=== PATIENT | female | born 1950 | race Caucasian/White ===

== ENCOUNTER 2018-02-22 06:00 | Day surgery (SDC) | payer MEDICARE, OTHER, SELFPAY ==
[2018-02-22] VITALS (8 sets, daily range): BP systolic 100–160; BP diastolic 58–104; PULSE 66–75; RESP 16–92; TEMP 36.3–36.9; O2SAT 93–98; BMI 36.1
[2018-02-22 07:00] LABS: Bedside Glucose 152 mg/dL (70-110)
--- NOTE | 2018-02-22 07:01 | PCM.HP.STD ---
Problem List (1) Screening for intestinal cancer Status: Acute History of Present Illness Date of Admission: 02/22/18 The patient is a 67 year old F who presents for screening for intestinal cancer. Her previous colonoscopy was 11 years ago. She denies any abdominal pain bright red blood per rectum or melena. She has not had any acute medical illnesses. There is no direct family member with colon polyps or colon cancer. She is enjoying a stable degree of health Past Medical History Allergies Penicillins [PCN] Allergy (Verified 02/20/18 09:18) Hives Sulfa (Sulfonamide Antibiotics) Allergy (Verified 02/20/18 09:18) Hives Home Medications: Ambulatory Orders Medication Instructions Recorded Levothyroxine [Synthroid] 50 mcg PO DAILY 06/17/15 Losartan/Hydrochlorothiazide 1 tab PO DAILY 06/17/15 [Hyzaar 50-12.5 Tablet] Omeprazole [Prilosec] 40 mg PO DAILY 06/17/15 Rosuvastatin Calcium [Crestor] 20 mg PO QHS 06/17/15 buPROPion XL [Wellbutrin Xl] 300 mg PO DAILY 06/17/15 Dicyclomine HCl [Bentyl] 10 mg PO PRN PRN 02/20/18 Metformin HCl 500 mg PO DAILY 02/20/18 Metoclopramide [Reglan] 10 mg PO TID PRN 02/20/18 Oxybutynin [Ditropan] 5 mg PO DAILY 02/20/18 Smoking Status: Never smoker Tobacco Use: Non-smoker Review of Systems Constitutional: Denies: Anorexia Eyes: Denies: Blurred vision HEENT: Denies: Difficulty Hearing Cardiovascular: Denies: Chest Pain Respiratory: Denies: Cough Gastrointestinal: Denies: Abdominal Pain Genitourinary: Denies: Dysuria Musculoskeletal: Reports: Joint Tenderness - Right knee pain Neurological: Denies: Balance problems Psychiatric: Denies: Anxiety Endocrine: Denies: Change in Body Habitus VTE Information - Inpt Only VTE Present on Admission: No Patient Problems: Active and Suspected Problems Screening for intestinal cancer (Acute) - Physical Exam General: Alert, Oriented x3, Cooperative, No apparent distress HEENT: Atraumatic Oral: Moist Mucosa Neck: Supple Lungs: Clear to auscultation Cardiovascular: Regular rate, Regular Rhythm Abdomen: Bowel Sounds Present, Soft, Non Tender Extremities: No clubbing Skin: No rashes Musculoskeletal: No Tenderness to Palpation of Joints or Extremities Lymphatic: No Cervical, Supraclavicular, or Inguinal Adenopathy Vital Signs Temp Pulse Resp BP Pulse Ox 98.5 F 66 18 155/89 H 97 02/22/18 06:40 02/22/18 06:40 02/22/18 06:40 02/22/18 06:40 02/22/18 06:40 Oxygen Delivery Method Room Air Weight: 210 lb 12.191 oz Body Mass Index (BMI) 36.1 POC Glucose 02/22/18 06:54 POC Glucose 152 H Assessment/Plan All Active Problems Screening for intestinal cancer (Acute) I plan to proceed with screening colonoscopy with possible biopsy or polypectomy is indicated. She is aware of the technique, benefits, risks, alternatives. We will proceed as noted. She presents via our open access program. Cc: Dr. Anca Escobar M.D., F.A.C.S.
--- NOTE | 2018-02-22 07:35 | PCM.OPRPT ---
Problem List (1) Screening for intestinal cancer Status: Acute Report of Operation Date of Procedure: 02/22/18 Pre-Operative Diagnosis: Screening for intestinal cancer Post-Operative Diagnosis: Extraordinarily tortuous lax sigmoid colon, sigmoid diverticulosis Surgery/Procedure Performed:: Colonoscopy Description of Surgical Findings:: Timeout informed consent was obtained. 67-year-old female was taken to the endoscopy suite. She was placed in a left lateral decubitus position. Throughout the procedure in aliquots she received a total of 100 mg Demerol 5 mg of Versed as intravenous sedation. Digital rectal exam performed. Lax anal tone. Grade 2-3 internal and external hemorrhoids. No mass lesions. Flexible colonoscope inserted in the rectum and immediately is difficult to obtain air insufflation due to the laxity of the anus. There was tortuosity of the sigmoid colon and extensive diverticulosis. Slowly and carefully the scope was advanced. I was able to get past the neck fracture. The patient was then placed supine and scope was further advanced. Transabdominal pressure was required to get the scope to go to the hepatic flexure and then down into the cecum. Bowel prep was good there still was some very few bits of scattered solid stool. I felt that I had adequate visualization. The cecum ileocecal valve area was achieved. The scope was carefully withdrawn from the ascending transverse descending and sigmoid colon. Due to the tight tortuosity of the sigmoid colon absolutely perfect visualization was extraordinarily difficult. I did not see any gross lesions. Excess fluid and air was aspirated free the procedure was completed with patient tolerating it well. Impression Extraordinarily tortuous sigmoid colon extensively involved with diverticulosis. Previous colonoscopy of 11 years prior. Next colonoscopy recommended in 10 years. Cc: Dr. Anca Escobar M.D., F.A.C.S. Type of Anesthesia:: IV Sedation
== END 2018-02-22 08:33 | disposition home or self-care (01) ==
LOC: EN 06:02 → AC 06:04
PROVIDERS: Family Provider Internal Medicine; PCP Internal Medicine; Visit Provider Surgery
PROC: 0DJD8ZZ Inspection of Lower Intestinal Tract, Via Natural or Artificial Opening Endoscopic (ICD-10-PCS; CPT 45378; principal; 2018-02-22 06:55)
DX: Z12.11 Encounter for screening for malignant neoplasm of colon (principal); K57.30 Diverticulosis of large intestine without perforation or abscess without bleeding; K64.2 Third degree hemorrhoids; K64.4 Residual hemorrhoidal skin tags; E11.9 Type 2 diabetes mellitus without complications; I10 Essential (primary) hypertension; E78.00 Pure hypercholesterolemia, unspecified; Z79.899 Other long term (current) drug therapy; Z78.0 Asymptomatic menopausal state; Z85.3 Personal history of malignant neoplasm of breast; Z90.12 Acquired absence of left breast and nipple; Z90.710 Acquired absence of both cervix and uterus
CPT/HCPCS: G0121; 82962; 99152; 99153; J7120

== ENCOUNTER → 2020-06-23 09:52 | Outpatient (CLI) | payer MEDICARE, OTHER, SELFPAY ==
[2020-06-17 09:19] VITALS: BMI 33.0
--- NOTE | 2020-06-23 09:56 | NM_ITS ---
CLINICAL: 69-year-old female with reported history of chronic nausea. SEMI-SOLID PHASE 99m Tc SULFUR COLLOID GASTRIC EMPTYING STUDY COMPARISON: None available FINDINGS: The patient was administered 1.1 mCi of 99m Tc sulfur colloid mixed with oatmeal and consumed per os. Image acquisitions in the anterior-posterior projections for a total of 60 minutes. There is prompt visualization of the stomach. There is no gastroesophageal reflux identified. The T ? linear fit was calculated to be 29.78 minutes, (Normal: 12-56 minutes). NM/Gastric Emptying Study IMPRESSION: 1. NORMAL 99m Tc sulfur colloid semi-solid phase (oatmeal) gastric emptying imaging examination. A. There is normal and preserved semi-solid phase gastric emptying compared to normal controls with maintained first order kinetics throughout all components of the examination. (Saima et al, J Nucl Med Tech 38: 186, 2010). Electronically Signed: Severo Moreland DO at 23:09 EST Tel , Service support ,
== END ==
PROVIDERS: PCP Internal Medicine; Referring Provider Surgery; Visit Provider Surgery
DX: R10.13 Epigastric pain (principal)
CPT/HCPCS: 78264; A9541

== ENCOUNTER 2020-07-16 07:42 | Day surgery (SDC) | payer MEDICARE, OTHER, SELFPAY ==
[2020-06-17 09:19] VITALS: BMI 33.0
[2020-07-16] VITALS (7 sets, daily range): BP systolic 99–136; BP diastolic 50–85; PULSE 67–87; RESP 16; TEMP 36.1–36.5; O2SAT 97–98; BMI 33.8
--- NOTE | 2020-07-16 07:50 | PCM.HP.BLA ---
Problem List (1) Epigastric pain Status: Acute (2) Nausea Status: Acute (3) Retrosternal pain Status: Acute History and Physical Date of Admission: 07/16/20 Intake Visit Reasons: EGD/ NAUSEA Chief Complaint: nausea/epigastric pain Executive Vice President Required: No Is patient in pain?: Yes Allergies Penicillins [PCN] Allergy (Verified 06/17/20 09:21) Hives Sulfa (Sulfonamide Antibiotics) Allergy (Verified 06/17/20 09:21) Hives Medications Omeprazole [Prilosec] 40 mg PO DAILY 06/17/15 [History Confirmed 06/17/20] buPROPion XL [Wellbutrin Xl] 300 mg PO DAILY 06/17/15 [History Confirmed 06/17/20] Dicyclomine HCl [Bentyl] 10 mg PO PRN PRN 02/20/18 [History Confirmed 06/17/20] Oxybutynin [Ditropan] 5 mg PO DAILY 02/20/18 [History Confirmed 06/17/20] biotin 1 mg capsule 1 mg PO DAILY 06/17/20 [History Confirmed 06/17/20] cholecalciferol (vitamin D3) 25 mcg (1,000 unit) capsule 25 mcg PO DAILY 06/17/20 [History Confirmed 06/17/20] fluticasone propionate 50 mcg/actuation nasal spray,suspension 1 spray INTRANASAL DAILY PRN 06/17/20 [History Confirmed 06/17/20] levothyroxine 50 mcg tablet 112 mcg PO DAILY tab 06/17/20 [History Confirmed 06/17/20] losartan 100 mg-hydrochlorothiazide 25 mg tablet 1 tab PO DAILY 06/17/20 [History Confirmed 06/17/20] metformin 500 mg tablet 500 mg PO BID tab 06/17/20 [History Confirmed 06/17/20] multivitamin 1 cap PO DAILY 06/17/20 [History] ondansetron HCl 4 mg tablet 4 mg PO Q8H PRN 06/17/20 [History Confirmed 06/17/20] rosuvastatin 20 mg tablet 10 mg PO QHS tab 06/17/20 [History Confirmed 06/17/20] sucralfate 1 gram tablet 1 g PO QAC PRN 06/17/20 [History Confirmed 06/17/20] vit C,E,zinc,copper-[id number] 250 mg-lutein 5 mg-zeaxanthin 1 mg capsule 1 cap PO DAILY 06/17/20 [History Confirmed 06/17/20] [facility] Medical History (Updated 06/17/20 @ 12:[address] Emerson Escobar MD) Retrosternal pain (Acute) Nausea (Acute) Epigastric pain (Acute) Screening for intestinal cancer (Acute) Asthma (Acute) Constipation (Acute) Diabetes (Acute) Diarrhea (Acute) Epigastric pain (Acute) GERD (gastroesophageal reflux disease) (Acute) History of left breast cancer (Acute) Hypercholesterolemia (Acute) Nausea (Acute) Thyroid disease (Acute) Hypertension (Chronic) Surgical History (Updated 06/17/20 @ 09:18 by Jina Cheng) History of appendectomy (Acute) History of bilateral knee replacement (Acute) History of cholecystectomy (Acute) History of hysterectomy (Acute) History of left mastectomy (Acute) History of left salpingo-oophorectomy (Acute) history choledochojejunostomy (Acute) history excision lipoma neck (Acute) Family History (Updated 06/17/20 @ 09:19 by Jina Cheng) Father Heart disease Mother Cancer Lung cancer Social History (Updated 06/17/20 @ 12:[address] Emerson Escobar MD) Smoking Status: Never smoker alcohol intake: never substance use type: does not use HPI HPI HPI: ROSSANA GRAHAM, is a 69 F who presents to the office today for surgical consultation. For ever she has had problems with nausea epigastric discomfort some diarrhea. Her primary care physician Dr. Anca Valencia has helped manage her. She does take Bentyl as needed with some improvement. She has been on Prilosec or similar proton pump inhibitor for prolonged period of time. She actually had better relief from AcipHex in previous years but insurance denied her coverage recently she has been awakening at night. She complains of a discomfort in the retrosternal area. She has burning in the epigastrium. No appetite nausea some intermittent diarrhea. She denies fever or chills or cough or shortness of breath or history of DVT. She has not noticed any bright red blood per rectum or melena. February 22, 2018 I performed a screening colonoscopy for her. She had an extraordinarily tortuous and lax sigmoid colon as well as sigmoid diverticulosis but no other acute findings. Previously August 07, 2015 Dr. Gus Cerrato performed an upper endoscopy. A medium size hiatal hernia was present. The stomach was felt to be normal. Helicobacter was negative at that time. There was bilious gastric fluid identified. H. pylori was negative. Stomach biopsies showed slight reactive gastropathy. In addition to the patient's PPI she has previously been prescribed Carafate. Also to in the past she is been prescribed cholestyramine with some improvement. She was disappointed however that the cholestyramine caused significant constipation causing her to cease that medication. As of June 03, 2020 her liver function tests were normal. Glucose 133. BUN 20 and creatinine 0.78. White blood cell count was 6.8 with a hemoglobin 13.5 and hematocrit of 42.4 and a platelet count of 230,000. Normal differential. Hemoglobin A1c was 6.8. Her TSH was slightly low at that setting at 0.115. HPI HPI HPI: ROSSANA GRAHAM, is a 69 F who presents to the office today for ROS General General: Yes fatigue and breast cancer; no weight change, appetite, colon cancer or weakness HEENT HEENT: No difficulty swallowing, eye injury, eye surgery, swollen glands or hoarseness Endo Endocrine: Yes thyroid disease and diabetes mellitus; no thyroid cancer, Hair loss, heat intolerance or cold intolerance Skin Skin: No rash or changing moles Breast Breast: No left breast lump, right breast lump, nipple discharge, breast pain, abnormal mammogram, abnormal US or breast enlargement Musc Musculoskeletal: No back problems, arthritis, rheumatoid arthritis, gout or joint pain Cardio Cardiovascular: Yes high blood pressure; no murmur, pacemaker, heart disease, atrial fibrillation, heart attack, heart stent, palpitations, shortness of breat with exertion or chest pain Psych Psychiatric: No depression, anxiety or hearing voices Resp Respiratory: No shortness of breath, No sleep apnea, No cough, No COPD, Yes asthma, No emphysema, No wheezing Gastro Gastrointestinal: Yes abdominal pain, Yes nausea or vomiting, Yes diarrhea, Yes constipation, No blood in stool, Yes acid reflux, No hemorrhoids, No ulcers, No gallbladder problem, No black,tarry stools Lars Hematologic: No blood thinners, No blood disorders, No bleeding, No anemia, No blood clots Neuro Neurologic: No system reviewed and no additional complaints, except as docu, No as per HPI, No abnormal walking, No abnormal hearing, No abnormal movements, No abnormal speech, No behavioral changes, No burning sensations, No confusion, No seizure-like activity, No unsteadiness, No dizziness, No localized weakness, No frequent falls, No headache(s), No lack of coordination, No loss of vision, No memory loss, No numbness, No other visual disturbances, No radiating pain, No restless legs, No sensory deficit, No fainting, No tingling, No tremor(s), No weakness, No other Exam Const General: cooperative, comfortable, no acute distress, well developed Nutritional Appearance: obese Orientation: alert, awake [facility] Head: normal to inspection Eyes General: appearance normal, both eyes and all related structures Chest Chest palpation & inspection: normal inspection of the chest Breast Palpation: No nipple discharge Resp Effort & Inspection: normal respiratory effort Auscultation: clear to auscultation bilaterally Cardio Rate: regular rate Rhythm: regular rhythm Heart Sounds: no murmurs GI Palpation: soft, no hepatosplenomegaly Auscultation: normal bowel sounds Musc Cervical Spine: normal cervical lordosis Neuro General: alert, awake Extrem General: calf tenderness Psych Thought Process: normal Assessment & Plan Problems 1. Epigastric pain R10.13 2. Nausea R11.0 3. Retrosternal pain R07.2 Plan 69-year-old female with signs and symptoms that might suggest bile reflux gastritis. She has had a previous upper endoscopy demonstrating bile within the stomach. She does not recall having had a gastric emptying study. She has currently been represcribed Carafate but that just was started 3 days ago and she has not noticed any difference. It is of additional note that she was remotely prescribed cholestyramine with improvement however with severe constipation causing it to be ceased. She does not ever recall having had a gastric emptying study. I am recommending that at this time. I am also recommending to her a esophagogastroduodenoscopy with anticipated biopsy. I would inspect carefully duodenum stomach esophagus. I would be anticipating biopsies at all site. Very careful inspection for possible H. pylori or even eosinophilic esophagitis to correlate with the retrosternal discomfort would be pursued. She has a known hiatal hernia but her symptoms appear more varied than that. It may very well be that some combination or alternation of cholestyramine with Carafate might benefit her in the future. 1 would have to contemplate how to counteract the cholestyramine constipation She has had an opportunity to ask and have questions answered. We will schedule procedure at her discretion. I appreciate the ongoing opportunity of assisting with her surgical care. Copy: Dr. Anca Escobar M.D., F.A.C.S. Orders Orders: EGD Today R10.13, R11.0 Gastric Emptying Study Today R10.13 Coding Level of Care Code Off vis,est,level 3 Diagnoses Epigastric pain R10.13 Nausea R11.0 Retrosternal pain R07.2 I have re-examined the patient. There are no clinical changes since date of exam. Procedure Criteria Procedure Type: Elective COVID Risk Discussion: The surgeon/proceduralist and patient have discussed in detail the risk of exposure to and/or potential harm posed by the COVID-19 virus with having a surgery/procedure at this time versus the risk of delaying the surgery/procedure. It is not possible to know either the risk of delaying the surgery or procedure or chance of getting an infection with perfect accuracy, but a joint decision was made between the patient and the surgeon/proceduralist to proceed at this time with the scheduled surgery/procedure as indicated on the consent form.
[2020-07-16 08:15] LABS: Bedside Glucose 142 mg/dL (70-110)
--- NOTE | 2020-07-16 08:45 | IMM_PTH ---
PATIENT: ROSSANA GRAHAM LOC: EN U#:[id number] AGE/SX: 70/F ROOM: RE07/16/[address]: Dr. Emerson Escobar MD : 1950 BED: DIS: 07/16/2020 SPEC #: [id number] RECD: 07/16/20 13:08 STATUS: MAGDA REQ #: [id number] DOMI: 07/16/20 08:[address]: Emerson Escobar DEPT: IMMUNOHISTOCHEMISTRY RECD BY: Iman Canela ENTERED: 07/16/20 13:08 SP TYPE: IMMUNO OTHR DR: Dr. Anca Valencia MD Tissues: B - Stomach, NOS Procedures: H Pylori (initial) PHYSICIAN & INSTITUTION [place] [id number] SPECIMEN INFORMATION: Tissue Source: B - Antrum biopsy Clinical Info: Epigastric pain, nausea, retrosternal pain Specimen Number: [id number] CPT code: 86159 METHODOLOGY: Deparaffinized sections of prefer/formalin-fixed tissue or PAP/DQ stained slides are incubated with monoclonal/polyclonal antibodies/oligonucleotide probes. Localization is made via biotin free immunoperoxidase method. Appropriate controls are performed and reacted as expected. Results on target cell population are indicated in the following table: RESULTS: ANTIBODY / CLONE RESULT Block B H Pylori (polyclonal) negative These tests were developed and their performance characteristics determined by [facility]. They may not have been cleared or approved by the U.S. Food and Drug Administration. The FDA has determined that such clearance or approval is not necessary. INTERPRETATION: B. Antrum, biopsy: Negative for Helicobacter pylori organisms. SJ:adam 07/20/2020
--- NOTE | 2020-07-16 08:45 | EGD_PTH ---
PATIENT: ROSSANA GRAHAM LOC: EN U#:[id number] AGE/SX: 70/F ROOM: RE07/16/[address]: Dr. Emerson Escobar MD : 1950 BED: DIS: 07/16/2020 SPEC #: [id number] RECD: 07/16/20 11:27 STATUS: MAGDA REEliz #: [id number] DOMI: 07/16/20 08:[address]: Emerson Escobar DEPT: SURGICAL PATHOLOGY RECD BY: Sindi Crockett ENTERED: 07/16/20 12:07 SP TYPE: EGD BIOPSY OTHR DR: Dr. Anca Valencia MD Tissues: A - Duodenum, NOS B - Gastric mucous membrane C - Gastric mucous membrane D - Esophagus, NOS E - Esophagus, NOS Procedures: Special Stain Group II Surgery Specimen Level IV Alcian Blue/PAS (control) HEADER OPERATION: EGD ([facility] [place]) PRE-OP DIAGNOSIS: Epigastric pain, nausea, retrosternal pain TISSUE SUBMITTED: A - Duodenum biopsy, B - Antrum biopsy for H. pylori and path, C - Greater curvature polyp biopsy, D - Distal esophagus biopsy, E - Mid esophagus biopsy MICROSCOPIC DIAGNOSIS A. Duodenum, biopsy: A fragment of duodenal mucosa, no pathologic diagnosis. B. Antrum, biopsy: Mild gastritis. See microscopic description and comment. C. Greater curvature polyp, biopsy: Fundic gland polyp. D. Distal esophagus, biopsy: A fragment of gastroesophageal mucosa with minimal chronic inflammation. Intestinal metaplasia (goblet cell metaplasia) not identified. See comment. E. Mid esophagus, biopsy: A fragment of squamous epithelium, no pathologic diagnosis. SJ:adam 07/19/2020 COMMENT B. The results of immunohistochemistry for Helicobacter pylori will be reported separately ([id number]). D. The specimen predominantly consists of squamous mucosa. Alcian blue/PAS stain with matched control is used in the evaluation of the specimen. MICROSCOPIC DESCRIPTION Slides are reviewed. B. The specimen shows fragments of gastric mucosa with chronic inflammatory cell infiltrates in the lamina propria consisting of lymphocytes and plasma cells, consistent with mild chronic gastritis. GROSS DESCRIPTION A - Received in fixative is one container labeled with the patient's name and designated duodenum biopsy. The specimen consists of one irregular fragment of light childs soft tissue that measures 0.3 x 0.3 x 0.1 cm. The specimen is totally submitted in one cassette. B - Received in fixative is one container labeled with the patient's name and designated antrum biopsy. The specimen consists of one irregular fragment of light childs soft tissue that measures 0.3 x 0.3 x 0.1 cm. The specimen is totally submitted in one cassette. C - Received in fixative is one container labeled with the patient's name and designated greater curvature polyp biopsy. The specimen consists of two irregular fragments of light childs soft tissue that in aggregate measure 0.5 x 0.2 x 0.1 cm. The specimen is totally submitted in one cassette. D - Received in fixative is one container labeled with the patient's name and designated distal esophagus biopsy. The specimen consists of one irregular fragment of light childs soft tissue that measures 0.3 x 0.3 x 0.1 cm. The specimen is totally submitted in one cassette. E - Received in fixative is one container labeled with the patient's name and designated mid esophagus biopsy. The specimen consists of one irregular fragment of light childs soft tissue that measures 0.4 x 0.3 x 0.1 cm. The specimen is totally submitted in one cassette. / SJ:rg 07/16/20 TC:3 CPT: 01971 x5, 47858
[2020-07-16] MEDS: Lactated Ringers 1,000 ML 100 ML IV (08:57)
--- NOTE | 2020-07-16 08:58 | OP.EGD_ITS ---
Patient Name: Marjorie Copeland Procedure Date: 07/16/2020 8:32 AM Date of : 1950 Age: 70 Procedure: Upper GI endoscopy Indications: Epigastric abdominal pain, Heartburn Providers: Emerson Escobar MD Referring MD: Emerson Escobar MD Medicines: See the Anesthesia note for documentation of the administered medications Complications: No immediate complications. Procedure: Pre-Anesthesia Assessment: - Prior to the procedure, a History and Physical was performed, and patient medications and allergies were reviewed. The patient's tolerance of previous anesthesia was also reviewed. The risks and benefits of the procedure and the sedation options and risks were discussed with the patient. All questions were answered, and informed consent was obtained. Prior Anticoagulants: The patient has taken no previous anticoagulant or antiplatelet agents. ASA Grade Assessment: II - A patient with mild systemic disease. After reviewing the risks and benefits, the patient was deemed in satisfactory condition to undergo the procedure. After obtaining informed consent, the endoscope was passed under direct vision. Throughout the procedure, the patient's blood pressure, pulse, and oxygen saturations were monitored continuously. The gastroscope was introduced through the mouth, and advanced to the second part of duodenum. The upper GI endoscopy was accomplished without difficulty. The patient tolerated the procedure well. Scope In: 8:42:58 AM Scope Out: 8:49:16 AM Total Procedure Duration Time 0 hours 6 minutes 18 seconds Findings: LA Grade A (one or more mucosal breaks less than 5 mm, not extending between tops of 2 mucosal folds) esophagitis with no bleeding was found 32 cm from the incisors. Biopsies were taken with a cold forceps for histology. A small hiatal hernia was present. Diffuse moderately erythematous mucosa without bleeding was found in the gastric antrum. Biopsies were taken with a cold forceps for histology. Bilious fluid was found in the stomach. The examined duodenum was normal. Biopsies were taken with a cold forceps for histology. The middle third of the esophagus was normal. Biopsies were taken with a cold forceps for histology. A few sessile polyps with no stigmata of recent bleeding were found on the greater curvature of the stomach. The polyp was removed with a cold biopsy forceps. Resection and retrieval were complete. Impression: - LA Grade A reflux esophagitis. Biopsied. - Small hiatal hernia. - Erythematous mucosa in the antrum. Biopsied. - Bilious gastric fluid. - Normal examined duodenum. Biopsied. - Normal middle third of esophagus. Biopsied. Recommendation: - Await pathology results. - Discharge patient to home. - Resume previous diet. - Continue present medications. - Telephone my office for pathology results in 1 week. Bile reflux gastritis, small hiatal hernia with minimal reflux esophagitis. Foreshorten esophagus 32cm. Ongoing medical care for binding bile and cytoprotection Procedure Code(s): --- Professional --- 36763, Esophagogastroduodenoscopy, flexible, transoral; with biopsy, single or multiple Diagnosis Code(s): --- Professional --- K21.0, Gastro-esophageal reflux disease with esophagitis K44.9, Diaphragmatic hernia without obstruction or gangrene K31.89, Other diseases of stomach and duodenum R10.13, Epigastric pain R12, Heartburn CPT copyright 2017 [employer]. All rights reserved. The codes documented in this report are preliminary and upon intern review may be revised to meet current compliance requirements. Emerson Escobar MD 07/16/2020 8:58:06 AM This report has been signed electronically. Number of Addenda: 0 Note Initiated On: 07/16/2020 8:32 AM
--- NOTE | 2020-07-16 08:58 | OP.CCLET_ITS ---
07/16/2020 Anca Valencia [address] [place] [address] Re : Upper GI endoscopy procedure for Marjorie Copeland Dear Dr. Valencia This procedure was performed on Thursday, July 16, 2020. My impressions and recommendations are as follows: Impressions : - LA Grade A reflux esophagitis. Biopsied. - Small hiatal hernia. - Erythematous mucosa in the antrum. Biopsied. - Bilious gastric fluid. - Normal examined duodenum. Biopsied. - Normal middle third of esophagus. Biopsied. Recommendations : - Await pathology results. - Discharge patient to home. - Resume previous diet. - Continue present medications. - Telephone my office for pathology results in 1 week. Bile reflux gastritis, small hiatal hernia with minimal reflux esophagitis. Foreshorten esophagus 32cm. Ongoing medical care for binding bile and cytoprotection My findings are described in the full procedure note, which is enclosed. If I can be of further assistance, please feel free to contact me at Doctor phone number(s): Work: . Sincerely, Emerson Escobar MD 07/16/2020 8:58:06 AM This report has been signed electronically.
== END 2020-07-16 09:30 | disposition home or self-care (01) ==
LOC: EN 07:44 → AC 07:44
PROVIDERS: PCP Internal Medicine; Referring Provider Surgery; Visit Provider Surgery
PROC: 0DJ08ZZ Inspection of Upper Intestinal Tract, Via Natural or Artificial Opening Endoscopic (ICD-10-PCS; CPT 43235; principal; 2020-07-16 08:40)
DX: K29.50 Unspecified chronic gastritis without bleeding (principal); R10.13 Epigastric pain; K44.9 Diaphragmatic hernia without obstruction or gangrene; K21.00 Gastro-esophageal reflux disease with esophagitis, without bleeding; K31.89 Other diseases of stomach and duodenum; K59.00 Constipation, unspecified; E11.9 Type 2 diabetes mellitus without complications; I10 Essential (primary) hypertension; K58.9 Irritable bowel syndrome, unspecified; E78.00 Pure hypercholesterolemia, unspecified; E07.9 Disorder of thyroid, unspecified; Z78.0 Asymptomatic menopausal state; Z79.84 Long term (current) use of oral hypoglycemic drugs; Z85.3 Personal history of malignant neoplasm of breast; Z96.653 Presence of artificial knee joint, bilateral
CPT/HCPCS: 43239; 82962; 87426; 88305; 88313; 88342; C9803; J7120; J2405

== ENCOUNTER → 2023-10-02 | Outpatient (CLI) | payer MEDICARE, OTHER, SELFPAY ==
[2023-10-02 18:05] LABS: CRP < 2.90 mg/L (0.0-3.0)
[2023-10-05 07:08] LABS: Endomysial Antibody IgA Negative (Negative); Immunoglobulin A 162 mg/dL (64-422); t-Transglutaminase IgA <2 U/mL (0-3)
== END | disposition home or self-care (01) ==
LOC: MTLAB 15:08
PROVIDERS: PCP Internal Medicine; Referring Provider Internal Medicine Gastroenterology; Visit Provider Internal Medicine Gastroenterology
DX: R10.9 Unspecified abdominal pain (principal); R19.7 Diarrhea, unspecified
CPT/HCPCS: 36415; 82784; 83516; 86140; 86255

== ENCOUNTER → 2023-10-04 | Outpatient (CLI) | payer MEDICARE, OTHER, SELFPAY ==
[2023-10-10 15:08] LABS: Calprotectin, Stool 84 ug/g (0-120)
== END | disposition home or self-care (01) ==
LOC: MTLAB 14:46
PROVIDERS: PCP Internal Medicine; Referring Provider Internal Medicine Gastroenterology; Visit Provider Internal Medicine Gastroenterology
DX: R10.9 Unspecified abdominal pain (principal); R19.7 Diarrhea, unspecified
CPT/HCPCS: 83993

== ENCOUNTER 2024-01-09 12:00 | Outpatient (RCR) | payer MEDICARE, OTHER, SELFPAY ==
--- NOTE | 2024-01-14 13:52 | HP.PTEVAL_ITS ---
Patient's Visit Information Visit Information Visit Information: ROSSANA GRAHAM is a 73 year old F referred to Physical Therapy by Dr. Consuelo Hilario MD with a diagnosis of Stress Urinary Incontinence. Date of Evaluation: 12/07/23 Physical Therapist: Valerie Perez PT, Cert MDT Visit Plan Frequency: 1x/Week Duration: 2-4 Months Plan: PF THERAPY FOR STRENGTHENING, LENGTHENING/RELAXATION AND ENDURANCE TRAINING. URINARY URGE AND FREQUENCY EDUCATION. HEALTHY BLADDER HABIT EDUCATION. TRAINING IN COORDINATION OF PELVIC FLOOR MUSCULATURE WITH HIP AND CORE (TRANSVERSE ABDOMINUS) MUSCULATURE. CORE STRENGTHENING. ROGER LE ROM, STRETCHING AND STRENGTHENING. TRAINING IN ABDOMINAL CAVITY PRESSURE MGMT WITH ADL'S. Subjective Subjective: Work/Leisure: RETIRED. LIVES WITH . Present symptoms: URINARY INCONTINENCE. PATIENT REPORTS IT DOESN'T STOP HER FROM DOING ANYTHING - I JUST WEAR PADS. WEARING 2-3 PADS A DAY ON AVERAGE. Present since: ABOUT 4 YEARS Pain Scale: PATIENT DENIES PAIN Is it getting better, worse or staying the same: GETTING BETTER AT NIGHT WITH CURRENT MEDICATION - NEW MEDICATION STARTED ABOUT 3 MONTHS AGO Commenced as a result of: NO APPARENT REASON Worse: COUGHING, LIFTING, SNEEZING, WAITING TOO LONG TO GO TO THE BATHROOM Better: MEDICATION Disturbed sleep: CURRENTLY GETTING UP TO URINATE ABOUT 3 TIMES A NIGHT BUT WAS 5-6 TIMES. Previous history/Previous treatment: ONE OTHER MEDICATION IN THE PAST - IT JUST STOP WORKING. HYSTERECTOMY AND TUBAL . HAD URETHRA STRETCHED ABOUT 4 TIMES YOUNG ADULT TO ALLOW BLADDER TO EMPTY - NO LONGER HAVING DIFFICULTY - WAS CAUSING INFECTION. MOTHER, DAUGHTER AND BROTHER ALSO HAD TO HAVE THE PROCEEDURE. *Patient has had lumbar surgery by Dr. Roa for herniated disc a long time ago*. Treatment this episode: MEDICATION Gait: NORMAL How long can you delay the need to urinate: USUALLY ONE TO TWO MINUTES Prolapse (Falling out feeling): NO Frequency of Urination: ABOUT EVERY 2 HOURS Ability to stop urine flow: PATIENT ISN'T SURE Ability to initiate urine stream: YES Dyspareunia: NO Bowel Incontinence: YES - SEEING DR. MCGUIRE Accidents: NO Unexplained weight loss: NO Imaging: NONE RECENT PMH/Recent major surgery: Fibromyalgia (treated with acupuncture and massage). Back Surgery. H/O Polio as a child. Retrosternal pain Nausea Epigastric pain Constipation Diarrhea GERD (gastroesophageal reflux disease) Asthma Hypertension Diabetes Thyroid disease Hypercholesterolemia History of left breast cancer Nausea Epigastric pain Screening for intestinal cancer History of hysterectomy [history excision lipoma neck] [history choledochojejunostomy] History of left mastectomy History of bilateral knee replacement History of left salpingo-oophorectomy History of cholecystectomy History of appendectomy Objective Objective: Sitting/Standing Posture: ANTERIOR PELVIC TILT. FH. RSH'S. INCREASED KYPHOSIS. Other Observations: INDEP GAIT AND TRANSFERS Sensory deficit: ROGER LE LIGHT TOUCH SENSATION GROSSLY INTACT AND SYMMETRICAL ROM deficit: ROGER HIP FLEX, HS, HIP ADD, HIP ROTATOR AND CALF TIGHTNESS. Motor deficit: ROGER LE'S GROSSLY 4/5 EXCEPT ANKLES 5/5. PELVIC FLOOR STRENGTH TESTED 12/21/23: 2/5 X 3 SEC X 3 REPS. Dural Signs: NEGATIVE ROGER LE'S. Lumbar mvmt loss: flex - MOD ext - MOD R SG - MOD L SG - EARNESTINE PATIENT DENIES PAIN WITH LUMBAR ROM TESTING. STATES SHE HAS A TENDENCY TO HAVE SOME LBP BUT ONLY IF SHE OVER-DOES IT. Core strength: POOR Palpation: PATIIENT DEFERRED PELVIC EXAM TO A FUTURE GARRISON'T DUE TO BEING ON MEDICINE FOR RECENT ILLNESS AND NOT FEELING UP TO IT/LIKE HERSELF. 12/21/23: PATIENT AGREEABLE TO HAVE PELVIC FLOOR TESTED THIS DATE AND DID NOT HAVE PELVIC FLOOR TENDERNESS OR TRIGGER POINTS WITH EXAM. FUNCTIONAL SCREEN: Incontinence Impact Questionnaire Score: 0 Urogenital Distress Inventory Score: 7 Goals Goal 1:: DECREASE URINARY LEAKAGE EPISODES TO ONE OR LESS PER DAY Goal Time Frame: 8-12 Weeks Goal 2:: PATIENT WILL SUCCESSFULLY DELAY VOIDING LONG NEEDED WHEN URGENCY OCCURS TO SUCCESSFULLY MAKE IT TO THE BATHROOM. Goal Time Frame: 4-6 Weeks Goal 3:: PATIENT WILL DEMONSTRATE/COMMUNICATE 10 CONSISTENT AND CONSECUTIVE 10 SECOND PELVIC FLOOR MUSCLE CONTRACTIONS TO DEMONSTRATE IMPROVED PELVIC FLOOR ENDURANCE. Goal Time Frame: 8-12 Weeks Goal 4:: DEVELOP HEALTHY FLUID INTAKE HABITS WITH FLUID INTAKE OF ? BODY WEIGHT IN OUNCES PER DAY AND 2/3 BEING WATER. Goal Time Frame: 4-6 Weeks Goal 5:: NORMALIZE VOIDING FREQUENCEY TO EVERY 3-4 HOURS. Goal Time Frame: 6-8 Weeks Goal 6:: PATIENT WILL BE INDEP WITH A HEP/HOME INSTRUCTIONS FOR CONTINUED IMPROVEMENT ONCE FORMAL PHYSICAL THERAPY CONCLUDES. Goal Time Frame: 8-12 Weeks Rehabilitation Potential Physical Therapy Diagnosis: THIS PATIENT PRESENTS TO PT WITH SYMPTOMS OF STRESS INCONTINENCE, URGE INCONTINENCE, AND URINARY FREQUENCY. SHE HAS CORE WEAKNESS, CORE STIFFNESS, LE WEAKNESS AND STIFFNESS ALONG WITH PF WEAKNESS. Rehabilitation Potential: Good Anticipated Interventions Patient/Client Instruction: Educate patient on: Condition, Plan of Care and Risk Factors For the Purpose of:: To improve self management Therapeutic Exercise to Include: Strength training, Endurance training, Postural training, Flexibilty training and Neuromotor development For the Purpose of:: To improve muscle performance and motor function, To increase tolerance to activity/condition/position and To increase flexibility/ROM Text: Thank you for the opportunity to evaluate your patient. For Medicare and Medicare HMO plans, please review the plan of care and approve it. It will need to be FAXED BACK to us at [phone] for Medicare purposes. For Medicare only, by signing this I certify the plan of care. Please let me know if there are questions or concerns regarding this plan of care. Physician Signature: Date:
== END 2024-01-09 19:00 | disposition home or self-care (01) ==
LOC: PT 12:00
PROVIDERS: PCP Internal Medicine; Referring Provider Obstetrics & Gynecology; Visit Provider Obstetrics & Gynecology
DX: N39.3 Stress incontinence (female) (male) (principal)
CPT/HCPCS: 97162; 97530

== ENCOUNTER 2024-04-04 12:05 | Emergency (ER) | payer MEDICARE, OTHER, SELFPAY ==
[2024-04-04 12:06] VITALS: BP 159/83; PULSE 62; RESP 15; TEMP 36.8; O2SAT 96; BMI 32.8
--- NOTE | 2024-04-04 12:26 | CT_ITS ---
STUDY: CT FACIAL BONES WITHOUT CONTRAST REASON FOR EXAM: Female, 73 years old. orbital emphysema and swelling. Recent sinus surgery. RADIATION DOSAGE (If Supplied By Facility): CTDIvol = ( 29.38 ) mGy, DLP = ( 518.07 ) mGycm TECHNIQUE: The patient was scanned in a multi detector CT scanner. Sagittal and coronal images were reconstructed. Individualized dose optimization techniques were used for this CT. COMPARISON: None. FINDINGS: Normal soft tissue structures. Normal orbital gaytan and orbital contents. Normal nasal bones and anterior nasal spine. Normal facial bones. There is no demonstrated fracture. There is opacification of the ethmoid sinuses. Mucosal thickening of the maxillary sinuses. Mild mucosal thickening of the anterior aspect of the sphenoid sinus. Mucosal thickening of the right frontal sinus. CT/Sinus/Facial Bone IMPRESSION: Partial opacification of the ethmoid sinuses. Mucosal thickening of the maxillary sinuses and sphenoid sinuses. Electronically Signed: Alex Campo MD at 13:08 EDT ,
--- NOTE | 2024-04-04 12:28 | EX.ED.VIS.EY ---
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 Patient underwent sinuplasty in the operating room at [facility] on Sunday. Postoperatively she felt dizziness and nausea and they took her to the emergency room where she underwent a stroke evaluation was admitted to the hospital. He was felt that she had a negative MRI and that she did not have a stroke. She followed up with her family bill poster installer who referred her to ophthalmology today. At the risk management consultant office it was noted that she had restriction in upward gaze in the left eye. Her eye pressures were normal. Ophthalmology Dr. García reviewed the images with local ENT Dr. Esquivel who felt concern for orbital emphysema possibly entrapment of the eye muscles and was sent to the emergency room for CT scan of the orbits/sinuses. Patient is not on any blood thinners. No recent fevers. [facility] Medical History Retrosternal pain Nausea Epigastric pain Constipation Diarrhea GERD (gastroesophageal reflux disease) Asthma Hypertension Diabetes Thyroid disease Hypercholesterolemia History of left breast cancer Nausea Epigastric pain Screening for intestinal cancer Home Medications ?Medication ?Instructions ?Recorded ?Last Taken ?Type bupropion HCl 300 mg 24 hr tablet, 300 mg PO DAILY 06/17/15 Unknown History extended release omeprazole 40 mg capsule,delayed 40 mg PO DAILY 06/17/15 Unknown History release dicyclomine 10 mg capsule 10 mg PO PRN PRN cramps 02/20/18 Unknown History oxybutynin chloride 5 mg tablet 5 mg PO DAILY 02/20/18 Unknown History biotin 1 mg capsule 1 mg PO DAILY 06/17/20 Unknown History cholecalciferol (vitamin D3) 25 25 mcg PO DAILY 06/17/20 Unknown History mcg (1,000 unit) capsule fluticasone propionate 50 1 spray intranasal DAILY PRN 06/17/20 Unknown History mcg/actuation nasal Congestion spray,suspension (Children's Flonase Allergy Relief) levothyroxine 50 mcg tablet 112 mcg PO DAILY 06/17/20 Unknown History losartan 100 1 tab PO DAILY 06/17/20 Unknown History mg-hydrochlorothiazide 25 mg tablet metformin 500 mg tablet 500 mg PO BID 06/17/20 Unknown History multivitamin 1 cap PO DAILY 06/17/20 Unknown History ondansetron HCl 4 mg tablet 4 mg PO Q8H PRN zofran 06/17/20 Unknown History (Zofran) rosuvastatin 20 mg tablet 10 mg PO QHS 06/17/20 Unknown History sucralfate 1 gram tablet (Carafate) 1 g PO 4X/DAY 06/17/20 Unknown History Neuriva 1 tab PO DAILY 07/09/20 Unknown History ascorbic acid (vitamin C) 500 mg 500 mg PO DAILY 07/09/20 Unknown History capsule elderberry fruit 460 mg-elderberry 1 ea PO 07/09/20 Unknown History flower 115 mg capsule vit C,E,zinc,copper-omega3 250 1 ea PO DAILY 07/09/20 Unknown History mg-lutein 5 mg-zeaxanthin 1 mg capsule zinc 50 mg tablet 50 mg PO 07/09/20 Unknown History cholestyramine (with sugar) 4 gram 4 g PO BID #180 ea 07/16/20 Unknown Rx powder for susp in a packet doxycycline monohydrate 100 mg 100 mg PO BID #20 CAPSULES 04/04/24 Unknown Rx capsule Allergy/AdvReac Type Severity Reaction Status Date / Time ciprofloxacin (From Cipro) Allergy Mild Hives Verified 04/04/24 12:09 Penicillins (PCN) Allergy Hives Verified 04/04/24 12:09 Sulfa (Sulfonamide Allergy Hives Verified 04/04/24 12:09 Antibiotics) Family History Father Heart disease Mother Cancer Lung cancer Surgical History History of hysterectomy history excision lipoma neck history choledochojejunostomy History of left mastectomy History of bilateral knee replacement History of left salpingo-oophorectomy History of cholecystectomy History of appendectomy Social History Smoking Status: Never smoker alcohol intake: never substance use type: does not use ROS ROS ED Constitutional Constitutional ED: Denies chills, fever(s) or weight loss Eyes Eyes: Reports change in vision and diplopia ENT ENT ED: Denies ear pain, rhinorrhea or sore throat Cardiovascular Cardiovascular: Denies chest pain, orthopnea, palpitations or racing heartbeat Respiratory/Chest Respiratory/Chest: Denies cough, dyspnea or orthopnea Gastrointestinal Gastrointestinal: Reports nausea; Denies abdominal pain, diarrhea or vomiting Genitourinary Genitourinary ED: Denies dysuria, hematuria or urinary frequency Musculoskeletal Musculoskeletal: Denies arthralgias or myalgias Integumentary Denies abscess or rash Neurologic Neurologic: Denies headache(s) or weakness Psychiatric Psychiatric: Denies anxiety, depression, suicidal ideation or suicidal thoughts Endocrine Endocrinology: Denies polydipsia, polyphagia or polyuria Allergic/Immunologic Allergic/Immunologic ED: Denies mouth swelling, tongue swelling or urticaria EXAM Physical Exam Const Vital Signs: 04/04/24 12:06 Temperature 98.2 F Temperature Source Oral Pulse Rate 62 Respiratory Rate 15 Blood Pressure 159/83 H Blood Pressure Mean 108 Pulse Ox 96 Oxygen Delivery Method Room Air Positive well nourished and well developed General Appearance ED: well developed HEENT Reports normocephalic, head/scalp atraumatic and moist mucous membranes Eyes EOMs intact bilaterally Eyes Narrative: Pupils appear dilated bilaterally. Patient has pain with movement of the eye horizontally. There is mild infraorbital bruising particularly on the right Neck no lymphadenopathy, supple and no JVD Resp normal respiratory effort and clear to auscultation bilaterally Cardio regular rate, regular rhythm and no murmurs GI normal to inspection, nondistended, normoactive bowel sounds and non-tender Palpation: soft Back/Spine no CVA tenderness and normal ROM Extremity normal to inspection General Extremety ED: Negative for edema General Extremity: Negative for edema Neuro oriented x3 and CN's II-XII intact bilaterally Sensorium / Orientation: alert Motor Exam: strength 5/5 throughout Psych mental status grossly normal Mood & Affect: Negative for depressed or tearful Skin no rashes or lesions noted and no wounds MDM MDM MDM Narrative Medical decision making narrative: Differential diagnosis includes but not limited to orbital emphysema orbital abscess orbital wall fracture orbital hematoma Noncontrasted CT was obtained read by radiology reviewed by myself. I also discussed the case again with Dr. García who reviewed it with Dr. Esquivel. Patient will be discharged home on prednisone and they have asked that I cover her with some doxycycline. Dr. García will be able to see her in the office Sunday morning at 0930 hrs. Return if worsening or concerns History & Record Review Discussion w/independent historian: Patient and Family Management Discussion w/another healthcare provider: Object Oriented Developer (Dr. Luzma García) Discharge Plan Triage Chief Complaint: Eye Problem ED Provider: Cali Hutson Dx/Rx/DC Orders Clinical Impression: Sinusitis, Diplopia Prescriptions: New doxycycline monohydrate 100 mg capsule 100 mg PO BID Qty: 20 0RF No Action losartan-hydrochlorothiazide 100-25 mg tablet 1 tab PO DAILY multivitamin Capsule 1 cap PO DAILY cholecalciferol (vitamin D3) 25 mcg (1,000 unit) capsule 25 mcg PO DAILY biotin 1 mg capsule 1 mg PO DAILY fluticasone propionate [Children's Flonase Allergy Rlf] 50 mcg/actuation spray,suspension 1 spray INTRANASAL DAILY PRN (Reason: Congestion) Rx Instructions: administer into each nostril sucralfate [Carafate] 1 gram tablet 1 g PO 4X/DAY ondansetron HCl [Zofran] 4 mg tablet 4 mg PO Q8H PRN (Reason: zofran) omeprazole 40 MG capsule 40 mg PO DAILY bupropion HCl 300 MG tablet extended release 24 hr 300 mg PO DAILY levothyroxine 50 mcg tablet 112 mcg PO DAILY rosuvastatin 20 mg tablet 10 mg PO QHS oxybutynin chloride 5 MG tablet 5 mg PO DAILY dicyclomine 10 MG capsule 10 mg PO PRN PRN (Reason: cramps) metformin 500 mg tablet 500 mg PO BID zinc 50 MG tablet 50 mg PO ascorbic acid (vitamin C) 500 MG capsule 500 mg PO DAILY elderberry fruit and flower 1 EACH capsule 1 ea PO C,E,zinc,copper [id number] 1 EACH capsule 1 ea PO DAILY Neuriva 1 tab PO DAILY cholestyramine (with sugar) 4 gram powder in packet 4 g PO BID Qty: 180 3RF Rx Instructions: administer w/meal; avoid other meds within 1hr before or 4-6hr after dose Primary Care Provider: Anca Valencia Referrals: Anca Valencia MD [Primary Care Provider] - Darya García MD [Med Staff - Active Staff] - (929 APPOINTMENT) Print Language: Wallisian Disposition Disposition: Home, Self Care Discharge Date/Time: 04/04/24 14:10
[2024-04-04 13:05] VITALS: BP 144/84; PULSE 63; RESP 16; O2SAT 93
[2024-04-04 14:00] VITALS: BP 145/85; PULSE 75; RESP 16; O2SAT 96
[2024-04-04 14:08] VITALS: BP 155/80; PULSE 65; RESP 16; TEMP 36.7; O2SAT 96
== END 2024-04-04 14:10 | disposition home or self-care (01) ==
PROVIDERS: Emergency Provider Emergency Medicine; PCP Internal Medicine; Visit Provider Emergency Medicine
DX: J32.9 Chronic sinusitis, unspecified (principal); E11.9 Type 2 diabetes mellitus without complications; H53.2 Diplopia; E78.00 Pure hypercholesterolemia, unspecified; I10 Essential (primary) hypertension; K21.9 Gastro-esophageal reflux disease without esophagitis; Z79.899 Other long term (current) drug therapy
CPT/HCPCS: 70486; 99283

== ENCOUNTER 2025-01-26 01:41 | Emergency (ER) | payer MEDICARE, OTHER, SELFPAY ==
[2025-01-26] VITALS (9 sets, daily range): BP systolic 138–172; BP diastolic 72–99; PULSE 59–78; RESP 16–20; TEMP 36.5–37.1; O2SAT 94–98; BMI 30.9
--- NOTE | 2025-01-26 02:34 | CT_ITS ---
PROCEDURE: ABDOMEN/PELVIS W IV CONT ONLY 01/26/2025 REASON FOR EXAM: EPIG, LUQ PAIN, NAUSEA TECHNIQUE: ABDOMEN/PELVIS W IV CONT ONLY Coronal and Sagittal reconstruction series were provided. CONTRAST: Isovue 370 VOLUME: 88 mL One or more dose reduction techniques were used (e.g., Automated exposure control, adjustment of the mA and/or kV according to patient size, use of iterative reconstruction technique. RADIATION DOSE SUMMARY: CTDlvol: 40 mGy DLP: 1114 mGycm COMPARISON: No FINDINGS: Under aerated lung bases. Normal heart size. Large hiatal hernia. Unremarkable liver. Status post cholecystectomy. There is biliary duct air and debris. CBD is dilated up to 3.2 cm. There is fat stranding and fluid surrounding the common bile duct. There is peripancreatic fat stranding consistent with pancreatitis. Unremarkable, adrenal glands, kidneys. No hydronephrosis or ureteral stone. Normal bladder. Status post hysterectomy. No retroperitoneal or pelvic adenopathy. No free air. Nondistended bowel. Small bowel hypomotility. Diverticulosis. No signs of appendicitis. Lumbar spine scoliosis and degeneration. No acute abdominal wall findings. CT/Abdomen/Pelvis W IV Cont ONLY IMPRESSION: Cholangitis. Consider MRCP. Pancreatitis. [facility]
--- NOTE | 2025-01-26 02:34 | ED.VIS.GI ---
HPI HPI - GI History of Present Illness Chief Complaint: Abd Pain Narrative Narrative: 74-year-old female has been having left upper quadrant abdominal pain and nausea for the last 6 hours or so, started just after eating dinner. Took an oxycodone did not help, took a Zofran, has not tried any other [id number] or home treatments. Pains feels like it is going into her mid back now. She fell about 2 weeks ago and broke her C1 and 2 vertebrae, is being treated nonoperatively and she is in a c-collar. She has had several remote abdominal surgeries nothing recently, including hysterectomy, appendectomy, choledochojejunostomy and cholecystectomy. [facility] Medical History Retrosternal pain Nausea Epigastric pain Constipation Diarrhea GERD (gastroesophageal reflux disease) Asthma Hypertension Diabetes Thyroid disease Hypercholesterolemia History of left breast cancer Nausea Epigastric pain Screening for intestinal cancer Home Medications ?Medication ?Instructions ?Recorded ?Last Taken ?Type bupropion HCl 300 mg 24 hr tablet, 300 mg PO DAILY 06/17/15 Unknown History extended release omeprazole 40 mg capsule,delayed 40 mg PO DAILY 06/17/15 Unknown History release dicyclomine 10 mg capsule 10 mg PO PRN PRN cramps 02/20/18 Unknown History cholecalciferol (vitamin D3) 25 5,000 unit PO DAILY 06/17/20 Unknown History mcg (1,000 unit) capsule fluticasone propionate 50 1 spray intranasal DAILY PRN 06/17/20 Unknown History mcg/actuation nasal Congestion spray,suspension (Children's Flonase Allergy Relief) levothyroxine 50 mcg tablet 112 mcg PO DAILY 06/17/20 Unknown History losartan 100 1 tab PO DAILY 06/17/20 Unknown History mg-hydrochlorothiazide 25 mg tablet metformin 500 mg tablet 500 mg PO BID 06/17/20 Unknown History multivitamin 1 cap PO DAILY 06/17/20 Unknown History ondansetron HCl 4 mg tablet 4 mg PO Q8H PRN zofran 06/17/20 Unknown History (Zofran) rosuvastatin 20 mg tablet 10 mg PO QHS 06/17/20 Unknown History sucralfate 1 gram tablet (Carafate) 1 g PO 4X/DAY 06/17/20 Unknown History vit C,E,copper,zinc-omega3 250 1 ea PO DAILY 07/09/20 Unknown History mg-lutein 5 mg-zeaxanthin 1 mg capsule zinc 50 mg tablet 50 mg PO 07/09/20 Unknown History celecoxib 200 mg capsule 200 mg PO DAILY PRN pain 01/26/25 Unknown History empagliflozin 25 mg tablet 25 mg PO DAILY 01/26/25 Unknown History (Jardiance) mirabegron 25 mg tablet,extended 25 mg PO DAILY 01/26/25 Unknown History release 24 hr (Myrbetriq) Allergy/AdvReac Type Severity Reaction Status Date / Time ciprofloxacin (From Cipro) Allergy Mild Hives Verified 01/26/25 01:42 Penicillins (PCN) Allergy Hives Verified 01/26/25 01:42 Sulfa (Sulfonamide Allergy Hives Verified 01/26/25 01:42 Antibiotics) neomycin AdvReac Hives Verified 01/26/25 01:42 Family History Father Heart disease Mother Cancer Lung cancer Surgical History History of hysterectomy history excision lipoma neck history choledochojejunostomy History of left mastectomy History of bilateral knee replacement History of left salpingo-oophorectomy History of cholecystectomy History of appendectomy Social History Smoking Status: Never smoker alcohol intake: never substance use type: does not use ROS ROS ED Constitutional Constitutional ED: Denies chills or fever(s) Eyes Eyes: Denies change in vision or diplopia ENT ENT ED: Denies rhinorrhea or sore throat Cardiovascular Cardiovascular: Denies chest pain or palpitations Respiratory/Chest Respiratory/Chest: Denies cough or dyspnea Gastrointestinal Gastrointestinal: Reports abdominal pain and nausea; Denies diarrhea, hematemesis, hematochezia, melena or vomiting Genitourinary Genitourinary ED: Denies dysuria or hematuria Musculoskeletal Musculoskeletal: Reports back pain; Denies neck pain Integumentary Denies abscess or rash Neurologic Neurologic: Denies headache(s), paresthesias or weakness Psychiatric Psychiatric: Denies anxiety or suicidal thoughts EXAM Physical Exam Const Vital Signs: 01/26/25 01:41 01/26/25 03:41 01/26/25 04:31 Temperature 97.7 F L 98.3 F Temperature Source Oral Oral Pulse Rate 59 L 69 76 Respiratory Rate 18 18 16 Blood Pressure 155/72 H 172/77 H 145/88 H Blood Pressure Mean 99 108 107 Pulse Ox 98 97 95 Oxygen Delivery Method Room Air Room Air Room Air 01/26/25 05:00 01/26/25 05:31 Temperature 98.2 F Temperature Source Oral Pulse Rate 71 69 Respiratory Rate 18 18 Blood Pressure 150/99 H 142/76 H Blood Pressure Mean 116 98 Pulse Ox 94 98 Oxygen Delivery Method Room Air Room Air Positive well nourished and well developed General Appearance ED: well developed and NAD HEENT Reports moist mucous membranes HEENT Narrative: Old bruising in face normocephalic and atraumatic Eyes PERRL and EOMs intact bilaterally Neck Neck Narrative: Immobilized in cervical collar Resp normal respiratory effort and clear to auscultation bilaterally Cardio regular rate, regular rhythm and no murmurs GI non-distended GI Narrative: Tender epigastrium and left upper quadrant without guarding or rebound, no evidence of pulsatile mass. Auscultation: normoactive bowel sounds Palpation: soft Back/Spine no CVA tenderness General Back: other FROM Extremity normal to inspection General Extremety ED: Negative for edema, pulses abnormal or tenderness General Extremity: Negative for edema or pulses abnormal Neuro oriented x3, CN's II-XII intact bilaterally and no sensory deficits noted Sensorium / Orientation: awake and alert Motor Exam: strength 5/5 throughout Psych mental status grossly normal and thought process normal Skin no rashes or lesions noted and no wounds MDM MDM MDM Narrative Medical decision making narrative: Patient complaining of left upper quadrant pain but also tender in epigastrium same goes into her back. She states she has had prior cholecystectomy and choledochojejunostomy. I treated her with a GI cocktail to see if that would help with possible intraluminal discomfort, which it did not. We sent labs as well as obtaining a CT of the abdomen/pelvis, I reviewed the images and the report which I agree with. It is consistent with acute pancreatitis as it is her extremely elevated lipase, and although her liver enzymes at this time are normal except for just barely elevated alkaline phosphatase, the CT is concerning for acute cholangitis. Morphine and empiric cefepime provided. Patient is clinically hemodynamically stable. In talking more with her and her , patient had choledochojejunostomy here at this hospital by Drs. Escobar and Tima because of bile reflux and the history of still producing stones despite cholecystectomy. 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 She is probably going to need an MRCP and GI consultation; GI is not available to discuss with at this hour but will be available in the morning. I discussed with our hospitalist but he recommends transfer to higher level of care especially since the patient has a relatively recent neck fracture and will not be able to be out of cervical stabilization making her higher risk if she needs ERCP. With regards to the patient's choledochojejunostomy, it was performed in 1993. I reviewed operative notes at this hospital but was unable to find any regarding the specifics of her biliary anatomy; the was under the impression that the pancreatic duct was from the common bile duct. She recently was at [facility] for her traumatic neck injury. They prefer to go back there if they have an available bed so I called for transfer. Excepted after discussing with Dr. Thomas. Will continue to support the patient here with IV fluids and symptom control as needed. Lab Data Attestation: I reviewed the patient's lab results. Labs: Laboratory Results - last 24 hr 01/26/25 01:50 WBC 9.9 RBC 4.99 Hgb 14.1 Hct 43.4 MCV 87.0 MCH 28.3 MCHC 32.5 RDW Std Deviation 40.9 RDW Coeff of Barbara 12.9 Plt Count 293 MPV 9.6 Immature Gran % (Auto) 0.200 Neut % (Auto) 80.6 H Lymph % (Auto) 13.8 L Giles % (Auto) 3.9 Eos % (Auto) 0.9 Baso % (Auto) 0.6 Absolute Neuts (auto) 8.0 H Absolute Lymphs (auto) 1.37 Nucleated RBC % 0 Sodium 138 Potassium 4.0 Chloride 100 Carbon Dioxide 24.7 Anion Gap 14 BUN 20 H Creatinine 0.62 L Estim Creat Clear Calc 59.61 Est GFR (MDRD) Non-Af 92 BUN/Creatinine Ratio 33.0 H Glucose 212 H Calcium 9.6 Total Bilirubin 0.36 AST 22 ALT 23 Alkaline Phosphatase 111 H Total Protein 6.7 Albumin 4.2 Globulin 2.5 Albumin/Globulin Ratio 1.7 Lipase > 3000 H Radiography Diagnostic Testing: Clinical Impression(s) from Imaging Studies Abdomen/Pelvis CT 01/26/25 02:34 IMPRESSION: Cholangitis. Consider MRCP. Pancreatitis. Reading Location: [place] [id number] Management Discussion w/another healthcare provider: Hospitalist and Other (Dr. Thomas, [facility]) Discharge Plan Triage Chief Complaint: Abd Pain ED Provider: Kaushik Kolb Dx/Rx/DC Orders Clinical Impression: Acute biliary pancreatitis, Acute cholangitis, Cervical vertebral fracture Prescriptions: No Action losartan-hydrochlorothiazide 100-25 mg tablet 1 tab PO DAILY multivitamin Capsule 1 cap PO DAILY cholecalciferol (vitamin D3) 25 mcg (1,000 unit) capsule 5,000 unit PO DAILY fluticasone propionate [Children's Flonase Allergy Rlf] 50 mcg/actuation spray,suspension 1 spray INTRANASAL DAILY PRN (Reason: Congestion) Rx Instructions: administer into each nostril sucralfate [Carafate] 1 gram tablet 1 g PO 4X/DAY ondansetron HCl [Zofran] 4 mg tablet 4 mg PO Q8H PRN (Reason: zofran) omeprazole 40 MG capsule 40 mg PO DAILY bupropion HCl 300 MG tablet extended release 24 hr 300 mg PO DAILY levothyroxine 50 mcg tablet 112 mcg PO DAILY rosuvastatin 20 mg tablet 10 mg PO QHS dicyclomine 10 MG capsule 10 mg PO PRN PRN (Reason: cramps) metformin 500 mg tablet 500 mg PO BID zinc 50 MG tablet 50 mg PO C,E,copper,zinc [id number] 1 EACH capsule 1 ea PO DAILY mirabegron [Myrbetriq] 25 mg tablet extended release 24 hr 25 mg PO DAILY Jardiance 25 mg tablet 25 mg PO DAILY celecoxib 200 mg capsule 200 mg PO DAILY PRN (Reason: pain) Primary Care Provider: Anca Valencia Referrals: Anca Valencia MD [Primary Care Provider] - Print Language: Scottish Disposition Disposition: Acute Care Hospital Discharge Location: [facility]
--- OUTSIDE RECORDS SUMMARY | 2025-01-26 02:38 | XMS RPT_ITS | CCD ---
Author Organization [facility] Care Team Providers Care Test Preparer Name Role Phone Fifi Green MD Primary Care Provider Annie Fifi D Primary Care Unavailable Jabour, Vincent Referring Unavailable JabourJj Attending Unavailable Dianampophelia, Fifi D Primary Care Unavailable Jabour, Vincent Referring Unavailable Jj Mcguire Attending Unavailable Talampophelia, Fifi D Primary Care Unavailable Cali Hutson Attending Unavailable Consuelo Hilario Attending Unavailable Dianampophelia, Fifi D Primary Care Unavailable Consuelo Hilario Referring Unavailable DianampFifi jacinto MD Primary Care Provider Hall FIRE CONTROL MECHANIC.MARKETING PLANNER, Duglas Unavailable Johana FIRE CONTROL MECHANIC.TRAUMA COORDINATOR, Augusto Unavailable Johana FIRE CONTROL MECHANIC.TRAUMA COORDINATOR, Augusto Unavailable Johana FIRE CONTROL MECHANIC.TRAUMA COORDINATOR, Augusto Unavailable Johana FIRE CONTROL MECHANIC.TRAUMA COORDINATOR, Augusto Unavailable TALAMPAS, FIFI Referring Unavailable WALL, XUAN B Attending Unavailable TALAMPAS, FIFI Primary Care Unavailable TALAMPAS, FIFI Referring Unavailable WALL, XUAN B Attending Unavailable TALAMPAS, FIFI Primary Care Unavailable TALAMPAS, FIFI Referring Unavailable WALL, XUAN B Attending Unavailable TALAMPAS, FIFI Primary Care Unavailable TALAMPAS, FIFI Primary Care Unavailable WALL, XUAN B Attending Unavailable TALAMPAS, FIFI Referring Unavailable Hall FIRE CONTROL MECHANIC.MARKETING PLANNER, Duglas Unavailable Dianampophelia, Fifi D Primary Care Provider TALAMPOPHELIA, FIFI D Primary Care Unavailable TALAMPAS, FIFI D Referring Unavailable TALAMPAS, FIFI D Primary Care Unavailable MICHAEL TARIQ Attending Unavailable MICHAEL TARIQ Referring Unavailable TALAMPAS, FIFI D Primary Care Unavailable TARIQMICHAEL Attending Unavailable TALAMPAS, FIFI D Primary Care Unavailable TALAMPAS, FIFI D Primary Care Unavailable TALAMPAS, FIFI D Referring Unavailable TALAMPAS, FIFI D Primary Care Unavailable TALAMPAS, FIFI D Attending Unavailable MICHAEL TARIQ Attending Unavailable TALAMPAS, FIFI D Primary Care Unavailable TALAMPAS, FIFI D Referring Unavailable TALAMPAS, FIFI D Primary Care Unavailable TALAMPAS, FIFI D Referring Unavailable DUGLAS HALL Referring Unavailable TALAMPAS, FIFI D Primary Care Unavailable TALAMPAS, FIFI D Attending Unavailable TALAMPAS, FIFI D Primary Care Unavailable TALAMPAS, FIFI D Referring Unavailable AUGUSTO BLAND Attending Unavailable TALAMPAS, FIFI D Primary Care Unavailable TALAMPAS, FIFI D Primary Care Unavailable MICHAEL TARIQ Attending Unavailable TALAMPAS, FIFI D Primary Care Unavailable TALAMPAS, FIFI D Attending Unavailable ANIYA DE LEON Attending Unavailable ANIYA DE LEON Admitting Unavailable MEGHNA SAAVEDRA Attending Unavailable MEGHNA SAAVEDRA Primary Care Unavailable MEGHNA SAAVEDRA Admitting Unavailable FIFI GREEN MD Consulting Unavailable PROVIDER, UNKNOWN Consulting Unavailable FIFI GREEN MD Consulting Unavailable JOLYNN STOKES MD Primary Care Unavailable JOLYNN STOKES MD Admitting Unavailable MEGHNA SAAVEDRA Referring Unavailable JOLYNN STOKES MD Attending Unavailable PROVIDER, UNKNOWN Consulting Unavailable FIFI GREEN MD Consulting Unavailable MEGHNA SAAVEDRA Attending Unavailable MEGHNA SAAVEDRA Primary Care Unavailable MEGHNA SAAVEDRA Admitting Unavailable PROVIDER, UNKNOWN Consulting Unavailable FIFI GREEN MD Consulting Unavailable JOLYNN STOKES MD Primary Care Unavailable JOLYNN STOKES MD Admitting Unavailable FIFI GREEN MD Referring Unavailable JOLYNN STOKES MD Attending Unavailable PROVIDER, UNKNOWN Consulting Unavailable FIFI GREEN MD Consulting Unavailable FIFI GREEN MD Referring Unavailable MERCY ROSSI DO Attending Unavailable MERCY ROSSI DO Primary Care Unavailable MERCY ROSSI DO Admitting Unavailable PROVIDER, UNKNOWN Consulting Unavailable TALAMPAS, FIFI, Primary Care Unavailable HENNY MCKEE Attending Unavailable TALAMPAS, FIFI, Primary Care Unavailable JORGITO CALI Attending Unavailable MERCY ROSSI Referring Unavailable JAYLEN HERRERA Consulting Unavailable SKINNY CAREY Admitting Unavailable SKINNY CAREY Attending Unavailable FIFI GREEN, Primary Care Unavailable Allergies Allergy Classification Reported Allergen(s) Allergy Type Date of Onset Reaction(s) Facility Aspirin (1 source) Aspirin Drug Allergy 3 [facility] HMG-CoA Reductase Inhibitors (statins) (1 source) Simvastatin Drug Allergy 6 [facility] metFORMIN (1 source) metFORMIN Drug Allergy 0 GI Upset [facility] Penicillins (antibiotic) (1 source) Penicillins Drug Allergy 3 Unknown [facility] Quinolones (antibiotic) (1 source) Ciprofloxacin Drug Allergy 0 [facility] Sulfonamides (antibiotic) (1 source) Sulfonamides (Antibiotic) Drug Allergy 3 [facility] (20 sources) Aspirin; Translations: [ASPIRIN] Drug Allergy 3 [facility] (20 sources) Ciprofloxacin; Translations: [CIPROFLOXACIN] Drug Allergy 0 [facility], [facility] Work Phone: (20 sources) metFORMIN; Translations: [METFORMIN] Drug Allergy 0 GI Upset [facility] (5 sources) Penicillins; Translations: [PENICILLINS] Propensity to adverse reactions 3 [facility] (20 sources) Simvastatin; Translations: [SIMVASTATIN] Drug Allergy 6 [facility] Work Phone: (20 sources) Sulfonamides (Antibiotic); Translations: [SULFA (SULFONAMIDE ANTIBIOTICS)] Propensity to adverse reactions 3 Unknown, [facility] (20 sources) Penicillins Propensity to adverse reactions 3 [facility] (2 sources) Penicillins Allergy to substance 1 [facility] (2 sources) Sulfonamides (Antibiotic) Allergy to substance 1 [facility] (1 source) Ciprofloxacin Drug Allergy 4 [facility] (1 source) Penicillins Drug allergy (disorder) 4 [facility] (1 source) Sulfonamides (Antibiotic) Drug allergy (disorder) 4 [facility] (6 sources) Penicillins Drug Allergy 3 Unknown [facility] (1 source) Neomycin; Translations: [NEOMYCIN] Drug Allergy 5 [facility] Rep[facility] (1 source) Sulfacetamide; Translations: [SULFACETAMIDE] Drug Allergy 5 [facility] (1 source) PSEUDOEPHEDRINE-A CETAMINOPHEN; Translations: [PSEUDOEPHEDRINE- ACETAMINOPHEN] Propensity to adverse reactions to drug (disorder) 5 [facility] Rep[facility] (4 sources) levothyroxine Drug Allergy 5 [facility] (4 sources) Penicillins Propensity to adverse reactions 5 Hives [facility] (4 sources) Neomycin-Polymyxi n-Dexameth Propensity to adverse reactions 5 Swelling [facility] (1 source) Ciprofloxacin Drug Allergy [facility] (1 source) Penicillins Drug allergy (disorder) [facility] (1 source) Sulfonamides (Antibiotic) Drug allergy (disorder) [facility] Repository Medications Current Medications Medication Drug Class(es) Dates Sig (Normalized) Sig (Original) acetaminophen 500 mg oral tablet (20 sources) Start: 01-14-2025 End: 01-24-2025 take 2 tablets by mouth every eight hours in the evening acetaminophen (Tylenol) 500 MG tablet Take 2 tablets (1,000 mg) by mouth every 8 hours for 10 days. 30 tablet 01/14/2025 3:15 PM EDT 01/14/2025 01/24/2025 Active Start: 01-14-2025 End: 01-14-2025 1,000 mg, Oral, Every 8 hour s scheduled (3 times per day), First dose on Sun01/14/25 at 1400, If inadequate response within 60 minutes, proceed to next-line agent for same PRN reason or contact provider if no further options ordered. Start: 01-14-2025 End: 01-14-2025 1,000 mg, IntraVENous, at 40 0 mL/hr, Administer over 15 Minutes, Every 6 hours scheduled (4 times per day), First dose on Sun01/14/25 at 0000 take 1 tablet by aaron th every six hours as needed acetaminophen 500 mg tablet Take 500 mg by mouth every 6 hours as needed. Active Comment on above: Take 500 mg by mouth every 6 hours as needed. ascorbic acid 500 mg oral capsule (2 sources) Vitamin C Start: 07-09-2020 take 500 mg by mouth once daily Ascorbic Acid (Vitamin C) Active 500 MG PO DAILY July 09, 2020 1:00am ascorbic acid 60 mg / cuprous oxide 2 mg / dl-alpha tocopheryl acetate 30 mg / lutein 6 mg / zinc oxide 15 mg oral capsule (4 sources) Vitamin C take 1 capsule by mouth once daily eye vitamin supplement (Ocuvite Eye Health Formula) capsule Take 1 capsule by mouth daily. Active bacitracin 0.5 unt/mg topical ointment (6 sources) Start: 01-14-2025 End: 01-24-2025 bacitracin 500 UNIT/GM ointment Apply topically 2 times daily for 10 days. 28.4 g 01/14/2025 3:15 PM EDT 01/14/2025 01/24/2025 Active Start: 01-14-2025 End: 01-14-2025 apply 1 dose topically three times daily Topical, 3 times daily, First dose on Sun01/14/25 at 0000, Nasal laceration benzonatate 100 mg oral capsule (20 sources) Non-narcotic Antitussive Start: 12-25-2023 End: 01-23-2024 take 1-2 capsules by mouth three times daily as needed benzonatate (TESSALON PERLES) 100 mg capsule Indications: Subacute pansinusitis Take 1-2 capsules by mouth three times a day as needed. 60 capsule 1 01/23/2024 Active beta-carotene,A,-vi ts C,E/mins (OCUVITE ORAL) (20 sources) take 1 capsule by mouth once daily beta-carotene,A,- vits C,E/mins (OCUVITE ORAL) Take 1 capsule by mouth once daily. Active betamethasone 0.5 mg/ml / clotrimazole 10 mg/ml topical cream (1 source) Azole Antifungal, Corticosteroid Start: 07-21-2022 End: 08-04-2022 clotrimazole-beta methasone (LOTRISONE) cream Apply to affected area twice daily for 14 days. May repeat as needed. For rash 15 g 1 07/21/2022 08/04/2022 Active Comment on above: Apply to affected ar ea twice daily for 14 days. May repeat as needed. For rash biotin 1 mg oral capsule (2 sources) Start: 06-17-2020 take 1 mg by mouth once daily Biotin Active 1 MG PO DAILY June 17, 2020 1:00am Blood-Glucose Meter (1 source) Start: 03-25-2024 End: 03-26-2024 Blood-Glucose Meter Test One time a day. Insulin Dep? No E11.65 1 Each 03/25/2024 03/26/2024 Active Blood-Glucose Meter,Continuous (FREESTYLE KISHAN 3 READER) misc (5 sources) Start: 09-26-2024 Blood-Glucose Meter,Continuous (FREESTYLE KISHAN 3 READER) misc Use to check blood sugar at least four (4) times daily. 1 Each 09/26/2024 Active Blood-Glucose Sensor (FREESTYLE KISHAN 3 PLUS SENSOR) layla (5 sources) Start: 09-26-2024 Blood-Glucose Sensor (FREESTYLE KISHAN 3 PLUS SENSOR) layla Apply new sensor every fifteen (15) days to upper arm. 6 Each 4 09/26/2024 Active C,E,Zinc,Copper [id number] (2 sources) Start: 07-09-2020 C,E,Zinc,Copper 65-[id number] Active 1 EACH PO DAILY July 09, 2020 1:00am cefdinir 300 mg oral capsule (1 source) Cephalosporin Antibacterial Start: 01-23-2024 End: 02-06-2024 take 1 capsule by mouth twice daily cefdinir (OMNICEF) 300 mg capsule Indications: Subacute pansinusitis Take 1 capsule by mouth two times a day for 14 days. 28 capsule 0 01/23/2024 02/06/2024 Active celecoxib 200 mg oral capsule (20 sources) Nonsteroidal Anti-inflammatory Drug Start: 03-13-2023 End: 01-14-2025 take 1 capsule by mouth every twenty-four hours as needed celecoxib (CeleBREX) 200 MG capsule Take 200 mg by mouth Daily as needed. Takes as needed (ordered daily initially) 12/22/2024 Active Start: 01-18-2021 End: 09-06-2022 take 1 tablet by mouth once daily at mealtime celecoxib (CELEBREX) 200 mg capsule Indications: Fibromyalgia , Osteoarthritis of cervical spine, unspecified spinal osteoarthritis complication status TAKE 1 TABLET BY MOUTH ONCE A DAY WITH FOOD 30 capsule 03/07/2022 Active Comment on above: TAKE 1 TABLET BY AARON ONCE A DAY WITH FOOD cetirizine hydrochloride 10 mg oral tablet (20 sources) Histamine-1 Receptor Antagonist take 1 tablet by mouth once daily cetirizine (ZYRTEC) 10 mg tablet Take 10 mg by mouth once daily. Active Comment on above: Take 10 mg by mouth once daily. cholecalciferol 0.025 mg oral capsule (20 sources) Vitamin D Start: 06-17-20 take 25 ug by mouth once daily Cholecalciferol (Vitamin D3) Active 25 MCG PO DAILY June 17, 2020 1:00am Start: 06-04-2017 take 1 capsule by [facility] once daily Cholecalciferol, Vitamin D3, (VITAMIN D) 1,000 unit cap Take 1 capsule by mouth once daily. 06/04/2017 Active take 1 tablet by [facility] once daily cholecalciferol (Vitamin D-3) 25 MCG (1000 UT) tablet Take 1 tablet by mouth daily. Active Comment on above: Take 1 capsule by [facility] once daily. cholestyramine resin 4000 mg powder for oral suspension (20 sources) Bile Acid Sequestrant Start: 07-16-19 take 1 dose by mouth twice daily Cholestyramine (With Sugar) Active 4 GM PO TWICE A DAY July 16, 2020 1:00am administer w/meal; avoid other meds within 1hr before or 4-6hr after dose Start: 09-03-2015 End: 03-25-2024 take 1 dose by mouth three times daily at mealtime cholestyramine (QUESTRAN) 4 gram packet Take 1 Packet by mouth three times daily with meals. 90 Packet 3 09/03/2015 03/25/2024 Discontinued (Lack of Efficacy) Comment on above: Take 1 Packet by [facility] three times daily with meals. doxycycline hyclate 100 mg oral tablet (3 sources) Tetracycline-cla ss Drug Start: 04-18-2024 End: 04-28-2024 take 1 tablet by mouth twice daily doxycycline (VIBRA-TABS) 100 mg tablet Take 1 tablet by mouth two times a day for 10 days. 20 tablet 04/18/2024 04/28/2024 Active Start: 12-25-2023 End: 01-01-2024 take 1 tablet by mouth twice daily doxycycline (VIBRA-TABS) 100 mg tablet Indications: Sinobronchitis , Vertigo Take 1 tablet by mouth two times a day for 7 days. 14 tablet 12/25/2023 01/01/2024 Elderberry Fruit And Flower (2 sources) Start: 07-09-2020 Elderberry Fruit And Flower Active 1 EACH PO July 09, 2020 1:00am empagliflozin 25 mg oral tablet (20 sources) Sodium-Glucose Cotransporter 2 Inhibitor Start: 06-27-2024 End: 09-26-2024 take 1 tablet by mouth once daily at breakfast empagliflozin (JARDIANCE) 25 mg tablet Indications: Type 2 diabetes mellitus with hyperglycemia, without long-term current use of insulin (HCC) Take 1 tablet by mouth daily with breakfast. 30 tablet 11 09/26/2024 Active Start: 03-25-2024 End: 06-27-2024 take 1 tablet by mouth once daily, then take 1 tablet by mouth once daily in the morning empagliflozin (JARDIANCE) 10 mg tablet Indications: Type 2 diabetes mellitus with hyperglycemia, without long-term current use of insulin (HCC) Take 1 tablet by mouth once daily. Take 1 tablet once daily in the morning 30 tablet 1 03/25/2024 06/27/2024 Discontinued fluconazole 150 mg oral tablet (1 source) Azole Antifungal Start: 01-23-2024 End: 01-23-2024 fluconazole (DIFLUCAN) 150 mg tablet Indications: Subacute pansinusitis Take 1 tablet by mouth one time only for 1 dose. Repeat in 3 days as needed. 2 tablet 0 01/23/2024 01/23/2024 Active fluticasone propionate 0.05 mg/actuat metered dose nasal spray (20 sources) Corticosteroid Start: 07-18-2024 End: 09-26-2024 take 2 spray(s) nasal route once daily fluticasone (FLONASE) 50 mcg/actuation nasal spray Use 2 Sprays in each nostril once daily. 48 g 3 07/18/2024 09/26/2024 Discontinued Start: 08-05-2021 End: 09-26-2024 take 2 spray(s) nasal route once daily fluticasone (FLONASE) 50 mcg/actuation nasal spray Use 2 Sprays in each nostril once daily. 09/26/2024 Active Start: 06-17-2020 take 1 spray(s) nasa l route once daily Fluticasone Propionate (Children's Flonase Allergy Rlf) 50 mcg/actuation spray,suspension Active 1 SPRAY INTRANASAL DAILY June 17, 2020 1:00am administer into each nostril Comment on above: Use 2 Sprays in each nostril once daily. As directed hydroCHLOROthiazide 25 mg / losartan potassium 100 mg oral tablet (20 sources) Thiazide Diuretic, Angiotensin 2 Receptor Zaida Start: 022 End: 024 take 1 tablet by mouth once daily losartan-hydroCHLOR Othiazide (HYZAAR) 100-25 mg per tablet Indications: Primary hypertension Take 1 tablet by mouth once daily. 90 tablet 3 03/25/2024 Active Start: 06-17-2020 take 1 tablet by aaron th once daily Losartan-Hydrochlorothiazide Active 1 TA BLET PO DAILY June 17, 2020 1:00am Start: 06-17-2015 End: 06-17-2020 take 1 tablet by mouth once daily Losartan-Hydrochlorothiazide Discontinue d 1 TABLET PO DAILY June 17, 2015 1:00am June 17, 2020 10:24am Comment on above: Take 1 tablet by aaron th once daily. hyoscyamine sulfate 0.125 mg oral tablet (20 sources) Start: 4 take 1 tablet by mouth every six hours as needed hyoscyamine (LEVSIN) 0.125 mg tablet Take 0.125 mg by mouth every 6 hours as needed. 10/02/2023 Active levothyroxine sodium 0.112 mg oral tablet (20 sources) l-Thyroxine Start: 2 End: 5 take 1 tablet by mouth once daily levothyroxine (Synthroid, Levoxyl) 112 MCG tablet Take 112 mcg by mouth daily. 03/25/2024 Active Start: 06-17-2020 take 112 ug by mouth once daily Levothyroxine Active 112 MCG PO DAILY June 17, 2020 10:22am Start: 06-17-2015 End: 06-17-2020 take 50 ug by mouth once daily Levothyroxine Discontin ued 50 MCG PO DAILY June 17, 2015 1:00am June 17, 2020 10:28am Comment on above: Take 1 tablet by aaron once daily. Take on empty stomach. For thyroid meclizine hydrochloride 25 mg oral tablet (20 sources) Antiemetic Start: 4 take 1 tablet by mouth every six hours as needed for dizziness meclizine (ANTIVERT) 25 mg tab TAKE ONE TABLET BY MOUTH EVERY 6 HOURS NEEDED FOR DIZZINESS 12/12/2023 Active 24 hr metFORMIN hydrochloride 500 mg extended release oral tablet (20 sources) Biguanide Start: 2 End: 5 metFORMIN ER (GLUCOPHAGE XR) 500 mg 24 hr tablet Indications: Type 2 diabetes mellitus without complication, without long-term current use of insulin (HCC) Taking total of 4 pills per day but in divided doses 120 tablet 11 07/11/2024 Active Start: 06-17-2020 take 500 mg by mouth twice daily Metformin Active 500 MG PO TWICE A DAY June 17, 2020 10:24am Start: 02-20-2018 End: 06-17-2020 take 500 mg by mouth once daily Metformin Discontinued 500 MG PO DAILY February 20, 2018 12:00am June 17, 2020 10:28am metFORMIN, OSM, (Fortamet) 500 MG 24 hr tablet Take 1,000 mg by mouth 2 times daily (with meals). Do not crush, chew, or split. Active Comment on above: Taking total of 4 pi lls per day but in divided doses methocarbamol 500 mg oral tablet (7 sources) Muscle Relaxant Start: 5 End: 5 take 1 tablet by mouth every eight hours as needed methocarbamol (Robaxin) 500 MG tablet Take 1 tablet (500 mg) by mouth every 8 hours as needed for muscle spasms for up to 10 days. 30 tablet 01/21/2025 01/31/2025 Active Start: 01-14-2025 End: 01-14-2025 take 1 dose by mouth three times daily 500 mg, Oral, Every 8 hours scheduled (3 times per day), First dose on Sun01/14/25 at 1400 24 hr mirabegron 25 mg extended release oral tablet (20 sources) beta3-Adrenergic Agonist Start: 09-18-2023 End: 09-26-2024 take 1 tablet by mouth once daily mirabegron (MYRBETRIQ) 25 mg Tb24 Indications: Urge incontinence of urine Take 1 tablet by mouth once daily. 30 tablet 11 09/26/2024 Active Comment on above: Take 1 tablet by aaron th once daily. montelukast 10 mg oral tablet (20 sources) Leukotriene Receptor Antagonist Start: 10-27-2020 End: 03-23-2023 take 1 tablet by mouth once daily at bedtime montelukast (SINGULAIR) 10 mg tablet Indications: Mild intermittent asthma without complication (HCC) Take 1 tablet by mouth daily at bedtime. 30 tablet 11 03/23/2023 Active Comment on above: Take 1 tablet by aaron th daily at bedtime. Multivitamin preparation (2 sources) Start: 06-17-2020 take 1 capsule by mouth once daily multivitamin Active 1 CAP PO DAILY June 17, 2020 1:00am multivitamin tablet (20 sources) Start: 06-04-2017 take 1 tablet by mouth once daily multivitamin tablet Take 1 tablet by mouth once daily. 06/04/2017 Active Start: 06-04-2017 take 1 tablet by aaron th once daily multivitamin tablet Take 1 tablet by mouth once daily. 0 06/04/2017 Active Comment on above: Take 1 tablet by aaron th once daily. Neuriva (2 sources) Start: 1 take 1 tablet by mouth once daily Neuriva Active 1 TABLET PO DAILY July 09, 2020 1:00am omeprazole 40 mg delayed release oral capsule (20 sources) Proton Pump Inhibitor Start: 5 End: 5 take 1 capsule by mouth once daily omeprazole (PRILOSEC) 40 mg capsule Indications: Gastroesophageal reflux disease, unspecified whether esophagitis present Take 1 capsule by mouth once daily. 30 capsule 07/11/2024 Active take 40 mg by mouth once OMEPRAZ OLE PO Take 40 mg by mouth Once. Active Comment on above: Take 1 capsule by mo [facility] once daily. ondansetron 4 mg disintegrating oral tablet (20 sources) Serotonin-3 Receptor Antagonist Start: 01-15-20 End: 01-22-20 take 1 tablet by mouth every eight hours as needed for nausea ondansetron ODT (Zofran-ODT) 4 MG disintegrating tablet Indications: Acute traumatic injury of cervical spine (HCC) , Closed fracture of nasal bone, initial encounter , Closed nondisplaced fracture of second cervical vertebra, unspecified fracture morphology, initial encounter ([facility]) , Closed nondisplaced fracture of first cervical vertebra, unspecified fracture morphology, initial encounter ([facility]) , Laceration of nose, initial encounter , Acute pain due to trauma Take 1 tablet (4 mg) by mouth every 8 hours as needed for nausea or vomiting for up to 7 days. 20 tablet 01/14/2025 3:15 PM EDT 01/14/2025 01/21/2025 Active Start: 08-05-2021 End: 03-25-2024 take 1 tablet by mouth every eight hours as needed for nausea and nausea ondansetron orally disintegrating (ZOFRAN ODT) 4 mg disintegrating tablet Indications: Nausea Take 1 tablet by mouth every 8 hours as needed for nausea/vomiting. 42 tablet 03/25/2024 Active Start: 06-17-2020 take 1 tablet by aaron th every eight hours Ondansetron Hcl (Zofran) 4 mg tablet Active 4 MG PO Q8H June 17, 2020 1:00am Comment on above: Take 1 tablet by aaron th every 8 hours as needed for nausea/vomiting. oxyCODONE hydrochloride 5 mg oral tablet (5 sources) Opioid Agonist Start: 01-15-20 End: 01-22-20 take 1 tablet by mouth every six hours as needed for pain oxyCODONE (Roxicodone) 5 MG immediate release tablet Indications: Acute traumatic injury of cervical spine (HCC) , Closed fracture of nasal bone, initial encounter , Closed nondisplaced fracture of second cervical vertebra, unspecified fracture morphology, initial encounter ([facility]) , Closed nondisplaced fracture of first cervical vertebra, unspecified fracture morphology, initial encounter ([facility]) , Laceration of nose, initial encounter , Acute pain due to trauma Take 1 tablet (5 mg) by mouth every 6 hours as needed for moderate pain (4-6) for up to 5 days. 20 tablet 01/14/2025 3:15 PM EDT 01/14/2025 01/21/2025 Active Start: 01-14-2025 End: 01-14-2025 take 1 tablet by mouth every four hours as needed for pain oxyCODONE (Roxicodone) immediate release tablet 5 mg phenazopyridine hydrochloride 200 mg oral tablet (20 sources) Start: 10-27-2020 End: 03-23-2023 take 1 tablet by mouth every eight hours as needed phenazopyridine (PYRIDIUM) 200 mg tablet Take 1 tablet by mouth three times daily as needed. 9 tablet 11 03/23/2023 Active Comment on above: Take 1 tablet by aaron th three times daily as needed. polyethylene glycol 3350 [id number] mg powder for oral solution (6 sources) Osmotic Laxative Start: 01-14-2025 End: 01-22-2025 take 17 g by mouth every twenty-four hours as needed polyethylene glycol, PEG, 3350 (MiraLax) 17 GM/SCOOP powder Mix 1 capful (17 g) in 6-8 ounce of liquid and drink once daily as needed (constipation) for up to 5 days. 119 g 01/14/2025 3:15 PM EDT 01/14/2025 01/22/2025 Active Start: 01-14-2025 End: 01-14-2025 take 1 dose by mouth every twenty-four hours for constipation 17 g, Oral, Daily, First dose on Sun01/14/25 at 0600, 1st line for treatment of constipation - give scheduled if no bowel movement in past 24 hours. predniSONE 5 mg oral tablet (20 sources) Start: 06-27-2024 take 1 tablet by mouth every twelve hours as needed predniSONE (DELTASONE) 5 mg tablet Take 1 tablet by mouth two times a day as needed. 14 tablet 06/27/2024 Active Start: 01-23-2024 End: 03-25-2024 predniSONE (DELTASONE) 20 mg tablet Indications: Subacute pansinusitis 1 tablet three times a day for 3 days, then 2 times a day for 3 days, the one daily for 3 days. 18 tablet 01/23/2024 03/25/2024 Discontinued (Course of therapy completed) Start: 12-25-2023 End: 12-29-2023 take 1 tablet by mouth once daily at mealtime predniSONE (DELTASONE) 20 mg tablet Indications: Sinobronchitis , Vertigo Take 1 tablet by mouth once daily for 4 days. Take with food 4 tablet 12/25/2023 12/29/2023 72 hr scopolamine 0.0139 mg/hr transdermal system (20 sources) Anticholinergic Start: 03-07-2022 End: 03-25-2024 scopolamine (TRANSDERM-SCOP) patch 1.5 mg/72 hr (delivers 1 mg over 3 days) Apply 1 Patch as directed every 72 hours. Apply patch to skin behind ear 4hrs prior to travel. 4 Patch 1 03/25/2024 Active Comment on above: Apply 1 Patch as dir ected every 72 hours. Apply patch to skin behind ear 4hrs prior to travel. Tobramycin (19 sources) Aminoglycoside Antibacterial Start: 06-23-2024 tobramycin 20 mg (CP D) Use 1 Each in the nose two times a day. Comments for compounding pharmacy: tobramycin 20mg - into 8oz saline. Perform irrigations twice daily 60 Each 3 06/23/2024 Active Zinc (2 sources) Start: 07-09-2020 Zinc Active 50 MG PO July 09, 2020 1:00am Completed/Discontinued Medications Medication Drug Class(es) Dates Sig (Normalized) Sig (Original) acetaminophen 300 mg / codeine phosphate 30 mg oral tablet (2 sources) Opioid Agonist Start: 06-27-2024 End: 07-04-2024 take 1 tablet by mouth twice daily as needed acetaminophen-codein e (TYLENOL-COD #3) 300-30 mg per tablet Indications: Fibromyalgia Take 1 tablet by mouth two times a day as needed (fibromyalgia flare up) for up to 7 days. 14 tablet 06/27/2024 07/04/2024 albuterol 0.83 mg/ml inhalation solution (20 sources) beta2-Adrenergic Agonist Start: 01-13-2025 End: 01-14-2025 2.5 mg, Nebulization, Every 2 hour PRN, wheezing, Starting on Sun01/13/25 at 2341, Initiate RT Bronchodilator Protocol: Start: 01-23-2024 albuterol (PRO VENTIL) 2.5 mg /3 mL (0.083 %) nebulizer solution Indications: Subacute pansinusitis Use 3 mL via nebulizer every 4 hours as needed for wheezing/shortness of breath. 150 mL 3 01/23/2024 Active Start: 04-02-2023 End: 06-25-2025 take 2 puff(s) by inhalation every four hours as needed albuterol HFA (VENTOLIN HFA) 90 mcg/actuation inhaler Indications: Acute asthmatic bronchitis (HCC) , Sinobronchitis , Vertigo Inhale 2 Puffs as instructed every 4 hours as needed. 18 Each 11 12/25/2023 Active Comment on above: Inhale 2 Puffs as in structed every 4 hours as needed. 24 hr buPROPion hydrochloride 300 mg extended release oral tablet (20 sources) Aminoketone Start: 01-14-2025 End: 01-14-2025 take 300 mg by mouth once daily 300 mg, Oral, Daily, First dose on Sun01/14/25 at 1045, Do not crush, chew, or split. Start: 06-17-2015 End: 03-25-2024 take 1 tablet by mouth once daily buPROPion XL (WELLBUTRIN XL) 300 mg 24 hr tablet Indications: Reactive depression Take 1 tablet by mouth once daily. 90 tablet 3 03/25/2024 Active Comment on above: Take 1 tablet by [facility] once daily. calcium chloride 0.0014 meq/ml / potassium chloride 0.004 meq/ml / sodium chloride 0.103 meq/ml / sodium lactate 0.028 meq/ml injectable solution (2 sources) Start: End: take 75 mL intravenously every hour 75 mL/hr, IntraVENous, Continuous, Starting on Sun01/13/25 at 2345 cholecalciferol 9.52 unt/ml / glucose 357 mg/ml oral gel (2 sources) Vitamin D Start: End: 15 g, Oral, As needed, low blood sugar, Starting on Sun01/13/25 at 2348, If blood glucose less than 50 mg/dL and patient ALERT and NOT NPO, give 2 tubes glucose gel. If blood glucose less than 70 mg/dL and patient ALERT and NOT NPO, give 1 tube glucose gel. Repeat blood glucose in 15 minutes. If blood glucose is less than 70 mg/dL, repeat treatment and recheck blood glucose in 15 minutes x2 and notify provider. dicyclomine hydrochloride 10 mg oral capsule (20 sources) Anticholinergic Start: End: take 1 capsule by mouth every six hours as needed 10 mg, Oral, Every 6 hours PRN, as needed, Starting on Sun01/14/25 at 1031 Start: 02-20-2018 End: 12-22-2024 take 1 capsule by mouth every twelve hours as needed dicyclomine (BENTYL) 10 mg capsule Take 1 capsule by mouth twice daily as needed. 60 capsule 11 03/23/2023 12/22/2024 Discontinued Comment on above: Take 1 capsule by [facility] twice daily as needed. EPINEPHrine 0.01 mg/ml / lidocaine hydrochloride 10 mg/ml injectable solution (2 sources) Antiarrhythmic, alpha-Adrenergic Agonist, beta-Adrenergic Agonist, Catecholamine, Amide Local Anesthetic Start: 01-13-2025 End: 01-13-2025 20 mL, Injection, Once, On Sun01/13/25 at 2200, For 1 dose, Please have at bedside for General Surgery Resident. Please & Thanks glucagon (rdna) 1 mg injection (2 sources) Antihypoglycemic Agent Start: 01-13-2025 End: 01-14-2025 1 mg, IntraMUSCular, PRN, low blood sugar, Blood glucose less than 70 mg/dL and patient NOT ALERT or NPO and does not have IV access., Starting on Sun01/13/25 at 2348, After administration, attempt intravenous access and start D5W at 100 mL/hr. Repeat blood glucose in 15 minutes x2 and notify provider. 50 ml glucose 50 mg/ml injection (4 sources) Start: 01-13-2025 End: 01-14-2025 100 mL/hr, IntraVENous, PRN, Blood sugar less than 70mg/dL, Starting on Sun01/13/25 at 2348, Start infusion following administration of dextrose 50% or glucagon. Start: 01-13-2025 End: 01-14-2025 12.5 g, IntraVENous, PRN, lo w blood sugar, Blood glucose less than 70 mg/dL and patient NOT ALERT or NPO., Starting on Sun01/13/25 at 2348, If patient does not respond within 5 minutes, repeat dose x1. Start D5W at 100 mL/hour until ordering provider can be reached. Repeat blood glucose in 15 minutes. If blood glucose is less than 70 mg/dL, repeat treatment and recheck blood glucose in 15 minutes x2. If using Glucostabilizer, dose as instructed per system. 1 ml hydrALAZINE hydrochloride 20 mg/ml injection (2 sources) Arteriolar Vasodilator Start: 01-13-2025 End: 01-14-2025 10 mg, IntraVENous, Every 2 hour PRN, high blood pressure, 2nd Line SBP > 160 mmHg, hold for HR > 110 bpm, Starting on Sun01/13/25 at 2341 hydroCHLOROthiazide 25 mg oral tablet (12 sources) Thiazide Diuretic Start: 01-27-2021 End: 07-21-2022 take 1 tablet by mouth once daily hydroCHLOROthiazide (HYDRODIURIL, ESIDRIX) 25 mg tablet Indications: HTN (hypertension), benign Take 1 tablet by mouth once daily. 90 tablet 0 08/05/2021 07/21/2022 Discontinued Comment on above: Take 1 tablet by aaron th once daily. 1 ml HYDROmorphone hydrochloride 1 mg/ml cartridge (2 sources) Opioid Agonist Start: 01-14-2025 End: 01-14-2025 take 0.5 mg by mouth every three hours as needed 0.5 mg, IntraVENous, Every 3 hours PRN, breakthrough, Starting on Sun01/14/25 at 1029, If oral and IV narcotics ordered, use oral first and only use IV if oral is ineffective or cannot take oral. Do Not give oral and IV within 1 hour of each other unless specifically ordered. Inhalational Spacing Device (2 sources) Start: 12-25-2023 End: 12-25-2023 Inhalational Spacing Device Indications: Sinobronchitis , Vertigo 1 Device one time only for 1 dose. 1 Each 12/25/2023 12/25/2023 Start: 12-25-2023 End: 12-25-2023 Inhalational Spacing Device Indications: Sinobronchitis , Vertigo 1 Device one time only for 1 dose. 1 Each 0 12/25/2023 12/25/2023 Active Insulin Lispro (Humalog) injection 0-12 Units (2 sources) Start: 01-14-2025 End: 01-14-2025 Insulin Lispro (Humalog) injection 0-12 Units iopamidol (Isovue-370) 76 % injection 75 mL (2 sources) Start: 01-13-2025 End: 01-13-2025 take 75 mL intravenously once as needed 75 mL, IntraVENous, IMG once PRN, contrast, Starting on Sun01/13/25 at 2006, For 1 dose ivermectin 10 mg/ml topical cream (20 sources) Antiparasitic, Pediculicide Start: 02-28-2019 End: 03-25-2024 ivermectin (SOOLANTRA) 1 % crea Indications: Rosacea Apply 1 application to affected area once daily. 45 g 02/28/2019 03/25/2024 Discontinued (Course of therapy completed) Comment on above: Apply 1 application to affected area once daily. labetalol hydrochloride 5 mg/ml injectable solution (2 sources) beta-Adrenergic Zaida Start: 01-13-2025 End: 01-14-2025 10 mg, IntraVENous, Every 2 hour PRN, high blood pressure, 1st line SBP > 160 mmHg, hold for HR Losartan (2 sources) Angiotensin 2 Receptor Zaida Start: 01-14-2025 End: 01-14-2025 losartan (Cozaar) tablet 100 mg metoclopramide 10 mg oral tablet (4 sources) Dopamine-2 Receptor Antagonist Start: 06-17-2015 End: 06-17-2020 take 10 mg by mouth three times daily Metoclopramide Hcl Discontinued 10 MG PO THREE TIMES A DAY February 20, 2018 9:20am June 17, 2020 10:26am mupirocin 0.02 mg/mg topical ointment (2 sources) RNA Synthetase Inhibitor Antibacterial Start: 01-13-2025 End: 01-14-2025 1 Application, Nasal, 2 times daily, First dose on Sun01/13/25 at 2345, For 5 days, Indications: MRSA Nasal Decolonization 1 ml naloxone hydrochloride 0.4 mg/ml injection (2 sources) Opioid Antagonist Start: 01-13-2025 End: 01-14-2025 0.4 mg, IntraVENous, Every 5 min PRN, opioid reversal, respiratory depression, Starting on Sun01/13/25 at 2351, +++ For RR ondansetron ODT (Zofran-ODT) disintegrating tablet 4 mg (2 sources) Start: 01-13-2025 End: 01-14-2025 take 1 tablet by mouth every eight hours as needed for nausea and vomiting ondansetron ODT (Zofran-ODT) disintegrating tablet 4 mg 24 hr oxybutynin chloride 5 mg extended release oral tablet (18 sources) Cholinergic Muscarinic Antagonist Start: 08-05-2021 End: 09-18-2023 take 1 tablet by mouth once daily oxybutynin XL (DITROPAN XL) 5 mg 24 hr tablet Indications: Bladder irritability , Urge incontinence of urine Take 1 tablet by mouth once daily. (N32.89) Bladder irritability (N39.41) Urge incontinence of urine 30 tablet 03/23/2023 09/18/2023 Discontinued Start: 02-20-2018 take 5 mg by mouth once daily Oxybutynin Chloride Active 5 MG PO DAILY February 20, 2018 12:00am Comment on above: Take 1 tablet by aaron th once daily. (N32.89) Bladder irritability (N39.41) Urge incontinence of urine pantoprazole (ProtoNix) 40 mg in sodium chloride (PF) 0.9 % 10 mL injection (2 sources) Start: End: 5 40 mg, IntraVENous, Administer over 2 Minutes, Daily before breakfast, First dose on Sun01/14/25 at 0600, Reconstitute with 10 ml NS. Vial expires 2 hrs after reconstitution. rosuvastatin calcium 20 mg oral tablet (20 sources) HMG-CoA Reductase Inhibitor Start: End: 5 take 10 mg by mouth once daily 10 mg, Oral, Daily, First dose on Sun01/14/25 at 1045 Start: 05-19-2024 take 1 tablet by aaron th once daily rosuvastatin (CRESTOR) 10 mg tablet Indications: Pure hypercholesterolemia Take 1 tablet by mouth once daily. 30 tablet 05/19/2024 Active Start: 08-05-2021 End: 05-16-2024 take 1 tablet by mouth once daily rosuvastatin (CRESTOR) 10 mg tablet Indications: Pure hypercholesterolemia Take 1 tablet by mouth once daily. 30 tablet 03/23/2023 05/16/2024 Discontinued Start: 06-17-2020 take 10 mg by mouth at bedtime Rosuvastatin Active 10 MG PO AT BEDTIME June 17, 2020 10:25am Start: 06-17-2015 End: 06-17-2020 take 20 mg by mouth at bedtime Rosuvastatin Discontinued 20 MG PO AT BEDTIME June 17, 2015 1:00am June 17, 2020 10:28am Comment on above: Take 1 tablet by aaron th once daily. sennosides, detention 8.6 mg oral tablet (6 sources) Start: 01-14-2025 End: 01-14-2025 take 1 tablet by mouth once daily 8.6 mg (1 tablet), Oral, Nightly, First dose on Sun01/14/25 at 2100 Start: 01-14-2025 End: 01-14-2025 take 1 tablet by mouth once daily 8.6 mg (1 tablet), Oral, Nightly, First dose on Sun01/14/25 at 2100 Start: 01-14-2025 End: 01-24-2025 take 1 tablet by mouth once daily sennosides (Senokot) 8.6 MG tablet Take 1 tablet (8.6 mg) by mouth Nightly for 10 days. 10 tablet 01/14/2025 3:15 PM EDT 01/14/2025 01/24/2025 Active sucralfate 1000 mg oral tablet (17 sources) Aluminum Complex Start: 06-17-2020 End: 11-19-2023 take 1 tablet by mouth four times daily as needed sucralfate (CARAFATE) 1 gram tablet Indications: Epigastric pain Take 1 tablet by mouth four times daily as needed. as directed 56 tablet 11 08/05/2021 11/19/2023 Discontinued (Other) Comment on above: Take 1 tablet by aaron th four times daily as needed. as directed Problems Active Problems Problem Classification Problem Date Documented Da te Episodic/Chronic Asthma (2 sources) Mild intermittent asthma; Translations: [Mild intermittent asthma, uncomplicated] 03-23-2023 Chronic Cancer of breast (20 sources) History of malignant neoplasm of breast; Translations: [Personal history of malignant neoplasm of breast] 11-19-2019 Episodic Conditions associated with dizziness or vertigo (1 source) Vertigo; Translations: [Dizziness and giddiness] 12-25-2023 Episodic Diabetes mellitus with complications (4 sources) Hyperglycemia due to type 2 diabetes mellitus; Translations: [Type 2 diabetes mellitus with hyperglycemia] Onset: 03-25-2024 Chronic Diabetes mellitus without complication (20 sources) Type 2 diabetes mellitus without complication; Translations: [Type 2 diabetes mellitus without complications] Onset: 9 08-05-2018 Chronic Disorders of lipid metabolism (20 sources) Pure hypercholesterolemia; Translations: [Pure hypercholesterolemia, unspecified] Onset: 6 07-21-2005 Chronic Esophageal disorders (20 sources) Gastroesophageal reflux disease; Translations: [Gastro-esophageal reflux disease without esophagitis] Onset: 6 Resolved: 6 07-24-2005 Chronic Essential hypertension (20 sources) Essential hypertension; Translations: [Essential (primary) hypertension] Onset: 3 06-04-2017 Chronic Genitourinary symptoms and ill-defined conditions (20 sources) Urge incontinence of urine; Translations: [Urge incontinence] Onset: 9 08-09-2018 Chronic Inflammation; infection of eye (except that caused by tuberculosis or sexually transmitteddisease) (15 sources) Infection of orbit; 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] Onset: 5 07-28-2024 Chronic Mood disorders (20 sources) Reactive depression (situational); Translations: [Major depressive disorder, single episode, unspecified] 03-12-2017 Chronic Nonspecific chest pain (2 sources) Retrosternal pain ; Translations: [Precordial pain] 06-17-2020 Episodic Open wounds of head; neck; and trunk (12 sources) Laceration of nose; Translations: [Laceration without foreign body of nose, initial encounter] Onset: 5 01-14-2025 Episodic Other aftercare (11 sources) Patient encounter status; Translations: [Other detention (current) drug therapy] Episodic Other connective tissue disease (20 sources) Fibromyalgia; Translations: [Fibromyalgia] 03-27-2016 Episodic Other diseases of bladder and urethra (20 sources) Bladder irritability; Translations: [Other specified disorders of bladder] Onset: 9 08-09-2018 Chronic Other eye disorders (1 source) Unspecified disorder of orbit; Translations: [Unspecified disorder of orbit] Onset: 4 Episodic Other fractures (6 sources) Closed fracture of second cervical vertebra; Translations: [Unspecified nondisplaced fracture of second cervical vertebra, initial encounter for closed fracture] 01-14-2025 Episodic Other fractures (12 sources) Closed fracture of first cervical vertebra; Translations: [Unspecified nondisplaced fracture of first cervical vertebra, initial encounter for closed fracture] Onset: 5 01-14-2025 Episodic Other fractures (6 sources) Fracture of second cervical vertebra; Translations: [Unspecified displaced fracture of second cervical vertebra, initial encounter for closed fracture] Onset: 5 01-14-2025 Episodic Other fractures (2 sources) Unspecified nondisplaced fracture of second cervical vertebra, initial encounter for closed fracture; Translations: [Unspecified nondisplaced fracture of second cervical vertebra, initial encounter for closed fracture (HCC)] Onset: 5 Episodic Other fractures (2 sources) Unspecified nondisplaced fracture of first cervical vertebra, initial encounter for closed fracture; Translations: [Unspecified nondisplaced fracture of first cervical vertebra, initial encounter for closed fracture (HCC)] Onset: 5 Episodic Other gastrointestinal disorders (3 sources) Constipation alternates with diarrhea; Translations: [Other specified symptoms and signs involving the digestive system and abdomen] 08-06-2023 Episodic Other gastrointestinal disorders (1 source) Altered bowel function; Translations: [Change in bowel habit] 08-06-2023 Episodic Other nervous system disorders (12 sources) Acute pain due to injury; Translations: [Acute pain due to trauma] Onset: 5 01-14-2025 Episodic Other nervous system disorders (1 source) Acute pain due to trauma; Translations: [Acute pain due to trauma] Onset: 5 Episodic Other nutritional; endocrine; and metabolic disorders (20 sources) Metabolic syndrome X; Translations: [Metabolic syndrome] Onset: 3 05-31-2004 Chronic Other nutritional; endocrine; and metabolic disorders (20 sources) Obese class I; Translations: [Obesity, unspecified] Onset: 9 03-11-2019 Chronic Other screening for suspected conditions (not mental disorders or infectious disease) (2 sources) Imaging of thorax abnormal; Translations: [Abnormal findings on diagnostic imaging of other specified body structures] 12-25-2023 Chronic Other upper respiratory disease (1 source) Crusting on nose; Translations: [Other specified disorders of nose and nasal sinuses] 06-20-2024 Episodic Other upper respiratory infections (7 sources) Chronic sinusitis; Translations: [Chronic sinusitis, unspecified] Onset: 5 12-25-2023 Chronic Skull and face fractures (17 sources) Closed fracture of nasal bones; Translations: [Fracture of nasal bones, initial encounter for closed fracture] Onset: 5 01-14-2025 Episodic Spinal cord injury (15 sources) Injury of cervical spine; Translations: [Unspecified injury at unspecified level of cervical spinal cord, initial encounter] Onset: 5 01-14-2025 Chronic Spondylosis; intervertebral disc disorders; other back problems (20 sources) Cervical spondylosis; Translations: [Spondylosis without myelopathy or radiculopathy, cervical region] Onset: 5 06-27-2021 Chronic Thyroid disorders (20 sources) Acquired hypothyroidism; Translations: [Hypothyroidism, unspecified] Onset: 5 06-07-2015 Chronic Unclassified (2 sources) New Patient; Translations: [New Patient] Onset: Past or Other Problems Problem Classification Problem Date Documented Date Episodic/Chronic Abdominal pain (20 sources) Epigastric pain; Translations: [Epigastric pain] Onset: 09-03-19 11 Resolved : 06-13-20 14 06-17-2020 Episodic Blindness and vision defects (20 sources) Diplopia; Translations: [Diplopia] Onset: 06-20-20 24 04-09-2024 Episodic Gastritis and duodenitis (20 sources) Acute gastritis; Translations: [Acute gastritis without bleeding] Onset: 08-19-19 09 Resolved : 10-19-19 16 10-19-2015 Episodic Mycoses (2 sources) Candidiasis of mouth; Translations: [Candidal stomatitis] Onset: 01-23-20 24 01-23-2024 Episodic Nausea and vomiting (20 sources) Nausea; Translations: [Nausea] Onset: 08-13-19 16 Resolved : 08-13-19 Episodic Nonmalignant breast conditions (20 sources) Breast lump; Translations: [Unspecified lump in unspecified breast] Onset: 09-03-19 10 Resolved : 10-19-19 16 10-19-2015 Episodic Other connective tissue disease (1 source) Fibromyalgia; Translations: [Fibromyalgia] Onset: 03-27-20 16 Episodic Other gastrointestinal disorders (20 sources) Irritable bowel syndrome; Translations: [Irritable bowel syndrome without diarrhea] Onset: 01-25-20 Resolved : 10-19-19 16 10-19-2015 Chronic Other nutritional; endocrine; and metabolic disorders (20 sources) Morbid obesity; Translations: [Morbid (severe) obesity due to excess calories] Resolved : 08-03-19 16 08-03-2015 Chronic Other screening for suspected conditions (not mental disorders or infectious disease) (20 sources) Mammography abnormal; Translations: [Other abnormal and inconclusive findings on diagnostic imaging of breast] Onset: 04-18-20 Resolved : 10-19-19 16 10-19-2015 Episodic Other skin disorders (6 sources) Finding of head and neck region; Translations: [Localized swelling, mass and lump, head] Onset: 11-01-19 Resolved : 10-19-19 16 06-27-2021 Episodic Other skin disorders (20 sources) Localized swelling, mass and lump, head; Translations: [Swelling, mass, or lump in head and neck] Onset: 11-01-19 Resolved : 10-19-19 16 01-10-2024 Episodic Other upper respiratory disease (20 sources) Allergic rhinitis; Translations: [Allergic rhinitis, unspecified] Resolved : 10-19-19 16 03-23-2023 Chronic Other upper respiratory infections (3 sources) Acute pansinusitis; Translations: [Acute pansinusitis, unspecified] Onset: 01-23-20 24 12-25-2023 Episodic Residual codes; unclassified (20 sources) Periodic limb movement disorder; Translations: [Periodic limb movement disorder] Onset: 05-16-20 Resolved : 10-19-19 16 10-19-2015 Chronic Residual codes; unclassified (6 sources) Periodic leg movements of sleep ; Translations: [Periodic limb movement disorder] Onset: 05-16-20 Resolved : 10-19-19 16 10-19-2015 Chronic Residual codes; unclassified (20 sources) History of left mastectomy; Translations: [Acquired absence of left breast and nipple] Onset: 03-01-20 Resolved : 10-19-19 16 10-19-2015 Episodic Residual codes; unclassified (2 sources) Other specified postprocedural states; Translations: [History of paranasal sinusotomy] Onset: 06-20-20 Episodic Unclassified (2 sources) history choledochojejunostomy 01-19-2022 Unclassified (2 sources) history excision lipoma neck 01-19-2022 Results Test Name Value Interpretation Reference Range Facility Office Visiton 01-22-2025 Follow-up visit [id number] Breanne Graham 1950 F Date Provider Department Center 01/22/2025 HENNY SWANSON [facility] None Family History Problem Relation Age of Onset Cancer Mother's Brother Diabetes Brother Migraines Sister Family Status - Relation Status Age at Mother's Brother Alive Brother Alive Sister Alive Level of Service:[id number] FL OFFICE/OUTPATIENT NEW LOW MDM 30 MINUTES Reason for Visit and Comments: New Patient [542] [facility] ED MED ADMINISTRATION DETAIL on 01-21-2025 ED MED ADMINISTRATION DETAIL Casing Operator Medication Administration Record [place] [address] [place] [address] [id number] 01/13/2025 Patient: MARJORIE GRAHAM Sex: Female : 1950 Age: 74y MEASUREMENTS: Wt: 79.8 kg, Ht/Vargas: 64.0 in, BMI: 30.21 ALLERGIES: Cipro, Penicillins, Sulfa (Sulfonamide Antibiotics) Medication Ordered Medication Administration Date/Time Acetaminophen 16:47 01/13 Acetaminophen (Tylenol) PO 975 mg given. Allergies Given (Tylenol) PO 975 verified and confirmed 5 rights. Information reviewed with patient. - 16:47 01/13/2025 mg (NOW x1) 16:47 Dane Mcdaniel R.N. Scanned LORazepam 18:08 01/13 LORazepam (Ativan) IVP 0.5 mg given via Site# 1. Given (Ativan) IVP 0.5 mg Medication Wastage: 1.5 mg wasted. - 18:09 Rosey Garcia, 18:08 01/13/2025 (NOW x1) Dane Garcia R.N. Scanned 1 of 1 Normal [facility] ED NURSES CLINICAL NOTEon ED NURSES CLINICAL NOTE Nurse Narrative Nurse Clinical Narrative [place] [address] [place] [address] [id number] 01/13/2025 15:59:00 [id number] Sex: Female : 1950 Age: 74y Disposition: Transfer to [facility] Disposition Decision Time: 17:32 01/13/2025 Departure Time: 18:22 01/13/2025 TRIAGE Arrived by private vehicle. Triage time: 16:02 01/13/2025. Acuity: LEVEL 4. Chief Complaint: FALL: (graden). The patient has had neck pain. Not currently taking anticoagulation therapy. SEPSIS SCREEN: NEGATIVE. SIRS criteria negative. No possible sources of infection. -- 16:01/13/25 JACK Zambrano R.N. 16:01/13/25. BP: 166/90 MAP: 115. HR: 87. RR: 18. O2 saturation: 97% Temperature: 98.4 F. Pain level now 5/10. -- 16:01/13/25 JACK Zambrano R.N. Measurements: 16:01/13/25 Wt: 79.8 kg, Ht/Vargas: 64.0 in, BMI: 30.21 -- 16:01/13/25 JACK Zambrano R.N. Medications: omeprazole 40 mg capsule,delayed release: 40 mg once a day . -- 16:01/13/25 JACK Zambrano R.N. buPROPion HCL XL 300 mg 24 hr tablet, extended release: 300 mg once a day . -- 16:01/13/25 JACK Zambrano R.N. 1 of 5 Nurse Narrative losartan 100 mg-hydrochlorothiazide 25 mg tablet: 1 tab once a day . -- 16:01/13/25 JACK Zambrano R.N. rosuvastatin 10 mg tablet: 10 mg once a day . -- 16:01/13/25 JACK Zambrano R.N. levothyroxine 112 mcg tablet: 112 mcg once a day . -- 16:01/13/25 JACK Zambrano R.N. Myrbetriq 25 mg tablet,extended release: 25 mg twice a day . -- 16:05 01/13/25 [facility] Luigi Zambrano R.N. metFORMIN 500 mg tablet: 1000 mg once a day . -- 16:06 01/13/25 [facility] Luigi Zambrano R.N. Vit 3 oral -- 16:01/13/25 [facility] Luigi Zambrano R.N. ocuvite -- 16:01/13/25 [facility] Luigi Zambrano R.N. Jardiance 25 mg tablet: 25 mg once a day . -- 16:07 01/13/25 [facility] Luigi Zambrano R.N. Allergies: Penicillins -- 16:07 01/13/25 [facility] Luigi Zambrano R.N. Sulfa (Sulfonamide Antibiotics) -- 16:07 01/13/25 [facility] Luigi Zambrano R.N. Cipro -- 16:07 01/13/25 [facility] Luigi Zambrano R.N. Problems: Diabetes Mellitus -- 16:10 01/13/25 [facility] Luigi Zambrano R.N. Hyperlipidemia -- 16:10 01/13/25 [facility] Luigi Zambrano R.N. Hypertension -- 16:10 01/13/25 [facility] Luigi Zambrano R.N. Hypothyroidism -- 16:10 01/13/25 [facility] Luigi Zambrano R.N. Gastroesophageal Reflux -- 16:10 01/13/25 [facility] Luigi Zambrano R.N. Surgeries: Appendectomy -- 16:07 01/13/25 [facility] Hilary Easton.Ashley Cholecystectomy -- 16:08 01/13/25 [facility] Luigi Zambrano R.N. ovarian removal/tubes -- 16:08 01/13/25 [facility] Luigi Zambrano R.N. Mastectomy -- 16:08 01/13/25 [facility] Luigi Zambrano R.N. Laminectomy -- 16:08 01/13/25 [facility] Luigi Zambrano R.N. choledochojejunostomy -- 16:08 01/13/25 JACK Zambrano R.N. excision of lipoma -- 16:01/13/25 JACK Zambrano R.N. Hysterectomy -- 16:01/13/25 JACK Zambrano R.N. right knee rx -- 16:01/13/25 JACK Zambrano R.N. ;eft knee rx -- 16:01/13/25 JACK Zambrano R.N. History 2 of 5 Nurse Narrative 16:01/13/25. SOCIAL HX: Never smoker. No alcohol use or drug use. The patient has not traveled outside the [place] Infectious disease exposure: No infectious disease exposure. ABUSE ASSESSMENT: The patient answered yes to the question(s) Do you feel safe in your home? and no to the question(s) Are you afraid to go home?, Are you afraid of your partner or someone close to you?, Has your partner or someone close to you emotionally, physically, or sexually assaulted you?, Has your partner or someone close to you threatened to harm/ kill you?, Did your partner or someone close to you cause the presenting injury(s)?, Has your partner or someone close to you ever used a weapon towards you?, Have children witnessed violence in the home? and Has your partner or someone close to you physically abused children?. No report of abuse. SELF HARM ASSESSMENT: Self harm assessment was performed. The patient answered no to the question(s) Have you recently felt down, depressed, or hopeless?, Do you have thoughts of harming or killing yourself? and Do you have a plan for harming or killing yourself?. NUTRITIONAL RISK ASSESSMENT: The nutritional risk assessment revealed no deficiencies. FUNCTIONAL ASSESSMENT: Functional assessment: no impairments noted. LEARNING NEEDS ASSESSMENT: The learning needs assessment revealed no barriers. FALL RISK ASSESSMENT: Fall risk assessment completed. No risk factors identified. SKIN INTEGRITY ASSESSMENT: Skin integrity risk assessment completed. No skin integrity risk identified. -- 16:01/13/25 JACK Zambrano R.N. Interventions 16:01/13/25. Identification band and allergy band on patient. Advanced care plan (full). Protocol not initiated. Precautions no (more content not included)... Normal [facility] ED ORDER SHEET (CPOE ONLY)on 01-21-2025 ED ORDER SHEET (CPOE ONLY) Order Sheet Order Sheet [facility] [address] [place] [address] [id number] 01/13/2025 Patient: MARJORIE GRAHAM Sex: Female : 1950 Age: 74y MEASUREMENTS: Wt: 79.8 kg, Ht/Vargas: 64.0 in, BMI: 30.21 ALLERGIES: Cipro, Penicillins, Sulfa (Sulfonamide Antibiotics) MEDICATION/IV/DRIP/FLUID ORDERS Order Description Priority Entered Acknowledged Completed Acetaminophen (Tylenol) 16:20 01/13/2025 16:23 16:47 PO975 mg (NOW x1) Mercy Rossi, 01/13/2025 01/13/2025 D.Dane Pro, RMattN. Tdap IM DIPTH/TETANUS/PERT 16:20 01/13/2025 Cancelled: Other > 7yr and older0.5 mL (NOW x1) Mercy Rossi, 16:44 EDT Mercy Rossi D.O. D.O. LORazepam (Ativan) PO0.5 mg 18:02 01/13/2025 Cancelled: Other (NOW x1) Mercy Rossi, 18:03 EDT Mercy Rossi D.O. D.O. LORazepam (Ativan) IVP0.5 mg 18:04 01/13/2025 18:09 (NOW x1) Mercy Rossi, 01/13/2025 Amna Garcia, RMattNMatt 1 of 2 Order Sheet LAB ORDERS Order Description Priority Entered Acknowledged Collected Completed DIAGNOSTIC STUDY ORDERS Order Description Priority Entered Acknowledged Completed CT C-Spine wo Cont Stat Stat 16:20 01/13/2025 16:23 16:23 Mercy Rossi, 01/13/2025 01/13/2025 Dane Goyal, R.N. Reason for Study: fall laceration over nasal bridge no thinner -loc CT Brain wo Cont Stat Stat 16:20 01/13/2025 16:23 16:23 Mercy Rossi, 01/13/2025 01/13/2025 Dane Goyal, RMattNMatt Reason for Study: fall laceration over nasal bridge no thinner -loc CT Facial wo Cont Stat Stat 16:20 01/13/2025 16:23 16:23 Mercy Rossi, 01/13/2025 01/13/2025 Dane Goyal, R.N. Reason for Study: fall laceration over nasal bridge no thinner -loc STAFF ORDERS Order Description Priority Entered Acknowledged Collected Completed [Electronically signed by Mercy Rossi D.O. (01/21/2025 06:59 EDT)] 2 of 2 Normal [facility] ED PHYSICIAN CLINICAL REPORT on 01-21-2025 ED PHYSICIAN CLINICAL REPORT Narrative Physician Clinical [address] [place] [address] [id number] 01/13/2025 15:59:00 Patient: MARJORIE GRAHAM Sex: Female : 1950 Age: 74y Disposition: Transfer to [facility] Disposition Decision Time: 17:32 01/13/2025 Departure Time: 18:22 01/13/2025 Measurements Wt: 79.8 kg, Ht/Vargas: 64.0 in, BMI: 30.21 Initial Vital Sign Measured Time BP MAP HR RR O2Sat ETCO2 Temp Pain GCS RTS 16:02 01/13/2025 166/90 115 87 18 97% 98.4 F 5 Time Seen: 16:03 01/13/2025. HISTORY OF PRESENT ILLNESS Chief Complaint: FALL. PAST HISTORY Diabetes Mellitus Gastroesophageal Reflux Hyperlipidemia Hypertension Hypothyroidism Surgeries: ;eft knee rx 1 of 9 Narrative Appendectomy Cholecystectomy choledochojejunostomy excision of lipoma Hysterectomy Laminectomy Mastectomy ovarian removal/tubes right knee rx Medications: buPROPion HCL XL 300 mg 24 hr tablet, extended release: 300 mg once a day . Jardiance 25 mg tablet: 25 mg once a day . levothyroxine 112 mcg tablet: 112 mcg once a day . losartan 100 mg-hydrochlorothiazide 25 mg tablet: 1 tab once a day . metFORMIN 500 mg tablet: 1000 mg once a day . Myrbetriq 25 mg tablet,extended release: 25 mg twice a day . ocuvite omeprazole 40 mg capsule,delayed release: 40 mg once a day . rosuvastatin 10 mg tablet: 10 mg once a day . Vit 3 oral Allergies: Cipro Penicillins Sulfa (Sulfonamide Antibiotics) ADDITIONAL NOTES The nursing notes have been reviewed. PHYSICAL EXAM Vital Signs: Have been reviewed. Appearance: (Primary: Airway intact Bilateral breath sounds Bilateral palpable carotid and femoral pulses +2 GCS is 15. 2 of 9 Narrative General: 5/5 strength in bilateral upper and lower extremities. Equal intact sensation all extremities. The cervical thoracic and lumbar spine are without midline tenderness step-offs or deformities. There is also no overlying skin changes along the entire length of the back. Pelvis is stable to lateral compression. Negative logroll bilaterally. Upper extremities are without obvious traumatic injuries. EYES: lids/conjunctiva normal. PERR bilaterally EARS/NOSE/THROAT: Mucous membranes moist, nares normal, lips/teeth normal uvula midline without oral pharyngeal erythema, exudate or swelling TMs normal bilaterally. No lymphangitis/lymphedema. HEAD/NECK: normocephalic. Neck immobilized in cervical collar. There is a 1.5 cm laceration over the nasal bridge without any active arterial bleeding. RESPIRATORY: respiratory effort normal, speaks in full sentences, no tripod position, no accessory muscle use. Lungs clear to auscultation without rhonchi, wheezes, rales CARDIAC: Regular rate and rhythm, no edema. ABDOMINAL: Soft, ND/NT. No evidence of fluid wave. No pulsatile masses on exam, rebound tenderness, Alfred sign or pain over Mcburney's point. MUSCLES/EXTREMITIES: No abnormal range of motion, no swelling. SKIN: Warm, pink and dry. No rashes, dermatoses, petechiae or lesions. NEUROLOGICAL: Speech is clear and appropriate. Normal level of consciousness. Gait and coordination are normal. 5/5 strength in all extremities. Sensation intact in all extremities PSYCH: Normal mood and affect. Judgement/competence is appropriate). LABS, X-RAYS, AND EKG Diagnostic Study Tests: CT BRAIN W/O CONTRAST Final 3 of 9 Narrative EXAM Date: 01/13/2025 16:38:00 EDT MsgRcvd: 01/13/2025 16:[address] [address] Patient: MARJORIE GRAHAM. Phone#: : [phone] Age: 74 Gender: F Pt. Type: ER Account: [id number] Location: 052 Ordering: DR. MERCY ROSSI Exam Date: 01/13/2025/16:26 Family Phys: GRISELDA Charge Code: 910137 Physician: [place] Order #: [id number] Dose#: 52.30 mGy PROCEDURE: CT BRAIN WITHOUT CONTRAST COMPARISON: [facility], CT, BRAIN W/O CON, 04/01/2024, 16:27. INDICATIONS: Fall laceration over nasal bridge no thinner- loc. TECHNIQUE: CT images were obtained without contrast material. All CT scans at this facility use dose modulation, iterative reconstruction, and/or weight based dosing when appropriate to reduce radiation dose to as low as reasonably achievable. IV CONTRAST: No IV contrast used,0.0ml TOTAL DOSE: 52.30 CTDIvol(mGy) FINDINGS: CEREBRUM: Age-appropriate atrophy is present, without visible acute hemorrhage or lesion. CEREBELLUM: No edema, hemorrhage, mass, acute infarction, or inappropriate atrophy. BRAINSTEM: No edema, hemorrhage, mass, acute infarction, or inappropriate atrophy. CSF SPACES: Ventricles, cisterns, and sulci are appropriate for age. No hydrocephalus, subarachnoid hemorrhage, or mass. SKULL: No mass or other (more content not included)... Normal [facility] ED SUPER BILLon 01-21-2025 ED SUPER BILL [address] [address] [id number] 01/13/2025 Patient: MARJORIE GRAHAM Sex: Female : 1950 Age: 74y Facility Professional Category Item Description Code Code Quantity Fee Total Nurse/E/M EMERGENCY 159129 1 $0.00 $0.00 DEPT VISIT HIGH SEVERITYFUNCJ (03734-97) Nurse/IV/IM/Infusions IVP initial (25528) 050740 1 $0.00 $0.00 Grand $0.00 Total Providers Mercy Rossi D.O. Chief Complaint FALL. Principal Diagnosis (type 2 odontoid fracture, C1 fracture nondisplaced). 1 of 1 Normal [facility] ED VISIT SUMMARYon ED VISIT SUMMARY Visit Overview Visit Overview [id number] [facility] [place] [address] [id number] 01/13/2025 Patient: MARJORIE GRAHAM Sex: Female : 1950 Age: 74y 01/21/2025 06:59 AM EDT ED Arrival:15:59 01/13/2025 EDT Status: Recent Travel:no Language:eng Adv Directive: Isolation Status: Ethnicity:N Fall Risk:no risk Infectious Disease Exposure:no Measurements:5'4 / 162.6 Self-Harm Status:risk Sepsis Screen:negative cm 176.0 lb / 79.8 kg Chief Complaint:(graden) ALLERGIES Cipro Penicillins Sulfa (Sulfonamide Antibiotics) HOME MEDICATIONS buPROPion HCL XL 300 mg 24 hr tablet, extended release: 300 mg once a day . Jardiance 25 mg tablet: 25 mg once a day . levothyroxine 112 mcg tablet: 112 mcg once a day . losartan 100 mg-hydrochlorothiazide 25 mg tablet: 1 tab once a day . metFORMIN 500 mg tablet: 1000 mg once a day . Myrbetriq 25 mg tablet,extended release: 25 mg twice a day . 1 of 3 Visit Overview ocuvite omeprazole 40 mg capsule,delayed release: 40 mg once a day . rosuvastatin 10 mg tablet: 10 mg once a day . Vit 3 oral PAST MEDICAL HISTORY / PROBLEMS Diabetes Mellitus Gastroesophageal Reflux Hyperlipidemia Hypertension Hypothyroidism PAST SURGICAL HISTORY Appendectomy Cholecystectomy Hysterectomy Laminectomy Mastectomy ovarian removal/tubes SOCIAL HISTORY Nutritional assessment: No deficits Functional assessment: No impairments Learning needs: No barriers Smoking status: No Alcohol use: No Drug use: No ED COURSE MEDICATIONS GIVEN IN EMERGENCY DEPARTMENT 16:47 01/13/25 Acetaminophen (Tylenol) PO 975 mg 18:08 01/13/25 LORazepam (Ativan) IVP 0.5 mg IV SITE INFORMATION 17:53 01/13/25 Site #1 right AC, 18g. 2 of 3 Visit Overview INTAKE OUTPUT REASSESMENT (most recent) 18:02 01/13/25. GENERAL / NEURO / PSYCH: Alert. Awake. Oriented X 4. Alert. Appears in no acute distress. Oriented X 4. Speech normal. Mood/affect normal. Moves all extremities equally. No motor deficit. No sensory deficit. Reflexes normal. Pupils equal, round and reactive to light. VITAL SIGNS First Vitals Last Vitals Temp 16:02 01/13/25 98.4 F Temp 18:00 01/13/25 BP 16:02 01/13/25 166/90 BP 18:00 01/13/25 151/91 HR 16:02 01/13/25 87 HR 18:00 01/13/25 85 RR 16:02 01/13/25 18 RR 18:00 01/13/25 16 O2 Sat 16:02 01/13/25 97% O2 Sat 18:00 01/13/25 95% Pain 16:02 01/13/25 5 Pain 18:00 01/13/25 3 ETCO2 16:02 01/13/25 ETCO2 18:00 01/13/25 GCS 16:02 01/13/25 GCS 18:00 01/13/25 9 RTS 16:02 01/13/25 RTS 18:00 01/13/25 PROCEDURES NURSING INTERVENTIONS LABS / STUDIES LABS / STUDIES ORDERED CT Brain wo Cont CT C-Spine wo Cont CT Facial wo Cont CLINICAL IMPRESSION 3 of 3 Normal [facility] ED VITALS FLOW SHEETon 01-21 ED VITALS FLOW SHEET Vitals Vital Sign Flow Sheet [facility] [address] [place] [address] [id number] 01/13/2025 Patient: MARJORIE GRAHAM Sex: Female : 1950 Age: 74y Measurements Wt: 79.8 kg, Ht/Vargas: 64.0 in, BMI: 30.21 Measured Time BP MAP HR RR O2Sat ETCO2 Temp Pain GCS RTS 18:00 01/13/2025 151/91 111 85 16 95% 3 9 17:58 01/13/2025 159/91 113 85 17:43 01/13/2025 161/89 113 79 17:28 01/13/2025 169/80 109 82 16:58 01/13/2025 154/87 117 70 16:43 01/13/2025 166/89 114 72 16:02 01/13/2025 166/90 115 87 18 97% 98.4 F 5 1 of 1 Normal [facility] Office Visiton 01-21-2025 Follow-up visit [id number] Breanne Graham 1950 F Date Provider Department Center 01/21/2025 [id number] CALI [facility] TRAUMA None No family history on file Level of Service:[id number] [place] OFFICE/OUTPATIENT ESTABLISHED MOD MDM 30 MIN Reason for Visit and Comments: Follow-up [171334] - S/P fall 01/13/25 Normal [facility] Progress Noteon 01-21-2025 Progress Note [facility] TRAU[facility] [address] [place] [address] Dept: [phone] Dept Loc: [phone] Patient Name: Marjorie Graham Date: 01/21/25 Reason for Visit: Chief Complaint Patient presents with Follow-up S/P fall 01/13/25 Visit type: Established Patient HISTORY OF PRESENT ILLNESS 74 y.o. female status post mechanical fall. The incident happened around 3pm on 01/13 When the event happened the patient was in her garden and tripped over a hose and hit her face. Denies loss of consciousness. She presented to [facility] and was transferred here for C1 and C2 fracture and she was placed in a c-collar. CT imaging also with nondisplaced nasal bridge fracture and fracture nasal septum and avulsion at the tip of the alveolar spine. She did not receive Tdap as it has been given in the last year. INJURIES: -C1 vertebral body fracture -C2 odontoid process fracture -Nose fracture -Face laceration garrison 1.5 cm -Acute traumatic pain Incidental Findings: N/a Hospital course: Marjorie Graham is a 74 y.o. female with PMHx of HTN, HLD, fibromyalgia, T2DM, hypothyroidism, and GERD who fell in her garden, tripping over a hose, face first on 7/15/25 and presented to [facility]. She was transferred to [facility] as direct admit to Trauma ICU after trauma workup revealed C1 and C2 fractures, nasal septum fracture and nasal bridge laceration. She is neuro intact without deficits, GCS 15. Orthospine consulted with recommendations for medical management with aspen collar at all times, except for hygiene purposes with follow up outpatient with Dr. Brothers. AIR VALVE REPAIRER consulted for bedside swallow evaluation and patient cleared for easy chew diet, thin liquids and oral medications as tolerated. Diet advanced as tolerated. Pain well controlled on oral medications. PT/OT evaluation for home with PRN assist and outpatient PT. Patient tolerating diet well, pain well controlled on oral medications. She remains HDS and neuro intact with gross motor and and sensory intact. Patient discharged in stable condition. Consultations in Hospital: IP CONSULT TO ORTHOPAEDIC SURGERY IP CONSULT TO DIETITIAN IP CONSULT TO GERIATRICS IP CONSULT TO PALLIATIVE CARE IP CONSULT TO WOUND PREVENTION Subjective (Location/Symptom, Timing/Onset,Context/Set ting, Quality, Duration, Modifying Factors, Severity) Note limiting factors. Patient doing well. Came straight here from Dr Brothers's office. Was told she is likely going to contiue collar for 5 weeks but has liberated use with meals. She is tolerating wearing the collar without difficulty. Able to eat and sleep. Pain well controlled and does not have much during the day. States upon awakening in the morning she experiences most of her pain but 2 Tylenol is enough to subside it. No numbness or tingling in the UE. No fever or chills. Has appointment with PRS tomorrow for evaluation of her nose. Post Concussion Syndrome Screening Positives Yes No Comments Headache: [] [x] Dizziness: [] [x] Sensitivity to Light/sound: [x] Memory Deficits: [] [x] Impaired Concentration: [] [x] Irritability: [] [x] Sleep Disturbance: [] [x] Balance Difficulties: [] [x] Nausea/Vomiting: [] [x] Visual Changes: [] [x] Feeling in a Fog: [] [x] Watches TV - 3 hours a day, smart phone - 2 hr/day, tablet / laptop/ PC - hr/day, EtOH / drugs - No Past head injuries: No Medical History[1] Surgical History[2] Family History[3] Social History Socioeconomic History Marital status: Spouse name: Not on file Number of children: Not on file Years of education: Not on file Highest education level: Not on file Occupational History Not on file Tobacco Use Smoking status: Never Passive exposure: Past Smokeless tobacco: Never Vaping Use Vaping status: Never Used Substance and Sexual Activity Alcohol use: Yes Alcohol/week: 1.0 standard drink of alcohol Types: 1 Cans of beer per week Comment: rare Drug use: Never Sexual activity: Defer Other Topics Concern Not on file Social History Narrative Not on file Social Drivers of Health Financial Resource Strain: Low Risk (09/20/2024) Received from [facility] Overall Financial Resource Strain (CARDIA) Difficulty of Paying Living Expenses: Not hard at all Food Insecurity: No Food Insecurity (09/20/2024) Received from [facility] Hunger Vital Sign Worried About Running Out of Food in the Last Year: Never true Ran Out of Food in the Last Year: Never true Transportation Needs: No Transportation Needs (01/14/2025) PRAPARE - Transportation Lack of Transportation (Medical): No Lack of Transportation (Non-Medical): No Physical Activity: Sufficiently Active (09/20/2024) Received from [facility] Exercise Vital Sign Days of Exercise per Week: 4 days Minutes of Exercise per Session: 50 min Stress: Stress Concern Present (09/20/2024) Receiv (more content not included)... [facility] [id number] [phone] Care Managment Initi al Assessment Date: 01/14/2025 Patient Name: Marjorie Graham : 1950 Patient Information Source of Information: Patient Cognition/Language: WFL - Within Functional Limits Permission given to speak with patient policy services representative/caregiver as indicated: Yes Confirmation of Payer with patient/family: Yes Payer Name: Medicare [place]: No Confirmation of Primary Care Physician: Confirmed PCP Name: Fifi Green Seen in last 2 years?: Yes Primary Caregiver: Self If assistance needed, confirmed caregiver ready, willing and able to care for patient at discharge: Yes Confirmed with: Marjorie Living Arrangements Current Residence: House Number of Floors 2 Number of Entry Steps: 1 Bed/Bath Levels: Both first floor Facility: Facility Name: Plan to Return: Lives with: Spouse/significant other Support Systems: Spouse/significant other, Children Activities of Daily Living Ambulation: Independent Bathing/Dressing: Independent Elimination/Continence/T oileting: Independent Feeding: Independent Who Assists with Activities of Daily Living: Instrumental Activities of Daily Living Prescription Coverage: Yes Pharmacy Used: in [place] Medication Management: Independent Transportation/Shopping: Independent Transportation Mode: Car (pt still drives) Needs Assistance with Transportation at Discharge: No Meal Preparation: Independent Laundry/Cleaning: Independent Finances/Bill Paying: Independent Communication: Independent Types of Care Services/Equipment Utilized Care Services: Dialysis Type: Durable Medical Equipment: Patient's Goal/Discharge Plan Patient expects to be discharged to: home? Discharge Planning Actions: Continue to follow Patient's Choice Rights and [employer] and Collaborative Relationships Disclosed as Indicated for Post-Acute Care: Interdisciplinary Team Engagement: PT/OT, Palliative Care, Geriatric Assessment Social Work Referral for: Additional Information: Pt admitted s/p mech fall, C2 odontoid process and C1 anterior arch fxs, and nasal bone fxs. Introduced myself and role. Pt lives with , whom can provide assistance and transportation when pt is discharged. PT/OT is pending. Will follow. Normal [facility] BASIC METABOLIC PANELon 12-30 Anion gap [Moles/Vol] 6 mmol/L Normal 3-13 [facility] Comment on above: Performed By: #### L AB67, LAB15, LAB46, [id number] ####Payroll And Benefits Analyst: BRYANT MOSHER ([id number])[address] Calcium [Mass/Vol] 9.2 mg/dL Normal 8.8-10.0 [facility] Comment on above: Performed By: #### L AB67, LAB15, LAB46, [id number] ####Payroll And Benefits Analyst: BRYANT MOSHER ([id number])[address] Chloride [Moles/Vol] 104 mmol/L Normal 98-107 [facility] Comment on above: Performed By: #### L AB67, LAB15, LAB46, [id number] ####Payroll And Benefits Analyst: BRYANT [id number])[facility] [place] [address] CO2 [Moles/Vol] 28 mmol/L Normal 23-31 [facility] Comment on above: Performed By: #### L AB67, LAB15, LAB46, [id number] ####Payroll And Benefits Analyst: BRYANT MOSHER ([id number])[facility])[address] [place] [address] Creatinine [Mass/Vol] 0.76 mg/dL Normal 0.57-1.11 [facility] Comment on above: Performed By: #### L AB67, LAB15, LAB46, [id number] ####Payroll And Benefits Analyst: BRYANT MOSHER ([id number])[facility])[address] [place] [address] GLOMERULAR FILTRATION RATE ML/MIN/1.73 SQ M.PREDICTED 81.3 mL/min/1.73m*2 Normal >60.0 [facility] Comment on above: Result Comment: Calc ulation based on the Chronic Kidney Disease Epidemiology Collaboration (CKD-EPI) equation refit without adjustment for race Performed By: #### L AB67, LAB15, LAB46, [id number] ####Payroll And Benefits Analyst: BRYANT MOSHER ([id number])[facility])[address] [place] [address] Glucose [Mass/Vol] 153 mg/dL High 82-115 [facility] Comment on above: Performed By: #### L AB67, LAB15, LAB46, [id number] ####Payroll And Benefits Analyst: BRYANT MOSHER ([id number])[facility])[address] [place] [address] Potassium [Moles/Vol] 4.0 mmol/L Normal 3.5-5.1 [facility] Comment on above: Result Comment: [facility] potassium values may be up to 0.5 mmol/L lower than serum values. Performed By: #### L AB67, LAB15, LAB46, [id number] ####Payroll And Benefits Analyst: BRYANT MOSHER ([id number])[facility])[address] Sodium [Moles/Vol] 138 mmol/L Normal 136-145 [facility] Comment on above: Performed By: #### L AB67, LAB15, LAB46, [id number] ####Payroll And Benefits Analyst: BRYANT MOSHER ([id number])[facility] ([facility])[address] [place] [address] Urea nitrogen [Mass/Vol] 21 mg/dL Normal 9-23 [facility] Comment on above: Performed By: #### L AB67, LAB15, LAB46, [id number] ####Payroll And Benefits Analyst: BRYANT MOSHER ([id number])[facility])[address] [place] [address] Basic metabolic 1998 panelon 01-14-2025 Anion gap [Moles/Vol] 6 mmol/L 3 - 13 mmol/L [facility] Calcium [Mass/Vol] 9.2 mg/dL 8.8 - 10. 0 mg/dL [facility] Chloride [Moles/Vol] 104 mmol/L 98 - 10 7 mmol/L [facility] CO2 [Moles/Vol] 28 mmol/L 23 - 31 mmol/L [facility] Creatinine [Mass/Vol] 0.76 mg/dL 0.57 - 1.11 mg/dL [facility] GFR/1.73 sq M.predicted (S/P/Bld) [Vol rate/Area] 81.3 mL/min - PINF [facility] Comment on above: Calculation based on the Chronic Kidney Disease Epidemiology Collaboration (CKD-EPI) equation refit without adjustment for race Glucose [Mass/Vol] 153 mg/dL High 82 - 115 mg/dL [facility] Interpretation and review of laboratory results Abnormal [facility] Potassium [Moles/Vol] 4 mmol/L 3.5 - 5.1 mmol/L [facility] Comment on above: Plasma potassium keith ues may be up to 0.5 mmol/L lower than serum values. Sodium [Moles/Vol] 138 mmol/L 136 - 145 mmol/L [facility] Urea nitrogen [Mass/Vol] 21 mg/dL 9 - 23 mg/dL [facility] CBC (HEMOGRAM)on 01-14-2025 Erythrocyte distribution width (RBC) [Ratio] 12.9 % Normal 11.5-15.0 [facility] Comment on above: Performed By: #### L [id number] ####Payroll And Benefits Analyst: BRYANT MOSHER ([id number])[address] Hematocrit (Bld) [Volume fraction] 40.6 % Normal 35.0-47.0 [facility] Comment on above: Performed By: #### L [id number] ####Payroll And Benefits Analyst: BRYANT MOSHER ([id number])[facility])[address] [place] [address] Hemoglobin (Bld) [Mass/Vol] 13.2 g/dL Normal 11.7-16.0 [facility] Comment on above: Performed By: #### L [id number] ####Payroll And Benefits Analyst: BRYANT MOSHER ([id number])[address] MCH (RBC) [Entitic mass] 28.1 pg Normal 26.0-34.0 [facility] Comment on above: Performed By: #### L AB294 ####Payroll And Benefits Analyst: BRYANT MOSHER ([id number])[address] MCHC 32.5 % Normal 30.5-36.0 [facility] Comment on above: Performed By: #### L [id number] ####Payroll And Benefits Analyst: BRYANT MOSHER ([id number])[address] MCV (RBC) [Entitic vol] 86.4 fL Normal 77.0-99.0 [facility] Comment on above: Performed By: #### L [id number] ####Payroll And Benefits Analyst: BRYANT MOSHER ([id number])[address] Platelet mean volume (Bld) [Entitic vol] 9.9 fL Normal 9.0-12.7 [facility] Comment on above: Performed By: #### L [id number] ####Payroll And Benefits Analyst: BRYANT MOSHER ([id number])[facility] ([facility])[address] [place] [address] Platelets (Bld) [#/Vol] 238 10*3/uL Normal 140-440 [facility] Comment on above: Performed By: #### L [id number] ####Payroll And Benefits Analyst: BRYANT MOSHER ([id number])[facility])[address] [place] [address] RBC (Bld) [#/Vol] 4.70 10*6/uL Normal 3.80-5.20 [facility] Comment on above: Performed By: #### L [id number] ####Payroll And Benefits Analyst: BRYANT MOSHER ([id number])[facility])[address] [place] [address] WBC (Bld) [#/Vol] 8.8 10*3/uL Normal 3.6-10.7 [facility] Comment on above: Performed By: #### L [id number] ####Payroll And Benefits Analyst: BRYANT MOSHER ([id number])[facility] ([facility])[address] [place] [address] CBC panel Auto (Bld)on 01-14 Erythrocyte distribution width (RBC) [Ratio] 12.9 % 11.5 - 15.0 % [facility] Hematocrit (Bld) [Volume fraction] 40.6 % 35.0 - 47.0 % [facility] Hemoglobin (Bld) [Mass/Vol] 13.2 g/dL 11.7 - 16.0 g/dL [facility] Interpretation and review of laboratory results Normal [facility] MCH (RBC) [Entitic mass] 28.1 pg 26.0 - 34.0 pg [facility] MCHC (RBC) [Mass/Vol] 32.5 % 30.5 - 36.0 % [facility] MCV (RBC) [Entitic vol] 86.4 fL 77.0 - 99.0 fL [facility] Platelet mean volume (Bld) [Entitic vol] 9.9 fL 9.0 - 12.7 fL [facility] Platelets (Bld) [#/Vol] 238 10*3/uL 140 - 440 10*3/uL [facility] RBC (Bld) [#/Vol] 4.7 10*6/uL 3.80 - 5.2 0 10*6/uL [facility] WBC (Bld) [#/Vol] 8.8 10*3/uL 3.6 - 10.7 10*3/uL [facility] Cobalamin (Vitamin B12) [Mas s/Vol]on 01-14-2025 Interpretation and review of laboratory results Normal [facility] Consulton 01-14-2025 Consult Nutrition Assessment Type and Reason for Visit: Initial, Consult (poor intake/appetite for 5 days or more) Nutrition Recommendations/Plan: Continue with easy to chew diet. Ordered Ziarco Standard 1.4 @ 1400 via MNT protocol. Monitor nutritional status. Malnutrition Assessment: Malnutrition Status: At risk for malnutrition (Comment) Context: Acute Illness Findings of the 6 clinical characteristics of malnutrition: Energy Intake: 50% or less of estimated energy requirements for 5 or more days Weight Loss: No significant weight loss Body Fat Loss: No significant body fat loss Muscle Mass Loss: No significant muscle mass loss Fluid Accumulation: No significant fluid accumulation Guest Request Runner Strength: Not Performed Nutrition Assessment: Pt is a 74-year-old female with PMH significant for DM, GERD, HLD, essential HTN and hypothyroidism who presents status post mechanical fall. The incident happened around 3pm on 01/13 When the event happened the patient was in her garden and tripped over a hose and hit her face. Denies loss of consciousness. She presented to [facility] and was transferred here for C1 and C2 fracture and she was placed in a c-collar. CT imaging also with nondisplaced nasal bridge fracture and fracture nasal septum and avulsion at the tip of the alveolar spine. She did not receive Tdap as it has been given in the last year. Patient pain level currently is 6/10. AIR VALVE REPAIRER evaluated and approved an easy to chew diet; pt is on same. RD visited pt, she endorses eating small amounts throughout the day, does not eat large meals, weight has been stable, agrees to try ONS - will try Vanilla Ziarco (Ziarco Standard 1.4). HgBA1C was 8.6. Estimated Daily Nutrient Needs: Energy Requirements Based On: Kcal/kg Weight Used for Energy Requirements: [place] Weight for Energy Calculation (kg): 52.2 kg Total Energy Requirements (kcals/day): 25-30 kcals/kg = 4407-9581 kcals/day Weight Used for Protein Requirements: [place] Weight in Kg Used for Protein Requirements: 52.2 kg Estimated Total Protein (g/day): 1.1-1.2g protein/kg = 57-63g protein/day Estimated Daily Total Fluid (ml/day): 1305 mls Nutrition Related Findings: Net IO Since Admission: -235 mL [01/14/25 1201] Lives with: Spouse/significant other, Orientation Level: Oriented X4, Cognition: Follows commands, Appropriate judgement, Appropriate safety awareness, Appropriate attention/concentration, Appropriate for developmental age, Best Verbal Response: Oriented, Teeth: Intact, Other (Comment) (multiple caps, bridges) Feeding: Independent Room Service Room Service: Selective Mike Scale Score: 17. Gastrointestinal (WDL): Within Defined Limits Edema: no edema Oxygen Therapy: None (Room air) Meds reviewed: Scheduled: Scheduled Meds[1] Continuous: Continuous Meds[2] Current Nutrition Therapies: Adult diet Easy to Chew Current Oral Intake Average Meal Intake: 26-50% Average Supplements Intake: None Ordered Anthropometric Measures: Height: 160 cm (5' 2.99) Current Body Weight: 80.8 kg (178 lb 2.1 oz) Weight Source: Bed Scale [place] Body Weight (lbs) (Calculated): 115 lbs [place] Body Weight (Kg) (Calculated): 52 kg % [place] Body Weight (Calculated): 154.9 % BMI (kg/m2) (Calculated): 31.6 BMI Categories: Obese Class 1 (BMI 30.0-34.9) Wt Readings from Last 10 Encounters: 01/13/25 80.8 kg (178 lb 2.1 oz) LABS: Recent Labs 01/14/25 0333 NA 138 K 4.0 CL 104 CO2 28 BUN 21 CREATININE 0.76 GLUCOSE 153* CALCIUM 9.2 Nutrition Diagnosis: Predicted inadequate energy intake related to acute injury/trauma as evidenced by intake 26-50% Nutrition Interventions: Nutrition Education/Counseling: No recommendation at this time Coordination of Nutrition Care: Continue to monitor while inpatient Goals: Goals: PO intake 75% or greater, by next RD assessment Nutrition Monitoring and Evaluation: Food/Nutrient Intake Outcomes: Food and Nutrient Intake, Supplement Intake Physical Signs/Symptoms Outcomes: Biochemical Data, GI Status, Weight, Skin, Nutrition Focused Physical Findings, Hemodynamic Status, Fluid Status or Edema Discharge Planning: Too soon to determine Shannan Barrett RD,LD,[facility] Contact: *[phone] or Ian Benites [1] acetaminophen, 1,000 mg, Oral, 3 times per day bacitracin, , Topical, TID buPROPion XL, 300 mg, Oral, Daily losartan, 100 mg, Oral, Daily And hydroCHLOROthiazide, 25 mg, Oral, Daily insulin lispro, 0-12 Units, SubCUTAneous, TID WC And insulin lispro, 0-12 Units, SubCUTAneous, Nightly levothyroxine, 112 mcg, Oral, Daily mupirocin, 1 Application, Nasal, BID polyethylene glycol (PEG) 3350, 17 g, Oral, Daily rosuvastatin, 10 mg, Oral, Daily sennosides, 1 tablet, Oral, Nightly [2] [facility] Consult Palliative Care Init ial Consult Chief Complaint: Marjorie Graham is a 74 y.o. female with chief complaint of fall Palliative Care is actively following. Full consult attempted. Discharge order now in place. Marjorie Graham is a 74 y.o. female with PMH cancer, HLP, hypothyroidism, HTN, asthma, fibromyalgia, DM 2. Follows with OP ophtho d/t sinus surgery in April, woke up with diplopia, had to get ELENA myectomy. She takes bupropion for fibromyalgia. Pt had mechanical fall, tripped over garden hose, hit face. Transferred to [facility] from [facility] for C1-C2 fracture and nasal bridge fracture. Pt being DC to home, in process of getting dressed to leave. She has no unaddressed questions or concerns about her care. Explained reason for Palliative care trigger consult. She has passed speech evaluation, has appropriate follow-up, GOC established and no uncontrolled symptoms. No need for OP follow-up. Linda Yeager MD [facility] Consult [facility] Inpatient Consult Service Admission Date: 01/13/2025 Admission Status: INPATIENT Chief Complaint: neck pain Reason for Appointment Geriatrics consulted for paris fall Assessment & Plan Principal Problem: Acute traumatic injury of cervical spine (HCC) Active Problems: Closed nondisplaced fracture of first cervical vertebra (HCC) C2 cervical fracture (HCC) Closed fracture of nasal septum Nasal laceration Acute pain due to trauma Fall -Multiple risk factors including decreased vision, diabetes, and possible medication side effect -Continue PT/OT as able while inpatient -Vitamin D pending -Check orthostatic vital signs as able -Medications with associated fall risk include: losartan-hydrochlorothia zide, jardiance (hypoglycemia) -History of diplopia following sinus surgery in April. Continue to follow with Dr Buckner outpatient (ophthalmology surgery). Patient has prism lens and planning for updated prescription in January -Continue fall precautions C1 Ring Fracture, Non-Displaced type II fracture of odontoid -Management per orthospine-recommend no acute surgical intervention. [place] collar in place Non-displaced nasal bridge fracture, avulsion to tip of alveolar spine -Laceration to nasal bridge repaired -referral to plastic surgery outpatient Acute pain due to trauma --Recommend scheduled acetaminophen 1g TID with PRN oxycodone (2.5 mg - 5 mg) PRN for breakthrough No results found for: ALT, AST, GGT, ALKPHOS, BILITOT --Monitor for mental status change with scheduled robaxin -Optimize nonpharmacologic pain treatment modalities. -continue scheduled bowel regimen while on narcotics Debility --Related to acute injury, diplopia, fibromyalgia --At baseline patient independent of ADLs and IADLs --Await PT/OT eval --Anticipate d/c to home with home care level of PT/OT Fibromyalgia '-Continue home prescribed bupropion 300 mg daily At Risk for Delirium -Risk factors include: pain, head injury, age, ICU environment -Delirium Protocol -Recommend Melatonin nightly PRN insomnia -Avoid sedating/anticholinergic medications -Encourage family visits -Encourage sleep hygiene -Minimize barriers to nutrition -Optimize sensory input and access to assistive devices where indicated -Encourage time up in chair - including at meals - as able -Unless contraindicated, encourage regular ambulation with assistance -D/c Roberts, restraints, IV lines, as able I spent total time of 60 minutes face to face with the patient and/or family discussing the diagnosis and importance of compliance with the treatment plan as well as documenting on the day of the visit. In addition, that total time includes the following: -Reviewing previous notes, -Reviewing labs, -Obtaining and/or reviewing separately obtained history, -Communicating results to the patient/family/caregiver , -Counseling/educating the patient/family/caregiver , -Documenting clinical information in the patients electronic record, and -Performing a medically appropriate exam and/or evaluation Subjective: HPI 74 y.o. year-old female with PMH of diabetes mellitus, fibromyalgia, hypothyroid presented as a direct admission on 01/13/25 (transferred from [facility]) after a mechanical fall at home with head injury. Patient tripped over garden hose and found to have C1 fracture, nondisplaced type II fracture of odontoid. Admitted for orthospine evaluation. Per review of the chart, H&P, and multiple progress notes -CT head with no intracranial abnormality -CT maxillofacial with nondisplaced nasal bridge fracture, avulsion at the tip of the alveolar spine -Evaluated by orthospine with no acute surgical intervention indicated. Plan to remain in aspen collar until outpatient follow up appointment. Recommend WBAT -Laceration of the nasal bridge repaired -Recent labs reviewed with BMP unremarkable, vitamin B12 335, CBC unremarkable, TSH 1.86, ethanol <10 Geriatrics ED screen: Quick Cognitive Screen (QCS): Nursing Delirium Screen (Nu-Desc): Conversation with patient: -Patient reports she was outside and tripped over her garden hose hitting her face on the ground. Reports she has had double vision in her left eye since April after a sinus surgery procedure. Reports she sees double when looking to the side. 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 Doing well on myrbetriq Sleep (including use of medications/OTC for sleep): Denies Alcohol/drugs: Occasional alcohol use Mood: OK Memory: Good, may forget what she wants to grab when entering a room on occasion Numb (more content not included)... Normal [facility] ECG 12-LEADon 01-14-2025 ECG 12-LEAD IMPRESSION: Sinus rhythm Left axis deviation No previous ECG available for comparison Electronically Signed On 01-14-2025 09:32:54 EDT by Juma Box Normal [facility] ETHANOLon 01-14-2025 ETHANOL IN SER/PLAS- PEREIRA <10 Normal <10 [facility] Comment on above: Result Comment: ORDMarco R COMMENTS: MARKETING PLANNER depression is seen >100 mg/dL. NOTE: This result is for medical treatment only. Analysis performed using non-forensic procedures. Performed By: #### L AB67, LAB15, LAB46, [id number] ####Payroll And Benefits Analyst: BRYANT MOSHER ([id number])[facility] ([facility])[address] [place] [address] Ethanol (Bld) [Mass/Vol]on 0 01-14-2025 Ethanol [Mass/Vol] mg/dL NINF - 10 mg/dL [facility] Interpretation and review of laboratory results Normal [facility] MARKETING PLANNER depression is se en >100 mg/dL. NOTE: This result is for medical treatment only. Analysis performed using non-forensic procedures. [facility] HEMOGLOBIN A1Con 01-14-2025 Glucose [Mass/Vol] 183 mg/dL Normal [facility] Comment on above: Result Comment: SHELLY R COMMENTS: HbA1c values of 5.7-6.4 percent indicate an increased risk for developing diabetes mellitus. HbA1c values greater than or equal to 6.5 percent are diagnostic of diabetes mellitus. For diagnosis of diabetes in individuals without unequivocal hyperglycemia, results should be confirmed by repeat testing. Performed By: #### L AB90 #### Payroll And Benefits Analyst: BRYANT MOSHER ([id number]) [facility] ([facility] [address] [place] [address] HEMOGLOBIN A1C 8.0 %HbA1C High <5.7 [facility] Comment on above: Result Comment: Norm al less than 5.7% Prediabetes 5.7% to 6.4% Diabetes 6.5% or higher --HgbA1C levels may not be accurate in patients who have renal disease, received recent blood transfusions, are anemic, or who have dyshemoglobinemia. Performed By: #### L AB90 #### Payroll And Benefits Analyst: BRYANT MOSHER ([id number]) [facility] ([facility]) [address] [place] [address] Laboratory - Chemistry and C hemistry - challengeon 01-14-2025 Cobalamin (Vitamin B12) [Mass/Vol] 335 pg/mL 213 - 816 pg/mL [facility] Glucose [Mass/Vol] 153 mg/dL High 70 - 100 mg/dL [facility] Glucose [Mass/Vol] 146 mg/dL High 70 - 100 mg/dL [facility] TSH Qn 1.86 m[IU]/L [facility] Average glucose Estimated from glycated hemoglobin (Bld) [Mass/Vol] 183 mg/dL [facility] Glucose [Mass/Vol] 141 mg/dL High 70 - 100 mg/dL [facility] Laboratory - Hematology and Cell countson 01-14-2025 HbA1c (Bld) [Mass fraction] 8 % High NINF [facility] Comment on above: Normal less than 5.7 % Prediabetes 5.7% to 6.4% Diabetes 6.5% or higher --HgbA1C levels may not be accurate in patients who have renal disease, received recent blood transfusions, are anemic, or who have dyshemoglobinemia. No Panel Informationon 01-14 Interpretation and review of laboratory results Abnormal [facility] Performed by: [address] [address] CLIA ID: [id number] [facility] Interpretation and review of laboratory results Abnormal [facility] Performed by: [address] [address] CLIA ID: [id number] [facility] Sinus rhythm Left axis deviation No previous ECG available for comparison Electronically Signed On 01-14-2025 09:32:54 EDT by Juma Box CV Juma Gómez MD - 01/14/2025 IMPRESSION: Sinus rhythm Left axis deviation No previous ECG available for comparison Electronically Signed On 01-14-2025 09:32:54 EDT by Juma Box [facility] Interpretation and review of laboratory results Abnormal [facility] HbA1c values of 5.7- 6.4 percent indicate an increased risk for developing diabetes mellitus. HbA1c values greater than or equal to 6.5 percent are diagnostic of diabetes mellitus. For diagnosis of diabetes in individuals without unequivocal hyperglycemia, results should be confirmed by repeat testing. [facility] Interpretation and review of laboratory results Abnormal [facility] Performed by: [address] [address] CLIA ID: [id number] [employer] Panel InformationOrdered By: Juma Box on 01-14-2025 P [place] 27 degrees [employer] Phone: FL Interval 174 ms [employer] Work Phone: QRS [place] -39 degrees [employer] Work Phone: QRSD Interval 98 ms [employer] Work Phone: QT Interval 420 ms [employer] Work Phone: QTC Interval 451 ms [employer] Work Phone: T Wave [place] 47 degrees [employer] Phone: [employer] Phone: Nursing Noteon 01-14-2025 Nursing Note Patient/ give n all discharge instructions with all questions answered. IV removed with no complications. Patient transport on the way Normal [employer] [facility] Progress Noteon 01-14-2025 Progress Note Speech-Language Pathology SPEECH LANGUAGE PATHOLOGY [facility] Bedside Swallow Evaluation Patient Name: Marjorie Graham Evaluation Date: 01/14/2025 Date of : 1950 Admission Date: 01/13/2025 6:00 PM Age: 74 y.o. Room/Bed: T2-210/T2-210 A IMPRESSION: S/s oropharyngeal dysphagia. No overt clinical s/s pulmonary compromise with PO. Risk factors for aspiration include Gerd and presence of C-collar. RECOMMENDATION: Recommend Easy to chew solids and Thin liquids and meds as tolerated and the following precautions: - Upright positioning for all PO intake - Slow rate of intake - Small bites/sips - No straws per sinus precautions - Alternate solid and liquids Dysphagia NOMS: Level 6: Swallowing is safe, and individual eats and drinks independently and requires no more than minimal cueing. Individual usually self-cues when difficulty occurs. May need to avoid specific food items (e.g., popcorn) or require additional time (due to difficulty with mastication). Pt would benefit from skilled acute AIR VALVE REPAIRER services to ensure patient tolerance of the recommended diet and assess for potential diet upgrade. Frequency: 3 days/wk for 2 weeks Barriers: Medical complications Prognosis: good D/C Recommendations: to be determined Subjective Patient alert and cooperative. Seen upright in bed. Answers all basic questions with clear vocal quality. Follows all basic commands. No visitors at bedside. Spoke with RN Jeferson who cleared pt to be evaluated. Patient is in [place] C-collar. Dysphagia History: No history of AIR VALVE REPAIRER services in EMR with retrospective chart review Baseline Diet: regular/thin liquids Current Diet: Dietary Orders (From admission, onward) Start Ordered 01/13/25 2342 NPO diet without enteral medications Diet effective now Question: Medications? Answer: without enteral medications 01/13/25 2344 Tube Feeding: no Tracheostomy: no Recent Chest Xray/CT of Chest: XR chest 1 view 01/13/2025 Impression No radiographic acute cardiopulmonary process. Report Dictated on Electronically Signed By: Lanie Roldan MD Electronically Signed Date/Time: 01/13/2025 11:04 PM EDT Oxygen: Oxygen Therapy: None (Room air) Past Medical History: Medical History[1] Past Surgical History: Surgical History[2] Admission Diagnosis: Patient Active Problem List Diagnosis Date Noted Acute traumatic injury of cervical spine (HCC) 01/13/2025 History of Present Illness: 74 y.o. female status post mechanical fall. The incident happened around 3pm on 01/13 When the event happened the patient was in her garden and tripped over a hose and hit her face. Denies loss of consciousness. She presented to [place] and was transferred here for C1 and C2 fracture and she was placed in a c-collar. CT imaging also with nondisplaced nasal bridge fracture and fracture nasal septum and avulsion at the tip of the alveolar spine. She did not receive Tdap as it has been given in the last year. Patient pain level currently is 6/10. Problem list: -C1 vertebral body fraccture -C2 dens fracture -Nose fracture -Face laceration garrison 1.5 cm -Acute traumatic pain -DM -GERD -HLD -Essential HTN -Hypothyroidism -Obesity class I Procedures: 01/13 - primary repair of nose laceration Patient Complaint: Patient voices no complaints at bedside. Pain: Pt denies any current pain. PPE Worn: gloves Objective Bedside swallow eval completed. Patient presents with mild oral and pharyngeal phase deficits. Oral Motor Mechanism Velopharyngeal Structure/Function (CN X & XI) - Unable to visualize, + gag Oral Hygiene: clean Swallowing Examination PO Trials - ice chips, (teaspoon, fed by clinician) - thin liquid, (teaspoon, cup edge, fed by clinician) - puree, (teaspoon, fed by clinician) - soft and bite sized solids - regular solids Oral Phase Pt with adequate oral receipt of PO trials. No anterior spillage. Mastication with regular textures appeared incomplete and prolonged. Oral transit time appears WFL. Mild oral residue. Additional Observations: Oral residue clears with a liquid wash. Pharyngeal Phase Hyolaryngeal excursion clinically appears adequate and timely per palpation. One-two swallows palpated per bolus, likely indicative of adequate pharyngeal clearance. No overt clinical s/s pulmonary compromise as evidenced by no cough, no throat clear, and no change in vocal quality. Additional Observations: Patient's cup sips are very audible, with delayed dry cough to initial thin liquid trials. Dry cough is not repeated as exam progresses. No straws per sinus precautions. Education Education Given: swallowing strategies, diet recommendations Given To: patient and RN Response: verbalizes understanding Goals Patient Stated Goal: None stated. Encounter Problems Encounter Problems (Active) Swallowing Patient will tolerate the least restrict (more content not included)... Normal [facility] Progress Note ---- -------- Attestation signed by Simba Samayoa MD at 01/15/2025 11:43 AM ~~~~~~~~~~~~~~~~~~~~~~~~ ~~~~~~~~~~~~~~~~~~~~~~~~ ~~~~~~~~~~~~~ ATTENDING ADDENDUM Problem List[1] I have personally performed a face to face diagnostic evaluation on this patient. I have reviewed and agree with the care plan as documented above by my FIRE CONTROL MECHANIC/MATEOC. I personally discussed the review of systems and interviewed the patient along with performing a physical examination. In addition, I discussed the patient's condition and treatment options with him/her when possible. All of the patient's questions were answered and family updated when appropriate and possible. I I performed a physical exam and ROS on the same date of service as above. My findings agree with the above note except for any details corrected below. Home medications: -Bupropion -Celebrex -Vitamin D -Jardiance -Synthroid -Losartan/Hydrochlorothi azide -Mirabegron -Protonix -Rosuvastatin -Bentyl 24 hour events: -Admitted to STICU 08/03 to C2 odontoid fx, C2 anterior arch fx, nasal bone fx -Evaluated by ortho spine --> no surgical intervention -Facial laceration repaired Imaging reviewed and independently interpreted: CT c-spine --> cervical spine fx 01/13 Chief Complaint: -Neck pain Injuries/problem list: Acute, acute on chronic, unstable or uncontrolled chronic problems/diagnoses: -C1 anterior arch fx -C2 odontoid process fx -Facial laceration -Nasal bone fx -Acute pain -At risk for delirium -Constipation Stable chronic problems, affecting patient care: -Depression -Hypertension -Chronic pain -Low vitamin D -Overactive bladder -GERD -Hyperlipidemia Surgeries: -Facial laceration repair 01/13 Assessment: 74 y/o female s/p mechanical fall resulting in cervical spine fractures and nasal bone fractures Management/Plan: Neuro: Cervical spine fractures -C1 anterior arch fx with C2 odontoid fx -Discussed with ortho spine --> no surgical intervention -Continue cervical collar until follow up -Neurovascularly intact Acute traumatic pain -Scheduled tylenol --> switch to PO -PRN dilaudid and start PRN oxycodone -Hold home celebrex Depression -Restart home bupropion At risk for delirium -Appreciate geriatrics consultation -As needed melatonin -Delirium precautions -ETOH level checked --> negative HEENT: Facial laceration -Repaired, local wound care Nasal bone fx -Follow up as OP with PRS Cardiac: Hx of HTN -Restart home lisinopril/hydrochloroth iazide Hx of HPL -Restart home statin Pulm: -Stable on RA -Pulmonary toilet FEN/GI: -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 --> carb control -HLIV Constipation -Start miralax/senna -Last recorded BM prior to admission Hx of GERD -Restart home PO protonix : -Voiding -DC BMP -Cr 0.76 Hx of overactive bladder -Restart home mirabegron ID: -WBC 8.8, DC CBC -Mupirocin BID x 5 days for MRSA decolonization Heme: -Hb 13.2 -DC CBC Endo: Hx of hyperlipidemia -Continue BGT checks, no SSI required -Hold home jardiance -A1c of 8 --> needs to follow up with PCP Hypothyroidism -Restart home synthroid Low vitamin D -Restart vitamin D MSK: Fall -PT/OT --> cleared for home, with outpatient PT Prophylaxis: -Okay to start lovenox Dispo: -DC home today, discussed with PT and trauma navigator/case management Patient evaluated on 01/14/2025 Total Care Time throughout the day today was >= 50 minutes (including chart/data review/analysis care coordination, and [id number] encounter), and was spent discussing/counseling the patient/family regarding the diagnosis, care plan, and importance of compliance with the treatment plan for Marjorie Graham. I examined the patient independently. I reviewed relevant data myself and may have also done so in the context of team rounds. A full chart review was performed. Level of Medical Decision Making: [x]High []Moderate []Low Complexity: [x]Acute or chronic illness/injury posing a threat to life or bodily function without treatment (HIGH) []Chronic illness with severe exacerbation, progression, or side effect of treatment (HIGH) []Chronic illness with mild to moderate exacerbation, progression, or side effect of treatment (MOD) []Previously undiagnosed (new) problem with uncertain prognosis (MOD) []Acute illness with systemic symptoms (MOD) []Acute, complicated injury (MOD) []Multiple stable chronic illnesses (MOD) Risk: [x]Parental controlled substances (HIGH) []Decision resuscitate de-escalate care because of poor prognosis (HIGH) []Decision regarding elective major surgery with identified patient or procedure risk factors (HIGH) []Decision regarding emergency major surgery (HIGH) []Drug or therapy requiring intensive monitoring (HIGH) [x]Requires close neuro-critical care mo (more content not included)... Normal [facility] THYROID STIMULATING HORMONEo n 01-14-2025 THYROID STIMULATING HORMONE 1.86 uIU/mL Normal 0.35-4.94 [facility] Comment on above: Performed By: #### L AB67, LAB15, LAB46, [id number] ####Payroll And Benefits Analyst: BRYANT MOSHER ([id number])[facility] ([facility])[address] [place] [address] TSH Qnon 01-14-2025 Interpretation and review of laboratory results Normal [facility] VITAMIN B12on 01-14-2025 Cobalamin (Vitamin B12) [Mass/Vol] 335 pg/mL Normal 213-816 [facility] Comment on above: Performed By: #### L AB67, LAB15, LAB46, [id number] ####Payroll And Benefits Analyst: BRYANT MOSHER ([id number])[facility] ([facility])[address] [place] [address] Vital signsOrdered By: James Box on 01-14-2025 Heart rate 69 /min bpm [facility] Work Phone: CT BRAIN W/O CONTRASTon 12-30 CT BRAIN W/O CONTRAST [place] [address] Patient: MARJORIE GRAHAM Phone#: : 1950 Age: 74 Gender: F Pt. Type: ER Account: [id number] Location: [facility] Ordering: DR. MERCY ROSSI Exam Date: 01/13/2025/16:26 Family Phys: TALAMYSAS Charge Code: [id number] Physician: Alexandria Order #: [id number] Dose#: 52.30 mGy PROCEDURE: CT BRAIN WITHOUT CONTRAST COMPARISON: [facility], CT, BRAIN W/O CON, 04/01/2024, 16:27. INDICATIONS: Fall laceration over nasal bridge no thinner- loc. TECHNIQUE: CT images were obtained without contrast material. All CT scans at this facility use dose modulation, iterative reconstruction, and/or weight based dosing when appropriate to reduce radiation dose to as low as reasonably achievable. IV CONTRAST: No IV contrast used,0.0ml TOTAL DOSE: 52.30 CTDIvol(mGy) FINDINGS: CEREBRUM: Age-appropriate atrophy is present, without visible acute hemorrhage or lesion. CEREBELLUM: No edema, hemorrhage, mass, acute infarction, or inappropriate atrophy. BRAINSTEM: No edema, hemorrhage, mass, acute infarction, or inappropriate atrophy. CSF SPACES: Ventricles, cisterns, and sulci are appropriate for age. No hydrocephalus, subarachnoid hemorrhage, or mass. SKULL: No mass or other significant visible lesion. SINUSES: A 10 millimeter mucocele is present in the right maxillary sinus ORBITS: Limited views are unremarkable. OTHER: Negative. CONCLUSION: 1. There is no evidence of acute intracranial abnormality. Dictated by: Faith Monroe MD on 01/13/2025 at 16:40 Approved by: Faith Monroe MD on 01/13/2025 at 16:46 Normal [facility] CT CERVICAL W/O CONTRASTon 0 01-13-2025 CT CERVICAL W/O CONTRAST [place] [id number] Patient: MARJORIE GRAHAM Phone#: : 1950 Age: 74 Gender: F Pt. Type: ER Account: [id number] Location: [facility] Ordering: DR. MERCY ROSSI Exam Date: 01/13/2025/16:26 Family Phys: GRISELDA Charge Code: [id number] Physician: Alexandria Order #: [id number] Dose#: 52.30 mGy PROCEDURE: CT CERVICAL WITHOUT CONTRAST COMPARISON: None. INDICATIONS: Fall laceration over nasal bridge no thinner- loc. TECHNIQUE: Multi-planar CT images were created without intravenous contrast. All CT scans at this facility use dose modulation, iterative reconstruction, and/or weight-based dosing when appropriate to reduce radiation dose to as low as reasonably achievable. IV CONTRAST: No IV contrast used,0.0ml TOTAL DOSE: 52.30 CTDIvol(mGy) FINDINGS: CRANIOCERVICAL AREA: Normal foramen magnum with no Chiari malformation. PARASPINAL AREA: Normal with no visible mass. BONES: Oblique fracture of the odontoid is present. Fracture is nondisplaced. There is defect in the anterior aspect the C1 ring suspicious for acute fracture. CERVICAL DISC LEVELS: C2-C3: No significant disc/facet abnormality, spinal stenosis, or foraminal stenosis. C3-C4: No significant disc/facet abnormality, spinal stenosis, or foraminal stenosis. C4-C5: Disc space narrowing is present. There is bony hypertrophy with narrowing of the foramina bilaterally. C5-C6: Disc space narrowing is present. There is bony hypertrophy with narrowing of the foramina bilaterally. C6-C7: There is minimal anterolisthesis likely on degenerative basis. There is mild bony hypertrophy at the articular facettes. C7-T1: No significant disc/facet abnormality, spinal stenosis, or foraminal stenosis. CONCLUSION: 1. Multilevel degenerative changes present with foraminal narrowing. Continued Report - Page 2 of 2 Patient: MARJORIE GRAHAM Phone#: : 1950 Age: 74 Gender: F Pt. Type: ER Account: [id number] Location: 052 Ordering: DR. MERCY ROSSI Exam Date: 01/13/2025/16:26 Family Phys: TALAMYSAS Charge Code: [id number] Physician: Alexandria Order #: [id number] Dose#: 52.30 mGy 2. Nondisplaced fracture of the odontoid. Type 2. Nondisplaced fracture of the anterior C1 ring. 3. This report was communicated by telephone to Dr. Mercy Rossi at the dictation time shown below. Dictated by: Faith Monroe MD on 01/13/2025 at 16:47 Approved by: Faith Monroe MD on 01/13/2025 at 17:09 Normal [facility] CT FACIAL BONES W/O CONTRAST on 01-13-2025 CT FACIAL BONES W/O CONTRAST [place] [address] Patient: MARJORIE GRAHAMMatt Phone#: : 1950 Age: 74 Gender: F Pt. Type: ER Account: [id number] Location: 052 Ordering: DR. MERCY ROSSI Exam Date: 01/13/2025/16:26 Family Phys: TALAMYSAS Charge Code: [id number] Physician: Alexandria Order #: [id number] Dose#: 27.80 mGy PROCEDURE: CT FACIAL BONES WITHOUT CONTRAST COMPARISON: None. INDICATIONS: Fall laceration over nasal bridge no thinner- loc. TECHNIQUE: After obtaining the patient's consent, CT images were created without non-ionic intravenous contrast. All CT scans at this facility use dose modulation, iterative reconstruction, and/or weight based dosing when appropriate to reduce radiation dose to as low as reasonably achievable. IV CONTRAST: No IV contrast used,0.0ml TOTAL DOSE: 27.80 CTDIvol(mGy) FINDINGS: FACIAL BONES: Normal. No bony lesion or fracture SINUSES: Mucocele in the lateral right maxillary sinus. NASAL FOSSA: Nondisplaced fracture of the nasal bridge. Fracture of the nasal septum was minimal deviation to the left. Fracture at the tip of the alveolar spine. SKULL BASE: Normal. No mass or bone destruction. ORBITS: Normal. No visible mass, hematoma, edema or fracture. CAVERNOUS SINUS: Normal. Symmetric appearance with no visible lesion. SALIVARY GLANDS: Normal. The parotid and submandibular glands are unremarkable. OTHER: Normal. The nasopharynx, oropharynx, and oral cavity are unremarkable. No lymphadenopathy. CONCLUSION: 1. Nondisplaced nasal bridge fracture. Fracture of the nasal septum. Avulsion at the tip of the alveolar spine. Dictated by: Faith Monroe MD on 01/13/2025 at 17:19 Approved by: Faith Monroe MD on 01/13/2025 at 17:27 Normal [facility] CT HEAD NECK ANGIO W AND WO IV CONTRASTon 01-13-2025 CT HEAD NECK ANGIO W AND WO IV CONTRAST Patient Name: [facility] 1950 [id number] Exam Date/Time: 01/13/2025 19:54 Procedure: CT HEAD NECK ANGIO W AND WO IV CONTRAST Ordering Provider: CAREY ALEKSANDAR Reason For Exam: C1 fracture after fall, eval for BCVI EXAMINATION: CT HEAD NECK ANGIO W AND WO IV CONTRAST CLINICAL HISTORY: C1 fracture after fall, eval for BCVI COMPARISON: None TECHNIQUE: CT angiogram of the head and neck were obtained with intravenous contrast. Thin isotropic axial imaging was obtained through the brain and neck from the vertex to the thoracic inlet during rapid IV contrast administration for evaluation of the vessels. Multiplanar and 3D maximum intensity projection reformulations were created from the raw CT data which were interpreted in conjunction with the axial images to render the findings listed below. Measurements of the internal carotid arteries are performed according to NASCET criteria comparing the narrowest diameter of the internal carotid artery with the normal internal carotid artery diameter more distally. Dose reduction was employed with automated exposure control. FINDINGS: CT BRAIN No mass or acute hemorrhage. No evidence of acute infarct. The ventricles are within normal limits for age. The skull, paranasal sinuses and tympanomastoid cavities are normal. CT ARTERIOGRAM Extracranial Circulation: Aortic Arch: No significant stenosis in the proximal brachiocephalic vessels. Carotid Arteries Right Common Carotid: No stenosis. Right Internal Carotid: No stenosis, dissection, or pseudoaneurysm. Left Common Carotid: No stenosis. Left Internal Carotid: No stenosis, dissection, or pseudoaneurysm. Vertebral Arteries: Patent with no stenosis or dissection. Intracranial Circulation Anterior Circulation: The internal carotid arteries are patent. ACAs and MCAs are patent. No vessel cutoff, aneurysm or focal hemodynamically significant stenosis. Vertebrobasilar Circulation: Intracranial vertebral arteries, PICA/AICA branches, basilar artery, SCAs and roll picker are patent. No vessel cutoff, aneurysm or focal hemodynamically significant stenosis. Other: Nondisplaced oblique odontoid process fracture of C2 and nondisplaced anterior arch fracture of C1 IMPRESSION: CT Head: No intracranial traumatic injuries. CTA Head/Neck: No evidence of blunt cerebrovascular injury. Nondisplaced acute fractures of C2 odontoid process and C1 anterior arch. Report Dictated on Electronically Signed By: Spencer Marcelino MD Electronically Signed Date/Time: 01/13/2025 9:36 PM EDT C1 fracture after fall, eval for BCVI [facility] CTA Head vessels and Neck ve ssels WO and W contrast Fernando 01-13-2025 CT Head: No intracra nial traumatic injuries. CTA Head/Neck: No evidence of blunt cerebrovascular injury. Nondisplaced acute fractures of C2 odontoid process and C1 anterior arch. Report Dictated on Electronically Signed By: Spencer Marcelino MD Electronically Signed Date/Time: 01/13/2025 9:36 PM EDT [facility] Patient Name: MARJORIE GRAHAM : 1950 [facility]#: [id number] Exam Date/Time: 01/13/2025 19:54 Procedure: CT HEAD NECK ANGIO W AND WO IV CONTRAST Ordering Provider: CAREY ALEKSANDAR Reason For Exam: C1 fracture after fall, eval for BCVI EXAMINATION: CT HEAD NECK ANGIO W AND WO IV CONTRAST CLINICAL HISTORY: C1 fracture after fall, eval for BCVI COMPARISON: None TECHNIQUE: CT angiogram of the head and neck were obtained with intravenous contrast. Thin isotropic axial imaging was obtained through the brain and neck from the vertex to the thoracic inlet during rapid IV contrast administration for evaluation of the vessels. Multiplanar and 3D maximum intensity projection reformulations were created from the raw CT data which were interpreted in conjunction with the axial images to render the findings listed below. Measurements of the internal carotid arteries are performed according to NASCET criteria comparing the narrowest diameter of the internal carotid artery with the normal internal carotid artery diameter more distally. Dose reduction was employed with automated exposure control. FINDINGS: CT BRAIN No mass or acute hemorrhage. No evidence of acute infarct. The ventricles are within normal limits for age. The skull, paranasal sinuses and tympanomastoid cavities are normal. CT ARTERIOGRAM Extracranial Circulation: Aortic Arch: No significant stenosis in the proximal brachiocephalic vessels. Carotid Arteries Right Common Carotid: No stenosis. Right Internal Carotid: No stenosis, dissection, or pseudoaneurysm. Left Common Carotid: No stenosis. Left Internal Carotid: No stenosis, dissection, or pseudoaneurysm. Vertebral Arteries: Patent with no stenosis or dissection. Intracranial Circulation Anterior Circulation: The internal carotid arteries are patent. ACAs and MCAs are patent. No vessel cutoff, aneurysm or focal hemodynamically significant stenosis. Vertebrobasilar Circulation: Intracranial vertebral arteries, PICA/AICA branches, basilar artery, SCAs and roll picker are patent. No vessel cutoff, aneurysm or focal hemodynamically significant stenosis. Other: Nondisplaced oblique odontoid process fracture of C2 and nondisplaced anterior arch fracture of C1 [facility] [employer] Spencer Marcelino M D - 01/13/2025 Patient Name: MARJORIE GRAHAM : 1950 [facility]#: [id number] Exam Date/Time: 01/13/2025 19:54 Procedure: CT HEAD NECK ANGIO W AND WO IV CONTRAST Ordering Provider: CAREY ALEKSANDAR Reason For Exam: C1 fracture after fall, eval for BCVI EXAMINATION: CT HEAD NECK ANGIO W AND WO IV CONTRAST CLINICAL HISTORY: C1 fracture after fall, eval for BCVI COMPARISON: None TECHNIQUE: CT angiogram of the head and neck were obtained with intravenous contrast. Thin isotropic axial imaging was obtained through the brain and neck from the vertex to the thoracic inlet during rapid IV contrast administration for evaluation of the vessels. Multiplanar and 3D maximum intensity projection reformulations were created from the raw CT data which were interpreted in conjunction with the axial images to render the findings listed below. Measurements of the internal carotid arteries are performed according to NASCET criteria comparing the narrowest diameter of the internal carotid artery with the normal internal carotid artery diameter more distally. Dose reduction was employed with automated exposure control. FINDINGS: CT BRAIN No mass or acute hemorrhage. No evidence of acute infarct. The ventricles are within normal limits for age. The skull, paranasal sinuses and tympanomastoid cavities are normal. CT ARTERIOGRAM Extracranial Circulation: Aortic Arch: No significant stenosis in the proximal brachiocephalic vessels. Carotid Arteries Right Common Carotid: No stenosis. Right Internal Carotid: No stenosis, dissection, or pseudoaneurysm. Left Common Carotid: No stenosis. Left Internal Carotid: No stenosis, dissection, or pseudoaneurysm. Vertebral Arteries: Patent with no stenosis or dissection. Intracranial Circulation Anterior Circulation: The internal carotid arteries are patent. ACAs and MCAs are patent. No vessel cutoff, aneurysm or focal hemodynamically significant stenosis. Vertebrobasilar Circulation: Intracranial vertebral arteries, PICA/AICA branches, basilar artery, SCAs and roll picker are patent. No vessel cutoff, aneurysm or focal hemodynamically significant stenosis. Other: Nondisplaced oblique odontoid process fracture of C2 and nondisplaced anterior arch fracture of C1 IMPRESSION: CT Head: No intracranial traumatic injuries. CTA Head/Neck: No evidence of blunt cerebrovascular injury. Nondisplaced acute fractures of C2 odontoid process and C1 anterior arch. Report Dictated on Electronically Signed By: Spencer Marcelino MD Electronically Signed Date/Time: 01/13/2025 9:36 PM EDT [facility] Radiology Study observation (narrative) [facility] CTA Head vessels and Neck ve ssels WO and W contrast IVOrdered By: Spencer Marcelino on 01-13-2025 [facility]View Work Phone: Consulton 01-13-2025 Consult Ortho Spine Consult Patient: Marjorie Graham Date of : 1950 Acct: [id number] PCP: No primary care provider on file. Date of Admission: 01/13/2025 Date of Service: Pt seen/examined on 01/13/2025 Chief Complaint: Neck pain s/p GLF History Of Present Illness: 74 y.o. female who presents with neck pain after fall from standing. She is a transfer from [facility]. Patient endorses head trauma but denies loss of consciousness. She denies pain to any other extremities. She denies any numbness or tingling to her extremities. She denies bowel or bladder incontinence. Denies any saddle anesthesia. She states that following her fall, she was able to walk and clean herself up. She denies having any weakness in her extremities. Pertinent PMH and orthopaedic surgical history include: Lumbar discectomy 20+ years ago at outside hospital without any complications; bilateral total knee arthroplasties by Dr. Guerrero Tobacco/alcohol/illicit substances: Denies substance abuse Social: Lives at home and is quite active (was tending to her lawn/garden today) Patient ambulation status: no difficulty. Antiplatelets/Anticoagul ation includes: none. Hx from chart and/or Pt. Past Medical History: Medical History[1] Past Surgical History: Recent Surgeries in Orthopedic Surgery No cases to display Home Medications: Prior to Admission medications Not on File Current Hospital Medications: Current Medications[2] Allergies: Patient has no allergy information on record. Social History: Social History Socioeconomic History Marital status: Spouse name: Not on file Number of children: Not on file Years of education: Not on file Highest education level: Not on file Occupational History Not on file Tobacco Use Smoking status: Not on file Smokeless tobacco: Not on file Substance and Sexual Activity Alcohol use: Not on file Drug use: Not on file Sexual activity: Not on file Other Topics Concern Not on file Social History Narrative Not on file Social Drivers of Health Financial Resource Strain: Low Risk (09/20/2024) Received from [facility] Overall Financial Resource Strain (CARDIA) Difficulty of Paying Living Expenses: Not hard at all Food Insecurity: No Food Insecurity (09/20/2024) Received from [facility] Hunger Vital Sign Worried About Running Out of Food in the Last Year: Never true Ran Out of Food in the Last Year: Never true Transportation Needs: Patient Declined (09/20/2024) Received from [facility] PRAPARE - Transportation Lack of Transportation (Medical): Patient declined Lack of Transportation (Non-Medical): Patient declined Physical Activity: Sufficiently Active (09/20/2024) Received from [facility] Exercise Vital Sign Days of Exercise per Week: 4 days Minutes of Exercise per Session: 50 min Stress: Stress Concern Present (09/20/2024) Received from [facility] [employer] [facility] - Occupational Stress Questionnaire Feeling of Stress : Rather much Social Connections: Socially Integrated (09/20/2024) Received from [facility] Social Connection and Isolation Panel [NHANES] Frequency of Communication with Friends and Family: More than three times a week Frequency of Social Gatherings with Friends and Family: More than three times a week Attends Uatsdin Services: More than 4 times per year Active Member of Clubs or Organizations: Yes Attends Club or Organization Meetings: More than 4 times per year Marital Status: Intimate Partner Violence: Not on file Housing Stability: Low Risk (11/14/2019) Received from [facility] Housing Stability Vital Sign Unable to Pay for Housing in the Last Year: No Number of Places Lived in the Last Year: 1 Unstable Housing in the Last Year: No Family History: Family History[3] Further Family History is noncontributory to this injury. REVIEW OF SYSTEMS: Review of Systems - General ROS: negative for - chills, fatigue, fever, malaise or night sweats Psychological ROS: negative Ophthalmic ROS: negative ENT ROS: negative for - headaches or sore throat Hematological and Lymphatic ROS: negative for - bleeding problems or blood clots Respiratory ROS: no cough, shortness of breath, or wheezing Cardiovascular ROS: no chest pain or dyspnea on exertion Gastrointestinal ROS: negative Musculoskeletal ROS: See HPI Neurological ROS: See HPI All other systems reviewed and are negative PHYSICAL EXAM: BP 114/86 (BP Location: Right arm, Patient Position: Lying) Pulse 88 Temp 36.8 ?C (98.3 ?F) (Temporal) Resp 15 Ht 1.6 m (5' 3) Wt 80.8 kg (178 lb 2.1 oz) SpO2 95% BMI 31.55 kg/m? GENERAL APPEARANCE: Awake and oriented x3. No acute distress, except appropriate to injury. MOOD AND AFFECT: Appropriate to situation GAIT AND STATION: Patient is in bed and able to ambulate COORDINATION and BALANC (more content not included)... [facility] XR CERVICAL SPINE 2-3 VIEWSo n 01-13-2025 XR CERVICAL SPINE 2-3 VIEWS Patient Name: MARJORIE GRAHAM : 1950 Exam Date/Time: 01/13/2025 22:41 Procedure: XR CERVICAL SPINE 2-3 VIEWS Ordering Provider: CAREY ALEKSANDAR Reason For Exam: c1 and c2 fx CERVICAL SPINE SERIES CLINICAL INDICATION: Neck pain. c1 and c2 fx AP, lateral, and odontoid views of the cervical spine were obtained. COMPARISON: None. FINDINGS: Alignment: Radiograph is were obtained in a cervical collar. There is grade 1 anterolisthesis at C4-5 and C6-7. Intervertebral Disc Spaces: Moderate disc height loss with endplate spurring at C5-6. Vertebrae: Known fracture of the C2 odontoid process is nondisplaced and unchanged. Known nondisplaced fracture of the anterior arch of C1 is not visible on this exam. There is severe diffuse degenerative changes of the facet joints bilaterally. Soft Tissues: No prevertebral swelling. IMPRESSION: Stable alignment of the nondisplaced odontoid fracture. Known fracture of C1 is not visible on this study. Report Dictated on Electronically Signed By: pSencer Marcelino MD Electronically Signed Date/Time: 01/13/2025 10:48 PM EDT [facility] XR CHEST 1 VIEWon 01-13-2025 XR CHEST 1 VIEW Patient Name: MARJORIE GRAHAM : 1950 Exam Date/Time: 01/13/2025 22:40 Procedure: XR CHEST 1 VIEW Ordering Provider: CAREY ALEKSANDAR Reason For Exam: S/p fall, trauma evaluation. INDICATION: Fall after trauma. VIEWS: Chest AP-one image COMPARISON: None. FINDINGS: The trachea is midline. The heart is not enlarged. The right hemidiaphragm is mildly elevated. There is no confluent consolidation. IMPRESSION: No radiographic acute cardiopulmonary process. Report Dictated on Electronically Signed By: Lanie Roldan MD Electronically Signed Date/Time: 01/13/2025 11:04 PM EDT [facility] XR Cervical spine 2 or 3 Vie wson 01-13-2025 Stable alignment of the nondisplaced odontoid fracture. Known fracture of C1 is not visible on this study. Report Dictated on Electronically Signed By: Spencer Marcelino MD Electronically Signed Date/Time: 01/13/2025 10:48 PM EDT [facility] Patient Name: MARJORIE GRAHAM : 1950 Exam Date/Time: 01/13/2025 22:41 Procedure: XR CERVICAL SPINE 2-3 VIEWS Ordering Provider: CAREY ALEKSANDAR Reason For Exam: c1 and c2 fx CERVICAL SPINE SERIES CLINICAL INDICATION: Neck pain. c1 and c2 fx AP, lateral, and odontoid views of the cervical spine were obtained. COMPARISON: None. FINDINGS: Alignment: Radiograph is were obtained in a cervical collar. There is grade 1 anterolisthesis at C4-5 and C6-7. Intervertebral Disc Spaces: Moderate disc height loss with endplate spurring at C5-6. Vertebrae: Known fracture of the C2 odontoid process is nondisplaced and unchanged. Known nondisplaced fracture of the anterior arch of C1 is not visible on this exam. There is severe diffuse degenerative changes of the facet joints bilaterally. Soft Tissues: No prevertebral swelling. [facility] Spencer Marcelino M D - 01/13/2025 Patient Name: MARJORIE GRAHAM : 1950 Exam Date/Time: 01/13/2025 22:41 Procedure: XR CERVICAL SPINE 2-3 VIEWS Ordering Provider: CAREY ALEKSANDAR Reason For Exam: c1 and c2 fx CERVICAL SPINE SERIES CLINICAL INDICATION: Neck pain. c1 and c2 fx AP, lateral, and odontoid views of the cervical spine were obtained. COMPARISON: None. FINDINGS: Alignment: Radiograph is were obtained in a cervical collar. There is grade 1 anterolisthesis at C4-5 and C6-7. Intervertebral Disc Spaces: Moderate disc height loss with endplate spurring at C5-6. Vertebrae: Known fracture of the C2 odontoid process is nondisplaced and unchanged. Known nondisplaced fracture of the anterior arch of C1 is not visible on this exam. There is severe diffuse degenerative changes of the facet joints bilaterally. Soft Tissues: No prevertebral swelling. IMPRESSION: Stable alignment of the nondisplaced odontoid fracture. Known fracture of C1 is not visible on this study. Report Dictated on Electronically Signed By: Spencer Marcelino MD Electronically Signed Date/Time: 01/13/2025 10:48 PM EDT [facility] Radiology Study observation (narrative) [facility] XR Chest Single viewon 01-13 No radiographic acute cardiopulmonary process. Report Dictated on Electronically Signed By: Lanie Roldan MD Electronically Signed Date/Time: 01/13/2025 11:04 PM EDT [facility] [employer] [facility] Patient Name: [facility] : 1950 [id number] Exam Date/Time: 01/13/2025 22:40 Procedure: XR CHEST 1 VIEW Ordering Provider: CAREY ALEKSANDAR Reason For Exam: S/p fall, trauma evaluation. INDICATION: Fall after trauma. VIEWS: Chest AP-one image COMPARISON: None. FINDINGS: The trachea is midline. The heart is not enlarged. The right hemidiaphragm is mildly elevated. There is no confluent consolidation. [facility] [employer] [facility] Lanie Roldan MD - 01/13/2025 Patient Name: MARJORIE GRAHAM: 1950 Exam Date/Time: 01/13/2025 22:40 Procedure: XR CHEST 1 VIEW Ordering Provider: CAREY ALEKSANDAR Reason For Exam: S/p fall, trauma evaluation. INDICATION: Fall after trauma. VIEWS: Chest AP-one image COMPARISON: None. FINDINGS: The trachea is midline. The heart is not enlarged. The right hemidiaphragm is mildly elevated. There is no confluent consolidation. IMPRESSION: No radiographic acute cardiopulmonary process. Report Dictated on Electronically Signed By: Lanie Roldan MD Electronically Signed Date/Time: 01/13/2025 11:04 PM EDT [facility] Radiology Study observation (narrative) [facility] XR HAND 3+ VIEWS RIGHTon XR HAND 3+ VIEWS RIGHT Patient Name: MARJORIE GRAHAM : 1950 Exam Date/Time: 01/13/2025 22:40 Procedure: XR HAND 3+ VIEWS RIGHT Ordering Provider: CAREY ALEKSANDAR Reason For Exam: S/p fall, R hand pain Gender: Female Age: 74 years Exam: XR HAND 3+ VIEWS RIGHT INDICATION: Hand pain after a fall. VIEWS: Right hand PA and lateral and oblique-3 images COMPARISON: None. FINDINGS: A monitor device overlies the second digit distal phalanx, limiting evaluation. The distal radius and distal ulna are intact. The bone mineralization is decreased. The metacarpals and phalanges are intact. Degenerative changes with joint space narrowing metacarpophalangeal joint and metacarpal carpal joint first digit. Chondrocalcinosis noted. There is narrowing of the DIP joint of the second digit. IMPRESSION: 1. No acute osseous process. 2. Osteoarthritis. Report Dictated on Electronically Signed By: Lanie Roldan MD Electronically Signed Date/Time: 01/13/2025 11:09 PM EDT Normal [facility] XR Hand - right 3 Viewson 1. No acute osseous process. 2. Osteoarthritis. Report Dictated on Electronically Signed By: Lanie Roldan MD Electronically Signed Date/Time: 01/13/2025 11:09 PM EDT [facility] Patient Name: MARJORIE GRAHAM : 1950 Exam Date/Time: 01/13/2025 22:40 Procedure: XR HAND 3+ VIEWS RIGHT Ordering Provider: CAREY ALEKSANDAR Reason For Exam: S/p fall, R hand pain Gender: Female Age: 74 years Exam: XR HAND 3+ VIEWS RIGHT INDICATION: Hand pain after a fall. VIEWS: Right hand PA and lateral and oblique-3 images COMPARISON: None. FINDINGS: A monitor device overlies the second digit distal phalanx, limiting evaluation. The distal radius and distal ulna are intact. The bone mineralization is decreased. The metacarpals and phalanges are intact. Degenerative changes with joint space narrowing metacarpophalangeal joint and metacarpal carpal joint first digit. Chondrocalcinosis noted. There is narrowing of the DIP joint of the second digit. [facility] Lanie Roldan MD - 01/13/2025 Patient Name: MARJORIE GRAHAM : 1950 Exam Date/Time: 01/13/2025 22:40 Procedure: XR HAND 3+ VIEWS RIGHT Ordering Provider: CAREY ALEKSANDAR Reason For Exam: S/p fall, R hand pain Gender: Female Age: 74 years Exam: XR HAND 3+ VIEWS RIGHT INDICATION: Hand pain after a fall. VIEWS: Right hand PA and lateral and oblique-3 images COMPARISON: None. FINDINGS: A monitor device overlies the second digit distal phalanx, limiting evaluation. The distal radius and distal ulna are intact. The bone mineralization is decreased. The metacarpals and phalanges are intact. Degenerative changes with joint space narrowing metacarpophalangeal joint and metacarpal carpal joint first digit. Chondrocalcinosis noted. There is narrowing of the DIP joint of the second digit. IMPRESSION: 1. No acute osseous process. 2. Osteoarthritis. Report Dictated on Electronically Signed By: Lanie Roldan MD Electronically Signed Date/Time: 01/13/2025 11:09 PM EDT [employer] [facility] Radiology Study observation (narrative) [facility] XR Hand - right 3 ViewsOrder ed By: Lanie Roldan on 01-13-2025 [facility] Work Phone: CNOVon 12-19-2024 CNOV Office Visit (OTOLTW ) -------- MARJORIE GRAHAM ([id number]) 1950 F NFR Date Time Provider Department 12/19/24 4:15 PM MICHAEL TARIQ OTOLTW During your visit today, we recorded the following information about you: Evelio Olsen 01/14/2025 10:26 AM Signed SECTION OF RHINOLOGY, SINUS AND SKULL BASE SURGERY Head and Neck [facility] FOLLOW UP CLINIC NOTE CC: CRS HPI: Marjorie Graham is a 74 year old female seen today for CRS follow-up. Pt was last seen on 09/12/24 where nasal endoscopy demonstrated no present infection. Pt is continuing the use of Flonase and saline rinses. Pt had eye surgery for diplopia on 11/07/[address] Buckner at [facility]. Pt states that after eye surgery she is now able to see much better. States that she has had a lot of drainage and sinus headaches. SNOT-22 Nasal Score Ear/Facial Score Sleep Score Function Score Emotion Score Total Score 12/12/2024 14 0 0 4 1 19 09/05/2024 7 2 2 0 1 12 07/17/2024 8 2 4 5 2 21 PHYSICAL EXAM: GENERAL: No acute distress, calm and cooperative, alert and oriented. HEAD/FACE: Normocephalic, atraumatic, facial structures stable and symmetric. EYES: Extraocular movements intact. No ocular lesions noted. EARS: No auricular deformity noted. ORAL CAVITY/OROPHARYNX: No mucosal lesions noted, tongue/uvula midline, tonsils unremarkable. NECK: No obvious masses, full range of motion present. RESPIRATORY: Unlabored breathing on room air. Voice is strong. No stridor or other noisy breathing. NEUROLOGIC: Cranial nerves 3-12 are grossly intact. PROCEDURE NOTE: Procedure: Nasal endoscopy Indication: CRS Findings: After topical application of lidocaine and Afrin sprays for anesthesia and decongestion, rigid nasal endoscopy was performed. This revealed Sinuses are patent bilaterally. MM is clear bilaterally. No polyps. Recirculation on the left side. The patient tolerated the procedure well. ASSESSMENT: Marjorie Graham is a 74 year old female with: Recirculation on the left side PLAN: Nasal endoscopy today demonstrated recirculation on the left side Continue current nasal regimen Follow up in 6 months Medical Decision Making: Medical Decision Making Level: 1 - N/A By signing my name below, I, Evelio Olsen, attest that this documentation has been prepared under the direction and in the presence of Dr. Michael Tariq Electronically Signed, Jorge Goins December 19, 2024 10:02 AM I agree with the Chief Complaint, ROS, and Past Histories independently gathered by the clinical shipping support clerk and the remaining scribed note accurately describes my personal service to the patient. Disclosure: Dr. Tariq receives payments from [employer]/or [employer] for conducting educational activities and/or consulting. An [employer] and/or [employer] product may be used in your care. Dr. Tariq does not receive any money for products he/she or any other [facility] physicians prescribe or use. Dr. Tariq's choice on which product to use in your case was not influenced by his/her relationship with [employer]/or [employer] Your physician selected the product that in his or her hands is believed to be the best option for your treatment. Allergies As of Date: 12/19/2024 Noted Allergy Reaction ASPIRIN 12/02/2002 Comments: Tinnitus, hearing loss AD when on mary jo doses. Is able to take ASA now without any reaction. CIPROFLOXACIN 07/03/2019 4 - Hives Comments: reports hives now after completing cipro 06/23/2019 METFORMIN 06/06/2010 8 - GI Upset Comments: made her ill; stomach upset with pain and diarrhea- has taken since with no issue PENICILLINS 11/06/2002 16 - Unknown Comments: joseph SULFA (SULFONAMIDE ANTIBIOTICS) 11/06/2002 16 - Unknown Comments: joseph ZOCOR (SIMVASTATIN) 07/21/2005 Comments: myalgias Date Reviewed: 12/19/2024 Reviewed by: Jessica Smith MA - Fully Assessed Reason for Visit: Follow Up [171] Primary Visit Diagnosis:Other chronic sinusitis [J32.8] Other Visit Diagnosis:Diplopia [H53.2] Prescriptions as of 01/14/2025 - celecoxib (CELEBREX) 200 mg capsule TAKE 1 TABLET BY MOUTH ONCE A DAY WITH FOOD - dicyclomine (BENTYL) 10 mg capsule Take 1 capsule by mouth two times a day as needed. - empagliflozin (JARDIANCE) 25 mg tablet Take 1 tablet by mouth daily with breakfast. - mirabegron (MYRBETRIQ) 25 mg Tb24 Take 1 tablet by mouth once daily. - fluticasone (FLONASE) 50 mcg/actuation nasal spray Use 2 Sprays in each nostril once daily. - Blood-Glucose Meter,Continuous (FREESTYLE KISHAN 3 READER) [facility] Use to check blood sugar at least four (4) times daily. - Blood-Glucose Sensor (FREESTYLE KISHAN 3 PLUS SENSOR) [facility] Apply new sensor every fifteen (15) days to upper arm. - metFORMIN ER (GLUCOPHAGE XR) 500 mg 24 hr tablet Taking total of 4 pills per day but i (more content not included)... Normal [facility] Progress Noteon 11-13-2024 [employer] Authentication Interface Message Text Chief Complaint Patient presents with Post-op Exam History of Presenting Problem: HPI PO EOM 11/07/24 Parent states that Pt is doing well after surgery. Sleeping and eating well. Using Tobradex 3 times a day. States that she sees double when she look down. States that she cannot read through the bifocal. Last edited by Army Jacquelyn on 11/13/2024 8:27 AM. Ocular History: Ocular History Glasses Yes Refractive Error Yes Strabismus Yes Past Medical History: No past medical history unless noted below Past Medical History: Diagnosis Date Type 2 diabetes mellitus without complications No past surgical history unless noted below History reviewed. No pertinent surgical history. Review of Systems: Constitutional: Negative for fever. HENT: Negative for congestion. Respiratory: Negative for cough. Cardiovascular: Negative for chest pain. Gastrointestinal: Negative for vomiting. Genitourinary: Negative for dysuria. Musculoskeletal: Negative for neck pain. Skin: Negative for rash. Neurological: Negative for seizures and numbness Endo/Heme/Allergies: Negative for environmental allergies. Does not bruise/bleed easily. Psychiatric/Behavioral: The patient does not have insomnia. Exceptions will appear in the HPI Allergies: Allergies Allergen Reactions Sm Non-Asprin Sinus [Pseudoephedrine-Acetami nophen] Tinnitus Ciprofloxacin Hives Neomycin Swelling Pcn [Penicillins] Hives Sulfacetamide Hives Medications: Current Outpatient Medications Medication Sig Dispense Refill prednisoLONE acetate (PRED FORTE) 1 % ophthalmic suspension Instill 1 Drop into the right eye 2 times daily for 7 days 5 mL 0 OMEPRAZOLE PO Take by mouth buPROPion (WELLBUTRIN XL) 300 MG XL tablet Take by mouth daily Losartan Potassium-HCTZ (HYZAAR) 100-25 MG TABS Take by mouth rosuvastatin (CRESTOR) 10 MG tablet Take by mouth levothyroxine (SYNTHROID) 112 MCG tablet Take by mouth daily Mirabegron ER (MYRBETRIQ) 25 MG TB24 Take by mouth metFORMIN (GLUCOPHAGE-XR) 500 MG ER tablet Take by mouth cholecalciferol (VITAMIN D3) 25 mcg (1000 units) tablet Take by mouth daily Multiple Vitamins-Minerals (OCUVITE PO) Take by mouth Empagliflozin (JARDIANCE) 25 MG TABS Take by mouth celecoxib (CELEBREX) 200 MG capsule Take by mouth Takes PRN dicyclomine (BENTYL) 10 MG capsule Take by mouth Takes PRN ondansetron (ZOFRAN) 4 MG tablet Take by mouth Takes PRN No current facility-administered medications for this visit. Family Medical History: Family History Problem Relation Age of Onset Glaucoma Neg Hx Macular Degen Neg Hx Strabismus Neg Hx Amblyopia Neg Hx ChildHD Glaucoma Neg Hx Diabetes Neg Hx ChildHD Cataract Neg Hx Cataracts Neg Hx Blindness Neg Hx Social History: Social History Socioeconomic History Marital status: Spouse name: None Number of children: None Years of education: None Highest education level: None Tobacco Use Smoking status: Never Passive exposure: Never Smokeless tobacco: Never Social Drivers of Health Food Insecurity: No Food Insecurity (09/20/2024) Received from [facility] Hunger Vital Sign Worried About Running Out of Food in the Last Year: Never true Ran Out of Food in the Last Year: Never true Transportation Needs: Patient Declined (09/20/2024) Received from [facility] PRAPARE - Transportation Lack of Transportation (Medical): Patient declined Lack of Transportation (Non-Medical): Patient declined Housing Stability: Low Risk (11/14/2019) Received from [facility] Housing Stability Vital Sign Unable to Pay for Housing in the Last Year: No Number of Places Lived in the Last Year: 1 Unstable Housing in the Last Year: No History Social History Marital Status: Single Spouse Name: N/A Number of Children: N/A Years of Education: N/A Social History Main Topics Smoking status: Never Smoker Smokeless tobacco: Never Used Alcohol Use: None Drug Use: None Sexual Activity: None Exam: The patient was noted to be alert and oriented x 3 appropriate for age and medical history Physical Exam Base Eye Exam Visual Acuity (HOTV - Blocked) Dist cc Near cc Right 20/25 J7 Left 20/20 J2 Both 20/20 J5 Correction: Glasses Tonometry (I Care, 8:34 AM) Pressure Right 17 Left 17 Pupils Pupils Right PERRL Left PERRL Extraocular Movement Right Full Left Full Neuro/Psych Mood/Affect: Normal Additional Tests Stereo Fly: - Animals: 0/3 Circles: 0/9 Strabismus Exam Method: Alternate cover Correction: cc Distance Near Near +3DS N Bifocals Ortho RH(T)' 4 RX(T)' 8 0 0 0 0 0 0 0 0 0 0 0 0 0 0 0 0 Slight RHT in downgaze Slit Lamp and Fundus Exam External Exam Right Left External Normal Normal Slit Lamp Exam Right Left Lids/Lashes Normal Normal Conjunctiva/Sclera temporal injection, sutures intact White and quiet Cornea Clear Clear Anterior Chamber Verónica (more content not included)... Normal [facility] Progress Noteon 10-09-2024 [employer] Authentication Interface Message Text Chief Complaint Patient presents with Diplopia History of Presenting Problem: HPI Diplopia Disease is present since trauma. Characterized as vertical. Duration of 4 months. Occurring constantly. Occurring all the time. Associated symptoms include blurred vision and imbalance. Negative for eye pain and headaches. Context: After anesthesia . Treatments tried include glasses. Comments Wearing specs FT, covering OS helps with diplopia but patient state she feels like her eye get tired very easily, computer work makes it much worse having to use a magnifier glass. Last edited by Nadia Brennan on 10/09/2024 3:01 PM. Ocular History: Ocular History Glasses Yes Past Medical History: No past medical history unless noted below Past Medical History: Diagnosis Date Type 2 diabetes mellitus without complications No past surgical history unless noted below History reviewed. No pertinent surgical history. Review of Systems: Constitutional: Negative for fever. HENT: Negative for congestion. Respiratory: Negative for cough. Cardiovascular: Negative for chest pain. Gastrointestinal: Negative for vomiting. Genitourinary: Negative for dysuria. Musculoskeletal: Negative for neck pain. Skin: Negative for rash. Neurological: Negative for seizures and numbness Endo/Heme/Allergies: Negative for environmental allergies. Does not bruise/bleed easily. Psychiatric/Behavioral: The patient does not have insomnia. Exceptions will appear in the HPI Allergies: Allergies Allergen Reactions Sm Non-Asprin Sinus [Pseudoephedrine-Acetami nophen] Tinnitus Ciprofloxacin Hives Pcn [Penicillins] Hives Sulfacetamide Hives Medications: Current Outpatient Medications Medication Sig Dispense Refill OMEPRAZOLE PO Take by mouth buPROPion (WELLBUTRIN XL) 300 MG XL tablet Take by mouth daily Losartan Potassium-HCTZ (HYZAAR) 100-25 MG TABS Take by mouth rosuvastatin (CRESTOR) 10 MG tablet Take by mouth levothyroxine (SYNTHROID) 112 MCG tablet Take by mouth daily Mirabegron ER (MYRBETRIQ) 25 MG TB24 Take by mouth metFORMIN (GLUCOPHAGE-XR) 500 MG ER tablet Take by mouth cholecalciferol (VITAMIN D3) 25 mcg (1000 units) tablet Take by mouth daily Multiple Vitamins-Minerals (OCUVITE PO) Take by mouth Empagliflozin (JARDIANCE) 25 MG TABS Take by mouth celecoxib (CELEBREX) 200 MG capsule Take by mouth Takes PRN dicyclomine (BENTYL) 10 MG capsule Take by mouth Takes PRN ondansetron (ZOFRAN) 4 MG tablet Take by mouth Takes PRN No current facility-administered medications for this visit. Family Medical History: Family History Problem Relation Age of Onset Glaucoma Neg Hx Macular Degen Neg Hx Strabismus Neg Hx Amblyopia Neg Hx Social History: Social History Socioeconomic History Marital status: Spouse name: None Number of children: None Years of education: None Highest education level: None Tobacco Use Smoking status: Never Passive exposure: Never Smokeless tobacco: Never Social Drivers of Health Food Insecurity: No Food Insecurity (09/20/2024) Received from [facility] Hunger Vital Sign Worried About Running Out of Food in the Last Year: Never true Ran Out of Food in the Last Year: Never true Transportation Needs: Patient Declined (09/20/2024) Received from [facility] PRAPARE - Transportation Lack of Transportation (Medical): Patient declined Lack of Transportation (Non-Medical): Patient declined Housing Stability: Low Risk (11/14/2019) Received from [facility] Housing Stability Vital Sign Unable to Pay for Housing in the Last Year: No Number of Places Lived in the Last Year: 1 Unstable Housing in the Last Year: No History Social History Marital Status: Single Spouse Name: N/A Number of Children: N/A Years of Education: N/A Social History Main Topics Smoking status: Never Smoker Smokeless tobacco: Never Used Alcohol Use: None Drug Use: None Sexual Activity: None Exam: The patient was noted to be alert and oriented x 3 appropriate for age and medical history Physical Exam Base Eye Exam Visual Acuity (HOTV - Blocked) Dist cc Right 20/20 Left 20/20 Both 20/20 Tonometry ( Care, 3:09 PM) Pressure Right 19 Left 18 Pupils Pupils Right PERRL Left PERRL Visual Goodrich Right Full Left Full Extraocular Movement Right Full Left Full Neuro/Psych Mood/Affect: Normal Additional Tests Stereo Fly: - Animals: 0/3 Circles: 0/9 Double Barrientos Daniel Primary Right 5 Excyclo Left 5 Excyclo Strabismus Exam Method: Alternate cover Correction: cc Distance Near Near +3DS N Bifocals RHT' 14-16 XT' 10 0 0 0 X 2 0 0 0 RHT 2-4 0 0 RHT 10-12 0 0 RHT 12 0 0 0 RHT 18 0 0 0 R Tilt L Tilt RHT 12-14 RHT 6-8 ET 4 AHP: Left head tilt slight Slit Lamp and Fundus Exam External Exam Right Left External Normal Normal Slit Lamp Exam Right Left Lids/Lashes Dermatochal (more content not included)... Normal [facility] CNOVon 09-26-2024 CNOV Office Visit (INTMWS ) -------- MARJORIE GRAHAM ([id number]) 1950 F NFR Date Time Provider Department 09/26/24 9:40 AM FIFI GREEN INTMWS During your visit today, we recorded the following information about you: Pulse Respiration Blood pressure Weight 70/minute 16/minute 118/68 81.2 kg Height 1.59 m Fifi Green MD 10/03/2024 1:58 AM Signed Medicare Health Risk Assessment General Health Fair Exercise: Minutes/Day 50 min Exercise: Days/Week 4 days Alcohol: Daily Use Never Alcohol: Drinks/Day Patient does not drink Alcohol: 6 or more drinks Never Feel off balance Yes Concerns: Teeth/Dentures No Concerns: Sexual function No Troubled by feelings None of the above Frequency: Eating healthy diet Several days ADLs requiring help None of the above Safety precautions in home/vehicle Yes Smoke, vape, chews tobacco No Difficulty hearing No Difficulty seeing No (Getting eye surgery for left eye; right is fine) Current Providers Specialists: I have reviewed specialist-related care of the patient in the medical record. Outside specialists seen: Eye surgeon--Dr. Buckner ([facility]); Dr. Irene García (parking patroller) Medical/Family history review Reviewed and updated problem list, medical/surgical/family/ social history, medications, and allergies. Opioid use review Opioid Medications (last 90 days) No data to display Anxiety/Depression screening PHQ-9 Score: 4 (Minimal Depression) GERTRUDIS-7 Score: 4 (Minimal Anxiety) Recommendation: no further intervention at this time, continuing current treatment plan, and medication management Cognitive screening Mini Cog Score: 5 Cognitive screening reviewed and No further action needed (score 3-5). Functional Observation Was the patient's Timed Up AND Go test unsteady or >= 12 seconds? No Advance Care Planning Surrogate decision maker and/or advance care plan documented Current Outpatient Medications Medication Sig metFORMIN ER (GLUCOPHAGE XR) 500 mg 24 hr tablet Taking total of 4 pills per day but in divided doses omeprazole (PRILOSEC) 40 mg capsule Take 1 capsule by mouth once daily. predniSONE (DELTASONE) 5 mg tablet Take 1 tablet by mouth two times a day as needed. tobramycin 20 mg (CPD) Use 1 Each in the nose two times a day. Comments for compounding pharmacy: tobramycin 20mg - into 8oz saline. Perform irrigations twice daily rosuvastatin (CRESTOR) 10 mg tablet Take 1 tablet by mouth once daily. beta-carotene,A,-vits C,E/mins (OCUVITE ORAL) Take 1 capsule by mouth once daily. blood sugar diagnostic (BLOOD GLUCOSE TEST) test strip Test blood sugar(s) 1 times daily. Dx: Type 2 DM - Uncontrolled E11.65 Insulin: No Lancets Test blood suga(s) 1 times daily. Dx: Type 2 DM - Uncontrolled E11.65 Insulin: No. Also dispense a lancet pen buPROPion XL (WELLBUTRIN XL) 300 mg 24 hr tablet Take 1 tablet by mouth once daily. levothyroxine (SYNTHROID) 112 mcg tablet Take 1 tablet by mouth once daily. Take on empty stomach. For thyroid losartan-hydroCHLOROthia zide (HYZAAR) 100-25 mg per tablet Take 1 tablet by mouth once daily. ondansetron orally disintegrating (ZOFRAN ODT) 4 mg disintegrating tablet Take 1 tablet by mouth every 8 hours as needed for nausea/vomiting. scopolamine (TRANSDERM-SCOP) patch 1.5 mg/72 hr (delivers 1 mg over 3 days) Apply 1 Patch as directed every 72 hours. Apply patch to skin behind ear 4hrs prior to travel. benzonatate (TESSALON PERLES) 100 mg capsule Take 1-2 capsules by mouth three times a day as needed. albuterol (PROVENTIL) 2.5 mg /3 mL (0.083 %) nebulizer solution Use 3 mL via nebulizer every 4 hours as needed for wheezing/shortness of breath. meclizine (ANTIVERT) 25 mg tab TAKE ONE TABLET BY MOUTH EVERY 6 HOURS NEEDED FOR DIZZINESS albuterol HFA (VENTOLIN HFA) 90 mcg/actuation inhaler Inhale 2 Puffs as instructed every 4 hours as needed. hyoscyamine (LEVSIN) 0.125 mg tablet Take 0.125 mg by mouth every 6 hours as needed. phenazopyridine (PYRIDIUM) 200 mg tablet Take 1 tablet by mouth three times daily as needed. dicyclomine (BENTYL) 10 mg capsule Take 1 capsule by mouth twice daily as needed. montelukast (SINGULAIR) 10 mg tablet Take 1 tablet by mouth daily at bedtime. celecoxib (CELEBREX) 200 mg capsule TAKE 1 TABLET BY MOUTH ONCE A DAY WITH FOOD multivitamin tablet Take 1 tablet by mouth once daily. Cholecalciferol, Vitamin D3, (VITAMIN D) 1,000 unit cap Take 1 capsule by mouth once daily. cetirizine (ZYRTEC) 10 mg tablet Take 10 mg by mouth once daily. acetaminophen 500 mg tablet Take 500 mg by mouth every 6 hours as needed. empagliflozin (JARDIANCE) 25 mg tablet Take 1 tablet by mouth daily with breakfast. mirabegron (MYRBETRIQ) 25 mg Tb24 Take 1 tablet by mouth once daily. fluticasone (FLONASE) 50 mcg/actuation nasal spray Use 2 Sprays in each nostril once daily. Bl (more content not included)... Normal [facility] 09-26-2024 [facility] Telephone (INTMWS) -------- MARJORIE GRAHAM ([id number]) 1950 F NFR Date Time Provider Department 09/26/24 FIFI GREEN INTMWS During your visit today, we recorded the following information about you: Emily Garcia LPN 09/26/2024 1:53 PM Signed PA response for kishan sensors and reader is Close reason: Other Payer: [employer] [phone] Note from payer: Drug is not covered by plan View History Medication Being Authorized Blood-Glucose Sensor (FREESTYLE KISHAN 3 PLUS SENSOR) layla Apply new sensor every fifteen (15) days to upper arm. Dispense: 6 Each Refills: 4 Start: 09/26/2024 Class: Normal This order has been released to its destination. To be filled at: [facility] [place] [address] [address] [facility] [phone] Emily Garcia LPN 09/26/2024 1:54 PM Signed Close reason: Other Payer: [employer] [phone] Note from payer: Drug is not covered by plan View History Medication Being Authorized Blood-Glucose Meter,Continuous (FREESTYLE KISHAN 3 READER) misc Use to check blood sugar at least four (4) times daily. Dispense: 1 Each Refills: 0 Start: 09/26/2024 Class: Normal This order has been released to its destination. To be filled at: [place] [address] [address] [facility] [phone] Emily Garcia LPN 09/30/2024 10:04 AM Signed My chart message to pt. Allergies As of Date: 09/26/2024 Noted Allergy Reaction ASPIRIN 12/02/2002 Comments: Tinnitus, hearing loss AD when on mary jo doses. Is able to take ASA now without any reaction. CIPROFLOXACIN 07/03/2019 4 - Hives Comments: reports hives now after completing cipro 06/23/2019 METFORMIN 06/06/2010 8 - GI Upset Comments: made her ill; stomach upset with pain and diarrhea- has taken since with no issue PENICILLINS 11/06/2002 16 - Unknown Comments: hives SULFA (SULFONAMIDE ANTIBIOTICS) 11/06/2002 16 - Unknown Comments: hives ZOCOR (SIMVASTATIN) 07/21/2005 Comments: myalgias Date Reviewed: 09/26/2024 Reviewed by: Lauren Sawant LPN - Fully Assessed Reason for Visit: Insurance Authorization [[id number]] Prescriptions as of 09/30/2024 - empagliflozin (JARDIANCE) 25 mg tablet Take 1 tablet by mouth daily with breakfast. - mirabegron (MYRBETRIQ) 25 mg Tb24 Take 1 tablet by mouth once daily. - fluticasone (FLONASE) 50 mcg/actuation nasal spray Use 2 Sprays in each nostril once daily. - Blood-Glucose Meter,Continuous (FREESTYLE KISHAN 3 READER) [facility] Use to check blood sugar at least four (4) times daily. - Blood-Glucose Sensor (FREESTYLE KISHAN 3 PLUS SENSOR) layla Apply new sensor every fifteen (15) days to upper arm. - metFORMIN ER (GLUCOPHAGE XR) 500 mg 24 hr tablet Taking total of 4 pills per day but in divided doses - omeprazole (PRILOSEC) 40 mg capsule Take 1 capsule by mouth once daily. - predniSONE (DELTASONE) 5 mg tablet Take 1 tablet by mouth two times a day as needed. - tobramycin 20 mg (CPD) Use 1 Each in the nose two times a day. Comments for compounding pharmacy: tobramycin 20mg - into 8oz saline. Perform irrigations twice daily - rosuvastatin (CRESTOR) 10 mg tablet Take 1 tablet by mouth once daily. - beta-carotene,A,-vits C,E/mins (OCUVITE ORAL) Take 1 capsule by mouth once daily. - blood sugar diagnostic (BLOOD GLUCOSE TEST) test strip Test blood sugar(s) 1 times daily. Dx: Type 2 DM - Uncontrolled E11.65 Insulin: No - Lancets Test blood suga(s) 1 times daily. Dx: Type 2 DM - Uncontrolled E11.65 Insulin: No. Also dispense a lancet pen - buPROPion XL (WELLBUTRIN XL) 300 mg 24 hr tablet Take 1 tablet by mouth once daily. - levothyroxine (SYNTHROID) 112 mcg tablet Take 1 tablet by mouth once daily. Take on empty stomach. For thyroid - losartan-hydroCHLOROthia zide (HYZAAR) 100-25 mg per tablet Take 1 tablet by mouth once daily. - ondansetron orally disintegrating (ZOFRAN ODT) 4 mg disintegrating tablet Take 1 tablet by mouth every 8 hours as needed for nausea/vomiting. - scopolamine (TRANSDERM-SCOP) patch 1.5 mg/72 hr (delivers 1 mg over 3 days) Apply 1 Patch as directed every 72 hours. Apply patch to skin behind ear 4hrs prior to travel. - benzonatate (TESSALON PERLES) 100 mg capsule Take 1-2 capsules by mouth three times a day as needed. - albuterol (PROVENTIL) 2.5 mg /3 mL (0.083 %) nebulizer solution Use 3 mL via nebulizer every 4 hours as needed for wheezing/shortness of breath. - meclizine (ANTIVERT) 25 mg tab TAKE ONE TABLET BY MOUTH EVERY 6 HOURS NEEDED FOR DIZZINESS - albuterol HFA (VENTOLIN HFA) 90 mcg/actuation inhaler Inhale 2 Puffs as instructed every 4 hours as needed. - hyoscyamine (LEVSIN) 0.125 mg tablet Take 0.125 mg by mouth every 6 hours as needed. - phenazopyridine (PYRIDIUM) 200 mg tablet Take 1 tablet by mouth three times daily as needed. - d (more content not included)... Normal [facility] CBC panel Auto (Bld)on 09-20 Erythrocyte distribution width (RBC) [Ratio] 12.8 % Normal 11.5-15.0 [facility] Comment on above: Order Comment: Speci men Type: BLOOD SPECIMENOrdering Facility: [facility] Address: [address] [place] [address] Performed By: #### 5 8410-2 ####[facility] LABIA [id number] [place] [address] [place] Hematocrit (Bld) [Volume fraction] 45.8 % Normal 36.0-46.0 [facility] Comment on above: Order Comment: Speci men Type: BLOOD SPECIMENOrdering Facility: [facility] Address: [address] [place] [address] Performed By: #### 5 8410-2 ####[facility]IA [id number] [place] [address] [place] Hemoglobin (Bld) [Mass/Vol] 14.5 g/dL Normal 11.5-15.5 [facility] Comment on above: Order Comment: Speci men Type: BLOOD SPECIMENOrdering Facility: [facility] Address: [address] [place] [address] Performed By: #### 5 8410-2 ####[facility] LABIA [id number] [place] [address] [place] MCH (RBC) [Entitic mass] 27.8 pg Normal 26.0-34.0 [facility] Comment on above: Order Comment: Speci men Type: BLOOD SPECIMENOrdering Facility: [facility] Address: [address] [place] [address] Performed By: #### 5 8410-2 ####[facility] LABCLIA [id number] [place] [address] [place] MCHC (RBC) [Mass/Vol] 31.7 g/dL Normal 30.5-36.[address] [facility] Comment on above: Order Comment: Speci men Type: BLOOD SPECIMENOrdering Facility: [facility] Address: [address] [place] [address] Performed By: #### 5 8410-2 ####[facility] LABCLIA [id number] [address] [place] MCV (RBC) [Entitic vol] 87.9 fL Normal 80.0-100.0 [facility] Comment on above: Order Comment: Speci men Type: BLOOD SPECIMENOrdering Facility: [facility] Address: [address] [place] [address] Performed By: #### 5 8410-2 ####[facility]IA [id number] [address] [place] Nucleated RBC (Bld) [#/Vol] 10*3/uL Normal <0.01 [facility] Comment on above: Order Comment: Speci men Type: BLOOD SPECIMENOrdering Facility: [facility] Address: [address] [place] [address] Performed By: #### 5 8410-2 ####[facility] LABCLIA [id number] [address] [place] Platelet mean volume (Bld) [Entitic vol] 10.4 fL Normal 9.0-12.7 [facility] Comment on above: Order Comment: Speci men Type: BLOOD SPECIMENOrdering Facility: [facility] Address: [address] [place] [address] Performed By: #### 5 8410-2 ####[facility]IA [id number] [place] [address] [place] Platelets (Bld) [#/Vol] 217 10*3/uL Normal 150-400 [facility] Comment on above: Order Comment: Speci men Type: BLOOD SPECIMENOrdering Facility: [facility] Address: [address] [place] [address] Performed By: #### 5 8410-2 ####[facility]IA [id number] [place] [address] [place] RBC (Bld) [#/Vol] 5.21 10*6/uL High 3.90-5.20 [facility] Comment on above: Order Comment: Speci men Type: BLOOD SPECIMENOrdering Facility: [facility] Address: [address] [place] [address] Performed By: #### 5 8410-2 ####[facility] LABIA [id number] [place] [address] [place] WBC (Bld) [#/Vol] 6.48 10*3/uL Normal 3.70-11.00 [facility] Comment on above: Order Comment: Speci men Type: BLOOD SPECIMENOrdering Facility: [facility] Address: [address] [place] [address] Performed By: #### 5 8410-2 ####[facility] LABIA [id number] [place] [id number] [place] [facility] [place] Comprehensive metabolic 2000 panelon 09-20-2024 Albumin [Mass/Vol] 4.2 g/dL Normal 3.9-4.9 [facility] Comment on above: Order Comment: Speci men Type: BLOOD SPECIMEN Ordering Facility: [facility] Address: [address] [place] [address] Performed By: #### 2 4323-8 #### [facility] CLIA [id number] [address] [place] [id number] [place] ALP [Catalytic activity/Vol] 75 U/L Normal 34-123 [facility] Comment on above: Order Comment: Speci men Type: BLOOD SPECIMEN Ordering Facility: [facility] Address: [address] [place] [address] Performed By: #### 2 4323-8 #### [facility] CLIA [id number] [address] [place], [place] [address] [place] ALT [Catalytic activity/Vol] 17 U/L Normal 7-38 [facility] Comment on above: Order Comment: Speci men Type: BLOOD SPECIMEN Ordering Facility: [facility] Address: [address] [place] [address] Performed By: #### 2 4323-8 #### [facility] CLIA [id number] [address] [place] [address] [place] Anion gap [Moles/Vol] 11 mmol/L Normal 8-[address] [facility] Comment on above: Order Comment: Speci men Type: BLOOD SPECIMEN Ordering Facility: [facility] Address: [address] [place] [address] Performed By: #### 2 4323-8 #### [facility] CLIA [id number] [address] [place], [place] [id number] [place] AST [Catalytic activity/Vol] 19 U/L Normal 13-35 [facility] Comment on above: Order Comment: Speci men Type: BLOOD SPECIMEN Ordering Facility: [facility] Address: [address] [place], [place] [address] Performed By: #### 2 4323-8 #### [facility] CLIA [id number] [address] [place], [place] [address] [place] Bilirubin [Mass/Vol] 0.6 mg/dL Normal 0.2-1.3 [facility] Comment on above: Order Comment: Speci men Type: BLOOD SPECIMEN Ordering Facility: [facility] Address: [address] [place] [address] Performed By: #### 2 4323-8 #### [facility] CLIA [id number] [address] [place] [address] [place] Calcium [Mass/Vol] 10.3 mg/dL High 8.5-10.2 [facility] Comment on above: Order Comment: Speci men Type: BLOOD SPECIMEN Ordering Facility: [facility] Address: [address] [place] [address] Performed By: #### 2 4323-8 #### [facility] CLIA [id number] [address] [place] [address] [place] Chloride [Moles/Vol] 102 mmol/L Normal 98-107 [facility] Comment on above: Order Comment: Speci men Type: BLOOD SPECIMEN Ordering Facility: [facility] Address: [address] [place] [address] Performed By: #### 2 4323-8 #### [facility] CLIA [id number] [address] [place] [address] [place] CO2 [Moles/Vol] 28 mmol/L Normal 22-30 [facility] Comment on above: Order Comment: Speci men Type: BLOOD SPECIMEN Ordering Facility: [facility] Address: [address] [place], [place] [address] Performed By: #### 2 4323-8 #### [facility] CLIA [id number] [address] [place], [place] [address] [place] Creatinine [Mass/Vol] 0.85 mg/dL Normal 0.58-0.[address] [facility] Comment on above: Order Comment: Speci men Type: BLOOD SPECIMEN Ordering Facility: [facility] Address: [address] [place], [place] [address] Performed By: #### 2 4323-8 #### [facility] CLIA [id number] [address] [place] [address] [place] Creatinine and Glomerular filtration rate.predicted panel (S/P/Bld) 71 mL/min/1.73m??? Normal >=60 [facility] Comment on above: Order Comment: Mini molina Type: BLOOD SPECIMEN Ordering Facility: [facility] Address: [address] [place] [address] Result Comment: Josee mated Glomerular Filtration Rate (eGFR) is calculated using the 2020 CKD-EPI creatinine equation. This equation utilizes serum creatinine, sex, and age as parameters. The creatinine assay has traceable calibration to isotope dilution-mass spectrometry. Refer to KDIGO guidelines for clinical interpretation. In patients with unstable renal function, e.g. those with acute kidney injury, the eGFR may not accurately reflect actual GFR. Performed By: #### 2 4323-8 #### [facility] CLIA [id number] [address] [place] [address] [place] Glucose [Mass/Vol] 164 mg/dL High 74-99 [facility] Comment on above: Order Comment: Mini molina Type: BLOOD SPECIMEN Ordering Facility: [facility] Address: [address] [place] [address] Result Comment: The [place] Diabetes Association (ADA) provides guidance for cutoff values for fasting glucose and random glucose. The ADA defines fasting as no caloric intake for at least 8 hours. Fasting plasma glucose results between 100 to 125 mg/dL indicate increased risk for diabetes (prediabetes). Fasting plasma glucose results greater than or equal to 126 mg/dL meet the criteria for diagnosis of diabetes. In the absence of unequivocal hyperglycemia, results should be confirmed by repeat testing. In a patient with classic symptoms of hyperglycemia or hyperglycemic crisis, random plasma glucose results greater than or equal to 200 mg/dL meet the criteria for diagnosis of diabetes. Reference: Standards of Medical Care in Diabetes 2016, [place] [employer]. Diabetes Care. 2016.39(Suppl 1). Performed By: #### 2 4323-8 #### [facility] CLIA [id number] [address] [place] [address] [place] Potassium [Moles/Vol] 4.6 mmol/L Normal 3.7-5.[address] [facility] Comment on above: Order Comment: Speci men Type: BLOOD SPECIMEN Ordering Facility: [facility] Address: [address] [place] [address] Performed By: #### 2 4323-8 #### [facility] CLIA [id number] [address] [place] [address] [place] Protein [Mass/Vol] 6.7 g/dL Normal 6.3-8.0 [facility] Comment on above: Order Comment: Speci men Type: BLOOD SPECIMEN Ordering Facility: [facility] Address: [address] [place] [address] Performed By: #### 2 4323-8 #### [facility] CLIA [id number] [address] [place] [address] [place] Sodium [Moles/Vol] 141 mmol/L Normal 136-144 [facility] Comment on above: Order Comment: Speci men Type: BLOOD SPECIMEN Ordering Facility: [facility] Address: [address] [place] [address] Performed By: #### 2 4323-8 #### [facility] CLIA [id number] [address] [place] [address] [place] Urea nitrogen [Mass/Vol] 22 mg/dL High 7-21 [facility] Comment on above: Order Comment: Speci men Type: BLOOD SPECIMEN Ordering Facility: [facility] Address: [address] [place] [address] Performed By: #### 2 4323-8 #### [facility] CLIA [id number] [address] [place] [address] [place] HbA1c (Bld)on 09-20-2024 Average glucose Estimated from glycated hemoglobin (Bld) [Mass/Vol] 183 mg/dL Normal [facility] [facility] Comment on above: Order Comment: Speci men Type: BLOOD SPECIMEN Ordering Facility: [facility] Address: [address] [place] [address] Result Comment: eAG: (Estimated average glucose) is a calculated value from HgbA1c and is policy services representative of the average blood glucose level in the last 2-3 month period. Performed By: #### 2 4323-8 #### [facility] CLIA [id number] [address] [place] [address] [place] HbA1c (Bld) [Mass fraction] 8.0 % High 4.3-5.6 [facility] Comment on above: Order Comment: Speci men Type: BLOOD SPECIMEN Ordering Facility: [facility] Address: [address] [place] [address] Result Comment: Amer [place] Diabetes Association guidelines indicate that patients with HgbA1c in the range 5.7-6.4% are at increased risk for development of diabetes, and intervention by lifestyle modification may be beneficial. HgbA1c greater or equal to 6.5% is considered diagnostic of diabetes. Performed By: #### 2 4323-8 #### [facility] CLIA [id number] [address] [place] [address] [place] CNOVon 09-12-2024 CNOV Office Visit (OTOLTW ) -------- MARJORIE GRAHAM ([id number]) 1950 F NFR Date Time Provider Department 09/12/24 2:15 PM MICHAEL TARIQ OTOLTW During your visit today, we recorded the following information about you: Michael Tariq MD 10/21/2024 9:34 AM Signed SECTION OF RHINOLOGY, SINUS AND SKULL BASE SURGERY Head and Neck [facility] FOLLOW UP CLINIC NOTE CC: CRS HPI: Marjoriechicho Graham is a 74 year old female seen today for CRS follow up. Pt was last seen on 07/18/24 where nasal endoscopy demonstrated that the left ethmoid are patent no infection. Cannot see the left maxillary sinus, the right maxillary sinus is very small. Pt is using Flonase and Tobramycin rinses. Pts eye is improving but still has diplopia, can now see downward, but cannot see well to the left with the left eye. Pt saw ophthalmology on 08/13/24. Today, pt states that she still has some drainage but the Flonase has helped. CT sinus 07/29/24 IMPRESSION: Postoperative changes of bilateral ethmoidectomies with overall substantially improved extent of paranasal sinus disease relative to the 04/04/2024 exam except for small air-fluid levels in the maxillary sinuses, increased on the right and new on the left, which may reflect acute sinusitis in the appropriate clinical setting. 06/20/2024 Culture Rare Achromobacter species ! Culture Few normal respiratory aleisha Smear Result No organisms seen Smear Result No Polymorphonuclear Leukocytes Legend: ! Abnormal SNOT-22 Nasal Score Ear/Facial Score Sleep Score Function Score Emotion Score Total Score 09/05/2024 7 2 2 0 1 12 07/17/2024 8 2 4 5 2 21 PHYSICAL EXAM: GENERAL: No acute distress, calm and cooperative, alert and oriented. HEAD/FACE: Normocephalic, atraumatic, facial structures stable and symmetric. EYES: Extraocular movements intact. No ocular lesions noted. EARS: No auricular deformity noted. ORAL CAVITY/OROPHARYNX: No mucosal lesions noted, tongue/uvula midline, tonsils unremarkable. NECK: No obvious masses, full range of motion present. RESPIRATORY: Unlabored breathing on room air. Voice is strong. No stridor or other noisy breathing. NEUROLOGIC: Cranial nerves 3-12 are grossly intact. PROCEDURE NOTE: Procedure: Nasal endoscopy Indication: CRS Findings: After topical application of lidocaine and Afrin sprays for anesthesia and decongestion, rigid nasal endoscopy was performed. This revealed Sinuses are patent bilaterally. MM is clear bilaterally. No pus or polyps. The patient tolerated the procedure well. ASSESSMENT: Marjorie Graham is a 74 year old female with: S/p bilteral ESS by OSH with postop complications of diplopia and vertigo. Possible retrorbital fracture PLAN: Nasal endoscopy today demonstrated no present infection Continue using Flonase and saline rinses If discharge becomes discolored, go back on Tobramycin rinses Plan on starting antibiotic rinses 1 week before eye surgery to prevent infection Follow up after eye surgery around end of Medical Decision Making: Problems: Moderate: 2+ stable chronic illnesses Risk: Low: Low risk from testing/treatment Medical Decision Making Level: 3 - Low By signing my name below, I, Evelio Olsen, attest that this documentation has been prepared under the direction and in the presence of Dr. Michael Tariq Electronically Signed, Joreg Goins September 12, 2024 10:11 AM I agree with the Chief Complaint, ROS, and Past Histories independently gathered by the clinical shipping support clerk and the remaining scribed note accurately describes my personal service to the patient. Disclosure: Dr. Tariq receives payments from [employer]/or [employer] for conducting educational activities and/or consulting. An [employer] and/or [employer] product may be used in your care. Dr. Tariq does not receive any money for products he/she or any other [facility] physicians prescribe or use. Dr. Tariq's choice on which product to use in your case was not influenced by his/her relationship with [employer]/or [employer]. Your physician selected the product that in his or her hands is believed to be the best option for your treatment. Allergies As of Date: 09/12/2024 Noted Allergy Reaction ASPIRIN 12/02/2002 Comments: Tinnitus, hearing loss AD when on mary jo doses. Is able to take ASA now without any reaction. CIPROFLOXACIN 07/03/2019 4 - Hives Comments: reports hives now after completing cipro 06/23/2019 METFORMIN 06/06/2010 8 - GI Upset Comments: made her ill; stomach upset with pain and diarrhea- has taken since with no issue PENICILLINS 11/06/2002 16 - Unknown Comments: hives SULFA (SULFONAMIDE ANTIBIOTICS) 11/06/2002 16 - Unknown Comments: hives ZOCOR (SIMVASTATIN) 07/21/2005 Comments: myalgias Date Reviewed: 09/12/2024 Reviewed by: Alba, (more content not included)... Normal [facility]20[facility] GLADYSMARJORIE ([id number]) 1950 F NFR Date Time Provider Department 09/11/24 MICHAEL TARIQ During your visit today, we recorded the following information about you: KarsonRoseanna 09/11/2024 10:54 AM Signed Patient is scheduled for 09/12 . Allergies As of Date: 09/11/2024 Noted Allergy Reaction ASPIRIN 12/02/2002 Comments: Tinnitus, hearing loss AD when on mary jo doses. Is able to take ASA now without any reaction. CIPROFLOXACIN 07/03/2019 4 - Hives Comments: reports hives now after completing cipro 06/23/2019 METFORMIN 06/06/2010 8 - GI Upset Comments: made her ill; stomach upset with pain and diarrhea- has taken since with no issue PENICILLINS 11/06/2002 16 - Unknown Comments: joseph SULFA (SULFONAMIDE ANTIBIOTICS) 11/06/2002 16 - Unknown Comments: joseph ZOCOR (SIMVASTATIN) 07/21/2005 Comments: myalgias Date Reviewed: 07/18/2024 Reviewed by: Erica Elliott LPN - Fully Assessed Prescriptions as of 09/11/2024 - fluticasone (FLONASE) 50 mcg/actuation nasal spray Use 2 Sprays in each nostril once daily. - metFORMIN ER (GLUCOPHAGE XR) 500 mg 24 hr tablet Taking total of 4 pills per day but in divided doses - omeprazole (PRILOSEC) 40 mg capsule Take 1 capsule by mouth once daily. - empagliflozin (JARDIANCE) 25 mg tablet Take 1 tablet by mouth daily with breakfast. - mirabegron (MYRBETRIQ) 25 mg Tb24 Take 1 tablet by mouth once daily. - predniSONE (DELTASONE) 5 mg tablet Take 1 tablet by mouth two times a day as needed. - tobramycin 20 mg (CPD) Use 1 Each in the nose two times a day. Comments for compounding pharmacy: tobramycin 20mg - into 8oz saline. Perform irrigations twice daily - rosuvastatin (CRESTOR) 10 mg tablet Take 1 tablet by mouth once daily. - beta-carotene,A,-vits C,E/mins (OCUVITE ORAL) Take 1 capsule by mouth once daily. - blood sugar diagnostic (BLOOD GLUCOSE TEST) test strip Test blood sugar(s) 1 times daily. Dx: Type 2 DM - Uncontrolled E11.65 Insulin: No - Lancets Test blood suga(s) 1 times daily. Dx: Type 2 DM - Uncontrolled E11.65 Insulin: No. Also dispense a lancet pen - buPROPion XL (WELLBUTRIN XL) 300 mg 24 hr tablet Take 1 tablet by mouth once daily. - levothyroxine (SYNTHROID) 112 mcg tablet Take 1 tablet by mouth once daily. Take on empty stomach. For thyroid - losartan-hydroCHLOROthia zide (HYZAAR) 100-25 mg per tablet Take 1 tablet by mouth once daily. - ondansetron orally disintegrating (ZOFRAN ODT) 4 mg disintegrating tablet Take 1 tablet by mouth every 8 hours as needed for nausea/vomiting. - scopolamine (TRANSDERM-SCOP) patch 1.5 mg/72 hr (delivers 1 mg over 3 days) Apply 1 Patch as directed every 72 hours. Apply patch to skin behind ear 4hrs prior to travel. - benzonatate (TESSALON PERLES) 100 mg capsule Take 1-2 capsules by mouth three times a day as needed. - albuterol (PROVENTIL) 2.5 mg /3 mL (0.083 %) nebulizer solution Use 3 mL via nebulizer every 4 hours as needed for wheezing/shortness of breath. - meclizine (ANTIVERT) 25 mg tab TAKE ONE TABLET BY MOUTH EVERY 6 HOURS NEEDED FOR DIZZINESS - albuterol HFA (VENTOLIN HFA) 90 mcg/actuation inhaler Inhale 2 Puffs as instructed every 4 hours as needed. - hyoscyamine (LEVSIN) 0.125 mg tablet Take 0.125 mg by mouth every 6 hours as needed. - phenazopyridine (PYRIDIUM) 200 mg tablet Take 1 tablet by mouth three times daily as needed. - fluticasone (FLONASE) 50 mcg/actuation nasal spray Use 2 Sprays in each nostril once daily. As directed - dicyclomine (BENTYL) 10 mg capsule Take 1 capsule by mouth twice daily as needed. - montelukast (SINGULAIR) 10 mg tablet Take 1 tablet by mouth daily at bedtime. - celecoxib (CELEBREX) 200 mg capsule TAKE 1 TABLET BY MOUTH ONCE A DAY WITH FOOD - multivitamin tablet Take 1 tablet by mouth once daily. - Cholecalciferol, Vitamin D3, (VITAMIN D) 1,000 unit cap Take 1 capsule by mouth once daily. - cetirizine (ZYRTEC) 10 mg tablet Take 10 mg by mouth once daily. - acetaminophen 500 mg tablet Take 500 mg by mouth every 6 hours as needed. Problem List As Of Date 09/11/2024 Noted Resolved DYSMETABOLIC SYNDROME X [E88.810] 11/07/2002 Fibromyalgia [M79.7] PURE HYPERCHOLESTEROLEM [E78.00] Acquired hypothyroidism [E03.9] MORBID OBESITY [E66.01] 08/03/2015 Reactive depression [F32.9] Primary hypertension [I10] History of breast cancer [Z85.3] Allergic rhinitis, cause unspecified [J30.9] 10/19/2015 ESOPHAGEAL REFLUX [K21.9] 07/24/2005 Irritable bowel syndrome [K58.9] 01/24/2006 10/19/2015 Abnormal mammogram, unspecified [R92.8] 04/18/2006 10/19/2015 Periodic limb movement disorder [G47.61] 05/16/2006 10/19/2015 MASS IN NECK [R22.0, R22.1] 11/01/2007 10/19/2015 Acute gastritis without mention of hemorrhage [*08/19/2008 10/19/2015 Lump or mass in breast [N63.0] 09/02/2009 10/19/2015 Abdominal p (more content not included)... Normal 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 Is able to take ASA now without any reaction. CIPROFLOXACIN 07/03/2019 4 - Hives Comments: reports hives now after completing cipro 06/23/2019 METFORMIN 06/06/2010 8 - GI Upset Comments: made her ill; stomach upset with pain and diarrhea- has taken since with no issue PENICILLINS 11/06/2002 16 - Unknown Comments: hivalec SULFA (SULFONAMIDE ANTIBIOTICS) 11/06/2002 16 - Unknown Comments: joseph ZOCOR (SIMVASTATIN) 07/21/2005 Comments: myalgias Date Reviewed: 07/18/2024 Reviewed by: Erica Elliott LPN - Fully Assessed Prescriptions as of 09/11/2024 - fluticasone (FLONASE) 50 mcg/actuation nasal spray Use 2 Sprays in each nostril once daily. - metFORMIN ER (GLUCOPHAGE XR) 500 mg 24 hr tablet Taking total of 4 pills per day but in divided doses - omeprazole (PRILOSEC) 40 mg capsule Take 1 capsule by mouth once daily. - empagliflozin (JARDIANCE) 25 mg tablet Take 1 tablet by mouth daily with breakfast. - mirabegron (MYRBETRIQ) 25 mg Tb24 Take 1 tablet by mouth once daily. - predniSONE (DELTASONE) 5 mg tablet Take 1 tablet by mouth two times a day as needed. - tobramycin 20 mg (CPD) Use 1 Each in the nose two times a day. Comments for compounding pharmacy: tobramycin 20mg - into 8oz saline. Perform irrigations twice daily - rosuvastatin (CRESTOR) 10 mg tablet Take 1 tablet by mouth once daily. - beta-carotene,A,-vits C,E/mins (OCUVITE ORAL) Take 1 capsule by mouth once daily. - blood sugar diagnostic (BLOOD GLUCOSE TEST) test strip Test blood sugar(s) 1 times daily. Dx: Type 2 DM - Uncontrolled E11.65 Insulin: No - Lancets Test blood suga(s) 1 times daily. Dx: Type 2 DM - Uncontrolled E11.65 Insulin: No. Also dispense a lancet pen - buPROPion XL (WELLBUTRIN XL) 300 mg 24 hr tablet Take 1 tablet by mouth once daily. - levothyroxine (SYNTHROID) 112 mcg tablet Take 1 tablet by mouth once daily. Take on empty stomach. For thyroid - losartan-hydroCHLOROthia zide (HYZAAR) 100-25 mg per tablet Take 1 tablet by mouth once daily. - ondansetron orally disintegrating (ZOFRAN ODT) 4 mg disintegrating tablet Take 1 tablet by mouth every 8 hours as needed for nausea/vomiting. - scopolamine (TRANSDERM-SCOP) patch 1.5 mg/72 hr (delivers 1 mg over 3 days) Apply 1 Patch as directed every 72 hours. Apply patch to skin behind ear 4hrs prior to travel. - benzonatate (TESSALON PERLES) 100 mg capsule Take 1-2 capsules by mouth three times a day as needed. - albuterol (PROVENTIL) 2.5 mg /3 mL (0.083 %) nebulizer solution Use 3 mL via nebulizer every 4 hours as needed for wheezing/shortness of breath. - meclizine (ANTIVERT) 25 mg tab TAKE ONE TABLET BY MOUTH EVERY 6 HOURS NEEDED FOR DIZZINESS - albuterol HFA (VENTOLIN HFA) 90 mcg/actuation inhaler Inhale 2 Puffs as instructed every 4 hours as needed. - hyoscyamine (LEVSIN) 0.125 mg tablet Take 0.125 mg by mouth every 6 hours as needed. - phenazopyridine (PYRIDIUM) 200 mg tablet Take 1 tablet by mouth three times daily as needed. - fluticasone (FLONASE) 50 mcg/actuation nasal spray Use 2 Sprays in each nostril once daily. As directed - dicyclomine (BENTYL) 10 mg capsule Take 1 capsule by mouth twice daily as needed. - montelukast (SINGULAIR) 10 mg tablet Take 1 tablet by mouth daily at bedtime. - celecoxib (CELEBREX) 200 mg capsule TAKE 1 TABLET BY MOUTH ONCE A DAY WITH FOOD - multivitamin tablet Take 1 tablet by mouth once daily. - Cholecalciferol, Vitamin D3, (VITAMIN D) 1,000 unit cap Take 1 capsule by mouth once daily. - cetirizine (ZYRTEC) 10 mg tablet Take 10 mg by mouth once daily. - acetaminophen 500 mg tablet Take 500 mg by mouth every 6 hours as needed. Problem List As Of Date 08/14/2024 Noted Resolved DYSMETABOLIC SYNDROME X [E88.810] 11/07/2002 Fibromyalgia [M79.7] PURE HYPERCHOLESTEROLEM [E78.00] Acquired hypothyroidism [E03.9] MORBID OBESITY [E66.01] 08/03/2015 Reactive depression [F32.9] Primary hypertension [I10] History of breast cancer [Z85.3] Allergic rhinitis, cause unspecified [J30.9] 10/19/2015 ESOPHAGEAL REFLUX [K21.9] 07/24/2005 Irritable bowel syndrome [K58.9] 01/24/2006 10/19/2015 Abnormal mammogram, unspecified [R92.8] 04/18/2006 10/19/2015 Periodic limb movement disorder [G47.61] 05/16/2006 10/19/2015 MASS IN NECK [R22.0, R22.1] 05/ (more content not included)... Normal [facility] Progress Noteon 08-13-2024 [employer]izer [employer]acker Authentication Interface Message Text Chief Complaint Patient presents with Diplopia History of Presenting Problem: HPI Diplopia Disease is present since trauma. Characterized as vertical. Duration of 4 months. Occurring constantly. Occurring all the time. Associated symptoms include blurred vision and imbalance. Negative for eye pain and headaches. Context: After anesthesia . Treatments tried include glasses ([place] prisms). 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 Ocular History: Ocular History Glasses Yes Past Medical History: No past medical history unless noted below Past Medical History: Diagnosis Date Type 2 diabetes mellitus without complications No past surgical history unless noted below History reviewed. No pertinent surgical history. Review of Systems: Constitutional: Negative for fever. HENT: Negative for congestion. Respiratory: Negative for cough. Cardiovascular: Negative for chest pain. Gastrointestinal: Negative for vomiting. Genitourinary: Negative for dysuria. Musculoskeletal: Negative for neck pain. Skin: Negative for rash. Neurological: Negative for seizures and numbness Endo/Heme/Allergies: Negative for environmental allergies. Does not bruise/bleed easily. Psychiatric/Behavioral: The patient does not have insomnia. Exceptions will appear in the HPI Allergies: Allergies Allergen Reactions Ciprofloxacin Hives Pcn [Penicillins] Hives Sulfacetamide Hives Medications: Current Outpatient Medications Medication Sig Dispense Refill OMEPRAZOLE PO Take by mouth buPROPion (WELLBUTRIN XL) 300 MG XL tablet Take by mouth daily Losartan Potassium-HCTZ (HYZAAR) 100-25 MG TABS Take by mouth rosuvastatin (CRESTOR) 10 MG tablet Take by mouth levothyroxine (SYNTHROID) 112 MCG tablet Take by mouth daily Mirabegron ER (MYRBETRIQ) 25 MG TB24 Take by mouth metFORMIN (GLUCOPHAGE-XR) 500 MG ER tablet Take by mouth cholecalciferol (VITAMIN D3) 25 mcg (1000 units) tablet Take by mouth daily Multiple Vitamins-Minerals (OCUVITE PO) Take by mouth Empagliflozin (JARDIANCE) 25 MG TABS Take by mouth celecoxib (CELEBREX) 200 MG capsule Take by mouth Takes PRN dicyclomine (BENTYL) 10 MG capsule Take by mouth Takes PRN ondansetron (ZOFRAN) 4 MG tablet Take by mouth Takes PRN No current facility-administered medications for this visit. Family Medical History: Family History Problem Relation Age of Onset Glaucoma Neg Hx Macular Degen Neg Hx Strabismus Neg Hx Amblyopia Neg Hx Social History: Social History Socioeconomic History Marital status: Spouse name: None Number of children: None Years of education: None Highest education level: None Tobacco Use Smoking status: Never Passive exposure: Never Smokeless tobacco: Never History Social History Marital Status: Single Spouse Name: N/A Number of Children: N/A Years of Education: N/A Social History Main Topics Smoking status: Never Smoker Smokeless tobacco: Never Used Alcohol Use: None Drug Use: None Sexual Activity: None Exam: The patient was noted to be alert and oriented x 3 appropriate for age and medical history Physical Exam Base Eye Exam Visual Acuity (HOTV - Blocked) Dist cc Right 20/30 Left 20/25 Both 20/20 Correction: Glasses Tonometry (I Care, 8:26 AM) Pressure Right 18 Left 22 Pupils Pupils Right PERRL Left PERRL Extraocular Movement Right Full Left Full Neuro/Psych Mood/Affect: Normal Additional Tests Stereo Fly: - Animals: 0/3 Circles: 0/9 Strabismus Exam Method: Alternate cover Correction: cc Distance Near Near +3DS N Bifocals RHT' 16 XT' 10 0 0 0 X 2 0 0 0 RHT 2 0 0 RHT 10-12 0 0 RHT 8-10 XT flick 0 0 0 RHT 20 0 0 0 R Tilt L Tilt RHT 12 RHT 12 XT 2 AHP: Left head tilt slight Fuses in primary gaze with 12BD over OD Slit Lamp and Fundus Exam External Exam Right Left External Normal Normal Slit Lamp Exam Right Left Lids/Lashes Dermatochalasis - upper lid Dermatochalasis - upper lid Conjunctiva/Sclera White and quiet White and quiet Cornea Clear Clear Anterior Chamber Deep and quiet Deep and quiet Iris Round and reactive Round and reactive Lens Nuclear sclerosis Nuclear sclerosis Vitreous Normal Normal Refraction Wearing Rx Sphere Cylinder Deer Add Right -2.75 +0.75 147 +3.00 Left -3.00 +0.50 074 +3.00 Age: 1.3yrs Type: PAL Manifest Refraction Sphere Cylinder Deer Right -2.25 +1.00 108 Left -2.75 +0.75 067 Dry Auto Impression/Plan/Recommen dations: 1. Hypertropia of right eye SENISORIMOTOR/EXTENDED (EOM) 2. Diplopia SENISORIMOTOR/EXTENDED (EOM) 74 y.o. female with h/o sinus disease s/p bilateral endoscopic eustachian tube balloon dilation 04/01/2024, then underwent bilateral (more content not included)... Normal [facility] Daisy 08-11-2024 ALAYNA Telephone (OTOLTW) -------- MARJORIE GRAHAM ([id number]) 1950 F NFR Date Time Provider Department 08/11/24 MICHAEL TARIQ During your visit today, we recorded the following information about you: Chantelle Schultz 08/11/2024 10:59 AM Signed Marjorie is calling Michael Tariq MD today with concern regarding Patient Question. Patient's computer is still in the shop. Her appointment will need to be a phone call. Patient has been identified by name and birthdate. Duration of symptoms: N/A Person calling: self Call patient at: on cell [phone] (home) [phone] (cell) Was an appointment scheduled: No Closing statement: Symptom Call: Thank you for calling [facility], your call is very important. A nurse will call in approximately 2-4 hours during business hours. If this is an emergency, please contact 911. Deepti Ferrari RN 08/11/2024 11:07 AM Addendum This is okay. Appointment updated. Left detailed message. Allergies As of Date: 08/11/2024 Noted Allergy Reaction ASPIRIN 12/02/2002 Comments: Tinnitus, hearing loss AD when on mary jo doses. Is able to take ASA now without any reaction. CIPROFLOXACIN 07/03/2019 4 - Hives Comments: reports hives now after completing cipro 06/23/2019 METFORMIN 06/06/2010 8 - GI Upset Comments: made her ill; stomach upset with pain and diarrhea- has taken since with no issue PENICILLINS 11/06/2002 16 - Unknown Comments: hives SULFA (SULFONAMIDE ANTIBIOTICS) 11/06/2002 16 - Unknown Comments: hives ZOCOR (SIMVASTATIN) 07/21/2005 Comments: myalgias Date Reviewed: 07/18/2024 Reviewed by: Erica Elliott LPN - Fully Assessed Reason for Visit: Patient Question [4931] Prescriptions as of 08/11/2024 - fluticasone (FLONASE) 50 mcg/actuation nasal spray Use 2 Sprays in each nostril once daily. - metFORMIN ER (GLUCOPHAGE XR) 500 mg 24 hr tablet Taking total of 4 pills per day but in divided doses - omeprazole (PRILOSEC) 40 mg capsule Take 1 capsule by mouth once daily. - empagliflozin (JARDIANCE) 25 mg tablet Take 1 tablet by mouth daily with breakfast. - mirabegron (MYRBETRIQ) 25 mg Tb24 Take 1 tablet by mouth once daily. - predniSONE (DELTASONE) 5 mg tablet Take 1 tablet by mouth two times a day as needed. - tobramycin 20 mg (CPD) Use 1 Each in the nose two times a day. Comments for compounding pharmacy: tobramycin 20mg - into 8oz saline. Perform irrigations twice daily - rosuvastatin (CRESTOR) 10 mg tablet Take 1 tablet by mouth once daily. - beta-carotene,A,-vits C,E/mins (OCUVITE ORAL) Take 1 capsule by mouth once daily. - blood sugar diagnostic (BLOOD GLUCOSE TEST) test strip Test blood sugar(s) 1 times daily. Dx: Type 2 DM - Uncontrolled E11.65 Insulin: No - Lancets Test blood suga(s) 1 times daily. Dx: Type 2 DM - Uncontrolled E11.65 Insulin: No. Also dispense a lancet pen - buPROPion XL (WELLBUTRIN XL) 300 mg 24 hr tablet Take 1 tablet by mouth once daily. - levothyroxine (SYNTHROID) 112 mcg tablet Take 1 tablet by mouth once daily. Take on empty stomach. For thyroid - losartan-hydroCHLOROthia zide (HYZAAR) 100-25 mg per tablet Take 1 tablet by mouth once daily. - ondansetron orally disintegrating (ZOFRAN ODT) 4 mg disintegrating tablet Take 1 tablet by mouth every 8 hours as needed for nausea/vomiting. - scopolamine (TRANSDERM-SCOP) patch 1.5 mg/72 hr (delivers 1 mg over 3 days) Apply 1 Patch as directed every 72 hours. Apply patch to skin behind ear 4hrs prior to travel. - benzonatate (TESSALON PERLES) 100 mg capsule Take 1-2 capsules by mouth three times a day as needed. - albuterol (PROVENTIL) 2.5 mg /3 mL (0.083 %) nebulizer solution Use 3 mL via nebulizer every 4 hours as needed for wheezing/shortness of breath. - meclizine (ANTIVERT) 25 mg tab TAKE ONE TABLET BY MOUTH EVERY 6 HOURS NEEDED FOR DIZZINESS - albuterol HFA (VENTOLIN HFA) 90 mcg/actuation inhaler Inhale 2 Puffs as instructed every 4 hours as needed. - hyoscyamine (LEVSIN) 0.125 mg tablet Take 0.125 mg by mouth every 6 hours as needed. - phenazopyridine (PYRIDIUM) 200 mg tablet Take 1 tablet by mouth three times daily as needed. - fluticasone (FLONASE) 50 mcg/actuation nasal spray Use 2 Sprays in each nostril once daily. As directed - dicyclomine (BENTYL) 10 mg capsule Take 1 capsule by mouth twice daily as needed. - montelukast (SINGULAIR) 10 mg tablet Take 1 tablet by mouth daily at bedtime. - celecoxib (CELEBREX) 200 mg capsule TAKE 1 TABLET BY MOUTH ONCE A DAY WITH FOOD - multivitamin tablet Take 1 tablet by mouth once daily. - Cholecalciferol, Vitamin D3, (VITAMIN D) 1,000 unit cap Take 1 capsule by mouth once daily. - cetirizine (ZYRTEC) 10 mg tablet Take 10 mg by mouth once daily. - acetaminophen 500 mg tablet Take 500 mg by mouth every 6 hours as needed. Problem List As O (more content not included)... Normal [facility] CT SINUS WO IVCONon 07-29-19 CT SINUS WO IVCON * * *Final Report* * * DATE OF EXAM: Jul 29 2024 10:51AM [facility] [id number] - CT SINUS WO IVCON / PROCEDURE REASON: Other chronic sinusitis * * * * Physician Interpretation * * * * EXAMINATION: CT SINUS WO IVCON Clinical history: As provided by the ordering clinician via order question entries: Sinusitis, chronic or recurrent, pt has diplopia since sinus surgery by outside provider. Other chronic sinusitis. Ct sinus stereo without contrast. Stated history: Hx diplopia since surg. TECHNIQUE: Spiral high resolution axial unenhanced CT images were obtained through the paranasal sinuses with sagittal, coronal reconstructions. M: CTSI_1 Dose-Length Product (DLP): 148 mGy*cm. CT Dose Reduction Employed: Automated exposure control (AEC) and iterative recon Comparison: Imported 04/04/[address] RESULT: Post-Surgical Findings: Interval postoperative changes of bilateral ethmoidectomies. Sinus Chambers: Underpneumatized left frontal sinus. No more than trace mucosal thickening along the right frontal sinus drainage pathway measuring less than 2 mm in thickness. Minimal mucosal thickening along the residual ethmoid air cell margins anteriorly and posteriorly measuring just over 2 mm in maximal thickness. Clear sphenoid sinuses. Air-fluid levels in the bilateral maxillary sinuses on the right greater than left. Additional adjacent mucous attention cyst or polyp formation along the lateral margin of the right maxillary sinus. Minimal mucosal thickening in the left greater than right maxillary sinuses otherwise. No mucoperiosteal thickening. Relative to the prior examination there is substantially improved appearance of previously seen opacity along the right frontal sinus drainage pathway, heterogenous material and mucosal thickening throughout the ethmoid air cells, and mild mucosal thickening in the bilateral sphenoid sinuses. See below for Siria Aubrey score for degree of sinus opacification. 0 is less than 2mm thickness of mucosal thickening. 1 is partial opacification. 2 is almost complete or complete opacification. *The ostiomeatal complex is assigned a score of either 0 (not obstructed) or 2 (obstructed). Air Fluid Levels: Air-fluid levels in the right greater than left maxillary sinuses which may reflect acute sinusitis in the appropriate clinical setting. High attenuation sinus disease: There is no high attenuation sinus disease. Left Frontal Sinus: 0 Left Anterior Ethmoid Air Cells: 1 Left Posterior Ethmoid Air Cells: 1 Left Sphenoid Sinus: 0 Left Maxillary Sinus: 1 Left Ostiomeatal Complex: 0 LEFT [place] Noble Score: 3 Right Frontal Sinus: 0 Right Anterior Ethmoid Air Cells: 1 Right Posterior Ethmoid Air Cells: 1 Right Sphenoid Sinus: 0 Right Maxillary Sinus: 1 Right Ostiomeatal Complex: 0 RIGHT Siria Aubrey Score: 3 TOTAL Siria Noble Score: 6 Nasal Cavities: Patent nasal passages with minimal opacity along the inferior margin of the left inferior nasal turbinate. Intact nasal septum with predominantly midline positioning. Other: The visualized mastoid air cells and middle ear cavities are clear. The soft tissues of the face and orbits are within normal limits within the limitations of the study. Welfare Service Aide (topogram) images: Noncontributory IMPRESSION: Postoperative changes of bilateral ethmoidectomies with overall substantially improved extent of paranasal sinus disease relative to the 04/04/2024 exam except for small air-fluid levels in the maxillary sinuses, increased on the right and new on the left, which may reflect acute sinusitis in the appropriate clinical setting. [employer]: SHAHLA Transcribe Date/Time: Jul 29 2024 1:32P Dictated by : KISHOR MCKEE MD This examination was interpreted and the report reviewed and electronically signed by: KISHOR MCKEE MD on Jul 29 2024 1:43PM EST [id number] Normal [facility] CT Sinuses WO contraston IMPRESSION: Postoperative changes of bilateral ethmoidectomies with overall substantially improved extent of paranasal sinus disease relative to the 04/04/2024 exam except for small air-fluid levels in the maxillary sinuses, increased on the right and new on the left, which may reflect acute sinusitis in the appropriate clinical setting. [facility] Heater: [facility] Transcribe Date/Time: Jul 29 2024 1:32P Dictated by : KISHOR MCKEE MD This examination was interpreted and the report reviewed and electronically signed by: KISHOR MCKEE MD on Jul 29 2024 1:43PM EST DIVISION OF RADIOLOGY * * *Final Report* * * DATE OF EXAM: Jul 29 2024 10:51AM [facility] [id number] - CT SINUS WO IVCON / PROCEDURE REASON: Other chronic sinusitis * * * * Physician Interpretation * * * * EXAMINATION: CT SINUS WO IVCON Clinical history: As provided by the ordering clinician via order question entries: Sinusitis, chronic or recurrent, pt has diplopia since sinus surgery by outside provider. Other chronic sinusitis. Ct sinus stereo without contrast. Stated history: Hx diplopia since surg. TECHNIQUE: Spiral high resolution axial unenhanced CT images were obtained through the paranasal sinuses with sagittal, coronal reconstructions. M: CTSI_1 Dose-Length Product (DLP): 148 mGy*cm. CT Dose Reduction Employed: Automated exposure control (AEC) and iterative recon Comparison: Imported 04/04/[address] RESULT: Post-Surgical Findings: Interval postoperative changes of bilateral ethmoidectomies. Sinus Chambers: Underpneumatized left frontal sinus. No more than trace mucosal thickening along the right frontal sinus drainage pathway measuring less than 2 mm in thickness. Minimal mucosal thickening along the residual ethmoid air cell margins anteriorly and posteriorly measuring just over 2 mm in maximal thickness. Clear sphenoid sinuses. Air-fluid levels in the bilateral maxillary sinuses on the right greater than left. Additional adjacent mucous attention cyst or polyp formation along the lateral margin of the right maxillary sinus. Minimal mucosal thickening in the left greater than right maxillary sinuses otherwise. No mucoperiosteal thickening. Relative to the prior examination there is substantially improved appearance of previously seen opacity along the right frontal sinus drainage pathway, heterogenous material and mucosal thickening throughout the ethmoid air cells, and mild mucosal thickening in the bilateral sphenoid sinuses. See below for [place] Noble score for degree of sinus opacification. 0 is less than 2mm thickness of mucosal thickening. 1 is partial opacification. 2 is almost complete or complete opacification. *The ostiomeatal complex is assigned a score of either 0 (not obstructed) or 2 (obstructed). Air Fluid Levels: Air-fluid levels in the right greater than left maxillary sinuses which may reflect acute sinusitis in the appropriate clinical setting. High attenuation sinus disease: There is no high attenuation sinus disease. Left Frontal Sinus: 0 Left Anterior Ethmoid Air Cells: 1 Left Posterior Ethmoid Air Cells: 1 Left Sphenoid Sinus: 0 Left Maxillary Sinus: 1 Left Ostiomeatal Complex: 0 LEFT Siria Noble Score: 3 Right Frontal Sinus: 0 Right Anterior Ethmoid Air Cells: 1 Right Posterior Ethmoid Air Cells: 1 Right Sphenoid Sinus: 0 Right Maxillary Sinus: 1 Right Ostiomeatal Complex: 0 RIGHT Siria Noble Score: 3 TOTAL [place] Noble Score: 6 Nasal Cavities: Patent nasal passages with minimal opacity along the inferior margin of the left inferior nasal turbinate. Intact nasal septum with predominantly midline positioning. Other: The visualized mastoid air cells and middle ear cavities are clear. The soft tissues of the face and orbits are within normal limits within the limitations of the study. Welfare Service Aide (topogram) images: Noncontributory DIVISION OF RADIOLOGY Provider, [facility] - 07/29/2024 * * *Final Report* * * DATE OF EXAM: Jul 29 2024 10:51AM [facility] [id number] - CT SINUS WO IVCON / PROCEDURE REASON: Other chronic sinusitis * * * * Physician Interpretation * * * * EXAMINATION: CT SINUS WO IVCON Clinical history: As provided by the ordering clinician via order question entries: Sinusitis, chronic or recurrent, pt has diplopia since sinus surgery by outside provider. Other chronic sinusitis. Ct sinus stereo without contrast. Stated history: Hx diplopia since surg. TECHNIQUE: Spiral high resolution axial unenhanced CT images were obtained through the paranasal sinuses with sagittal, coronal reconstructions. M: CTSI_1 Dose-Length Product (DLP): 148 mGy*cm. CT Dose Reduction Employed: Automated exposure control (AEC) and iterative recon Comparison: Imported 04/04/[address] RESULT: Post-Surgical Findings: Interval postoperative changes of bilateral ethmoidectomies. Sinus Chambers: Underpneumatized left frontal sinus. No more than trace mucosal thickening along the right frontal sinus drainage pathway measuring less than 2 mm in thickness. Minimal mucosal thickening along the residual ethmoid air cell margins anteriorly and posteriorly measuring just over 2 mm in maximal thickness. Clear sphenoid sinuses. Air-fluid levels in the bilateral maxillary sinuses on the right greater than left. Additional adjacent mucous attention cyst or polyp formation along the lateral margin of the right maxillary sinus. Minimal mucosal thickening in the left greater than right maxillary sinuses otherwise. No mucoperiosteal thickening. Relative to the prior examination there is substantially improved appearance of previously seen opacity along the right frontal sinus drainage pathway, heterogenous material and mucosal thickening throughout the ethmoid air cells, and mild mucosal thickening in the bilateral sphenoid sinuses. See below for Siria Noble score for degree of sinus opacification. 0 is less than 2mm thickness of mucosal thickening. 1 is partial opacification. 2 is almost complete or complete opacification. *The ostiomeatal complex is assigned a score of either 0 (not obstructed) or 2 (obstructed). Air Fluid Levels: Air-fluid levels in the right greater than left maxillary sinuses which may reflect acute sinusitis in the appropriate clinical setting. High attenuation sinus disease: There is no high attenuation sinus disease. Left Frontal Sinus: 0 Left Anterior Ethmoid Air Cells: 1 Left Posterior Ethmoid Air Cells: 1 Left Sphenoid Sinus: 0 Left Maxillary Sinus: 1 Left Ostiomeatal Complex: 0 LEFT [place] Aubrey Score: 3 Right Frontal Sinus: 0 Right Anterior Ethmoid Air Cells: 1 Right Posterior Ethmoid Air Cells: 1 Right Sphenoid Sinus: 0 Right Maxillary Sinus: 1 Right Ostiomeatal Complex: 0 RIGHT Birmingham Aubrey Score: 3 TOTAL [place] Noble Score: 6 Nasal Cavities: Patent nasal passages with minimal opacity along the inferior margin of the left inferior nasal turbinate. Intact nasal septum with predominantly midline positioning. Other: The visualized mastoid air cells and middle ear cavities are clear. The soft tissues of the face and orbits are within normal limits within the limitations of the study. Welfare Service Aide (topogram) images: Noncontributory IMPRESSION IMPRESSION: Postoperative changes of bilateral ethmoidectomies with overall substantially improved extent of paranasal sinus disease relative to the 04/04/2024 exam except for small air-fluid levels in the maxillary sinuses, increased on the right and new on the left, which may reflect acute sinusitis in the appropriate clinical setting. Forge Heater: PSCB Transcribe Date/Time: Jul 29 2024 1:32P Dictated by : KISHOR MCKEE MD This examination was interpreted and the report reviewed and electronically signed by: KISHOR MCKEE MD on Jul 29 2024 1:43PM [facility] Radiology Study observation (narrative) [facility] CT Sinuses WO contrastOrdere d By: [facility] Provider on 07-29-2024 [facility] CNOVon 07-18-2024 CNOV Office Visit (OTOLTW ) -------- MARJORIE GRAHAM ([id number]) 1950 F NFR Date Time Provider Department 07/18/24 11:45 AM MICHAEL TARIQ OTOLTW During your visit today, we recorded the following information about you: Michael Tariq MD 08/08/2024 2:14 PM Signed SECTION OF RHINOLOGY, SINUS AND SKULL BASE SURGERY Head and Neck [facility] FOLLOW UP CLINIC NOTE CC: follow up HPI: Marjorie Merida Gladys is a 74 year old female seen today for CRS follow up. Pt was last seen on 06/20/24 where nasal endoscopy demonstrated the left side is very swollen over the medial orbital area and crusting which was cultured. CT sinus image reports have been uploaded to [facility]. Pt is using Flonase and Tobramycin rinses. Pts eye is improving but still has diplopia, can now see downward, but cannot see well to the left with the left eye. Pt does have an appt with ophthalmology coming up. 06/20/2024 Culture Rare Achromobacter species ! Culture Few normal respiratory aleisha Smear Result No organisms seen Smear Result No Polymorphonuclear Leukocytes Legend: ! Abnormal SNOT-22 Nasal Score Ear/Facial Score Sleep Score Function Score Emotion Score Total Score 07/17/2024 8 2 4 5 2 21 PHYSICAL EXAM: GENERAL: No acute distress, calm and cooperative, alert and oriented. HEAD/FACE: Normocephalic, atraumatic, facial structures stable and symmetric. EYES: Extraocular movements intact. No ocular lesions noted. RESPIRATORY: Unlabored breathing on room air. Voice is strong. No stridor or other noisy breathing. NEUROLOGIC: Cranial nerves 3-12 are grossly intact. PROCEDURE NOTE: Procedure: Nasal endoscopy Indication: s/p diplopia after sinus surgery at OSH Findings: After topical application of lidocaine and Afrin sprays for anesthesia and decongestion, rigid nasal endoscopy was performed. This revealed on the left the ethmoid are patent no infection. Cannot see the left maxillary sinus, the right maxillary sinus is very small. The patient tolerated the procedure well. ASSESSMENT: Marjorie Graham is a 74 year old female with: S/p bilteral ESS by OSH with postop complications of diplopia and vertigo. Possible retrorbital fracture PLAN: Nasal endoscopy today demonstrated that there is Will get new CT sinus scan to see what is going on with the sinuses and orbits Continue tobramycin nasal rinse bid Go back on flonase Medical Decision Making: Problems: Moderate: 1+ chronic illnesses with change Data: Unique test(s) ordered: 1 Risk: Moderate: Drug management Medical Decision Making Level: 4 - Moderate By signing my name below, I, Evelio Olsen, attest that this documentation has been prepared under the direction and in the presence of Dr. Michael Tariq Electronically Signed, Jorge Goins July 18, 2024 8:53 AM I agree with the Chief Complaint, ROS, and Past Histories independently gathered by the clinical shipping support clerk and the remaining scribed note accurately describes my personal service to the patient. Disclosure: Dr. Tariq receives payments from [employer] and/or [employer] for conducting educational activities and/or consulting. An [employer] and/or [employer] product may be used in your care. Dr. Tariq does not receive any money for products he/she or any other [facility] physicians prescribe or use. Dr. Tariq's choice on which product to use in your case was not influenced by his/her relationship with [facility] and/or [employer] Your physician selected the product that in his or her hands is believed to be the best option for your treatment. Allergies As of Date: 07/18/2024 Noted Allergy Reaction ASPIRIN 12/02/2002 Comments: Tinnitus, hearing loss AD when on mary jo doses. Is able to take ASA now without any reaction. CIPROFLOXACIN 07/03/2019 4 - Hives Comments: reports hives now after completing cipro 06/23/2019 METFORMIN 06/06/2010 8 - GI Upset Comments: made her ill; stomach upset with pain and diarrhea- has taken since with no issue PENICILLINS 11/06/2002 16 - Unknown Comments: hives SULFA (SULFONAMIDE ANTIBIOTICS) 11/06/2002 16 - Unknown Comments: joseph ZOCOR (SIMVASTATIN) 07/21/2005 Comments: myalgias Date Reviewed: 07/18/2024 Reviewed by: Eirca Elliott LPN - Fully Assessed Reason for Visit: Follow Up [171] Primary Visit Diagnosis:Other chronic sinusitis [J32.8] Other Visit Diagnosis:Diplopia [H53.2] Order(s):fluticasone (FLONASE) 50 mcg/actuation nasal sprayUse 2 Sprays in each nostril once daily.Disp: 48 gRfl: 3 CT SINUS WO IVCON [[id number]] Order #: [id number] FUTURE Prescriptions as of 08/08/2024 - fluticasone (FLONASE) 50 mcg/actuation nasal spray Use 2 Sprays in each nostril once daily. - metFORMIN ER (GLUCOPHAGE XR) 500 mg 24 hr tablet Taking total of 4 pills per day but in divided doses - omeprazole (PRILOSEC) (more content not included)... Normal [facility] 07-09-2024 [facility] Telephone (HNQ) -------- MARJORIE GRAHAM ([id number]) 1950 F NFR Date Time Provider Department 07/09/24 MICHAEL TARIQ During your visit today, we recorded the following information about you: Roseanna Ty 07/09/2024 7:32 AM Signed Patient is scheduled as recommended . Allergies As of Date: 07/09/2024 Noted Allergy Reaction ASPIRIN 12/02/2002 Comments: Tinnitus, hearing loss AD when on mary jo doses. Is able to take ASA now without any reaction. CIPROFLOXACIN 07/03/2019 4 - Hives Comments: reports hives now after completing cipro 06/23/2019 METFORMIN 06/06/2010 8 - GI Upset Comments: made her ill; stomach upset with pain and diarrhea- has taken since with no issue PENICILLINS 11/06/2002 16 - Unknown Comments: joseph SULFA (SULFONAMIDE ANTIBIOTICS) 11/06/2002 16 - Unknown Comments: joseph ZOCOR (SIMVASTATIN) 07/21/2005 Comments: myalgias Date Reviewed: 06/27/2024 Reviewed by: Nelli Abdul LPN - Fully Assessed Reason for Visit: Patient Update [1234] Prescriptions as of 07/09/2024 - empagliflozin (JARDIANCE) 25 mg tablet Take 1 tablet by mouth daily with breakfast. - mirabegron (MYRBETRIQ) 25 mg Tb24 Take 1 tablet by mouth once daily. - predniSONE (DELTASONE) 5 mg tablet Take 1 tablet by mouth two times a day as needed. - tobramycin 20 mg (CPD) Use 1 Each in the nose two times a day. Comments for compounding pharmacy: tobramycin 20mg - into 8oz saline. Perform irrigations twice daily - rosuvastatin (CRESTOR) 10 mg tablet Take 1 tablet by mouth once daily. - beta-carotene,A,-vits C,E/mins (OCUVITE ORAL) Take 1 capsule by mouth once daily. - blood sugar diagnostic (BLOOD GLUCOSE TEST) test strip Test blood sugar(s) 1 times daily. Dx: Type 2 DM - Uncontrolled E11.65 Insulin: No - Lancets Test blood suga(s) 1 times daily. Dx: Type 2 DM - Uncontrolled E11.65 Insulin: No. Also dispense a lancet pen - buPROPion XL (WELLBUTRIN XL) 300 mg 24 hr tablet Take 1 tablet by mouth once daily. - levothyroxine (SYNTHROID) 112 mcg tablet Take 1 tablet by mouth once daily. Take on empty stomach. For thyroid - losartan-hydroCHLOROthia zide (HYZAAR) 100-25 mg per tablet Take 1 tablet by mouth once daily. - ondansetron orally disintegrating (ZOFRAN ODT) 4 mg disintegrating tablet Take 1 tablet by mouth every 8 hours as needed for nausea/vomiting. - scopolamine (TRANSDERM-SCOP) patch 1.5 mg/72 hr (delivers 1 mg over 3 days) Apply 1 Patch as directed every 72 hours. Apply patch to skin behind ear 4hrs prior to travel. - benzonatate (TESSALON PERLES) 100 mg capsule Take 1-2 capsules by mouth three times a day as needed. - albuterol (PROVENTIL) 2.5 mg /3 mL (0.083 %) nebulizer solution Use 3 mL via nebulizer every 4 hours as needed for wheezing/shortness of breath. - meclizine (ANTIVERT) 25 mg tab TAKE ONE TABLET BY MOUTH EVERY 6 HOURS NEEDED FOR DIZZINESS - albuterol HFA (VENTOLIN HFA) 90 mcg/actuation inhaler Inhale 2 Puffs as instructed every 4 hours as needed. - hyoscyamine (LEVSIN) 0.125 mg tablet Take 0.125 mg by mouth every 6 hours as needed. - metFORMIN ER (GLUCOPHAGE XR) 500 mg 24 hr tablet Taking total of 4 pills per day but in divided doses - omeprazole (PRILOSEC) 40 mg capsule Take 1 capsule by mouth once daily. - phenazopyridine (PYRIDIUM) 200 mg tablet Take 1 tablet by mouth three times daily as needed. - fluticasone (FLONASE) 50 mcg/actuation nasal spray Use 2 Sprays in each nostril once daily. As directed - dicyclomine (BENTYL) 10 mg capsule Take 1 capsule by mouth twice daily as needed. - montelukast (SINGULAIR) 10 mg tablet Take 1 tablet by mouth daily at bedtime. - celecoxib (CELEBREX) 200 mg capsule TAKE 1 TABLET BY MOUTH ONCE A DAY WITH FOOD - multivitamin tablet Take 1 tablet by mouth once daily. - Cholecalciferol, Vitamin D3, (VITAMIN D) 1,000 unit cap Take 1 capsule by mouth once daily. - cetirizine (ZYRTEC) 10 mg tablet Take 10 mg by mouth once daily. - acetaminophen 500 mg tablet Take 500 mg by mouth every 6 hours as needed. Problem List As Of Date 07/09/2024 Noted Resolved DYSMETABOLIC SYNDROME X [E88.810] 11/07/2002 Fibromyalgia [M79.7] PURE HYPERCHOLESTEROLEM [E78.00] Acquired hypothyroidism [E03.9] MORBID OBESITY [E66.01] 08/03/2015 Reactive depression [F32.9] Primary hypertension [I10] History of breast cancer [Z85.3] Allergic rhinitis, cause unspecified [J30.9] 10/19/2015 ESOPHAGEAL REFLUX [K21.9] 07/24/2005 Irritable bowel syndrome [K58.9] 01/24/2006 10/19/2015 Abnormal mammogram, unspecified [R92.8] 04/18/2006 10/19/2015 Periodic limb movement disorder [G47.61] 05/16/2006 10/19/2015 MASS IN NECK [R22.0, R22.1] 11/01/2007 10/19/2015 Acute gastritis without mention of hemorrhage [*08/19/2008 10/19/2015 Lump or mass in breast [N63.0] 09/02/2009 10/19/2015 Abdominal pain, epigastric [R10.13] 09/02/2010 06/13/2014 (more content not included)... Normal [facility] SCREENINGon 06-30-2024 [facility] SCREENING * * *Final Report* * * DATE OF EXAM: Jun 30 2024 2:05PM [facility] 0581 - [facility] SCREENING / PROCEDURE REASON: Encounter for screening mammogram for breast cancer * * * * Physician Interpretation * * * * RESULT: [address] [address] #[id number] - [facility] SCREENING HISTORY: Patient is 73 years old and is seen for screening and is asymptomatic in both breasts. The patient has a history of left breast cancer. COMPARISON STUDIES: The present examination has been compared to prior imaging studies dated 12/03/2017 (mammogram), 01/21/2019 (mammogram), 06/11/2020 (mammogram), 06/07/2021 (mammogram) and 06/15/2022 (mammogram). MAMMOGRAM TECHNIQUE: The study was acquired using full field digital technology and interpreted from soft copy. Computer-aided detection was utilized by the radiologist in the interpretation of this examination. MAMMOGRAM FINDINGS: The breast is heterogeneously dense, which may obscure small masses. There are no significant interval changes. Stable right biopsy clips. Left mastectomy No suspicious masses, calcifications or other abnormalities are seen in the right breast. IMPRESSION: There is no mammographic evidence of malignancy. Routine screening mammogram is recommended. Annual mammogram will be due in 1 year. BI-RADS Category 2: Benign Interpreting Radiologist: Raymundo Hernandez M.D. Electronically signed on: 07/02/2024 Forge Heater: SHARON Transcribe Date/Time: Jun 30 2024 1:52P Dictated by: RAYMUNDO HERNANDEZ MD This examination was interpreted and the report reviewed and electronically signed by: RAYMUNDO HERNANDEZ MD on Jul 02 2024 8:24PM EST [id number] Normal [facility] CNOVon 06-27-2024 CNOV Office Visit (INTMWS ) -------- ELTONNITOMARJORIE ([id number]) 1950 F NFR Date Time Provider Department 06/27/24 3:40 PM FIFI GREEN INTMWS During your visit today, we recorded the following information about you: Temperature Pulse Respiration Blood pressure 97.3 degrees 74/minute 16/minute 118/72 Weight 82.3 kg Fifi Green MD 07/28/2024 12:47 AM Addendum This note was created using NoteWriter. Subjective SUBJECTIVE: Marjoriechicho Graham is a 73 year old year old lady here today for 3 month follow up appointment for review of medical conditions. - Saw Dr. García - On tobramicin to treat sinus/ethmoid region - Hoping that if infection clears the eye will heal more quickly - Still seeing double vision Fibro - 2 flare-ups - needs something to get through them, couldn't walk, extreme pain - Celebrex not currently helping - Out of tylenol 3s and steroids T2D - Jardiance - helping but wouldn't let her refill it until she saw you Bladder - Myrbetric helping but also wouldn't fill till she came in Thyroid - stable, doing well, taking medications as prescribed HTN - stable, doing well, taking medications as prescribed Marjorie Graham is a 73-year-old female with a history of fibromyalgia, DM, and recent orbital infection, presenting for medication refills and management of fibromyalgia flare-ups. Marjorie reports a recent severe fibromyalgia flare-up that was not alleviated by her current Celebrex 200 mg daily regimen. She used leftover Tylenol #3 and prednisone 20 mg (cut into 10 mg doses) from a previous prescription, which provided relief. She still has approximately 8-10 tablets of each medication remaining. The flare-up lasted about 3 days, during which she took Tylenol #3 twice daily. She denies current issues with sleep and is able to maintain adequate hydration and nutrition. She also requests refills for Myrbetriq and Jardiance. She is tolerating Jardiance well and reports that it has been effective in managing her blood glucose levels. Her most recent HbA1c in May showed improvement but remains elevated due to a current orbital infection. She denies any recent adjustments to her Jardiance dosage. Marjorie is currently under the care of Dr. Irene García for an orbital infection and has been prescribed a topical antibiotic, which she started today. She reports difficulty with depth perception and is not driving due to the infection. She was also seen by Dr. Benitez in [place] on Sunday. She denies any recent episodes of vertigo and reports that her sleep is not currently affected. She recently recovered from a stomach flu that occurred on . PAST MEDICAL HISTORY Diagnosis Date Abdominal pain, epigastric Abdominal pain, left lower quadrant Acute gastritis without mention of hemorrhage Allergic rhinitis, cause unspecified Allergic rhinitis Diaphragmatic hernia without mention of obstruction or gangrene DM type 2 (diabetes mellitus, type 2) ([facility]) Esophageal reflux 07/24/2005 Esophagitis, unspecified Intestinal disaccharidase deficiencies and disaccharide malabsorption Malignant neoplasm of breast (female), unspecified site 07/02/1985 Breast cancer Morbid obesity (HCC) Myalgia and myositis, unspecified Obesity (BMI 30-39.9) Pure hypercholesterolemia Unspecified constipation Unspecified essential hypertension Unspecified hypothyroidism Unspecified sinusitis (chronic) Chronic sinusitis Urge incontinence of urine Current Outpatient Medications Medication Sig tobramycin 20 mg (CPD) Use 1 Each in the nose two times a day. Comments for compounding pharmacy: tobramycin 20mg - into 8oz saline. Perform irrigations twice daily rosuvastatin (CRESTOR) 10 mg tablet Take 1 tablet by mouth once daily. beta-carotene,A,-vits C,E/mins (OCUVITE ORAL) Take 1 capsule by mouth once daily. empagliflozin (JARDIANCE) 10 mg tablet Take 1 tablet by mouth once daily. Take 1 tablet once daily in the morning blood sugar diagnostic (BLOOD GLUCOSE TEST) test strip Test blood sugar(s) 1 times daily. Dx: Type 2 DM - Uncontrolled E11.65 Insulin: No Lancets Test blood suga(s) 1 times daily. Dx: Type 2 DM - Uncontrolled E11.65 Insulin: No. Also dispense a lancet pen buPROPion XL (WELLBUTRIN XL) 300 mg 24 hr tablet Take 1 tablet by mouth once daily. levothyroxine (SYNTHROID) 112 mcg tablet Take 1 tablet by mouth once daily. Take on empty stomach. For thyroid losartan-hydroCHLOROthia zide (HYZAAR) 100-25 mg per tablet Take 1 tablet by mouth once daily. mirabegron (MYRBETRIQ) 25 mg Tb24 Take 1 tablet by mouth once daily. ondansetron orally disintegrating (ZOFRAN ODT) 4 mg disintegrating tablet Take 1 tablet by mouth every 8 hours as needed for nausea/vomiting. scopolamine (TRANSDERM-SCOP) patch 1.5 mg/72 hr (delivers 1 mg over 3 days) Apply 1 Patch as directed every 7 (more content not included)... Normal [facility] MARJORIE GRAHAM ([id number]) 1950 F NFR Date Time Provider Department 06/26/24 MICHAEL TARIQ During your visit today, we recorded the following information about you: Chantell Serrano MA 06/26/2024 9:58 AM Signed Outside images in [facility] from 04/2024 paperwork was sent to scanning last week. Chantell Serrano MA Allergies As of Date: 06/26/2024 Noted Allergy Reaction ASPIRIN 12/02/2002 Comments: Tinnitus, hearing loss AD when on mary jo doses. Is able to take ASA now without any reaction. CIPROFLOXACIN 07/03/2019 4 - Hives Comments: reports hives now after completing cipro 06/23/2019 METFORMIN 06/06/2010 8 - GI Upset Comments: made her ill; stomach upset with pain and diarrhea- has taken since with no issue PENICILLINS 11/06/2002 16 - Unknown Comments: joseph SULFA (SULFONAMIDE ANTIBIOTICS) 11/06/2002 16 - Unknown Comments: joseph ZOCOR (SIMVASTATIN) 07/21/2005 Comments: myalgias Date Reviewed: 06/20/2024 Reviewed by: Erica Elliott LPN - Fully Assessed Prescriptions as of 06/26/2024 - tobramycin 20 mg (CPD) Use 1 Each in the nose two times a day. Comments for compounding pharmacy: tobramycin 20mg - into 8oz saline. Perform irrigations twice daily - rosuvastatin (CRESTOR) 10 mg tablet Take 1 tablet by mouth once daily. - beta-carotene,A,-vits C,E/mins (OCUVITE ORAL) Take 1 capsule by mouth once daily. - empagliflozin (JARDIANCE) 10 mg tablet Take 1 tablet by mouth once daily. Take 1 tablet once daily in the morning - blood sugar diagnostic (BLOOD GLUCOSE TEST) test strip Test blood sugar(s) 1 times daily. Dx: Type 2 DM - Uncontrolled E11.65 Insulin: No - Lancets Test blood suga(s) 1 times daily. Dx: Type 2 DM - Uncontrolled E11.65 Insulin: No. Also dispense a lancet pen - buPROPion XL (WELLBUTRIN XL) 300 mg 24 hr tablet Take 1 tablet by mouth once daily. - levothyroxine (SYNTHROID) 112 mcg tablet Take 1 tablet by mouth once daily. Take on empty stomach. For thyroid - losartan-hydroCHLOROthia zide (HYZAAR) 100-25 mg per tablet Take 1 tablet by mouth once daily. - mirabegron (MYRBETRIQ) 25 mg Tb24 Take 1 tablet by mouth once daily. - ondansetron orally disintegrating (ZOFRAN ODT) 4 mg disintegrating tablet Take 1 tablet by mouth every 8 hours as needed for nausea/vomiting. - scopolamine (TRANSDERM-SCOP) patch 1.5 mg/72 hr (delivers 1 mg over 3 days) Apply 1 Patch as directed every 72 hours. Apply patch to skin behind ear 4hrs prior to travel. - benzonatate (TESSALON PERLES) 100 mg capsule Take 1-2 capsules by mouth three times a day as needed. - albuterol (PROVENTIL) 2.5 mg /3 mL (0.083 %) nebulizer solution Use 3 mL via nebulizer every 4 hours as needed for wheezing/shortness of breath. - meclizine (ANTIVERT) 25 mg tab TAKE ONE TABLET BY MOUTH EVERY 6 HOURS NEEDED FOR DIZZINESS - albuterol HFA (VENTOLIN HFA) 90 mcg/actuation inhaler Inhale 2 Puffs as instructed every 4 hours as needed. - hyoscyamine (LEVSIN) 0.125 mg tablet Take 0.125 mg by mouth every 6 hours as needed. - metFORMIN ER (GLUCOPHAGE XR) 500 mg 24 hr tablet Taking total of 4 pills per day but in divided doses - omeprazole (PRILOSEC) 40 mg capsule Take 1 capsule by mouth once daily. - phenazopyridine (PYRIDIUM) 200 mg tablet Take 1 tablet by mouth three times daily as needed. - fluticasone (FLONASE) 50 mcg/actuation nasal spray Use 2 Sprays in each nostril once daily. As directed - dicyclomine (BENTYL) 10 mg capsule Take 1 capsule by mouth twice daily as needed. - montelukast (SINGULAIR) 10 mg tablet Take 1 tablet by mouth daily at bedtime. - celecoxib (CELEBREX) 200 mg capsule TAKE 1 TABLET BY MOUTH ONCE A DAY WITH FOOD - multivitamin tablet Take 1 tablet by mouth once daily. - Cholecalciferol, Vitamin D3, (VITAMIN D) 1,000 unit cap Take 1 capsule by mouth once daily. - cetirizine (ZYRTEC) 10 mg tablet Take 10 mg by mouth once daily. - acetaminophen 500 mg tablet Take 500 mg by mouth every 6 hours as needed. Problem List As Of Date 06/26/2024 Noted Resolved DYSMETABOLIC SYNDROME X [E88.810] 11/07/2002 Fibromyalgia [M79.7] PURE HYPERCHOLESTEROLEM [E78.00] Acquired hypothyroidism [E03.9] MORBID OBESITY [E66.01] 08/03/2015 Reactive depression [F32.9] Primary hypertension [I10] History of breast cancer [Z85.3] Allergic rhinitis, cause unspecified [J30.9] 10/19/2015 ESOPHAGEAL REFLUX [K21.9] 07/24/2005 Irritable bowel syndrome [K58.9] 01/24/2006 10/19/2015 Abnormal mammogram, unspecified [R92.8] 04/18/2006 10/19/2015 Periodic limb movement disorder [G47.61] 05/16/2006 10/19/2015 MASS IN NECK [R22.0, R22.1] 11/01/2007 10/19/2015 Acute gastritis without mention of hemorrhage [*08/19/2008 10/19/2015 Lump or mass in breast [N63.0] 09/02/2009 10/19/2015 Abdominal pain, epigastric [R10.13] 09/02/2010 06/13/2014 Abdominal pain, unspecified site [ (more content not included)... Normal [facility] Bacteria identified Cx Nom ( Sinus)Ordered By: Nati Poole on 06-22-2024 Interpretation and review of laboratory results Abnormal [facility] Microscopic observation Smear Nom (Unsp spec) No organisms seen [facility] Microscopic observation Smear Nom (Unsp spec) No Polymorphonuclear Leukocytes [facility] This test was chente castillo and its performance characteristics determined by the [facility]'s [facility] ([facility]). It has not been cleared or approved by the FDA. [facility] is regulated under CLIA as qualified to perform high-complexity testing. This test is used for clinical purposes. It should not be regarded as investigational or for research. [facility] SINUS CULTURE AND GRAM STAIN Ordered By: Nati Poole on 06-22-2024 Bacteria identified Cx Nom (Sinus) Rare Achromobacter species Abnormal [facility] Comment on above: Insignificant colony count. No further workup. No Pseudomonas aeruginosa isolated. Bacteria identified Cx Nom (Sinus) Few normal respiratory aleisha [facility] Bacteria Sinus Culton 2023 Bacteria identified Cx Nom (Sinus) ORGANISM ID: 1 Rare Achromobacter species Insignificant colony count. No further workup. No Pseudomonas aeruginosa isolated. ORGANISM ID: 2 Few normal respiratory aleisha GRAM STAIN: No organisms seen No Polymorphonuclear Leukocytes Abnormal [facility] Comment on above: Performed By: #### 4 3307-8 ####[facility] LABCLIA [id number] [address] CNOVon 06-20-2024 CNOV Office Visit (OTOLTW ) -------- MARJORIE GRAHAM ([id number]) 1950 F NFR Date Time Provider Department 06/20/24 10:30 AM MICHAEL TARIQ OTOLTW During your visit today, we recorded the following information about you: Michael Tariq MD 07/25/2024 11:12 AM Signed SECTION OF RHINOLOGY, SINUS AND SKULL BASE SURGERY Head and Neck [facility] INITIAL VISIT NOTE This patient is a new patient. They are seen at the request of: Fifi Green for 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 (ICD-10-CM)] (Bilateral maxillary antrostomies, bilateral frontal sinusotomy per operative reports on file); History of ethmoidectomy [Z98.890 (ICD-10-CM)]; Diplopia [H53.2 (ICD-10-CM)] (Reported air in orbit on left s/p sinus surgery--suspected orbital fracture. CT scan done at [facility] nonconfirmatory) [address] [place] [address] CONSULT Patient confirms that consultation was verbally initiated by the specified requesting physician. Final recommendations will be communicated back to the requesting physician through the shared medical record or written communication (sent by US mail). CC: postop complication HPI: Marjorie Graham is a 73 year old female presenting for evaluation of sinuses. Saw Internal Medicine in [place] on 01/23/24 where they note a CT that showed paranasal sinusitis, mucosal thickening, unable to locate CT. Given Augmentin for 10 days. 12/24 saw Internal and given, doxycycline and prednisone. Pt had surgery on 04/01/24 with Meghna Saavedra, this was bilateral endoscopic sinus surgery and ET dilation. Right after surgery before she left she had double vision and dizziness was sent to ED and had CT scan (not sinuses) and MRI to determine if there was a stroke. 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 Then a CT sinus scan was done and was told there was a fracture of the sinuse (pt does not bring any images today, the only report available is the MRI on 04/02/24 which indicated there was no acute ishemia and foci of abnormal signal on FLAIR imaging raise possibility of inflammatory process vs demyelinating disease (per report). Sinuses indicated limited views. Pt is still very nasally. Pt had vertigo after surgery which consists of both spinning and off balance. This resolved in the hospital. Pt can move her eyes okay. Pt has never had any postop care for sinuses. No data to display PAST MEDICAL HISTORY: PAST MEDICAL HISTORY Diagnosis Date Abdominal pain, epigastric Abdominal pain, left lower quadrant Acute gastritis without mention of hemorrhage Allergic rhinitis, cause unspecified Allergic rhinitis Diaphragmatic hernia without mention of obstruction or gangrene DM type 2 (diabetes mellitus, type 2) (HCC) Esophageal reflux 07/24/2005 Esophagitis, unspecified Intestinal disaccharidase deficiencies and disaccharide malabsorption Malignant neoplasm of breast (female), unspecified site 07/02/1985 Breast cancer Morbid obesity (HCC) Myalgia and myositis, unspecified Obesity (BMI 30-39.9) Pure hypercholesterolemia Unspecified constipation Unspecified essential hypertension Unspecified hypothyroidism Unspecified sinusitis (chronic) Chronic sinusitis Urge incontinence of urine PAST SURGICAL HISTORY: PAST SURGICAL HISTORY Procedure Laterality Date APPENDECTOMY 1964 ARTHRP KNE CONDYLEANDPLATU MEDIALANDLAT COMPARTMENTS Right 03/21/2018 ARTHRP KNE CONDYLEANDPLATU MEDIALANDLAT COMPARTMENTS Left 09/05/2018 BIOPSY BREAST OPEN INCISIONAL Bx of breast, incisional BREAST BIOPSY CORE 05/11/06 U/S needle core right breast 11:30am CHOLECYSTECTOMY 1968 Cholecystectomy at age 17 COLONOSCOPY FLX DX W/COLLJ SPEC WHEN PFRMD 02/25/2002 Colonoscopy COLONOSCOPY FLX DX W/COLLJ SPEC WHEN PFRMD 05/31/07 EGD TRANSORAL BIOPSY SINGLE/MULTIPLE 09/02/10 EGD TRANSORAL BIOPSY SINGLE/MULTIPLE 07/19/11 ESOPHAGOGASTRODUODENOSCO PY TRANSORAL DIAGNOSTIC 08/19/2008 EGD ESOPHAGOGASTRODUODENOSCO PY TRANSORAL DIAGNOSTIC 08/13/15 EGD EXC TUMOR SOFT TISS NECK/THORAX SUBFASCIAL <5CM 11-18-07 lipoma of neck HYSTERECTOMY HX 06/15/11 [facility] LAMINECTOMY W/O FFD 07/03 VERT SEG LUMBAR 1989 MASTECTOMY 1986 left PAST SURGICAL HISTORY OF 2008 right knee arthroscopic surgery for torn meniscus SALPINGO-OOPHORECTOMY COMPL/PRTL UNI/BI SPX 1975 LEFT ---ECTOPIC FAMILY HISTORY Problem Relation Age of Onset Cancer Mother lung Heart Father Diabetes Maternal Grandmother Colon Cancer Other MATERNAL UNCLES Social History Tobacco Use Smoking status: Never Smokeless tobacco: Never Vaping Use Vaping status: Never Used Substance Use Topics Alcohol use: No Comment: less than one drink per week Drug use: No MEDICATIONS: Current Outpatient Medications Medication Sig rosuvasta (more content not included)... Normal [facility] Daisy 06-16-2024 [place] Telephone (INTWS) -------- MARJORIE GRAHAM ([id number]) 1950 F NFR Date Time Provider Department 06/16/24 FIFI GREEN INTMWS During your visit today, we recorded the following information about you: Karie Plascencia RN 06/16/2024 9:32 AM Signed Patient calls and states that it is time for her annual screening mammogram. Patient asking for orders to be placed so that she can get this scheduled. Please review and advise, AUSTYN Cervantes Jazzmin, MA 06/18/2024 6:58 PM Signed Please schedule [facility] ARMOND Rocha Melody 06/19/2024 10:06 AM Signed 1st attempt to call patient to schedule Mammo screening. LVM Allergies As of Date: 06/16/2024 Noted Allergy Reaction ASPIRIN 12/02/2002 Comments: Tinnitus, hearing loss AD when on mary jo doses. Is able to take ASA now without any reaction. CIPROFLOXACIN 07/03/2019 4 - Hives Comments: reports hives now after completing cipro 06/23/2019 METFORMIN 06/06/2010 8 - GI Upset Comments: made her ill; stomach upset with pain and diarrhea- has taken since with no issue PENICILLINS 11/06/2002 16 - Unknown Comments: joseph SULFA (SULFONAMIDE ANTIBIOTICS) 11/06/2002 16 - Unknown Comments: joseph ZOCOR (SIMVASTATIN) 07/21/2005 Comments: myalgias Date Reviewed: 03/25/2024 Reviewed by: Nelli Abdul LPN - Fully Assessed Reason for Visit: Orders [681] Cmt: Mammogram Primary Visit Diagnosis:Encounter for screening mammogram for breast cancer [Z12.31] Order(s):[facility] SCREENING [[id number]] Order #: [id number] FUTURE Prescriptions as of 06/19/2024 - rosuvastatin (CRESTOR) 10 mg tablet Take 1 tablet by mouth once daily. - beta-carotene,A,-vits C,E/mins (OCUVITE ORAL) Take 1 capsule by mouth once daily. - empagliflozin (JARDIANCE) 10 mg tablet Take 1 tablet by mouth once daily. Take 1 tablet once daily in the morning - blood sugar diagnostic (BLOOD GLUCOSE TEST) test strip Test blood sugar(s) 1 times daily. Dx: Type 2 DM - Uncontrolled E11.65 Insulin: No - Lancets Test blood suga(s) 1 times daily. Dx: Type 2 DM - Uncontrolled E11.65 Insulin: No. Also dispense a lancet pen - buPROPion XL (WELLBUTRIN XL) 300 mg 24 hr tablet Take 1 tablet by mouth once daily. - levothyroxine (SYNTHROID) 112 mcg tablet Take 1 tablet by mouth once daily. Take on empty stomach. For thyroid - losartan-hydroCHLOROthia zide (HYZAAR) 100-25 mg per tablet Take 1 tablet by mouth once daily. - mirabegron (MYRBETRIQ) 25 mg Tb24 Take 1 tablet by mouth once daily. - ondansetron orally disintegrating (ZOFRAN ODT) 4 mg disintegrating tablet Take 1 tablet by mouth every 8 hours as needed for nausea/vomiting. - scopolamine (TRANSDERM-SCOP) patch 1.5 mg/72 hr (delivers 1 mg over 3 days) Apply 1 Patch as directed every 72 hours. Apply patch to skin behind ear 4hrs prior to travel. - benzonatate (TESSALON PERLES) 100 mg capsule Take 1-2 capsules by mouth three times a day as needed. - albuterol (PROVENTIL) 2.5 mg /3 mL (0.083 %) nebulizer solution Use 3 mL via nebulizer every 4 hours as needed for wheezing/shortness of breath. - meclizine (ANTIVERT) 25 mg tab TAKE ONE TABLET BY MOUTH EVERY 6 HOURS NEEDED FOR DIZZINESS - albuterol HFA (VENTOLIN HFA) 90 mcg/actuation inhaler Inhale 2 Puffs as instructed every 4 hours as needed. - hyoscyamine (LEVSIN) 0.125 mg tablet Take 0.125 mg by mouth every 6 hours as needed. - metFORMIN ER (GLUCOPHAGE XR) 500 mg 24 hr tablet Taking total of 4 pills per day but in divided doses - omeprazole (PRILOSEC) 40 mg capsule Take 1 capsule by mouth once daily. - phenazopyridine (PYRIDIUM) 200 mg tablet Take 1 tablet by mouth three times daily as needed. - fluticasone (FLONASE) 50 mcg/actuation nasal spray Use 2 Sprays in each nostril once daily. As directed - dicyclomine (BENTYL) 10 mg capsule Take 1 capsule by mouth twice daily as needed. - montelukast (SINGULAIR) 10 mg tablet Take 1 tablet by mouth daily at bedtime. - celecoxib (CELEBREX) 200 mg capsule TAKE 1 TABLET BY MOUTH ONCE A DAY WITH FOOD - multivitamin tablet Take 1 tablet by mouth once daily. - Cholecalciferol, Vitamin D3, (VITAMIN D) 1,000 unit cap Take 1 capsule by mouth once daily. - cetirizine (ZYRTEC) 10 mg tablet Take 10 mg by mouth once daily. - acetaminophen 500 mg tablet Take 500 mg by mouth every 6 hours as needed. Problem List As Of Date 06/16/2024 Noted Resolved DYSMETABOLIC SYNDROME X [E88.810] 11/07/2002 Fibromyalgia [M79.7] PURE HYPERCHOLESTEROLEM [E78.00] Acquired hypothyroidism [E03.9] MORBID OBESITY [E66.01] 08/03/2015 Reactive depression [F32.9] Primary hypertension [I10] History of breast cancer [Z85.3] Allergic rhinitis, cause unspecified [J30.9] 10/19/2015 ESOPHAGEAL REFLUX [K21.9] 07/24/2005 Irritable bowel syndrome [K58.9] 01/24/2006 10/19/2015 Abnormal mammogram, unspecified [R92.8] 04/18/2006 10/19/19 (more content not included)... Normal [facility] Basic metabolic 2000 panelon 05-21-2024 Anion gap [Moles/Vol] 13 mmol/L Normal 8-[address] [facility] Comment on above: Order Comment: Speci men Type: BLOOD SPECIMENOrdering Facility: [facility] Address: [address] [place] [address] Performed By: #### 2 4321-2 ####[facility] [id number] [place] [address] [place] Calcium [Mass/Vol] 10.1 mg/dL Normal 8.5-10.2 [facility] Comment on above: Order Comment: Speci men Type: BLOOD SPECIMENOrdering Facility: [facility] Address: [address] [place] [address] Performed By: #### 2 4321-2 ####[facility] MILLTOWNCLIA [id number] [place] [address] [place] Chloride [Moles/Vol] 99 mmol/L Normal 98-107 [facility] Comment on above: Order Comment: Speci men Type: BLOOD SPECIMENOrdering Facility: [facility] Address: [address] [place] [address] Performed By: #### 2 4321-2 ####[facility] [id number] [place] [address] [place] CO2 [Moles/Vol] 26 mmol/L Normal 22-30 [facility] Comment on above: Order Comment: Speci men Type: BLOOD SPECIMENOrdering Facility: [facility] Address: [address] [place] [address] Performed By: #### 2 4321-2 ####[facility] [id number] [place] [address] [place] Creatinine [Mass/Vol] 0.75 mg/dL Normal 0.58-0.[address] [facility] Comment on above: Order Comment: Speci men Type: BLOOD SPECIMENOrdering Facility: [facility] Address: [address] [place] [address] Performed By: #### 2 4321-2 ####[facility] [id number] [address] OF [facility] Creatinine and Glomerular filtration rate.predicted panel (S/P/Bld) 83 mL/min/1.73m??? Normal >=60 [facility] Comment on above: Order Comment: Speci men Type: BLOOD SPECIMENOrdering Facility: [facility] Address: [address] [place] [address] Result Comment: Josee mated Glomerular Filtration Rate (eGFR) is calculated using the 2020 CKD-EPI creatinine equation. This equation utilizes serum creatinine, sex, and age as parameters. The creatinine assay has traceable calibration to isotope dilution-mass spectrometry. Refer to KDIGO guidelines for clinical interpretation. In patients with unstable renal function, e.g. those with acute kidney injury, the eGFR may not accurately reflect actual GFR. Performed By: #### 2 4321-2 ####[facility] SHANNONWNCLIA [id number] [place] [address] [place] Glucose [Mass/Vol] 219 mg/dL High 74-99 [facility] Comment on above: Order Comment: Speci men Type: BLOOD SPECIMENOrdering Facility: [facility] Address: [address] [place], [place] [id number] Result Comment: The [place] Diabetes Association (ADA) provides guidance for cutoff values for fasting glucose and random glucose. The ADA defines fasting as no caloric intake for at least 8 hours. Fasting plasma glucose results between 100 to 125 mg/dL indicate increased risk for diabetes (prediabetes). Fasting plasma glucose results greater than or equal to 126 mg/dL meet the criteria for diagnosis of diabetes. In the absence of unequivocal hyperglycemia, results should be confirmed by repeat testing. In a patient with classic symptoms of hyperglycemia or hyperglycemic crisis, random plasma glucose results greater than or equal to 200 mg/dL meet the criteria for diagnosis of diabetes. Reference: Standards of Medical Care in Diabetes 2016, [place] Diabetes Association. Diabetes Care. 2016.39(Suppl 1). Performed By: #### 2 4321-2 ####[facility] [id number] [place] [address] [place] Potassium [Moles/Vol] 4.0 mmol/L Normal 3.7-5.[address] [facility] Comment on above: Order Comment: Speci men Type: BLOOD SPECIMENOrdering Facility: [facility] Address: [address] [place] [address] Performed By: #### 2 4321-2 ####[facility] [id number] [place] [address] [place] Sodium [Moles/Vol] 138 mmol/L Normal 136-144 [facility] Comment on above: Order Comment: Speci men Type: BLOOD SPECIMENOrdering Facility: [facility] Address: [address] [place] [address] Performed By: #### 2 4321-2 ####[facility] [id number] [place] [address] [place] Urea nitrogen [Mass/Vol] 18 mg/dL Normal 7-21 [facility] Comment on above: Order Comment: Speci men Type: BLOOD SPECIMENOrdering Facility: [facility] Address: [address] [place] [address] Performed By: #### 2 4321-2 ####[facility] [id number] [place] [address] [place] HbA1c (Bld)on 05-21-2024 Average glucose Estimated from glycated hemoglobin (Bld) [Mass/Vol] 197 mg/dL Normal [facility] Comment on above: Order Comment: Mini men Type: BLOOD SPECIMENOrdering Facility: [facility] Address: [address] [place] [address] Result Comment: eAG: (Estimated average glucose) is a calculated value from HgbA1c and is policy services representative of the average blood glucose level in the last 2-3 month period. Performed By: #### 5 5454-3 ####[facility] LABCLIA [id number] [place] [address] [place] HbA1c (Bld) [Mass fraction] 8.5 % High 4.3-5.6 [facility] Comment on above: Order Comment: [facility] Type: BLOOD SPECIMENOrdering Facility: [facility] Address: [address] [place] [address] Result Comment: [place] Diabetes Association guidelines indicate that patients with HgbA1c in the range 5.7-6.4% are at increased risk for development of diabetes, and intervention by lifestyle modification may be beneficial. HgbA1c greater or equal to 6.5% is considered diagnostic of diabetes. Performed By: #### 5 5454-3 ####[facility] LABCLIA [id number] [place] [address] [address] [place] Daisy 05-09-2024 CNPN Telephone (OTOLMN) -------- MARJORIE GRAHAM ([id number]) 1950 F NFR Date Time Provider Department 05/09/24 MICHAEL TARIQ OTOLMELCHOR During your visit today, we recorded the following information about you: Hilda Ellis RN 05/09/2024 2:46 PM Signed LM to call office Please see if she would like to move up her appt with Dr Tariq He has new pt openings 05/14 in and 05/27 [place] Chantelle Schultz 05/09/2024 2:55 PM Signed Patient is happy with what she has. Allergies As of Date: 05/09/2024 Noted Allergy Reaction ASPIRIN 12/02/2002 Comments: Tinnitus, hearing loss AD when on mary jo doses. Is able to take ASA now without any reaction. CIPROFLOXACIN 07/03/2019 4 - Hives Comments: reports hives now after completing cipro 06/23/2019 METFORMIN 06/06/2010 8 - GI Upset Comments: made her ill; stomach upset with pain and diarrhea- has taken since with no issue PENICILLINS 11/06/2002 16 - Unknown Comments: hives SULFA (SULFONAMIDE ANTIBIOTICS) 11/06/2002 16 - Unknown Comments: hives ZOCOR (SIMVASTATIN) 07/21/2005 Comments: myalgias Date Reviewed: 03/25/2024 Reviewed by: Nelli Abdul LPN - Fully Assessed Prescriptions as of 05/09/2024 - beta-carotene,A,-vits C,E/mins (OCUVITE ORAL) Take 1 capsule by mouth once daily. - empagliflozin (JARDIANCE) 10 mg tablet Take 1 tablet by mouth once daily. Take 1 tablet once daily in the morning - blood sugar diagnostic (BLOOD GLUCOSE TEST) test strip Test blood sugar(s) 1 times daily. Dx: Type 2 DM - Uncontrolled E11.65 Insulin: No - Lancets Test blood suga(s) 1 times daily. Dx: Type 2 DM - Uncontrolled E11.65 Insulin: No. Also dispense a lancet pen - buPROPion XL (WELLBUTRIN XL) 300 mg 24 hr tablet Take 1 tablet by mouth once daily. - levothyroxine (SYNTHROID) 112 mcg tablet Take 1 tablet by mouth once daily. Take on empty stomach. For thyroid - losartan-hydroCHLOROthia zide (HYZAAR) 100-25 mg per tablet Take 1 tablet by mouth once daily. - mirabegron (MYRBETRIQ) 25 mg Tb24 Take 1 tablet by mouth once daily. - ondansetron orally disintegrating (ZOFRAN ODT) 4 mg disintegrating tablet Take 1 tablet by mouth every 8 hours as needed for nausea/vomiting. - scopolamine (TRANSDERM-SCOP) patch 1.5 mg/72 hr (delivers 1 mg over 3 days) Apply 1 Patch as directed every 72 hours. Apply patch to skin behind ear 4hrs prior to travel. - benzonatate (TESSALON PERLES) 100 mg capsule Take 1-2 capsules by mouth three times a day as needed. - albuterol (PROVENTIL) 2.5 mg /3 mL (0.083 %) nebulizer solution Use 3 mL via nebulizer every 4 hours as needed for wheezing/shortness of breath. - meclizine (ANTIVERT) 25 mg tab TAKE ONE TABLET BY MOUTH EVERY 6 HOURS NEEDED FOR DIZZINESS - albuterol HFA (VENTOLIN HFA) 90 mcg/actuation inhaler Inhale 2 Puffs as instructed every 4 hours as needed. - hyoscyamine (LEVSIN) 0.125 mg tablet Take 0.125 mg by mouth every 6 hours as needed. - metFORMIN ER (GLUCOPHAGE XR) 500 mg 24 hr tablet Taking total of 4 pills per day but in divided doses - omeprazole (PRILOSEC) 40 mg capsule Take 1 capsule by mouth once daily. - rosuvastatin (CRESTOR) 10 mg tablet Take 1 tablet by mouth once daily. - phenazopyridine (PYRIDIUM) 200 mg tablet Take 1 tablet by mouth three times daily as needed. - fluticasone (FLONASE) 50 mcg/actuation nasal spray Use 2 Sprays in each nostril once daily. As directed - dicyclomine (BENTYL) 10 mg capsule Take 1 capsule by mouth twice daily as needed. - montelukast (SINGULAIR) 10 mg tablet Take 1 tablet by mouth daily at bedtime. - celecoxib (CELEBREX) 200 mg capsule TAKE 1 TABLET BY MOUTH ONCE A DAY WITH FOOD - multivitamin tablet Take 1 tablet by mouth once daily. - Cholecalciferol, Vitamin D3, (VITAMIN D) 1,000 unit cap Take 1 capsule by mouth once daily. - cetirizine (ZYRTEC) 10 mg tablet Take 10 mg by mouth once daily. - acetaminophen 500 mg tablet Take 500 mg by mouth every 6 hours as needed. Problem List As Of Date 05/09/2024 Noted Resolved DYSMETABOLIC SYNDROME X [E88.810] 11/07/2002 Fibromyalgia [M79.7] PURE HYPERCHOLESTEROLEM [E78.00] Acquired hypothyroidism [E03.9] MORBID OBESITY [E66.01] 08/03/2015 Reactive depression [F32.9] Primary hypertension [I10] History of breast cancer [Z85.3] Allergic rhinitis, cause unspecified [J30.9] 10/19/2015 ESOPHAGEAL REFLUX [K21.9] 07/24/2005 Irritable bowel syndrome [K58.9] 01/24/2006 10/19/2015 Abnormal mammogram, unspecified [R92.8] 04/18/2006 10/19/2015 Periodic limb movement disorder [G47.61] 05/16/2006 10/19/2015 MASS IN NECK [R22.0, R22.1] 11/01/2007 10/19/2015 Acute gastritis without mention of hemorrhage [*08/19/2008 10/19/2015 Lump or mass in breast [N63.0] 09/02/2009 10/19/2015 Abdominal pain, epigastric [R10.13] 09/02/2010 06/13/2014 Abdominal pain, unspecified site [R10.9] 08/23/2011 06/13/2014 (more content not included)... [facility] MARJORIE GRAHAM ([id number]) 1950 F NFR Date Time Provider Department 04/24/24 FIFI GREEN INTMWS During your visit today, we recorded the following information about you: Britany Armendariz RN 04/24/2024 10:45 AM Signed Patient calls to let provider know that the antibiotic did help the sinus pain and symptoms. She is also asking for provide opinion on having a follow-up appointment with Dr. Wang the ENT that performed the sinus surgery. She reports that they called to schedule a follow-up but she is reluctant to schedule since they caused so much damage to her eye socket and vision. Patient asking if provider would recommend following up with Dr. Wang? Please review and advise, AUSTYN Fatima Liza D, MD 05/02/2024 12:55 AM Signed I agree with her about being wary about following up with Dr. Wang. Does she have follow up with Dr. García (ophtho)? She seems to be working with Dr. Esquivel even though sounds like patient did not see him for ENT evaluation. Verify if she is on a cancellation list for Dr. Tariq. Also, how are her symptoms now? Noted improved, but is she having some ongoing sinus pain, congestion, drainage? Eye symptoms (pain, double vision, etc)? Britany Armendariz RN 05/02/2024 10:33 AM Signed Patient had appointment with Dr. García yesterday. Noting minute improvement. Expects it to take 12 or more weeks with potential eye surgery at 6 months. Patient is on cancellation list with Dr. Tariq. Patient reports she hasn't followed up with Dr. Perez but plans to since she does need an ENT. Patient reports continued sinus pressure and clear drainage but no pain. Patient reports vision remains double (Dr. García currently has it taped) and no pain. AUSTYN Fatima Liza D, MD 05/02/2024 8:41 PM Signed Glad she is feeling better. Okay to monitor symptoms for now. Probably good to have a local ENT and then one at main campus as well given complications from the procedure by Dr. Saavedra. Benjie she has close follow up with Dr. García and that is having some improvement, even if seems minute. Allergies As of Date: 04/24/2024 Noted Allergy Reaction ASPIRIN 12/02/2002 Comments: Tinnitus, hearing loss AD when on mary jo doses. Is able to take ASA now without any reaction. CIPROFLOXACIN 07/03/2019 4 - Hives Comments: reports hives now after completing cipro 06/23/2019 METFORMIN 06/06/2010 8 - GI Upset Comments: made her ill; stomach upset with pain and diarrhea- has taken since with no issue PENICILLINS 11/06/2002 16 - Unknown Comments: hives SULFA (SULFONAMIDE ANTIBIOTICS) 11/06/2002 16 - Unknown Comments: hives ZOCOR (SIMVASTATIN) 07/21/2005 Comments: myalgias Date Reviewed: 03/25/2024 Reviewed by: Nelli Abdul LPN - Fully Assessed Reason for Visit: Patient Update [1234] Patient Question [8547] Prescriptions as of 05/02/2024 - beta-carotene,A,-vits C,E/mins (OCUVITE ORAL) Take 1 capsule by mouth once daily. - empagliflozin (JARDIANCE) 10 mg tablet Take 1 tablet by mouth once daily. Take 1 tablet once daily in the morning - blood sugar diagnostic (BLOOD GLUCOSE TEST) test strip Test blood sugar(s) 1 times daily. Dx: Type 2 DM - Uncontrolled E11.65 Insulin: No - Lancets Test blood suga(s) 1 times daily. Dx: Type 2 DM - Uncontrolled E11.65 Insulin: No. Also dispense a lancet pen - buPROPion XL (WELLBUTRIN XL) 300 mg 24 hr tablet Take 1 tablet by mouth once daily. - levothyroxine (SYNTHROID) 112 mcg tablet Take 1 tablet by mouth once daily. Take on empty stomach. For thyroid - losartan-hydroCHLOROthia zide (HYZAAR) 100-25 mg per tablet Take 1 tablet by mouth once daily. - mirabegron (MYRBETRIQ) 25 mg Tb24 Take 1 tablet by mouth once daily. - ondansetron orally disintegrating (ZOFRAN ODT) 4 mg disintegrating tablet Take 1 tablet by mouth every 8 hours as needed for nausea/vomiting. - scopolamine (TRANSDERM-SCOP) patch 1.5 mg/72 hr (delivers 1 mg over 3 days) Apply 1 Patch as directed every 72 hours. Apply patch to skin behind ear 4hrs prior to travel. - benzonatate (TESSALON PERLES) 100 mg capsule Take 1-2 capsules by mouth three times a day as needed. - albuterol (PROVENTIL) 2.5 mg /3 mL (0.083 %) nebulizer solution Use 3 mL via nebulizer every 4 hours as needed for wheezing/shortness of breath. - meclizine (ANTIVERT) 25 mg tab TAKE ONE TABLET BY MOUTH EVERY 6 HOURS NEEDED FOR DIZZINESS - albuterol HFA (VENTOLIN HFA) 90 mcg/actuation inhaler Inhale 2 Puffs as instructed every 4 hours as needed. - hyoscyamine (LEVSIN) 0.125 mg tablet Take 0.125 mg by mouth every 6 hours as needed. - metFORMIN ER (GLUCOPHAGE XR) 500 mg 24 hr tablet Taking total of 4 pills per day but in divided doses - omeprazole (PRILOSEC) 40 mg capsule Take 1 capsule by mouth once daily. - rosu (more content not included)... Normal [facility] 04-17-2024 [facility] Telephone (INTMWS) -------- MARJORIE GRAHAM ([id number]) 1950 F NFR Date Time Provider Department 04/17/24 FIFI GREEN INTMWS During your visit today, we recorded the following information about you: Briseida Cerda LPN 04/17/2024 9:25 AM Signed Patient calling she completed the Doxycyline rx Sunday and today she woke up with lots of sinus pressure, headache. Patient thinks may have start of sinus infection, but has not blow anything out of her nose today. Patient said she can not flush her sinus since her surgery. Patient said she is not calling ENT, Dr has not spoken to her since her surgery complications. Patient asking for another antibiotic rx. Patient uses [facility] in [place]. Please advise Philly Holt RN 04/18/2024 11:53 AM Signed Pt called in and reports she is still having L sided headache and congestion. Pt states she hasn't been able to get anything out of her sinuses, see previous message. Pt has sinus surgery on Apr [address] Wang that did the surgery has not had any contact with her since. She is now seeing Dr García in [place] as her eye doctor, and she told Pt to ask PCP about helping with this. Pt last saw provider on 03/25/24 before her surgery. I tried to get Pt in to be seen, but she states she isn't able to drive, because ever since the sinus surgery she has had double vision, and they are paving her long driveway so she couldn't get out. She reports they tried a prism therapy for her eyes and it didn't help. She reports she goes back in on Sunday and they are going to try something different. Please call and advise. Fifi Green MD 04/18/2024 7:29 PM Signed Difficult to tell if symptoms are from infection or not being able to clear due to inflammation after surgery, etc. Since got worse off the antibiotic, will continue another course. Should be seen for follow up here or by ENT if not getting better. Will reach out to ENT again if not getting better next week. Progress report next week please. The following approved medication requests have been transmitted electronically. Requested Prescriptions Signed Prescriptions Disp Refills doxycycline (VIBRA-TABS) 100 mg tablet 20 tablet 0 Sig: Take 1 tablet by mouth two times a day for 10 days. Authorizing Provider: FIFI GREEN MD Babulski, Amanda, RN 04/19/2024 10:03 AM Signed Called and left a voicemail for the Patient to call back and ask for a nurse to receive the providers message. AUSTYN Baker Beth, LPN 04/19/2024 10:12 AM Signed Patient returned call and went over notes from Dr Green with understanding. Aware rx sent to the pharmacy. Allergies As of Date: 04/17/2024 Noted Allergy Reaction ASPIRIN 12/02/2002 Comments: Tinnitus, hearing loss AD when on mary jo doses. Is able to take ASA now without any reaction. CIPROFLOXACIN 07/03/2019 4 - Hives Comments: reports hives now after completing cipro 06/23/2019 METFORMIN 06/06/2010 8 - GI Upset Comments: made her ill; stomach upset with pain and diarrhea- has taken since with no issue PENICILLINS 11/06/2002 16 - Unknown Comments: hives SULFA (SULFONAMIDE ANTIBIOTICS) 11/06/2002 16 - Unknown Comments: hives ZOCOR (SIMVASTATIN) 07/21/2005 Comments: myalgias Date Reviewed: 03/25/2024 Reviewed by: Nelli Abdul LPN - Fully Assessed Reason for Visit: Medication Request [138] Order(s):doxycycline (VIBRA-TABS) 100 mg tabletTake 1 tablet by mouth two times a day for 10 days.Disp: 20 tabletRfl: 0 Prescriptions as of 04/19/2024 - doxycycline (VIBRA-TABS) 100 mg tablet Take 1 tablet by mouth two times a day for 10 days. - beta-carotene,A,-vits C,E/mins (OCUVITE ORAL) Take 1 capsule by mouth once daily. - empagliflozin (JARDIANCE) 10 mg tablet Take 1 tablet by mouth once daily. Take 1 tablet once daily in the morning - blood sugar diagnostic (BLOOD GLUCOSE TEST) test strip Test blood sugar(s) 1 times daily. Dx: Type 2 DM - Uncontrolled E11.65 Insulin: No - Lancets Test blood suga(s) 1 times daily. Dx: Type 2 DM - Uncontrolled E11.65 Insulin: No. Also dispense a lancet pen - buPROPion XL (WELLBUTRIN XL) 300 mg 24 hr tablet Take 1 tablet by mouth once daily. - levothyroxine (SYNTHROID) 112 mcg tablet Take 1 tablet by mouth once daily. Take on empty stomach. For thyroid - losartan-hydroCHLOROthia zide (HYZAAR) 100-25 mg per tablet Take 1 tablet by mouth once daily. - mirabegron (MYRBETRIQ) 25 mg Tb24 Take 1 tablet by mouth once daily. - ondansetron orally disintegrating (ZOFRAN ODT) 4 mg disintegrating tablet Take 1 tablet by mouth every 8 hours as needed for nausea/vomiting. - scopolamine (TRANSDERM-SCOP) patch 1.5 mg/72 hr (delivers 1 mg over 3 days) Apply 1 Patch as directed every 72 hours. Apply patch to skin behind ear 4hrs prior to travel. - benzonatate (TESSALON (more content not included)... [facility] MARJORIE GRAAHM ([id number]) 1950 F NFR Date Time Provider Department 04/14/24 FIFI GREEN INTMWS During your visit today, we recorded the following information about you: Fifi Green MD 04/14/2024 1:27 PM Signed I have not heard back from ENT yet. Please get a progress report to see how she is doing then will reach out to ENT again if need to try to get appointment in sooner. How is her vision? Pain issues? Sinus symptoms? Sabrina Ayala RN 04/14/2024 5:55 PM Signed Spoke with patient. Symptoms not improving but not worsening. She says she has some nasal congestion and clear nasal drainage. She has intermittent right cheek pain. She still has double vision and will pecan picker her prism lens this week (had not come in yet). AUSTYN Weiss Liza D, MD 04/14/2024 7:42 PM Signed As long as stable and she is okay with waiting till June appointment with ENT, will stay the course with her following up with Dr. García. If symptoms were to worsen or just not getting better fast enough, can see about getting sooner appointment. Mara Hilario LPN 04/15/2024 8:43 AM Signed Patient aware of same. Will request a sooner appointment if the prism lens do not improve or clear up the symptoms. Allergies As of Date: 04/14/2024 Noted Allergy Reaction ASPIRIN 12/02/2002 Comments: Tinnitus, hearing loss AD when on mary jo doses. Is able to take ASA now without any reaction. CIPROFLOXACIN 07/03/2019 4 - Hives Comments: reports hives now after completing cipro 06/23/2019 METFORMIN 06/06/2010 8 - GI Upset Comments: made her ill; stomach upset with pain and diarrhea- has taken since with no issue PENICILLINS 11/06/2002 16 - Unknown Comments: hives SULFA (SULFONAMIDE ANTIBIOTICS) 11/06/2002 16 - Unknown Comments: hives ZOCOR (SIMVASTATIN) 07/21/2005 Comments: myalgias Date Reviewed: 03/25/2024 Reviewed by: Nelli Abdul LPN - Fully Assessed Reason for Visit: Patient Update [1234] Prescriptions as of 04/15/2024 - beta-carotene,A,-vits C,E/mins (OCUVITE ORAL) Take 1 capsule by mouth once daily. - empagliflozin (JARDIANCE) 10 mg tablet Take 1 tablet by mouth once daily. Take 1 tablet once daily in the morning - blood sugar diagnostic (BLOOD GLUCOSE TEST) test strip Test blood sugar(s) 1 times daily. Dx: Type 2 DM - Uncontrolled E11.65 Insulin: No - Lancets Test blood suga(s) 1 times daily. Dx: Type 2 DM - Uncontrolled E11.65 Insulin: No. Also dispense a lancet pen - buPROPion XL (WELLBUTRIN XL) 300 mg 24 hr tablet Take 1 tablet by mouth once daily. - levothyroxine (SYNTHROID) 112 mcg tablet Take 1 tablet by mouth once daily. Take on empty stomach. For thyroid - losartan-hydroCHLOROthia zide (HYZAAR) 100-25 mg per tablet Take 1 tablet by mouth once daily. - mirabegron (MYRBETRIQ) 25 mg Tb24 Take 1 tablet by mouth once daily. - ondansetron orally disintegrating (ZOFRAN ODT) 4 mg disintegrating tablet Take 1 tablet by mouth every 8 hours as needed for nausea/vomiting. - scopolamine (TRANSDERM-SCOP) patch 1.5 mg/72 hr (delivers 1 mg over 3 days) Apply 1 Patch as directed every 72 hours. Apply patch to skin behind ear 4hrs prior to travel. - benzonatate (TESSALON PERLES) 100 mg capsule Take 1-2 capsules by mouth three times a day as needed. - albuterol (PROVENTIL) 2.5 mg /3 mL (0.083 %) nebulizer solution Use 3 mL via nebulizer every 4 hours as needed for wheezing/shortness of breath. - meclizine (ANTIVERT) 25 mg tab TAKE ONE TABLET BY MOUTH EVERY 6 HOURS NEEDED FOR DIZZINESS - albuterol HFA (VENTOLIN HFA) 90 mcg/actuation inhaler Inhale 2 Puffs as instructed every 4 hours as needed. - hyoscyamine (LEVSIN) 0.125 mg tablet Take 0.125 mg by mouth every 6 hours as needed. - metFORMIN ER (GLUCOPHAGE XR) 500 mg 24 hr tablet Taking total of 4 pills per day but in divided doses - omeprazole (PRILOSEC) 40 mg capsule Take 1 capsule by mouth once daily. - rosuvastatin (CRESTOR) 10 mg tablet Take 1 tablet by mouth once daily. - phenazopyridine (PYRIDIUM) 200 mg tablet Take 1 tablet by mouth three times daily as needed. - fluticasone (FLONASE) 50 mcg/actuation nasal spray Use 2 Sprays in each nostril once daily. As directed - dicyclomine (BENTYL) 10 mg capsule Take 1 capsule by mouth twice daily as needed. - montelukast (SINGULAIR) 10 mg tablet Take 1 tablet by mouth daily at bedtime. - celecoxib (CELEBREX) 200 mg capsule TAKE 1 TABLET BY MOUTH ONCE A DAY WITH FOOD - multivitamin tablet Take 1 tablet by mouth once daily. - Cholecalciferol, Vitamin D3, (VITAMIN D) 1,000 unit cap Take 1 capsule by mouth once daily. - cetirizine (ZYRTEC) 10 mg tablet Take 10 mg by mouth once daily. - acetaminophen 500 mg tablet Take 500 mg by mouth every 6 hours as needed. Problem List As Of Date 04/14/2024 Noted Resolved DY (more content not included)... Normal [facility] Daisy 04-04-2024 [facility] Telephone (INTMWS) -------- GLADYSMARJORIE ([id number]) 1950 F NFR Date Time Provider Department 04/04/24 FIFI GREEN INTMWS During your visit today, we recorded the following information about you: Briseida Cerda LPN 04/04/2024 2:41 PM Signed Patient Vitaly calling had sinus surgery per Dr Saavedra from [facility]. She just had gotten out of [facility] ER had to go for CT. She was seen by Dr García the eye Dr and sent to the ER, she has skull fracture. His does not want to see Dr Saavedra any longer, she was to have gone in for sinus flush so many days after her surgery. Her is asking what should she do now, since she will not go back to him? She has eye complications, very upsetting and confusing to her . He is asking [facility] to fax records to PCP office. Please advise Jeevan Olson, RN 04/07/2024 1:05 PM Signed Pt checking on reply: Reports she had balloon plasty for her sinus to expand sinus cavity and open up the sinus. Developed eye pain after the surgery, and CT done in ER, found out her skull was fractured around the eye socket, from the surgery. Pt saw Dr. García for eye, who prescribed doxycycline for 7 days, and advised since patient is not having pain now, will just have to wait for the fracture to heal. Pt was suppose to go back to Dr. Weeks, who did the surgery, in a few days to have the sinus flushed, but is not going back to that doctor. Reports [place] is dealing with that doctor. Wants to know who can she see to have the sinus flushed? Reports she just completed steroids, and is concerned about her BS and BP, and is aware the steroids can elevate both, but returns to baseline, once completes steroid. Pt asking pcp opinion on what she should do now? Reports no improvement in sinus after surgery- still feels plugged. Fifi Green MD 04/07/2024 7:49 PM Signed My apologies for the delay in replying. The operative notes of Dr. Saavedra are under scanned documents. Did see that Dr. García reviewed patient with Dr. Esquivel who is ENT in [place]. She can see whether he would see her locally. (Noted: Her consult note is scanned in--air in left orbit noted. The CT done at [facility] did not note a fracture).. Will have to check with [facility]NT what they would recommend and need to verify with patient she and are okay with traveling outside of [place] for further evaluation and treatment. Check with patient if has a preference where to see ENT CT report from Care Everywhere: Relevant Diagnostic Tests and/or Laboratory Data Author Alex Campo [facility] Report Date/Time April 04, 2024 1:08pm [facility] Imaging Services [address] [place] [address] Sinus/Facial Bone MR#: [id number] Acct: [id number] Name: MARJORIE GRAHAM Rep #: [id number] : 1950 F 73 From: Dav Campo MD PCP: Dr. Fifi Green MD Status: FL E ER Study:Sinus/Facial Bone Date of Exam: Exam# [id number] Ordering Dr: Fuad Hutson DO [id number] STUDY: CT FACIAL BONES WITHOUT CONTRAST REASON FOR EXAM: Female, 73 years old. orbital emphysema and swelling. Recent sinus surgery. RADIATION DOSAGE (If Supplied By Facility): CTDIvol = ( 29.38 ) mGy, DLP = ( 518.07 ) mGycm TECHNIQUE: The patient was scanned in a multi detector CT scanner. Sagittal and coronal images were reconstructed. Individualized dose optimization techniques were used for this CT. COMPARISON: None. FINDINGS: Normal soft tissue structures. Normal orbital gaytan and orbital contents. Normal nasal bones and anterior nasal spine. Normal facial bones. There is no demonstrated fracture. There is opacification of the ethmoid sinuses. Mucosal thickening of the maxillary sinuses. Mild mucosal thickening of the anterior aspect of the sphenoid sinus. Mucosal thickening of the right frontal sinus. CT/Sinus/Facial Bone IMPRESSION: Partial opacification of the ethmoid sinuses. Mucosal thickening of the maxillary sinuses and sphenoid sinuses. Electronically Signed: Alex Campo MD at 13:08 EDT , CC: Dr. Cali Hutson DO; Dr. Fifi Green MD ~ [employer]: Signed Nelli Abdul LPN 04/08/2024 1:[address] Green to address. ANUSHA Curiel Liza D, MD 04/08/2024 8:32 PM Signed Check with patient if okay with seeing [facility] provider outside of [place]. Dr. Salas recommended specialist in sinus disease, and names provided include: Dr. Tariq, Kellee, or Sade. Verify whether she discussed ENT evalua (more content not included)... Normal [facility] Emergency Department Summary on 04-04-2024 Emergency Department Summary [facility] Medical Records Department [address] [place] [address] Emergency Department Summary 04/04/24 MR#: [id number] Acct: [id number] Name: GLADYSMARJORIE VANITA Rep #: [id number] : 1950 73 From: Cali Hutson DO PCP: Dr. 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 Patient underwent sinuplasty in the operating room at [facility] on Sunday. Postoperatively she felt dizziness and nausea and they took her to the emergency room where she underwent a stroke evaluation was admitted to the hospital. He was felt that she had a negative MRI and that she did not have a stroke. She followed up with her family actuarial director who referred her to ophthalmology today. At the parking patroller office it was noted that she had restriction in upward gaze in the left eye. Her eye pressures were normal. Ophthalmology Dr. García reviewed the images with local ENT Dr. Esquivel who felt concern for orbital emphysema possibly entrapment of the eye muscles and was sent to the emergency room for CT scan of the orbits/sinuses. Patient is not on any blood thinners. No recent fevers. [facility] Medical History Retrosternal pain Nausea Epigastric pain Constipation Diarrhea GERD (gastroesophageal reflux disease) Asthma Hypertension Diabetes Thyroid disease Hypercholesterolemia History of left breast cancer Nausea Epigastric pain Screening for intestinal cancer Home Medications ???Medication ???Instructions ???Recorded ???Last Taken ???Type bupropion HCl 300 mg 24 hr tablet, 300 mg PO DAILY 06/17/15 Unknown History extended release omeprazole 40 mg capsule,delayed 40 mg PO DAILY 06/17/15 Unknown History release dicyclomine 10 mg capsule 10 mg PO PRN PRN cramps 02/20/18 Unknown History oxybutynin chloride 5 mg tablet 5 mg PO DAILY 02/20/18 Unknown History biotin 1 mg capsule 1 mg PO DAILY 06/17/20 Unknown History cholecalciferol (vitamin D3) 25 25 mcg PO DAILY 06/17/20 Unknown History mcg (1,000 unit) capsule fluticasone propionate 50 1 spray intranasal DAILY PRN 06/17/20 Unknown History mcg/actuation nasal Congestion spray,suspension (Children's Flonase Allergy Relief) levothyroxine 50 mcg tablet 112 mcg PO DAILY 06/17/20 Unknown History losartan 100 1 tab PO DAILY 06/17/20 Unknown History mg-hydrochlorothiazide 25 mg tablet metformin 500 mg tablet 500 mg PO BID 06/17/20 Unknown History multivitamin 1 cap PO DAILY 06/17/20 Unknown History ondansetron HCl 4 mg tablet 4 mg PO Q8H PRN zofran 06/17/20 Unknown History (Zofran) rosuvastatin 20 mg tablet 10 mg PO QHS 06/17/20 Unknown History sucralfate 1 gram tablet (Carafate) 1 g PO 4X/DAY 06/17/20 Unknown History Neuriva 1 tab PO DAILY 07/09/20 Unknown History ascorbic acid (vitamin C) 500 mg 500 mg PO DAILY 07/09/20 Unknown History capsule elderberry fruit 460 mg-elderberry 1 ea PO 07/09/20 Unknown History flower 115 mg capsule vit C,E,zinc,copper-omega3 250 1 ea PO DAILY 07/09/20 Unknown History mg-lutein 5 mg-zeaxanthin 1 mg capsule zinc 50 mg tablet 50 mg PO 07/09/20 Unknown History cholestyramine (with sugar) 4 gram 4 g PO BID #180 ea 07/16/20 Unknown Rx powder for susp in a packet doxycycline monohydrate 100 mg 100 mg PO BID #20 CAPSULES 04/04/24 Unknown Rx capsule Allergy/AdvReac Type Severity Reaction Status Date / Time ciprofloxacin (From Cipro) Allergy Mild Hives Verified 04/04/24 12:09 Penicillins (PCN) Allergy Hives Verified 04/04/24 12:09 Sulfa (Sulfonamide Allergy Hives Verified 04/04/24 12:09 Antibiotics) Family History Father Heart disease Mother Cancer Lung cancer Surgical History History of hysterectomy history excision lipoma neck history choledochojejunostomy History of left mastectomy History of bilateral knee replacement History of left salpingo-oophorectomy History of cholecystectomy History of appendectomy Social History Smoking Status: Never smoker alcohol intake: never substance use type: does not use ROS ROS ED Constitutional Constitutional ED: Denies chills, fever(s) or weight loss Eyes Eyes: Reports change in vision and diplopia ENT ENT ED: Denies ear pain, rhinorrhea or sore throat Cardiovascular Cardiovascular: Denies chest pain, orthopnea, palpitations or racing heartbeat Respiratory/Chest Respiratory/Chest: Denies cough, dyspnea or orthopnea Makayla (more content not included)... Normal [facility] Sinus/Facial Boneon 04-04-20 Sinus/Facial Bone [facility] Imaging Services [address] [place] [id number] Sinus/Facial Bone MR#: [id number] Acct: [id number] Name: MARJORIE GRAHAM Rep #: [id number] : 1950 F 73 From: Alex moody MD PCP: Dr. Fifi Green MD Status: PRE ER Study: Sinus/Facial Bone Date of Exam: 04/04/24 Exam# [id number] Ordering Dr: Cali Hutson DO [id number] STUDY: CT FACIAL BONES WITHOUT CONTRAST REASON FOR EXAM: Female, 73 years old. orbital emphysema and swelling. Recent sinus surgery. RADIATION DOSAGE (If Supplied By Facility): CTDIvol = ( 29.38 ) mGy, DLP = ( 518.07 ) mGycm TECHNIQUE: The patient was scanned in a multi detector CT scanner. Sagittal and coronal images were reconstructed. Individualized dose optimization techniques were used for this CT. COMPARISON: None. FINDINGS: Normal soft tissue structures. Normal orbital gaytan and orbital contents. Normal nasal bones and anterior nasal spine. Normal facial bones. There is no demonstrated fracture. There is opacification of the ethmoid sinuses. Mucosal thickening of the maxillary sinuses. Mild mucosal thickening of the anterior aspect of the sphenoid sinus. Mucosal thickening of the right frontal sinus. CT/Sinus/Facial Bone IMPRESSION: Partial opacification of the ethmoid sinuses. Mucosal thickening of the maxillary sinuses and sphenoid sinuses. Electronically Signed: Alex Campo MD at 13:08 EDT , CC: Dr. Cali Hutson DO; Dr. Fifi Green MD [employer]: Signed Normal [facility] BMP with eGFRon 04-02-2024 AGE 73 years Normal [facility] Comment on above: Performed By: #### 2 30235 #### [facility],[address] [place] [address] Anion gap [Moles/Vol] 10 mmol/L Normal 10 - 20 [facility] Comment on above: Performed By: #### 2 78404 #### [facility],[address] [place] [address] BMP with eGFR Normal [facility] Comment on above: Result Comment: BASI C METABOLIC PANEL Performed By: #### 2 93759 #### [facility],[address] [place] [address] Calcium [Mass/Vol] 8.7 mg/dL Normal 8.5 - 10.1 [facility] Comment on above: Performed By: #### 2 54694 #### [facility],[address] [place] [address] Chloride [Moles/Vol] 104 mmol/L Normal 98 - 107 [facility] Comment on above: Performed By: #### 2 14477 #### [facility],[address] [place] [address] CO2 [Moles/Vol] 28.9 mmol/L Normal 21.0 - 32.0 [facility] Comment on above: Performed By: #### 2 85649 #### [facility],[address] [place] [address] Creatinine [Mass/Vol] 0.74 mg/dL Normal 0.55 - 1.02 [facility] Comment on above: Performed By: #### 2 43096 #### [facility],[address] [place] [address] GFR/1.73 sq M.predicted among non-blacks MDRD (S/P/Bld) [Vol rate/Area] mL/min/{1.73_m2} Normal 60 - 999 [facility] Comment on above: Performed By: #### 2 39149 #### [facility],[address] [place] [address] Result Comment: ACCO RDING TO THE NATIONAL KIDNEY DISEASE EDUCATION PROGRAM(NKDE), A NORMAL eGFR IS A VALUE GREATER THAN OR EQUAL TO 60 ML/MIN/1.73 SQ METERS. CHRONIC KIDNEY DISEASE: <60mL/MIN/1.73 SQ METERS KIDNEY FAILURE: <15mL/MIN/1.73 SQ METERS THIS TEST SHOULD ONLY BE USED FOR PATIENTS 18 YEARS OF AGE AND OLDER. Glucose [Mass/Vol] 237 mg/dL High 74 - 106 [facility] Comment on above: Performed By: #### 2 86546 #### [facility],[address] [place] [address] Potassium [Moles/Vol] 4.2 mmol/L Normal 3.5 - 5.1 [facility] Comment on above: Performed By: #### 2 47147 #### [place] [address] Sodium [Moles/Vol] 139 mmol/L Normal 136 - 145 [facility] Comment on above: Performed By: #### 2 27028 #### [facility],[address] [place], [place] [address] Urea nitrogen [Mass/Vol] 22 mg/dL High 7 - 18 [facility] Comment on above: Performed By: #### 2 26862 #### [address] [address] CBC + DIFFon 04-02-2024 Baso # 0.03 x10EE3/UL Normal 0.00 - 0.10 [facility] Comment on above: Performed By: #### 2 08237 #### [facility],[address] [place], [place] [address] Basophils/100 WBC (Bld) 0.3 % Normal 0.0 - 2.0 [facility] Comment on above: Performed By: #### 2 70138 #### [facility],[address] [place] [address] CBC + DIFF Normal [facility] Comment on above: Result Comment: CBC- COMPLETE BLOOD COUNT Performed By: #### 2 21272 #### [facility],[address] [place] [address] EO # 0.07 x10EE3/UL Normal 0.00 - 0.50 [facility] Comment on above: Performed By: #### 2 60997 #### [facility],[address] [place] [address] Eosinophils/100 WBC (Bld) 0.8 % Normal 0.0 - 7.0 [facility] Comment on above: Performed By: #### 2 68899 #### [facility],[address] [place] [address] Erythrocyte distribution width (RBC) [Ratio] 13.6 % Normal 12.0 - 15.6 [facility] Comment on above: Performed By: #### 2 20424 #### [facility],[address] [place] [address] Hematocrit (Bld) [Volume fraction] 35.7 % Normal 34.0 - 46.0 [facility] Comment on above: Performed By: #### 2 27503 #### [facility],[address] [place] [address] Hemoglobin (Bld) [Mass/Vol] 11.5 g/dL Low 12.0 - 16.0 [facility] Comment on above: Performed By: #### 2 52734 #### [facility],[address] [place] [address] Lymph # 1.15 x10EE3/UL Normal 0.80 - 2.80 [facility] Comment on above: Performed By: #### 2 22946 #### [facility],[address] [place] [address] Lymphocytes/100 WBC (Bld) 12.6 % Low 20.0 - 45.0 [facility] Comment on above: Performed By: #### 2 62293 #### [facility],[address] [place] [address] MANUAL DIFF N/A Normal [facility] Comment on above: Performed By: #### 2 42024 #### [facility],[address] [place] [address] MCH (RBC) [Entitic mass] 29 pg Normal 27 - 33 [facility] Comment on above: Performed By: #### 2 04162 #### [facility],[address] [place] [address] MCHC 32 X10 3 Normal 32 - 36 [facility] Comment on above: Performed By: #### 2 12487 #### [facility],[address] [place] [address] MCV (RBC) [Entitic vol] 90 fL Normal 80 - 99 [facility] Comment on above: Performed By: #### 2 72155 #### [facility],[address] [place] [address] Nelson # 0.38 x10EE3/UL Normal 0.20 - 1.00 [facility] Comment on above: Performed By: #### 2 01357 #### [facility],[address] [place] [address] MONOS % 4.2 % Normal 0.0 - 10.0 [facility] Comment on above: Performed By: #### 2 08109 #### [facility],[address] [place], [place] [id number] Morphology Anish (Bld) [Interp] N/A Normal [facility] Comment on above: Performed By: #### 2 80451 #### [facility],[address] [place] [address] Neut # 7.47 x10EE3/UL High 1.50 - 7.10 [facility] Comment on above: Performed By: #### 2 63375 #### [facility],[address] [place] [address] Neutrophils/100 WBC (Bld) 82.1 % High 46.0 - 76.0 [facility] Comment on above: Performed By: #### 2 61082 #### [facility],[address] [place] [address] PLATELET 246 x10EE3/UL Normal 150 - 450 [facility] Comment on above: Performed By: #### 2 77766 #### [facility],[address] [place] [address] Platelet mean volume (Bld) [Entitic vol] 8.1 fL Normal 6.6 - 10.5 [facility] Comment on above: Result Comment: AUTO MATED DIFFERENTIAL Performed By: #### 2 13960 #### [facility],[address] [place] [address] RBC 3.95 x 10EE6/UL Low 4.10 - 5.30 [facility] Comment on above: Performed By: #### 2 26365 #### [facility],[address] [place] [address] WBC 9.1 x 10EE3/UL Normal 4.5 - 10.8 [facility] Comment on above: Performed By: #### 2 73077 #### [facility],[address] [place] [address] CV ECHO COMPLETE W/SALINEon 04-02-2024 CV ECHO COMPLETE W/SALINE [place] [id number] Patient: MARJORIE GRAHAM Phone#: : 1950 Age: 73 Gender: F Pt. Type: Out Account: [id number] Location: 010 Ordering: MEGHNA BettsMatt SEAN Exam Date: 04/02/20248:47 Family Phys: GRISELDA Charge Code: [id number] Physician: JOLYNN STOKES [place] Order #: [id number] Dose#: PROCEDURE: ECHO COMPLETE WITH SALINE HISTORY: Patient is 73-year-old female with TIA/CVA INDICATIONS: TIA/CVA COMPARISON: None. TECHNIQUE: A 2-D ultrasound, color spectral Doppler and M-mode evaluation of the heart and great vessels. PATIENT MEASUREMENTS: Height (in.): 63 BSA: 1.98 Weight (lbs.): 194 BP: 118/64 Car Starter: TY Saline bubble study performed with 9 cc's of agitated 0.9% NS injected I.V. push according to protocol. M MODE 2D MEASUREMENTS AND CALCULATIONS: LVIDd: 4.04 cm LVIDs: 2.59 cm IVSd: 1.09 cm LVPWd: 1.08 cm LVOT diam: 1.92 cm FS: 35.82 % Ao Root diam: 2.56 cm LA diam: 3.3 cm LA Volume Index: 26 mL/m2 LA A4 Area: 17.44 cm2 RA A4 Area: 16.4 cm2 RVDd: 3.9 cm TAPSE: 24 mm DOPPLER MEASUREMENTS AND CALCULATIONS MITRAL MV E MAX rachael: 0.99 m/s MV A MAX rachael: 0.99 m/s MV E-A ratio: 1.01 MVA VTI 3.24 cm2 MV V2 max: 1.02 m/s MV max P.14 mm[Hg] Continued Report - Page 2 of 3 Patient: ELTONNITOMARJORIE Phone#: : 1950 Age: 73 Gender: F Pt. Type: Out Account: [id number] Location: 010 Ordering: MEGHNA SAAVEDRA Exam Date: 04/02/2024/8:47 Family Phys: DIANBRYANTKEYANNA Charge Code: [id number] Physician: JOLYNN STOKES [place] Order #: [id number] Dose#: MV V2 mean: 0.62 m/s MV mean P.78 mm[Hg] MV V2 VTI: 29.24 cm MV PHT: 63.83 ms MVA PHT 3.45 cm2 Lat Peak E' Rachael 10 cm/sec Septal Peak E' RACHAEL 9 cm/sec E/E' lateral 9.68 E/E' medial 11.5 AORTIC Ao V2 max: 1.60 m/s Ao max P.23 mm[Hg] Ao V2 mean: 1.02 m/s Ao mean P.85 mm[Hg] Ao V2 VTI: 39.57 cm LIGIA (V Max): 2.22 cm2 LIGIA (VTI): 2.39 cm2 LV V1 Max 1.23 m/s LV V1 Max PG 6.08 mm[Hg] LV V1 Mean PG 3.32 mm[Hg] LV V1 mean 0.85 m/s LV V1 VTI 32.80 cm PULMONIC PA V2 Max 0.90 m/s PA Max PG 3.24 mm[Hg] TRICUSPID TR Max Rachael 2.31 m/s TR max PG 21.27 mm[Hg] RVSP 29 mm Hg 2D/M-MODE AND COLOR FLOW LEFT VENTRICLE: There is mild concentric left ventricular hypertrophy. Left ventricle is normal in size. Systolic ejection fraction is 60-65% there are no regional wall motion abnormality seen. Normal diastolic function. WALL MOTION: 1 - Basal anterior: Normal. 7 - Mid anterior: Normal. 13 - Apical anterior: Normal. 2 - Basal anteroseptal: Normal. 8 - Mid anteroseptal: Normal. 14 - Apical septal: Normal. 3 - Basal inferoseptal: Normal. 9 - Mid inferoseptal: Normal. 15 - Apical inferior: Normal. 4 - Basal inferior: Normal. 10-Mid inferior: Normal. 16 - Apical lateral: Normal. 5 - Basal inferolateral: Normal. 11-Mid inferolateral: Normal. 6 - Basal anterolateral: Normal. 12-Mid anterolateral: Normal. Continued Report - Page 3 of 3 Patient: MARJORIE GRAHAM Phone#: : 1950 Age: 73 Gender: F Pt. Type: Out Account: [id number] Location: [facility] Ordering: MEGHNA SAAVEDRA Exam Date: 04/02/2024/8:47 Family Phys: TALAMYSAS Charge Code: [id number] Physician: JOLYNN STOEKS [place] Order #: [id number] Dose#: RIGHT VENTRICLE: Right ventricle is normal in size and systolic function LEFT ATRIUM: Left atrium is normal size. RIGHT ATRIUM: Right atrium is normal size. ATRIAL SEPTUM: Agitated saline did not show any [id number]-[id number]-onkl shunt at rest and with provocation. MITRAL VALVE: There is mild mitral annular calcification seen. Mitral valve leaflets appear normal structure. There is trivial regurgitation no stenosis seen TRICUSPID VALVE: Tricuspid valve is normal structure. There is trivial regurgitation no stenosis seen AORTIC VALVE: Aortic valve is trileaflet with sclerosis. There is no regurgitation or stenosis seen PULMONIC VALVE: Pulmonic valve is inadequately visualized. Doppler shows no significant regurgitation or stenosis AORTIC ROOT: Aortic root is normal size AORTIC ARCH: Aortic arch normal in size DESC THORACIC AORTA: Descending aorta is normal size. Doppler shows normal systolic diastolic flow. IVC/SVC: IVC is normal size with less than 50% collapse of inspiration. Estimated atrial pressure is 8 mm Hg. PULMONARY VEINS: Normal pulmonic vein flow PERICARDIUM: There is no pericardial effusion seen. CONCLUSION: 1. There is mild concentric left ventricular hypertrophy. Left ventricle is normal size. Systolic ejection fraction is 60-65% with normal wall motion. 2. There is mild mitral annular calcification seen. There is trivial mitral valve regurgitation. 3. Aortic valve is trileaflet with sclerosis without stenosis or regurgitation. 4. Right ventricle is n (more content not included)... Normal [facility] LIPID PROFILEon 04-02-2024 Cholesterol [Mass/Vol] 128 mg/dL Normal 0 - 240 [facility] Comment on above: Performed By: #### 2 66776 #### [address] [address] Cholesterol in HDL [Mass/Vol] 53 mg/dL Normal 40 - 60 [facility] Comment on above: Performed By: #### 2 04435 #### [address] [address] Cholesterol in LDL [Mass/Vol] 60 mg/dL Normal 0 - 129 [facility] Comment on above: Performed By: #### 2 78158 #### [address] [address] Cholesterol.total/Cho lesterol in HDL [Mass ratio] 2.4 {ratio} Normal 0.0 - 5.0 [facility] Comment on above: Performed By: #### 2 23530 #### [facility],[address] [place] [address] Lipid [address] [facility] Comment on above: Result Comment: LIPI D PROFILE Performed By: #### 2 75727 #### [facility],[address] [place] [address] Triglyceride [Mass/Vol] 75 mg/dL Normal 0 - 150 [facility] Comment on above: Performed By: #### 2 55425 #### [facility],[address] [place] [address] MR MRA BRAIN WO CONTRASTon 1 MR MRA BRAIN CONTRAST [place] [address] Patient: MARJORIE GRAHAM Phone#: : 1950 Age: 73 Gender: F Pt. Type: Out Account: [id number] Location: [facility] Ordering: JOLYNN STOKES Exam Date: 04/02/2024/9:36 Family Phys: GRISELDA Charge Code: [id number] Physician: [place] Order #: [id number] Dose#: PROCEDURE: MR ANGIOGRAPHY BRAIN WITHOUT CONTRAST COMPARISON: None. INDICATIONS: Double vision TECHNIQUE: MR angiography was performed without intravenous gadolinium contrast material. Multiplanar images of the cerebral arteries were created and interpreted. FINDINGS: INTERNAL CAROTIDS: No visible stenosis or aneurysm. ANTERIOR CEREBRALS: No visible stenosis or aneurysm. MIDDLE CEREBRALS: No visible stenosis or aneurysm. POSTERIOR CEREBRALS: No visible stenosis or aneurysm. BASILAR: No visible stenosis or aneurysm. VERTEBRALS: No visible stenosis or aneurysm. OTHER: Negative with no evidence of a vascular malformation. CONCLUSION: 1. There is no evidence of significant stenosis or aneurysmal dilatation. Dictated by: Faith Monroe MD on 04/02/2024 at 12:20 Approved by: Faith Monroe MD on 04/02/2024 at 12:24 Normal [facility] MR MRA NECK W/O CONTRASTon 1 MR MRA NECK W/O CONTRAST [address] [address] Patient: MARJORIE GRAHAM Phone#: : 1950 Age: 73 Gender: F Pt. Type: Out Account: [id number] Location: [facility] Ordering: ZAKIELOISAKEVAN STOKES Exam Date: 04/02/2024/9:48 Family Phys: GRISELDA Charge Code: [id number] Physician: Alexandria Order #: [id number] Dose#: PROCEDURE: MR ANGIOGRAPHY NECK WITHOUT CONTRAST COMPARISON: None. INDICATIONS: Double vision TECHNIQUE: MR angiography was performed without intravenous gadolinium, with creation and interpretation of multi-planar images of the carotid and vertebral arteries. FINDINGS: LEFT INTERNAL CAROTID: Plaque is present at the origin of the internal carotid artery and appears to be approximately 50% stenosis. EXTERNAL CAROTID: Plaque is present at the origin the external carotid artery approximately 50% stenosis. COMMON CAROTID: No hemodynamically significant stenosis or dissection. VERTEBRAL: No hemodynamically significant stenosis or dissection. RIGHT INTERNAL CAROTID: Plaque is present at the origin the internal carotid artery with less than 50% stenosis. EXTERNAL CAROTID: No hemodynamically significant stenosis or dissection. COMMON CAROTID: No hemodynamically significant stenosis or dissection. VERTEBRAL: No hemodynamically significant stenosis or dissection. OTHER: The visualized soft tissues of the neck are also unremarkable. CONCLUSION: 1. Plaque is present at the origin of the internal carotid artery bilaterally. 2. Plaque is present at the origin of the left external carotid artery. 3. Further evaluation by vascular ultrasound is recommended to evaluate hemodynamics. Dictated by: Faith Monroe MD on 04/02/2024 at 12:24 Approved by: Faith Monroe MD on 04/02/2024 at 12:29 Normal [facility] MR MRI BRAIN W/O CONTRASTon 04-02-2024 MR MRI BRAIN W/O CONTRAST [address] [address] Patient: MARJORIE GRAHAM Phone#: : 1950 Age: 73 Gender: F Pt. Type: Out Account: [id number] Location: [facility] Ordering: JOLYNN STOKES Exam Date: 04/02/2024/8:37 Family Phys: GRISELDA Charge Code: [id number] Physician: Alexandria Order #: [id number] Dose#: PROCEDURE: MRI BRAIN WITHOUT CONTRAST COMPARISON: None. INDICATIONS: Double vision TECHNIQUE: A variety of imaging planes and parameters were utilized for visualization of suspected pathology. Images were performed without contrast. FINDINGS: CEREBRUM: Age-appropriate atrophy is present, without visible acute hemorrhage or lesion. Foci of abnormal signal on FLAIR imaging are present in the periventricular regions. Etiology is nonspecific. Possible remote infectious or inflammatory process versus demyelinating disease. There are 2 elongated horizontal foci in the left parietal lobe and right parietal lobe raising possibility of multiple sclerosis. CEREBELLUM: No edema, hemorrhage, mass, acute infarction, or inappropriate atrophy. BRAINSTEM: No edema, hemorrhage, mass, acute infarction, or inappropriate atrophy. CSF SPACES: Ventricles, cisterns, and sulci are appropriate for age. No hydrocephalus, subarachnoid hemorrhage, or mass. SKULL: No mass or other significant visible lesion. SINUSES: Limited views demonstrate no significant mucosal thickening or fluid. ORBITS: Limited views are unremarkable. OTHER: Negative. CONCLUSION: 1. Foci of abnormal signal on FLAIR imaging raise possibility of remote infectious or inflammatory process versus demyelinating disease. 2. There is no evidence of acute ischemia. Dictated by: Faith Monroe MD on 04/02/2024 at 11:49 Approved by: Faith Monroe MD on 04/02/2024 at 11:53 Normal [facility] CBC (NO DIFF)on 04-01-2024 CBC panel Auto (Bld) Normal [facility] Comment on above: Result Comment: CBC( WITHOUT DIFFERENTIAL) Performed By: #### 2 [id number] ####[facility],[address] [place] [address] Erythrocyte distribution width (RBC) [Ratio] 13.6 % Normal 12.0 - 15.6 [facility] Comment on above: Performed By: #### 2 50758 ####[facility],[address] [place] [address] Hematocrit (Bld) [Volume fraction] 38.1 % Normal 34.0 - 46.0 [facility] Comment on above: Performed By: #### 2 92569 ####[facility],[address] [place] [address] Hemoglobin (Bld) [Mass/Vol] 12.6 g/dL Normal 12.0 - 16.0 [facility] Comment on above: Performed By: #### 2 17352 ####[facility],[address] [place] [address] 32595 MCH (RBC) [Entitic mass] 30 pg Normal 27 - 33 [facility] Comment on above: Performed By: #### 2 10477 ####[facility],[address] [place] [address] MCHC 33 X10 3 Normal 32 - 36 [facility] Comment on above: Performed By: #### 2 10149 ####[facility],[address] [place] [address]898 MCV (RBC) [Entitic vol] 89 fL Normal 80 - 99 [facility] Comment on above: Performed By: #### 2 45875 ####[facility],[address] [place] [address] PLATELET 243 x10EE3/UL Normal 150 - 450 [facility] Comment on above: Performed By: #### 2 20392 ####[facility],[address] [place] [address] Platelet mean volume (Bld) [Entitic vol] 7.7 fL Normal 6.6 - 10.5 [facility] Comment on above: Performed By: #### 2 10666 ####[facility],[address] [place] [address]2496 RBC 4.27 x 10EE6/UL Normal 4.10 - 5.30 [facility] Comment on above: Performed By: #### 2 93470 ####[facility],[address] [place] [address] WBC 8.7 x 10EE3/UL Normal 4.5 - 10.8 [facility] Comment on above: Performed By: #### 2 53917 ####[facility],[address] [place] [address] CMP with eGFRon 04-01-2024 AGE 73 years Normal [facility] Comment on above: Performed By: #### 2 88101 #### [facility],[address] [place] [address]1444 Albumin [Mass/Vol] 3.2 g/dL Low 3.4 - 5.0 [facility] Comment on above: Performed By: #### 2 71099 #### [facility],[address] [place], [place] [id number] Albumin/Globulin [Mass ratio] 0.9 {ratio} Normal 0.9 - 1.6 [facility] Comment on above: Performed By: #### 2 82768 #### [facility],[address] [place] [address] ALK PHOS 72 U/L Normal 46 - 116 [facility] Comment on above: Performed By: #### 2 16686 #### [facility],[address] [place] [address]12[address] ALT [Catalytic activity/Vol] 22 U/L Normal 16 - 63 [facility] Comment on above: Performed By: #### 2 72846 #### [facility],[address] [place] [address] Anion gap [Moles/Vol] 12 mmol/L Normal 10 - 20 [facility] Comment on above: Performed By: #### 2 47793 #### [facility],[address] [place] [address]290 AST [Catalytic activity/Vol] 29 U/L Normal 13 - 39 [facility] Comment on above: Performed By: #### 2 60822 #### [facility],[address] [place] [address] B/C RATIO 25 ratio Normal 0 - 30 [facility] Comment on above: Performed By: #### 2 21810 #### [facility],[address] [place] [address] Bilirubin [Mass/Vol] 0.3 mg/dL Normal 0.2 - 1.0 [facility] Comment on above: Performed By: #### 2 69262 #### [facility],[address] [place] [address] Calcium [Mass/Vol] 8.8 mg/dL Normal 8.5 - 10.1 [facility] Comment on above: Performed By: #### 2 71322 #### [facility],[address] [place] [address] Chloride [Moles/Vol] 102 mmol/L Normal 98 - 107 [facility] Comment on above: Performed By: #### 2 81679 #### [facility],[address] [place] [address] CMP with eGFR Normal [facility] Comment on above: Result Comment: COMP REHENSIVE METABOLIC PANEL Performed By: #### 2 95362 #### [facility],[address] [place] [address] CO2 [Moles/Vol] 28.6 mmol/L Normal 21.0 - 32.0 [facility] Comment on above: Performed By: #### 2 15184 #### [facility],[address] [place] [address]992 Creatinine [Mass/Vol] 0.71 mg/dL Normal 0.55 - 1.02 [facility] Comment on above: Performed By: #### 2 95667 #### [facility],[address] [place] [address] GFR/1.73 sq M.predicted among non-blacks MDRD (S/P/Bld) [Vol rate/Area] mL/min/{1.73_m2} Normal 60 - 999 [facility] Comment on above: Performed By: #### 2 47269 #### [facility],[address] [place] [address] Result Comment: ACCO RDING TO THE NATIONAL KIDNEY DISEASE EDUCATION PROGRAM(NKDE), A NORMAL eGFR IS A VALUE GREATER THAN OR EQUAL TO 60 ML/MIN/1.73 SQ METERS. CHRONIC KIDNEY DISEASE: <60mL/MIN/1.73 SQ METERS KIDNEY FAILURE: <15mL/MIN/1.73 SQ METERS THIS TEST SHOULD ONLY BE USED FOR PATIENTS 18 YEARS OF AGE AND OLDER. Globulin (S) [Mass/Vol] 3.5 g/dL Normal 1.5 - 3.8 [facility] Comment on above: Performed By: #### 2 51130 #### [facility],[address] [place] [address] Glucose [Mass/Vol] 202 mg/dL High 74 - 106 [facility] Comment on above: Performed By: #### 2 88601 #### [facility],[address] [place] [address] Potassium [Moles/Vol] 4.4 mmol/L Normal 3.5 - 5.1 [facility] Comment on above: Performed By: #### 2 86823 #### [facility],[address] [place] [address] Protein [Mass/Vol] 6.7 g/dL Normal 6.4 - 8.2 [facility] Comment on above: Performed By: #### 2 85752 #### [facility],[address] [place] [address] Sodium [Moles/Vol] 138 mmol/L Normal 136 - 145 [facility] Comment on above: Performed By: #### 2 22771 #### [facility],[address] [place] [address] Urea nitrogen [Mass/Vol] 18 mg/dL Normal 7 - 18 [facility] Comment on above: Performed By: #### 2 46179 #### [facility],[address] [place] [address] BRAIN W/O CONTRASTon 10-0 CT BRAIN W/O CONTRAST [address] [address] Patient: MARJORIE GRAHAM Phone#: : 1950 Age: 73 Gender: F Pt. Type: ER Account: [id number] Location: [facility] Ordering: KISHOR PLASCENCIA Exam Date: 04/01/2024/16:27 Family Phys: TALBRYANTSAS Charge Code: [id number] Physician: Alexandria Order #: [id number] Dose#: [id number] PROCEDURE: CT BRAIN WITHOUT CONTRAST COMPARISON: [facility], CT, BRAIN W/O CON, 12/12/2023, 9:32. INDICATIONS: Altered mental status. TECHNIQUE: CT images were obtained without contrast material. All CT scans at this facility use dose modulation, iterative reconstruction, and/or weight based dosing when appropriate to reduce radiation dose to as low as reasonably achievable. IV CONTRAST: No IV contrast used,0ml TOTAL DOSE: 57.50 CTDIvol(mGy) FINDINGS: CEREBRUM: No edema, hemorrhage, mass, acute infarction, or inappropriate atrophy. CEREBELLUM: No edema, hemorrhage, mass, acute infarction, or inappropriate atrophy. BRAINSTEM: No edema, hemorrhage, mass, acute infarction, or inappropriate atrophy. CSF SPACES: Ventricles, cisterns, and sulci are appropriate for age. No hydrocephalus, subarachnoid hemorrhage, or mass. SKULL: No mass or other significant visible lesion. SINUSES: Heterogeneous attenuation is present in the ethmoid sinuses, likely related to recent surgery. There is a 9 millimeter right maxillary mucocele. Fluid level is present in the right maxillary sinus. ORBITS: Limited views are unremarkable. OTHER: Negative. CONCLUSION: 1. There is no evidence of acute intracranial abnormality. 2. Heterogeneous attenuation in the ethmoid sinuses. 3. Fluid level is present in the right maxillary sinus. Dictated by: Faith Monroe MD on 04/01/2024 at 16:43 Approved by: Faith Monroe MD on 04/01/2024 at 16:46 Normal [facility] MR MRA BRAIN WO CONTRASTon 1 MR MRA BRAIN WO CONTRAST [place] [id number] Patient: MARJORIE GRAHAM Phone#: : 1950 Age: 73 Gender: F Pt. Type: Out Account: [id number] Location: 010 Ordering: JOLYNN STOKES Exam Date: 04/02/2024/9:36 Family Phys: GRISELDA Charge Code: [id number] Physician: Alexandria Order #: [id number] Dose#: PROCEDURE: MR ANGIOGRAPHY BRAIN WITHOUT CONTRAST COMPARISON: None. INDICATIONS: Double vision TECHNIQUE: MR angiography was performed without intravenous gadolinium contrast material. Multiplanar images of the cerebral arteries were created and interpreted. FINDINGS: INTERNAL CAROTIDS: No visible stenosis or aneurysm. ANTERIOR CEREBRALS: No visible stenosis or aneurysm. MIDDLE CEREBRALS: No visible stenosis or aneurysm. POSTERIOR CEREBRALS: No visible stenosis or aneurysm. BASILAR: No visible stenosis or aneurysm. VERTEBRALS: No visible stenosis or aneurysm. OTHER: Negative with no evidence of a vascular malformation. CONCLUSION: 1. There is no evidence of significant stenosis or aneurysmal dilatation. Dictated by: Faith Monroe MD on 04/02/2024 at 12:20 Approved by: Faith Monroe MD on 04/02/2024 at 12:24 Normal [facility] MR MRA NECK W/O CONTRASTon 1 MR MRA NECK W/O CONTRAST [address] [address] Patient: GLADYS MARJORIE FuadMatt Phone#: : 1950 Age: 73 Gender: F Pt. Type: Out Account: [id number] Location: 010 Ordering: SANTIAGOER USAMARAN Exam Date: 04/02/2024/9:48 Family Phys: TALBRYANTSAS Charge Code: [id number] Physician: Alexandria Order #: [id number] Dose#: PROCEDURE: MR ANGIOGRAPHY NECK WITHOUT CONTRAST COMPARISON: None. INDICATIONS: Double vision TECHNIQUE: MR angiography was performed without intravenous gadolinium, with creation and interpretation of multi-planar images of the carotid and vertebral arteries. FINDINGS: LEFT INTERNAL CAROTID: Plaque is present at the origin of the internal carotid artery and appears to be approximately 50% stenosis. EXTERNAL CAROTID: Plaque is present at the origin the external carotid artery approximately 50% stenosis. COMMON CAROTID: No hemodynamically significant stenosis or dissection. VERTEBRAL: No hemodynamically significant stenosis or dissection. RIGHT INTERNAL CAROTID: Plaque is present at the origin the internal carotid artery with less than 50% stenosis. EXTERNAL CAROTID: No hemodynamically significant stenosis or dissection. COMMON CAROTID: No hemodynamically significant stenosis or dissection. VERTEBRAL: No hemodynamically significant stenosis or dissection. OTHER: The visualized soft tissues of the neck are also unremarkable. CONCLUSION: 1. Plaque is present at the origin of the internal carotid artery bilaterally. 2. Plaque is present at the origin of the left external carotid artery. 3. Further evaluation by vascular ultrasound is recommended to evaluate hemodynamics. Dictated by: Faith Monroe MD on 04/02/2024 at 12:24 Approved by: Faith Monroe MD on 04/02/2024 at 12:29 Normal [facility] MR MRI BRAIN W/O CONTRASTon 04-01-2024 MR MRI BRAIN W/O CONTRAST [place] [address] Patient: MARJORIE GRAHAM Phone#: : 1950 Age: 73 Gender: F Pt. Type: Out Account: [id number] Location: 010 Ordering: AtzipELOISAER MomoJACOB Exam Date: 04/02/2024/8:37 Family Phys: TALBRYANTSAS Charge Code: [id number] Physician: Alexandria Order #: [id number] Dose#: PROCEDURE: MRI BRAIN WITHOUT CONTRAST COMPARISON: None. INDICATIONS: Double vision TECHNIQUE: A variety of imaging planes and parameters were utilized for visualization of suspected pathology. Images were performed without contrast. FINDINGS: CEREBRUM: Age-appropriate atrophy is present, without visible acute hemorrhage or lesion. Foci of abnormal signal on FLAIR imaging are present in the periventricular regions. Etiology is nonspecific. Possible remote infectious or inflammatory process versus demyelinating disease. There are 2 elongated horizontal foci in the left parietal lobe and right parietal lobe raising possibility of multiple sclerosis. CEREBELLUM: No edema, hemorrhage, mass, acute infarction, or inappropriate atrophy. BRAINSTEM: No edema, hemorrhage, mass, acute infarction, or inappropriate atrophy. CSF SPACES: Ventricles, cisterns, and sulci are appropriate for age. No hydrocephalus, subarachnoid hemorrhage, or mass. SKULL: No mass or other significant visible lesion. SINUSES: Limited views demonstrate no significant mucosal thickening or fluid. ORBITS: Limited views are unremarkable. OTHER: Negative. CONCLUSION: 1. Foci of abnormal signal on FLAIR imaging raise possibility of remote infectious or inflammatory process versus demyelinating disease. 2. There is no evidence of acute ischemia. Dictated by: Faith Monroe MD on 04/02/2024 at 11:49 Approved by: Faith Monroe MD on 04/02/2024 at 11:53 Normal [facility] CNOVon 03-25-2024 CNOV Office Visit (INTMWS ) -------- MARJORIE GRAHAM ([id number]) 1950 F NFR Date Time Provider Department 03/25/24 9:40 AM FIFI GREEN INTMWS During your visit today, we recorded the following information about you: Temperature Pulse Respiration Blood pressure 98 degrees 76/minute 16/minute 126/80 Weight 85.8 kg Fifi Green MD 03/25/2024 12:22 PM Signed This note was created using [employer]orvillageriter. Subjective Marjorie Graham is a 73 year old female. Patient presents with: F/U 6 months: Labs prior SUBJECTIVE: Marjorie Graham is a 73 year old year old lady here today for 6 month follow up appointment for review of medical conditions. The patient is a 73-year-old female with a history of fibromyalgia and DM, presenting for a 6-month follow-up. The patient reports ongoing issues with chronic sinusitis, for which she has been treated with two courses of antibiotics and prednisone over the summer. She notes that the prednisone was tapered, but she experienced significant side effects, including swelling of her hands and exacerbation of her fibromyalgia symptoms, leading to diffuse myalgia. She reports that her had to quarter the prednisone tablets due to her inability to tolerate the full 20 mg dose at once. Despite these treatments, she continues to experience sinus congestion, particularly on one side, and has been using a neti pot daily without relief. She has also been receiving sinus massages from her massage therapist and pig farmer, but these have not been sufficient to alleviate her symptoms. She is scheduled for a sinusoplasty on April [address] Casey in [place]. She inquired about the need for prophylactic antibiotics due to her history of bilateral knee replacements, and was informed that antibiotics would be administered intravenously during the procedure. The patient also reports a recent increase in her blood glucose levels, with a recent HbA1c of 9.4%. She attributes this to the recent courses of prednisone and ongoing infection. She is currently taking metformin, but reports difficulty adhering to the prescribed dose of four tablets per day due to gastrointestinal side effects, including diarrhea. She denies symptoms of polydipsia, but reports polyuria, which she notes is her baseline. The patient also inquires about the need for a flu shot and a potential fifth COVID-19 vaccination, as she is planning a cruise on April 18. She reports no adverse reactions to previous COVID-19 vaccinations. She also inquires about the need for a second RSV vaccination, having received her first last year. The patient reports that her fibromyalgia symptoms have been exacerbated by the recent courses of prednisone. She is currently managing her symptoms with acupuncture, massage therapy, and Tylenol Arthritis. She inquires about the use of Celebrex in conjunction with Tylenol Arthritis for pain management. She also inquires about the potential benefits of seeing a assault amphibious vehicle crewman for her fibromyalgia. The patient reports that her bladder symptoms have improved with the use of Myrbetriq 25 mg daily. She had started physical therapy for her bladder, but discontinued due to feeling unwell. She plans to resume therapy after her upcoming surgery and cruise. She also requests a refill of her scopolamine patches for her upcoming cruise. PAST MEDICAL HISTORY Diagnosis Date Abdominal pain, epigastric Abdominal pain, left lower quadrant Acute gastritis without mention of hemorrhage Allergic rhinitis, cause unspecified Allergic rhinitis Diaphragmatic hernia without mention of obstruction or gangrene DM type 2 (diabetes mellitus, type 2) (HCC) Esophageal reflux 07/24/2005 Esophagitis, unspecified Intestinal disaccharidase deficiencies and disaccharide malabsorption Malignant neoplasm of breast (female), unspecified site 07/02/1985 Breast cancer Morbid obesity (HCC) Myalgia and myositis, unspecified Obesity (BMI 30-39.9) Pure hypercholesterolemia Unspecified constipation Unspecified essential hypertension Unspecified hypothyroidism Unspecified sinusitis (chronic) Chronic sinusitis Urge incontinence of urine Current Outpatient Medications Medication Sig beta-carotene,A,-vits C,E/mins (OCUVITE ORAL) Take 1 capsule by mouth once daily. mirabegron (MYRBETRIQ) 25 mg Tb24 Take 1 tablet by mouth once daily. benzonatate (TESSALON PERLES) 100 mg capsule Take 1-2 capsules by mouth three times a day as needed. albuterol (PROVENTIL) 2.5 mg /3 mL (0.083 %) nebulizer solution Use 3 mL via nebulizer every 4 hours as needed for wheezing/shortness of breath. meclizine (ANTIVERT) 25 mg tab TAKE ONE TABLET BY MOUTH EVERY 6 HOURS NEEDED FOR DIZZINESS albuterol HFA (VENTOLIN HFA) 90 mcg/actuation inhaler Inhale 2 Puffs as instructed every 4 hours as needed. hyoscyamin (more content not included)... Normal [facility] CBC + DIFFon 03-21-2024 Baso # 0.03 x10EE3/UL Normal 0.00 - 0.10 [facility] Comment on above: Performed By: #### 2 70692 #### [facility],[address] [place], [place] [id number] Basophils/100 WBC (Bld) 0.4 % Normal 0.0 - 2.0 [facility] Comment on above: Performed By: #### 2 70545 #### [facility],[address] [place] [address] CBC + DIFF Normal [facility] Comment on above: Result Comment: CBC- COMPLETE BLOOD COUNT Performed By: #### 2 47121 #### [facility],[address] [place] [address] EO # 0.18 x10EE3/UL Normal 0.00 - 0.50 [facility] Comment on above: Performed By: #### 2 82151 #### [facility],[address] [place] [address] Eosinophils/100 WBC (Bld) 3.2 % Normal 0.0 - 7.0 [facility] Comment on above: Performed By: #### 2 96446 #### [facility],[address] [place] [address] Erythrocyte distribution width (RBC) [Ratio] 13.3 % Normal 12.0 - 15.6 [facility] Comment on above: Performed By: #### 2 16555 #### [facility],[address] [place] [address] Hematocrit (Bld) [Volume fraction] 37.2 % Normal 34.0 - 46.0 [facility] Comment on above: Performed By: #### 2 47234 #### [facility],[address] [place] [address] Hemoglobin (Bld) [Mass/Vol] 12.7 g/dL Normal 12.0 - 16.0 [facility] Comment on above: Performed By: #### 2 06657 #### [facility],[address] [place] [address]21 Lymph # 1.52 x10EE3/UL Normal 0.80 - 2.80 [facility] Comment on above: Performed By: #### 2 39437 #### [facility],[address] [place] [address] Lymphocytes/100 WBC (Bld) 26.5 % Normal 20.0 - 45.0 [facility] Comment on above: Performed By: #### 2 65230 #### [facility],[address] [place] [address] MANUAL DIFF N/A Normal [facility] Comment on above: Performed By: #### 2 92431 #### [facility],[address] [place] [address] MCH (RBC) [Entitic mass] 30 pg Normal 27 - 33 [facility] Comment on above: Performed By: #### 2 58645 #### [facility],[address] [place] [address] MCHC 34 X10 3 Normal 32 - 36 [facility] Comment on above: Performed By: #### 2 64754 #### [facility],[address] [place] [address] MCV (RBC) [Entitic vol] 87 fL Normal 80 - 99 [facility] Comment on above: Performed By: #### 2 82289 #### [facility],[address] [place] [address] Nelson # 0.36 x10EE3/UL Normal 0.20 - 1.00 [facility] Comment on above: Performed By: #### 2 64713 #### [facility],[address] [place] [address] MONOS % 6.3 % Normal 0.0 - 10.0 [facility] Comment on above: Performed By: #### 2 29144 #### [facility],[address] [place] [address] 87843 Morphology Anish (Bld) [Interp] N/A Normal [facility] Comment on above: Performed By: #### 2 06495 #### [facility],[address] [place] [address] Neut # 3.64 x10EE3/UL Normal 1.50 - 7.10 [facility] Comment on above: Performed By: #### 2 55686 #### [facility],[address] [place] [address]24[address] Neutrophils/100 WBC (Bld) 63.6 % Normal 46.0 - 76.0 [facility] Comment on above: Performed By: #### 2 54267 #### [facility],[address] [place] [address] 05823 PLATELET 180 x10EE3/UL Normal 150 - 450 [facility] Comment on above: Performed By: #### 2 67253 #### [facility],[address] [place] [address] 60954 Platelet mean volume (Bld) [Entitic vol] 7.6 fL Normal 6.6 - 10.5 [facility] Comment on above: Result Comment: AUTO MATED DIFFERENTIAL Performed By: #### 2 35518 #### [facility],[address] [place] [address] 73249 RBC 4.26 x 10EE6/UL Normal 4.10 - 5.30 [facility] Comment on above: Performed By: #### 2 76034 #### [facility],[address] [place] [address] 36949 WBC 5.7 x 10EE3/UL Normal 4.5 - 10.8 [facility] Comment on above: Performed By: #### 2 15731 #### [facility],[address] [place] [address] 60455 CHEST 2 VIEWSon 03-21-2024 CHEST 2 VIEWS [place] [address] Patient: MARJORIE GRAHAM Phone#: : 1950 Age: 73 Gender: F Pt. Type: Out Account: [id number] Location: [facility] Ordering: MEGHNA SAAVEDRA Exam Date: 03/21/2024/12:52 Family Phys: TALBRYANTSAS Charge Code: 619250 Physician: [place] Order #: [id number] Dose#: PROCEDURE: X-RAY CHEST 2 VIEWS COMPARISON: [facility], XR, CHEST 1 VIEW, 12/12/2023, 9:33. INDICATIONS: Pre-operative cardiac testing. FINDINGS: LUNGS: Normal. No significant pulmonary parenchymal abnormalities. VASCULATURE: Normal. Unremarkable pulmonary vasculature. CARDIAC: Normal. No cardiac silhouette abnormality or cardiomegaly. MEDIASTINUM: Retrocardiac air-fluid level, most consistent with a moderate sized hiatal hernia. PLEURA: Normal. No effusion or pleural thickening. BONES: Degenerative changes of the spine OTHER: Negative. CONCLUSION: 1. Moderate sized hiatal hernia Dictated by: Lanette Shane MD on 03/21/2024 at 15:09 Approved by: Lanette Shane MD on 03/21/2024 at 15:13 Normal [facility] CMP with eGFRon 03-21-2024 AGE 73 years Normal [facility] Comment on above: Performed By: #### 2 26740 ####[facility],[address] [place] [address]06 Albumin [Mass/Vol] 3.5 g/dL Normal 3.4 - 5.0 [facility] Comment on above: Performed By: #### 2 52448 ####[facility],[address] [place] [address] Albumin/Globulin [Mass ratio] 1.1 {ratio} Normal 0.9 - 1.6 [facility] Comment on above: Performed By: #### 2 76575 ####[facility],[address] [place] [address] ALK PHOS 79 U/L Normal 46 - 116 [facility] Comment on above: Performed By: #### 2 41745 ####[address] [address] ALT [Catalytic activity/Vol] 27 U/L Normal 16 - 63 [facility] Comment on above: Performed By: #### 2 37476 ####[address] [address] Anion gap [Moles/Vol] 16 mmol/L Normal 10 - 20 [facility] Comment on above: Performed By: #### 2 16141 ####[facility],[address] [place] [address] 38346 AST [Catalytic activity/Vol] 18 U/L Normal 13 - 39 [facility] Comment on above: Performed By: #### 2 59744 ####[facility],[address] [place] [address] B/C RATIO 13 ratio Normal 0 - 30 [facility] Comment on above: Performed By: #### 2 93333 ####[facility],[address] [place] [address]379 Bilirubin [Mass/Vol] 0.4 mg/dL Normal 0.2 - 1.0 [facility] Comment on above: Performed By: #### 2 29565 ####[facility],[address] [place] [address] Calcium [Mass/Vol] 9.1 mg/dL Normal 8.5 - 10.1 [facility] Comment on above: Performed By: #### 2 96168 ####[facility],[address] [place], [place] [address] Chloride [Moles/Vol] 101 mmol/L Normal 98 - 107 [facility] Comment on above: Performed By: #### 2 33280 ####[facility],[address] [place] [address] CMP with eGFR Normal [facility] Comment on above: Result Comment: COMP REHENSIVE METABOLIC PANEL Performed By: #### 2 71943 ####[facility],[address] [place] [address] 31808 CO2 [Moles/Vol] 26.2 mmol/L Normal 21.0 - 32.0 [facility] Comment on above: Performed By: #### 2 54135 ####[facility],[address] [place], [place] [address] Creatinine [Mass/Vol] 0.96 mg/dL Normal 0.55 - 1.02 [facility] Comment on above: Performed By: #### 2 06529 ####[facility],[address] [place] [address] 13274 eGFR 57 ML/MINUTE Low 60 - 999 [facility] Comment on above: Performed By: #### 2 65899 ####[facility],[address] [place] [address] GFR/1.73 sq M.predicted among non-blacks MDRD (S/P/Bld) [Vol rate/Area] mL/min/{1.73_m2} Normal 60 - 999 [facility] Comment on above: Result Comment: ACCO RDING TO THE NATIONAL KIDNEY DISEASE EDUCATION PROGRAM(NKDE), A NORMAL eGFR IS A VALUE GREATER THAN OR EQUAL TO 60 ML/MIN/1.73 SQ METERS. CHRONIC KIDNEY DISEASE: <60mL/MIN/1.73 SQ METERS KIDNEY FAILURE: <15mL/MIN/1.73 SQ METERS THIS TEST SHOULD ONLY BE USED FOR PATIENTS 18 YEARS OF AGE AND OLDER. Performed By: #### 2 58431 ####[facility],[address] [place] [address] Globulin (S) [Mass/Vol] 3.3 g/dL Normal 1.5 - 3.8 [facility] Comment on above: Performed By: #### 2 79285 ####[facility],[address] [place] [address] 59843 Glucose [Mass/Vol] 322 mg/dL High 74 - 106 [facility] Comment on above: Performed By: #### 2 36009 ####[address] [address] Potassium [Moles/Vol] 3.8 mmol/L Normal 3.5 - 5.1 [facility] Comment on above: Performed By: #### 2 29376 ####[facility],[address] [place], [place] [address] Protein [Mass/Vol] 6.8 g/dL Normal 6.4 - 8.2 [facility] Comment on above: Performed By: #### 2 51019 ####[facility],[address] [place] [address] Sodium [Moles/Vol] 139 mmol/L Normal 136 - 145 [facility] Comment on above: Performed By: #### 2 54169 ####[facility],[address] [place] [address] 73193 Urea nitrogen [Mass/Vol] 12 mg/dL Normal 7 - 18 [facility] Comment on above: Performed By: #### 2 50749 ####[facility],[address] [place] [address] 96093 ALBUMIN/CREATININE RATIO, UR INEon 03-20-2024 Albumin DL <= 20 mg/L (U) [Mass/Vol] mg/dL Normal [facility] Comment on above: Order Comment: Speci men Type: URINE SPECIMENOrdering Facility: [facility] Address: [address] [place] [address] Performed By: #### U ACR ####[facility]CLIA [id number] [place] [address] [place] Albumin/Creatinine (U) [Mass ratio] <9 Normal <30 [facility] Comment on above: Order Comment: Speci men Type: URINE SPECIMENOrdering Facility: [facility] Address: [address] [place] [address] Result Comment: Adul t Male and Female Nephrotic Criteria: <30 mg/g is considered normal to mildly increased 30-300 mg/g is considered moderately increased >300 mg/g is considered severely increased KDIGO. (2013). KDIGO 2012 Clinical Practice Guideline for the Evaluation and Management of Chronic Kidney Disease. Official Journal of the International Society of Nephrology, 3(1), 1-150. Performed By: #### U ACR ####[facility]CLIA [id number] [place] [address] [place] Creatinine (U) [Mass/Vol] 131.6 mg/dL Normal 20.0-300.0 [facility] Comment on above: Order Comment: Speci men Type: URINE SPECIMENOrdering Facility: [facility] Address: [address] [place] [address] Performed By: #### U ACR ####[facility]CLIA [id number] [place] [address] [place] CBC panel Auto (Bld)on 03-20 Erythrocyte distribution width (RBC) [Ratio] 13.2 % Normal 11.5-15.0 [facility] Comment on above: Order Comment: Speci men Type: BLOOD SPECIMEN Ordering Facility: [facility] Address: [address] [place] [address] Performed By: #### 5 8410-2 #### [facility] CLIA [id number] [address] [place] [address] [place] Hematocrit (Bld) [Volume fraction] 39.0 % Normal 36.0-46.0 [facility] Comment on above: Order Comment: Speci men Type: BLOOD SPECIMEN Ordering Facility: [facility] Address: [address] [place] [address] Performed By: #### 5 8410-2 #### [facility] CLIA [id number] [address] [place] [address] [place] Hemoglobin (Bld) [Mass/Vol] 12.8 g/dL Normal 11.5-15.5 [facility] Comment on above: Order Comment: Speci men Type: BLOOD SPECIMEN Ordering Facility: [facility] Address: [address] [place] [address] Performed By: #### 5 8410-2 #### [facility] CLIA [id number] [address] [place] [address] [place] MCH (RBC) [Entitic mass] 29.2 pg Normal 26.0-34.0 [facility] Comment on above: Order Comment: Speci men Type: BLOOD SPECIMEN Ordering Facility: [facility] Address: [address] [place] [address] Performed By: #### 5 8410-2 #### [facility] CLIA [id number] [address] [place] [address] [place] MCHC (RBC) [Mass/Vol] 32.8 g/dL Normal 30.5-36.[address] [facility] Comment on above: Order Comment: Speci men Type: BLOOD SPECIMEN Ordering Facility: [facility] Address: [address] [place] [address] Performed By: #### 5 8410-2 #### [facility] CLIA [id number] [address] [place] [address] [place] MCV (RBC) [Entitic vol] 89.0 fL Normal 80.0-100.0 [facility] Comment on above: Order Comment: Speci men Type: BLOOD SPECIMEN Ordering Facility: [facility] Address: [address] [place] [address] Performed By: #### 5 8410-2 #### [facility] CLIA [id number] [address] [place] [address] [place] Nucleated RBC (Bld) [#/Vol] 10*3/uL Normal <0.01 [facility] Comment on above: Order Comment: Speci men Type: BLOOD SPECIMEN Ordering Facility: [facility] Address: [address] [place] [address] Performed By: #### 5 8410-2 #### [facility] CLIA [id number] [address] [place] [address] [place] Platelet mean volume (Bld) [Entitic vol] 10.3 fL Normal 9.0-12.7 [facility] Comment on above: Order Comment: Speci men Type: BLOOD SPECIMEN Ordering Facility: [facility] Address: [address] [place] [address] Performed By: #### 5 8410-2 #### [facility] CLIA [id number] [address] [place] [address] [place] Platelets (Bld) [#/Vol] 207 10*3/uL Normal 150-400 [facility] Comment on above: Order Comment: Speci men Type: BLOOD SPECIMEN Ordering Facility: [facility] Address: [address] [place] [address] Performed By: #### 5 8410-2 #### [facility] CLIA [id number] [address] [place] [address] [place] RBC (Bld) [#/Vol] 4.38 10*6/uL Normal 3.90-5.20 [facility] Comment on above: Order Comment: Speci men Type: BLOOD SPECIMEN Ordering Facility: [facility] Address: [address] [place] [address] Performed By: #### 5 8410-2 #### [facility] CLIA [id number] [address] [place] [address] [place] WBC (Bld) [#/Vol] 5.56 10*3/uL Normal 3.70-11.00 [facility] Comment on above: Order Comment: Speci men Type: BLOOD SPECIMEN Ordering Facility: [facility] Address: [address] [place] [address] Performed By: #### 5 8410-2 #### [facility] CLIA [id number] [address] [place] [address] [place] Comprehensive metabolic 2000 panelon 03-20-2024 Albumin [Mass/Vol] 4.0 g/dL Normal 3.9-4.9 [facility] Comment on above: Order Comment: Speci men Type: BLOOD SPECIMENOrdering Facility: [facility] Address: [address] [place] [address] Performed By: #### 2 4323-8, 92859-4, 30210-06, 305-0 ####[facility] LABCLIA [id number] [address] [address] [place] ALP [Catalytic activity/Vol] 76 U/L Normal 34-123 [facility] Comment on above: Order Comment: Speci men Type: BLOOD SPECIMENOrdering Facility: [facility] Address: [address] [place] [address] Performed By: #### 2 4323-8, 04488-8, 3023-12, 3050-0 ####[facility]CLIA [id number] [address] [address] [place] ALT [Catalytic activity/Vol] 20 U/L Normal 7-38 [facility] Comment on above: Order Comment: Speci men Type: BLOOD SPECIMENOrdering Facility: [facility] Address: [address] [place] [address] Performed By: #### 2 4323-8, 37295-1, 3023-12, 3050-0 ####[facility]CLIA [id number] [address] [address] [place] Anion gap [Moles/Vol] 10 mmol/L Normal 8-[address] [facility] Comment on above: Order Comment: Speci men Type: BLOOD SPECIMENOrdering Facility: [facility] Address: [address] [place] [address] Performed By: #### 2 4323-8, 06950-7, 3023-12, 3050-0 ####[facility]CLIA [id number] [address] [address] [place] AST [Catalytic activity/Vol] 20 U/L Normal 13-35 [facility] Comment on above: Order Comment: Speci men Type: BLOOD SPECIMENOrdering Facility: [facility] Address: [address] [place] [address] Performed By: #### 2 4323-8, 78895-7, 3023-12, 3050-0 ####[facility]CLIA [id number] [address] [address] [place] Bilirubin [Mass/Vol] 0.4 mg/dL Normal 0.2-1.3 [facility] Comment on above: Order Comment: Speci men Type: BLOOD SPECIMENOrdering Facility: [facility] Address: [address] [place] [address] Performed By: #### 2 4323-8, 29589-9, 7, 305-0 ####[facility]CLIA [id number] [address] [address] [place] Calcium [Mass/Vol] 9.6 mg/dL Normal 8.5-10.2 [facility] Comment on above: Order Comment: Speci men Type: BLOOD SPECIMENOrdering Facility: [facility] Address: [address] [place] [address] Performed By: #### 2 4323-8, 28746-4, 3023-12, 3050-0 ####[facility] LABIA [id number] [place] [address] [place] Chloride [Moles/Vol] 104 mmol/L Normal 98-107 [facility] Comment on above: Order Comment: Speci men Type: BLOOD SPECIMENOrdering Facility: [facility] Address: [address] [place] [address] Performed By: #### 2 4323-8, 49051-4, 3023-12, 3050-0 ####[facility]CLIA [id number] [address] [address] [place] CO2 [Moles/Vol] 26 mmol/L Normal 22-30 [facility] Comment on above: Order Comment: Speci men Type: BLOOD SPECIMENOrdering Facility: [facility] Address: [address] [place] [address] Performed By: #### 2 4323-8, 26673-5, 7, 305-0 ####[facility]IA [id number] [address] [address] [place] Creatinine [Mass/Vol] 0.61 mg/dL Normal 0.58-0.[address] [facility] Comment on above: Order Comment: Mini molina Type: BLOOD SPECIMENOrdering Facility: [facility] Address: [address] [place] [address] Performed By: #### 2 4323-8, 33051-4, 3024-7, 305-0 ####[facility]IA [id number] [place] [address] [place] Creatinine and Glomerular filtration rate.predicted panel (S/P/Bld) 93 mL/min/1.73m??? Normal >=60 [facility] Comment on above: Order Comment: Mini molina Type: BLOOD SPECIMENOrdering Facility: [facility] Address: [address] [place] [address] Result Comment: Josee mated Glomerular Filtration Rate (eGFR) is calculated using the 2020 CKD-EPI creatinine equation. This equation utilizes serum creatinine, sex, and age as parameters. The creatinine assay has traceable calibration to isotope dilution-mass spectrometry. Refer to KDIGO guidelines for clinical interpretation. In patients with unstable renal function, e.g. those with acute kidney injury, the eGFR may not accurately reflect actual GFR. Performed By: #### 2 4323-8, 32987-3, 3024-7, 305-0 ####[facility]IA [id number] [place] [address] [place] Glucose [Mass/Vol] 251 mg/dL High 74-99 [facility] Comment on above: Order Comment: Mini molina Type: BLOOD SPECIMENOrdering Facility: [facility] Address: [address] [place] [address] Result Comment: The [place] Diabetes Association (ADA) provides guidance for cutoff values for fasting glucose and random glucose. The ADA defines fasting as no caloric intake for at least 8 hours. Fasting plasma glucose results between 100 to 125 mg/dL indicate increased risk for diabetes (prediabetes). Fasting plasma glucose results greater than or equal to 126 mg/dL meet the criteria for diagnosis of diabetes. In the absence of unequivocal hyperglycemia, results should be confirmed by repeat testing. In a patient with classic symptoms of hyperglycemia or hyperglycemic crisis, random plasma glucose results greater than or equal to 200 mg/dL meet the criteria for diagnosis of diabetes. Reference: Standards of Medical Care in Diabetes 2016, [place] Diabetes Association. Diabetes Care. 2016.39(Suppl 1). Performed By: #### 2 4323-8, 55482-1, 7, 305-0 ####[facility]IA [id number] [address] [address] [place] Potassium [Moles/Vol] 4.2 mmol/L Normal 3.7-5.[address] [facility] Comment on above: Order Comment: Speci men Type: BLOOD SPECIMENOrdering Facility: [facility] Address: [address] [place] [address] Performed By: #### 2 4323-8, 86016-3, 3023-12, 3050-0 ####[facility] [id number] [place] [id number] [place] Protein [Mass/Vol] 6.4 g/dL Normal 6.3-8.0 [facility] Comment on above: Order Comment: Speci men Type: BLOOD SPECIMENOrdering Facility: [facility] Address: [address] [place] [address] Performed By: #### 2 4323-8, 45880-9, 3023-12, 3050-0 ####[facility] [id number] [place] [id number] [place] Sodium [Moles/Vol] 140 mmol/L Normal 136-144 [facility] Comment on above: Order Comment: Speci men Type: BLOOD SPECIMENOrdering Facility: [facility] Address: [address] [place] [address] Performed By: #### 2 4323-8, 51238-2, 3024-7, 305-0 ####[facility]CLIA [id number] [address] [address] [place] Urea nitrogen [Mass/Vol] 11 mg/dL Normal 7-21 [facility] Comment on above: Order Comment: Mini men Type: BLOOD SPECIMENOrdering Facility: [facility] Address: [address] [place] [address] Performed By: #### 2 4323-8, 63460-6, 3023-7, 3050-0 ####[facility]CLIA [id number] [address] [address] [place] HbA1c (Bld)on 03-20-2024 Average glucose Estimated from glycated hemoglobin (Bld) [Mass/Vol] 223 mg/dL Normal [facility] Comment on above: Order Comment: Louisei men Type: BLOOD SPECIMEN Ordering Facility: [facility] Address: [address] [place] [address] Result Comment: eAG: (Estimated average glucose) is a calculated value from HgbA1c and is policy services representative of the average blood glucose level in the last 2-3 month period. Performed By: #### 2 4323-8 #### [facility] CLIA [id number] [address] [place] [address] [place] HbA1c (Bld) [Mass fraction] 9.4 % High 4.3-5.6 [facility] Comment on above: Order Comment: Speci men Type: BLOOD SPECIMEN Ordering Facility: [facility] Address: [address] [place] [address] Result Comment: [place] Diabetes Association guidelines indicate that patients with HgbA1c in the range 5.7-6.4% are at increased risk for development of diabetes, and intervention by lifestyle modification may be beneficial. HgbA1c greater or equal to 6.5% is considered diagnostic of diabetes. Performed By: #### 2 4323-8 #### [facility] CLIA [id number] [address] [place] [address] [place] Lipid 1996 panelon 4 Cholesterol [Mass/Vol] 141 mg/dL Normal <200 [facility] Comment on above: Order Comment: Speci men Type: BLOOD SPECIMENOrdering Facility: [facility] Address: [address] [place] [address] Result Comment: <200 mg/dL, Desirable 200-239 mg/dL, Borderline high >239 mg/dL, High Performed By: #### 2 4323-8, 14110-5, 3024-7, 3051-0 ####[facility]CLIA [id number] [address] [place] Cholesterol in HDL [Mass/Vol] 49 mg/dL Normal >39 [facility] Comment on above: Order Comment: Louisei men Type: BLOOD SPECIMENOrdering Facility: [facility] Address: [address] [place] [address] Result Comment: 40-5 9 mg/dL, Acceptable >59 mg/dL, High: Negative risk factor for coronary heart disease <40 mg/dL, Low: Positive risk factor for coronary heart disease Performed By: #### 2 4323-8, 99574-6, 3024-7, 3051-0 ####[facility] LABCLIA [id number] [place] [id number] [facility] Cholesterol in LDL [Mass/Vol] 63 mg/dL Normal <100 [facility] Comment on above: Order Comment: Speci men Type: BLOOD SPECIMENOrdering Facility: [facility] Address: [address] [place] [address] Result Comment: <100 mg/dL, Optimal 100-129 mg/dL, Near optimal/above optimal 130-159 mg/dL, Borderline high 160-189 mg/dL, High >189 mg/dL, Very high Secondary prevention optimal LDL Cholesterol levels are recommended to be < 70 mg/dL Performed By: #### 2 4323-8, 61334-1, 3024-7, 3051-0 ####[facility] LABCLIA [id number] [address] [address] [place] Cholesterol in LDL/Cholesterol in HDL [Mass ratio] 1.29 {ratio} Normal <2.54 [facility] Comment on above: Order Comment: Mini molina Type: BLOOD SPECIMENOrdering Facility: [facility] Address: [address] [place] [address] Result Comment: Velia silva: 1. National Cholesterol Education Program ATP III Guideline At-A-Glance Quick Desk Reference: National Heart, Lung, and Blood [place]. National Institutes of Health. 2001: NIH Publication No. 01-3305. 2. An International Atherosclerosis Society position paper: global recommendations for the management of dyslipidemia: executive summary, Atherosclerosis. 2014: 232(2):410-413. Performed By: #### 2 4323-8, 99964-6, 3023-7, 305-0 ####[facility] LABCLIA [id number] [address] [place] Cholesterol in VLDL [Mass/Vol] 29 mg/dL Normal <30 [facility] Comment on above: Order Comment: Mini molina Type: BLOOD SPECIMENOrdering Facility: [facility] Address: [address] [place] [address] Performed By: #### 2 4323-8, 67182-3, 7, 305-0 ####[facility] LABCLIA [id number] [address] [place] Cholesterol non HDL [Mass/Vol] 92 mg/dL Normal <130 [facility] Comment on above: Order Comment: Mini tracy Type: BLOOD SPECIMENOrdering Facility: [facility] Address: [address] [place] [address] Result Comment: <130 mg/dL, Optimal 130-159 mg/dL, Near optimal/above optimal 160-189 mg/dL, Borderline high 190-219 mg/dL, High >219 mg/dL, Very high Secondary prevention optimal non HDL Cholesterol levels are recommended to be <100 mg/dL Performed By: #### 2 4323-8, 90001-2, 3024-7, 3051-0 ####[facility] LABCLIA [id number] [address] [address] [place] Cholesterol.total/Cho lesterol in HDL [Mass ratio] 2.88 {ratio} Normal <5.10 [facility] Comment on above: Order Comment: Speci men Type: BLOOD SPECIMENOrdering Facility: [facility] Address: [address] [place] [address] Performed By: #### 2 4323-8, 24724-4, 3024-7, 3051-0 ####[facility] LABIA [id number] [place] [address] [place] FASTING TIME [address] [facility] Comment on above: Order Comment: Speci men Type: BLOOD SPECIMENOrdering Facility: [facility] Address: [address] [place] [address] Performed By: #### 2 4323-8, 89747-5, 3024-7, 3051-0 ####[facility] [id number] [place] [address] [place] Triglyceride [Mass/Vol] 147 mg/dL Normal <150 [facility] Comment on above: Order Comment: Speci men Type: BLOOD SPECIMENOrdering Facility: [facility] Address: [address] [place] [address] Result Comment: <150 mg/dL, Normal 150-199 mg/dL, Borderline high 200-499 mg/dL, High >499 mg/dL, Very high Performed By: #### 2 4323-8, 26092-1, 3024-7, 3051-0 ####[facility] [id number] [place] [id number] [place] T3Free SerPl-mCncon 03-20-20 24 Free T3 [Mass/Vol] 3.2 pg/mL Normal 2.3-4.1 [facility] Comment on above: Order Comment: Speci men Type: BLOOD SPECIMENOrdering Facility: [facility] Address: [address] [place] [address] Performed By: #### 2 4323-8, 87850-0, 3024-7, 3051-0 ####[facility] LABCLIA [id number] [place] [address] [place] T4 Free SerPl-mCncon 024 Free T4 [Mass/Vol] 1.4 ng/dL Normal 0.9-1.7 [facility] Comment on above: Order Comment: Speci men Type: BLOOD SPECIMENOrdering Facility: [facility] Address: [address] [place] [address] Performed By: #### 2 4323-8, 47381-7, 3024-7, 3051-0 ####[facility] LABCLIA [id number] [place] [address] [place] TSH SerPl-aCncon 03-20-2024 TSH Qn 2.210 m[IU]/L Normal 0.270-4.200 [facility] Comment on above: Order Comment: Speci men Type: BLOOD SPECIMEN Ordering Facility: [facility] Address: [address] [place] [address] Performed By: #### 2 4323-8 #### [facility] LAB CLIA [id number] [address] [place] [address] [place] [address] SINUSES W/O CONTRASTon CT SINUSES W/O CONTRAST [place] [address] Patient: MARJORIE GRAHAM Phone#: : [phone] Age: 73 Gender: F Pt. Type: Out Account: [id number] Location: 052 Ordering: MEGHNA SAAVEDRA Exam Date: 02/14/2024/14:27 Family Phys: TALBRYANTSAS Charge Code: 634115 Physician: [place] Order #: [id number] Dose#: 16.3 mGy PROCEDURE: CT SINUSES WITHOUT CONTRAST COMPARISON: None. INDICATIONS: Chronic maxillary sinusitis. TECHNIQUE: CT images were created without intravenous contrast. All CT scans at this facility use dose modulation, iterative reconstruction, and/or weight based dosing when appropriate to reduce radiation dose to as low as reasonably achievable. IV CONTRAST: No IV contrast used,0ml TOTAL DOSE: 16.3 CTDIvol(mGy) FINDINGS: MAXILLARY SINUSES: Mild mucosal thickening is present in the right maxillary sinus. Mucocele is present in the superior lateral aspect of the sinus with diameter 9 millimeters. ETHMOID SINUSES: Normal. No significant mucosal thickening or fluid. Fovea ethmoidali and lamina papyracea are symmetric and intact. SPHENOID SINUSES: Normal. No significant mucosal thickening or fluid. Sphenoethmoidal recesses are patent. No bony dehiscence. FRONTAL SINUSES: Normal. No significant mucosal thickening or fluid. Frontal recesses are patent. No anomalous frontal air cells. NASAL FOSSA: Normal. No septal perforation or deviation. No mick bullosa or paradoxical turbinates are identified. OTHER: Normal. Limited views of the skull base and orbits are unremarkable. CONCLUSION: 1. 9 millimeter right maxillary mucocele. 2. No other acute abnormality is identified. Dictated by: Faith Monroe MD on 02/14/2024 at 18:04 Approved by: Faith Monroe MD on 02/14/2024 at 18:08 Normal [facility] CNOVon 01-23-2024 CNOV Office Visit (INTMWS ) -------- MARJORIE GRAHAM ([id number]) 1950 F NFR Date Time Provider Department 01/23/24 2:00 PM [facility] During your visit today, we recorded the following information about you: Temperature Pulse Blood pressure Weight 100.1 degrees 73/minute 128/82 84.8 kg Augusto Bland APRN.TRAUMA COORDINATOR 01/23/2024 2:59 PM Signed SUBJECTIVE Marjorie Graham is a 73 year old female here today for a check up on her medical problems. Chief Complaint Patient presents with: URI: on going for about 6 weeks has had 3 rounds of antibiotic, 1 round of prednisone Cough continues dry non-productive body aches HPI Marjorie Graham is a 73 year old female. She is an established patient of Fifi Green MD. Here today for concerns of continued URI symptoms. 12/11 saw ER at [facility] for congestion, drainage. Prior treatment with azithromycin. Ct showed paranasal sinusitis, mucosal thickening. Given Augmentin for 10 days. 12/24 saw [facility], doxycycline and prednisone. Referred to ENT. Seen with [facility], recommended Flonase, sinus rinses, not improving. Had allergy testing. Cough is persistent. Her medications were reviewed today and her list is now up to date. Medications Current Outpatient Medications Medication Sig meclizine (ANTIVERT) 25 mg tab TAKE ONE TABLET BY MOUTH EVERY 6 HOURS NEEDED FOR DIZZINESS albuterol HFA (VENTOLIN HFA) 90 mcg/actuation inhaler Inhale 2 Puffs as instructed every 4 hours as needed. hyoscyamine (LEVSIN) 0.125 mg tablet Take 0.125 mg by mouth every 6 hours as needed. mirabegron (MYRBETRIQ) 25 mg Tb24 Take 1 tablet by mouth once daily. levothyroxine (SYNTHROID) 112 mcg tablet Take 1 tablet by mouth once daily. Take on empty stomach. For thyroid losartan-hydroCHLOROthia zide (HYZAAR) 100-25 mg per tablet Take 1 tablet by mouth once daily. metFORMIN ER (GLUCOPHAGE XR) 500 mg 24 hr tablet Taking total of 4 pills per day but in divided doses omeprazole (PRILOSEC) 40 mg capsule Take 1 capsule by mouth once daily. ondansetron orally disintegrating (ZOFRAN ODT) 4 mg disintegrating tablet Take 1 tablet by mouth every 8 hours as needed for nausea/vomiting. rosuvastatin (CRESTOR) 10 mg tablet Take 1 tablet by mouth once daily. phenazopyridine (PYRIDIUM) 200 mg tablet Take 1 tablet by mouth three times daily as needed. fluticasone (FLONASE) 50 mcg/actuation nasal spray Use 2 Sprays in each nostril once daily. As directed dicyclomine (BENTYL) 10 mg capsule Take 1 capsule by mouth twice daily as needed. buPROPion XL (WELLBUTRIN XL) 300 mg 24 hr tablet Take 1 tablet by mouth once daily. scopolamine (TRANSDERM-SCOP) patch 1.5 mg/72 hr (delivers 1 mg over 3 days) Apply 1 Patch as directed every 72 hours. Apply patch to skin behind ear 4hrs prior to travel. montelukast (SINGULAIR) 10 mg tablet Take 1 tablet by mouth daily at bedtime. celecoxib (CELEBREX) 200 mg capsule TAKE 1 TABLET BY MOUTH ONCE A DAY WITH FOOD ivermectin (SOOLANTRA) 1 % crea Apply 1 application to affected area once daily. multivitamin tablet Take 1 tablet by mouth once daily. Cholecalciferol, Vitamin D3, (VITAMIN D) 1,000 unit cap Take 1 capsule by mouth once daily. cholestyramine (QUESTRAN) 4 gram packet Take 1 Packet by mouth three times daily with meals. cetirizine (ZYRTEC) 10 mg tablet Take 10 mg by mouth once daily. acetaminophen 500 mg tablet Take 500 mg by mouth every 6 hours as needed. predniSONE (DELTASONE) 20 mg tablet 1 tablet three times a day for 3 days, then 2 times a day for 3 days, the one daily for 3 days. cefdinir (OMNICEF) 300 mg capsule Take 1 capsule by mouth two times a day for 14 days. fluconazole (DIFLUCAN) 150 mg tablet Take 1 tablet by mouth one time only for 1 dose. Repeat in 3 days as needed. benzonatate (TESSALON PERLES) 100 mg capsule Take 1-2 capsules by mouth three times a day as needed. albuterol (PROVENTIL) 2.5 mg /3 mL (0.083 %) nebulizer solution Use 3 mL via nebulizer every 4 hours as needed for wheezing/shortness of breath. No current facility-administered medications for this visit. ALLERGIES Allergen Reactions Aspirin Tinnitus, hearing loss AD when on mary jo doses. Is able to take ASA now without any reaction. Ciprofloxacin Hives reports hives now after completing cipro 06/23/2019 Metformin GI Upset made her ill; stomach upset with pain and diarrhea- has taken since with no issue Penicillins Unknown hives Sulfa (Sulfonamide * Unknown hives Zocor [Simvastatin] myalgias ACTIVE PROBLEM LIST Obesity, Class I, Bmi 30-34.9 - 03/11/2019 Bladder Irritability - 08/09/2018 Urge Incontinence of Urine - 08/09/2018 Type 2 Diabetes Mellitus Without Complication, Without Long-Term Current Use of Insulin (Hcc) Degenerative Joint Disease of Cervical Spine - 03/01/2015 Comment: anterolisthesis;Mild degenerative anterolisthesis (more content not included)... Normal [facility] Inital Evaluation (1) - PTon 01-14-2024 Inital Evaluation (1) - PT [facility] [address] [place] [address] / REHABILITATION SERVICES INITIAL EVALUATION MR#: [id number] Acct: [id number] Name: MARJORIE GRAHAM Rep #: [id number] : 1950 73 From: Valerie Perez PT, Terrence. MDT Referring Dr.: Dr. Consuelo Hilario MD Status: REG R Insurance: MEDICARE PART A B [facility] Patient's Visit Information Visit Information Visit Information: MARJORIE GRAHAM is a 73 year old F referred to Physical Therapy by Dr. Consuelo Hilario MD with a diagnosis of Stress Urinary Incontinence. Date of Evaluation: 12/07/23 Physical Therapist: Valerie Perez PT, Cert MDT Visit Plan Frequency: 1x/Week Duration: 2-4 Months Plan: PF THERAPY FOR STRENGTHENING, LENGTHENING/RELAXATION AND ENDURANCE TRAINING. URINARY URGE AND FREQUENCY EDUCATION. HEALTHY BLADDER HABIT EDUCATION. TRAINING IN COORDINATION OF PELVIC FLOOR MUSCULATURE WITH HIP AND CORE (TRANSVERSE ABDOMINUS) MUSCULATURE. CORE STRENGTHENING. ROGER LE ROM, STRETCHING AND STRENGTHENING. TRAINING IN ABDOMINAL CAVITY PRESSURE MGMT WITH ADL'S. Subjective Subjective: Work/Leisure: RETIRED. LIVES WITH . Present symptoms: URINARY INCONTINENCE. PATIENT REPORTS IT DOESN'T STOP HER FROM DOING ANYTHING - I JUST WEAR PADS. WEARING 2-3 PADS A DAY ON AVERAGE. Present since: ABOUT 4 YEARS Pain Scale: PATIENT DENIES PAIN Is it getting better, worse or staying the same: GETTING BETTER AT NIGHT WITH CURRENT MEDICATION - NEW MEDICATION STARTED ABOUT 3 MONTHS AGO Commenced as a result of: NO APPARENT REASON Worse: COUGHING, LIFTING, SNEEZING, WAITING TOO LONG TO GO TO THE BATHROOM Better: MEDICATION Disturbed sleep: CURRENTLY GETTING UP TO URINATE ABOUT 3 TIMES A NIGHT BUT WAS 5-6 TIMES. Previous history/Previous treatment: ONE OTHER MEDICATION IN THE PAST - IT JUST STOP WORKING. HYSTERECTOMY AND TUBAL . HAD URETHRA STRETCHED ABOUT 4 TIMES YOUNG ADULT TO ALLOW BLADDER TO EMPTY - NO LONGER HAVING DIFFICULTY - WAS CAUSING INFECTION. MOTHER, DAUGHTER AND BROTHER ALSO HAD TO HAVE THE PROCEEDURE. *Patient has had lumbar surgery by Dr. Roa for herniated disc a long time ago*. Treatment this episode: MEDICATION Gait: NORMAL How long can you delay the need to urinate: USUALLY ONE TO TWO MINUTES Prolapse (Falling out feeling): NO Frequency of Urination: ABOUT EVERY 2 HOURS Ability to stop urine flow: PATIENT ISN'T SURE Ability to initiate urine stream: YES Dyspareunia: NO Bowel Incontinence: YES - SEEING DR. MCGUIRE Accidents: NO Unexplained weight loss: NO Imaging: NONE RECENT PMH/Recent major surgery: Fibromyalgia (treated with acupuncture and massage). Back Surgery. H/O Polio as a child. Retrosternal pain Nausea Epigastric pain Constipation Diarrhea GERD (gastroesophageal reflux disease) Asthma Hypertension Diabetes Thyroid disease Hypercholesterolemia History of left breast cancer Nausea Epigastric pain Screening for intestinal cancer History of hysterectomy [history excision lipoma neck] [history choledochojejunostomy] History of left mastectomy History of bilateral knee replacement History of left salpingo-oophorectomy History of cholecystectomy History of appendectomy Objective Objective: Sitting/Standing Posture: ANTERIOR PELVIC TILT. FH. RSH'S. INCREASED KYPHOSIS. Other Observations: INDEP GAIT AND TRANSFERS Sensory deficit: ROGER LE LIGHT TOUCH SENSATION GROSSLY INTACT AND SYMMETRICAL ROM deficit: ROGER HIP FLEX, HS, HIP ADD, HIP ROTATOR AND CALF TIGHTNESS. Motor deficit: ROGER LE'S GROSSLY 4/5 EXCEPT ANKLES 5/5. PELVIC FLOOR STRENGTH TESTED 12/21/23: 2/5 X 3 SEC X 3 REPS. Dural Signs: NEGATIVE ROGER LE'S. Lumbar mvmt loss: flex - MOD ext - MOD R SG - MOD L SG - EARNESTINE PATIENT DENIES PAIN WITH LUMBAR ROM TESTING. STATES SHE HAS A TENDENCY TO HAVE SOME LBP BUT ONLY IF SHE OVER-DOES IT. Core strength: POOR Palpation: PATIIENT DEFERRED PELVIC EXAM TO A FUTURE [place] DUE TO BEING ON MEDICINE FOR RECENT ILLNESS AND NOT FEELING UP TO IT/LIKE HERSELF. 12/21/23: PATIENT AGREEABLE TO HAVE PELVIC FLOOR TESTED THIS DATE AND DID NOT HAVE PELVIC FLOOR TENDERNESS OR TRIGGER POINTS WITH EXAM. FUNCTIONAL SCREEN: Incontinence Impact Questionnaire Score: 0 Urogenital Distress Inventory Score: 7 Goals Goal 1:: DECREASE URINARY LEAKAGE EPISODES TO ONE OR LESS PER DAY Goal Time Frame: 8-12 Weeks Goal 2:: PATIENT WILL SUCCESSFULLY DELAY VOIDING LONG NEEDED WHEN URGENCY OCCURS TO SUCCESSFULLY MAKE IT TO THE BATHROOM. Goal Time Frame: 4-6 Weeks Goal 3:: PATIENT WILL DEMONSTRATE/COMMUNICATE 10 CONSISTENT AND CONSECUTIVE 10 SECOND PELVIC FLOOR MUSCLE CONTRACTIONS TO DEMONSTRATE IMPROVED PELVIC FLOOR ENDURANCE. Goal Time Frame: 8-12 Weeks Goal 4:: DEVELOP HEALTHY FLUID INTAKE HABITS WITH FLUID INTAKE OF ??? BODY (more content not included)... Normal [facility] XR Chest PA and Lateralon IMPRESSION: Left basilar mild atelectasis. Hiatal hernia. Forge Heater: SHAHLA Transcribe Date/Time: Dec 25 2023 8:22A Dictated by : SANDY PARRISH MD This examination was interpreted and the report reviewed and electronically signed by: SANDY PARRISH MD on Dec 25 2023 8:23AM [facility] DIVISION OF RADIOLOGY * * *Final Report* * * DATE OF EXAM: Dec 25 2023 8:22AM WOX [id number] - XR CHEST 2V FRONTAL/LAT / PROCEDURE REASON: multiple diagnoses * * * * Physician Interpretation * * * * EXAM TITLE: XR CHEST 2V FRONTAL/LAT EXAM DATE/TIME: 12/25/2023 8:22 AM COMPARISON: Chest x-ray on 08/17/2013 CLINICAL INDICATION/HISTORY: Sinobronchitis. RESULT: Lines, tubes, and devices: None. Lungs and pleura: Left basilar mild atelectasis is noted. No definite consolidation. No lung mass. No pleural effusion. Cardiomediastinal silhouette: Stable cardiac silhouette. There is a medium-sized hiatal hernia. Other: None. DIVISION OF RADIOLOGY Provider, [facility] - 12/25/2023 * * *Final Report* * * DATE OF EXAM: Dec 25 2023 8:22AM WOX [id number] - XR CHEST 2V FRONTAL/LAT / PROCEDURE REASON: multiple diagnoses * * * * Physician Interpretation * * * * EXAM TITLE: XR CHEST 2V FRONTAL/LAT EXAM DATE/TIME: 12/25/2023 8:22 AM COMPARISON: Chest x-ray on 08/17/2013 CLINICAL INDICATION/HISTORY: Sinobronchitis. RESULT: Lines, tubes, and devices: None. Lungs and pleura: Left basilar mild atelectasis is noted. No definite consolidation. No lung mass. No pleural effusion. Cardiomediastinal silhouette: Stable cardiac silhouette. There is a medium-sized hiatal hernia. Other: None. IMPRESSION IMPRESSION: Left basilar mild atelectasis. Hiatal hernia. Forge Heater: PSCB Transcribe Date/Time: Dec 25 2023 8:22A Dictated by : SANDY PARRISH MD This examination was interpreted and the report reviewed and electronically signed by: SANDY PARRISH MD on Dec 25 2023 8:23AM EST [facility] Radiology Study observation (narrative) [facility] XR Chest PA and LateralOrder ed By: [facility] Provider on 12-25-2023 [facility] Calprotectin, Stoolon [address] 84 ug/g Normal 0-120 [facility] Comment on above: Result Comment: Conc entration Interpretation Follow-Up < 5 - 50 ug/g Normal None >50 -120 ug/g Borderline Re-evaluate in 4-6 weeks >120 ug/g Abnormal Repeat as clinically indicated Performed at: [facility] [employer] [id number] Food Operations Manager: Kumar Britt MD, Phone: [phone] Performed By: #### L 7000.0700 #### [facility] [address] [place], [address] Celiac Disease Profileon ENDOMYSIAL IGA Negative Normal Negative [facility] Comment on above: Performed By: #### L 3410.2400, L501.6710 #### [facility] [address] [place], [address] IMMUNOGLOB A QN 162 mg/dL Normal 64-422 [facility] Comment on above: Result Comment: Perf ormed at: - [facility] [id number] Food Operations Manager: Jj Villanueva PhD, Phone: [phone] Performed By: #### L 3410.2400, L501.6710 #### [facility] [address] [place], [address] tTG IGA <2 Normal 0-3 [facility] Comment on above: Result Comment: Nega tive 0 - 3 Weak Positive 4 - 10 Positive >10 Tissue Transglutaminase (tTG) has been identified as the endomysial antigen. Studies have demonstr- ated that endomysial IgA antibodies have over 99% specificity for gluten sensitive enteropathy. Performed By: #### L 3410.2400, L501.6710 #### [facility] [address] [facility] [place], [address] No Panel InformationOrdered By: Jj Mcguire on 10-04-2023 Stool Calprotectin 84 ug/g 0-120 [facility] Comment on above: Concentration Interp retation Follow-Up< 5 - 50 ug/g Normal None>50 -120 ug/g Borderline Re-evaluate in 4-6 weeks >120 ug/g Abnormal Repeat as clinically indicatedPerformed at: [address] [id number] Director: Kumar Britt MD, Phone: [phone] CRPon 10-02-2023 C-REACTIVE PROT < 2.90 Normal 0.0-3.0 [facility] Comment on above: Result Comment: C-Re active Protein (CRP) provides useful information for the diagnosis, therapy and monitoring of inflammatory processes and associated diseases. For the evaluation of Relative Risk for Cardiovascular Disease, a High Sensitivity CRP (HSCRP) should be ordered. Performed By: #### L 3410.2400, L501.6710 #### [facility] [address] [facility] [place], [address] No Panel InformationOrdered By: Jj Mcguire on 10-02-2023 C-Reactive Protein Extended Range < 2.90 mg/L 0.0-3.0 [facility] Comment on above: C-Reactive Protein ( CRP) provides useful information for thediagnosis, therapy and monitoring of inflammatory processesand associated diseases. For the evaluation of Relative Riskfor Cardiovascular Disease, a High Sensitivity CRP (HSCRP)should be ordered. Endomysial IgA Antibody Negative Negative [facility] Serum or plasma IgA measurem ent (mass/volume)Ordered By: Jj Mcguire on 10-02-2023 IgA [Mass/Vol] 162 mg/dL 64-422 [facility] Comment on above: Performed at: [address] [id number] Director: Jj Villanueva PhD, Phone: [phone] Serum tissue transglutaminas e IgA antibody assay (units/volume)Ordered By: Jj Mcguire on 10-02-2023 tTG IgA Qn (S) <2 U/mL 0-3 [facility] Comment on above: Negative 0 - 3 Weak Positive 4 - 10 Positive >10 Tissue Transglutaminase (tTG) has been identified as the endomysial antigen. Studies have demonstr- ated that endomysial IgA antibodies have over 99% specificity for gluten sensitive enteropathy. Vital Signs Date Time Vital Sign Value Performing Clinician Facility 01-22-2025 14:08-0400 Body height 160 cm Henny Mckee MD Work Phone: [facility] 01-22-2025 14:08-0400 Body mass index (BMI) [Ratio] 30.3 kg/m2 Henny Mckee MD Work Phone: [facility] 01-22-2025 14:08-0400 Body weight 77.56 kg Henny Mckee MD Work Phone: [facility] 01-22-2025 14:08-0400 Diastolic blood pressure 83 mm[Hg] Henny Mckee MD Work Phone: [facility] 01-22-2025 14:08-0400 Heart rate 65 /min Henny Mckee MD Work Phone: [facility] 01-22-2025 14:08-0400 Systolic blood pressure 123 mm[Hg] Henny Mckee MD Work Phone: [facility] 01-21-2025 11:45-0400 Body height 160 cm Jorgito Rosasasan PA-C Work Phone: [facility] 01-21-2025 11:45-0400 Body mass index (BMI) [Ratio] 31.54 kg/m2 Jorgito Alisonasan PA-C Work Phone: [facility] 01-21-2025 11:45-0400 Body weight 80.74 kg Jorgito Alisnoasan PA-C Work Phone: [facility] 01-21-2025 11:45-0400 Diastolic blood pressure 85 mm[Hg] Jorgito Alisonasan PA-C Work Phone: [facility] 01-21-2025 11:45-0400 Heart rate 67 /min Jorgito Alisonasan PA-C Work Phone: [facility] 01-21-2025 11:45-0400 Systolic blood pressure 131 mm[Hg] Jorgito Alisonasan PA-C Work Phone: [facility] 01-14-2025 12:00-0400 Diastolic blood pressure 75 mm[Hg] Skinny Carey MD Work Phone: [facility] 01-14-2025 12:00-0400 Heart rate 64 /min Skinny Carey MD Work Phone: [facility] 01-14-2025 12:00-0400 Respiratory rate 16 /min Skinny Carey MD Work Phone: [facility] 01-14-2025 12:00-0400 SaO2% (BldA) [Mass fraction] 94 % Skinny Carey MD Work Phone: [facility] 01-14-2025 12:00-0400 Systolic blood pressure 130 mm[Hg] Skinny Carey MD Work Phone: [facility] 01-14-2025 10:12-0400 Body height 160 cm Skinny Carey MD Work Phone: [facility] 01-14-2025 08:00-0400 Body temperature 98.2 [degF] Skinny Carey MD Work Phone: [facility] 01-13-2025 19:18-0400 Body mass index (BMI) [Ratio] 31.56 kg/m2 Skinny Carey MD Work Phone: [facility] 01-13-2025 19:18-0400 Body weight 80.8 kg Skinny Carey MD Work Phone: [facility] 09-26-2024 10:36-0400 Body height 159 cm Fifi Green MD Work Phone: [facility] 09-26-2024 10:36-0400 Body mass index (BMI) [Ratio] 32.12 kg/m2 Fifi Green MD Work Phone: [facility] 09-26-2024 10:36-0400 Body weight 81.2 kg Fifi Green MD Work Phone: [facility] 09-26-2024 10:36-0400 Diastolic blood pressure 68 mm[Hg] Fifi Green MD Work Phone: [facility] 09-26-2024 10:36-0400 Heart rate 70 /min Fifi Green MD Work Phone: [facility] 09-26-2024 10:36-0400 Respiratory rate 16 /min Fifi Green MD Work Phone: [facility] 09-26-2024 10:36-0400 SaO2% (BldA) [Mass fraction] 98 % Fifi Green MD Work Phone: [facility] 09-26-2024 10:36-0400 Systolic blood pressure 118 mm[Hg] Fifi Green MD Work Phone: [facility] 06-27-2024 16:17-0500 Body mass index (BMI) [Ratio] 33.19 kg/m2 Fifi Green MD Work Phone: [facility] 06-27-2024 16:17-0500 Body temperature 97.3 [degF] Fifi Green MD Work Phone: [facility] 06-27-2024 16:17-0500 Body weight 82.3 kg Fifi Green MD Work Phone: [facility] 06-27-2024 16:17-0500 Diastolic blood pressure 72 mm[Hg] Fifi Green MD Work Phone: [facility] 06-27-2024 16:17-0500 Heart rate 74 /min Fifi Green MD Work Phone: [facility] 06-27-2024 16:17-0500 Respiratory rate 16 /min Fifi Green MD Work Phone: [facility] 06-27-2024 16:17-0500 SaO2% (BldA) [Mass fraction] 98 % Fifi Green MD Work Phone: [facility] 06-27-2024 16:17-0500 Systolic blood pressure 118 mm[Hg] Fifi Green MD Work Phone: [facility] 03-25-2024 10:05-0400 Body mass index (BMI) [Ratio] 34.6 kg/m2 Fifi Green MD Work Phone: [facility] 03-25-2024 10:05-0400 Body temperature 98.01 [degF] Fifi Green MD Work Phone: [facility] 03-25-2024 10:05-0400 Body weight 85.8 kg Fifi Green MD Work Phone: [facility] 03-25-2024 10:05-0400 Diastolic blood pressure 80 mm[Hg] Fifi Green MD Work Phone: [facility] 03-25-2024 10:05-0400 Heart rate 76 /min Fifi Green MD Work Phone: [facility] 03-25-2024 10:05-0400 Respiratory rate 16 /min Fifi Green MD Work Phone: [facility] 03-25-2024 10:05-0400 SaO2% (BldA) [Mass fraction] 100 % Fifi Green MD Work Phone: [facility] 03-25-2024 10:05-0400 Systolic blood pressure 126 mm[Hg] Fifi Green MD Work Phone: [facility] 01-23-2024 14:13-0400 Body mass index (BMI) [Ratio] 34.2 kg/m2 Augusto Johana FIRE CONTROL MECHANIC.TRAUMA COORDINATOR Work Phone: [facility] 01-23-2024 14:13-0400 Body temperature 100.09 [degF] Augusto Johana FIRE CONTROL MECHANIC.TRAUMA COORDINATOR Work Phone: [facility] 01-23-2024 14:13-0400 Body weight 84.82 kg Augusto Johana FIRE CONTROL MECHANIC.TRAUMA COORDINATOR Work Phone: [facility] 01-23-2024 14:13-0400 Diastolic blood pressure 82 mm[Hg] Augusto Johana FIRE CONTROL MECHANIC.TRAUMA COORDINATOR Work Phone: [facility] 01-23-2024 14:13-0400 Heart rate 73 /min Augusto Johana FIRE CONTROL MECHANIC.TRAUMA COORDINATOR Work Phone: [facility] 01-23-2024 14:13-0400 SaO2% (BldA) [Mass fraction] 96 % Augusto Johana FIRE CONTROL MECHANIC.TRAUMA COORDINATOR Work Phone: [facility] 01-23-2024 14:13-0400 Systolic blood pressure 128 mm[Hg] Augusto Johana FIRE CONTROL MECHANIC.TRAUMA COORDINATOR Work Phone: [facility] 12-25-2023 07:00-0400 Body mass index (BMI) [Ratio] 34.93 kg/m2 Duglas Hall FIRE CONTROL MECHANIC.MARKETING PLANNER Work Phone: [facility] 12-25-2023 07:00-0400 Body weight 86.64 kg Duglas Hall FIRE CONTROL MECHANIC.MARKETING PLANNER Work Phone: [facility] 12-25-2023 07:00-0400 Diastolic blood pressure 79 mm[Hg] Duglas Hall FIRE CONTROL MECHANIC.MARKETING PLANNER Work Phone: [facility] 12-25-2023 07:00-0400 Heart rate 65 /min Duglas Hall FIRE CONTROL MECHANIC.MARKETING PLANNER Work Phone: [facility] 12-25-2023 07:00-0400 Respiratory rate 16 /min Duglas Hall FIRE CONTROL MECHANIC.MARKETING PLANNER Work Phone: [facility] 12-25-2023 07:00-0400 SaO2% (BldA) [Mass fraction] 96 % Duglas Hall FIRE CONTROL MECHANIC.MARKETING PLANNER Work Phone: [facility] 12-25-2023 07:00-0400 Systolic blood pressure 125 mm[Hg] Duglas Hall FIRE CONTROL MECHANIC.MARKETING PLANNER Work Phone: [facility] 11-19-2023 13:49-0400 Body mass index (BMI) [Ratio] 35.3 kg/m2 Consuelo Hilario MD Work Phone: [facility] 11-19-2023 13:49-0400 Body weight 87.54 kg Consuelo Hilario MD Work Phone: [facility] 11-19-2023 13:49-0400 Diastolic blood pressure 72 mm[Hg] Consuelo Hilario MD Work Phone: [facility] 11-19-2023 13:49-0400 Systolic blood pressure 126 mm[Hg] Consuelo Hilario MD Work Phone: [facility] 09-25-2023 10:09-0400 Body height 157.5 cm Fifi Green MD Work Phone: [facility] 09-25-2023 10:09-0400 Body mass index (BMI) [Ratio] 34.75 kg/m2 Fifi Green MD Work Phone: [facility] 09-25-2023 10:09-0400 Body weight 86.18 kg Fifi Green MD Work Phone: [facility] 09-25-2023 10:09-0400 Diastolic blood pressure 74 mm[Hg] Fifi Green MD Work Phone: [facility] 09-25-2023 10:09-0400 Heart rate 80 /min Fifi Green MD Work Phone: [facility] 09-25-2023 10:09-0400 Respiratory rate 16 /min Fifi Green MD Work Phone: [facility] 09-25-2023 10:09-0400 Systolic blood pressure 120 mm[Hg] Fifi Green MD Work Phone: [facility] 09-18-2023 13:36-0400 Body height 158.1 cm Consuelo Hilario MD Work Phone: [facility] 09-18-2023 13:36-0400 Body weight 86.18 kg Consuelo Hilario MD Work Phone: [facility] 09-18-2023 13:36-0400 Diastolic blood pressure 82 mm[Hg] Consuelo Hilario MD Work Phone: [facility] 09-18-2023 13:36-0400 Systolic blood pressure 128 mm[Hg] Consuelo Hilario MD Work Phone: [facility] 08-06-2023 11:17-0500 Body weight 86.64 kg Duglas Hall FIRE CONTROL MECHANIC.MARKETING PLANNER Work Phone: [facility] 08-06-2023 11:17-0500 Diastolic blood pressure 82 mm[Hg] Duglas Hall FIRE CONTROL MECHANIC.MARKETING PLANNER Work Phone: [facility] 08-06-2023 11:17-0500 Heart rate 71 /min Duglas Hall FIRE CONTROL MECHANIC.MARKETING PLANNER Work Phone: [facility] 08-06-2023 11:17-0500 Respiratory rate 16 /min Duglas Hall FIRE CONTROL MECHANIC.MARKETING PLANNER Work Phone: [facility] 08-06-2023 11:17-0500 SaO2% (BldA) [Mass fraction] 95 % Duglas Hall FIRE CONTROL MECHANIC.MARKETING PLANNER Work Phone: [facility] 08-06-2023 11:17-0500 Systolic blood pressure 130 mm[Hg] Duglas Hall FIRE CONTROL MECHANIC.MARKETING PLANNER Work Phone: [facility] 07-21-2022 12:17-0500 Body height 157.5 cm Duglas Hall FIRE CONTROL MECHANIC.MARKETING PLANNER Work Phone: [facility] 07-21-2022 12:17-0500 Body weight 85.73 kg Duglas Hall FIRE CONTROL MECHANIC.MARKETING PLANNER Work Phone: [facility] 07-21-2022 12:17-0500 Diastolic blood pressure 83 mm[Hg] Duglas Hall FIRE CONTROL MECHANIC.MARKETING PLANNER Work Phone: [facility] 07-21-2022 12:17-0500 Heart rate 72 /min Duglas Hall FIRE CONTROL MECHANIC.MARKETING PLANNER Work Phone: [facility] 07-21-2022 12:17-0500 Respiratory rate 16 /min Duglas Hall FIRE CONTROL MECHANIC.MARKETING PLANNER Work Phone: [facility] 07-21-2022 12:17-0500 Systolic blood pressure 129 mm[Hg] Duglas Hall FIRE CONTROL MECHANIC.MARKETING PLANNER Work Phone: [facility] Encounters Encounter Date Encounter Type Care Provider Facility Start: 01-22-2025 End: 01-22-2025 Office outpatient new 30 minutes Henny Mckee MD Work Phone: [facility] Plastic Surgery - Adam Escalante Comment on above: Closed fracture of n nader bone, initial encounter (Primary Dx) Start: 01-22-2025 End: 01-22-2025 ambulatory [facility] Start: 01-21-2025 End: 01-21-2025 ambulatory [facility] Start: 01-21-2025 End: 01-21-2025 Office outpatient visit 25 minutes Jorgito Cali PA-C Work Phone: [facility] Trauma - Rekha Comment on above: Acute traumatic inju ry of cervical spine (HCC) (Primary Dx); Acute pain due to trauma Start: 01-13-2025 End: 01-13-2025 ambulatory ANIYA DE LEON Facility:[facility] Start: 01-13-2025 End: 01-14-2025 Evaluation and management of inpatient Skinny Carey MD Work Phone: [facility] Surgical Trauma Neuro Intensive Care Unit [facility] ICU T2 Comment on above: Acute traumatic inju ry of cervical spine (HCC) (Primary Dx); Closed fracture of nasal bone, initial encounter; Closed nondisplaced fracture of second cervical vertebra, unspecified fracture morphology, initial encounter (HCC); Closed nondisplaced fracture of first cervical vertebra, unspecified fracture morphology, initial encounter (HCC); Laceration of nose, initial encounter; Acute pain due to trauma Start: 01-13-2025 End: 01-13-2025 Emergency department patient visit FIFI SCHMIDT [facility] Start: 12-22-2024 End: 12-22-2024 Refill Fifi Green MD Work Phone: [facility] [place] Comment on above: Refill Request Start: 12-19-2024 End: 12-19-2024 Patient encounter procedure Michael Tariq MD Work Phone: Otolaryngology Comment on above: Other chronic sinusi tis (Primary Dx); Diplopia Start: 12-19-2024 End: 12-19-2024 ambulatory FIFI GREEN Facility:[facility] Start: 11-13-2024 End: 11-13-2024 ambulatory [facility] Start: 11-07-2024 ambulatory FIFI GREEN [facility] Start: 10-14-2024 End: 10-15-2024 ambulatory Fifi Green MD Work Phone: [facility] [place] Comment on above: Last visit informati on needed Start: 10-09-2024 End: 10-09-2024 ambulatory [facility] Start: 09-26-2024 End: 09-30-2024 Telephone encounter Fifi Green MD Work Phone: [facility] [place] Comment on above: Insurance Authorizat ion Start: 09-26-2024 End: 09-26-2024 ambulatory FIFI GREEN Facility:[facility] Start: 09-26-2024 End: 09-26-2024 Patient encounter procedure Fifi Green MD Work Phone: [facility] [place] Comment on above: Medicare annual well ness visit, subsequent (Primary Dx); Type 2 diabetes mellitus with hyperglycemia, without long-term current use of insulin (HCC); Urge incontinence of urine; Alternating constipation and diarrhea; Diplopia; Encounter for screening examination for other mental health and behavioral disorders Start: 09-20-2024 End: 09-20-2024 ambulatory FIFI GREEN Facility:[facility] Start: 09-12-2024 End: 09-12-2024 [facility] Start: 09-12-2024 End: 09-12-2024 Patient encounter procedure Michael Tariq MD Work Phone: Otolaryngology Comment on above: Other chronic sinusi tis (Primary Dx); Diplopia Start: 09-11-2024 End: 09-11-2024 Telephone encounter Michael Tariq MD Work Phone: [facility] Start: 08-14-2024 End: 09-11-2024 Telephone encounter Hayden Regan PSS Cat Scan Start: 08-13-2024 End: 08-13-2024 ambulatory FIFI GREEN [facility] Start: 08-11-2024 End: 08-11-2024 Telephone encounter Michael Tariq MD Work Phone: Otolaryngology Comment on above: Patient Question Start: 07-31-2024 End: 07-31-2024 ambulatory Michael Tariq MD Work Phone: Otolaryngology Comment on above: Zoom Meeting Start: 07-29-2024 End: 07-30-2024 ambulatory Michael Tariq MD Work Phone: Otolaryngology Comment on above: Nasal cat scan Start: 07-29-2024 End: 07-29-2024 Subsequent hospital visit by physician Mulu [facility] (I-Stat) Work Phone: Cat Scan Comment on above: Other chronic sinusi tis [J32.8] Start: 07-18-2024 End: 07-18-2024 ambulatory [facility] Facility:[facility] Start: 07-18-2024 End: 07-18-2024 Patient encounter procedure Michael Tariq MD Work Phone: Otolaryngology Comment on above: Other chronic sinusi tis (Primary Dx); Diplopia Start: 07-11-2024 End: 07-11-2024 Refill Fifi Green MD Work Phone: [facility] [place] Comment on above: Refill Request Start: 07-09-2024 End: 07-09-2024 Telephone encounter Michael Tariq MD Work Phone: [facility] Comment on above: Patient Update Start: 06-30-2024 End: 06-30-2024 ambulatory FIFI GREEN Facility:[facility] Start: 06-30-2024 End: 06-30-2024 Subsequent hospital visit by physician Screen Mammo [facility] Mammogram Comment on above: Encounter for screen ing mammogram for breast cancer [Z12.31] Start: 06-27-2024 End: 06-27-2024 Office outpatient visit 25 minutes Fifi Green MD Work Phone: [facility] [place] Comment on above: Type 2 diabetes valentine itus with hyperglycemia, without long-term current use of insulin (HCC) (Primary Dx); Fibromyalgia; Urge incontinence of urine; Infection of orbit; Diplopia; Primary hypertension; Acquired hypothyroidism Start: 06-27-2024 End: 06-27-2024 ambulatory FIFI GREEN Facility:[facility] Start: 06-26-2024 End: 06-26-2024 Telephone encounter Michael Tariq MD Work Phone: Otolaryngology Start: 06-20-2024 End: 06-20-2024 [facility] Start: 06-20-2024 End: 06-20-2024 Patient encounter procedure Michael Tariq MD Work Phone: Otolaryngology Comment on above: Nasal crusting (Prim matt Dx); History of paranasal sinusotomy; History of ethmoidectomy; Diplopia Start: 06-16-2024 End: 06-19-2024 Telephone encounter Fifi Green MD Work Phone: [facility] [place] Comment on above: Orders (Mammogram) Start: 05-21-2024 End: 05-21-2024 ambulatory FIFI GREEN Facility:[facility] Start: 05-16-2024 End: 05-19-2024 Refill Fifi Green MD Work Phone: [facility] [place] Comment on above: Refill Request Start: 05-09-2024 End: 05-09-2024 Telephone encounter Michael Tariq MD Work Phone: Otolaryngology Start: 04-24-2024 End: 05-02-2024 Telephone encounter Fifi Green MD Work Phone: [facility] [place] Comment on above: Patient Update; Melinda ent Question Start: 04-17-2024 End: 04-19-2024 Telephone encounter Fifi Green MD Work Phone: [facility] [place] Comment on above: Medication Request Start: 04-14-2024 End: 04-15-2024 Telephone encounter Fifi Green MD Work Phone: [facility] [place] Comment on above: Patient Update Start: 04-04-2024 End: 04-10-2024 Telephone encounter Fifi Green MD Work Phone: [facility] [place] Comment on above: complications after sinus surgery; Patient Question Start: 04-04-2024 End: 04-04-2024 Emergency department patient visit Fifi Green Facility:[facility] Start: 04-01-2024 End: 04-02-2024 ambulatory FIFI GREEN [facility] Start: 04-01-2024 End: 04-02-2024 ambulatory FIFI GREEN [facility] Start: 03-25-2024 End: 03-25-2024 ambulatory DUGLASRajiv ASIFS Facility:[facility] Start: 03-25-2024 End: 03-25-2024 Office outpatient visit 40 minutes Fifi Green MD Work Phone: [facility] [place] Comment on above: Type 2 diabetes valentine itus with hyperglycemia, without long-term current use of insulin (HCC) (Primary Dx); Reactive depression; Acquired hypothyroidism; Primary hypertension; Nausea; Bladder irritability; Fibromyalgia; Encounter for immunization Start: 03-21-2024 End: 03-21-2024 [facility] Start: 03-21-2024 End: 03-21-2024 Encounter for other preprocedural examination MEGHNA Roxane [facility] Start: 03-20-2024 End: 03-20-2024 ambulatory FIFI GREEN Facility:[facility] Start: 02-29-2024 End: 02-29-2024 Refill Katya Fernandez APRN.CNM Work Phone: OB/Gynecology Comment on above: Refill Request Start: 02-14-2024 End: 02-14-[address] [facility] Start: 01-23-2024 End: 01-23-2024 Patient encounter procedure Augusto Bland FIRE CONTROL MECHANIC.TRAUMA COORDINATOR Work Phone: [facility] [place] Comment on above: Subacute pansinusiti s (Primary Dx); Thrush Start: 01-23-2024 End: 01-23-2024 ambulatory AUGUSTO BLAND Facility:[facility] Start: 01-09-2024 End: 01-09-2024 ambulatory Consuelo Hilario Facility:[facility] Start: 12-25-2023 End: 12-25-2023 Subsequent hospital visit by physician Raquel [facility] Work Phone: Radiology Comment on above: Sinobronchitis [J32. 9, J40] Start: 12-25-2023 End: 12-25-2023 Office outpatient visit 25 minutes Duglas Hall FIRE CONTROL MECHANIC.MARKETING PLANNER Work Phone: [facility] [place] Comment on above: Acute non-recurrent pansinusitis (Primary Dx); Acute asthmatic bronchitis; Sinobronchitis; Vertigo; Abnormal CXR Start: 11-19-2023 End: 11-19-2023 Patient encounter procedure Consuelo Hilario MD Work Phone: OB/Gynecology Comment on above: DERRICK (stress urinary incontinence, female) (Primary Dx); Mixed incontinence Start: 10-04-2023 End: 10-04-2023 ambulatory [facility] Work Phone: Start: 10-04-2023 End: 10-04-2023 Patient encounter procedure [facility] Work Phone: Start: 10-04-2023 End: 10-04-2023 ambulatory [facility] Facility:[facility] Start: 10-02-2023 End: 10-02-2023 [facility] Work Phone: Start: 10-02-2023 End: 10-02-2023 Patient encounter procedure [facility] Work Phone: Start: 10-02-2023 End: 10-02-2023 [facility] Facility:[facility] Start: 09-25-2023 End: 09-25-2023 Office outpatient visit 25 minutes Fifi Green MD Work Phone: [facility] [place] Comment on above: Type 2 diabetes valentine itus without complication, without long- term current use of insulin (HCC) (Primary Dx); Acquired hypothyroidism; Alternating constipation and diarrhea; Pure hypercholesterolemia; Primary hypertension Start: 09-18-2023 End: 09-18-2023 Patient encounter procedure Consuelo Hilario MD Work Phone: OB/Gynecology Comment on above: Encounter for gyneco logical examination (general) (routine) without abnormal findings (Primary Dx) Start: 09-18-2023 End: 09-18-2023 Patient encounter status Consuelo Hilario MD Work Phone: [facility] Start: 08-15-2023 ambulatory Duglas Hall APRN.MARKETING PLANNER Work Phone: [facility] Start: 08-15-2023 Patient encounter procedure Duglas Rafael HACKETT.MARKETING PLANNER Work Phone: [facility] [place] Comment on above: Referral letter to Fuad Mcguire Start: 08-06-2023 End: 08-06-2023 Office outpatient visit 15 minutes Duglas Hall APRN.MARKETING PLANNER Work Phone: [facility] [place] Comment on above: Alternating constipa tion and diarrhea (Primary Dx); Change in bowel habits Start: 05-22-2023 ambulatory Fifi yeung MD Work Phone: [facility] [place] Comment on above: Mammogram Start: 03-26-2023 Refill Fifi yeung MD Work Phone: [facility] [place] Comment on above: Refill Request Start: 03-23-2023 End: 03-23-2023 Office outpatient visit 25 minutes Fifi Green MD Work Phone: [facility] [place] Comment on above: Type 2 diabetes valentine itus without complication, without long- term current use of insulin (HCC) (Primary Dx); HTN (hypertension), benign; Acquired hypothyroidism; Gastroesophageal reflux disease, unspecified whether esophagitis present; Nausea; Pure hypercholesterolemia; Bladder irritability; Urge incontinence of urine; Reactive depression; Mild intermittent asthma without complication; Allergic rhinitis, unspecified seasonality, unspecified trigger Start: 03-14-2023 Telephone encounter Beti ivy MA [facility] [place] Comment on above: Orders Start: 07-21-2022 End: 07-21-2022 Office outpatient visit 25 minutes Duglas Hall APRN.MARKETING PLANNER Work Phone: [facility] [place] Comment on above: Type 2 diabetes valentine itus without complication, without long- term current use of insulin (HCC) (Primary Dx); Screening for diabetic retinopathy; Encounter for immunization; Primary hypertension; Acquired hypothyroidism; Bladder irritability; Urge incontinence of urine; Pure hypercholesterolemia; Gastroesophageal reflux disease, unspecified whether esophagitis present; HTN (hypertension), benign; Gastroesophageal reflux disease, unspecified whether esophagitis present; Nausea; Reactive depression Start: 05-01-2022 Telephone encounter Fifi pena MD Work Phone: [facility] [place] Comment on above: mammogram orders Start: 04-26-2022 Refill Fifi yeung MD Work Phone: [facility] [place] Comment on above: Refill Request Start: 03-07-2022 Refill Fifi yeung MD Work Phone: [facility] [place] Comment on above: Refill Request Start: 02-17-2022 ambulatory Fifi yeung MD Work Phone: [facility] [place] Comment on above: Meds for flight and cruise Start: 10-07-2021 ambulatory Fifi yeung MD Work Phone: [facility] [place] Comment on above: 4th covid booster Procedures Date Procedure Procedure Detail Performing Clinician Start: 01-14-2025 Glucose quantitative blood xcpt reagent strip Skinny Carey MD Work Phone: Start: 01-14-2025 Glucose quantitative blood xcpt reagent strip Skinny Carey MD Work Phone: Start: 01-14-2025 Basic metabolic panel calcium total Obinna Solo MD Work Phone: Start: 01-14-2025 Drug test def 1-7 classes Simba Samayoa MD Work Phone: Start: 01-14-2025 Thyrotropin [Units/volume] in Serum or Plasma Skinny Carey MD Work Phone: Start: 01-14-2025 Glucose quantitative blood xcpt reagent strip Skinny Carey MD Work Phone: Start: 01-13-2025 Ecg routine ecg w/least 12 lds trcg only w/o i&r Obinna Solo MD Work Phone: Start: 01-13-2025 Radiologic exam chest single view Obinna Solo MD Work Phone: Start: 01-13-2025 End: 01-13-2025 Radex spine cervical 2 or 3 views Kane Mcclelland MD Work Phone: Start: 07-15-2025 Ct angiography head w/contrast/noncontrast Obinna Solo MD Work Phone: Start: 12-19-2024 Follow-up visit Follow Up MICHAEL TARIQ Start: 07-29-2024 Ct maxillofacial w/o contrast material Michael Tariq MD Work Phone: Start: 06-20-2024 Cul bact xcpt urine blood/stool aerobic isol Michael Tariq MD Work Phone: Start: 12-25-2023 Radiologic exam chest 2 views Duglas Hall APRN.MARKETING PLANNER Work Phone: Start: 06-15-2022 Mammography Duglas Hall APRN.CN S Work Phone: Start: 06-07-2021 Mammography Fifi Green MD Work Phone: Start: 02-22-2018 Colonoscopy Fifi Green MD Work Phone: H/O: surgery History of paran nader sinusotomy Fifi Green MD Work Phone: H/O: surgery History of paran ndaer sinusotomy Michael Tariq MD Work Phone: Plan of Treatment Date Care Activity Detail Author Start: 07-09-2033 DTaP/Tdap/Td Vaccines (3 - Td or Tdap) DTaP/Tdap/Td Vaccines (3 - Td or Tdap) [facility] Start: 07-09-2033 Urine microalbumin profile DTaP,Tdap,Td Vaccine (3 - Td or Tdap) [facility] Start: 02-23-2028 Colonoscopy COLONOSCOPY [facility] Start: 02-23-2028 COLORECTAL CANCER SCREENING COLORECTAL CANCER SCREENING [facility] Start: 02-23-2028 Screening for malignant neoplasm of colon [facility] Start: 01-14-2026 Diabetes: Estimated Glomerular Filtration Rate for Kidney Health Diabetes: Estimated Glomerular Filtration Rate for Kidney Health [facility] Start: 01-14-2026 Thyroid stimulating hormone measurement TSH Level [facility] Start: 10-26-2025 Medicare Annual Wellness (AWV) Medicare Annual Wellness (AWV) [facility] Start: 10-05-2025 End: 10-05-2025 Patient encounter procedure 10/05/2025 9:00 AM EDT Office Visit [facility] [address] [place] [address] Fifi Green MD [address] [place] [address] Medicare wellness [facility] [place] Comment on above: Medicare wellness Start: 09-26-2025 Annual PCP Team Chronic Disease Visit Annual PCP Team Chronic Disease Visit [facility] Start: 09-26-2025 Anxiety Screening Anxiety Screening [facility] Start: 09-26-2025 BP Controlled (<130/80) BP Controlled (<130/80) [facility] Start: 09-26-2025 Covid-19 Vaccine () Covid-19 Vaccine () [facility] Comment on above: Postponed from 03/02/2024 (Declined at t his time) Start: 09-26-2025 Medicare Annual Wellness Visit Medicare Annual Wellness Visit [facility] Start: 09-26-2025 Spirometry Spirometry [facility] Comment on above: Postponed from 1966 (Declined at t his time) Start: 07-03-2025 End: 07-03-2025 Patient encounter procedure 07/03/2025 11:30 AM EST Office Visit Otolaryngology [address] [place] [address] Michael Tariq MD [address] [place] [address] Return in about 6 months (around 06/20/2025). Otolaryngology Comment on above: Return in about 6 months (around 025). Start: 06-27-2025 Annual PCP Team Chronic Disease Visit Annual PCP Team Chronic Disease Visit [facility] Start: 06-27-2025 BP Controlled (<130/80) BP Controlled (<130/80) [facility] Start: 04-16-2025 Hemoglobin A1c measurement HbA1C [facility] Start: 04-07-2025 Glaucoma screening Dilated Retinal Exam [facility] Start: 03-30-2025 End: 03-30-2025 Patient encounter procedure 03/30/2025 9:40 AM EDT Office Visit [facility] [address] [place] [address] Fifi Green MD [address] [place], [place] [id number] 6 month follow up [facility] Comment on above: 6 month follow up Start: 03-25-2025 Annual PCP Team Chronic Disease Visit Annual PCP Team Chronic Disease Visit [facility] Start: 03-20-2025 Diabetes: Urine Albumin-Creatinine Ratio for Kidney Health Diabetes: Urine Albumin-Creatinine Ratio for Kidney Health [facility] Start: 03-20-2025 Hepatitis B screening Urine Albumin:Creatinine Ratio [facility] Start: 03-20-2025 Hepatitis B surface antibody level LDL Cholesterol [facility] Start: 03-02-2025 Influenza vaccination Influenza Vaccine (#1) [facility] Start: 02-26-2025 End: 05-28-2025 Lipid 1996 panel - Serum or Plasma LIPID PANEL, FASTING Lab Routine Type 2 diabetes mellitus with hyperglycemia, without long-term current use of insulin (HCC) Expected: 02/26/2025 (Approximate), Expires: 05/28/2025 [facility] Work Phone: Comment on above: Expected: 02/26/2025 (Approximate), Expi res: 05/28/2025 Start: 02-26-2025 End: 05-28-2025 Microalbumin/Creatinine [Mass Ratio] in Urine ALBUMIN/CREATININE RATIO, URINE Lab Routine Type 2 diabetes mellitus with hyperglycemia, without long-term current use of insulin (HCC) Expected: 02/26/2025 (Approximate), Expires: 05/28/2025 [facility] Comment on above: Expected: 02/26/2025 (Approximate), Expi res: 05/28/2025 Start: 01-26-2025 End: 01-26-2025 Patient encounter procedure 01/26/2025 11:30 AM EDT Office Visit [facility] [place] [address] [place] [address] Virginia Matta, FIRE CONTROL MECHANIC - TRAUMA COORDINATOR [address] [place] [address] [facility] [place] Start: 01-22-2025 Annual PCP Team Chronic Disease Visit Annual PCP Team Chronic Disease Visit [facility] Start: 01-22-2025 End: 01-22-2025 Patient encounter procedure 01/22/2025 2:00 PM EDT Office Visit [facility] [address] [place] [id number] Henny Mckee MD [address] [place], [place] [id number] [facility] Start: 12-24-2024 BP Controlled (<130/80) BP Controlled (<130/80) [facility] Start: 12-21-2024 Hemoglobin A1c measurement HbA1C [facility] Start: 12-19-2024 End: 12-19-2024 Patient encounter procedure 12/19/2024 4:15 PM EDT Office Visit Otolaryngology [address] [place] [address] Michael Tariq MD [address] [place] [address] Return in about 3 months (around 12/13/2024). Otolaryngology Comment on above: Return in about 3 months (around 12/14/19). Start: 11-18-2024 BP Controlled (<130/80) BP Controlled (<130/80) [facility] Start: 10-17-2024 End: 10-17-2024 Patient encounter procedure 10/17/2024 11:30 AM EDT Office Visit Otolaryngology [address] [place] [address] Michael Tariq MD [address] [place] [address] 3 month follow up Otolaryngology Comment on above: 3 month follow up Start: 10-11-2024 Glaucoma screening Dilated Retinal Exam [facility] Start: 09-26-2024 End: 09-26-2024 Patient encounter procedure [facility] Comment on above: 6 mo follow up Medicare Wellness Start: 09-24-2024 Annual PCP Team Chronic Disease Visit Annual PCP Team Chronic Disease Visit [facility] Start: 09-24-2024 BP Controlled (<130/80) BP Controlled (<130/80) [facility] Start: 09-20-2024 Hepatitis B surface antibody level LDL Cholesterol [facility] Start: 09-12-2024 End: 09-12-2024 Patient encounter procedure 09/12/2024 2:15 PM EDT Office Visit Otolaryngology [address] [place] [address] Michael Tariq MD [address] [place] [address] 3 month follow up Otolaryngology Comment on above: 3 month follow up Start: 09-05-2024 End: 09-05-2024 Patient encounter procedure 09/05/2024 9:30 AM EST Office Visit Otolaryngology [address] [place] [address] Michael Tariq MD [address] [place] [address] Return in about 4 weeks (around 07/18/2024). Otolaryngology Comment on above: Return in about 4 weeks (around ). Start: 08-21-2024 Hemoglobin A1c measurement HbA1C [facility] Start: 08-15-2024 End: 08-15-2024 ambulatory 08/15/2024 10:30 AM EST [facility] [address] [place] [address] Michael Tariq MD [address] [place] [address] Review scan Otolaryngology Comment on above: Review scan Start: 07-31-2024 End: 07-31-2024 ambulatory 07/31/2024 11:45 AM EST [facility] [address] [place] [address] Michael Tariq MD [address] [place] [address] scan Otolaryngology Comment on above: review CT scan Start: 07-29-2024 End: 07-29-2024 Patient encounter procedure 07/29/2024 10:40 AM EST Appointment Cat Scan [address] [place] [address] Other chronic sinusitis [J32.8] [facility] Comment on above: Other chronic sinusitis [J32.8] Start: 07-18-2024 End: 07-18-2024 Patient encounter procedure 07/18/2024 11:45 AM EST Office Visit Otolaryngology [address] [place] [address] Michael Tariq MD [address] [place] [address] Sinus issue Otolaryngology Comment on above: Sinus issue Start: 07-02-2024 Advance Directive Discussion Advance Directive Discussion [facility] Start: 06-30-2024 End: 06-30-2024 Patient encounter procedure 06/30/2024 1:30 PM EST Appointment Mammogram [address] [place], [place] [id number] Encounter for screening mammogram for breast cancer [Z12.31] Mammogram Comment on above: Encounter for screening mammogram for br east cancer [Z12.31] Start: 06-27-2024 End: 06-27-2024 Patient encounter procedure 06/27/2024 3:40 PM EST Office Visit [facility] [address] [place], [place] [id number] Fifi Green MD [address] [place] [address] 3 month follow up [facility] Comment on above: 3 month follow up Start: 06-20-2024 End: 06-20-2024 Patient encounter procedure 06/20/2024 10:30 AM EST Office Visit Otolaryngology [address] [place] [address] Michael Tariq MD [address] [place] [address] 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] Otolaryngology Comment on above: 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 ] Start: 06-19-2024 Hemoglobin A1c measurement HbA1C [facility] Start: 06-18-2024 Screening for malignant neoplasm of breast Mammogram Screening [facility] Start: 06-16-2024 End: 06-16-2024 Patient encounter procedure 06/16/2024 10:20 AM EST Office Visit [facility] [address] [place] [address] Fifi Green MD [address] [place] [address] 3 month follow up [facility] Comment on above: 3 month follow up Start: 06-13-2024 End: 06-13-2024 Patient encounter procedure 06/13/2024 10:30 AM EST Office Visit Otolaryngology [address] [place] [address] Michael Tariq MD [address] [place] [address] 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] Otolaryngology Comment on above: 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 ] Start: 05-25-2024 End: 08-24-2024 Basic metabolic 2000 panel - Serum or Plasma BASIC METABOLIC PANEL Lab Routine Type 2 diabetes mellitus with hyperglycemia, without long-term current use of insulin (HCC) Expected: 05/25/2024 (Approximate), Expires: 08/24/2024 [facility] Comment on above: Expected: 05/25/2024 (Approximate), Expi res: 08/24/2024 Start: 05-25-2024 End: 08-24-2024 Hemoglobin A1c in Blood HEMOGLOBIN A1C Lab Routine Type 2 diabetes mellitus with hyperglycemia, without long-term current use of insulin (HCC) Expected: 05/25/2024 (Approximate), Expires: 08/24/2024 [facility] Work Phone: Comment on above: Expected: 05/25/2024 (Approximate), Expi res: 08/24/2024 Start: 03-25-2024 End: 03-25-2024 Patient encounter procedure 03/25/2024 9:40 AM EDT Office Visit [facility] [place] [address] [place], [place] [id number] Fifi Green MD [address] [place], [place] [id number] 6 month f/u [facility] [place] Comment on above: 6 month f/u Start: 03-23-2024 Annual PCP Team Chronic Disease Visit Annual PCP Team Chronic Disease Visit [facility] Start: 03-23-2024 Hemoglobin A1c measurement HbA1C [facility] Start: 03-23-2024 Urine microalbumin profile DTaP,Tdap,Td Vaccine (2 - Td or Tdap) [facility] Comment on above: Postponed from 07/15/2022 (Declined at t his time) Start: 03-14-2024 Hepatitis B screening Urine Albumin:Creatinine Ratio [facility] Start: 03-14-2024 Hepatitis B surface antibody level LDL Cholesterol [facility] Start: 03-02-2024 Covid-19 Vaccine ( season) Covid-19 Vaccine () [facility] Start: 03-02-2024 Covid-19 Vaccine ( season) Covid-19 Vaccine ( season) [facility] Start: 03-02-2024 Influenza vaccination Influenza Vaccine (#1) [facility] Start: 02-25-2024 End: 05-26-2024 ALBUMIN/CREAT RATIO RND UR ALBUMIN/CREAT RATIO RND UR Lab Routine Type 2 diabetes mellitus without complication, without long-term current use of insulin (HCC) Expected: 02/25/2024 (Approximate), Expires: 05/26/2024 [facility] Comment on above: Expected: 02/25/2024 (Approximate), Expi res: 05/26/2024 Start: 02-25-2024 End: 05-26-2024 CBC panel - Blood by Automated count CBC Lab Routine Primary hypertension Expected: 02/25/2024 (Approximate), Expires: 05/26/2024 [facility] Comment on above: Expected: 02/25/2024 (Approximate), Expi res: 05/26/2024 Start: 02-25-2024 End: 05-26-2024 Comprehensive metabolic 2000 panel - Serum or Plasma COMP METABOLIC PANEL Lab Routine Type 2 diabetes mellitus without complication, without long-term current use of insulin (HCC) Primary hypertension Expected: 02/25/2024 (Approximate), Expires: 05/26/2024 [facility] Work Phone: Comment on above: Expected: 02/25/2024 (Approximate), Expi res: 05/26/2024 Start: 02-25-2024 End: 05-26-2024 Hemoglobin A1c in Blood HGB A1C Lab Routine Type 2 diabetes mellitus without complication, without long-term current use of insulin (HCC) Expected: 02/25/2024 (Approximate), Expires: 05/26/2024 [facility] Comment on above: Expected: 02/25/2024 (Approximate), Expi res: 05/26/2024 Start: 02-25-2024 End: 05-26-2024 Lipid 1996 panel - Serum or Plasma LIPID PANEL BASIC Lab Routine Pure hypercholesterolemia Expected: 02/25/2024 (Approximate), Expires: 05/26/2024 [facility] Comment on above: Expected: 02/25/2024 (Approximate), Expi res: 05/26/2024 Start: 02-25-2024 End: 05-26-2024 Thyrotropin [Units/volume] in Serum or Plasma TSH BLD Lab Routine Acquired hypothyroidism Expected: 02/25/2024 (Approximate), Expires: 05/26/2024 [facility] Comment on above: Expected: 02/25/2024 (Approximate), Expi res: 05/26/2024 Start: 02-25-2024 End: 05-26-2024 Thyroxine (T4) free [Mass/volume] in Serum or Plasma T4 FREE/FREE THYROX Lab Routine Acquired hypothyroidism Expected: 02/25/2024 (Approximate), Expires: 05/26/2024 [facility] Comment on above: Expected: 02/25/2024 (Approximate), Expi res: 05/26/2024 Start: 02-25-2024 End: 05-26-2024 Triiodothyronine (T3) Free [Mass/volume] in Serum or Plasma T3 FREE BLD Lab Routine Acquired hypothyroidism Expected: 02/25/2024 (Approximate), Expires: 05/26/2024 [facility] Comment on above: Expected: 02/25/2024 (Approximate), Expi res: 05/26/2024 Start: 02-11-2024 End: 02-11-2024 Patient encounter procedure 02/11/2024 3:00 PM EDT Office Visit Urogynecology [address] [facility] [address] [place] [address] Jose Luis Serrano APRN.TRAUMA COORDINATOR [address] [place] [address] DERRICK (stress urinary incontinence, female) [N39.3] Urogynecology Comment on above: DERRICK (stress urinary incontinence, female ) [N39.3] Start: 11-19-2023 End: 11-19-2023 Patient encounter procedure 11/19/2023 2:00 PM EDT Office Visit OB/Gynecology [address] [place] [address] Consuelo Hilario MD [address] [place] [address] 2 month follow up bladder med OB/Gynecology Comment on above: 2 month follow up bladder med Start: 10-04-2023 Protein measurement [facility] Start: 09-21-2023 End: 11-21-2023 CBC panel - Blood by Automated count CBC Lab Routine HTN (hypertension), benign Expected: 09/21/2023, Expires: 11/21/2023 [facility] Work Phone: Comment on above: Expected: 09/21/2023, Expires: Start: 09-21-2023 End: 11-21-2023 Comprehensive metabolic 2000 panel - Serum or Plasma COMP METABOLIC PANEL Lab Routine HTN (hypertension), benign Type 2 diabetes mellitus without complication, without long-term current use of insulin (HCC) Expected: 09/21/2023, Expires: 11/21/2023 [facility] Work Phone: Comment on above: Expected: 09/21/2023, Expires: Start: 09-21-2023 End: 11-21-2023 Hemoglobin A1c in Blood HGB A1C Lab Routine Type 2 diabetes mellitus without complication, without long-term current use of insulin (HCC) Expected: 09/21/2023, Expires: 11/21/2023 [facility] Work Phone: Comment on above: Expected: 09/21/2023, Expires: Start: 09-21-2023 End: 11-21-2023 Lipid 1996 panel - Serum or Plasma LIPID PANEL BASIC Lab Routine Pure hypercholesterolemia Expected: 09/21/2023, Expires: 11/21/2023 [facility] Work Phone: Comment on above: Expected: 09/21/2023, Expires: Start: 09-21-2023 End: 11-21-2023 Thyrotropin [Units/volume] in Serum or Plasma TSH BLD Lab Routine Acquired hypothyroidism Expected: 09/21/2023, Expires: 11/21/2023 [facility] Work Phone: Comment on above: Expected: 09/21/2023, Expires: Start: 09-21-2023 End: 11-21-2023 Thyroxine (T4) free [Mass/volume] in Serum or Plasma T4 FREE/FREE THYROX Lab Routine Acquired hypothyroidism Expected: 09/21/2023, Expires: 11/21/2023 [facility] Work Phone: Comment on above: Expected: 09/21/2023, Expires: Start: 09-21-2023 End: 11-21-2023 Triiodothyronine (T3) Free [Mass/volume] in Serum or Plasma T3 FREE BLD Lab Routine Acquired hypothyroidism Expected: 09/21/2023, Expires: 11/21/2023 [facility] Work Phone: Comment on above: Expected: 09/21/2023, Expires: Start: 09-12-2023 Hemoglobin A1c measurement HbA1C [facility] Start: 09-12-2023 Hemoglobin A1c/Hemoglobin.total in Blood HbA1C [facility] Start: 09-09-2023 Glaucoma screening Dilated Retinal Exam [facility] Start: 09-09-2023 Hepatitis C antibody, confirmatory test Dilated Retinal Exam [facility] Start: 07-26-2023 Covid-19 Vaccine () Covid-19 Vaccine () [facility] Start: 07-21-2023 BP CONTROLLED (<130/80) BP CONTROLLED (<130/80) [facility] Start: 07-02-2023 3 comp foot exam completed DIABETIC FOOT EXAM [facility] Comment on above: Postponed from 01/18/2022 (Declined at t his time) Start: 07-02-2023 Advance Directive Discussion Advance Directive Discussion [facility] Start: 07-02-2023 End: 07-21-2023 ALBUMIN/CREAT RATIO RND UR ALBUMIN/CREAT RATIO RND UR Lab Routine Type 2 diabetes mellitus without complication, without long-term current use of insulin (HCC) Expected: 07/02/2023 (Approximate), Expires: 07/21/2023 [facility] Work Phone: Comment on above: Expected: 07/02/2023 (Approximate), Expi res: 07/21/2023 Start: 07-02-2023 End: 07-21-2023 CBC W Auto Differential panel - Blood CBC + DIFF Lab Routine Type 2 diabetes mellitus without complication, without long-term current use of insulin (HCC) Expected: 07/02/2023 (Approximate), Expires: 07/21/2023 [facility] Work Phone: Comment on above: Expected: 07/02/2023 (Approximate), Expi res: 07/21/2023 Start: 07-02-2023 End: 07-21-2023 Comprehensive metabolic 2000 panel - Serum or Plasma COMP METABOLIC PANEL Lab Routine Type 2 diabetes mellitus without complication, without long-term current use of insulin (HCC) Expected: 07/02/2023 (Approximate), Expires: 07/21/2023 [facility] Work Phone: Comment on above: Expected: 07/02/2023 (Approximate), Expi res: 07/21/2023 Start: 07-02-2023 End: 07-21-2023 Hemoglobin A1c in Blood HGB A1C Lab Routine Type 2 diabetes mellitus without complication, without long-term current use of insulin (HCC) Expected: 07/02/2023 (Approximate), Expires: 07/21/2023 [facility] Work Phone: Comment on above: Expected: 07/02/2023 (Approximate), Expi res: 07/21/2023 Start: 07-02-2023 Hepatitis C antibody, confirmatory test DILATED RETINAL EXAM [facility] Comment on above: Postponed from 10/01/2021 (Postponed To Appropriate Date) Start: 07-02-2023 End: 07-21-2023 Lipid 1996 panel - Serum or Plasma LIPID PANEL BASIC Lab Routine Type 2 diabetes mellitus without complication, without long-term current use of insulin (HCC) Expected: 07/02/2023 (Approximate), Expires: 07/21/2023 [facility] Work Phone: Comment on above: Expected: 07/02/2023 (Approximate), Expi res: 07/21/2023 Start: 07-02-2023 End: 07-21-2023 Thyrotropin [Units/volume] in Serum or Plasma TSH BLD Lab Routine Primary hypertension Expected: 07/02/2023 (Approximate), Expires: 07/21/2023 [facility] Work Phone: Comment on above: Expected: 07/02/2023 (Approximate), Expi res: 07/21/2023 Start: 06-15-2023 Hepatitis B surface antibody level LDL CHOLESTEROL [facility] Start: 06-15-2023 Mammography [facility] Start: 03-02-2023 Covid-19 Vaccine ( season) Covid-19 Vaccine () [facility] Start: 03-02-2023 Influenza vaccination Influenza Vaccine (#1) [facility] Start: 12-14-2022 Hemoglobin A1c/Hemoglobin.total in Blood HBA1C [facility] Start: 08-05-2022 ANNUAL PCP TEAM CHRONIC DISEASE VISIT ANNUAL PCP TEAM CHRONIC DISEASE VISIT [facility] Start: 07-28-2022 Hepatitis B screening URINE ALBUMIN:CREATININE RATIO [facility] Start: 07-15-2022 Urine microalbumin profile [facility] Start: 06-07-2022 Mammography MAMMOGRAM [facility] Start: 05-04-2022 End: 04-06-2023 CBC W Auto Differential panel - Blood CBC + DIFF Lab Routine Encounter for long-term (current) use of medications Hypertension, benign Expected: 05/04/2022 (Approximate), Expires: 04/06/2023 [facility] Work Phone: Comment on above: Expected: 05/04/2022 (Approximate), Expi res: 04/06/2023 Start: 05-04-2022 End: 04-06-2023 Comprehensive metabolic 2000 panel - Serum or Plasma COMP METABOLIC PANEL Lab Routine Encounter for long-term (current) use of medications Type 2 diabetes mellitus without (mention of) complications (HCC) Hypertension, benign Expected: 05/04/2022 (Approximate), Expires: 04/06/2023 [facility] Work Phone: Comment on above: Expected: 05/04/2022 (Approximate), Expi res: 04/06/2023 Start: 05-04-2022 End: 04-06-2023 Hemoglobin A1c in Blood HGB A1C Lab Routine Type 2 diabetes mellitus without (mention of) complications (HCC) Expected: 05/04/2022 (Approximate), Expires: 04/06/2023 [facility] Work Phone: Comment on above: Expected: 05/04/2022 (Approximate), Expi res: 04/06/2023 Start: 05-04-2022 End: 04-06-2023 Lipid 1996 panel - Serum or Plasma LIPID PANEL BASIC Lab Routine Encounter for long-term (current) use of medications Expected: 05/04/2022 (Approximate), Expires: 04/06/2023 [facility] Work Phone: Comment on above: Expected: 05/04/2022 (Approximate), Expi res: 04/06/2023 Start: 05-04-2022 End: 04-06-2023 Magnesium [Mass/volume] in Serum or Plasma MAGNESIUM BLD Lab Routine Encounter for long-term (current) use of medications Expected: 05/04/2022 (Approximate), Expires: 04/06/2023 [facility] Work Phone: Comment on above: Expected: 05/04/2022 (Approximate), Expi res: 04/06/2023 Start: 05-04-2022 End: 04-06-2023 Thyrotropin [Units/volume] in Serum or Plasma TSH BLD Lab Routine Acquired hypothyroidism Expected: 05/04/2022 (Approximate), Expires: 04/06/2023 [facility] Work Phone: Comment on above: Expected: 05/04/2022 (Approximate), Expi res: 04/06/2023 Start: 05-04-2022 End: 04-06-2023 Thyroxine (T4) free [Mass/volume] in Serum or Plasma T4 FREE/FREE THYROX Lab Routine Acquired hypothyroidism Expected: 05/04/2022 (Approximate), Expires: 04/06/2023 [facility] Work Phone: Comment on above: Expected: 05/04/2022 (Approximate), Expi res: 04/06/2023 Start: 05-04-2022 End: 04-06-2023 Triiodothyronine (T3) Free [Mass/volume] in Serum or Plasma T3 FREE BLD Lab Routine Acquired hypothyroidism Expected: 05/04/2022 (Approximate), Expires: 04/06/2023 [facility] Work Phone: Comment on above: Expected: 05/04/2022 (Approximate), Expi res: 04/06/2023 Start: 03-02-2022 Influenza vaccination INFLUENZA (#1) [facility] Start: 01-25-2022 Hemoglobin A1c/Hemoglobin.total in Blood HBA1C [facility] Start: 01-18-2022 3 comp foot exam completed DIABETIC FOOT EXAM [facility] Start: 01-18-2022 BP CONTROLLED (<130/80) BP CONTROLLED (<130/80) [facility] Start: 01-18-2022 Diabetic foot examination Diabetic Foot Exam [facility] Start: 01-13-2022 Hepatitis B surface antibody level LDL CHOLESTEROL [facility] Start: 12-19-2021 COVID-19 VACCINE (5 - Booster for Pfizer series) COVID-19 VACCINE (5 - Booster for Pfizer series) [facility] Start: 12-19-2021 Covid-19 Vaccine (5 - Pfizer series) Covid-19 Vaccine (5 - Pfizer series) [facility] Start: 10-01-2021 Hepatitis C antibody, confirmatory test DILATED RETINAL EXAM [facility] Start: 07-31-2021 COVID-19 VACCINE (4 - Booster for Pfizer series) COVID-19 VACCINE (4 - Booster for Pfizer series) [facility] Start: 07-02-2021 ADVANCE DIRECTIVE DISCUSSION ADVANCE DIRECTIVE DISCUSSION [facility] Start: 05-26-2021 COVID-19 VACCINE (4 - Booster for Pfizer series) COVID-19 VACCINE (4 - Booster for Pfizer series) [facility] Start: 05-06-2014 Hepatitis B Vaccine (2 of 3 - Risk 3-dose series) Hepatitis B Vaccine (2 of 3 - Risk 3-dose series) [facility] Start: 05-06-2014 Hepatitis B Vaccines (2 of 3 - 19+ 3-dose series) Hepatitis B Vaccines (2 of 3 - 19+ 3-dose series) [facility] Start: 2008 RSV Vaccine (1 - 1-dose 60+ series) RSV Vaccine (1 - 1-dose 60+ series) [facility] Start: 1993 COLOGUARD (FIT-DNA) COLOGUARD (FIT-DNA) [facility] Start: [address] COLONOGRAPHY [facility] Start: 1993 FECAL OCCULT BLOOD FECAL OCCULT BLOOD [facility] Start: 1993 Screening for malignant neoplasm of colon [facility] Start: 1993 SIGMOIDOSCOPY SIGMOIDOSCOPY [facility] Start: 1966 Anxiety Screening Anxiety Screening [facility] Start: 1966 BP CONTROLLED (<130/80) BP CONTROLLED (<130/80) [facility] Start: 1966 Hepatitis C screening Hepatitis C Screening [facility] Start: 1966 Spirometry Spirometry [facility] Start: 1960 Depression Monitoring Depression Monitoring [facility] Start: 1948 Screening for osteoporosis Bone Density Scan [facility] End: 06-27-2025 CBC panel - Blood by Automated count COMPLETE BLOOD COUNT Lab Routine Type 2 diabetes mellitus with hyperglycemia, without long-term current use of insulin (HCC) Every 3 months for 90 Occurrences starting 06/27/2024 until 06/27/2025 [facility] Comment on above: Every 3 months for 90 Occurrences starti ng 06/27/2024 until 06/27/2025 End: 06-27-2025 Comprehensive metabolic 2000 panel - Serum or Plasma COMPREHENSIVE METABOLIC PANEL Lab Routine Type 2 diabetes mellitus with hyperglycemia, without long-term current use of insulin (HCC) Every 3 months for 90 Occurrences starting 06/27/2024 until 06/27/2025 [facility] Work Phone: Comment on above: Every 3 months for 90 Occurrences starti ng 06/27/2024 until 06/27/2025 End: 06-27-2025 Hemoglobin A1c in Blood HEMOGLOBIN A1C Lab Routine Type 2 diabetes mellitus with hyperglycemia, without long-term current use of insulin (HCC) Every 3 months for 90 Occurrences starting 06/27/2024 until 06/27/2025 [facility] Comment on above: Every 3 months for 90 Occurrences starti ng 06/27/2024 until 06/27/2025 End: 06-20-2024 AKANKSHA SCREENING AKANKSHA SCREENING Radiology Routine Encounter for screening mammogram for breast cancer 1 Occurrences starting 05/28/2023 until 06/20/2024 [facility] Work Phone: Comment on above: 1 Occurrences starting 05/28/2023 until 06/20/2024 End: 07-16-2025 MG Breast Screening AKANKSHA SCREENING Radiology Routine Encounter for screening mammogram for breast cancer 1 Occurrences starting 06/18/2024 until 07/16/2025 [facility] Work Phone: Comment on above: 1 Occurrences starting 06/18/2024 until 07/16/2025 MG Breast Screening AKANKSHA SCREENIN G Radiology Routine Encounter for screening mammogram for breast cancer 06/30/2024 2:05 PM EST [facility] Work Phone: PFIZER-BIONTECH COVID-19 BIVALENT BOOSTER VACCINE, AGE 12+ YR PFIZER-BIONTECH COVID-19 BIVALENT BOOSTER VACCINE, AGE 12+ YR Immunization/Injection Routine Encounter for immunization 1 Occurrences starting 07/21/2022 [facility] Work Phone: Comment on above: 1 Occurrences starting 07/21/2022 End: 05-31-2023 Screening mammography bi 2-view breast inc cad AKANKSHA SCREENING Radiology Routine Encounter for screening mammogram for breast cancer 1 Occurrences starting 05/01/2022 until 05/31/2023 [facility] Work Phone: Comment on above: 1 Occurrences starting 05/01/2022 until 05/31/2023 Tdap vaccine 7 yrs/> im TDAP VAC CINE AGE 7+ IM Immunization/Injection Routine Encounter for immunization Ordered: 07/21/2022 [facility] Work Phone: Comment on above: Ordered: 07/21/2022 [facility] Immunizations Immunization Date Immunization Notes Care Provider [facility] 03-25-2024 influenza, high dose seasonal, preservative-free Fifi Green MD Work Phone: [facility] 03-25-2024 influenza virus vaccine, unspecified formulation Michael Tariq MD Work Phone: [facility] 07-09-2023 tetanus toxoid, redu fiona diphtheria toxoid, and acellular pertussis vaccine, adsorbed Consuelo Hilario MD Work Phone: [facility] Work Phone: 04-21-2023 respiratory syncytia l virus (RSV) vaccine, adjuvanted (AREXVY) Consuelo Hilario MD Work Phone: [facility] Work Phone: 03-26-2023 influenza (HD-IIV4) vaccine, age 65+ yr, high dose, quadrivalent, PF (FLUZONE HIGH-DOSE) Consuelo Hilario MD Work Phone: [facility] Work Phone: 03-26-2023 influenza virus vaccine, unspecified formulation Augusto Bland APRN.TRAUMA COORDINATOR Work Phone: [facility] 04-08-2022 influenza, high-dose , quadrivalent vaccine (FLUZONE HIGH DOSE QUADRIVALENT) Duglas Hall APRN.MARKETING PLANNER Work Phone: [facility] Work Phone: 04-08-2022 influenza virus vaccine, unspecified formulation Beti Peralta MA [facility] 04-14-2021 influenza virus vaccine, unspecified formulation Duglas Hall APRN.MARKETING PLANNER Work Phone: [facility] Work Phone: 03-31-2021 influenza, high-dose , quadrivalent vaccine (FLUZONE HIGH DOSE QUADRIVALENT) Duglas Hall APRN.MARKETING PLANNER Work Phone: [facility] Work Phone: 09-02-2020 COVID-19 vaccine, ag e 12+ yr (PFIZER-BIONTECH - PURPLE TOP) Fifi Green MD Work Phone: [facility] 08-05-2020 COVID-19 vaccine, ag e 12+ yr (PFIZER-BIONTECH - PURPLE TOP) Fifi Green MD Work Phone: [facility] 04-06-2020 influenza, high dose seasonal, preservative-free Fifi Green MD Work Phone: [facility] 03-13-2019 zoster vaccine recombinant Fifi Green MD Work Phone: [facility] Work Phone: 12-18-2018 zoster vaccine recombinant Fifi Green MD Work Phone: [facility] Work Phone: 05-09-2018 influenza, injectabl e, quadrivalent, preservative free Fifi Green MD Work Phone: [facility] 03-12-2017 influenza, high dose seasonal, preservative-free Fifi Green MD Work Phone: [facility] 10-13-2015 pneumococcal polysaccharide vaccine, 23 valent Fifi Green MD Work Phone: [facility] 04-30-2015 influenza, high dose seasonal, preservative-free Fifi Green MD Work Phone: [facility] 06-22-2014 pneumococcal conjuga te vaccine, 13 valent Fifi Green MD Work Phone: [facility] 05-11-2014 influenza, seasonal, injectable Fifi Green MD Work Phone: [facility] 04-08-2014 hepatitis B vaccine, adult dosage Fifi Green MD Work Phone: [facility] 04-08-2014 measles, mumps and rubella virus vaccine Fifi Green MD Work Phone: [facility] 03-09-2014 hepatitis B immune globulin Fifi Green MD Work Phone: [facility] 04-12-2013 influenza virus vaccine, unspecified formulation Fifi Green MD Work Phone: [facility] 07-15-2012 influenza virus vaccine, unspecified formulation Fifi Green MD Work Phone: [facility] 07-15-2012 tetanus toxoid, redu fiona diphtheria toxoid, and acellular pertussis vaccine, adsorbed Fifi Green MD Work Phone: [facility] 06-06-2010 influenza virus vaccine, unspecified formulation Fifi Green MD Work Phone: [facility] 05-15-2008 influenza virus vaccine, unspecified formulation Fifi Green MD Work Phone: [facility] Work Phone: 05-16-2006 influenza virus vaccine, unspecified formulation Fifi Green MD Work Phone: [facility] NEGATED: Highlighted row has not occurred!07-21-2022 tetanus toxoid, reduced diphtheria toxoid, and acellular pertussis vaccine, adsorbed Duglas Hall 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 2019 Unknown MMO MMO MEDICARE SUPPLEMENT [id number] 2019-Present [phone] [address] [place] [address] Indemnity [id number] 2014 Unknown [id number] 2013 Medicare MEDICARE MEDICAR E A AND B [id number] 2013-Present [phone] [address] [address] [place] [address] Medicare [id number] 2013 Medicare [id number] 2013 Medicare [id number] 1948 Unknown [id number] 1948 Unknown [id number] 1948 Unknown [id number] 1948 Unknown [id number] 1948 Unknown [id number] 1948 Unknown [id number] 1948 Unknown [id number] 1948 Unknown [id number] 1948 Unknown [id number] 1948 Unknown [id number] Unknown [id number] Unknown [id number] Unknown [id number] Unknown [id number] Social History Date Type Detail Facility Start: 05-09-2011 End: 01-14-2025 Tobacco smoking status NEIS Never smoked tobacco [facility] Start: 01-18-2021 End: 12-19-2024 Alcohol intake Current non-drinker of alcohol (finding) [facility] Start: 01-18-2021 End: 01-14-2025 Alcohol intake [facility] Start: 11-14-2019 End: 05-04-2020 History SDOH Alcohol Frequency 2 [facility] Start: 11-14-2019 End: 05-04-2020 History SDOH Alcohol Std Drinks 1 [facility] Start: 11-14-2019 End: 05-04-2020 History SDOH Social Connections Phone 5 [facility] Start: 11-14-2019 History SDOH Social Connections Get Together 98 [facility] Start: 11-14-2019 History SDOH Social Connections [employer] 3 [facility] Start: 11-14-2019 History SDOH Physica l Activity DPW 4 [facility] Start: 11-14-2019 Education 15 [facility] Start: 1950 Sex Assigned At Female C [facility] Start: 05-09-2011 End: 01-14-2025 Tobacco use and exposure Smokeless tobacco non-user [facility] Start: 11-14-2019 End: 01-14-2025 Social connection and isolation panel [facility] How often do you get together with friends or relatives? Patient refused [facility] Do you belong to any clubs or organizations such as hinduism groups, unions, fraternal or athletic groups, or school groups? Yes [facility] Are you now , , , , never or living with a partner? [facility] How often to you hav e a drink containing alcohol? Monthly or less [facility] How many standard dr inks containing alcohol do you have on a typical day? 1 or 2 [facility] How often do you hav e 6 or more drinks on 1 occasion? Never [facility] Do you feel stress - tense, restless, nervous, or anxious, or unable to sleep at night because your mind is troubled all the time - these days [OSQ] Not at all [facility] (I/We) worried whekatelynn er (my/our) food would run out before (I/we) got money to buy more. Never true [facility] In the past 12 month s, was there a time when you were not able to pay the mortgage or rent on time? No [facility] Start: 02-25-2019 Gender identity Identifies as female gender (finding) [facility] Start: 07-09-2020 [facility] Start: 02-22-2018 Non-smoker [facility] Do you feel stress - tense, restless, nervous, or anxious, or unable to sleep at night because your mind is troubled all the time - these days [OSQ] Rather much [facility] History of tobacco use Passive smoker [facility] Start: 01-14-2025 End: 01-22-2025 Alcoholic beverage intake Current drinker of alcohol (finding) [facility] Start: 01-14-2025 Alcohol Comment rare [facility] Start: 01-30-2022 Sex Female (finding) [facility] Medical Equipment Procedure Code Equipment Code Equipment Origin al Text Equipment Identifier Dates Test blood sugar (s) 1 times daily. Dx: Type 2 DM - Uncontrolled E11.65 Insulin: No [id number] Start: 03-25-2024 Test blood suga( s) 1 times daily. Dx: Type 2 DM - Uncontrolled E11.65 Insulin: No. Also dispense a lancet pen [id number] Start: 03-25-2024 Functional Status Date Assessment Result Facility 09-20-2024 Total score [AUDIT-C] 0 09/21/19 25 2:54 PM EDT User, Lee [facility] 09-20-2024 Within the last year , have you been humiliated or emotionally abused in other ways by your partner or ex-partner? No 09/20/2024 2:54 PM EDT User, Lee No [facility] 09-20-2024 Within the last year , have you been afraid of your partner or ex-partner? No 09/20/2024 2:54 PM EDT User, Lee No [facility] 09-20-2024 Within the last year , have you been raped or forced to have any kind of sexual activity by your partner or ex-partner? No 09/20/2024 2:54 PM EDT User, Lee No [facility] 09-20-2024 Within the last year , have you been kicked, hit, slapped, or otherwise physically hurt by your partner or ex-partner? No 09/20/2024 2:54 PM EDT User, Lee No [facility] 09-20-2024 How often to you hav e a drink containing alcohol? Never 09/20/2024 2:54 PM EDT User, Lee Never [facility] 09-20-2024 Functional status Patient does n ot drink 09/20/2024 2:54 PM EDT User, Lee Patient does not drink [facility] 09-20-2024 How often do you hav e 6 or more drinks on 1 occasion? Never 09/20/2024 2:54 PM EDT User, Lee Never [facility] 06-22-2014 Are you deaf, or do you have serious difficulty hearing No 06/22/2014 10:46 AM Ely Malik LPN No [facility] 06-22-2014 Are you blind, or do you have serious difficulty seeing, even when wearing glasses No 06/22/2014 10:46 AM Ely Malik LPN No [facility] 06-22-2014 Do you have serious difficulty walking or climbing stairs No 06/22/2014 10:46 AM Ely Malik LPN No [facility] 06-22-2014 Do you have difficul ty dressing or bathing No 06/22/2014 10:46 AM Ely Malik LPN No [facility] 06-22-2014 Because of a physica l, mental, or emotional condition, do you have difficulty doing errands alone such as visiting a physician's office or shopping No 06/22/2014 10:46 AM Ely Malik LPN No [facility] Mental Status Date Assessment Result Facility 06-22-2014 Because of a physica l, mental, or emotional condition, do you have serious difficulty concentrating, remembering, or making decisions No 06/22/2014 10:46 AM Ely Malik LPN No [facility] Clinical Notes 08-13-2015 to 01-22-2025 Henny Mckee MD - 01/22/2025 2:00 PM Emory Cali PA-C - 01/21/2025 11:30 AM Delia Gant RN - 01/14/2025 4:06 PM Delia Gant RN - 01/14/2025 4:06 PM EDTDischarge Instructions Note Date & Type Note Facility 01-22-2025 History of Present illness Narrative Plastic [facility] Consultation CC: Chief Complaint Patient presents with New Patient HPI: Marjorie Graham is a 74 y.o. female who presents for evaluation of nasal bone fractures. Patient fell in her garden a little over a week ago. Patient presented to the emergency department and was transferred to [facility]. Patient underwent multimodal imaging which demonstrated high cervical spine fractures. Patient was deemed a nonoperative candidate and was fit with a high cervical spine collar. Patient is now in collar and has been for greater than the past week. Patient initially on CT max face demonstrated nondisplaced nasal bone fractures. Patient does have a complicated history of significant sinus injuries and sinus surgery. Patient had an injury during surgery which left her with significant double vision. Interestingly, there was a correction of this with strabismus surgery that led to her unsteadiness and likely falling. Patient overall states that her pain is well-controlled. Patient denies nasal pain, nasal drainage, or other mucosal changes. Patient presents to plastic surgery follow-up and evaluation. Medical History[1] Surgical History[2] Family History[3] Social History Socioeconomic History Marital status: Spouse name: Not on file Number of children: Not on file Years of education: Not on file Highest education level: Not on file Occupational History Not on file Tobacco Use Smoking status: Never Passive exposure: Past Smokeless tobacco: Never Vaping Use Vaping status: Never Used Substance and Sexual Activity Alcohol use: Yes Alcohol/week: 1.0 standard drink of alcohol Types: 1 Cans of beer per week Comment: rare Drug use: Never Sexual activity: Not Currently Partners: Male control/protection: None Other Topics Concern Not on file Social History Narrative Not on file Social Drivers of Health Financial Resource Strain: Low Risk (09/20/2024) Received from [facility] Overall Financial Resource Strain (CARDIA) Difficulty of Paying Living Expenses: Not hard at all Food Insecurity: No Food Insecurity (09/20/2024) Received from [facility] Hunger Vital Sign Worried About Running Out of Food in the Last Year: Never true Ran Out of Food in the Last Year: Never true Transportation Needs: No Transportation Needs (01/14/2025) PRAPARE - Transportation Lack of Transportation (Medical): No Lack of Transportation (Non-Medical): No Physical Activity: Sufficiently Active (09/20/2024) Received from [facility] Exercise Vital Sign Days of Exercise per Week: 4 days Minutes of Exercise per Session: 50 min Stress: Stress Concern Present (09/20/2024) Received from [facility] [employer] [facility] [employer] - Occupational Stress Questionnaire Feeling of Stress : Rather much Social Connections: Socially Integrated (09/20/2024) Received from [facility] Social Connection and Isolation Panel [NHANES] Frequency of Communication with Friends and Family: More than three times a week Frequency of Social Gatherings with Friends and Family: More than three times a week Attends [employer] Services: More than 4 times per year Active Member of Clubs or Organizations: Yes Attends Club or Organization Meetings: More than 4 times per year Marital Status: Intimate Partner Violence: Not At Risk (01/14/2025) Humiliation, Afraid, Rape, and Kick questionnaire Fear of Current or Ex-Partner: No Emotionally Abused: No Physically Abused: No Sexually Abused: No Housing Stability: Low Risk (01/14/2025) Housing Stability Vital Sign Unable to Pay for Housing in the Last Year: No Number of Times Moved in the Last Year: 0 Homeless in the Last Year: No Patient Active Problem List Diagnosis Date Noted Closed nondisplaced fracture of first cervical vertebra (HCC) 01/14/2025 C2 cervical fracture ([facility]) 01/14/2025 Closed fracture of nasal septum 01/14/2025 Nasal laceration 01/14/2025 Acute pain due to trauma 01/14/2025 Acute traumatic injury of cervical spine ([facility]) 01/13/2025 Objective: Vitals: 01/22/25 1408 BP: 123/83 Pulse: 65 Body mass index is 30.3 kg/m . General: alert, no acute distress, cooperative Face: Swelling throughout the craniofacial complex. Improving bruising. Facial nerve intact. V1, V2, V3 intact Eyes: Extraocular muscles intact. Vision grossly intact. Pupils symmetric. Conjunctiva within normal limits Lip/Mouth: Moist mucous membranes, no intraoral or vermilion lesions Neck: C-collar in place Nose: Nontender to palpation. Obvious swelling. Intranasally. Mild to moderate mucosal inflammation. No obvious nasal bone deviation Lungs: Non labored Heart: HR Regular, BP Stable Abdomen: Soft, NT, ND, No Hernia noted Skin: Warm, dry Extremities: extremities normal, strength wnl, no cyanosis or edema Neurologic: Cranial nerves intact, No defect. Psychiatric: Oriented to person, place, and time. Pleasant mood Assessment: Patient is a 74 y.o. female with nasal fracture status post complex cervical fracture after a fall Plan: - No surgical intervention - Discussed nutrition - Monitor other nasal symptoms - Call with questions or concerns -I spent over 30 minutes counseling, coordinating, reviewing, documenting, and discussing patient work up and risks and benefits of surgical intervention. 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 Diabetes mellitus ([facility]) Disease of thyroid gland Fracture of nasal bones 2024 Hypertension Orbital fracture ([facility]) 2023 [2] Past Surgical History: Procedure Laterality Date APPENDECTOMY 1964 BACK SURGERY 1988 COLON SURGERY 1993 EYE SURGERY 2024 HYSTERECTOMY 2010 JOINT REPLACEMENT Left 2019 MASTECTOMY 1985 [3] Family History Problem Relation Name Age of Onset Cancer Mother's Brother Wesley Diabetes Brother Pokey Migraines Sister Viridiana documented in this encounter [facility] 01-22-2025 Note Plastic Sugery Consu ltation CC: Chief Complaint Patient presents with New Patient HPI: Marjorie Graham is a 74 y.o. female who presents for evaluation of nasal bone fractures. Patient fell in her garden a little over a week ago. Patient presented to the emergency department and was transferred to [facility]. Patient underwent multimodal imaging which demonstrated high cervical spine fractures. Patient was deemed a nonoperative candidate and was fit with a high cervical spine collar. Patient is now in collar and has been for greater than the past week. Patient initially on CT max face demonstrated nondisplaced nasal bone fractures. Patient does have a complicated history of significant sinus injuries and sinus surgery. Patient had an injury during surgery which left her with significant double vision. Interestingly, there was a correction of this with strabismus surgery that led to her unsteadiness and likely falling. Patient overall states that her pain is well-controlled. Patient denies nasal pain, nasal drainage, or other mucosal changes. Patient presents to plastic surgery follow-up and evaluation. Medical History[1] Surgical History[2] Family History[3] Social History Socioeconomic History Marital status: Spouse name: Not on file Number of children: Not on file Years of education: Not on file Highest education level: Not on file Occupational History Not on file Tobacco Use Smoking status: Never Passive exposure: Past Smokeless tobacco: Never Vaping Use Vaping status: Never Used Substance and Sexual Activity Alcohol use: Yes Alcohol/week: 1.0 standard drink of alcohol Types: 1 Cans of beer per week Comment: rare Drug use: Never Sexual activity: Not Currently Partners: Male control/protection: None Other Topics Concern Not on file Social History Narrative Not on file Social Drivers of Health Financial Resource Strain: Low Risk (09/20/2024) Received from [facility] Overall Financial Resource Strain (CARDIA) Difficulty of Paying Living Expenses: Not hard at all Food Insecurity: No Food Insecurity (09/20/2024) Received from [facility] Hunger Vital Sign Worried About Running Out of Food in the Last Year: Never true Ran Out of Food in the Last Year: Never true Transportation Needs: No Transportation Needs (01/14/2025) PRAPARE - Transportation Lack of Transportation (Medical): No Lack of Transportation (Non-Medical): No Physical Activity: Sufficiently Active (09/20/2024) Received from [facility] Exercise Vital Sign Days of Exercise per Week: 4 days Minutes of Exercise per Session: 50 min Stress: Stress Concern Present (09/20/2024) Received from [facility] [employer] - Occupational Stress Questionnaire Feeling of Stress : Rather much Social Connections: Socially Integrated (09/20/2024) Received from [facility] Social Connection and Isolation Panel [NHANES] Frequency of Communication with Friends and Family: More than three times a week Frequency of Social Gatherings with Friends and Family: More than three times a week Attends Uatsdin Services: More than 4 times per year Active Member of Clubs or Organizations: Yes Attends Club or Organization Meetings: More than 4 times per year Marital Status: Intimate Partner Violence: Not At Risk (01/14/2025) Humiliation, Afraid, Rape, and Kick questionnaire Fear of Current or Ex-Partner: No Emotionally Abused: No Physically Abused: No Sexually Abused: No Housing Stability: Low Risk (01/14/2025) Housing Stability Vital Sign Unable to Pay for Housing in the Last Year: No Number of Times Moved in the Last Year: 0 Homeless in the Last Year: No Patient Active Problem List Diagnosis Date Noted Closed nondisplaced fracture of first cervical vertebra (HCC) 01/14/2025 C2 cervical fracture (HCC) 01/14/2025 Closed fracture of nasal septum 01/14/2025 Nasal laceration 01/14/2025 Acute pain due to trauma 01/14/2025 Acute traumatic injury of cervical spine (HCC) 01/13/2025 Objective: Vitals: 01/22/25 1408 BP: 123/83 Pulse: 65 Body mass index is 30.3 kg/m?. General: alert, no acute distress, cooperative Face: Swelling throughout the craniofacial complex. Improving bruising. Facial nerve intact. V1, V2, V3 intact Eyes: Extraocular muscles intact. Vision grossly intact. Pupils symmetric. Conjunctiva within normal limits Lip/Mouth: Moist mucous membranes, no intraoral or vermilion lesions Neck: C-collar in place Nose: Nontender to palpation. Obvious swelling. Intranasally. Mild to moderate mucosal inflammation. No obvious nasal bone deviation Lungs: Non labored Heart: HR Regular, BP Stable Abdomen: Soft, NT, ND, No Hernia noted Skin: Warm, dry Extremities: extremities normal, strength wnl, no cyanosis or edema Neurologic: Cranial nerves intact, No defect. Psychi (more content not included)... [facility] 01-21-2025 History of Present illness Narrative [facility] [address] [place] [address] Dept: [phone] Dept Loc: [phone] Patient Name: Marjorie Graham Date: 01/21/25 Reason for Visit: Chief Complaint Patient presents with Follow-up S/P fall 01/13/25 Visit type: Established Patient HISTORY OF PRESENT ILLNESS 74 y.o. female status post mechanical fall. The incident happened around 3pm on 01/13 When the event happened the patient was in her garden and tripped over a hose and hit her face. Denies loss of consciousness. She presented to [facility] and was transferred here for C1 and C2 fracture and she was placed in a c-collar. CT imaging also with nondisplaced nasal bridge fracture and fracture nasal septum and avulsion at the tip of the alveolar spine. She did not receive Tdap as it has been given in the last year. INJURIES: -C1 vertebral body fracture -C2 odontoid process fracture -Nose fracture -Face laceration garrison 1.5 cm -Acute traumatic pain Incidental Findings: N/a Hospital course: Marjorie Graham is a 74 y.o. female with PMHx of HTN, HLD, fibromyalgia, T2DM, hypothyroidism, and GERD who fell in her garden, tripping over a hose, face first on 01/13/25 and presented to [facility]. She was transferred to [facility] as direct admit to Trauma ICU after trauma workup revealed C1 and C2 fractures, nasal septum fracture and nasal bridge laceration. She is neuro intact without deficits, GCS 15. Orthospine consulted with recommendations for medical management with aspen collar at all times, except for hygiene purposes with follow up outpatient with Dr. Brothers. [employer] REPA[employer]ER consulted for bedside swallow evaluation and patient cleared for easy chew diet, thin liquids and oral medications as tolerated. Diet advanced as tolerated. Pain well controlled on oral medications. PT/OT evaluation for home with PRN assist and outpatient PT. Patient tolerating diet well, pain well controlled on oral medications. She remains HDS and neuro intact with gross motor and and sensory intact. Patient discharged in stable condition. Consultations in Hospital: IP CONSULT TO ORTHOPAEDIC SURGERY IP CONSULT TO DIETITIAN IP CONSULT TO GERIATRICS IP CONSULT TO PALLIATIVE CARE IP CONSULT TO WOUND PREVENTION Subjective (Location/Symptom, Timing/Onset,Context/Setting, Quality, Duration, Modifying Factors, Severity) Note limiting factors. Patient doing well. Came straight here from Dr Brothers's office. Was told she is likely going to contiue collar for 5 weeks but has liberated use with meals. She is tolerating wearing the collar without difficulty. Able to eat and sleep. Pain well controlled and does not have much during the day. States upon awakening in the morning she experiences most of her pain but 2 Tylenol is enough to subside it. No numbness or tingling in the UE. No fever or chills. Has appointment with PRS tomorrow for evaluation of her nose. Post Concussion Syndrome Screening Positives Yes No Comments Headache: [] [x] Dizziness: [] [x] Sensitivity to Light/sound: [x] Memory Deficits: [] [x] Impaired Concentration: [] [x] Irritability: [] [x] Sleep Disturbance: [] [x] Balance Difficulties: [] [x] Nausea/Vomiting: [] [x] Visual Changes: [] [x] Feeling in a Fog: [] [x] Watches TV - 3 hours a day, smart phone - 2 hr/day, tablet / laptop/ PC - hr/day, EtOH / drugs - No Past head injuries: No Medical History[1] Surgical History[2] Family History[3] Social History Socioeconomic History Marital status: Spouse name: Not on file Number of children: Not on file Years of education: Not on file Highest education level: Not on file Occupational History Not on file Tobacco Use Smoking status: Never Passive exposure: Past Smokeless tobacco: Never Vaping Use Vaping status: Never Used Substance and Sexual Activity Alcohol use: Yes Alcohol/week: 1.0 standard drink of alcohol Types: 1 Cans of beer per week Comment: rare Drug use: Never Sexual activity: Defer Other Topics Concern Not on file Social History Narrative Not on file Social Drivers of Health Financial Resource Strain: Low Risk (09/20/2024) Received from [facility] Overall Financial Resource Strain (CARDIA) Difficulty of Paying Living Expenses: Not hard at all Food Insecurity: No Food Insecurity (09/20/2024) Received from [facility] Hunger Vital Sign Worried About Running Out of Food in the Last Year: Never true Ran Out of Food in the Last Year: Never true Transportation Needs: No Transportation Needs (01/14/2025) PRAPARE - Transportation Lack of Transportation (Medical): No Lack of Transportation (Non-Medical): No Physical Activity: Sufficiently Active (09/20/2024) Received from [facility] Exercise Vital Sign Days of Exercise per Week: 4 days Minutes of Exercise per Session: 50 min Stress: Stress Concern Present (09/20/2024) Received from [facility] [employer] - Occupational Stress Questionnaire Feeling of Stress : Rather much Social Connections: Socially Integrated (09/20/2024) Received from [facility] Social Connection and Isolation Panel [NHANES] Frequency of Communication with Friends and Family: More than three times a week Frequency of Social Gatherings with Friends and Family: More than three times a week Attends U[employer] Services: More than 4 times per year Active Member of Clubs or Organizations: Yes Attends Club or Organization Meetings: More than 4 times per year Marital Status: Intimate Partner Violence: Not At Risk (01/14/2025) Humiliation, Afraid, Rape, and Kick questionnaire Fear of Current or Ex-Partner: No Emotionally Abused: No Physically Abused: No Sexually Abused: No Housing Stability: Low Risk (01/14/2025) Housing Stability Vital Sign Unable to Pay for Housing in the Last Year: No Number of Times Moved in the Last Year: 0 Homeless in the Last Year: No Current Medications[4] Allergies[5] No orders to display POCT glucose meter Result Date: 01/14/2025 Performed by: [place] [address] CLIA ID: [id number] POCT glucose meter Result Date: 01/14/2025 [facility] [address] [address] CLIA ID: [id number] ECG 12 lead Sinus rhythm Left axis deviation No previous ECG available for comparison Electronically Signed On 01-14-2025 09:32:54 EDT by Juma Box POCT glucose meter Result Date: 01/14/2025 Performed by: [facility] [address] [address] CLIA ID: [id number] XR hand 3+ views right Result Date: 01/13/2025 Patient Name: MARJORIE GRAHAM DOB: 1950 Exam Date/Time: 01/13/2025 22:40 Procedure: XR HAND 3+ VIEWS RIGHT Ordering Provider: CAREY ALEKSANDAR Reason For Exam: S/p fall, R hand pain Gender: Female Age: 74 years Exam: XR HAND 3+ VIEWS RIGHT INDICATION: Hand pain after a fall. VIEWS: Right hand PA and lateral and oblique-3 images COMPARISON: None. FINDINGS: A monitor device overlies the second digit distal phalanx, limiting evaluation. The distal radius and distal ulna are intact. The bone mineralization is decreased. The metacarpals and phalanges are intact. Degenerative changes with joint space narrowing metacarpophalangeal joint and metacarpal carpal joint first digit. Chondrocalcinosis noted. There is narrowing of the DIP joint of the second digit. 1. No acute osseous process. 2. Osteoarthritis. Report Dictated on Electronically Signed By: Lanie Roldan MD Electronically Signed Date/Time: 01/13/2025 11:09 PM EDT XR chest 1 view Result Date: 01/13/2025 Patient Name: MARJORIE GRAHAM : 1950 Exam Date/Time: 01/13/2025 22:40 Procedure: XR CHEST 1 VIEW Ordering Provider: CAREY ALEKSANDAR Reason For Exam: S/p fall, trauma evaluation. INDICATION: Fall after trauma. VIEWS: Chest AP-one image COMPARISON: None. FINDINGS: The trachea is midline. The heart is not enlarged. The right hemidiaphragm is mildly elevated. There is no confluent consolidation. No radiographic acute cardiopulmonary process. Report Dictated on Electronically Signed By: Lanie Roldan MD Electronically Signed Date/Time: 01/13/2025 11:04 PM EDT XR cervical spine 2 or 3 views Result Date: 01/13/2025 Patient Name: MARJORIE GRAHAM : 1950 Exam Date/Time: 01/13/2025 22:41 Procedure: XR CERVICAL SPINE 2-3 VIEWS Ordering Provider: CAREY ALEKSANDAR Reason For Exam: c1 and c2 fx CERVICAL SPINE SERIES CLINICAL INDICATION: Neck pain. c1 and c2 fx AP, lateral, and odontoid views of the cervical spine were obtained. COMPARISON: None. FINDINGS: Alignment: Radiograph is were obtained in a cervical collar. There is grade 1 anterolisthesis at C4-5 and C6-7. Intervertebral Disc Spaces: Moderate disc height loss with endplate spurring at C5-6. Vertebrae: Known fracture of the C2 odontoid process is nondisplaced and unchanged. Known nondisplaced fracture of the anterior arch of C1 is not visible on this exam. There is severe diffuse degenerative changes of the facet joints bilaterally. Soft Tissues: No prevertebral swelling. Stable alignment of the nondisplaced odontoid fracture. Known fracture of C1 is not visible on this study. Report Dictated on Electronically Signed By: Spencer Marcelino MD Electronically Signed Date/Time: 01/13/2025 10:48 PM EDT CTA head neck angio w and wo IV contrast Result Date: 01/13/2025 [facility] Name: [facility] : 1950 [id number] Exam Date/Time: 01/13/2025 19:54 Procedure: CT HEAD NECK ANGIO W AND WO IV CONTRAST Ordering Provider: CAREY ALEKSANDAR Reason For Exam: C1 fracture after fall, eval for BCVI EXAMINATION: CT HEAD NECK ANGIO W AND WO IV CONTRAST CLINICAL HISTORY: C1 fracture after fall, eval for BCVI COMPARISON: None TECHNIQUE: CT angiogram of the head and neck were obtained with intravenous contrast. Thin isotropic axial imaging was obtained through the brain and neck from the vertex to the thoracic inlet during rapid IV contrast administration for evaluation of the vessels. Multiplanar and 3D maximum intensity projection reformulations were created from the raw CT data which were interpreted in conjunction with the axial images to render the findings listed below. Measurements of the internal carotid arteries are performed according to NASCET criteria comparing the narrowest diameter of the internal carotid artery with the normal internal carotid artery diameter more distally. Dose reduction was employed with automated exposure control. FINDINGS: CT BRAIN No mass or acute hemorrhage. No evidence of acute infarct. The ventricles are within normal limits for age. The skull, paranasal sinuses and tympanomastoid cavities are normal. CT ARTERIOGRAM Extracranial Circulation: Aortic Arch: No significant stenosis in the proximal brachiocephalic vessels. Carotid Arteries Right Common Carotid: No stenosis. Right Internal Carotid: No stenosis, dissection, or pseudoaneurysm. Left Common Carotid: No stenosis. Left Internal Carotid: No stenosis, dissection, or pseudoaneurysm. Vertebral Arteries: Patent with no stenosis or dissection. Intracranial Circulation Anterior Circulation: The internal carotid arteries are patent. ACAs and MCAs are patent. No vessel cutoff, aneurysm or focal hemodynamically significant stenosis. Vertebrobasilar Circulation: Intracranial vertebral arteries, PICA/AICA branches, basilar artery, SCAs and roll picker are patent. No vessel cutoff, aneurysm or focal hemodynamically significant stenosis. Other: Nondisplaced oblique odontoid process fracture of C2 and nondisplaced anterior arch fracture of C1 CT Head: No intracranial traumatic injuries. CTA Head/Neck: No evidence of blunt cerebrovascular injury. Nondisplaced acute fractures of C2 odontoid process and C1 anterior arch. Report Dictated on Electronically Signed By: Spencer Marcelino MD Electronically Signed Date/Time: 01/13/2025 9:36 PM EDT Incidental Findings: none Review of Systems Constitutional: Negative for chills and fever. HENT: Positive for facial swelling (and bruising improving). Musculoskeletal: Positive for neck pain (in the morning). Neurological: Negative for headaches. All other systems reviewed and are negative. Physical Exam Vitals and nursing note reviewed. HENT: Head: Normocephalic. Comments: Facial bruising in healing Mouth/Throat: Mouth: Mucous membranes are moist. Pharynx: Oropharynx is clear. Eyes: Extraocular Movements: Extraocular movements intact. Neck: Comments: [place] collar in place Cardiovascular: Pulses: Normal pulses. Pulmonary: Effort: Pulmonary effort is normal. No respiratory distress. Musculoskeletal: General: Normal range of motion. Neurological: General: No focal deficit present. Mental Status: She is oriented to person, place, and time. Comments: Strength 5/5 BUE Psychiatric: Mood and Affect: Mood normal. BP 131/85 (BP Location: Left arm, Patient Position: Sitting, BP Cuff Size: Adult) Pulse 67 Ht 1.6 m (5' 2.99) Wt 80.7 kg (178 lb) BMI 31.54 kg/m PROCEDURES: Unless otherwise noted below, none Procedures ASSESSMENT/PLAN/MDM: - concussion screening negative - Pain: continue Tylenol prn - PRS appointment tomorrow 01/22 - Ortho Spine Dr Brothers follow up in [address] Brothers - From a Trauma standpoint I do not foresee a need for further follow-up with this service. However, Marjorie Graham advised to call the office with any concerns or changing symptoms. On this date, 01/21/2025 I have spent 30 minutes reviewing previous notes, test results and face to face with the patient discussing the diagnosis and importance of compliance with the treatment Problem List Items Addressed This Visit Acute traumatic injury of cervical spine (HCC) - Primary Acute pain due to trauma Controlled Substance Monitoring- The patient's OARRS report was obtained and reviewed by myself on n/a Post Hospitalization Follow-ups: Trauma Ortho Spine Prs [1] Past Medical History: Diagnosis Date Cancer (CMS/HCC) (HCC) Delayed emergence from general anesthesia Diabetes mellitus (HCC) Disease of thyroid gland [2] Past Surgical History: Procedure Laterality Date APPENDECTOMY 1963 BACK SURGERY 1988 COLON SURGERY 1993 EYE SURGERY 2024 HYSTERECTOMY 2010 JOINT REPLACEMENT Left 2019 MASTECTOMY 1985 [3] No family history on file. [4] Current Outpatient Medications Medication Sig Dispense Refill acetaminophen (Tylenol) 500 MG tablet Take 2 tablets (1,000 mg) by mouth every 8 hours for 10 days. 30 tablet 0 bacitracin 500 UNIT/GM ointment Apply topically 2 times daily for 10 days. 28.4 g 0 buPROPion XL (Wellbutrin XL) 300 MG 24 hr tablet Take 300 mg by mouth daily. Do not crush, chew, or split. celecoxib (CeleBREX) 200 MG capsule Take 200 mg by mouth Daily as needed. Takes as needed (ordered daily initially) cholecalciferol (Vitamin D-3) 25 MCG (1000 UT) tablet Take 1 tablet by mouth daily. empagliflozin (Jardiance) 25 MG Take 25 mg by mouth daily. eye vitamin supplement (Ocuvite Eye Health Formula) capsule Take 1 capsule by mouth daily. levothyroxine (Synthroid, Levoxyl) 112 MCG tablet Take 112 mcg by mouth daily. losartan-hydroCHLOROthiazide (Hyzaar) 100-25 MG tablet Take 1 tablet by mouth daily. metFORMIN, OSM, (Fortamet) 500 MG 24 hr tablet Take 1,000 mg by mouth 2 times daily (with meals). Do not crush, chew, or split. mirabegron ER (Myrbetriq) 25 MG 24 hr tablet Take 25 mg by mouth Nightly. Do not crush, chew, or split. OMEPRAZOLE PO Take 40 mg by mouth Once. ondansetron ODT (Zofran-ODT) 4 MG disintegrating tablet Take 1 tablet (4 mg) by mouth every 8 hours as needed for nausea or vomiting for up to 7 days. 20 tablet 0 polyethylene glycol, PEG, 3350 (MiraLax) 17 GM/SCOOP powder Mix 1 capful (17 g) in 6-8 ounce of liquid and drink once daily as needed (constipation) for up to 5 days. 119 g 0 rosuvastatin (Crestor) 10 MG tablet Take 10 mg by mouth daily. sennosides (Senokot) 8.6 MG tablet Take 1 tablet (8.6 mg) by mouth Nightly for 10 days. 10 tablet 0 methocarbamol (Robaxin) 500 MG tablet Take 1 tablet (500 mg) by mouth every 8 hours as needed for muscle spasms for up to 10 days. 30 tablet 0 oxyCODONE (Roxicodone) 5 MG immediate release tablet Take 1 tablet (5 mg) by mouth every 6 hours as needed for moderate pain (4-6) for up to 5 days. (Patient not taking: Reported on 01/21/2025) 20 tablet 0 No current facility-administered medications for this visit. [5] Allergies Allergen Reactions Levothyroxine Vaoeveev-Xrhszutiv-Mbohmveg Swelling Pcn [Penicillins] Hives Sulfa Antibiotics Hives Ciprofloxacin Rash documented in this encounter [facility] 01-14-2025 Note Marjorie Graham has be en seen in consultation by [facility] during their admission to [facility]. They currently have established goals of care and we have signed off of their case. The patient has established follow-up with PCP. [facility] 01-14-2025 Nurse Note Patient/ given all discharge instructions with all questions answered. IV removed with no complications. Patient transport on the way [facility] 01-14-2025 Nurse Note Patient/ given all discharge instructions with all questions answered. IV removed with no complications. Patient transport on the way documented in this encounter [facility] 01-14-2025 Note Department of Trauma / Critical Care Discharge Summary Name: Marjorie Graham Date: 01/14/2025 2:31 PM : 1950 Age/Sex: 74 y.o. female Admit Date: 01/13/25 Discharge Date: 01/14/25 Attending: Skinny Carey MD Discharge Diagnosis: 1. Acute traumatic injury of cervical spine (HCC) 2. Closed fracture of nasal bone, initial encounter 3. Closed nondisplaced fracture of second cervical vertebra, unspecified fracture morphology, initial encounter (HCC) 4. Closed nondisplaced fracture of first cervical vertebra, unspecified fracture morphology, initial encounter ([facility]) 5. Laceration of nose, initial encounter 6. Acute pain due to trauma Problem List[1] Body mass index is 31.56 kg/m?. BMI Classification: Obese (BMI 30.0-39.9) Reason for Hospitalization: The patient was admitted for C1 and C2 fractures. Hospital Course (Care, treatment and services provided): Please see H&P and prior notes for more detailed summary of previous investigations and clinical assessment prior to this admission. Brief HPI 74 y.o. female status post mechanical fall. The incident happened around 3pm on 01/13 When the event happened the patient was in her garden and tripped over a hose and hit her face. Denies loss of consciousness. She presented to [facility] and was transferred here for C1 and C2 fracture and she was placed in a c-collar. CT imaging also with nondisplaced nasal bridge fracture and fracture nasal septum and avulsion at the tip of the alveolar spine. She did not receive Tdap as it has been given in the last year. INJURIES: -C1 vertebral body fracture -C2 odontoid process fracture -Nose fracture -Face laceration garrison 1.5 cm -Acute traumatic pain Incidental Findings: N/a Hospital course: Marjorie Graham is a 74 y.o. female with PMHx of HTN, HLD, fibromyalgia, T2DM, hypothyroidism, and GERD who fell in her garden, tripping over a hose, face first on 01/13/25 and presented to [facility]. She was transferred to [facility] as direct admit to Trauma ICU after trauma workup revealed C1 and C2 fractures, nasal septum fracture and nasal bridge laceration. She is neuro intact without deficits, GCS 15. Orthospine consulted with recommendations for medical management with aspen collar at all times, except for hygiene purposes with follow up outpatient with Dr. Brothers. AIR VALVE REPAIRER consulted for bedside swallow evaluation and patient cleared for easy chew diet, thin liquids and oral medications as tolerated. Diet advanced as tolerated. Pain well controlled on oral medications. PT/OT evaluation for home with PRN assist and outpatient PT. Patient tolerating diet well, pain well controlled on oral medications. She remains HDS and neuro intact with gross motor and and sensory intact. Patient discharged in stable condition. Consultations: IP CONSULT TO ORTHOPAEDIC SURGERY IP CONSULT TO DIETITIAN IP CONSULT TO GERIATRICS IP CONSULT TO PALLIATIVE CARE IP CONSULT TO WOUND PREVENTION PCP: FIFI GREEN Recommended Follow-ups: Orthospine Trauma Plastic Surgery Outpatient Physical Therapy Treatments and Procedures with outcomes: Labs: Data Review Data CBC with Differential: Lab Results Component Value Date WBC 8.8 01/14/2025 RBC 4.70 01/14/2025 HGB 13.2 01/14/2025 HCT 40.6 01/14/2025 PLT 238 01/14/2025 CMP: Lab Results Component Value Date NA 138 01/14/2025 K 4.0 01/14/2025 CL 104 01/14/2025 CO2 28 01/14/2025 BUN 21 01/14/2025 CREATININE 0.76 01/14/2025 GLUCOSE 153 (H) 01/14/2025 CALCIUM 9.2 01/14/2025 BMP: Hepatic Function Panel: Ionized Calcium: No components found for: IONCA Magnesium: No results found for: MG Phosphorus: No results found for: PHOS PT/INR: No results found for: PROTIME, INR PTT: No results found for: APTT[APTT Last 3 Troponin: No results found for: TROPONINI Urine Culture: No components found for: CURINE Blood Culture: No components found for: CBLOOD, CFUNGUSBL Blood Culture from Central Line: No components found for: CBLOODLN Stool Culture: No components found for: CSTOOL Sputum Culture: No components found for: CSPUTUM Sputum Culture for AFB: No components found for: CAFBSM Wound Culture: n/a Procedures: 01/13/25 by Trauma Service Nasal bridge laceration repair Significant Imaging Results: POCT glucose meter Result Date: 01/14/2025 Performed by: [facility], [address] [place] [id number] CLIA ID: [id number] POCT glucose meter Result Date: 01/14/2025 Performed by: [facility], [address] [place] [id number] CLIA ID: [id number] ECG 12 lead Sinus rhythm Left axis deviation No previous ECG available for comparison Electronically Signed On 01-14-2025 09:32:54 EDT by Juma Box POCT glucose meter Result Date: 01/14/2025 Performed by: [facility], [address] [place] [id number] CLIA ID: [id number] XR hand 3+ views right Result Date: (more content not included)... [facility] 01-14-2025 Hospital course Narrative Images from the original note were not included. Department of Trauma / Critical Care Discharge Summary Name: Marjorie Graham Date: 01/14/2025 2:31 PM : 1950 Age/Sex: 74 y.o. female Admit Date: 01/13/25 Discharge Date: 01/14/25 Attending: Skinny Carey MD Discharge Diagnosis: 1. Acute traumatic injury of cervical spine (HCC) 2. Closed fracture of nasal bone, initial encounter 3. Closed nondisplaced fracture of second cervical vertebra, unspecified fracture morphology, initial encounter ([facility]) 4. Closed nondisplaced fracture of first cervical vertebra, unspecified fracture morphology, initial encounter ([facility]) 5. Laceration of nose, initial encounter 6. Acute pain due to trauma Problem List[1] Body mass index is 31.56 kg/m . BMI Classification: Obese (BMI 30.0-39.9) Reason for Hospitalization: The patient was admitted for C1 and C2 fractures. Hospital Course (Care, treatment and services provided): Please see H&P and prior notes for more detailed summary of previous investigations and clinical assessment prior to this admission. Brief HPI 74 y.o. female status post mechanical fall. The incident happened around 3pm on 01/13 When the event happened the patient was in her garden and tripped over a hose and hit her face. Denies loss of consciousness. She presented to [facility] and was transferred here for C1 and C2 fracture and she was placed in a c-collar. CT imaging also with nondisplaced nasal bridge fracture and fracture nasal septum and avulsion at the tip of the alveolar spine. She did not receive Tdap as it has been given in the last year. INJURIES: -C1 vertebral body fracture -C2 odontoid process fracture -Nose fracture -Face laceration garrison 1.5 cm -Acute traumatic pain Incidental Findings: N/a Hospital course: Marjorie Graham is a 74 y.o. female with PMHx of HTN, HLD, fibromyalgia, T2DM, hypothyroidism, and GERD who fell in her garden, tripping over a hose, face first on 01/13/25 and presented to [facility]. She was transferred to [facility] as direct admit to Trauma ICU after trauma workup revealed C1 and C2 fractures, nasal septum fracture and nasal bridge laceration. She is neuro intact without deficits, GCS 15. Orthospine consulted with recommendations for medical management with aspen collar at all times, except for hygiene purposes with follow up outpatient with Dr. Brothers. AIR VALVE REPAIRER consulted for bedside swallow evaluation and patient cleared for easy chew diet, thin liquids and oral medications as tolerated. Diet advanced as tolerated. Pain well controlled on oral medications. PT/OT evaluation for home with PRN assist and outpatient PT. Patient tolerating diet well, pain well controlled on oral medications. She remains HDS and neuro intact with gross motor and and sensory intact. Patient discharged in stable condition. Consultations: IP CONSULT TO ORTHOPAEDIC SURGERY IP CONSULT TO DIETITIAN IP CONSULT TO GERIATRICS IP CONSULT TO PALLIATIVE CARE IP CONSULT TO WOUND PREVENTION PCP: FIFI GREEN Recommended Follow-ups: [facility]ospine Trauma Plastic Surgery Outpatient Physical Therapy Treatments and Procedures with outcomes: Labs: Data Review Data CBC with Differential: Lab Results Component Value Date WBC 8.8 01/14/2025 RBC 4.70 01/14/2025 HGB 13.2 01/14/2025 HCT 40.6 01/14/2025 PLT 238 01/14/2025 CMP: Lab Results Component Value Date NA 138 01/14/2025 K 4.0 01/14/2025 CL 104 01/14/2025 CO2 28 01/14/2025 BUN 21 01/14/2025 CREATININE 0.76 01/14/2025 GLUCOSE 153 (H) 01/14/2025 CALCIUM 9.2 01/14/2025 BMP: Hepatic Function Panel: Ionized Calcium: No components found for: IONCA Magnesium: No results found for: MG Phosphorus: No results found for: PHOS PT/INR: No results found for: PROTIME, INR PTT: No results found for: APTT[APTT Last 3 Troponin: No results found for: TROPONINI Urine Culture: No components found for: CURINE Blood Culture: No components found for: CBLOOD, CFUNGUSBL Blood Culture from Central Line: No components found for: CBLOODLN Stool Culture: No components found for: CSTOOL Sputum Culture: No components found for: CSPUTUM Sputum Culture for AFB: No components found for: CAFBSM Wound Culture: n/a Procedures: 01/13/25 by Trauma Service Nasal bridge laceration repair Significant Imaging Results: POCT glucose meter Result Date: 01/14/2025 Performed by: [address] [address] CLIA ID: [id number] POCT glucose meter Result Date: 01/14/2025 Performed by: [address] [address] CLIA ID: [id number] ECG 12 lead Sinus rhythm Left axis deviation No previous ECG available for comparison Electronically Signed On 01-14-2025 09:32:54 EDT by Juma Box POCT glucose meter Result Date: 01/14/2025 Performed by: [address] [address] CLIA ID: [id number] XR hand 3+ views right Result Date: 01/13/2025 Patient Name: MARJORIE GRAHAM : 1950 Exam Date/Time: 01/13/2025 22:40 Procedure: XR HAND 3+ VIEWS RIGHT Ordering Provider: CAREY ALEKSANDAR Reason For Exam: S/p fall, R hand pain Gender: Female Age: 74 years Exam: XR HAND 3+ VIEWS RIGHT INDICATION: Hand pain after a fall. VIEWS: Right hand PA and lateral and oblique-3 images COMPARISON: None. FINDINGS: A monitor device overlies the second digit distal phalanx, limiting evaluation. The distal radius and distal ulna are intact. The bone mineralization is decreased. The metacarpals and phalanges are intact. Degenerative changes with joint space narrowing metacarpophalangeal joint and metacarpal carpal joint first digit. Chondrocalcinosis noted. There is narrowing of the DIP joint of the second digit. 1. No acute osseous process. 2. Osteoarthritis. Report Dictated on Electronically Signed By: Lanie Roldan MD Electronically Signed Date/Time: 01/13/2025 11:09 PM EDT XR chest 1 view Result Date: 01/13/2025 Patient Name: MARJORIE GRAHAM : 1950 Exam Date/Time: 01/13/2025 22:40 Procedure: XR CHEST 1 VIEW Ordering Provider: CAREY ALEKSANDAR Reason For Exam: S/p fall, trauma evaluation. INDICATION: Fall after trauma. VIEWS: Chest AP-one image COMPARISON: None. FINDINGS: The trachea is midline. The heart is not enlarged. The right hemidiaphragm is mildly elevated. There is no confluent consolidation. No radiographic acute cardiopulmonary process. Report Dictated on Electronically Signed By: Lanie Roldan MD Electronically Signed Date/Time: 01/13/2025 11:04 PM EDT XR cervical spine 2 or 3 views Result Date: 01/13/2025 Patient Name: MARJORIE GRAHAM : 1950 Exam Date/Time: 01/13/2025 22:41 Procedure: XR CERVICAL SPINE 2-3 VIEWS Ordering Provider: CAREY ALEKSANDAR Reason For Exam: c1 and c2 fx CERVICAL SPINE SERIES CLINICAL INDICATION: Neck pain. c1 and c2 fx AP, lateral, and odontoid views of the cervical spine were obtained. COMPARISON: None. FINDINGS: Alignment: Radiograph is were obtained in a cervical collar. There is grade 1 anterolisthesis at C4-5 and C6-7. Intervertebral Disc Spaces: Moderate disc height loss with endplate spurring at C5-6. Vertebrae: Known fracture of the C2 odontoid process is nondisplaced and unchanged. Known nondisplaced fracture of the anterior arch of C1 is not visible on this exam. There is severe diffuse degenerative changes of the facet joints bilaterally. Soft Tissues: No prevertebral swelling. Stable alignment of the nondisplaced odontoid fracture. Known fracture of C1 is not visible on this study. Report Dictated on Electronically Signed By: Spencer Marcelino MD Electronically Signed Date/Time: 01/13/2025 10:48 PM EDT CTA head neck angio w and wo IV contrast Result Date: 01/13/2025 [facility] Name: [facility] : 1950 [id number] Exam Date/Time: 01/13/2025 19:54 Procedure: CT HEAD NECK ANGIO W AND WO IV CONTRAST Ordering Provider: CAREY ALEKSANDAR Reason For Exam: C1 fracture after fall, eval for BCVI EXAMINATION: CT HEAD NECK ANGIO W AND WO IV CONTRAST CLINICAL HISTORY: C1 fracture after fall, eval for BCVI COMPARISON: None TECHNIQUE: CT angiogram of the head and neck were obtained with intravenous contrast. Thin isotropic axial imaging was obtained through the brain and neck from the vertex to the thoracic inlet during rapid IV contrast administration for evaluation of the vessels. Multiplanar and 3D maximum intensity projection reformulations were created from the raw CT data which were interpreted in conjunction with the axial images to render the findings listed below. Measurements of the internal carotid arteries are performed according to NASCET criteria comparing the narrowest diameter of the internal carotid artery with the normal internal carotid artery diameter more distally. Dose reduction was employed with automated exposure control. FINDINGS: CT BRAIN No mass or acute hemorrhage. No evidence of acute infarct. The ventricles are within normal limits for age. The skull, paranasal sinuses and tympanomastoid cavities are normal. CT ARTERIOGRAM Extracranial Circulation: Aortic Arch: No significant stenosis in the proximal brachiocephalic vessels. Carotid Arteries Right Common Carotid: No stenosis. Right Internal Carotid: No stenosis, dissection, or pseudoaneurysm. Left Common Carotid: No stenosis. Left Internal Carotid: No stenosis, dissection, or pseudoaneurysm. Vertebral Arteries: Patent with no stenosis or dissection. Intracranial Circulation Anterior Circulation: The internal carotid arteries are patent. ACAs and MCAs are patent. No vessel cutoff, aneurysm or focal hemodynamically significant stenosis. Vertebrobasilar Circulation: Intracranial vertebral arteries, PICA/AICA branches, basilar artery, SCAs and roll picker are patent. No vessel cutoff, aneurysm or focal hemodynamically significant stenosis. Other: Nondisplaced oblique odontoid process fracture of C2 and nondisplaced anterior arch fracture of C1 CT Head: No intracranial traumatic injuries. CTA Head/Neck: No evidence of blunt cerebrovascular injury. Nondisplaced acute fractures of C2 odontoid process and C1 anterior arch. Report Dictated on Electronically Signed By: Spencer Marcelino MD Electronically Signed Date/Time: 01/13/2025 9:36 PM EDT Pending Test Results and Tests to Obtain as Outpatient: none Disposition: She was discharged to home Discharge Medications: She did have significant changes to their home medications (see below) Medication List START taking these medications acetaminophen 500 MG tablet Commonly known as: Tylenol Take 2 tablets (1,000 mg) by mouth every 8 hours for 10 days. bacitracin 500 UNIT/GM ointment Apply topically 2 times daily for 10 days. methocarbamol 500 MG tablet Commonly known as: Robaxin Take 1 tablet (500 mg) by mouth every 8 hours as needed for muscle spasms for up to 10 days. ondansetron ODT 4 MG disintegrating tablet Commonly known as: Zofran-ODT Take 1 tablet (4 mg) by mouth every 8 hours as needed for nausea or vomiting for up to 7 days. oxyCODONE 5 MG immediate release tablet Commonly known as: Roxicodone Take 1 tablet (5 mg) by mouth every 6 hours as needed for moderate pain (4-6) for up to 5 days. polyethylene glycol (PEG) 3350 17 GM/SCOOP powder Commonly known as: MiraLax Mix 1 capful (17 g) in 6-8 ounce of liquid and drink once daily as needed (constipation) for up to 5 days. sennosides 8.6 MG tablet Commonly known as: Senokot Take 1 tablet (8.6 mg) by mouth Nightly for 10 days. CONTINUE taking these medications buPROPion XL 300 MG 24 hr tablet Commonly known as: Wellbutrin XL celecoxib 200 MG capsule Commonly known as: CeleBREX cholecalciferol 25 MCG (1000 UT) tablet Commonly known as: Vitamin D-3 eye vitamin supplement capsule Jardiance 25 MG Generic drug: empagliflozin levothyroxine 112 MCG tablet Commonly known as: Synthroid, Levoxyl losartan-hydroCHLOROthiazide 100-25 MG tablet Commonly known as: Hyzaar metFORMIN (OSM) 500 MG 24 hr tablet Commonly known as: Fortamet Myrbetriq 25 MG 24 hr tablet Generic drug: mirabegron ER OMEPRAZOLE PO rosuvastatin 10 MG tablet Commonly known as: Crestor Where to Get Your Medications These medications were sent to [facility] [address] [place] [address] Hours: Sunday to Sunday 10 am to 6 pm acetaminophen 500 MG tablet bacitracin 500 UNIT/GM ointment methocarbamol 500 MG tablet ondansetron ODT 4 MG disintegrating tablet oxyCODONE 5 MG immediate release tablet polyethylene glycol (PEG) 3350 17 GM/SCOOP powder sennosides 8.6 MG tablet Discharge Condition: Physical Exam at the time of discharge: Please refer to the Progress note on day of discharge for a detailed exam. At the time of discharge the patient is good. Discharge Instructions: Activity: activity as tolerated, no driving while on analgesics, and maintain cervical collar at all times (ok to remove for hygiene) Diet: regular diet soft, easy chew Discharge needs: Home Self Car The patient's OARRS report was obtained and reviewed by myself on 01/14/25. Discharge Instructions Provided: Orthopaedic Surgery Discharge Instructions: -Weight bearing as tolerated -Activity as tolerated, except avoid heavy lifting/pulling/otherwise strenuous activity -Wear the cervical collar at all times do not take it off. Check skin around the collar for signs of skin breakdown. -Wear the cervical collar for most of the day, ok to remove for hygiene and eating. Check skin around the collar for signs of skin breakdown. -Follow-up outpatient with Dr. Brothers. The office contact information is provided in your paperwork. -IF you experience SEVERE worsening of pain in short period of time and/or significant numbness/weakness in extremities or new loss of bowel or bladder function please call the office or return to the emergency department -Take medications as prescribed by the hospital doctors Trauma Instructions: - We have prescribed narcotics to help with your pain (Oxycodone) and tylenol. Oxycodone should be taken for break through pain no more then every 6 hours, if Tylenol is not sufficient enough. - Robaxin has been prescribed, this is a muscle relaxer to help with your neck and shoulder pain. You can take this 2-3 times per day for help with pain. The goal is to have your pain tolerable as you slowly decrease the amount you take as you heal. - Continue taking stool softener, Miralax and/or, Senna, while taking oxycodone since narcotics can cause constipation. - Maintain sinus precautions: Sneeze with an open mouth No blowing nose Head of bed 30 degrees or more No bending or lifting more than 5 pounds Do not use straws - Follow up with Trauma Surgery in 2 weeks. If you cannot keep your appointment, please call to reschedule - Follow up with Orthospine, Dr. Brothers as recommended in 1 week (call for an appointment) - Follow up with Plastic Surgery, Dr. Jim PINEDA. Call for an appointment regarding your nasal bone fractures - Follow up with your Primary Care Physician, regarding your injury and elevated A1C level for possible medication adjustment regarding your diabetes in 1-2 weeks. Behavioral Health Resources for Trauma Survivors After experiencing a traumatic event, some people may find that they experience psychological distress that can impact their daily functioning and relationships. Common reactions to traumatic events include having unwanted memories or dreams of the event, feeling upset when reminded of the event, trying to avoid things that may remind you of the event, or experiencing changes in your thinking, relationships, and behaviors that negatively impact your life. There are resources, including counseling and medications, that can help you to talk about and adjust to the traumatic event and limit its impact on your life. Please consider calling one of the following behavioral health agencies for support: [facility] [address], [facility] [address] [facility] [address], [place] [address] [facility] [address], [facility] [address] [facility] [address] [facility], [facility] [address] Should you be out of the [facility] area, you can use this resource to locate local mental health agencies: [employer] Victim Assistance Program- provides resources and support to victims of violent crimes, offers victim advocates for those involved in legal proceedings 046-657-5639 Should you need immediate help in coping with symptoms or should you feel at risk of harming yourself or others, please use the following crisis resources: Crisis Hotline: 681 Crisis Text Helpine: Text 4HOPE to 761103 Call 911 or go to your nearest emergency department Attestation: I spent 32 minutes on pt discharge. [1] Patient Active Problem List Diagnosis Acute traumatic injury of cervical spine (HCC) Closed nondisplaced fracture of first cervical vertebra (HCC) C2 cervical fracture (HCC) Closed fracture of nasal septum Nasal laceration Acute pain due to trauma Cosigned by Simba Samayoa MD at 01/14/2025 3:26 PM EDT documented in this encounter [facility] 01-14-2025 Note PHYSICAL THERAPY [facility] Initial Evaluation Name/MRN: Marjorie Graham ([id number]) Evaluation Date: 01/14/2025 Date of : 1950 Admission Date: 01/13/2025 6:00 PM Age: 74 y.o. Room/Bed: T2-210/T2-210 A Discharge Recommendation: Outpatient PT Other: tbd Assessment IMPRESSION: Pt admitted s/p mech fall, C2 odontoid process and C1 anterior arch fxs, and nasal bone fxs. Pt ambulated functional distance with fww then without device. Noted no overt LOB during gait with fww, minimal LOB during gait without device. Recommend pt to use fww for household ambulation. Anticipate discharge to home home with assist as needed. Recommend outpatient PT. Admitting Diagnosis: Acute traumatic injury of cervical spine cervical fracture Prognosis: fair Performance Deficits /Impairments: Decreased Functional Mobility, Decreased ADL status, Decreased Endurance, and Decreased Balance Decision Making: Low Complexity Subjective Pt in bed. Agree with PT treatment. RN cleared for PT. Pain: Pt denies any current pain. Past Medical History: Medical History[1] Past Surgical History: Surgical History[2] Admission Diagnosis: Patient Active Problem List Diagnosis Date Noted Closed nondisplaced fracture of first cervical vertebra (HCC) 01/14/2025 C2 cervical fracture (HCC) 01/14/2025 Closed fracture of nasal septum 01/14/2025 Nasal laceration 01/14/2025 Acute pain due to trauma 01/14/2025 Acute traumatic injury of cervical spine (HCC) 01/13/2025 Medical Precautions: No active isolations Proper PPE donned/doffed in accordance with facility standards. Fall Risk: Vazquez Fall Risk Score: 60 (High Risk) Precautions/Restrictions: Braces or Orthoses: [place] Spine Precautions: C-Spine Precautions Lines/Drains/Airways: tele Family/Caregiver Present: none Overall Cognitive Status: WFL Overall Orientation Status: Oriented x4 Vision: Not Assessed Hearing: normal Social/Functional History Patient admitted from home. Lives With: Spouse Type of Home: single family home Home Layout: Two Level Home and Able to Live on Main Level Home Access: Stairs to Enter without Rails (# of stairs: 2) Bathroom Shower/Tub: Toilet: N/A Home Equipment: cane Homemaking Responsibilities: Independent Receives Help From: None Active Helpdesk Administrator: Yes Prior Level of Function Prior Level of ADL Function: Independent Prior Level of Mobility: Independent; Device: None Prior Level of Transfers: Independent Objective Lower Extremity Assessment AROM: WFL PROM: WFL Strength: Lower Extremity Strength Right Left Hip Flexion 4 4 Hip Abduction Hip Extension Hip External Rotation (ER) Hip Internal Rotation (IR) Knee Extension 4 4 Knee Flexion Ankle Dorsiflexion (DF) Ankle Plantarflexion (PF) 3+ 3+ Inversion Eversion Sensation: WFL Balance: Balance During Session: Posture: fair Sitting - Static: Modified Independent Sitting - Dynamic: Supervision Standing - Static: SBA Standing - Dynamic: SBA Bed Mobility: Supine to sit: Min Assist Scooting: SBA Transfers Sit to stand: Contact Guard Stand to sit: Contact Guard Stand pivot: Contact Guard Ambulation Ambulation 1 Assistive device(s) used: Front wheeled walker Assist level: Contact Guard Distance (ft): 6 Quality of gait: slow chayo Ambulation 2 Assistive device(s) used: Front wheeled walker Assist level: SBA Distance (ft): 125 Quality of gait: No LOB, slow chayo Ambulation 3 Assistive device(s) used: None Assist level: Min Assist Distance (ft): 30 Quality of gait: slow chayo, instability through all phases Sit to stand from EOB, from chair. Pt educated with spine precaution and donning/doffing brace. Outcome Measures AM-PAC How much HELP from another person do you currently need Turning from your back to your side while in a flat bed without using bedrails?: None Moving from lying on your back to sitting on the side of a flat bed without using bedrails?: A Little Moving to and from a bed to a chair (including a wheelchair)?: None Standing up from a chair using your arms (wheelchair or bedside chair)?: None Walking in a hospital room?: None Stair climbing assessed?: No AM-PAC Inpatient Mobility Raw Score (No Stairs) : 19 [facility] Score: Walked 25 ft or more (i.e. walked outside of room) Plan Pt would benefit from skilled acute PT services to address Strengthening, Gait Training, Balance Training, Functional Mobility Training, and Stair Training. Frequency: 3x/week for 4 weeks Barriers: Pain, Impaired balance, and Decreased endurance Safety/Education Safety Safety Devices in place: call light within reach, left in chair, gait belt, nurse notified, and no alarms engaged upon entry Restraints: No Education Education Given To: patient Education Provided: PT Role, PT Goals, and Plan of Care Education Method: Verbal Barriers to Learning: Education Outcome: Verbalized U (more content not included)... [facility] 01-14-2025 History of Present illness Narrative Images from the original note were not included. PHYSICAL THERAPY [facility] Initial Evaluation Name/MRN: Marjorie Graham ([id number]) Evaluation Date: 01/14/2025 Date of : 1950 Admission Date: 01/13/2025 6:00 PM Age: 74 y.o. Room/Bed: T2-210/T2-210 A Discharge Recommendation: Outpatient PT Other: tbd Assessment IMPRESSION: Pt admitted s/p mech fall, C2 odontoid process and C1 anterior arch fxs, and nasal bone fxs. Pt ambulated functional distance with fww then without device. Noted no overt LOB during gait with fww, minimal LOB during gait without device. Recommend pt to use fww for household ambulation. Anticipate discharge to home home with assist as needed. Recommend outpatient PT. Admitting Diagnosis: Acute traumatic injury of cervical spine cervical fracture Prognosis: fair Performance Deficits /Impairments: Decreased Functional Mobility, Decreased ADL status, Decreased Endurance, and Decreased Balance Decision Making: Low Complexity Subjective Pt in bed. Agree with PT treatment. RN cleared for PT. Pain: Pt denies any current pain. Past Medical History: Medical History[1] Past Surgical History: Surgical History[2] Admission Diagnosis: Patient Active Problem List Diagnosis Date Noted Closed nondisplaced fracture of first cervical vertebra (HCC) 01/14/2025 C2 cervical fracture (HCC) 01/14/2025 Closed fracture of nasal septum 01/14/2025 Nasal laceration 01/14/2025 Acute pain due to trauma 01/14/2025 Acute traumatic injury of cervical spine (HCC) 01/13/2025 Medical Precautions: No active isolations Proper PPE donned/doffed in accordance with facility standards. Fall Risk: Vaz[place] Fall Risk Score: 60 (High Risk) Precautions/Restrictions: Braces or Orthoses: [place] Spine Precautions: C-Spine Precautions Lines/Drains/Airways: tele Family/Caregiver Present: none Overall Cognitive Status: WFL Overall Orientation Status: Oriented x4 Vision: Not Assessed Hearing: normal Social/Functional History Patient admitted from home. Lives With: Spouse Type of Home: single family home Home Layout: Two Level Home and Able to Live on Main Level Home Access: Stairs to Enter without Rails (# of stairs: 2) Bathroom Shower/Tub: Toilet: N/A Home Equipment: cane Homemaking Responsibilities: Independent Receives Help From: None Active Helpdesk Administrator: Yes Prior Level of Function Prior Level of ADL Function: Independent Prior Level of Mobility: Independent; Device: None Prior Level of Transfers: Independent Objective Lower Extremity Assessment AROM: WFL PROM: WFL Strength: Lower Extremity Strength Right Left Hip Flexion 4 4 Hip Abduction Hip Extension Hip External Rotation (ER) Hip Internal Rotation (IR) Knee Extension 4 4 Knee Flexion Ankle Dorsiflexion (DF) Ankle Plantarflexion (PF) 3+ 3+ Inversion Eversion Sensation: WFL Balance: Balance During Session: Posture: fair Sitting - Static: Modified Independent Sitting - Dynamic: Supervision Standing - Static: SBA Standing - Dynamic: SBA Bed Mobility: Supine to sit: Min Assist Scooting: SBA Transfers Sit to stand: Contact Guard Stand to sit: Contact Guard Stand pivot: Contact Guard Ambulation Ambulation 1 Assistive device(s) used: Front wheeled walker Assist level: Contact Guard Distance (ft): 6 Quality of gait: slow chayo Ambulation 2 Assistive device(s) used: Front wheeled walker Assist level: SBA Distance (ft): 125 Quality of gait: No LOB, slow chayo Ambulation 3 Assistive device(s) used: None Assist level: Min Assist Distance (ft): 30 Quality of gait: slow chayo, instability through all phases Sit to stand from EOB, from chair. Pt educated with spine precaution and donning/doffing brace. Outcome Measures AM-PAC How much HELP from another person do you currently need Turning from your back to your side while in a flat bed without using bedrails?: None Moving from lying on your back to sitting on the side of a flat bed without using bedrails?: A Little Moving to and from a bed to a chair (including a wheelchair)?: None Standing up from a chair using your arms (wheelchair or bedside chair)?: None Walking in a hospital room?: None Stair climbing assessed?: No AM-PAC Inpatient Mobility Raw Score (No Stairs) : 19 [facility] Score: Walked 25 ft or more (i.e. walked outside of room) Plan Pt would benefit from skilled acute PT services to address Strengthening, Gait Training, Balance Training, Functional Mobility Training, and Stair Training. Frequency: 3x/week for 4 weeks Barriers: Pain, Impaired balance, and Decreased endurance Safety/Education Safety Safety Devices in place: call light within reach, left in chair, gait belt, nurse notified, and no alarms engaged upon entry Restraints: No Education Education Given To: patient Education Provided: PT Role, PT Goals, and Plan of Care Education Method: Verbal Barriers to Learning: Education Outcome: Verbalized Understanding and Continued Education Needed Goals Patient Stated Goal: To go home. Encounter Problems Encounter Problems (Active) Balance Patient will maintain dynamic standing balance for 3 minutes with modified independence in order to demonstrate decreased risk of falling. Start: 01/14/25 Expected End: 02/12/25 Mobility Patient will ambulate 250 feet with modified independence and least restrictive device in order to improve safety and independence with mobility. Start: 01/14/25 Expected End: 02/12/25 Patient will ascend and descend 2 stairs with one railing and supervision in order to safely negotiate home. Start: 01/14/25 Expected End: 02/12/25 Transfers Patient will perform bed mobility with modified independence in order to improve independence and prepare for out of bed mobility. Start: 01/14/25 Expected End: 02/12/25 Patient will complete functional transfer with LRD with modified independence in order to prepare for ambulation. Start: 01/14/25 Expected End: 02/12/25 Therapy Time Individual Co-Treatment Co-Evaluation Time In 1040 Time Out 1105 Minutes 25 Timed Code Treatment Minutes: 8 Minutes (FA) Jairo Brewer PT Patient's Physical Therapy Plan of Care supervision is transferred to a [facility] Physical Therapist. Goals and/or treatment plan was established in collaboration with patient/family/other representatives. [1] Past Medical History: Diagnosis Date Cancer (CMS/HCC) (HCC) Delayed emergence from general anesthesia Diabetes mellitus (HCC) Disease of thyroid gland [2] Past Surgical History: Procedure Laterality Date APPENDECTOMY 1964 BACK SURGERY 1988 COLON SURGERY 1993 EYE SURGERY 2024 HYSTERECTOMY 2010 JOINT REPLACEMENT Left 2019 MASTECTOMY 1985 Images from the original note were not included. Speech-Language Pathology SPEECH LANGUAGE PATHOLOGY [facility] Bedside Swallow Evaluation Patient Name: Marjorie Graham Evaluation Date: 01/14/2025 Date of : 1950 Admission Date: 01/13/2025 6:00 PM Age: 74 y.o. Room/Bed: T2-210/T2-210 A IMPRESSION: S/s oropharyngeal dysphagia. No overt clinical s/s pulmonary compromise with PO. Risk factors for aspiration include Gerd and presence of C-collar. RECOMMENDATION: Recommend Easy to chew solids and Thin liquids and meds as tolerated and the following precautions: - Upright positioning for all PO intake - Slow rate of intake - Small bites/sips - No straws per sinus precautions - Alternate solid and liquids Dysphagia NOMS: Level 6: Swallowing is safe, and individual eats and drinks independently and requires no more than minimal cueing. Individual usually self-cues when difficulty occurs. May need to avoid specific food items (e.g., popcorn) or require additional time (due to difficulty with mastication). Pt would benefit from skilled acute AIR VALVE REPAIRER services to ensure patient tolerance of the recommended diet and assess for potential diet upgrade. Frequency: 3 days/wk for 2 weeks Barriers: Medical complications Prognosis: good D/C Recommendations: to be determined Subjective Patient alert and cooperative. Seen upright in bed. Answers all basic questions with clear vocal quality. Follows all basic commands. No visitors at bedside. Spoke with RN Jeferson who cleared pt to be evaluated. Patient is in [place] C-collar. Dysphagia History: No history of AIR VALVE REPAIRER services in EMR with retrospective chart review Baseline Diet: regular/thin liquids Current Diet: Dietary Orders (From admission, onward) Start Ordered 01/13/25 2342 NPO diet without enteral medications Diet effective now Question: Medications? Answer: without enteral medications 01/13/25 2344 Tube Feeding: no Tracheostomy: no Recent Chest Xray/CT of Chest: XR chest 1 view 01/13/2025 Impression No radiographic acute cardiopulmonary process. Report Dictated on Electronically Signed By: Lanie Roldan MD Electronically Signed Date/Time: 01/13/2025 11:04 PM EDT Oxygen: Oxygen Therapy: None (Room air) Past Medical History: Medical History[1] Past Surgical History: Surgical History[2] Admission Diagnosis: Patient Active Problem List Diagnosis Date Noted Acute traumatic injury of cervical spine (HCC) 01/13/2025 History of Present Illness: 74 y.o. female status post mechanical fall. The incident happened around 3pm on 01/13 When the event happened the patient was in her garden and tripped over a hose and hit her face. Denies loss of consciousness. She presented to [facility] and was transferred here for C1 and C2 fracture and she was placed in a c-collar. CT imaging also with nondisplaced nasal bridge fracture and fracture nasal septum and avulsion at the tip of the alveolar spine. She did not receive Tdap as it has been given in the last year. Patient pain level currently is 6/10. Problem list: -C1 vertebral body fraccture -C2 dens fracture -Nose fracture -Face laceration garrison 1.5 cm -Acute traumatic pain -DM -GERD -HLD -Essential HTN -Hypothyroidism -Obesity class I Procedures: 01/13 - primary repair of nose laceration Patient Complaint: Patient voices no complaints at bedside. Pain: Pt denies any current pain. PPE Worn: gloves Objective Bedside swallow eval completed. Patient presents with mild oral and pharyngeal phase deficits. Oral Motor Mechanism Velopharyngeal Structure/Function (CN X & XI) - Unable to visualize, + gag Oral Hygiene: clean Swallowing Examination PO Trials - ice chips, (teaspoon, fed by clinician) - thin liquid, (teaspoon, cup edge, fed by clinician) - puree, (teaspoon, fed by clinician) - soft and bite sized solids - regular solids Oral Phase Pt with adequate oral receipt of PO trials. No anterior spillage. Mastication with regular textures appeared incomplete and prolonged. Oral transit time appears WFL. Mild oral residue. Additional Observations: Oral residue clears with a liquid wash. Pharyngeal Phase Hyolaryngeal excursion clinically appears adequate and timely per palpation. One-two swallows palpated per bolus, likely indicative of adequate pharyngeal clearance. No overt clinical s/s pulmonary compromise as evidenced by no cough, no throat clear, and no change in vocal quality. Additional Observations: Patient's cup sips are very audible, with delayed dry cough to initial thin liquid trials. Dry cough is not repeated as exam progresses. No straws per sinus precautions. Education Education Given: swallowing strategies, diet recommendations Given To: patient and RN Response: verbalizes understanding Goals Patient Stated Goal: None stated. Encounter Problems Encounter Problems (Active) Swallowing Patient will tolerate the least restrictive diet consistency to allow for safe consumption of daily meals (Initiated) Start: 01/14/25 Expected End: 01/28/25 Patient will tolerate recommended food and liquid consistencies without clinical signs and symptoms of aspirations (Initiated) Start: 01/14/25 Expected End: 01/28/25 Therapy Time AIR VALVE REPAIRER Individual Minutes Time In: 930 Time Out: 942 Minutes: 12 AUREA [place] [1] Past Medical History: Diagnosis Date Cancer (CMS/HCC) (HCC) Delayed emergence from general anesthesia Diabetes mellitus (HCC) Disease of thyroid gland [2] Past Surgical History: Procedure Laterality Date APPENDECTOMY 1964 BACK SURGERY 1988 COLON SURGERY 1993 EYE SURGERY 2024 HYSTERECTOMY 2010 JOINT REPLACEMENT Left 2019 MASTECTOMY 1985 documented in this encounter [facility] 01-14-2025 Note Formatting of this n ote might be different from the original. Care Managment Initial Assessment Date: 01/14/2025 Patient Name: Marjorie Graham : 1950 Patient Information Source of Information: Patient Cognition/Language: WFL - Within Functional Limits Permission given to speak with patient policy services representative/caregiver as indicated: Yes Confirmation of Payer with patient/family: Yes Payer Name: Medicare [place]: No Confirmation of Primary Care Physician: Confirmed PCP Name: Fifi Green Seen in last 2 years?: Yes Primary Caregiver: Self If assistance needed, confirmed caregiver ready, willing and able to care for patient at discharge: Yes Confirmed with: Marjorie Living Arrangements Current Residence: House Number of Floors 2 Number of Entry Steps: 1 Bed/Bath Levels: Both first floor Facility: Facility Name: Plan to Return: Lives with: Spouse/significant other Support Systems: Spouse/significant other, Children Activities of Daily Living Ambulation: Independent Bathing/Dressing: Independent Elimination/Continence/Toileting: Independent Feeding: Independent Who Assists with Activities of Daily Living: Instrumental Activities of Daily Living Prescription Coverage: Yes Pharmacy Used: [facility] in [place] Medication Management: Independent Transportation/Shopping: Independent Transportation Mode: Car (pt still drives) Needs Assistance with Transportation at Discharge: No Meal Preparation: Independent Laundry/Cleaning: Independent Finances/Bill Paying: Independent Communication: Independent Types of Care Services/Equipment Utilized Care Services: Dialysis Type: Durable Medical Equipment: Patient's Goal/Discharge Plan Patient expects to be discharged to: home? Discharge Planning Actions: Continue to follow Patient's Choice Rights and [employer] and Collaborative Relationships Disclosed as Indicated for Post-Acute Care: Interdisciplinary Team Engagement: PT/OT, Palliative Care, Geriatric Assessment Social Work Referral for: Additional Information: Pt admitted s/p mech fall, C2 odontoid process and C1 anterior arch fxs, and nasal bone fxs. Introduced myself and role. Pt lives with , whom can provide assistance and transportation when pt is discharged. PT/OT is pending. Will follow. [facility] 01-14-2025 Note Formatting of this n ote might be different from the original. Care Managment Initial Assessment Date: 01/14/2025 Patient Name: Marjorie Graham : 1950 Patient Information Source of Information: Patient Cognition/Language: WFL - Within Functional Limits Permission given to speak with patient policy services representative/caregiver as indicated: Yes Confirmation of Payer with patient/family: Yes Payer Name: Medicare [place]: No Confirmation of Primary Care Physician: Confirmed PCP Name: Fifi Green Seen in last 2 years?: Yes Primary Caregiver: Self If assistance needed, confirmed caregiver ready, willing and able to care for patient at discharge: Yes Confirmed with: Marjorie Living Arrangements Current Residence: House Number of Floors 2 Number of Entry Steps: 1 Bed/Bath Levels: Both first floor Facility: Facility Name: Plan to Return: Lives with: Spouse/significant other Support Systems: Spouse/significant other, Children Activities of Daily Living Ambulation: Independent Bathing/Dressing: Independent Elimination/Continence/Toileting: Independent Feeding: Independent Who Assists with Activities of Daily Living: Instrumental Activities of Daily Living Prescription Coverage: Yes Pharmacy Used: [facility] in [place] Medication Management: Independent Transportation/Shopping: Independent Transportation Mode: Car (pt still drives) Needs Assistance with Transportation at Discharge: No Meal Preparation: Independent Laundry/Cleaning: Independent Finances/Bill Paying: Independent Communication: Independent Types of Care Services/Equipment Utilized Care Services: Dialysis Type: Durable Medical Equipment: Patient's Goal/Discharge Plan Patient expects to be discharged to: home? Discharge Planning Actions: Continue to follow Patient's Choice Rights and [employer] and Collaborative Relationships Disclosed as Indicated for Post-Acute Care: Interdisciplinary Team Engagement: PT/OT, Palliative Care, Geriatric Assessment Social Work Referral for: Additional Information: Pt admitted s/p mech fall, C2 odontoid process and C1 anterior arch fxs, and nasal bone fxs. Introduced myself and role. Pt lives with , whom can provide assistance and transportation when pt is discharged. PT/OT is pending. Will follow. [facility] 01-14-2025 Miscellaneous Notes Care Managment Initial Assessment Date: 01/14/2025 Patient Name: Marjorie Graham : 1950 Patient Information Source of Information: Patient Cognition/Language: WFL - Within Functional Limits Permission given to speak with patient policy services representative/caregiver as indicated: Yes Confirmation of Payer with patient/family: Yes Payer Name: Medicare [place]: No Confirmation of Primary Care Physician: Confirmed PCP Name: Fifi Green Seen in last 2 years?: Yes Primary Caregiver: Self If assistance needed, confirmed caregiver ready, willing and able to care for patient at discharge: Yes Confirmed with: Marjorie Living Arrangements Current Residence: House Number of Floors 2 Number of Entry Steps: 1 Bed/Bath Levels: Both first floor Facility: Facility Name: Plan to Return: Lives with: Spouse/significant other Support Systems: Spouse/significant other, Children Activities of Daily Living Ambulation: Independent Bathing/Dressing: Independent Elimination/Continence/Toileting: Independent Feeding: Independent Who Assists with Activities of Daily Living: Instrumental Activities of Daily Living Prescription Coverage: Yes Pharmacy Used: [facility] in [place] Medication Management: Independent Transportation/Shopping: Independent Transportation Mode: Car (pt still drives) Needs Assistance with Transportation at Discharge: No Meal Preparation: Independent Laundry/Cleaning: Independent Finances/Bill Paying: Independent Communication: Independent Types of Care Services/Equipment Utilized Care Services: Dialysis Type: Durable Medical Equipment: Patient's Goal/Discharge Plan Patient expects to be discharged to: home? Discharge Planning Actions: Continue to follow Patient's Choice Rights and [employer] and Collaborative Relationships Disclosed as Indicated for Post-Acute Care: Interdisciplinary Team Engagement: PT/OT, Palliative Care, Geriatric Assessment Social Work Referral for: Additional Information: Pt admitted s/p mech fall, C2 odontoid process and C1 anterior arch fxs, and nasal bone fxs. Introduced myself and role. Pt lives with , whom can provide assistance and transportation when pt is discharged. PT/OT is pending. Will follow. Problem: Musculoskeletal - Adult Goal: Return mobility to safest level of function Outcome: Progressing Goal: Maintain proper alignment of affected body part Outcome: Progressing Goal: Return ADL status to a safe level of function Outcome: Progressing documented in this encounter [facility] 01-14-2025 Consult note Associated Order (s): IP CONSULT TO DIETITIAN Nutrition Assessment Type and Reason for Visit: Initial, Consult (poor intake/appetite for 5 days or more) Nutrition Recommendations/Plan: Continue with easy to chew diet. Ordered Ziarco Standard 1.4 @ 1400 via MNT protocol. Monitor nutritional status. Malnutrition Assessment: Malnutrition Status: At risk for malnutrition (Comment) Context: Acute Illness Findings of the 6 clinical characteristics of malnutrition: Energy Intake: 50% or less of estimated energy requirements for 5 or more days Weight Loss: No significant weight loss Body Fat Loss: No significant body fat loss Muscle Mass Loss: No significant muscle mass loss Fluid Accumulation: No significant fluid accumulation Guest Request Runner Strength: Not Performed Nutrition Assessment: Pt is a 74-year-old female with PMH significant for DM, GERD, HLD, essential HTN and hypothyroidism who presents status post mechanical fall. The incident happened around 3pm on 01/13 When the event happened the patient was in her garden and tripped over a hose and hit her face. Denies loss of consciousness. She presented to [facility] and was transferred here for C1 and C2 fracture and she was placed in a c-collar. CT imaging also with nondisplaced nasal bridge fracture and fracture nasal septum and avulsion at the tip of the alveolar spine. She did not receive Tdap as it has been given in the last year. Patient pain level currently is 6/10. AIR VALVE REPAIRER evaluated and approved an easy to chew diet; pt is on same. RD visited pt, she endorses eating small amounts throughout the day, does not eat large meals, weight has been stable, agrees to try ONS - will try Glarity (Ziarco Standard 1.4). HgBA1C was 8.6. Estimated Daily Nutrient Needs: Energy Requirements Based On: Kcal/kg Weight Used for Energy Requirements: [place] Weight for Energy Calculation (kg): 52.2 kg Total Energy Requirements (kcals/day): 25-30 kcals/kg = 4454-4625 kcals/day Weight Used for Protein Requirements: [place] Weight in Kg Used for Protein Requirements: 52.2 kg Estimated Total Protein (g/day): 1.1-1.2g protein/kg = 57-63g protein/day Estimated Daily Total Fluid (ml/day): 1305 mls Nutrition Related Findings: Net IO Since Admission: -235 mL [01/14/25 1201] Lives with: Spouse/significant other, Orientation Level: Oriented X4, Cognition: Follows commands, Appropriate judgement, Appropriate safety awareness, Appropriate attention/concentration, Appropriate for developmental age, Best Verbal Response: Oriented, Teeth: Intact, Other (Comment) (multiple caps, bridges) Feeding: Independent Room Service Room Service: Selective Mike Scale Score: 17. Gastrointestinal (WDL): Within Defined Limits Edema: no edema Oxygen Therapy: None (Room air) Meds reviewed: Scheduled: Scheduled Meds[1] Continuous: Continuous Meds[2] Current Nutrition Therapies: Adult diet Easy to Chew Current Oral Intake Average Meal Intake: 26-50% Average Supplements Intake: None Ordered Anthropometric Measures: Height: 160 cm (5' 2.99) Current Body Weight: 80.8 kg (178 lb 2.1 oz) Weight Source: Bed Scale [place] Body Weight (lbs) (Calculated): 115 lbs [place] Body Weight (Kg) (Calculated): 52 kg % [place] Body Weight (Calculated): 154.9 % BMI (kg/m2) (Calculated): 31.6 BMI Categories: Obese Class 1 (BMI 30.0-34.9) Wt Readings from Last 10 Encounters: 01/13/25 80.8 kg (178 lb 2.1 oz) LABS: Recent Labs 01/14/25 0333 NA 138 K 4.0 CL 104 CO2 28 BUN 21 CREATININE 0.76 GLUCOSE 153* CALCIUM 9.2 Nutrition Diagnosis: Predicted inadequate energy intake related to acute injury/trauma as evidenced by intake 26-50% Nutrition Interventions: Nutrition Education/Counseling: No recommendation at this time Coordination of Nutrition Care: Continue to monitor while inpatient Goals: Goals: PO intake 75% or greater, by next RD assessment Nutrition Monitoring and Evaluation: Food/Nutrient Intake Outcomes: Food and Nutrient Intake, Supplement Intake Physical Signs/Symptoms Outcomes: Biochemical Data, GI Status, Weight, Skin, Nutrition Focused Physical Findings, Hemodynamic Status, Fluid Status or Edema Discharge Planning: Too soon to determine Shannan Barrett RD,LD,[facility] Contact: *[phone] or [facility] Chat [1] acetaminophen, 1,000 mg, Oral, 3 times per day bacitracin, , Topical, TID buPROPion XL, 300 mg, Oral, Daily losartan, 100 mg, Oral, Daily And hydroCHLOROthiazide, 25 mg, Oral, Daily insulin lispro, 0-12 Units, SubCUTAneous, TID WC And insulin lispro, 0-12 Units, SubCUTAneous, Nightly levothyroxine, 112 mcg, Oral, Daily mupirocin, 1 Application, Nasal, BID polyethylene glycol (PEG) 3350, 17 g, Oral, Daily rosuvastatin, 10 mg, Oral, Daily sennosides, 1 tablet, Oral, Nightly [2] [employer] 01-14-2025 Consult note Associated Order (s): IP CONSULT TO DIETITIAN Nutrition Assessment Type and Reason for Visit: Initial, Consult (poor intake/appetite for 5 days or more) Nutrition Recommendations/Plan: Continue with easy to chew diet. Ordered Ziarco Standard 1.4 @ 1400 via MNT protocol. Monitor nutritional status. Malnutrition Assessment: Malnutrition Status: At risk for malnutrition (Comment) Context: Acute Illness Findings of the 6 clinical characteristics of malnutrition: Energy Intake: 50% or less of estimated energy requirements for 5 or more days Weight Loss: No significant weight loss Body Fat Loss: No significant body fat loss Muscle Mass Loss: No significant muscle mass loss Fluid Accumulation: No significant fluid accumulation Guest Request Runner Strength: Not Performed Nutrition Assessment: Pt is a 74-year-old female with PMH significant for DM, GERD, HLD, essential HTN and hypothyroidism who presents status post mechanical fall. The incident happened around 3pm on 01/13 When the event happened the patient was in her garden and tripped over a hose and hit her face. Denies loss of consciousness. She presented to [facility] and was transferred here for C1 and C2 fracture and she was placed in a c-collar. CT imaging also with nondisplaced nasal bridge fracture and fracture nasal septum and avulsion at the tip of the alveolar spine. She did not receive Tdap as it has been given in the last year. Patient pain level currently is 6/10. AIR VALVE REPAIRER evaluated and approved an easy to chew diet; pt is on same. RD visited pt, she endorses eating small amounts throughout the day, does not eat large meals, weight has been stable, agrees to try ONS - will try Glarity (Ziarco Standard 1.4). HgBA1C was 8.6. Estimated Daily Nutrient Needs: Energy Requirements Based On: Kcal/kg Weight Used for Energy Requirements: [place] Weight for Energy Calculation (kg): 52.2 kg Total Energy Requirements (kcals/day): 25-30 kcals/kg = 1972-7829 kcals/day Weight Used for Protein Requirements: [place] Weight in Kg Used for Protein Requirements: 52.2 kg Estimated Total Protein (g/day): 1.1-1.2g protein/kg = 57-63g protein/day Estimated Daily Total Fluid (ml/day): 1305 mls Nutrition Related Findings: Net IO Since Admission: -235 mL [01/14/25 1201] Lives with: Spouse/significant other, Orientation Level: Oriented X4, Cognition: Follows commands, Appropriate judgement, Appropriate safety awareness, Appropriate attention/concentration, Appropriate for developmental age, Best Verbal Response: Oriented, Teeth: Intact, Other (Comment) (multiple caps, bridges) Feeding: Independent Room Service Room Service: Selective Mike Scale Score: 17. Gastrointestinal (WDL): Within Defined Limits Edema: no edema Oxygen Therapy: None (Room air) Meds reviewed: Scheduled: Scheduled Meds[1] Continuous: Continuous Meds[2] Current Nutrition Therapies: Adult diet Easy to Chew Current Oral Intake Average Meal Intake: 26-50% Average Supplements Intake: None Ordered Anthropometric Measures: Height: 160 cm (5' 2.99) Current Body Weight: 80.8 kg (178 lb 2.1 oz) Weight Source: Bed Scale [place] Body Weight (lbs) (Calculated): 115 lbs [place] Body Weight (Kg) (Calculated): 52 kg % [place] Body Weight (Calculated): 154.9 % BMI (kg/m2) (Calculated): 31.6 BMI Categories: Obese Class 1 (BMI 30.0-34.9) Wt Readings from Last 10 Encounters: 01/13/25 80.8 kg (178 lb 2.1 oz) LABS: Recent Labs 01/14/25 0333 NA 138 K 4.0 CL 104 CO2 28 BUN 21 CREATININE 0.76 GLUCOSE 153* CALCIUM 9.2 Nutrition Diagnosis: Predicted inadequate energy intake related to acute injury/trauma as evidenced by intake 26-50% Nutrition Interventions: Nutrition Education/Counseling: No recommendation at this time Coordination of Nutrition Care: Continue to monitor while inpatient Goals: Goals: PO intake 75% or greater, by next RD assessment Nutrition Monitoring and Evaluation: Food/Nutrient Intake Outcomes: Food and Nutrient Intake, Supplement Intake Physical Signs/Symptoms Outcomes: Biochemical Data, GI Status, Weight, Skin, Nutrition Focused Physical Findings, Hemodynamic Status, Fluid Status or Edema Discharge Planning: Too soon to determine Shannan Barrett RD,LD,[facility] Contact: *[phone] or [facility] Chat [1] acetaminophen, 1,000 mg, Oral, 3 times per day bacitracin, , Topical, TID buPROPion XL, 300 mg, Oral, Daily losartan, 100 mg, Oral, Daily And hydroCHLOROthiazide, 25 mg, Oral, Daily insulin lispro, 0-12 Units, SubCUTAneous, TID WC And insulin lispro, 0-12 Units, SubCUTAneous, Nightly levothyroxine, 112 mcg, Oral, Daily mupirocin, 1 Application, Nasal, BID polyethylene glycol (PEG) 3350, 17 g, Oral, Daily rosuvastatin, 10 mg, Oral, Daily sennosides, 1 tablet, Oral, Nightly [2] Associated Order(s): IP CONSULT TO PALLIATIVE CARE Images from the original note were not included. Palliative Care Initial Consult Chief Complaint: Marjorie Graham is a 74 y.o. female with chief complaint of fall Palliative Care is actively following. Full consult attempted. Discharge order now in place. Marjorie Graham is a 74 y.o. female with PMH cancer, HLP, hypothyroidism, HTN, asthma, fibromyalgia, DM 2. Follows with OP ophtho d/t sinus surgery in April, woke up with diplopia, had to get ELENA myectomy. She takes bupropion for fibromyalgia. Pt had mechanical fall, tripped over garden hose, hit face. Transferred to [facility] from [facility] for C1-C2 fracture and nasal bridge fracture. Pt being DC to home, in process of getting dressed to leave. She has no unaddressed questions or concerns about her care. Explained reason for Palliative care trigger consult. She has passed speech evaluation, has appropriate follow-up, GOC established and no uncontrolled symptoms. No need for OP follow-up. Linda Yeager MD Associated Order(s): IP CONSULT TO GERIATRICS [facility] Inpatient Consult Service Admission Date: 01/13/2025 Admission Status: INPATIENT Chief Complaint: neck pain Reason for Appointment Geriatrics consulted for paris fall Assessment & Plan Principal Problem: Acute traumatic injury of cervical spine (HCC) Active Problems: Closed nondisplaced fracture of first cervical vertebra (HCC) C2 cervical fracture (HCC) Closed fracture of nasal septum Nasal laceration Acute pain due to trauma Fall -Multiple risk factors including decreased vision, diabetes, and possible medication side effect -Continue PT/OT as able while inpatient -Vitamin D pending -Check orthostatic vital signs as able -Medications with associated fall risk include: losartan-hydrochlorothiazide, jardiance (hypoglycemia) -History of diplopia following sinus surgery in April. Continue to follow with Dr Buckner outpatient (ophthalmology surgery). Patient has prism lens and planning for updated prescription in January -Continue fall precautions C1 Ring Fracture, Non-Displaced type II fracture of odontoid -Management per orthospine-recommend no acute surgical intervention. [place] collar in place Non-displaced nasal bridge fracture, avulsion to tip of alveolar spine -Laceration to nasal bridge repaired -referral to plastic surgery outpatient Acute pain due to trauma --Recommend scheduled acetaminophen 1g TID with PRN oxycodone (2.5 mg - 5 mg) PRN for breakthrough No results found for: ALT, AST, GGT, ALKPHOS, BILITOT --Monitor for mental status change with scheduled robaxin -Optimize nonpharmacologic pain treatment modalities. -continue scheduled bowel regimen while on narcotics Debility --Related to acute injury, diplopia, fibromyalgia --At baseline patient independent of ADLs and IADLs --Await PT/OT eval --Anticipate d/c to home with home care level of PT/OT Fibromyalgia '-Continue home prescribed bupropion 300 mg daily At Risk for Delirium -Risk factors include: pain, head injury, age, ICU environment -Delirium Protocol -Recommend Melatonin nightly PRN insomnia -Avoid sedating/anticholinergic medications -Encourage family visits -Encourage sleep hygiene -Minimize barriers to nutrition -Optimize sensory input and access to assistive devices where indicated -Encourage time up in chair - including at meals - as able -Unless contraindicated, encourage regular ambulation with assistance -D/c Roberts, restraints, IV lines, as able I spent total time of 60 minutes face to face with the patient and/or family discussing the diagnosis and importance of compliance with the treatment plan as well as documenting on the day of the visit. In addition, that total time includes the following: -Reviewing previous notes, -Reviewing labs, -Obtaining and/or reviewing separately obtained history, -Communicating results to the patient/family/caregiver, -Counseling/educating the patient/family/caregiver, -Documenting clinical information in the patients electronic record, and -Performing a medically appropriate exam and/or evaluation Subjective: HPI 74 y.o. year-old female with PMH of diabetes mellitus, fibromyalgia, hypothyroid presented as a direct admission on 01/13/25 (transferred from [facility]) after a mechanical fall at home with head injury. Patient tripped over garden hose and found to have C1 fracture, nondisplaced type II fracture of odontoid. Admitted for orthospine evaluation. Per review of the chart, H&P, and multiple progress notes -CT head with no intracranial abnormality -CT maxillofacial with nondisplaced nasal bridge fracture, avulsion at the tip of the alveolar spine -Evaluated by orthospine with no acute surgical intervention indicated. Plan to remain in aspen collar until outpatient follow up appointment. Recommend WBAT -Laceration of the nasal bridge repaired -Recent labs reviewed with BMP unremarkable, vitamin B12 335, CBC unremarkable, TSH 1.86, ethanol <10 Geriatrics ED screen: Quick Cognitive Screen (QCS): Nursing Delirium Screen (Nu-Desc): Conversation with patient: -Patient reports she was outside and tripped over her garden hose hitting her face on the ground. Reports she has had double vision in her left eye since April after a sinus surgery procedure. Reports she sees double when looking to the side. 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 Doing well on myrbetriq Sleep (including use of medications/OTC for sleep): Denies Alcohol/drugs: Occasional alcohol use Mood: OK Memory: Good, may forget what she wants to grab when entering a room on occasion Numbness: Denies Vision: Diplopia since sinus surgery in April. 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 -She has had double vision. Working to strengthen her eye muscles. Planning for prescription change in prism lens end of January. Concern for depth perception. Assists her in unfamiliar areas however she tripped in the yard. -She fell in the stair well and two other minor falls in the past 5 years -She is not using an assistive device at baseline -She has had an increase in energy in the past few months -Working to get a walker for her at discharge. Plan to return home on discharge -No cognitive concerns at baseline. Advance Care Planning Healthcare Power of Health Services Director: Yes, Financial Power of Health Services Director: Yes, Living Will:Yes Code Status: Full Code Allergies[1] Current Medications[2] Medical History[3] Surgical History[4] Social History Tobacco Use Smoking status: Never Passive exposure: Past Smokeless tobacco: Never Substance Use Topics Alcohol use: Yes Alcohol/week: 1.0 standard drink of alcohol Types: 1 Cans of beer per week Comment: rare Social History Social History Narrative Not on file Family History Family History[5] No family status information on file. Parents are Review of Systems Constitutional: Negative for activity change, appetite change and fatigue. HENT: Positive for facial swelling and sinus pressure. Negative for sore throat and trouble swallowing. Eyes: Positive for visual disturbance (diplopia prior to admission). Respiratory: Negative for cough and shortness of breath. Cardiovascular: Negative for chest pain and leg swelling. Gastrointestinal: Negative for abdominal pain and constipation. Genitourinary: Negative for difficulty urinating. Musculoskeletal: Positive for arthralgias and neck pain. Skin: Positive for color change and wound (laceration repaired to nose). Neurological: Positive for weakness. Negative for dizziness, light-headedness and headaches. Psychiatric/Behavioral: Negative for confusion, dysphoric mood and sleep disturbance. The patient is not nervous/anxious. Functional Status Prior to Admission: (I: Independent, A: Assisted, D: Dependent) ADLs I A D Notes Bathing [x] [] [] Dressing [x] [] [] Toileting [x] [] [] Transfers [x] [] [] Feeding [x] [] [] Ambulation [x] [] [] Assistive devices: none IADLs I A D Telephone [x] [] [] Transportation [x] [] [] No reported accidents, tickets, car damage Shopping [x] [] [] Meal prep [x] [] [] Housework [x] [] [] Medications [x] [] [] Sets up own pillbox Finances [x] [] [] Objective: BP 130/75 Pulse 64 Temp 36.8 C (98.2 F) (Temporal) Resp 16 Ht 5' 2.99 (1.6 m) Wt 178 lb 2.1 oz (80.8 kg) SpO2 94% BMI 31.56 kg/m Intake/Output Summary (Last 24 hours) at 01/14/2025 1316 Last data filed at 01/14/2025 0611 Gross per 24 hour Intake 665 ml Output 900 ml Net -235 ml Wt Readings from Last 3 Encounters: 01/13/25 178 lb 2.1 oz (80.8 kg) Physical Exam Vitals and nursing note reviewed. Constitutional: General: She is not in acute distress. Appearance: She is not ill-appearing. Comments: Patient in sitting in bed. HENT: Head: Normocephalic and atraumatic. Right Ear: External ear normal. Left Ear: External ear normal. Nose: Signs of injury, laceration and congestion present. Mouth/Throat: Mouth: Mucous membranes are moist. Pharynx: Oropharynx is clear. Eyes: General: Right eye: No discharge. Left eye: No discharge. Extraocular Movements: Extraocular movements intact. Conjunctiva/sclera: Conjunctivae normal. Pupils: Pupils are equal, round, and reactive to light. Comments: Bilateral periorbital edema and ecchymosis Neck: Comments: [place] collar in place Cardiovascular: Rate and Rhythm: Normal rate and regular rhythm. Pulses: Normal pulses. Pulmonary: Effort: Pulmonary effort is normal. No respiratory distress. Breath sounds: Normal breath sounds. Abdominal: General: Bowel sounds are normal. There is no distension. Palpations: Abdomen is soft. Tenderness: There is no abdominal tenderness. Musculoskeletal: Right lower leg: No edema. Left lower leg: Edema present. Skin: General: Skin is warm and dry. Findings: Bruising and laceration (repaired to nose) present. Neurological: Mental Status: She is alert and oriented to person, place, and time. Cranial Nerves: No cranial nerve deficit. Sensory: Sensation is intact. Motor: No weakness. Psychiatric: Attention and Perception: Attention normal. Mood and Affect: Mood normal. Speech: Speech normal. Behavior: Behavior is cooperative. Mini-Mental Status Exam: Deferred Labs and Imaging: Recent Results (from the past 24 hours) ECG 12 lead Collection Time: 01/13/25 11:58 PM Result Value Ref Range Heart Rate 69 bpm QRSD Interval 98 ms QT Interval 420 ms QTC Interval 451 ms P Deer 27 degrees QRS Deer -39 degrees T [place] 47 degrees FL Interval 174 ms POCT glucose meter Collection Time: 01/14/25 12:17 AM Result Value Ref Range Glucose 141 (H) 70 - 100 mg/dL CBC Collection Time: 01/14/25 3:33 AM Result Value Ref Range Auto WBC 8.8 3.6 - 10.7 10*3/uL RBC 4.70 3.80 - 5.20 10*6/uL Hemoglobin 13.2 11.7 - 16.0 g/dL Hematocrit 40.6 35.0 - 47.0 % MCV 86.4 77.0 - 99.0 fL MCH 28.1 26.0 - 34.0 pg MCHC 32.5 30.5 - 36.0 % RDW 12.9 11.5 - 15.0 % Platelets 238 140 - 440 10*3/uL MPV 9.9 9.0 - 12.7 fL Basic metabolic panel Collection Time: 01/14/25 3:33 AM Result Value Ref Range SODIUM 138 136 - 145 mmol/L POTASSIUM 4.0 3.5 - 5.1 mmol/L CHLORIDE 104 98 - 107 mmol/L CARBON DIOXIDE 28 23 - 31 mmol/L UREA NITROGEN 21 9 - 23 mg/dL CREATININE 0.76 0.57 - 1.11 mg/dL GLUCOSE 153 (H) 82 - 115 mg/dL CALCIUM 9.2 8.8 - 10.0 mg/dL ANION GAP 6 3 - 13 mmol/L eGFR 81.3 >60.0 mL/min/1.73m*2 Ethanol Collection Time: 01/14/25 3:33 AM Result Value Ref Range ETHANOL IN SER/PLAS <10 <10 mg/dL TSH Collection Time: 01/14/25 3:33 AM Result Value Ref Range THYROID STIMULATING HORMONE 1.86 0.35 - 4.94 uIU/mL Vitamin B12 Collection Time: 01/14/25 3:33 AM Result Value Ref Range VITAMIN B12 335 213 - 816 pg/mL Hemoglobin A1c Collection Time: 01/14/25 3:33 AM Result Value Ref Range HEMOGLOBIN A1C 8.0 (H) <5.7 %HbA1C ESTIMATED AVERAGE GLUCOSE 183 mg/dL POCT glucose meter Collection Time: 01/14/25 10:31 AM Result Value Ref Range Glucose 146 (H) 70 - 100 mg/dL POCT glucose meter Collection Time: 01/14/25 11:56 AM Result Value Ref Range Glucose 153 (H) 70 - 100 mg/dL Lab Results Component Value Date TSH 1.86 01/14/2025 No components found for: B12 No results found for: VITD25 Reviewed: active problem list, medication list, allergies, family history, social history, health maintenance, notes from last encounter, notes from last several encounters, lab results, imaging Follow-up: will sign off, please call if questions ROXANN Lopez CNP 01/14/25 1:16 PM [1] Allergies Allergen Reactions Levothyroxine Vdfxhjve-Zwbsgrgdb-Edsfljdw Swelling Pcn [Penicillins] Hives Sulfa Antibiotics Hives Ciprofloxacin Rash [2] Current Facility-Administered Medications: acetaminophen (Tylenol) tablet 1,000 mg, 1,000 mg, Oral, 3 times per day, Clovis Cardona MD albuterol (2.5 MG/3ML) 0.083% nebulizer solution 2.5 mg, 2.5 mg, Nebulization, q2h PRN, Obinna Solo MD bacitracin ointment, , Topical, TID, Obinna Solo MD, Given at 01/14/25 1033 buPROPion XL (Wellbutrin XL) 24 hr tablet 300 mg, 300 mg, Oral, Daily, Clovis Cardona MD, 300 mg at 01/14/25 1133 celecoxib (CeleBREX) capsule 200 mg, 200 mg, Oral, Daily PRN, Clovis Cardona MD dextrose 5 % infusion, 100 mL/hr, IntraVENous, PRN, Obinna Solo MD dextrose 50 % solution 12.5 g, 12.5 g, IntraVENous, PRN, Obinna Solo MD dicyclomine (Bentyl) capsule 10 mg, 10 mg, Oral, q6h PRN, Clovis Cardona MD glucagon (human recombinant) injection 1 mg, 1 mg, IntraMUSCular, PRN, Obinna Solo MD glucose oral gel 15 g, 15 g, Oral, PRN, Obinna Solo MD hydrALAZINE (Apresoline) injection 10 mg, 10 mg, IntraVENous, q2h PRN, Obinna Solo MD losartan (Cozaar) tablet 100 mg, 100 mg, Oral, Daily, 100 mg at 01/14/25 1042 AND hydroCHLOROthiazide (HYDRODiuril) tablet 25 mg, 25 mg, Oral, Daily, Clovis Cardona MD, 25 mg at 01/14/25 1133 [DISCONTINUED] HYDROmorphone (Dilaudid) injection 0.25 mg, 0.25 mg, IntraVENous, q3h PRN, 0.25 mg at 01/14/25 0327 OR HYDROmorphone (Dilaudid) injection 0.5 mg, 0.5 mg, IntraVENous, q3h PRN, Clovis Cardona MD Insulin Lispro (Humalog) injection 0-12 Units, 0-12 Units, SubCUTAneous, TID WC, 2 Units at 01/14/25 1201 AND Insulin Lispro (Humalog) injection 0-12 Units, 0-12 Units, SubCUTAneous, Nightly, Obinna Solo MD labetalol (Normodyne,Trandate) injection 10 mg, 10 mg, IntraVENous, q2h PRN, Obinna Solo MD levothyroxine (Synthroid, Levoxyl) tablet 112 mcg, 112 mcg, Oral, Daily, Clovis Cardona MD, 112 mcg at 01/14/25 1133 methocarbamol (Robaxin) tablet 500 mg, 500 mg, Oral, 3 times per day, Elke Shepherd, FIRE CONTROL MECHANIC - TRAUMA COORDINATOR mupirocin (Bactroban) 2 % ointment 1 Application, 1 Application, Nasal, BID, Obinna Solo MD, 1 Application at 01/14/25 1032 naloxone (Narcan) injection 0.4 mg, 0.4 mg, IntraVENous, q5 min PRN, Skinny Carey MD ondansetron ODT (Zofran-ODT) disintegrating tablet 4 mg, 4 mg, Oral, q8h PRN OR ondansetron (Zofran) injection 4 mg, 4 mg, IntraVENous, q6h PRN, Obinna Solo MD, 4 mg at 01/14/25 1239 oxyCODONE (Roxicodone) immediate release tablet 5 mg, 5 mg, Oral, q4h PRN, 5 mg at 01/14/25 1042 OR oxyCODONE (Roxicodone) immediate release tablet 10 mg, 10 mg, Oral, q4h PRN, Clovis Cardona MD polyethylene glycol (PEG) 3350 (Miralax) packet 17 g, 17 g, Oral, Daily, Obinna Solo MD rosuvastatin (Crestor) tablet 10 mg, 10 mg, Oral, Daily, Clovis Cardona MD, 10 mg at 01/14/25 1042 sennosides (Senokot) tablet 8.6 mg, 1 tablet, Oral, Nightly, Simba Samayoa MD [3] Past Medical History: Diagnosis Date Cancer (CMS/HCC) (HCC) Delayed emergence from general anesthesia Diabetes mellitus (HCC) Disease of thyroid gland [4] Past Surgical History: Procedure Laterality Date APPENDECTOMY 1963 BACK SURGERY 1988 COLON SURGERY 1993 EYE SURGERY 2024 HYSTERECTOMY 2010 JOINT REPLACEMENT Left 2019 MASTECTOMY 1985 [5] No family history on file. Associated Order(s): IP CONSULT TO ORTHOPAEDIC SURGERY Images from the original note were not included. Ortho Spine Consult Patient: Marjorie Graham Date of : 1950 Acct: [id number] PCP: No primary care provider on file. Date of Admission: 01/13/2025 Date of Service: Pt seen/examined on 01/13/2025 Chief Complaint: Neck pain s/p GLF History Of Present Illness: 74 y.o. female who presents with neck pain after fall from standing. She is a transfer from [facility]. Patient endorses head trauma but denies loss of consciousness. She denies pain to any other extremities. She denies any numbness or tingling to her extremities. She denies bowel or bladder incontinence. Denies any saddle anesthesia. She states that following her fall, she was able to walk and clean herself up. She denies having any weakness in her extremities. Pertinent PMH and orthopaedic surgical history include: Lumbar discectomy 20+ years ago at outside hospital without any complications; bilateral total knee arthroplasties by Dr. Guerrero Tobacco/alcohol/illicit substances: Denies substance abuse Social: Lives at home and is quite active (was tending to her lawn/garden today) Patient ambulation status: no difficulty. Antiplatelets/Anticoagulation includes: none. Hx from chart and/or Pt. Past Medical History: Medical History[1] Past Surgical History: Recent Surgeries in Orthopedic Surgery No cases to display Home Medications: Prior to Admission medications Not on File Current Hospital Medications: Current Medications[2] Allergies: Patient has no allergy information on record. Social History: Social History Socioeconomic History Marital status: Spouse name: Not on file Number of children: Not on file Years of education: Not on file Highest education level: Not on file Occupational History Not on file Tobacco Use Smoking status: Not on file Smokeless tobacco: Not on file Substance and Sexual Activity Alcohol use: Not on file Drug use: Not on file Sexual activity: Not on file Other Topics Concern Not on file Social History Narrative Not on file Social Drivers of Health Financial Resource Strain: Low Risk (09/20/2024) Received from [facility] Overall Financial Resource Strain (CARDIA) Difficulty of Paying Living Expenses: Not hard at all Food Insecurity: No Food Insecurity (09/20/2024) Received from [facility] Hunger Vital Sign Worried About Running Out of Food in the Last Year: Never true Ran Out of Food in the Last Year: Never true Transportation Needs: Patient Declined (09/20/2024) Received from [facility] PRAPARE - Transportation Lack of Transportation (Medical): Patient declined Lack of Transportation (Non-Medical): Patient declined Physical Activity: Sufficiently Active (09/20/2024) Received from [facility] Exercise Vital Sign Days of Exercise per Week: 4 days Minutes of Exercise per Session: 50 min Stress: Stress Concern Present (09/20/2024) Received from [facility] [employer] [place] [employer] [facility] [employer] [facility] - Occupational Stress Questionnaire Feeling of Stress : Rather much Social Connections: Socially Integrated (09/20/2024) Received from [facility] Social Connection and Isolation Panel [NHANES] Frequency of Communication with Friends and Family: More than three times a week Frequency of Social Gatherings with Friends and Family: More than three times a week Attends [employer] Services: More than 4 times per year Active Member of Clubs or Organizations: Yes Attends Club or Organization Meetings: More than 4 times per year Marital Status: Intimate Partner Violence: Not on file Housing Stability: Low Risk (11/14/2019) Received from [facility] Housing Stability Vital Sign Unable to Pay for Housing in the Last Year: No Number of Places Lived in the Last Year: 1 Unstable Housing in the Last Year: No Family History: Family History[3] Further Family History is noncontributory to this injury. REVIEW OF SYSTEMS: Review of Systems - General ROS: negative for - chills, fatigue, fever, malaise or night sweats Psychological ROS: negative Ophthalmic ROS: negative ENT ROS: negative for - headaches or sore throat Hematological and Lymphatic ROS: negative for - bleeding problems or blood clots Respiratory ROS: no cough, shortness of breath, or wheezing Cardiovascular ROS: no chest pain or dyspnea on exertion Gastrointestinal ROS: negative Musculoskeletal ROS: See HPI Neurological ROS: See HPI All other systems reviewed and are negative PHYSICAL EXAM: BP 114/86 (BP Location: Right arm, Patient Position: Lying) Pulse 88 Temp 36.8 C (98.3 F) (Temporal) Resp 15 Ht 1.6 m (5' 3) Wt 80.8 kg (178 lb 2.1 oz) SpO2 95% BMI 31.55 kg/m GENERAL APPEARANCE: Awake and oriented x3. No acute distress, except appropriate to injury. MOOD AND AFFECT: Appropriate to situation GAIT AND STATION: Patient is in bed and able to ambulate COORDINATION and BALANCE: Patient is grossly coordinated able to ambulate Spine Exam: * Exam was limited due to pain: No Direct Spine Inspection: TTP was present in cervical spine SA EF WE EE WF GS HI RUE 5 5 5 5 5 5 5 Sensation: Intact C3-T1 with normal sensation in all distributions Radial pulse: Palpable TTP in the following areas: nontender throughout extremity. Nontender throughout remainder of extremity SA EF WE EE WF GS HI LUE 5 5 5 5 5 5 5 Sensation: Intact C3-T1 with normal sensation in all distributions Radial pulse: Palpable TTP in the following areas: nontender throughout extremity. Nontender throughout remainder of extremity HF KE DF EHL PF RLE 5 5 5 5 5 Sensation: Intact L2-S1 with normal sensation Pulses: DP Palpable TTP in the following areas: Nontender throughout extremity. Nontender throughout remainder of extremity Pain w Straight leg raise: No HF KE DF EHL PF LLE 5 5 5 5 5 Sensation: Intact L2-S1 with normal sensation Pulses: DP Palpable TTP in the following areas: Nontender throughout extremity. Nontender throughout remainder of extremity Pain w Straight leg raise: No Deep Tendon Reflexes: Right Bicep: 2+ Left Bicep: 2+ Right Brachioradialis: 1+ Left Brachioradialis: 1+ Huitron: absent Right Knee: 1+ Left Knee: 1+ Right Ankle: 1+ Left Ankle: 1+ Right Ankle Clonus: absent Left Ankle Clonus: absent Babinski: downgoing Rectal Exam: Deferred secondary lack of bowel bladder incontinence Labs: No results for input(s): WBC, HGB, HCT, PLT in the last 72 hours. No results for input(s): NA, K, CL, CO2, BUN, CREATININE, CALCIUM, PHOS in the last 72 hours. No lab exists for component: MAGNES No results for input(s): INR in the last 72 hours. No results for input(s): SEDRATE, CRP in the last 72 hours. No results for input(s): HCG in the last 72 hours. The above labs were reviewed by me. Radiology: The following images were independently reviewed and interpreted. Cervical CT: Date of exam: 01/13/25 Findings: There is diffuse spondylosis throughout the cervical spine and facet arthropathy at multiple levels. There is maintenance of normal cervical lordosis with preservation of body heights and morphology. Grade 1 C6 on C7 anterior listhesis. vertebral disc spaces demonstrate decreased height. Vertebral canal and intervertebral foramina appear patent. Facet joints are congruent, with no evidence of dislocation or subluxation. The atlantooccipital and atlantoaxial joints are congruent. There is a nondisplaced type II odontoid fracture and nondisplaced C1 anterior arch fracture. Radiology report reviewed. ASSESSMENT: 74 y.o. female with T2 odontoid and C1 anterior arch fx PLAN: -No acute surgical intervention. Patient placed in [place] collar. She should remain in the collar until her follow-up appointment with Dr. Brothers. Collar can be removed for hygiene -WBAT -Activity as tolerated -Neurovascular checks -Skin checks -Follow-up outpatient w Dr. Brothers -Dispo per ED/primary team -Orthopaedic surgery will sign off. Please page air transport professionals orthopaedic resident for questions or concerns. Mercy Russo MD Orthopaedic Surgery PGY2 [1] No past medical history on file. [2] No current facility-administered medications for this encounter. [3] No family history on file. Cosigned by Vitaly Brothers MD at 01/14/2025 6:12 AM EDT documented in this encounter [facility] 01-14-2025 Consult note Associated Order (s): IP CONSULT TO PALLIATIVE CARE Images from the original note were not included. Palliative Care Initial Consult Chief Complaint: Marjorie Graham is a 74 y.o. female with chief complaint of fall Palliative Care is actively following. Full consult attempted. Discharge order now in place. Marjorie Graham is a 74 y.o. female with PMH cancer, HLP, hypothyroidism, HTN, asthma, fibromyalgia, DM 2. Follows with OP ophtho d/t sinus surgery in April, woke up with diplopia, had to get ELENA myectomy. She takes bupropion for fibromyalgia. Pt had mechanical fall, tripped over garden hose, hit face. Transferred to [facility] from [facility] for C1-C2 fracture and nasal bridge fracture. Pt being DC to home, in process of getting dressed to leave. She has no unaddressed questions or concerns about her care. Explained reason for Palliative care trigger consult. She has passed speech evaluation, has appropriate follow-up, GOC established and no uncontrolled symptoms. No need for OP follow-up. Linda Yeager MD [facility] Work Phone: 01-14-2025 Consult note Associated Order (s): IP CONSULT TO GERIATRICS [facility] Consult Service Admission Date: 01/13/2025 Admission Status: INPATIENT Chief Complaint: neck pain Reason for Appointment Geriatrics consulted for paris fall Assessment & Plan Principal Problem: Acute traumatic injury of cervical spine (HCC) Active Problems: Closed nondisplaced fracture of first cervical vertebra (HCC) C2 cervical fracture (HCC) Closed fracture of nasal septum Nasal laceration Acute pain due to trauma Fall -Multiple risk factors including decreased vision, diabetes, and possible medication side effect -Continue PT/OT as able while inpatient -Vitamin D pending -Check orthostatic vital signs as able -Medications with associated fall risk include: losartan-hydrochlorothiazide, jardiance (hypoglycemia) -History of diplopia following sinus surgery in April. Continue to follow with Dr Buckner outpatient (ophthalmology surgery). Patient has prism lens and planning for updated prescription in January -Continue fall precautions C1 Ring Fracture, Non-Displaced type II fracture of odontoid -Management per orthospine-recommend no acute surgical intervention. [place] collar in place Non-displaced nasal bridge fracture, avulsion to tip of alveolar spine -Laceration to nasal bridge repaired -referral to plastic surgery outpatient Acute pain due to trauma --Recommend scheduled acetaminophen 1g TID with PRN oxycodone (2.5 mg - 5 mg) PRN for breakthrough No results found for: ALT, AST, GGT, ALKPHOS, BILITOT --Monitor for mental status change with scheduled robaxin -Optimize nonpharmacologic pain treatment modalities. -continue scheduled bowel regimen while on narcotics Debility --Related to acute injury, diplopia, fibromyalgia --At baseline patient independent of ADLs and IADLs --Await PT/OT eval --Anticipate d/c to home with home care level of PT/OT Fibromyalgia '-Continue home prescribed bupropion 300 mg daily At Risk for Delirium -Risk factors include: pain, head injury, age, ICU environment -Delirium Protocol -Recommend Melatonin nightly PRN insomnia -Avoid sedating/anticholinergic medications -Encourage family visits -Encourage sleep hygiene -Minimize barriers to nutrition -Optimize sensory input and access to assistive devices where indicated -Encourage time up in chair - including at meals - as able -Unless contraindicated, encourage regular ambulation with assistance -D/c Roberts, restraints, IV lines, as able I spent total time of 60 minutes face to face with the patient and/or family discussing the diagnosis and importance of compliance with the treatment plan as well as documenting on the day of the visit. In addition, that total time includes the following: -Reviewing previous notes, -Reviewing labs, -Obtaining and/or reviewing separately obtained history, -Communicating results to the patient/family/caregiver, -Counseling/educating the patient/family/caregiver, -Documenting clinical information in the patients electronic record, and -Performing a medically appropriate exam and/or evaluation Subjective: HPI 74 y.o. year-old female with PMH of diabetes mellitus, fibromyalgia, hypothyroid presented as a direct admission on 01/13/25 (transferred from [facility]) after a mechanical fall at home with head injury. Patient tripped over garden hose and found to have C1 fracture, nondisplaced type II fracture of odontoid. Admitted for orthospine evaluation. Per review of the chart, H&P, and multiple progress notes -CT head with no intracranial abnormality -CT maxillofacial with nondisplaced nasal bridge fracture, avulsion at the tip of the alveolar spine -Evaluated by orthospine with no acute surgical intervention indicated. Plan to remain in [place] collar until outpatient follow up appointment. Recommend WBAT -Laceration of the nasal bridge repaired -Recent labs reviewed with BMP unremarkable, vitamin B12 335, CBC unremarkable, TSH 1.86, ethanol <10 Geriatrics ED screen: Quick Cognitive Screen (QCS): Nursing Delirium Screen (Nu-Desc): Conversation with patient: -Patient reports she was outside and tripped over her garden hose hitting her face on the ground. Reports she has had double vision in her left eye since April after a sinus surgery procedure. Reports she sees double when looking to the side. 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 Doing well on myrbetriq Sleep (including use of medications/OTC for sleep): Denies Alcohol/drugs: Occasional alcohol use Mood: OK Memory: Good, may forget what she wants to grab when entering a room on occasion Numbness: Denies Vision: Diplopia since sinus surgery in April. 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 -She has had double vision. Working to strengthen her eye muscles. Planning for prescription change in prism lens end of January. Concern for depth perception. Assists her in unfamiliar areas however she tripped in the yard. -She fell in the stair well and two other minor falls in the past 5 years -She is not using an assistive device at baseline -She has had an increase in energy in the past few months -Working to get a walker for her at discharge. Plan to return home on discharge -No cognitive concerns at baseline. Advance Care Planning Healthcare Power of Health Services Director: Yes, Financial Power of Health Services Director: Yes, Living Will:Yes Code Status: Full Code Allergies[1] Current Medications[2] Medical History[3] Surgical History[4] Social History Tobacco Use Smoking status: Never Passive exposure: Past Smokeless tobacco: Never Substance Use Topics Alcohol use: Yes Alcohol/week: 1.0 standard drink of alcohol Types: 1 Cans of beer per week Comment: rare Social History Social History Narrative Not on file Family History Family History[5] No family status information on file. Parents are Review of Systems Constitutional: Negative for activity change, appetite change and fatigue. HENT: Positive for facial swelling and sinus pressure. Negative for sore throat and trouble swallowing. Eyes: Positive for visual disturbance (diplopia prior to admission). Respiratory: Negative for cough and shortness of breath. Cardiovascular: Negative for chest pain and leg swelling. Gastrointestinal: Negative for abdominal pain and constipation. Genitourinary: Negative for difficulty urinating. Musculoskeletal: Positive for arthralgias and neck pain. Skin: Positive for color change and wound (laceration repaired to nose). Neurological: Positive for weakness. Negative for dizziness, light-headedness and headaches. Psychiatric/Behavioral: Negative for confusion, dysphoric mood and sleep disturbance. The patient is not nervous/anxious. Functional Status Prior to Admission: (I: Independent, A: Assisted, D: Dependent) ADLs I A D Notes Bathing [x] [] [] Dressing [x] [] [] Toileting [x] [] [] Transfers [x] [] [] Feeding [x] [] [] Ambulation [x] [] [] Assistive devices: none IADLs I A D Telephone [x] [] [] Transportation [x] [] [] No reported accidents, tickets, car damage Shopping [x] [] [] Meal prep [x] [] [] Housework [x] [] [] Medications [x] [] [] Sets up own pillbox Finances [x] [] [] Objective: BP 130/75 Pulse 64 Temp 36.8 C (98.2 F) (Temporal) Resp 16 Ht 5' 2.99 (1.6 m) Wt 178 lb 2.1 oz (80.8 kg) SpO2 94% BMI 31.56 kg/m Intake/Output Summary (Last 24 hours) at 01/14/2025 1316 Last data filed at 01/14/2025 0611 Gross per 24 hour Intake 665 ml Output 900 ml Net -235 ml Wt Readings from Last 3 Encounters: 01/13/25 178 lb 2.1 oz (80.8 kg) Physical Exam Vitals and nursing note reviewed. Constitutional: General: She is not in acute distress. Appearance: She is not ill-appearing. Comments: Patient in sitting in bed. HENT: Head: Normocephalic and atraumatic. Right Ear: External ear normal. Left Ear: External ear normal. Nose: Signs of injury, laceration and congestion present. Mouth/Throat: Mouth: Mucous membranes are moist. Pharynx: Oropharynx is clear. Eyes: General: Right eye: No discharge. Left eye: No discharge. Extraocular Movements: Extraocular movements intact. Conjunctiva/sclera: Conjunctivae normal. Pupils: Pupils are equal, round, and reactive to light. Comments: Bilateral periorbital edema and ecchymosis Neck: Comments: [place] collar in place Cardiovascular: Rate and Rhythm: Normal rate and regular rhythm. Pulses: Normal pulses. Pulmonary: Effort: Pulmonary effort is normal. No respiratory distress. Breath sounds: Normal breath sounds. Abdominal: General: Bowel sounds are normal. There is no distension. Palpations: Abdomen is soft. Tenderness: There is no abdominal tenderness. Musculoskeletal: Right lower leg: No edema. Left lower leg: Edema present. Skin: General: Skin is warm and dry. Findings: Bruising and laceration (repaired to nose) present. Neurological: Mental Status: She is alert and oriented to person, place, and time. Cranial Nerves: No cranial nerve deficit. Sensory: Sensation is intact. Motor: No weakness. Psychiatric: Attention and Perception: Attention normal. Mood and Affect: Mood normal. Speech: Speech normal. Behavior: Behavior is cooperative. Mini-Mental Status Exam: Deferred Labs and Imaging: Recent Results (from the past 24 hours) ECG 12 lead Collection Time: 01/13/25 11:58 PM Result Value Ref Range Heart Rate 69 bpm QRSD Interval 98 ms QT Interval 420 ms QTC Interval 451 ms P Deer 27 degrees QRS Deer -39 degrees T [place] 47 degrees FL Interval 174 ms POCT glucose meter Collection Time: 01/14/25 12:17 AM Result Value Ref Range Glucose 141 (H) 70 - 100 mg/dL CBC Collection Time: 01/14/25 3:33 AM Result Value Ref Range Auto WBC 8.8 3.6 - 10.7 10*3/uL RBC 4.70 3.80 - 5.20 10*6/uL Hemoglobin 13.2 11.7 - 16.0 g/dL Hematocrit 40.6 35.0 - 47.0 % MCV 86.4 77.0 - 99.0 fL MCH 28.1 26.0 - 34.0 pg MCHC 32.5 30.5 - 36.0 % RDW 12.9 11.5 - 15.0 % Platelets 238 140 - 440 10*3/uL MPV 9.9 9.0 - 12.7 fL Basic metabolic panel Collection Time: 01/14/25 3:33 AM Result Value Ref Range SODIUM 138 136 - 145 mmol/L POTASSIUM 4.0 3.5 - 5.1 mmol/L CHLORIDE 104 98 - 107 mmol/L CARBON DIOXIDE 28 23 - 31 mmol/L UREA NITROGEN 21 9 - 23 mg/dL CREATININE 0.76 0.57 - 1.11 mg/dL GLUCOSE 153 (H) 82 - 115 mg/dL CALCIUM 9.2 8.8 - 10.0 mg/dL ANION GAP 6 3 - 13 mmol/L eGFR 81.3 >60.0 mL/min/1.73m*2 Ethanol Collection Time: 01/14/25 3:33 AM Result Value Ref Range ETHANOL IN SER/PLAS <10 <10 mg/dL TSH Collection Time: 01/14/25 3:33 AM Result Value Ref Range THYROID STIMULATING HORMONE 1.86 0.35 - 4.94 uIU/mL Vitamin B12 Collection Time: 01/14/25 3:33 AM Result Value Ref Range VITAMIN B12 335 213 - 816 pg/mL Hemoglobin A1c Collection Time: 01/14/25 3:33 AM Result Value Ref Range HEMOGLOBIN A1C 8.0 (H) <5.7 %HbA1C ESTIMATED AVERAGE GLUCOSE 183 mg/dL POCT glucose meter Collection Time: 01/14/25 10:31 AM Result Value Ref Range Glucose 146 (H) 70 - 100 mg/dL POCT glucose meter Collection Time: 01/14/25 11:56 AM Result Value Ref Range Glucose 153 (H) 70 - 100 mg/dL Lab Results Component Value Date TSH 1.86 01/14/2025 No components found for: B12 No results found for: VITD25 Reviewed: active problem list, medication list, allergies, family history, social history, health maintenance, notes from last encounter, notes from last several encounters, lab results, imaging Follow-up: will sign off, please call if questions Patria Cosme, FIRE CONTROL MECHANIC - TRAUMA COORDINATOR 01/14/25 1:16 PM [1] Allergies Allergen Reactions Levothyroxine Xvhoonym-Curiimwbn-Uaejxeeh Swelling Pcn [Penicillins] Hives Sulfa Antibiotics Hives Ciprofloxacin Rash [2] Current Facility-Administered Medications: acetaminophen (Tylenol) tablet 1,000 mg, 1,000 mg, Oral, 3 times per day, Clovis Cardona MD albuterol (2.5 MG/3ML) 0.083% nebulizer solution 2.5 mg, 2.5 mg, Nebulization, q2h PRN, Obinna Solo MD bacitracin ointment, , Topical, TID, Obinna Solo MD, Given at 01/14/25 1033 buPROPion XL (Wellbutrin XL) 24 hr tablet 300 mg, 300 mg, Oral, Daily, Clovis Cardona MD, 300 mg at 01/14/25 1133 celecoxib (CeleBREX) capsule 200 mg, 200 mg, Oral, Daily PRN, Clovis Cardona MD dextrose 5 % infusion, 100 mL/hr, IntraVENous, PRN, Obinna Solo MD dextrose 50 % solution 12.5 g, 12.5 g, IntraVENous, PRN, Obinna Solo MD dicyclomine (Bentyl) capsule 10 mg, 10 mg, Oral, q6h PRN, Clovis Cardona MD glucagon (human recombinant) injection 1 mg, 1 mg, IntraMUSCular, PRN, Obinna Solo MD glucose oral gel 15 g, 15 g, Oral, PRN, Obinna Solo MD hydrALAZINE (Apresoline) injection 10 mg, 10 mg, IntraVENous, q2h PRN, Obinna Solo MD losartan (Cozaar) tablet 100 mg, 100 mg, Oral, Daily, 100 mg at 01/14/25 1042 AND hydroCHLOROthiazide (HYDRODiuril) tablet 25 mg, 25 mg, Oral, Daily, Clovis Cardona MD, 25 mg at 01/14/25 1133 [DISCONTINUED] HYDROmorphone (Dilaudid) injection 0.25 mg, 0.25 mg, IntraVENous, q3h PRN, 0.25 mg at 01/14/25 0327 OR HYDROmorphone (Dilaudid) injection 0.5 mg, 0.5 mg, IntraVENous, q3h PRN, Clovis Cardona MD Insulin Lispro (Humalog) injection 0-12 Units, 0-12 Units, SubCUTAneous, TID WC, 2 Units at 01/14/25 1201 AND Insulin Lispro (Humalog) injection 0-12 Units, 0-12 Units, SubCUTAneous, Nightly, Obinna Solo MD labetalol (Normodyne,Trandate) injection 10 mg, 10 mg, IntraVENous, q2h PRN, Obinna Solo MD levothyroxine (Synthroid, Levoxyl) tablet 112 mcg, 112 mcg, Oral, Daily, Clovis Cardona MD, 112 mcg at 01/14/25 1133 methocarbamol (Robaxin) tablet 500 mg, 500 mg, Oral, 3 times per day, Elke Shepherd APRN - TRAUMA COORDINATOR mupirocin (Bactroban) 2 % ointment 1 Application, 1 Application, Nasal, BID, Obinna Solo MD, 1 Application at 01/14/25 1032 naloxone (Narcan) injection 0.4 mg, 0.4 mg, IntraVENous, q5 min PRN, Skinny Carey MD ondansetron ODT (Zofran-ODT) disintegrating tablet 4 mg, 4 mg, Oral, q8h PRN OR ondansetron (Zofran) injection 4 mg, 4 mg, IntraVENous, q6h PRN, Obinna Solo MD, 4 mg at 01/14/25 1239 oxyCODONE (Roxicodone) immediate release tablet 5 mg, 5 mg, Oral, q4h PRN, 5 mg at 01/14/25 1042 OR oxyCODONE (Roxicodone) immediate release tablet 10 mg, 10 mg, Oral, q4h PRN, Clovis Cardona MD polyethylene glycol (PEG) 3350 (Miralax) packet 17 g, 17 g, Oral, Daily, Obinna Solo MD rosuvastatin (Crestor) tablet 10 mg, 10 mg, Oral, Daily, Clovis Cardona MD, 10 mg at 01/14/25 1042 sennosides (Senokot) tablet 8.6 mg, 1 tablet, Oral, Nightly, Simba Samayoa MD [3] Past Medical History: Diagnosis Date Cancer (CMS/HCC) (HCC) Delayed emergence from general anesthesia Diabetes mellitus (HCC) Disease of thyroid gland [4] Past Surgical History: Procedure Laterality Date APPENDECTOMY 1963 BACK SURGERY 1988 COLON SURGERY 1993 EYE SURGERY 2024 HYSTERECTOMY 2010 JOINT REPLACEMENT Left 2019 MASTECTOMY 1985 [5] No family history on file. [facility] Work Phone: 01-14-2025 Note Problem: Musculoskel etal - Adult Goal: Return mobility to safest level of function Outcome: Progressing Goal: Maintain proper alignment of affected body part Outcome: Progressing Goal: Return ADL status to a safe level of function Outcome: Progressing [facility] 01-14-2025 Plan of care note Problem: Musculoskeletal - Adult Goal: Return mobility to safest level of function Outcome: Progressing Goal: Maintain proper alignment of affected body part Outcome: Progressing Goal: Return ADL status to a safe level of function Outcome: Progressing [facility] 01-13-2025 History and physical note Please see full details from the history and physical exam in the resident's / nurse practitioner's note ~~~~~~~~~~~~~~~~~~~~~~~~~~~~~~~~~~ ~~~~~~~~~~~~~~~~~~~~~~~~~ Attending physician addendum: I independently saw and evaluated the patient. I personally obtained the fall and critical portion of the history and physical exam. I reviewed and agree with the documentation below. I personally reviewed patient's labs and imaging studies. My findings agree with the below note except for any details corrected. A complete review of systems was obtained and is negative except as stated in HPI. I have examined the patient at the date below. Problem List[1] I have evaluated the patient at 19:50, shortly following her presentation as a direct TICU admission from [facility] Per Dr Solo's note. I have evaluated the patient on 01/13/25 HPI: 74 y.o. female sustained a mechanical (tripped) ground level fall, + hit head, no LOC. 01/13 CT head - no evidence of intracranial abnormality 01/13 CT C-spine - - C1 ring fracture in the anterior aspect, non displaced type II fracture of odontoid 01/13 - CT maxillofacial - non displaced nasal bridge fracture , avulsion at the tip fo the alveolar spine Chief complain: neck pain Problem list: -C1 vertebral body fraccture -C2 dens fracture -Nose fracture -Face laceration garrison 1.5 cm -Acute traumatic pain -DM -GERD -HLD -Essential HTN -Hypothyroidism -Obesity class I Procedures: 01/13 - primary repair of nose laceration Home medications: Bupropion Levothyroxine Losartan Metformin Jardiance Omeprazole Rosuvastatin Myrbetriq Management / Plan : Check CTA neck Place [place] collar Q2h neuro checks Consult ortho spine Multimodal pain control Consult Geriatric Medicine Consult Palliative care Primary repair of nasal laceration Refer to Plastic surgery as outpatient Start PRN Labetalol and Hydralazin - goal SBP< 160 mmHg Pulmonary toilet Check CXR Keep NPO AIR VALVE REPAIRER evaluation Start LR@ 75 Check CBC and BMP Start q6h BS check with ISS Start IV Protonix 40 mg Hold checmo DVT prophylaxis, SCDs only PIVs Check Right hand XRs Neuro checks and cardiopulmonary monitoring in TICU Level of Medical Decision Making: risk of morbidity from additional diagnostic testing or treatment due to cervical spine fractures []High [x]Moderate []Low Personally Reviewed/Independently interpreted patient's: [x]Epic notes [x]Radiology studies [x]Labs []EKG []Ordering tests []Other Discussed/ With: [x]Patient/Family [x]RN []Consultants []SW/TCC []Other I spent total time of >= 55 minutes reviewing previous notes, test results, and face to face with Marjorie Graham discussing the diagnosis and importance of compliance with the treatment plan as well as documenting on the day of the visit. Time was spent, Reviewing medical record including recent tests and results Ordering prescription medications/tests and procedures Communicating results to the patient/family/caregiver Counseling/educating the patient/family/caregiver Documenting clinical information the patient's electronic record Coordination of care for the patient Performing a medical appropriate exam and evaluation Viral Carey MD FACS Trauma, Surgical Critical Care, & General Surgery Division of Trauma Department of Surgery [facility] P [1] There is no problem list on file for this patient. [facility] 01-13-2025 Note Please see full deta ils from the history and physical exam in the resident's / nurse practitioner's note ~~~~~~~~~~~~~~~~~~~~~~~~~~~~~~~~~~ ~~~~~~~~~~~~~~~~~~~~~~~~~ Attending physician addendum: I independently saw and evaluated the patient. I personally obtained the fall and critical portion of the history and physical exam. I reviewed and agree with the documentation below. I personally reviewed patient's labs and imaging studies. My findings agree with the below note except for any details corrected. A complete review of systems was obtained and is negative except as stated in HPI. I have examined the patient at the date below. Problem List[1] I have evaluated the patient at 19:50, shortly following her presentation as a direct TICU admission from [facility] Per Dr Solo's note. I have evaluated the patient on 01/13/25 HPI: 74 y.o. female sustained a mechanical (tripped) ground level fall, + hit head, no LOC. 01/13 CT head - no evidence of intracranial abnormality 01/13 CT C-spine - - C1 ring fracture in the anterior aspect, non displaced type II fracture of odontoid 01/13 - CT maxillofacial - non displaced nasal bridge fracture , avulsion at the tip fo the alveolar spine Chief complain: neck pain Problem list: -C1 vertebral body fraccture -C2 dens fracture -Nose fracture -Face laceration garrison 1.5 cm -Acute traumatic pain -DM -GERD -HLD -Essential HTN -Hypothyroidism -Obesity class I Procedures: 01/13 - primary repair of nose laceration Home medications: Bupropion Levothyroxine Losartan Metformin Jardiance Omeprazole Rosuvastatin Myrbetriq Management / Plan : Check CTA neck Place [place] collar Q2h neuro checks Consult ortho spine Multimodal pain control Consult Geriatric Medicine Consult Palliative care Primary repair of nasal laceration Refer to Plastic surgery as outpatient Start PRN Labetalol and Hydralazin - goal SBP< 160 mmHg Pulmonary toilet Check CXR Keep NPO AIR VALVE REPAIRER evaluation Start LR@ 75 Check CBC and BMP Start q6h BS check with ISS Start IV Protonix 40 mg Hold checmo DVT prophylaxis, SCDs only PIVs Check Right hand XRs Neuro checks and cardiopulmonary monitoring in TICU Level of Medical Decision Making: risk of morbidity from additional diagnostic testing or treatment due to cervical spine fractures []High [x]Moderate []Low Personally Reviewed/Independently interpreted patient's: [x]Epic notes [x]Radiology studies [x]Labs []EKG []Ordering tests []Other Discussed/ With: [x]Patient/Family [x]RN []Consultants []SW/TCC []Other I spent total time of >= 55 minutes reviewing previous notes, test results, and face to face with Marjorie Graham discussing the diagnosis and importance of compliance with the treatment plan as well as documenting on the day of the visit. Time was spent, Reviewing medical record including recent tests and results Ordering prescription medications/tests and procedures Communicating results to the patient/family/caregiver Counseling/educating the patient/family/caregiver Documenting clinical information the patient's electronic record Coordination of care for the patient Performing a medical appropriate exam and evaluation Viral Carey MD FACS Trauma, Surgical Critical Care, & General Surgery Division of Trauma Department of Surgery [facility] P [1] There is no problem list on file for this patient. [facility] 01-13-2025 History and physical note Please see full details from the history and physical exam in the resident's / nurse practitioner's note ~~~~~~~~~~~~~~~~~~~~~~~~~~~~~~~~~~ ~~~~~~~~~~~~~~~~~~~~~~~~~ Attending physician addendum: I independently saw and evaluated the patient. I personally obtained the fall and critical portion of the history and physical exam. I reviewed and agree with the documentation below. I personally reviewed patient's labs and imaging studies. My findings agree with the below note except for any details corrected. A complete review of systems was obtained and is negative except as stated in HPI. I have examined the patient at the date below. Problem List[1] I have evaluated the patient at 19:50, shortly following her presentation as a direct TICU admission from [facility] Per Dr Solo's note. I have evaluated the patient on 01/13/25 HPI: 74 y.o. female sustained a mechanical (tripped) ground level fall, + hit head, no LOC. 01/13 CT head - no evidence of intracranial abnormality 01/13 CT C-spine - - C1 ring fracture in the anterior aspect, non displaced type II fracture of odontoid 01/13 - CT maxillofacial - non displaced nasal bridge fracture , avulsion at the tip fo the alveolar spine Chief complain: neck pain Problem list: -C1 vertebral body fraccture -C2 dens fracture -Nose fracture -Face laceration garrison 1.5 cm -Acute traumatic pain -DM -GERD -HLD -Essential HTN -Hypothyroidism -Obesity class I Procedures: 01/13 - primary repair of nose laceration Home medications: Bupropion Levothyroxine Losartan Metformin Jardiance Omeprazole Rosuvastatin Myrbetriq Management / Plan : Check CTA neck Place [place] collar Q2h neuro checks Consult ortho spine Multimodal pain control Consult Geriatric Medicine Consult Palliative care Primary repair of nasal laceration Refer to Plastic surgery as outpatient Start PRN Labetalol and Hydralazin - goal SBP< 160 mmHg Pulmonary toilet Check CXR Keep NPO AIR VALVE REPAIRER evaluation Start LR@ 75 Check CBC and BMP Start q6h BS check with ISS Start IV Protonix 40 mg Hold checmo DVT prophylaxis, SCDs only PIVs Check Right hand XRs Neuro checks and cardiopulmonary monitoring in TICU Level of Medical Decision Making: risk of morbidity from additional diagnostic testing or treatment due to cervical spine fractures []High [x]Moderate []Low Personally Reviewed/Independently interpreted patient's: [x]Epic notes [x]Radiology studies [x]Labs []EKG []Ordering tests []Other Discussed/ With: [x]Patient/Family [x]RN []Consultants []SW/TCC []Other I spent total time of >= 55 minutes reviewing previous notes, test results, and face to face with Marjorie Graham discussing the diagnosis and importance of compliance with the treatment plan as well as documenting on the day of the visit. Time was spent, Reviewing medical record including recent tests and results Ordering prescription medications/tests and procedures Communicating results to the patient/family/caregiver Counseling/educating the patient/family/caregiver Documenting clinical information the patient's electronic record Coordination of care for the patient Performing a medical appropriate exam and evaluation Viral Carey MD FACS Trauma, Surgical Critical Care, & General Surgery Division of Trauma Department of Surgery [facility] P [1] There is no problem list on file for this patient. Images from the original note were not included. [facility] Trauma H&P 01/13/2025 7:18 PM Trauma Attending: Dr. Carey Level of Initial Activation: [] Level 1 [] Level 2 [] Level 3 [] Trauma Evaluation [x] Direct Admit Upgraded: No To:N/A Mechanism of Injury: Fall Mechanical Mechanism of Arrival:Transfer from [facility] Chief Complaint: Fall History of Traumatic Injury: 74 y.o. female status post mechanical fall. The incident happened around 3pm on 01/13 When the event happened the patient was in her garden and tripped over a hose and hit her face. Denies loss of consciousness. She presented to [facility] and was transferred here for C1 and C2 fracture and she was placed in a c-collar. CT imaging also with nondisplaced nasal bridge fracture and fracture nasal septum and avulsion at the tip of the alveolar spine. She did not receive Tdap as it has been given in the last year. Patient pain level currently is 6/10. Did the Patient have LOC? No C-collar in place on arrival? Yes Was the patient on an antiplatelet or anticoagulant medication? No If yes, which one? NA Medical History[1] Surgical History[2] Family History[3] Who is healthcare POA or next of kin? Does the patient have a DNR? No Living Will? No Allergies[4] PRIMARY SURVEY: AIRWAY: Airway Normal EMS Airway Absent Noisy respirations Absent Vomiting/bleeding: Absent BREATHING: Spontaneous Respirations: Present Midaxillary breath sound left: Present Midaxillary breath sound right: Present CIRCULATION: Left Femoral pulse rate: Normal Left Femoral pulse intensity: Present Right Femoral pulse rate: Normal Right Femoral pulse intensity: Present INITIAL VITALS: Pulse 86 Resp 20 FAST EXAM: Performed: No Results: N/A DISABILITY: GCS Initial Eye Verbal Motor 4 - Opens eyes on own 5 - Alert and oriented 6 - Follows simple motor commands Neuromuscular blockade: No Pupil size: Left 3 mm Right 3 mm Pupil reaction: Yes Wiggles fingers: Left Yes Right Yes Wiggles toes: Left Yes Right Yes Hand grasp: Left Normal Right Normal Plantar flexion: Left Normal Right Normal Secondary Survey: SECONDARY VITALS: BP 136/70 Pulse 79 Temp 36.8 C (98.3 F) (Temporal) Resp 14 Ht 1.6 m (5' 3) Wt 80.8 kg (178 lb 2.1 oz) BMI 31.55 kg/m Review of Systems Constitutional: Negative for chills and fever. HENT: Negative for ear discharge and facial swelling. Eyes: Negative for discharge and visual disturbance. Respiratory: Negative for chest tightness and shortness of breath. Cardiovascular: Negative for chest pain and leg swelling. Gastrointestinal: Negative for abdominal distention and abdominal pain. Genitourinary: Negative for difficulty urinating and flank pain. Musculoskeletal: Negative for gait problem and joint swelling. Skin: Negative for color change and wound. Neurological: Positive for headaches. Negative for seizures and syncope. Psychiatric/Behavioral: Negative for agitation and behavioral problems. Physical Exam Vitals and nursing note reviewed. Constitutional: General: She is not in acute distress. Appearance: Normal appearance. She is not diaphoretic. HENT: 2 cm laceration superior nasal bridge Eyes: General: No scleral icterus. Right eye: No discharge. Left eye: No discharge. Neck: Comments: C-collar in place C-spine tenderness present Trachea Midline Cardiovascular: Pulses: Normal pulses. Comments: HR and BP stable, well perfused Pulmonary: Effort: Pulmonary effort is normal. No respiratory distress. Breath sounds: No stridor. Comments: Chest wall stable Chest: Chest wall: No tenderness. Abdominal: General: There is no distension. Tenderness: There is no abdominal tenderness. There is no guarding or rebound. Genitourinary: Comments: positive gluteal squeeze Musculoskeletal: General: No tenderness or deformity. Normal range of motion. Comments: T-Spine non-tender, no palpable step offs L-Spine non-tender, no palpable step offs Skin: General: Skin is warm and dry. Neurological: General: No focal deficit present. Mental Status: She is alert and oriented to person, place, and time. Psychiatric: Mood and Affect: Mood normal. Behavior: Behavior normal. CBC: No results found for: WBC, RBC, HGB, HCT, MCV, MCH, MCHC, RDW, PLT, MPV BMP: No results found for: NA, K, CL, CO2, BUN, CREATININE, CALCIUM, LABGLOM, GLUCOSE, GLU Urine Toxicology: No components found for: IAMMENTA, IBARBIT, IBENZO, ICOCAINE, IMARTHC, IOPIATES, IPHENCYC IV Access: Peripheral NG/OG: No Roberts: No Radiology: No orders to display Social History Socioeconomic History Marital status: Spouse name: Not on file Number of children: Not on file Years of education: Not on file Highest education level: Not on file Occupational History Not on file Tobacco Use Smoking status: Not on file Smokeless tobacco: Not on file Substance and Sexual Activity Alcohol use: Not on file Drug use: Not on file Sexual activity: Not on file Other Topics Concern Not on file Social History Narrative Not on file Social Drivers of Health Financial Resource Strain: Low Risk (09/20/2024) Received from [facility] Overall Financial Resource Strain (CARDIA) Difficulty of Paying Living Expenses: Not hard at all Food Insecurity: No Food Insecurity (09/20/2024) Received from [facility] Hunger Vital Sign Worried About Running Out of Food in the Last Year: Never true Ran Out of Food in the Last Year: Never true Transportation Needs: Patient Declined (09/20/2024) Received from [facility] PRAPARE - Transportation Lack of Transportation (Medical): Patient declined Lack of Transportation (Non-Medical): Patient declined Physical Activity: Sufficiently Active (09/20/2024) Received from [facility] Exercise Vital Sign Days of Exercise per Week: 4 days Minutes of Exercise per Session: 50 min Stress: Stress Concern Present (09/20/2024) Received from [facility] [employer] - Occupational Stress Questionnaire Feeling of Stress : Rather much Social Connections: Socially Integrated (09/20/2024) Received from [facility] Social Connection and Isolation Panel [NHANES] Frequency of Communication with Friends and Family: More than three times a week Frequency of Social Gatherings with Friends and Family: More than three times a week Attends U[employer] Services: More than 4 times per year Active Member of Clubs or Organizations: Yes Attends Club or Organization Meetings: More than 4 times per year Marital Status: Intimate Partner Violence: Not on file Housing Stability: Low Risk (11/14/2019) Received from [facility] Housing Stability Vital Sign Unable to Pay for Housing in the Last Year: No Number of Places Lived in the Last Year: 1 Unstable Housing in the Last Year: No Current Medications[5] ASSESSMENT: Marjorie Graham is a 74 y.o. female who presented after mechanical fall and found to have C1 and C2 fractures, nasal bone fractures, nasal septal fracture PLAN: PLAN: Neuro / Spine #C1 anterior arch and C2 odontoid fx - Appreciate ortho recs: [place] collar at all times until fu, neurovascular checks q2h. Fu outpt - Pain control: IV tylenol, IV dilaudid prn. - Elevate HOB 30 degrees - [place] and palliative cs # Depression - Hold Wellbutrin 300 mg Cardiovascular #HTN - Hemodynamically stable - Labetalol/hydralazine prn goal <160 - Telemetry -Hold home losartan-hydrochlorothiazide #HLD -Hold home rosuvastatin Pulmonary - Standard O2 protocol - IS - Duonebs PRN FEN/GI #GERD - IV protonix 40mg daily - NPO with LR 75. Speech eval - Zofran PRN - Daily BMP, CBC - No acute issues - Monitor I/Os - Goal UOP > 0.5 ml/kg/hr Endocrine #DM - Hold jardiance and metformin - Medium dose sliding scale insulin, q6h poc glucose checks #Hypothyroidism -Hold home synthroid Heme - Hgb stable - No transfusions indicated ID #[id number] decolonization - bactroban Lines/Devices: - PIV Prophylaxis: DVT: SCDs Has DVT PPX been started? No If no, why? Possible OR GI: Protonix IV 40mg daily Pressure Ulcer: Continue to monitor, Musculoskeletal: # Nasal bone fractures, fracture nasal septum - Follow-up outpatient with plastic surgery - Laceration repaired see separate procedure note All final plans discussed with air transport professionals trauma attending Orthopedics (spine) resident was notified at 1926 and responded at 1928. He evaluated imaging and the following plan was discussed: [place]pen collar, C spine X-rays Has/will a routine repeat head CT be ordered?: No If no, Why? Patient not on Pre-injury Anticoagulant or Anti-Platelet If no repeat head CT ordered, can DVT PPX be started? No If no, why? Plan for OR today.Patient is not being admitted.Repeat head ordered If DVT PPX can be started, has order been placed? No FRAIL SCALE for Patients Greater then Age 65 - All others choose N/A: F:Fatigue - Does the patient fatigue or get exhausted easily? No R:Resistance - Does the patient have trouble walking up one flight of stairs independently? No A:Ambulation - Does the patient have trouble walking one block (1/4 Mile)? No I:Illnesses - Does the patient have five or more illnesses (comorbidities)? Yes L:Loss of weight - Has the patient lost weight (5 to 10 percent) over the last 6 months to one year? No Greater then 2 Yes answers consider palliative consult. Obinna Solo MD General Surgery 01/13/25 7:18 PM Pager # [phone] This note may have been dictated using Dragon Medical Practice Edition 2.6 and/or GT Channel Voice Recognition Feature. The document was proofread; however, unrecognized voice recognition facetor errors may be present. [1] No past medical history on file. [2] No past surgical history on file. [3] No family history on file. [4] Not on File [5] No current facility-administered medications for this encounter. Cosigned by Skinny Carey MD at 01/14/2025 7:22 AM EDT Associated attestation - Skinny Carey MD - 01/14/2025 7:22 AM EDT ~~~~~~~~~~~~~~~~~~~~~~~~~~~~~~~~~~ ~~~~~~~~~~~~~~~~~~~~~~~~~ Attending physician addendum: I independently saw and evaluated the patient. I personally obtained the fall and critical portion of the history and physical exam. I reviewed and agree with the documentation below. I personally reviewed patient's labs and imaging studies. My findings agree with the below note except for any details corrected. A complete review of systems was obtained and is negative except as stated in HPI. I have examined the patient at the date below. Problem List[1] Per Dr Solo's note. I have evaluated the patient on 01/13/25 HPI: 74 y.o. female sustained a mechanical (tripped) ground level fall, + hit head, no LOC. 01/13 CT head - no evidence of intracranial abnormality 01/13 CT C-spine - - C1 ring fracture in the anterior aspect, non displaced type II fracture of odontoid 01/13 - CT maxillofacial - non displaced nasal bridge fracture , avulsion at the tip fo the alveolar spine Chief complain: neck pain Problem list: -C1 vertebral body fraccture -C2 dens fracture -Nose fracture -Face laceration garrison 1.5 cm -Acute traumatic pain -DM -GERD -HLD -Essential HTN -Hypothyroidism -Obesity class I Procedures: 01/13 - primary repair of nose laceration Home medications: Bupropion Levothyroxine Losartan Metformin Jardiance Omeprazole Rosuvastatin Myrbetriq Management / Plan : Check CTA neck Place [place] collar Q2h neuro checks Consult ortho spine Multimodal pain control Consult Geriatric Medicine Consult Palliative care Primary repair of nasal laceration Refer to Plastic surgery as outpatient Start PRN Labetalol and Hydralazin - goal SBP< 160 mmHg Pulmonary toilet Check CXR Keep NPO AIR VALVE REPAIRER evaluation Start LR@ 75 Check CBC and BMP Start q6h BS check with ISS Start IV Protonix 40 mg Hold checmo DVT prophylaxis, SCDs only PIVs Check Right hand XRs Neuro checks and cardiopulmonary monitoring in TICU Level of Medical Decision Making: risk of morbidity from additional diagnostic testing or treatment due to cervical spine fractures []High [x]Moderate []Low Personally Reviewed/Independently interpreted patient's: [x]Epic notes [x]Radiology studies [x]Labs []EKG []Ordering tests []Other Discussed/ With: [x]Patient/Family [x]RN []Consultants []SW/TCC []Other I spent total time of >= 55 minutes reviewing previous notes, test results, and face to face with Marjorie Graham discussing the diagnosis and importance of compliance with the treatment plan as well as documenting on the day of the visit. Time was spent, Reviewing medical record including recent tests and results Ordering prescription medications/tests and procedures Communicating results to the patient/family/caregiver Counseling/educating the patient/family/caregiver Documenting clinical information the patient's electronic record Coordination of care for the patient Performing a medical appropriate exam and evaluation Viral Carey MD FACS Trauma, Surgical Critical Care, & General Surgery Division of Trauma Department of Surgery [facility] P [1] Patient Active Problem List Diagnosis Acute traumatic injury of cervical spine (HCC) documented in this encounter [facility] 01-13-2025 Hospital Discharge instructions Elke Shepherd APRN - TRAUMA COORDINATOR - 01/13/2025 8:27 PM EDT Images from the original note were not included. Orthopaedic Surgery Discharge Instructions: -Weight bearing as tolerated -Activity as tolerated, except avoid heavy lifting/pulling/otherwise strenuous activity -Wear the cervical collar at all times do not take it off. Check skin around the collar for signs of skin breakdown. -Wear the cervical collar for most of the day, ok to remove for hygiene and eating. Check skin around the collar for signs of skin breakdown. -Follow-up outpatient with Dr. Brothers. The office contact information is provided in your paperwork. -IF you experience SEVERE worsening of pain in short period of time and/or significant numbness/weakness in extremities or new loss of bowel or bladder function please call the office or return to the emergency department -Take medications as prescribed by the hospital doctors Trauma Instructions: - We have prescribed narcotics to help with your pain (Oxycodone) and tylenol. Oxycodone should be taken for break through pain no more then every 6 hours, if Tylenol is not sufficient enough. - Robaxin has been prescribed, this is a muscle relaxer to help with your neck and shoulder pain. You can take this 2-3 times per day for help with pain. The goal is to have your pain tolerable as you slowly decrease the amount you take as you heal. - Continue taking stool softener, Miralax and/or, Senna, while taking oxycodone since narcotics can cause constipation. - Maintain sinus precautions: Sneeze with an open mouth No blowing nose Head of bed 30 degrees or more No bending or lifting more than 5 pounds Do not use straws - Follow up with Trauma Surgery in 2 weeks. If you cannot keep your appointment, please call to reschedule - Follow up with Orthospine, Dr. Brothers as recommended in 1 week (call for an appointment) - Follow up with Plastic Surgery, Dr. Jim PINEDA. Call for an appointment regarding your nasal bone fractures - Follow up with your Primary Care Physician, regarding your injury and elevated A1C level for possible medication adjustment regarding your diabetes in 1-2 weeks. Behavioral Health Resources for Trauma Survivors After experiencing a traumatic event, some people may find that they experience psychological distress that can impact their daily functioning and relationships. Common reactions to traumatic events include having unwanted memories or dreams of the event, feeling upset when reminded of the event, trying to avoid things that may remind you of the event, or experiencing changes in your thinking, relationships, and behaviors that negatively impact your life. There are resources, including counseling and medications, that can help you to talk about and adjust to the traumatic event and limit its impact on your life. Please consider calling one of the following behavioral health agencies for support: [facility] [address], [facility] [address] [facility] [address] [place] [address] [facility] [address], [facility] [id number] [facility] [address] [facility], [facility] [phone] Should you be out of the [facility] area, you can use this resource to locate local mental health agencies: [employer] Victim Assistance Program- provides resources and support to victims of violent crimes, offers victim advocates for those involved in legal proceedings [phone] Should you need immediate help in coping with symptoms or should you feel at risk of harming yourself or others, please use the following crisis resources: Crisis Hotline: 988 Crisis Text Helpine: Text 0TOPE to 113013 Call 911 or go to your nearest emergency department Sarah Puentes RN - 01/14/2025 5:58 AM EDT Falling is NOT a normal part of aging. If you have had a fall or have a fear of falling, please reach out for more information on Fall Prevention strategies . [email or web address] or call #906.186.7377. The following attachments cannot be sent through Care Everywhere.Neck Fracture (Ivorian)Cervical Immobilizers (Ivorian)Nose Fracture ED (Ivorian)documented in this encounter [facility] 01-13-2025 Consult note Associated Order (s): IP CONSULT TO ORTHOPAEDIC SURGERY Images from the original note were not included. Ortho Spine Consult Patient: Marjorie Graham Date of : 1950 Acct: [id number] PCP: No primary care provider on file. Date of Admission: 01/13/2025 Date of Service: Pt seen/examined on 01/13/2025 Chief Complaint: Neck pain s/p GLF History Of Present Illness: 74 y.o. female who presents with neck pain after fall from standing. She is a transfer from [facility]. Patient endorses head trauma but denies loss of consciousness. She denies pain to any other extremities. She denies any numbness or tingling to her extremities. She denies bowel or bladder incontinence. Denies any saddle anesthesia. She states that following her fall, she was able to walk and clean herself up. She denies having any weakness in her extremities. Pertinent PMH and orthopaedic surgical history include: Lumbar discectomy 20+ years ago at outside hospital without any complications; bilateral total knee arthroplasties by Dr. Guerrero Tobacco/alcohol/illicit substances: Denies substance abuse Social: Lives at home and is quite active (was tending to her lawn/garden today) Patient ambulation status: no difficulty. Antiplatelets/Anticoagulation includes: none. Hx from chart and/or Pt. Past Medical History: Medical History[1] Past Surgical History: Recent Surgeries in Orthopedic Surgery No cases to display Home Medications: Prior to Admission medications Not on File Current Hospital Medications: Current Medications[2] Allergies: Patient has no allergy information on record. Social History: Social History Socioeconomic History Marital status: Spouse name: Not on file Number of children: Not on file Years of education: Not on file Highest education level: Not on file Occupational History Not on file Tobacco Use Smoking status: Not on file Smokeless tobacco: Not on file Substance and Sexual Activity Alcohol use: Not on file Drug use: Not on file Sexual activity: Not on file Other Topics Concern Not on file Social History Narrative Not on file Social Drivers of Health Financial Resource Strain: Low Risk (09/20/2024) Received from [facility] Overall Financial Resource Strain (CARDIA) Difficulty of Paying Living Expenses: Not hard at all Food Insecurity: No Food Insecurity (09/20/2024) Received from [facility] Hunger Vital Sign Worried About Running Out of Food in the Last Year: Never true Ran Out of Food in the Last Year: Never true Transportation Needs: Patient Declined (09/20/2024) Received from [facility] PRAPARE - Transportation Lack of Transportation (Medical): Patient declined Lack of Transportation (Non-Medical): Patient declined Physical Activity: Sufficiently Active (09/20/2024) Received from [facility] Exercise Vital Sign Days of Exercise per Week: 4 days Minutes of Exercise per Session: 50 min Stress: Stress Concern Present (09/20/2024) Received from [facility] [employer] - Occupational Stress Questionnaire Feeling of Stress : Rather much Social Connections: Socially Integrated (09/20/2024) Received from [facility] Social Connection and Isolation Panel [NHANES] Frequency of Communication with Friends and Family: More than three times a week Frequency of Social Gatherings with Friends and Family: More than three times a week Attends Uats[employer] Services: More than 4 times per year Active Member of Clubs or Organizations: Yes Attends Club or Organization Meetings: More than 4 times per year Marital Status: Intimate Partner Violence: Not on file Housing Stability: Low Risk (11/14/2019) Received from [facility] Housing Stability Vital Sign Unable to Pay for Housing in the Last Year: No Number of Places Lived in the Last Year: 1 Unstable Housing in the Last Year: No Family History: Family History[3] Further Family History is noncontributory to this injury. REVIEW OF SYSTEMS: Review of Systems - General ROS: negative for - chills, fatigue, fever, malaise or night sweats Psychological ROS: negative Ophthalmic ROS: negative ENT ROS: negative for - headaches or sore throat Hematological and Lymphatic ROS: negative for - bleeding problems or blood clots Respiratory ROS: no cough, shortness of breath, or wheezing Cardiovascular ROS: no chest pain or dyspnea on exertion Gastrointestinal ROS: negative Musculoskeletal ROS: See HPI Neurological ROS: See HPI All other systems reviewed and are negative PHYSICAL EXAM: BP 114/86 (BP Location: Right arm, Patient Position: Lying) Pulse 88 Temp 36.8 C (98.3 F) (Temporal) Resp 15 Ht 1.6 m (5' 3) Wt 80.8 kg (178 lb 2.1 oz) SpO2 95% BMI 31.55 kg/m GENERAL APPEARANCE: Awake and oriented x3. No acute distress, except appropriate to injury. MOOD AND AFFECT: Appropriate to situation GAIT AND STATION: Patient is in bed and able to ambulate COORDINATION and BALANCE: Patient is grossly coordinated able to ambulate Spine Exam: * Exam was limited due to pain: No Direct Spine Inspection: TTP was present in cervical spine SA EF WE EE WF GS HI RUE 5 5 5 5 5 5 5 Sensation: Intact C3-T1 with normal sensation in all distributions Radial pulse: Palpable TTP in the following areas: nontender throughout extremity. Nontender throughout remainder of extremity SA EF WE EE WF GS HI LUE 5 5 5 5 5 5 5 Sensation: Intact C3-T1 with normal sensation in all distributions Radial pulse: Palpable TTP in the following areas: nontender throughout extremity. Nontender throughout remainder of extremity HF KE DF EHL PF RLE 5 5 5 5 5 Sensation: Intact L2-S1 with normal sensation Pulses: DP Palpable TTP in the following areas: Nontender throughout extremity. Nontender throughout remainder of extremity Pain w Straight leg raise: No HF KE DF EHL PF LLE 5 5 5 5 5 Sensation: Intact L2-S1 with normal sensation Pulses: DP Palpable TTP in the following areas: Nontender throughout extremity. Nontender throughout remainder of extremity Pain w Straight leg raise: No Deep Tendon Reflexes: Right Bicep: 2+ Left Bicep: 2+ Right Brachioradialis: 1+ Left Brachioradialis: 1+ Huitron: absent Right Knee: 1+ Left Knee: 1+ Right Ankle: 1+ Left Ankle: 1+ Right Ankle Clonus: absent Left Ankle Clonus: absent Babinski: downgoing Rectal Exam: Deferred secondary lack of bowel bladder incontinence Labs: No results for input(s): WBC, HGB, HCT, PLT in the last 72 hours. No results for input(s): NA, K, CL, CO2, BUN, CREATININE, CALCIUM, PHOS in the last 72 hours. No lab exists for component: MAGNES No results for input(s): INR in the last 72 hours. No results for input(s): SEDRATE, CRP in the last 72 hours. No results for input(s): HCG in the last 72 hours. The above labs were reviewed by me. Radiology: The following images were independently reviewed and interpreted. Cervical CT: Date of exam: 01/13/25 Findings: There is diffuse spondylosis throughout the cervical spine and facet arthropathy at multiple levels. There is maintenance of normal cervical lordosis with preservation of body heights and morphology. Grade 1 C6 on C7 anterior listhesis. vertebral disc spaces demonstrate decreased height. Vertebral canal and intervertebral foramina appear patent. Facet joints are congruent, with no evidence of dislocation or subluxation. The atlantooccipital and atlantoaxial joints are congruent. There is a nondisplaced type II odontoid fracture and nondisplaced C1 anterior arch fracture. Radiology report reviewed. ASSESSMENT: 74 y.o. female with T2 odontoid and C1 anterior arch fx PLAN: -No acute surgical intervention. Patient placed in [place] collar. She should remain in the collar until her follow-up appointment with Dr. Brothers. Collar can be removed for hygiene -WBAT -Activity as tolerated -Neurovascular checks -Skin checks -Follow-up outpatient w Dr. Brothers -Dispo per ED/primary team -Orthopaedic surgery will sign off. Please page air transport professionals orthopaedic resident for questions or concerns. Mercy Russo MD Orthopaedic Surgery PGY2 [1] No past medical history on file. [2] No current facility-administered medications for this encounter. [3] No family history on file. Cosigned by Vitaly Brothers MD at 01/14/2025 6:12 AM EDT [facility] Phone: 01-13-2025 History and physical note Images from the original note were not included. [facility] Trauma H&P 01/13/2025 7:18 PM Trauma Attending: Dr. Carey Level of Initial Activation: [] Level 1 [] Level 2 [] Level 3 [] Trauma Evaluation [x] Direct Admit Upgraded: No To:N/A Mechanism of Injury: Fall Mechanical Mechanism of Arrival:Transfer from [facility] Chief Complaint: Fall History of Traumatic Injury: 74 y.o. female status post mechanical fall. The incident happened around 3pm on 01/13 When the event happened the patient was in her garden and tripped over a hose and hit her face. Denies loss of consciousness. She presented to [facility] and was transferred here for C1 and C2 fracture and she was placed in a c-collar. CT imaging also with nondisplaced nasal bridge fracture and fracture nasal septum and avulsion at the tip of the alveolar spine. She did not receive Tdap as it has been given in the last year. Patient pain level currently is 6/10. Did the Patient have LOC? No C-collar in place on arrival? Yes Was the patient on an antiplatelet or anticoagulant medication? No If yes, which one? NA Medical History[1] Surgical History[2] Family History[3] Who is healthcare POA or next of kin? Does the patient have a DNR? No Living Will? No Allergies[4] PRIMARY SURVEY: AIRWAY: Airway Normal EMS Airway Absent Noisy respirations Absent Vomiting/bleeding: Absent BREATHING: Spontaneous Respirations: Present Midaxillary breath sound left: Present Midaxillary breath sound right: Present CIRCULATION: Left Femoral pulse rate: Normal Left Femoral pulse intensity: Present Right Femoral pulse rate: Normal Right Femoral pulse intensity: Present INITIAL VITALS: Pulse 86 Resp 20 FAST EXAM: Performed: No Results: N/A DISABILITY: GCS Initial Eye Verbal Motor 4 - Opens eyes on own 5 - Alert and oriented 6 - Follows simple motor commands Neuromuscular blockade: No Pupil size: Left 3 mm Right 3 mm Pupil reaction: Yes Wiggles fingers: Left Yes Right Yes Wiggles toes: Left Yes Right Yes Hand grasp: Left Normal Right Normal Plantar flexion: Left Normal Right Normal Secondary Survey: SECONDARY VITALS: BP 136/70 Pulse 79 Temp 36.8 C (98.3 F) (Temporal) Resp 14 Ht 1.6 m (5' 3) Wt 80.8 kg (178 lb 2.1 oz) BMI 31.55 kg/m Review of Systems Constitutional: Negative for chills and fever. HENT: Negative for ear discharge and facial swelling. Eyes: Negative for discharge and visual disturbance. Respiratory: Negative for chest tightness and shortness of breath. Cardiovascular: Negative for chest pain and leg swelling. Gastrointestinal: Negative for abdominal distention and abdominal pain. Genitourinary: Negative for difficulty urinating and flank pain. Musculoskeletal: Negative for gait problem and joint swelling. Skin: Negative for color change and wound. Neurological: Positive for headaches. Negative for seizures and syncope. Psychiatric/Behavioral: Negative for agitation and behavioral problems. Physical Exam Vitals and nursing note reviewed. Constitutional: General: She is not in acute distress. Appearance: Normal appearance. She is not diaphoretic. HENT: 2 cm laceration superior nasal bridge Eyes: General: No scleral icterus. Right eye: No discharge. Left eye: No discharge. Neck: Comments: C-collar in place C-spine tenderness present Trachea Midline Cardiovascular: Pulses: Normal pulses. Comments: HR and BP stable, well perfused Pulmonary: Effort: Pulmonary effort is normal. No respiratory distress. Breath sounds: No stridor. Comments: Chest wall stable Chest: Chest wall: No tenderness. Abdominal: General: There is no distension. Tenderness: There is no abdominal tenderness. There is no guarding or rebound. Genitourinary: Comments: positive gluteal squeeze Musculoskeletal: General: No tenderness or deformity. Normal range of motion. Comments: T-Spine non-tender, no palpable step offs L-Spine non-tender, no palpable step offs Skin: General: Skin is warm and dry. Neurological: General: No focal deficit present. Mental Status: She is alert and oriented to person, place, and time. Psychiatric: Mood and Affect: Mood normal. Behavior: Behavior normal. CBC: No results found for: WBC, RBC, HGB, HCT, MCV, MCH, MCHC, RDW, PLT, MPV BMP: No results found for: NA, K, CL, CO2, BUN, CREATININE, CALCIUM, LABGLOM, GLUCOSE, GLU Urine Toxicology: No components found for: IAMMENTA, IBARBIT, IBENZO, ICOCAINE, IMARTHC, IOPIATES, IPHENCYC IV Access: Peripheral NG/OG: No Roberts: No Radiology: No orders to display Social History Socioeconomic History Marital status: Spouse name: Not on file Number of children: Not on file Years of education: Not on file Highest education level: Not on file Occupational History Not on file Tobacco Use Smoking status: Not on file Smokeless tobacco: Not on file Substance and Sexual Activity Alcohol use: Not on file Drug use: Not on file Sexual activity: Not on file Other Topics Concern Not on file Social History Narrative Not on file Social Drivers of Health Financial Resource Strain: Low Risk (09/20/2024) Received from [facility] Overall Financial Resource Strain (CARDIA) Difficulty of Paying Living Expenses: Not hard at all Food Insecurity: No Food Insecurity (09/20/2024) Received from [facility] Hunger Vital Sign Worried About Running Out of Food in the Last Year: Never true Ran Out of Food in the Last Year: Never true Transportation Needs: Patient Declined (09/20/2024) Received from [facility] PRAPARE - Transportation Lack of Transportation (Medical): Patient declined Lack of Transportation (Non-Medical): Patient declined Physical Activity: Sufficiently Active (09/20/2024) Received from [facility] Exercise Vital Sign Days of Exercise per Week: 4 days Minutes of Exercise per Session: 50 min Stress: Stress Concern Present (09/20/2024) Received from [facility] [employer] - Occupational Stress Questionnaire Feeling of Stress : Rather much Social Connections: Socially Integrated (09/20/2024) Received from [facility] Social Connection and Isolation Panel [NHANES] Frequency of Communication with Friends and Family: More than three times a week Frequency of Social Gatherings with Friends and Family: More than three times a week Attends [employer] Services: More than 4 times per year Active Member of Clubs or Organizations: Yes Attends Club or Organization Meetings: More than 4 times per year Marital Status: Intimate Partner Violence: Not on file Housing Stability: Low Risk (11/14/2019) Received from [facility] Housing Stability Vital Sign Unable to Pay for Housing in the Last Year: No Number of Places Lived in the Last Year: 1 Unstable Housing in the Last Year: No Current Medications[5] ASSESSMENT: Marjorie Graham is a 74 y.o. female who presented after mechanical fall and found to have C1 and C2 fractures, nasal bone fractures, nasal septal fracture PLAN: PLAN: Neuro / Spine #C1 anterior arch and C2 odontoid fx - Appreciate ortho recs: [place] collar at all times until fu, neurovascular checks q2h. Fu outpt - Pain control: IV tylenol, IV dilaudid prn. - Elevate HOB 30 degrees - [place] and palliative cs # Depression - Hold Wellbutrin 300 mg Cardiovascular #HTN - Hemodynamically stable - Labetalol/hydralazine prn goal <160 - Telemetry -Hold home losartan-hydrochlorothiazide #HLD -Hold home rosuvastatin Pulmonary - Standard O2 protocol - IS - Duonebs PRN FEN/GI #GERD - IV protonix 40mg daily - NPO with LR 75. Speech eval - Zofran PRN - Daily BMP, CBC - No acute issues - Monitor I/Os - Goal UOP > 0.5 ml/kg/hr Endocrine #DM - Hold jardiance and metformin - Medium dose sliding scale insulin, q6h poc glucose checks #Hypothyroidism -Hold home synthroid Heme - Hgb stable - No transfusions indicated ID #[id number] decolonization - bactroban Lines/Devices: - PIV Prophylaxis: DVT: SCDs Has DVT PPX been started? No If no, why? Possible OR GI: Protonix IV 40mg daily Pressure Ulcer: Continue to monitor, Musculoskeletal: # Nasal bone fractures, fracture nasal septum - Follow-up outpatient with plastic surgery - Laceration repaired see separate procedure note All final plans discussed with air transport professionals trauma attending Orthopedics (spine) resident was notified at 1926 and responded at 1928. He evaluated imaging and the following plan was discussed: [place] collar, C spine X-rays Has/will a routine repeat head CT be ordered?: No If no, Why? Patient not on Pre-injury Anticoagulant or Anti-Platelet If no repeat head CT ordered, can DVT PPX be started? No If no, why? Plan for OR today.Patient is not being admitted.Repeat head ordered If DVT PPX can be started, has order been placed? No FRAIL SCALE for Patients Greater then Age 65 - All others choose N/A: F:Fatigue - Does the patient fatigue or get exhausted easily? No R:Resistance - Does the patient have trouble walking up one flight of stairs independently? No A:Ambulation - Does the patient have trouble walking one block (1/4 Mile)? No I:Illnesses - Does the patient have five or more illnesses (comorbidities)? Yes L:Loss of weight - Has the patient lost weight (5 to 10 percent) over the last 6 months to one year? No Greater then 2 Yes answers consider palliative consult. Obinna Solo MD General Surgery 01/13/25 7:18 PM Pager # [phone] This note may have been dictated using [employer] Edition 2.6 and/or [employer] Voice Recognition Feature. The document was proofread; however, unrecognized voice recognition facetor errors may be present. [1] No past medical history on file. [2] No past surgical history on file. [3] No family history on file. [4] Not on File [5] No current facility-administered medications for this encounter. Cosigned by Skinny Carey MD at 01/14/2025 7:22 AM EDT Associated attestation - Skinny Carey MD - 01/14/2025 7:22 AM EDT ~~~~~~~~~~~~~~~~~~~~~~~~~~~~~~~~~~ ~~~~~~~~~~~~~~~~~~~~~~~~~ Attending physician addendum: I independently saw and evaluated the patient. I personally obtained the fall and critical portion of the history and physical exam. I reviewed and agree with the documentation below. I personally reviewed patient's labs and imaging studies. My findings agree with the below note except for any details corrected. A complete review of systems was obtained and is negative except as stated in HPI. I have examined the patient at the date below. Problem List[1] Per Dr Solo's note. I have evaluated the patient on 01/13/25 HPI: 74 y.o. female sustained a mechanical (tripped) ground level fall, + hit head, no LOC. 01/13 CT head - no evidence of intracranial abnormality 01/13 CT C-spine - - C1 ring fracture in the anterior aspect, non displaced type II fracture of odontoid 01/13 - CT maxillofacial - non displaced nasal bridge fracture , avulsion at the tip fo the alveolar spine Chief complain: neck pain Problem list: -C1 vertebral body fraccture -C2 dens fracture -Nose fracture -Face laceration garrison 1.5 cm -Acute traumatic pain -DM -GERD -HLD -Essential HTN -Hypothyroidism -Obesity class I Procedures: 01/13 - primary repair of nose laceration Home medications: Bupropion Levothyroxine Losartan Metformin Jardiance Omeprazole Rosuvastatin Myrbetriq Management / Plan : Check CTA neck Place [place] collar Q2h neuro checks Consult ortho spine Multimodal pain control Consult Geriatric Medicine Consult Palliative care Primary repair of nasal laceration Refer to Plastic surgery as outpatient Start PRN Labetalol and Hydralazin - goal SBP< 160 mmHg Pulmonary toilet Check CXR Keep NPO AIR VALVE REPAIRER evaluation Start LR@ 75 Check CBC and BMP Start q6h BS check with ISS Start IV Protonix 40 mg Hold checmo DVT prophylaxis, SCDs only PIVs Check Right hand XRs Neuro checks and cardiopulmonary monitoring in TICU Level of Medical Decision Making: risk of morbidity from additional diagnostic testing or treatment due to cervical spine fractures []High [x]Moderate []Low Personally Reviewed/Independently interpreted patient's: [x]Epic notes [x]Radiology studies [x]Labs []EKG []Ordering tests []Other Discussed/ With: [x]Patient/Family [x]RN []Consultants []SW/TCC []Other I spent total time of >= 55 minutes reviewing previous notes, test results, and face to face with Marjorie Graham discussing the diagnosis and importance of compliance with the treatment plan as well as documenting on the day of the visit. Time was spent, Reviewing medical record including recent tests and results Ordering prescription medications/tests and procedures Communicating results to the patient/family/caregiver Counseling/educating the patient/family/caregiver Documenting clinical information the patient's electronic record Coordination of care for the patient Performing a medical appropriate exam and evaluation Viral Carey MD FACS Trauma, Surgical Critical Care, & General Surgery Division of Trauma Department of Surgery Formerly [facility] P [1] Patient Active Problem List Diagnosis Acute traumatic injury of cervical spine (HCC) [facility] 01-13-2025 Note Attestation signed by Skinny Carey MD at 01/14/2025 7:22 AM ~~~~~~~~~~~~~~~~~~~~~~~~~~~~~~~~~~ ~~~~~~~~~~~~~~~~~~~~~~~~~ Attending physician addendum: I independently saw and evaluated the patient. I personally obtained the fall and critical portion of the history and physical exam. I reviewed and agree with the documentation below. I personally reviewed patient's labs and imaging studies. My findings agree with the below note except for any details corrected. A complete review of systems was obtained and is negative except as stated in HPI. I have examined the patient at the date below. Problem List[1] Per Dr Solo's note. I have evaluated the patient on 01/13/25 HPI: 74 y.o. female sustained a mechanical (tripped) ground level fall, + hit head, no LOC. 01/13 CT head - no evidence of intracranial abnormality 01/13 CT C-spine - - C1 ring fracture in the anterior aspect, non displaced type II fracture of odontoid 01/13 - CT maxillofacial - non displaced nasal bridge fracture , avulsion at the tip fo the alveolar spine Chief complain: neck pain Problem list: -C1 vertebral body fraccture -C2 dens fracture -Nose fracture -Face laceration garrison 1.5 cm -Acute traumatic pain -DM -GERD -HLD -Essential HTN -Hypothyroidism -Obesity class I Procedures: 01/13 - primary repair of nose laceration Home medications: Bupropion Levothyroxine Losartan Metformin Jardiance Omeprazole Rosuvastatin Myrbetriq Management / Plan : Check CTA neck Place [place] collar Q2h neuro checks Consult ortho spine Multimodal pain control Consult Geriatric Medicine Consult Palliative care Primary repair of nasal laceration Refer to Plastic surgery as outpatient Start PRN Labetalol and Hydralazin - goal SBP< 160 mmHg Pulmonary toilet Check CXR Keep NPO AIR VALVE REPAIRER evaluation Start LR@ 75 Check CBC and BMP Start q6h BS check with ISS Start IV Protonix 40 mg Hold checmo DVT prophylaxis, SCDs only PIVs Check Right hand XRs Neuro checks and cardiopulmonary monitoring in TICU Level of Medical Decision Making: risk of morbidity from additional diagnostic testing or treatment due to cervical spine fractures []High [x]Moderate []Low Personally Reviewed/Independently interpreted patient's: [x]Epic notes [x]Radiology studies [x]Labs []EKG []Ordering tests []Other Discussed/ With: [x]Patient/Family [x]RN []Consultants []SW/TCC []Other I spent total time of >= 55 minutes reviewing previous notes, test results, and face to face with Marjorie Graham discussing the diagnosis and importance of compliance with the treatment plan as well as documenting on the day of the visit. Time was spent, Reviewing medical record including recent tests and results Ordering prescription medications/tests and procedures Communicating results to the patient/family/caregiver Counseling/educating the patient/family/caregiver Documenting clinical information the patient's electronic record Coordination of care for the patient Performing a medical appropriate exam and evaluation Viral Carey MD FACS Trauma, Surgical Critical Care, & General Surgery Division of Trauma Department of Surgery Former[facility] P [1] Patient Active Problem List Diagnosis Acute traumatic injury of cervical spine (HCC) [facility] Trauma H&P 01/13/2025 7:18 PM Trauma Attending: Dr. Carey Level of Initial Activation: [] Level 1 [] Level 2 [] Level 3 [] Trauma Evaluation [x] Direct Admit Upgraded: No To:N/A Mechanism of Injury: Fall Mechanical Mechanism of Arrival:Transfer from [facility] Chief Complaint: Fall History of Traumatic Injury: 74 y.o. female status post mechanical fall. The incident happened around 3pm on 01/13 When the event happened the patient was in her garden and tripped over a hose and hit her face. Denies loss of consciousness. She presented to [facility] and was transferred here for C1 and C2 fracture and she was placed in a c-collar. CT imaging also with nondisplaced nasal bridge fracture and fracture nasal septum and avulsion at the tip of the alveolar spine. She did not receive Tdap as it has been given in the last year. Patient pain level currently is 6/10. Did the Patient have LOC? No C-collar in place on arrival? Yes Was the patient on an antiplatelet or anticoagulant medication? No If yes, which one? NA Medical History[1] Surgical History[2] Family History[3] Who is healthcare POA or next of kin? Does the patient have a DNR? No Living Will? No Allergies[4] PRIMARY SURVEY: AIRWAY: Airway Normal EMS Airway Absent Noisy respirations Absent Vomiting/bleeding: Absent BREATHING: Spontaneous Respirations: Present (more content not included)... [facility] 12-22-2024 Telephone encounter Note Prescription Refill Information The patient has been identified by name and date of : Yes Caregiver verified no other encounters exist for this prescription request: Yes Caregiver confirmed with patient/requestor that no other refills are due, in the near future, with this provider at this time: Yes The last office visit in the department: Does the patient have a future office visit with this provider/department: Yes Requested Prescriptions Pending Prescriptions Disp Refills celecoxib (CELEBREX) 200 mg capsule 30 capsule 11 Sig: TAKE 1 TABLET BY MOUTH ONCE A DAY WITH FOOD dicyclomine (BENTYL) 10 mg capsule 60 capsule 11 Sig: Take 1 capsule by mouth two times a day as needed. Becca Jean MA December 22, 2024 1:28 PM [facility] 12-22-2024 Miscellaneous Notes Prescription Refill Information The patient has been identified by name and date of : Yes Caregiver verified no other encounters exist for this prescription request: Yes Caregiver confirmed with patient/requestor that no other refills are due, in the near future, with this provider at this time: Yes The last office visit in the department: Does the patient have a future office visit with this provider/department: Yes Requested Prescriptions Pending Prescriptions Disp Refills celecoxib (CELEBREX) 200 mg capsule 30 capsule 11 Sig: TAKE 1 TABLET BY MOUTH ONCE A DAY WITH FOOD dicyclomine (BENTYL) 10 mg capsule 60 capsule 11 Sig: Take 1 capsule by mouth two times a day as needed. Becca Jean MA December 22, 2024 1:28 PM documented in this encounter [facility] 12-19-2024 History of Present illness Narrative Images from the original note were not included. SECTION OF RHINOLOGY, SINUS AND SKULL BASE SURGERY Head and Neck [facility] FOLLOW UP CLINIC NOTE CC: CRS HPI: Marjorie Graham is a 74 year old female seen today for CRS follow-up. Pt was last seen on 09/12/24 where nasal endoscopy demonstrated no present infection. Pt is continuing the use of Flonase and saline rinses. Pt had eye surgery for diplopia on 11/07/[address] Buckner at [facility]. Pt states that after eye surgery she is now able to see much better. States that she has had a lot of drainage and sinus headaches. SNOT-22 Nasal Score Ear/Facial Score Sleep Score Function Score Emotion Score Total Score 12/12/2024 14 0 0 4 1 19 09/05/2024 7 2 2 0 1 12 07/17/2024 8 2 4 5 2 21 PHYSICAL EXAM: GENERAL: No acute distress, calm and cooperative, alert and oriented. HEAD/FACE: Normocephalic, atraumatic, facial structures stable and symmetric. EYES: Extraocular movements intact. No ocular lesions noted. EARS: No auricular deformity noted. ORAL CAVITY/OROPHARYNX: No mucosal lesions noted, tongue/uvula midline, tonsils unremarkable. NECK: No obvious masses, full range of motion present. RESPIRATORY: Unlabored breathing on room air. Voice is strong. No stridor or other noisy breathing. NEUROLOGIC: Cranial nerves 3-12 are grossly intact. PROCEDURE NOTE: Procedure: Nasal endoscopy Indication: CRS Findings: After topical application of lidocaine and Afrin sprays for anesthesia and decongestion, rigid nasal endoscopy was performed. This revealed Sinuses are patent bilaterally. MM is clear bilaterally. No polyps. Recirculation on the left side. The patient tolerated the procedure well. ASSESSMENT: Marjorie Graham is a 74 year old female with: Recirculation on the left side PLAN: Nasal endoscopy today demonstrated recirculation on the left side Continue current nasal regimen Follow up in 6 months Medical Decision Making: Medical Decision Making Level: 1 - N/A By signing my name below, I, Evelio Olsen, attest that this documentation has been prepared under the direction and in the presence of Dr. Michael Tariq Electronically Signed, Jorge Goins December 19, 2024 10:02 AM I agree with the Chief Complaint, ROS, and Past Histories independently gathered by the clinical shipping support clerk and the remaining scribed note accurately describes my personal service to the patient. Disclosure: Dr. Tariq receives payments from [employer]/or [employer] for conducting educational activities and/or consulting. An [employer] and/or [employer] product may be used in your care. Dr. Tariq does not receive any money for products he/she or any other [facility] physicians prescribe or use. Dr. Tariq's choice on which product to use in your case was not influenced by his/her relationship with [employer]/or [employer]. Your physician selected the product that in his or her hands is believed to be the best option for your treatment. documented in this encounter [facility] 12-19-2024 Note HNO ID: [id number] Author: ?, ?, ? Service: ? Author Type: ? Type: Progress Notes Filed: 01/14/2025 10:26 Note Text: SECTION OF RHINOLOGY, SINUS AND SKULL BASE SURGERY Head and Neck [facility] FOLLOW UP CLINIC NOTE CC: CRS HPI: Marjorie Graham is a 74 year old female seen today for CRS follow-up. Pt was last seen on 09/12/24 where nasal endoscopy demonstrated no present infection. Pt is continuing the use of Flonase and saline rinses. Pt had eye surgery for diplopia on 11/07/[address] Buckner at [facility]. Pt states that after eye surgery she is now able to see much better. States that she has had a lot of drainage and sinus headaches. SNOT-22 Nasal Score Ear/Facial Score Sleep Score Function Score Emotion Score Total Score 12/12/2024 14 0 0 4 1 19 09/05/2024 7 2 2 0 1 12 07/17/2024 8 2 4 5 2 21 PHYSICAL EXAM: GENERAL: No acute distress, calm and cooperative, alert and oriented. HEAD/FACE: Normocephalic, atraumatic, facial structures stable and symmetric. EYES: Extraocular movements intact. No ocular lesions noted. EARS: No auricular deformity noted. ORAL CAVITY/OROPHARYNX: No mucosal lesions noted, tongue/uvula midline, tonsils unremarkable. NECK: No obvious masses, full range of motion present. RESPIRATORY: Unlabored breathing on room air. Voice is strong. No stridor or other noisy breathing. NEUROLOGIC: Cranial nerves 3-12 are grossly intact. PROCEDURE NOTE: Procedure: Nasal endoscopy Indication: CRS Findings: After topical application of lidocaine and Afrin sprays for anesthesia and decongestion, rigid nasal endoscopy was performed. This revealed Sinuses are patent bilaterally. MM is clear bilaterally. No polyps. Recirculation on the left side. The patient tolerated the procedure well. ASSESSMENT: Marjorie Graham is a 74 year old female with: Recirculation on the left side PLAN: Nasal endoscopy today demonstrated recirculation on the left side Continue current nasal regimen Follow up in 6 months Medical Decision Making: Medical Decision Making Level: 1 - N/A By signing my name below, I, Evelio Olsen, attest that this documentation has been prepared under the direction and in the presence of Dr. Michael Tariq Electronically Signed, Jorge Goins December 19, 2024 10:02 AM I agree with the Chief Complaint, ROS, and Past Histories independently gathered by the clinical shipping support clerk and the remaining scribed note accurately describes my personal service to the patient. Disclosure: Dr. Tariq receives payments from [employer]/or [employer] for conducting educational activities and/or consulting. An [employer] and/or [employer] product may be used in your care. Dr. Tariq does not receive any money for products he/she or any other [facility] physicians prescribe or use. Dr. Tariq's choice on which product to use in your case was not influenced by his/her relationship with [employer]/or [employer] Your physician selected the product that in his or her hands is believed to be the best option for your treatment. [facility] 09-30-2024 Telephone encounter Note My chart message to pt. [facility] 09-30-2024 Miscellaneous Notes My chart message to pt. Images from the original note were not included. Close reason: Other Payer: [employer] [phone] Note from payer: Drug is not covered by plan View History Medication Being Authorized Blood-Glucose Meter,Continuous (FREESTYLE KISHAN 3 READER) misc Use to check blood sugar at least four (4) times daily. Dispense: 1 Each Refills: 0 Start: 09/26/2024 Class: Normal This order has been released to its destination. To be filled at: [employer] [place], [place] [id number] [address] [facility] [phone] Images from the original note were not included. PA response for kishan sensors and reader is Close reason: Other Payer: [employer] [phone] Note from payer: Drug is not covered by plan View History Medication Being Authorized Blood-Glucose Sensor (FREESTYLE KISHAN 3 PLUS SENSOR) layla Apply new sensor every fifteen (15) days to upper arm. Dispense: 6 Each Refills: 4 Start: 09/26/2024 Class: Normal This order has been released to its destination. To be filled at: [place] [address] [address] [facility] [phone] documented in this encounter [facility] 09-26-2024 Telephone encounter Note Images from the original note were not included. Close reason: Other Payer: [employer] [phone] Note from payer: Drug is not covered by plan View History Medication Being Authorized Blood-Glucose Meter,Continuous (FREESTYLE KISHAN 3 READER) misc Use to check blood sugar at least four (4) times daily. Dispense: 1 Each Refills: 0 Start: 09/26/2024 Class: Normal This order has been released to its destination. To be filled at: [facility] [place] [address] [address] [facility] [phone] [facility] 09-26-2024 Telephone encounter Note Images from the original note were not included. PA response for kishan sensors and reader is Close reason: Other Payer: [employer] [phone] Note from payer: Drug is not covered by plan View History Medication Being Authorized Blood-Glucose Sensor (FREESTYLE KISHAN 3 PLUS SENSOR) layla Apply new sensor every fifteen (15) days to upper arm. Dispense: 6 Each Refills: 4 Start: 09/26/2024 Class: Normal This order has been released to its destination. To be filled at: [place] [address] [address] [facility] [phone] [facility] 09-26-2024 Instructions Lauren Sawant LPN - 09/26/2024 10:48 AM EDT Screening schedule The following prevention plan is recommended: Spirometry Never done Anxiety Screening Never done Diabetic Foot Exam due on 01/18/2022 Covid-19 Vaccine( season) due on 03/02/2024 Advance Directive Discussion due on 07/02/2024 WHAT YOU CAN DO TO PREVENT FALLS Many falls can be prevented. By making some changes, you can lower your chances of falling. Four things YOU can do to prevent falls for you* and your caregiver 1. Begin a regular exercise program Exercise is one of the most important ways to lower your chances of falling. It makes you stronger and helps you feel better. Exercises that improve balance and coordination (like [place] [employer]) are the most helpful. Lack of exercise leads to weakness and increases your chances of falling. Ask your doctor or health care provider about the best type of exercise program for you. 2. Have your health care provider review your medicines Have your doctor or pharmacist review all the medicines you take, even [id number] medicines. As you get older, the way medicines work in your body can change. Some medicines, or combinations of medicines, can make you sleepy or dizzy and can cause you to fall. 3. Have your vision checked Have your eyes checked by an eye doctor at least once a year. You may be wearing the wrong glasses or have a condition like glaucoma or cataracts that limits your vision. Poor vision can increase your chances of falling. 4. Make your home safer About half of all falls happen at home. To make your home safer: Remove things you can trip over (like papers, books, clothes, and shoes) from stairs and places where you walk. Remove small throw rugs or use double-sided tape to keep the rugs from slipping. Keep items you use often in cabinets you can reach easily without using a step stool. Have grab bars put in next to your toilet and in the tub or shower. Use non-slip mats in the bathtub and on shower floors. Improve the lighting in your home. As you get older, you need brighter lights to see well. Hang light-weight curtains or shades to reduce glare. Have handrails and lights put in on all staircases. Wear shoes both inside and outside the house. Avoid going barefoot or wearing slippers. For more information, contact: Centers for Disease Control and Prevention www.cdc.gov/injury * This information may not apply if you have certain medical conditions. documented in this encounter [facility] 09-26-2024 Note HNO ID: [id number] Author: FIFI GREEN MD Service: ? Author Type: Physician Type: Progress Notes Filed: 10/03/2024 01:58 Note Text: Medicare Health Risk Assessment General Health Fair Exercise: Minutes/Day 50 min Exercise: Days/Week 4 days Alcohol: Daily Use Never Alcohol: Drinks/Day Patient does not drink Alcohol: 6 or more drinks Never Feel off balance Yes Concerns: Teeth/Dentures No Concerns: Sexual function No Troubled by feelings None of the above Frequency: Eating healthy diet Several days ADLs requiring help None of the above Safety precautions in home/vehicle Yes Smoke, vape, chews tobacco No Difficulty hearing No Difficulty seeing No (Getting eye surgery for left eye; right is fine) Current Providers Specialists: I have reviewed specialist-related care of the patient in the medical record. Outside specialists seen: Eye surgeon--Dr. Buckner ([facility]'); Dr. Irene García (parking patroller) Medical/Family history review Reviewed and updated problem list, medical/surgical/family/social history, medications, and allergies. Opioid use review Opioid Medications (last 90 days) No data to display Anxiety/Depression screening PHQ-9 Score: 4 (Minimal Depression) GERTRUDIS-7 Score: 4 (Minimal Anxiety) Recommendation: no further intervention at this time, continuing current treatment plan, and medication management Cognitive screening Mini Cog Score: 5 Cognitive screening reviewed and No further action needed (score 3-5). Functional Observation Was the patient's Timed Up AND Go test unsteady or >= 12 seconds? No Advance Care Planning Surrogate decision maker and/or advance care plan documented Current Outpatient Medications Medication Sig metFORMIN ER (GLUCOPHAGE XR) 500 mg 24 hr tablet Taking total of 4 pills per day but in divided doses omeprazole (PRILOSEC) 40 mg capsule Take 1 capsule by mouth once daily. predniSONE (DELTASONE) 5 mg tablet Take 1 tablet by mouth two times a day as needed. tobramycin 20 mg (CPD) Use 1 Each in the nose two times a day. Comments for compounding pharmacy: tobramycin 20mg - into 8oz saline. Perform irrigations twice daily rosuvastatin (CRESTOR) 10 mg tablet Take 1 tablet by mouth once daily. beta-carotene,A,-vits C,E/mins (OCUVITE ORAL) Take 1 capsule by mouth once daily. blood sugar diagnostic (BLOOD GLUCOSE TEST) test strip Test blood sugar(s) 1 times daily. Dx: Type 2 DM - Uncontrolled E11.65 Insulin: No Lancets Test blood suga(s) 1 times daily. Dx: Type 2 DM - Uncontrolled E11.65 Insulin: No. Also dispense a lancet pen buPROPion XL (WELLBUTRIN XL) 300 mg 24 hr tablet Take 1 tablet by mouth once daily. levothyroxine (SYNTHROID) 112 mcg tablet Take 1 tablet by mouth once daily. Take on empty stomach. For thyroid losartan-hydroCHLOROthiazide (HYZAAR) 100-25 mg per tablet Take 1 tablet by mouth once daily. ondansetron orally disintegrating (ZOFRAN ODT) 4 mg disintegrating tablet Take 1 tablet by mouth every 8 hours as needed for nausea/vomiting. scopolamine (TRANSDERM-SCOP) patch 1.5 mg/72 hr (delivers 1 mg over 3 days) Apply 1 Patch as directed every 72 hours. Apply patch to skin behind ear 4hrs prior to travel. benzonatate (TESSALON PERLES) 100 mg capsule Take 1-2 capsules by mouth three times a day as needed. albuterol (PROVENTIL) 2.5 mg /3 mL (0.083 %) nebulizer solution Use 3 mL via nebulizer every 4 hours as needed for wheezing/shortness of breath. meclizine (ANTIVERT) 25 mg tab TAKE ONE TABLET BY MOUTH EVERY 6 HOURS NEEDED FOR DIZZINESS albuterol HFA (VENTOLIN HFA) 90 mcg/actuation inhaler Inhale 2 Puffs as instructed every 4 hours as needed. hyoscyamine (LEVSIN) 0.125 mg tablet Take 0.125 mg by mouth every 6 hours as needed. phenazopyridine (PYRIDIUM) 200 mg tablet Take 1 tablet by mouth three times daily as needed. dicyclomine (BENTYL) 10 mg capsule Take 1 capsule by mouth twice daily as needed. montelukast (SINGULAIR) 10 mg tablet Take 1 tablet by mouth daily at bedtime. celecoxib (CELEBREX) 200 mg capsule TAKE 1 TABLET BY MOUTH ONCE A DAY WITH FOOD multivitamin tablet Take 1 tablet by mouth once daily. Cholecalciferol, Vitamin D3, (VITAMIN D) 1,000 unit cap Take 1 capsule by mouth once daily. cetirizine (ZYRTEC) 10 mg tablet Take 10 mg by mouth once daily. acetaminophen 500 mg tablet Take 500 mg by mouth every 6 hours as needed. empagliflozin (JARDIANCE) 25 mg tablet Take 1 tablet by mouth daily with breakfast. mirabegron (MYRBETRIQ) 25 mg Tb24 Take 1 tablet by mouth once daily. fluticasone (FLONASE) 50 mcg/actuation nasal spray Use 2 Sprays in each nostril once daily. Blood-Glucose Meter,Continuous (FREESTYLE KISHAN 3 READER[place] [facility] [place] check blood sugar at least four (4) times daily. Blood-Glucose Sensor (FREESTYLE KISHAN 3 PLUS SENSOR) layla Apply new sensor every fifteen (15) days to upper arm. No current facility-administered medications for this visit. (more content not included)... [facility] 09-26-2024 History of Present illness Narrative Images from the original note were not included. Medicare Health Risk Assessment General Health Fair Exercise: Minutes/Day 50 min Exercise: Days/Week 4 days Alcohol: Daily Use Never Alcohol: Drinks/Day Patient does not drink Alcohol: 6 or more drinks Never Feel off balance Yes Concerns: Teeth/Dentures No Concerns: Sexual function No Troubled by feelings None of the above Frequency: Eating healthy diet Several days ADLs requiring help None of the above Safety precautions in home/vehicle Yes Smoke, vape, chews tobacco No Difficulty hearing No Difficulty seeing No (Getting eye surgery for left eye; right is fine) Current Providers Specialists: I have reviewed specialist-related care of the patient in the medical record. Outside specialists seen: Eye surgeon--Dr. Buckner ([facility]); Dr. Irene García (parking patroller) Medical/Family history review Reviewed and updated problem list, medical/surgical/family/social history, medications, and allergies. Opioid use review Opioid Medications (last 90 days) No data to display Anxiety/Depression screening PHQ-9 Score: 4 (Minimal Depression) GERTRUDIS-7 Score: 4 (Minimal Anxiety) Recommendation: no further intervention at this time, continuing current treatment plan, and medication management Cognitive screening Mini Cog Score: 5 Cognitive screening reviewed and No further action needed (score 3-5). Functional Observation Was the patient's Timed Up & Go test unsteady or >= 12 seconds? No Advance Care Planning Surrogate decision maker and/or advance care plan documented Current Outpatient Medications Medication Sig metFORMIN ER (GLUCOPHAGE XR) 500 mg 24 hr tablet Taking total of 4 pills per day but in divided doses omeprazole (PRILOSEC) 40 mg capsule Take 1 capsule by mouth once daily. predniSONE (DELTASONE) 5 mg tablet Take 1 tablet by mouth two times a day as needed. tobramycin 20 mg (CPD) Use 1 Each in the nose two times a day. Comments for compounding pharmacy: tobramycin 20mg - into 8oz saline. Perform irrigations twice daily rosuvastatin (CRESTOR) 10 mg tablet Take 1 tablet by mouth once daily. beta-carotene,A,-vits C,E/mins (OCUVITE ORAL) Take 1 capsule by mouth once daily. blood sugar diagnostic (BLOOD GLUCOSE TEST) test strip Test blood sugar(s) 1 times daily. Dx: Type 2 DM - Uncontrolled E11.65 Insulin: No Lancets Test blood suga(s) 1 times daily. Dx: Type 2 DM - Uncontrolled E11.65 Insulin: No. Also dispense a lancet pen buPROPion XL (WELLBUTRIN XL) 300 mg 24 hr tablet Take 1 tablet by mouth once daily. levothyroxine (SYNTHROID) 112 mcg tablet Take 1 tablet by mouth once daily. Take on empty stomach. For thyroid losartan-hydroCHLOROthiazide (HYZAAR) 100-25 mg per tablet Take 1 tablet by mouth once daily. ondansetron orally disintegrating (ZOFRAN ODT) 4 mg disintegrating tablet Take 1 tablet by mouth every 8 hours as needed for nausea/vomiting. scopolamine (TRANSDERM-SCOP) patch 1.5 mg/72 hr (delivers 1 mg over 3 days) Apply 1 Patch as directed every 72 hours. Apply patch to skin behind ear 4hrs prior to travel. benzonatate (TESSALON PERLES) 100 mg capsule Take 1-2 capsules by mouth three times a day as needed. albuterol (PROVENTIL) 2.5 mg /3 mL (0.083 %) nebulizer solution Use 3 mL via nebulizer every 4 hours as needed for wheezing/shortness of breath. meclizine (ANTIVERT) 25 mg tab TAKE ONE TABLET BY MOUTH EVERY 6 HOURS NEEDED FOR DIZZINESS albuterol HFA (VENTOLIN HFA) 90 mcg/actuation inhaler Inhale 2 Puffs as instructed every 4 hours as needed. hyoscyamine (LEVSIN) 0.125 mg tablet Take 0.125 mg by mouth every 6 hours as needed. phenazopyridine (PYRIDIUM) 200 mg tablet Take 1 tablet by mouth three times daily as needed. dicyclomine (BENTYL) 10 mg capsule Take 1 capsule by mouth twice daily as needed. montelukast (SINGULAIR) 10 mg tablet Take 1 tablet by mouth daily at bedtime. celecoxib (CELEBREX) 200 mg capsule TAKE 1 TABLET BY MOUTH ONCE A DAY WITH FOOD multivitamin tablet Take 1 tablet by mouth once daily. Cholecalciferol, Vitamin D3, (VITAMIN D) 1,000 unit cap Take 1 capsule by mouth once daily. cetirizine (ZYRTEC) 10 mg tablet Take 10 mg by mouth once daily. acetaminophen 500 mg tablet Take 500 mg by mouth every 6 hours as needed. empagliflozin (JARDIANCE) 25 mg tablet Take 1 tablet by mouth daily with breakfast. mirabegron (MYRBETRIQ) 25 mg Tb24 Take 1 tablet by mouth once daily. fluticasone (FLONASE) 50 mcg/actuation nasal spray Use 2 Sprays in each nostril once daily. Blood-Glucose Meter,Continuous (FREESTYLE KISHAN 3 READER) [facility] Use to check blood sugar at least four (4) times daily. Blood-Glucose Sensor (FREESTYLE KISHAN 3 PLUS SENSOR) layla Apply new sensor every fifteen (15) days to upper arm. No current facility-administered medications for this visit. Measurements BP 118/68 Pulse 70 Resp 16 Ht 159 cm (5' 2.6) Wt 81.2 kg (179 lb 0.2 oz) SpO2 98% BMI 32.12 kg/m Vision Screening: Follows with optometry/ophthalmology Assessment/Plan Medicare annual wellness visit, subsequent (Z00.00) - Counseled on healthy diet and regular exercise - Fall avoidance information provided - Personalized prevention plan provided Additional Concerns The following concerns were also discussed with the patient: The patient consented to the use of [employer] software for draft documentation of the visit consistent with [facility] s Notice of Privacy Practices. Marjorie is a 74-year-old female with a history of T2DM, fibromyalgia, and asthma, presenting for a Medicare Annual Wellness Visit. Marjorie reports recent lab results showing a calcium level of 0.1 above normal. She is currently taking a multivitamin and vitamin D supplement and drinks a lot of milk. She denies taking additional calcium supplements. Her blood glucose levels have improved, with recent readings in the 160s, and her HbA1c has decreased from 9.4% to 8.5% since March. She is currently taking Jardiance and metformin for diabetes management and inquires about continuing these medications. She prefers to receive her medications in 30-day supplies. She also requests a refill for Myrbetriq, which she takes for bladder issues. She mentions that her insurance does not cover this medication, but it is effective for her, so she is willing to pay out of pocket. She is also taking Flonase, omeprazole, rosuvastatin, and Zofran as needed. She has a history of hives with penicillin and Levaquin. Marjorie reports experiencing constipation for the past few weeks, despite increasing her water intake and using [id number] treatments such as Miralax and Metamucil. She notes that taking more than one capful of Miralax or using Metamucil up to three times a day can lead to diarrhea the next day. She describes her stools as small and hard. She has a history of fibromyalgia and is currently taking bupropion for management. She receives acupuncture every two weeks and a craniosacral massage once a month for fibromyalgia. She has resumed walking and uses a walking stick for stability. Marjorie has a history of eye issues and is scheduled for surgery with a pediatric eye surgeon at [facility] on the . She mentions that her left eye has been pulling mucus, and her ENT, Dr. Tariq, has recommended surgery to prevent constant infections. She also reports that her vision in her left eye is affected, but her right eye is fine. She has been driving around [place] and [place] and walking on her newly paved driveway. She has a history of breast cancer and has undergone back surgery. She reports swelling in her legs, which she attributes to lymph node removal during her surgeries. She has a family history of diabetes, with her brother being affected. She has advanced directives in place, with her as her decision-maker. She has received the flu vaccine but did not get a COVID-19 vaccine this year. Constitutional: (+) sleep disturbance Eyes: (+) visual disturbances (left) Gastrointestinal: (+) constipation Psychiatric: (-) depression, (-) anxiety Labs: - Most Recent (Date Not Provided): - Calcium: 0.1 above normal range - BUN: 1 point above normal range - RBC: 0.01 above normal range - WBC: Within normal limits - Platelets: Within normal limits - Hemoglobin A1c: 8.0 - Glucose: Approximately 160 mg/dL - March: - Hemoglobin A1c: 9.4 BP 118/68 Pulse 70 Resp 16 Ht 159 cm (5' 2.6) Wt 81.2 kg (179 lb 0.2 oz) SpO2 98% BMI 32.12 kg/m Constitutional: General: No acute distress. Appearance: Normal appearance. Well-developed. HENT: Head: Normocephalic. Right Ear: Tympanic membrane, ear canal, and external ear normal. Left Ear: Tympanic membrane, ear canal, and external ear normal. Nose: Nose normal. No rhinorrhea. Mouth/Throat: Mouth: Mucous membranes are moist. Pharynx: Oropharynx is clear. No posterior oropharyngeal erythema. Eyes: Conjunctiva/sclera: Conjunctivae normal. Neck: Thyroid: No thyromegaly. Cardiovascular: Rate and Rhythm: Normal rate and regular rhythm. Heart sounds: Normal heart sounds. No murmur heard. Pulmonary: Effort: Pulmonary effort is normal. Breath sounds: Normal breath sounds. No wheezing or rales. Abdominal: General: Bowel sounds are normal. There is no distension. Palpations: Abdomen is soft. Tenderness: There is no abdominal tenderness. Musculoskeletal: Cervical back: Neck supple. Lower legs: No edema. Lymphadenopathy: Cervical: No cervical adenopathy. Skin: General: Skin is warm and dry. Findings: No erythema or rash. Neurological: General: No focal deficit present. Mental Status: Alert. Psychiatric: Mood and Affect: Mood normal. Thought Content: Thought content normal. # Medicare annual wellness visit, subsequent (Z00.00) - Completed Medicare annual wellness visit. - Reviewed recent lab results: Calcium slightly elevated at 0.1 above normal; advised to review multivitamin content and consider reducing calcium intake if excessive. - BUN slightly elevated; advised increased hydration. - Sodium, potassium, and eGFR within normal limits. - CBC showed a minimal increase in RBC count; hemoglobin and hematocrit are normal. - Diabetic foot exam performed; normal sensitivities in all 10 sites. - Discussed advanced directives; patient has them in place with as decision maker. - COVID vaccinations up to date as of last year. - Scheduled follow-up in 3 months to monitor diabetes control. # Type 2 diabetes mellitus with hyperglycemia, without long-term current use of insulin (HCC) (E11.65) - A1c improved from 9.4% to 8.0%. - Continue Jardiance and metformin as prescribed. - Refilled Jardiance 30-day supply with 11 refills. - Ordered BioDetegoe 3 CGM to monitor glucose levels; prescription sent to [facility]. - Scheduled follow-up in 3 months with [id number] A1c testing. # Urge incontinence of urine (N39.41) - Refilled Myrbetriq 25 mg, 30-day supply with 11 refills. # Alternating constipation and diarrhea (R19.8) - Advised to continue Miralax daily and Metamucil as needed. - Recommended Milk of Magnesia to initiate bowel movement if needed. - Encouraged increased hydration and dietary fiber intake. # Encounter for screening examination for other mental health and behavioral disorders (Z13.39) - No changes in current medications; continue bupropion. - No formal diagnosis of anxiety or panic attacks; symptoms attributed to current medical issues. # Diplopia (H53.2) - Undergoing evaluation and treatment by Dr. Buckner, pediatric eye surgeon at [facility]. - Scheduled for potential corrective surgery depending on upcoming evaluation results. Fifi Green MD documented in this encounter [facility] 09-12-2024 History of Present illness Narrative Images from the original note were not included. SECTION OF RHINOLOGY, SINUS AND SKULL BASE SURGERY Head and Neck [facility] FOLLOW UP CLINIC NOTE CC: CRS HPI: Marjorie Graham is a 74 year old female seen today for CRS follow up. Pt was last seen on 07/18/24 where nasal endoscopy demonstrated that the left ethmoid are patent no infection. Cannot see the left maxillary sinus, the right maxillary sinus is very small. Pt is using Flonase and Tobramycin rinses. Pts eye is improving but still has diplopia, can now see downward, but cannot see well to the left with the left eye. Pt saw ophthalmology on 08/13/24. Today, pt states that she still has some drainage but the Flonase has helped. CT sinus 07/29/24 IMPRESSION: Postoperative changes of bilateral ethmoidectomies with overall substantially improved extent of paranasal sinus disease relative to the 04/04/2024 exam except for small air-fluid levels in the maxillary sinuses, increased on the right and new on the left, which may reflect acute sinusitis in the appropriate clinical setting. 06/20/2024 Culture Rare Achromobacter species ! Culture Few normal respiratory aleisha Smear Result No organisms seen Smear Result No Polymorphonuclear Leukocytes Legend: ! Abnormal SNOT-22 Nasal Score Ear/Facial Score Sleep Score Function Score Emotion Score Total Score 09/05/2024 7 2 2 0 1 12 07/17/2024 8 2 4 5 2 21 PHYSICAL EXAM: GENERAL: No acute distress, calm and cooperative, alert and oriented. HEAD/FACE: Normocephalic, atraumatic, facial structures stable and symmetric. EYES: Extraocular movements intact. No ocular lesions noted. EARS: No auricular deformity noted. ORAL CAVITY/OROPHARYNX: No mucosal lesions noted, tongue/uvula midline, tonsils unremarkable. NECK: No obvious masses, full range of motion present. RESPIRATORY: Unlabored breathing on room air. Voice is strong. No stridor or other noisy breathing. NEUROLOGIC: Cranial nerves 3-12 are grossly intact. PROCEDURE NOTE: Procedure: Nasal endoscopy Indication: CRS Findings: After topical application of lidocaine and Afrin sprays for anesthesia and decongestion, rigid nasal endoscopy was performed. This revealed Sinuses are patent bilaterally. MM is clear bilaterally. No pus or polyps. The patient tolerated the procedure well. ASSESSMENT: Marjorie Graham is a 74 year old female with: S/p bilteral ESS by OSH with postop complications of diplopia and vertigo. Possible retrorbital fracture PLAN: Nasal endoscopy today demonstrated no present infection Continue using Flonase and saline rinses If discharge becomes discolored, go back on Tobramycin rinses Plan on starting antibiotic rinses 1 week before eye surgery to prevent infection Follow up after eye surgery around end of Medical Decision Making: Problems: Moderate: 2+ stable chronic illnesses Risk: Low: Low risk from testing/treatment Medical Decision Making Level: 3 - Low By signing my name below, I, Evelio Olsen, attest that this documentation has been prepared under the direction and in the presence of Dr. Michael Tariq Electronically Signed, Evelio OlsenJorge September 12, 2024 10:11 AM I agree with the Chief Complaint, ROS, and Past Histories independently gathered by the clinical shipping support clerk and the remaining scribed note accurately describes my personal service to the patient. Disclosure: Dr. Tariq receives payments from [employer] and/or [employer] for conducting educational activities and/or consulting. An [employer] and/or [employer] product may be used in your care. Dr. Tariq does not receive any money for products he/she or any other [facility] physicians prescribe or use. Dr. Tariq's choice on which product to use in your case was not influenced by his/her relationship with [employer] and/or [employer]. Your physician selected the product that in his or her hands is believed to be the best option for your treatment. documented in this encounter [facility] 09-12-2024 Note HNO ID: [id number] Author: MICHAEL TARIQ MD Service: ? Author Type: Physician Type: Progress Notes Filed: 10/21/2024 09:34 Note Text: SECTION OF RHINOLOGY, SINUS AND SKULL BASE SURGERY Head and Neck [facility] FOLLOW UP CLINIC NOTE CC: CRS HPI: Marjorie Graham is a 74 year old female seen today for CRS follow up. Pt was last seen on 07/18/24 where nasal endoscopy demonstrated that the left ethmoid are patent no infection. Cannot see the left maxillary sinus, the right maxillary sinus is very small. Pt is using Flonase and Tobramycin rinses. Pts eye is improving but still has diplopia, can now see downward, but cannot see well to the left with the left eye. Pt saw ophthalmology on 08/13/24. Today, pt states that she still has some drainage but the Flonase has helped. CT sinus 07/29/24 IMPRESSION: Postoperative changes of bilateral ethmoidectomies with overall substantially improved extent of paranasal sinus disease relative to the 04/04/2024 exam except for small air-fluid levels in the maxillary sinuses, increased on the right and new on the left, which may reflect acute sinusitis in the appropriate clinical setting. 06/20/2024 Culture Rare Achromobacter species ! Culture Few normal respiratory aleisha Smear Result No organisms seen Smear Result No Polymorphonuclear Leukocytes Legend: ! Abnormal SNOT-22 Nasal Score Ear/Facial Score Sleep Score Function Score Emotion Score Total Score 09/05/2024 7 2 2 0 1 12 07/17/2024 8 2 4 5 2 21 PHYSICAL EXAM: GENERAL: No acute distress, calm and cooperative, alert and oriented. HEAD/FACE: Normocephalic, atraumatic, facial structures stable and symmetric. EYES: Extraocular movements intact. No ocular lesions noted. EARS: No auricular deformity noted. ORAL CAVITY/OROPHARYNX: No mucosal lesions noted, tongue/uvula midline, tonsils unremarkable. NECK: No obvious masses, full range of motion present. RESPIRATORY: Unlabored breathing on room air. Voice is strong. No stridor or other noisy breathing. NEUROLOGIC: Cranial nerves 3-12 are grossly intact. PROCEDURE NOTE: Procedure: Nasal endoscopy Indication: CRS Findings: After topical application of lidocaine and Afrin sprays for anesthesia and decongestion, rigid nasal endoscopy was performed. This revealed Sinuses are patent bilaterally. MM is clear bilaterally. No pus or polyps. The patient tolerated the procedure well. ASSESSMENT: Marjorie Graham is a 74 year old female with: S/p bilteral ESS by OSH with postop complications of diplopia and vertigo. Possible retrorbital fracture PLAN: Nasal endoscopy today demonstrated no present infection Continue using Flonase and saline rinses If discharge becomes discolored, go back on Tobramycin rinses Plan on starting antibiotic rinses 1 week before eye surgery to prevent infection Follow up after eye surgery around end of october/november Medical Decision Making: Problems: Moderate: 2+ stable chronic illnesses Risk: Low: Low risk from testing/treatment Medical Decision Making Level: 3 - Low By signing my name below, I, Evelio Olsen, attest that this documentation has been prepared under the direction and in the presence of Dr. Michael Tariq Electronically Signed, Jorge Goins September 12, 2024 10:11 AM I agree with the Chief Complaint, ROS, and Past Histories independently gathered by the clinical shipping support clerk and the remaining scribed note accurately describes my personal service to the patient. Disclosure: Dr. Tariq receives payments from [employer] and/or [employer] for conducting educational activities and/or consulting. An [employer] and/or [employer] product may be used in your care. Dr. Tariq does not receive any money for products he/she or any other [facility] physicians prescribe or use. Dr. Tariq's choice on which product to use in your case was not influenced by his/her relationship with [employer]/or [employer]. Your physician selected the product that in his or her hands is believed to be the best option for your treatment. [facility] 09-11-2024 Telephone encounter Note Patient is scheduled for 09/12 . [facility] 09-11-2024 Miscellaneous Notes Patient is scheduled for 09/12 . documented in this encounter [facility] 08-15-2024 Telephone encounter Note CD READY FOR BOTTLER HELPER AT [facility] [place] [facility] Pt is aware [facility] 08-15-2024 Miscellaneous Notes CD READY FOR BOTTLER HELPER AT [facility] [place] [facility] Pt is aware Patient is requesting Ct of sinus on 07/29/24 copied to a disk for pecan picker documented in this encounter [facility] 08-14-2024 Telephone encounter Note Patient is requesting Ct of sinus on 07/29/24 copied to a disk for pecan picker [facility] 08-11-2024 Telephone encounter Note This is okay. Appointment updated. Left detailed message. [facility] 08-11-2024 Miscellaneous Notes This is okay. Appointment updated. Left detailed message. Marjorie is calling Michael Tariq MD today with concern regarding Patient Question. Patient's computer is still in the shop. Her appointment will need to be a phone call. Patient has been identified by name and birthdate. Duration of symptoms: N/A Person calling: self Call patient at: on cell [phone] (home) [phone] (cell) Was an appointment scheduled: No Closing statement: Symptom Call: Thank you for calling [facility], your call is very important. A nurse will call in approximately 2-4 hours during business hours. If this is an emergency, please contact 911. Chantelle Layne documented in this encounter [facility] 08-11-2024 Telephone encounter Note Marjorie is calling Michael Tariq MD today with concern regarding Patient Question. Patient's computer is still in the shop. Her appointment will need to be a phone call. Patient has been identified by name and birthdate. Duration of symptoms: N/A Person calling: self Call patient at: on cell [phone] (home) [phone] (cell) Was an appointment scheduled: No Closing statement: Symptom Call: Thank you for calling [facility], your call is very important. A nurse will call in approximately 2-4 hours during business hours. If this is an emergency, please contact 911. Chantelle Layne [facility] 07-30-2024 Telephone encounter Note Spoke with patient who accepted VV for tomorrow [facility] Work Phone: 07-30-2024 Miscellaneous Notes Spoke with patient who accepted VV for tomorrow documented in this encounter [facility] 07-29-2024 History of Present illness Narrative Radiology Service Progress Note PATIENT NAME: Marjorie Graham DATE OF SERVICE: July 29, 2024 TIME: 1:05 PM PATIENT IDENTITY VERIFICATION COMPLETED USING TWO (2) IDENTIFIERS: Name and Date of confirmed by patient verbally. FALL SCREENING: Has the patient had 2 falls in the last year or 1 fall with injury or currently using an Ambulatory Assistive Device (Walker, Cane, Wheelchair, Crutches, etc.)? No PATIENT GENDER DATA: Assigned female at . status: : No status: NO. PATIENT RELEVANT IMPLANT DATA REVIEWED: Yes PATIENT PRESENTS WITH AN IMPLANTABLE OR ATTACHED INTELLIGENCE SPECIALIST: No RADIOLOGY DEPARTMENT: CT; Exam(s) Completed: Sinus PERIPHERAL IV DATA: Not applicable SIGNED BY: RT Irma(R) July 29, 2024 1:05 PM documented in this encounter [facility] 07-29-2024 Note HNO ID: [id number] Author: MERVAT MADDOX RT(R) Service: ? Author Type: Coordinating Producer Type: Progress Notes Filed: 07/29/2024 13:05 Note Text: Radiology Service Progress Note PATIENT NAME: Marjorie Graham DATE OF SERVICE: July 29, 2024 TIME: 1:05 PM PATIENT IDENTITY VERIFICATION COMPLETED USING TWO (2) IDENTIFIERS: Name and Date of confirmed by patient verbally. FALL SCREENING: Has the patient had 2 falls in the last year or 1 fall with injury or currently using an Ambulatory Assistive Device (Walker, Cane, Wheelchair, Crutches, etc.)? No PATIENT GENDER DATA: Assigned female at . status: : No status: NO. PATIENT RELEVANT IMPLANT DATA REVIEWED: Yes PATIENT PRESENTS WITH AN IMPLANTABLE OR ATTACHED INTELLIGENCE SPECIALIST: No RADIOLOGY DEPARTMENT: CT; Exam(s) Completed: Sinus PERIPHERAL IV DATA: Not applicable SIGNED BY: RT Irma(R) July 29, 2024 1:[address] [facility] 07-18-2024 History of Present illness Narrative Images from the original note were not included. SECTION OF RHINOLOGY, SINUS AND SKULL BASE SURGERY Head and Neck [facility] FOLLOW UP CLINIC NOTE CC: follow up HPI: Marjorie Graham is a 74 year old female seen today for CRS follow up. Pt was last seen on 06/20/24 where nasal endoscopy demonstrated the left side is very swollen over the medial orbital area and crusting which was cultured. CT [facility]. Pt is using Flonase and Tobramycin rinses. Pts eye is improving but still has diplopia, can now see downward, but cannot see well to the left with the left eye. Pt does have an appt with ophthalmology coming up. 06/20/2024 Culture Rare Achromobacter species ! Culture Few normal respiratory aleisha Smear Result No organisms seen Smear Result No Polymorphonuclear Leukocytes Legend: ! Abnormal SNOT-22 Nasal Score Ear/Facial Score Sleep Score Function Score Emotion Score Total Score 07/17/2024 8 2 4 5 2 21 PHYSICAL EXAM: GENERAL: No acute distress, calm and cooperative, alert and oriented. HEAD/FACE: Normocephalic, atraumatic, facial structures stable and symmetric. EYES: Extraocular movements intact. No ocular lesions noted. RESPIRATORY: Unlabored breathing on room air. Voice is strong. No stridor or other noisy breathing. NEUROLOGIC: Cranial nerves 3-12 are grossly intact. PROCEDURE NOTE: Procedure: Nasal endoscopy Indication: s/p diplopia after sinus surgery at OSH Findings: After topical application of lidocaine and Afrin sprays for anesthesia and decongestion, rigid nasal endoscopy was performed. This revealed on the left the ethmoid are patent no infection. Cannot see the left maxillary sinus, the right maxillary sinus is very small. The patient tolerated the procedure well. ASSESSMENT: Marjorie Graham is a 74 year old female with: S/p bilteral ESS by OSH with postop complications of diplopia and vertigo. Possible retrorbital fracture PLAN: Nasal endoscopy today demonstrated that there is Will get new CT sinus scan to see what is going on with the sinuses and orbits Continue tobramycin nasal rinse bid Go back on flonase Medical Decision Making: Problems: Moderate: 1+ chronic illnesses with change Data: Unique test(s) ordered: 1 Risk: Moderate: Drug management Medical Decision Making Level: 4 - Moderate By signing my name below, I, Evelio Olsen, attest that this documentation has been prepared under the direction and in the presence of Dr. Michael Tariq Electronically Signed, Jorge Goins July 18, 2024 8:53 AM I agree with the Chief Complaint, ROS, and Past Histories independently gathered by the clinical shipping support clerk and the remaining scribed note accurately describes my personal service to the patient. Disclosure: Dr. Tariq receives payments from [employer]/or [employer] for conducting educational activities and/or consulting. An [employer] and/or [employer] product may be used in your care. Dr. Tariq does not receive any money for products he/she or any other [facility] physicians prescribe or use. Dr. Tariq's choice on which product to use in your case was not influenced by his/her relationship with [employer]/or [employer] Your physician selected the product that in his or her hands is believed to be the best option for your treatment. documented in this encounter [facility] 07-18-2024 Note HNO ID: [id number] Author: MICHAEL TARIQ MD Service: ? Author Type: Physician Type: Progress Notes Filed: 08/08/2024 14:14 Note Text: SECTION OF RHINOLOGY, SINUS AND SKULL BASE SURGERY Head and Neck [facility] FOLLOW UP CLINIC NOTE CC: follow up HPI: Marjorie Graham is a 74 year old female seen today for CRS follow up. Pt was last seen on 06/20/24 where nasal endoscopy demonstrated the left side is very swollen over the medial orbital area and crusting which was cultured. CT sinus image reports have been uploaded to [facility]. Pt is using Flonase and Tobramycin rinses. Pts eye is improving but still has diplopia, can now see downward, but cannot see well to the left with the left eye. Pt does have an appt with ophthalmology coming up. 06/20/2024 Culture Rare Achromobacter species ! Culture Few normal respiratory aleisha Smear Result No organisms seen Smear Result No Polymorphonuclear Leukocytes Legend: ! Abnormal SNOT-22 Nasal Score Ear/Facial Score Sleep Score Function Score Emotion Score Total Score 07/17/2024 8 2 4 5 2 21 PHYSICAL EXAM: GENERAL: No acute distress, calm and cooperative, alert and oriented. HEAD/FACE: Normocephalic, atraumatic, facial structures stable and symmetric. EYES: Extraocular movements intact. No ocular lesions noted. RESPIRATORY: Unlabored breathing on room air. Voice is strong. No stridor or other noisy breathing. NEUROLOGIC: Cranial nerves 3-12 are grossly intact. PROCEDURE NOTE: Procedure: Nasal endoscopy Indication: s/p diplopia after sinus surgery at OSH Findings: After topical application of lidocaine and Afrin sprays for anesthesia and decongestion, rigid nasal endoscopy was performed. This revealed on the left the ethmoid are patent no infection. Cannot see the left maxillary sinus, the right maxillary sinus is very small. The patient tolerated the procedure well. ASSESSMENT: Marjorie Graham is a 74 year old female with: S/p bilteral ESS by OSH with postop complications of diplopia and vertigo. Possible retrorbital fracture PLAN: Nasal endoscopy today demonstrated that there is Will get new CT sinus scan to see what is going on with the sinuses and orbits Continue tobramycin nasal rinse bid Go back on flonase Medical Decision Making: Problems: Moderate: 1+ chronic illnesses with change Data: Unique test(s) ordered: 1 Risk: Moderate: Drug management Medical Decision Making Level: 4 - Moderate By signing my name below, I, Evelio Olsen, attest that this documentation has been prepared under the direction and in the presence of Dr. Michael Tariq Electronically Signed, Jorge Goins July 18, 2024 8:53 AM I agree with the Chief Complaint, ROS, and Past Histories independently gathered by the clinical shipping support clerk and the remaining scribed note accurately describes my personal service to the patient. Disclosure: Dr. Tariq receives payments from [employer]/or [employer] for conducting educational activities and/or consulting. An [employer] and/or [employer] product may be used in your care. Dr. Tariq does not receive any money for products he/she or any other [facility] physicians prescribe or use. Dr. Tariq's choice on which product to use in your case was not influenced by his/her relationship with [employer]/or [employer]. Your physician selected the product that in his or her hands is believed to be the best option for your treatment. [facility] 07-11-2024 Telephone encounter Note Patient [employer] message requesting the following refill Refill(s) Requested: Requested Prescriptions Pending Prescriptions Disp Refills metFORMIN ER (GLUCOPHAGE XR) 500 mg 24 hr tablet 120 tablet 11 Sig: Taking total of 4 pills per day but in divided doses omeprazole (PRILOSEC) 40 mg capsule 30 capsule 11 Sig: Take 1 capsule by mouth once daily. ALLERGIES Allergen Reactions Aspirin Tinnitus, hearing loss AD when on mary jo doses. Is able to take ASA now without any reaction. Ciprofloxacin Hives reports hives now after completing cipro 06/23/2019 Metformin GI Upset made her ill; stomach upset with pain and diarrhea- has taken since with no issue Penicillins Unknown hives Sulfa (Sulfonamide * Unknown hives Zocor [Simvastatin] [employer] (home) [phone] (cell) Last Office Visit Date: 06/27/2024 Last [facility] Visit: Visit date not found Future Appointment: 09/26/2024 The patients preferred pharmacy has been captured for this encounter? yes Request is for script(s) to be escript to pharmacy. Casie Barraza LPN [facility] 07-11-2024 Miscellaneous Notes Patient [employer] message requesting the following refill Refill(s) Requested: Requested Prescriptions Pending Prescriptions Disp Refills metFORMIN ER (GLUCOPHAGE XR) 500 mg 24 hr tablet 120 tablet 11 Sig: Taking total of 4 pills per day but in divided doses omeprazole (PRILOSEC) 40 mg capsule 30 capsule 11 Sig: Take 1 capsule by mouth once daily. ALLERGIES Allergen Reactions Aspirin Tinnitus, hearing loss AD when on mary jo doses. Is able to take ASA now without any reaction. Ciprofloxacin Hives reports hives now after completing cipro 06/23/2019 Metformin GI Upset made her ill; stomach upset with pain and diarrhea- has taken since with no issue Penicillins Unknown hives Sulfa (Sulfonamide * Unknown hives Zocor [Simvastatin] [employer] (home) [phone] (cell) Last Office Visit Date: 06/27/2024 Last [facility] Visit: Visit date not found Future Appointment: 09/26/2024 The patients preferred pharmacy has been captured for this encounter? yes Request is for script(s) to be escript to pharmacy. Casie Barraza LPN documented in this encounter [facility] 07-09-2024 Telephone encounter Note Patient is scheduled as recommended . [facility] 07-09-2024 Miscellaneous Notes Patient is scheduled as recommended . documented in this encounter [facility] 06-30-2024 History of Present illness Narrative Radiology Service Progress Note PATIENT NAME: Marjorie Graham DATE OF SERVICE: June 30, 2024 TIME: 2:08 PM PATIENT IDENTITY VERIFICATION COMPLETED USING TWO (2) IDENTIFIERS: Name and Date of confirmed by patient verbally. FALL SCREENING: Has the patient had 2 falls in the last year or 1 fall with injury or currently using an Ambulatory Assistive Device (Walker, Cane, Wheelchair, Crutches, etc.)? No PATIENT GENDER DATA: Female. status: : No status: NO. PATIENT RELEVANT IMPLANT DATA REVIEWED: Not Applicable PATIENT PRESENTS WITH AN IMPLANTABLE OR ATTACHED INTELLIGENCE SPECIALIST: No RADIOLOGY DEPARTMENT: Mammography PERIPHERAL IV DATA: Not applicable SIGNED BY: Sal Hurto Erin June 30, 2024 2:08 PM documented in this encounter [facility] 06-30-2024 Note HNO ID: [id number] Author: DANTE SANDERSON Mammo Tech Service: ? Author Type: Coordinating Producer Type: Progress Notes Filed: 06/30/2024 14:09 Note Text: Radiology Service Progress Note PATIENT NAME: Marjorie Graham DATE OF SERVICE: June 30, 2024 TIME: 2:08 PM PATIENT IDENTITY VERIFICATION COMPLETED USING TWO (2) IDENTIFIERS: Name and Date of confirmed by patient verbally. FALL SCREENING: Has the patient had 2 falls in the last year or 1 fall with injury or currently using an Ambulatory Assistive Device (Walker, Cane, Wheelchair, Crutches, etc.)? No PATIENT GENDER DATA: Female. status: : No status: NO. PATIENT RELEVANT IMPLANT DATA REVIEWED: Not Applicable PATIENT PRESENTS WITH AN IMPLANTABLE OR ATTACHED INTELLIGENCE SPECIALIST: No RADIOLOGY DEPARTMENT: Mammography PERIPHERAL IV DATA: Not applicable SIGNED BY: Josemanuel Hurt June 30, 2024 2:[address] [facility] 06-27-2024 Instructions Fifi Green MD - 06/27/2024 5:29 PM EST - Increase Jardiance dosage to 25 mg daily; prescription sent to [facility] in [place] with 5 refills. - Refill for Myrbetriq 90-day supply with 3 refills sent to [facility] in [place]. - Take Celebrex 200 mg twice daily as needed for fibromyalgia pain. - Take Tylenol #3 twice daily as needed for fibromyalgia flare-ups; prescription for 14 pills sent to [facility]. - Take Prednisone 5 mg twice daily as needed for fibromyalgia flare-ups; prescription for 14 pills sent to [facility]. - Monitor blood sugar levels regularly and record the readings. - Maintain a balanced diet, avoiding high-sugar foods, and stay hydrated. - Next follow-up appointment in August. - Complete lab tests for A1c, metabolic panel, and CBC in August. documented in this encounter [facility] 06-27-2024 History of Present illness Narrative This note was created using [employer]. Subjective SUBJECTIVE: Marjorie Graham is a 73 year old year old lady here today for 3 month follow up appointment for review of medical conditions. - Saw Dr. García - On tobramicin to treat sinus/ethmoid region - Hoping that if infection clears the eye will heal more quickly - Still seeing double vision Fibro - 2 flare-ups - needs something to get through them, couldn't walk, extreme pain - Celebrex not currently helping - Out of tylenol 3s and steroids T2D - Jardiance - helping but wouldn't let her refill it until she saw you Bladder - Myrbetric helping but also wouldn't fill till she came in Thyroid - stable, doing well, taking medications as prescribed HTN - stable, doing well, taking medications as prescribed Marjorie Graham is a 73-year-old female with a history of fibromyalgia, DM, and recent orbital infection, presenting for medication refills and management of fibromyalgia flare-ups. Marjorie reports a recent severe fibromyalgia flare-up that was not alleviated by her current Celebrex 200 mg daily regimen. She used leftover Tylenol #3 and prednisone 20 mg (cut into 10 mg doses) from a previous prescription, which provided relief. She still has approximately 8-10 tablets of each medication remaining. The flare-up lasted about 3 days, during which she took Tylenol #3 twice daily. She denies current issues with sleep and is able to maintain adequate hydration and nutrition. She also requests refills for Myrbetriq and Jardiance. She is tolerating Jardiance well and reports that it has been effective in managing her blood glucose levels. Her most recent HbA1c in May showed improvement but remains elevated due to a current orbital infection. She denies any recent adjustments to her Jardiance dosage. Marjorie is currently under the care of Dr. Irene García for an orbital infection and has been prescribed a topical antibiotic, which she started today. She reports difficulty with depth perception and is not driving due to the infection. She was also seen by Dr. Benitez in [place] on Sunday. She denies any recent episodes of vertigo and reports that her sleep is not currently affected. She recently recovered from a stomach flu that occurred on . PAST MEDICAL HISTORY Diagnosis Date Abdominal pain, epigastric Abdominal pain, left lower quadrant Acute gastritis without mention of hemorrhage Allergic rhinitis, cause unspecified Allergic rhinitis Diaphragmatic hernia without mention of obstruction or gangrene DM type 2 (diabetes mellitus, type 2) (HCC) Esophageal reflux 07/24/2005 Esophagitis, unspecified Intestinal disaccharidase deficiencies and disaccharide malabsorption Malignant neoplasm of breast (female), unspecified site 07/02/1985 Breast cancer Morbid obesity (HCC) Myalgia and myositis, unspecified Obesity (BMI 30-39.9) Pure hypercholesterolemia Unspecified constipation Unspecified essential hypertension Unspecified hypothyroidism Unspecified sinusitis (chronic) Chronic sinusitis Urge incontinence of urine Current Outpatient Medications Medication Sig tobramycin 20 mg (CPD) Use 1 Each in the nose two times a day. Comments for compounding pharmacy: tobramycin 20mg - into 8oz saline. Perform irrigations twice daily rosuvastatin (CRESTOR) 10 mg tablet Take 1 tablet by mouth once daily. beta-carotene,A,-vits C,E/mins (OCUVITE ORAL) Take 1 capsule by mouth once daily. empagliflozin (JARDIANCE) 10 mg tablet Take 1 tablet by mouth once daily. Take 1 tablet once daily in the morning blood sugar diagnostic (BLOOD GLUCOSE TEST) test strip Test blood sugar(s) 1 times daily. Dx: Type 2 DM - Uncontrolled E11.65 Insulin: No Lancets Test blood suga(s) 1 times daily. Dx: Type 2 DM - Uncontrolled E11.65 Insulin: No. Also dispense a lancet pen buPROPion XL (WELLBUTRIN XL) 300 mg 24 hr tablet Take 1 tablet by mouth once daily. levothyroxine (SYNTHROID) 112 mcg tablet Take 1 tablet by mouth once daily. Take on empty stomach. For thyroid losartan-hydroCHLOROthiazide (HYZAAR) 100-25 mg per tablet Take 1 tablet by mouth once daily. mirabegron (MYRBETRIQ) 25 mg Tb24 Take 1 tablet by mouth once daily. ondansetron orally disintegrating (ZOFRAN ODT) 4 mg disintegrating tablet Take 1 tablet by mouth every 8 hours as needed for nausea/vomiting. scopolamine (TRANSDERM-SCOP) patch 1.5 mg/72 hr (delivers 1 mg over 3 days) Apply 1 Patch as directed every 72 hours. Apply patch to skin behind ear 4hrs prior to travel. benzonatate (TESSALON PERLES) 100 mg capsule Take 1-2 capsules by mouth three times a day as needed. albuterol (PROVENTIL) 2.5 mg /3 mL (0.083 %) nebulizer solution Use 3 mL via nebulizer every 4 hours as needed for wheezing/shortness of breath. meclizine (ANTIVERT) 25 mg tab TAKE ONE TABLET BY MOUTH EVERY 6 HOURS NEEDED FOR DIZZINESS albuterol HFA (VENTOLIN HFA) 90 mcg/actuation inhaler Inhale 2 Puffs as instructed every 4 hours as needed. hyoscyamine (LEVSIN) 0.125 mg tablet Take 0.125 mg by mouth every 6 hours as needed. metFORMIN ER (GLUCOPHAGE XR) 500 mg 24 hr tablet Taking total of 4 pills per day but in divided doses omeprazole (PRILOSEC) 40 mg capsule Take 1 capsule by mouth once daily. phenazopyridine (PYRIDIUM) 200 mg tablet Take 1 tablet by mouth three times daily as needed. fluticasone (FLONASE) 50 mcg/actuation nasal spray Use 2 Sprays in each nostril once daily. As directed dicyclomine (BENTYL) 10 mg capsule Take 1 capsule by mouth twice daily as needed. montelukast (SINGULAIR) 10 mg tablet Take 1 tablet by mouth daily at bedtime. celecoxib (CELEBREX) 200 mg capsule TAKE 1 TABLET BY MOUTH ONCE A DAY WITH FOOD multivitamin tablet Take 1 tablet by mouth once daily. Cholecalciferol, Vitamin D3, (VITAMIN D) 1,000 unit cap Take 1 capsule by mouth once daily. cetirizine (ZYRTEC) 10 mg tablet Take 10 mg by mouth once daily. acetaminophen 500 mg tablet Take 500 mg by mouth every 6 hours as needed. No current facility-administered medications for this visit. Review of Systems Objective BP 118/72 Pulse 74 Temp 36.3 C (97.3 F) Resp 16 Wt 82.3 kg (181 lb 7 oz) SpO2 98% BMI 33.19 kg/m Physical Exam Constitutional: Appearance: Normal appearance. HENT: Head: Normocephalic. Eyes: Conjunctiva/sclera: Conjunctivae normal. Comments: Has tape on left lens of glasses to help with diplopia Cardiovascular: Rate and Rhythm: Normal rate and regular rhythm. Heart sounds: Normal heart sounds. Pulmonary: Effort: Pulmonary effort is normal. Breath sounds: Normal breath sounds. Skin: General: Skin is warm and dry. Neurological: General: No focal deficit present. Mental Status: She is alert and oriented to person, place, and time. Psychiatric: Mood and Affect: Mood normal. Behavior: Behavior normal. Thought Content: Thought content normal. Judgment: Judgment normal. Assessment and Plan # Type 2 diabetes mellitus with hyperglycemia, without long-term current use of insulin (HCC) (E11.65) - Recent A1c in May showed improvement but remains elevated due to ongoing infection. - Increased Jardiance to 25 mg daily; patient tolerating well. - Ordered quarterly metabolic panel, A1c, and CBC to monitor glycemic control. # Fibromyalgia (M79.7) - Recent severe flare-ups; Celebrex 200 mg daily not providing adequate relief. - Prescribed Tylenol #3, 1-2 times daily as needed for acute flare-ups, 14 pills dispensed. - Prescribed Prednisone 5 mg, 1-2 times daily as needed, 14 pills dispensed. - Advised to monitor for side effects and maintain hydration and protein intake during flare-ups. # Urge incontinence of urine (N39.41) - Clinically stable on Myrbetriq; refilled 90-day supply with 3 refills. 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 - Follow-up with ENT Dr. Michael Tariq in [place]. # Diplopia (H53.2) - Under care of neuro-parking patroller Dr. Irene García; additional neuro-ophthalmology referral canceled as current management deemed satisfactory. - Continue current treatment plan. # Primary hypertension (I10) - Blood pressure well-controlled. - Continue current antihypertensive regimen. # Acquired hypothyroidism (E03.9) - Stable thyroid function tests; no current symptoms indicating imbalance. - Annual thyroid function tests deemed sufficient unless symptoms arise. TEACHING PROVIDER (Physician/PA/FIRE CONTROL MECHANIC) NOTE OF PERSONAL INVOLVEMENT IN CARE: I have personally seen and examined the patient and performed the medical decision-making components. I have reviewed the Medical Student's documentation and verified the findings in the note as written. Any additions or changes are noted in bold/italics. Signature: Fifi Green Date: 07/28/2024 Time: 12:47 AM Fifi Green MD documented in this encounter [facility] 06-27-2024 Note HNO ID: [id number] Author: FIFI GREEN MD Service: ? Author Type: Physician Type: Progress Notes Filed: 07/28/2024 00:47 Note Text: This note was created using [employer]. Subjective SUBJECTIVE: Marjorie Graham is a 73 year old year old lady here today for 3 month follow up appointment for review of medical conditions. - Saw Dr. García - On tobramicin to treat sinus/ethmoid region - Hoping that if infection clears the eye will heal more quickly - Still seeing double vision Fibro - 2 flare-ups - needs something to get through them, couldn't walk, extreme pain - Celebrex not currently helping - Out of tylenol 3s and steroids T2D - Jardiance - helping but wouldn't let her refill it until she saw you Bladder - Myrbetric helping but also wouldn't fill till she came in Thyroid - stable, doing well, taking medications as prescribed HTN - stable, doing well, taking medications as prescribed Marjorie Graham is a 73-year-old female with a history of fibromyalgia, DM, and recent orbital infection, presenting for medication refills and management of fibromyalgia flare-ups. Marjorie reports a recent severe fibromyalgia flare-up that was not alleviated by her current Celebrex 200 mg daily regimen. She used leftover Tylenol #3 and prednisone 20 mg (cut into 10 mg doses) from a previous prescription, which provided relief. She still has approximately 8-10 tablets of each medication remaining. The flare-up lasted about 3 days, during which she took Tylenol #3 twice daily. She denies current issues with sleep and is able to maintain adequate hydration and nutrition. She also requests refills for Myrbetriq and Jardiance. She is tolerating Jardiance well and reports that it has been effective in managing her blood glucose levels. Her most recent HbA1c in May showed improvement but remains elevated due to a current orbital infection. She denies any recent adjustments to her Jardiance dosage. Marjorie is currently under the care of Dr. Irene García for an orbital infection and has been prescribed a topical antibiotic, which she started today. She reports difficulty with depth perception and is not driving due to the infection. She was also seen by Dr. Benitez in [place] on Sunday. She denies any recent episodes of vertigo and reports that her sleep is not currently affected. She recently recovered from a stomach flu that occurred on . PAST MEDICAL HISTORY Diagnosis Date Abdominal pain, epigastric Abdominal pain, left lower quadrant Acute gastritis without mention of hemorrhage Allergic rhinitis, cause unspecified Allergic rhinitis Diaphragmatic hernia without mention of obstruction or gangrene DM type 2 (diabetes mellitus, type 2) (HCC) Esophageal reflux 07/24/2005 Esophagitis, unspecified Intestinal disaccharidase deficiencies and disaccharide malabsorption Malignant neoplasm of breast (female), unspecified site 07/02/1985 Breast cancer Morbid obesity (HCC) Myalgia and myositis, unspecified Obesity (BMI 30-39.9) Pure hypercholesterolemia Unspecified constipation Unspecified essential hypertension Unspecified hypothyroidism Unspecified sinusitis (chronic) Chronic sinusitis Urge incontinence of urine Current Outpatient Medications Medication Sig tobramycin 20 mg (CPD) Use 1 Each in the nose two times a day. Comments for compounding pharmacy: tobramycin 20mg - into 8oz saline. Perform irrigations twice daily rosuvastatin (CRESTOR) 10 mg tablet Take 1 tablet by mouth once daily. beta-carotene,A,-vits C,E/mins (OCUVITE ORAL) Take 1 capsule by mouth once daily. empagliflozin (JARDIANCE) 10 mg tablet Take 1 tablet by mouth once daily. Take 1 tablet once daily in the morning blood sugar diagnostic (BLOOD GLUCOSE TEST) test strip Test blood sugar(s) 1 times daily. Dx: Type 2 DM - Uncontrolled E11.65 Insulin: No Lancets Test blood suga(s) 1 times daily. Dx: Type 2 DM - Uncontrolled E11.65 Insulin: No. Also dispense a lancet pen buPROPion XL (WELLBUTRIN XL) 300 mg 24 hr tablet Take 1 tablet by mouth once daily. levothyroxine (SYNTHROID) 112 mcg tablet Take 1 tablet by mouth once daily. Take on empty stomach. For thyroid losartan-hydroCHLOROthiazide (HYZAAR) 100-25 mg per tablet Take 1 tablet by mouth once daily. mirabegron (MYRBETRIQ) 25 mg Tb24 Take 1 tablet by mouth once daily. ondansetron orally disintegrating (ZOFRAN ODT) 4 mg disintegrating tablet Take 1 tablet by mouth every 8 hours as needed for nausea/vomiting. scopolamine (TRANSDERM-SCOP) patch 1.5 mg/72 hr (delivers 1 mg over 3 days) Apply 1 Patch as directed every 72 hours. Apply patch to skin behind ear 4hrs prior to travel. benzonatate (TESSALON PERLES) 100 mg capsule Take 1-2 capsules by mouth three times a day as needed. albuterol (PROVENTIL) 2.5 mg /3 mL (0.083 %) nebulizer solution Use 3 mL via nebulizer every 4 hours as needed for wheezing/shortness of colin (more content not included)... [facility] 06-26-2024 Telephone encounter Note Outside images in [facility] from 04/2024 paperwork was sent to scanning last week. Chantell Serrano MA [facility] 06-26-2024 Miscellaneous Notes Outside images in [facility] from 04/2024 paperwork was sent to scanning last week. Chantell Serrano MA documented in this encounter [facility] 06-20-2024 History of Present illness Narrative Images from the original note were not included. SECTION OF RHINOLOGY, SINUS AND SKULL BASE SURGERY Head and Neck [facility] INITIAL VISIT NOTE This patient is a new patient. They are seen at the request of: Fifi Green for 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 (ICD-10-CM)] (Bilateral maxillary antrostomies, bilateral frontal sinusotomy per operative reports on file); History of ethmoidectomy [Z98.890 (ICD-10-CM)]; Diplopia [H53.2 (ICD-10-CM)] (Reported air in orbit on left s/p sinus surgery--suspected orbital fracture. CT scan done at [facility] nonconfirmatory) [address] [facility] [place] [address] CONSULT Patient confirms that consultation was verbally initiated by the specified requesting physician. Final recommendations will be communicated back to the requesting physician through the shared medical record or written communication (sent by US mail). CC: postop complication HPI: Marjorie Graham is a 73 year old female presenting for evaluation of sinuses. Saw Internal Medicine in [place] on 01/23/24 where they note a CT that showed paranasal sinusitis, mucosal thickening, unable to locate CT. Given Augmentin for 10 days. 12/24 saw Internal and given, doxycycline and prednisone. Pt had surgery on 04/01/24 with Meghna Saavedra, this was bilateral endoscopic sinus surgery and ET dilation. Right after surgery before she left she had double vision and dizziness was sent to ED and had CT scan (not sinuses) and MRI to determine if there was a stroke. 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 Then a CT sinus scan was done and was told there was a fracture of the sinuse (pt does not bring any images today, the only report available is the MRI on 04/02/24 which indicated there was no acute ishemia and foci of abnormal signal on FLAIR imaging raise possibility of inflammatory process vs demyelinating disease (per report). Sinuses indicated limited views. Pt is still very nasally. Pt had vertigo after surgery which consists of both spinning and off balance. This resolved in the hospital. Pt can move her eyes okay. Pt has never had any postop care for sinuses. No data to display PAST MEDICAL HISTORY: PAST MEDICAL HISTORY Diagnosis Date Abdominal pain, epigastric Abdominal pain, left lower quadrant Acute gastritis without mention of hemorrhage Allergic rhinitis, cause unspecified Allergic rhinitis Diaphragmatic hernia without mention of obstruction or gangrene DM type 2 (diabetes mellitus, type 2) (HCC) Esophageal reflux 07/24/2005 Esophagitis, unspecified Intestinal disaccharidase deficiencies and disaccharide malabsorption Malignant neoplasm of breast (female), unspecified site 07/02/1985 Breast cancer Morbid obesity (HCC) Myalgia and myositis, unspecified Obesity (BMI 30-39.9) Pure hypercholesterolemia Unspecified constipation Unspecified essential hypertension Unspecified hypothyroidism Unspecified sinusitis (chronic) Chronic sinusitis Urge incontinence of urine PAST SURGICAL HISTORY: PAST SURGICAL HISTORY Procedure Laterality Date APPENDECTOMY 1964 ARTHRP KNE CONDYLE&PLATU MEDIAL&LAT COMPARTMENTS Right 03/21/2018 ARTHRP KNE CONDYLE&PLATU MEDIAL&LAT COMPARTMENTS Left 09/05/2018 BIOPSY BREAST OPEN INCISIONAL Bx of breast, incisional BREAST BIOPSY CORE 05/11/06 U/S needle core right breast 11:30am CHOLECYSTECTOMY 1968 Cholecystectomy at age 17 COLONOSCOPY FLX DX W/COLLJ SPEC WHEN PFRMD 02/25/2002 Colonoscopy COLONOSCOPY FLX DX W/COLLJ SPEC WHEN PFRMD 05/31/07 EGD TRANSORAL BIOPSY SINGLE/MULTIPLE 09/02/10 EGD TRANSORAL BIOPSY SINGLE/MULTIPLE 07/19/11 ESOPHAGOGASTRODUODENOSCOPY TRANSORAL DIAGNOSTIC 08/19/2008 EGD ESOPHAGOGASTRODUODENOSCOPY TRANSORAL DIAGNOSTIC 08/13/15 EGD EXC TUMOR SOFT TISS NECK/THORAX SUBFASCIAL <5CM 11-18-07 lipoma of neck HYSTERECTOMY HX 06/15/11 [facility] LAMINECTOMY W/O FFD 07/03 VERT SEG LUMBAR 1989 MASTECTOMY 1986 left PAST SURGICAL HISTORY OF 2008 right knee arthroscopic surgery for torn meniscus SALPINGO-OOPHORECTOMY COMPL/PRTL UNI/BI SPX 1975 LEFT ---ECTOPIC FAMILY HISTORY Problem Relation Age of Onset Cancer Mother lung Heart Father Diabetes Maternal Grandmother Colon Cancer Other MATERNAL UNCLES Social History Tobacco Use Smoking status: Never Smokeless tobacco: Never Vaping Use Vaping status: Never Used Substance Use Topics Alcohol use: No Comment: less than one drink per week Drug use: No MEDICATIONS: Current Outpatient Medications Medication Sig rosuvastatin (CRESTOR) 10 mg tablet Take 1 tablet by mouth once daily. beta-carotene,A,-vits C,E/mins (OCUVITE ORAL) Take 1 capsule by mouth once daily. empagliflozin (JARDIANCE) 10 mg tablet Take 1 tablet by mouth once daily. Take 1 tablet once daily in the morning blood sugar diagnostic (BLOOD GLUCOSE TEST) test strip Test blood sugar(s) 1 times daily. Dx: Type 2 DM - Uncontrolled E11.65 Insulin: No Lancets Test blood suga(s) 1 times daily. Dx: Type 2 DM - Uncontrolled E11.65 Insulin: No. Also dispense a lancet pen buPROPion XL (WELLBUTRIN XL) 300 mg 24 hr tablet Take 1 tablet by mouth once daily. levothyroxine (SYNTHROID) 112 mcg tablet Take 1 tablet by mouth once daily. Take on empty stomach. For thyroid losartan-hydroCHLOROthiazide (HYZAAR) 100-25 mg per tablet Take 1 tablet by mouth once daily. mirabegron (MYRBETRIQ) 25 mg Tb24 Take 1 tablet by mouth once daily. ondansetron orally disintegrating (ZOFRAN ODT) 4 mg disintegrating tablet Take 1 tablet by mouth every 8 hours as needed for nausea/vomiting. scopolamine (TRANSDERM-SCOP) patch 1.5 mg/72 hr (delivers 1 mg over 3 days) Apply 1 Patch as directed every 72 hours. Apply patch to skin behind ear 4hrs prior to travel. benzonatate (TESSALON PERLES) 100 mg capsule Take 1-2 capsules by mouth three times a day as needed. albuterol (PROVENTIL) 2.5 mg /3 mL (0.083 %) nebulizer solution Use 3 mL via nebulizer every 4 hours as needed for wheezing/shortness of breath. meclizine (ANTIVERT) 25 mg tab TAKE ONE TABLET BY MOUTH EVERY 6 HOURS NEEDED FOR DIZZINESS albuterol HFA (VENTOLIN HFA) 90 mcg/actuation inhaler Inhale 2 Puffs as instructed every 4 hours as needed. hyoscyamine (LEVSIN) 0.125 mg tablet Take 0.125 mg by mouth every 6 hours as needed. metFORMIN ER (GLUCOPHAGE XR) 500 mg 24 hr tablet Taking total of 4 pills per day but in divided doses omeprazole (PRILOSEC) 40 mg capsule Take 1 capsule by mouth once daily. phenazopyridine (PYRIDIUM) 200 mg tablet Take 1 tablet by mouth three times daily as needed. fluticasone (FLONASE) 50 mcg/actuation nasal spray Use 2 Sprays in each nostril once daily. As directed dicyclomine (BENTYL) 10 mg capsule Take 1 capsule by mouth twice daily as needed. montelukast (SINGULAIR) 10 mg tablet Take 1 tablet by mouth daily at bedtime. celecoxib (CELEBREX) 200 mg capsule TAKE 1 TABLET BY MOUTH ONCE A DAY WITH FOOD multivitamin tablet Take 1 tablet by mouth once daily. Cholecalciferol, Vitamin D3, (VITAMIN D) 1,000 unit cap Take 1 capsule by mouth once daily. cetirizine (ZYRTEC) 10 mg tablet Take 10 mg by mouth once daily. acetaminophen 500 mg tablet Take 500 mg by mouth every 6 hours as needed. No current facility-administered medications for this visit. ALLERGIES: ALLERGIES Allergen Reactions Aspirin Tinnitus, hearing loss AD when on mary jo doses. Is able to take ASA now without any reaction. Ciprofloxacin Hives reports hives now after completing cipro 06/23/2019 Metformin GI Upset made her ill; stomach upset with pain and diarrhea- has taken since with no issue Penicillins Unknown hives Sulfa (Sulfonamide * Unknown hives Zocor [Simvastatin] myalgias PHYSICAL EXAM: GENERAL: No acute distress, calm and cooperative, alert and oriented. HEAD/FACE: Normocephalic, atraumatic, facial structures stable and symmetric. EYES: Extraocular movements intact. No ocular lesions noted. EARS: No auricular deformity noted. ORAL CAVITY/OROPHARYNX: No mucosal lesions noted, tongue/uvula midline, tonsils unremarkable. NECK: No obvious masses, full range of motion present. RESPIRATORY: Unlabored breathing on room air. Voice is strong. No stridor or other noisy breathing. NEUROLOGIC: Cranial nerves 3-12 are grossly intact. PROCEDURE NOTE: Procedure: Nasal endoscopy Indication: s/p bilateral ESS and ETD Findings: After topical application of lidocaine and Afrin sprays for anesthesia and decongestion, rigid nasal endoscopy was performed. This revealed on the left side is inflamed, dry crusting an yellow crusting. The patient tolerated the procedure well. ASSESSMENT: Marjorie Graham is a 73 year old female with: S/p bilteral ESS by OSH with postop complications of diplopia and vertigo. Possible retrorbital fracture PLAN: Nasal endoscopy today demonstrated the left side is very swollen over the medial orbital area and crusting which was cultured. Sinus culture, plan to put patient on both oral and topical antibiotics Awaiting the imaging reports Continue following with current neuropthalmologist Follow up in 1 mos Can do saline rinses (fracture should be healed, if develops any eye swelling should stop immediately) 7. Resume flonase Attending Note I have personally performed a face to face assessment of the patient and have reviewed the GARRISON note. I performed a substantive portion of the visit including all aspects of the following. My fall findings include: History, Phyical exam, endoscopy, and Medical/Surgical decision making. Assessment and Plan are same as transcribed data above. Other additions or changes: None Signature: Michael Tariq MD Signature: Michael Tariq MD Date: 06/20/2024 Time: 10:28 AM Medical Decision Making: Problems: Moderate: 1+ chronic illnesses with change Data: Unique test(s) ordered: 1 Risk: Moderate: Drug management Medical Decision Making Level: 4 - Moderate By signing my name below, I, Evelio Olsen, attest that this documentation has been prepared under the direction and in the presence of Dr. Michael Tariq Electronically Signed, Jorge Goins June 19, 2024 9:54 AM I agree with the Chief Complaint, ROS, and Past Histories independently gathered by the clinical shipping support clerk and the remaining scribed note accurately describes my personal service to the patient. Disclosure: Dr. Tariq receives payments from [employer] and/or [employer] for conducting educational activities and/or consulting. An [employer] and/or [employer] product may be used in your care. Dr. Tariq does not receive any money for products he/she or any other [facility] physicians prescribe or use. Dr. Tariq's choice on which product to use in your case was not influenced by his/her relationship with [employer]/or [employer]. Your physician selected the product that in his or her hands is believed to be the best option for your treatment. documented in this encounter [facility] 06-20-2024 Note HNO ID: [id number] Author: MICHAEL TARIQ MD Service: ? Author Type: Physician Type: Progress Notes Filed: 07/25/2024 11:12 Note Text: SECTION OF RHINOLOGY, SINUS AND SKULL BASE SURGERY Head and Neck [facility] INITIAL VISIT NOTE This patient is a new patient. They are seen at the request of: Fifi Green for 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 (ICD-10-CM)] (Bilateral maxillary antrostomies, bilateral frontal sinusotomy per operative reports on file); History of ethmoidectomy [Z98.890 (ICD-10-CM)]; Diplopia [H53.2 (ICD-10-CM)] (Reported air in orbit on left s/p sinus surgery--suspected orbital fracture. CT scan done at [facility] nonconfirmatory) [address] [facility] [address] CONSULT Patient confirms that consultation was verbally initiated by the specified requesting physician. Final recommendations will be communicated back to the requesting physician through the shared medical record or written communication (sent by US mail). CC: postop complication HPI: Marjorie Graham is a 73 year old female presenting for evaluation of sinuses. Saw Internal Medicine in [place] on 01/23/24 where they note a CT that showed paranasal sinusitis, mucosal thickening, unable to locate CT. Given Augmentin for 10 days. 12/24 saw Internal and given, doxycycline and prednisone. Pt had surgery on 04/01/24 with Meghna Saavedra, this was bilateral endoscopic sinus surgery and ET dilation. Right after surgery before she left she had double vision and dizziness was sent to ED and had CT scan (not sinuses) and MRI to determine if there was a stroke. 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 Then a CT sinus scan was done and was told there was a fracture of the sinuse (pt does not bring any images today, the only report available is the MRI on 04/02/24 which indicated there was no acute ishemia and foci of abnormal signal on FLAIR imaging raise possibility of inflammatory process vs demyelinating disease (per report). Sinuses indicated limited views. Pt is still very nasally. Pt had vertigo after surgery which consists of both spinning and off balance. This resolved in the hospital. Pt can move her eyes okay. Pt has never had any postop care for sinuses. No data to display PAST MEDICAL HISTORY: PAST MEDICAL HISTORY Diagnosis Date Abdominal pain, epigastric Abdominal pain, left lower quadrant Acute gastritis without mention of hemorrhage Allergic rhinitis, cause unspecified Allergic rhinitis Diaphragmatic hernia without mention of obstruction or gangrene DM type 2 (diabetes mellitus, type 2) (HCC) Esophageal reflux 07/24/2005 Esophagitis, unspecified Intestinal disaccharidase deficiencies and disaccharide malabsorption Malignant neoplasm of breast (female), unspecified site 07/02/1985 Breast cancer Morbid obesity (HCC) Myalgia and myositis, unspecified Obesity (BMI 30-39.9) Pure hypercholesterolemia Unspecified constipation Unspecified essential hypertension Unspecified hypothyroidism Unspecified sinusitis (chronic) Chronic sinusitis Urge incontinence of urine PAST SURGICAL HISTORY: PAST SURGICAL HISTORY Procedure Laterality Date APPENDECTOMY 1964 ARTHRP KNE CONDYLEANDPLATU MEDIALANDLAT COMPARTMENTS Right 03/21/2018 ARTHRP KNE CONDYLEANDPLATU MEDIALANDLAT COMPARTMENTS Left 09/05/2018 BIOPSY BREAST OPEN INCISIONAL Bx of breast, incisional BREAST BIOPSY CORE 05/11/06 U/S needle core right breast 11:30am CHOLECYSTECTOMY 1968 Cholecystectomy at age 17 COLONOSCOPY FLX DX W/COLLJ SPEC WHEN PFRMD 02/25/2002 Colonoscopy COLONOSCOPY FLX DX W/COLLJ SPEC WHEN PFRMD 05/31/07 EGD TRANSORAL BIOPSY SINGLE/MULTIPLE 09/02/10 EGD TRANSORAL BIOPSY SINGLE/MULTIPLE 07/19/11 ESOPHAGOGASTRODUODENOSCOPY TRANSORAL DIAGNOSTIC 08/19/2008 EGD ESOPHAGOGASTRODUODENOSCOPY TRANSORAL DIAGNOSTIC 08/13/15 EGD EXC TUMOR SOFT TISS NECK/THORAX SUBFASCIAL <5CM 11-18-07 lipoma of neck HYSTERECTOMY HX 06/15/11 [facility] LAMINECTOMY W/O FFD 1/2 VERT SEG LUMBAR 1989 MASTECTOMY 1986 left PAST SURGICAL HISTORY OF 2008 right knee arthroscopic surgery for torn meniscus SALPINGO-OOPHORECTOMY COMPL/PRTL UNI/BI SPX 1975 LEFT ---ECTOPIC FAMILY HISTORY Problem Relation Age of Onset Cancer Mother lung Heart Father Diabetes Maternal Grandmother Colon Cancer Other MATERNAL UNCLES Social History Tobacco Use Smoking status: Never Smokeless tobacco: Never Vaping Use Vaping status: Never Used Substance Use Topics Alcohol use: No Comment: less than one drink per week Drug use: No MEDICATIONS: Current Outpatient Medications Medication Sig rosuvastatin (CRESTOR) 10 mg tablet Take 1 tablet by mouth once daily. beta-carotene,A,-vits C,E/mins (OCUVITE ORAL) Take 1 capsule by mouth once daily. empagliflozin (JARDIANCE) 10 mg tablet Take 1 ta (more content not included)... [facility] 06-19-2024 Telephone encounter Note 1st attempt to call patient to schedule Mammo screening. LVM [facility] 06-19-2024 Miscellaneous Notes 1st attempt to call patient to schedule Mammo screening. LVM Please schedule akanksha Becca Jean MA Patient calls and states that it is time for her annual screening mammogram. Patient asking for orders to be placed so that she can get this scheduled. Please review and advise, Karie Plascencia RN documented in this encounter [facility] 06-18-2024 Telephone encounter Note Please schedule akanksha Jean MA [facility] 06-16-2024 Telephone encounter Note Patient calls and states that it is time for her annual screening mammogram. Patient asking for orders to be placed so that she can get this scheduled. Please review and advise, Karie Plascencia RN [facility] 05-16-2024 Telephone encounter Note Prescription Refill Information The patient has been identified by name and date of : Yes Caregiver verified no other encounters exist for this prescription request: Yes Caregiver confirmed with patient/requestor that no other refills are due, in the near future, with this provider at this time: Yes The last office visit in the department: 03/25/24 Does the patient have a future office visit with this provider/department: Yes 06/16/24 Requested Prescriptions Pending Prescriptions Disp Refills rosuvastatin (CRESTOR) 10 mg tablet 30 tablet 11 Sig: Take 1 tablet by mouth once daily. Mara Hilario LPN May 16, 2024 4:44 PM [facility] 05-16-2024 Miscellaneous Notes Prescription Refill Information The patient has been identified by name and date of : Yes Caregiver verified no other encounters exist for this prescription request: Yes Caregiver confirmed with patient/requestor that no other refills are due, in the near future, with this provider at this time: Yes The last office visit in the department: 03/25/24 Does the patient have a future office visit with this provider/department: Yes 06/16/24 Requested Prescriptions Pending Prescriptions Disp Refills rosuvastatin (CRESTOR) 10 mg tablet 30 tablet 11 Sig: Take 1 tablet by mouth once daily. Mara Hilario LPN May 16, 2024 4:44 PM documented in this encounter [facility] 05-09-2024 Telephone encounter Note Patient is happy with what she has. [facility] 05-09-2024 Miscellaneous Notes Patient is happy with what she has. LM to call office Please see if she would like to move up her appt with Dr Tariq He has new pt openings 05/14 in and 05/27 in [place] documented in this encounter [facility] 05-09-2024 Telephone encounter Note LM to call office Please see if she would like to move up her appt with Dr Tariq He has new pt openings 05/14 in and 05/27 in [place] [facility] Work Phone: 05-02-2024 Telephone encounter Note Glad she is feeling better. Okay to monitor symptoms for now. Probably good to have a local ENT and then one at [facility] as well given complications from the procedure by Dr. Saavedar. Glafuad she has close follow up with Dr. García and that is having some improvement, even if seems minute. [facility] 05-02-2024 Miscellaneous Notes Glad she is feeling better. Okay to monitor symptoms for now. Probably good to have a local ENT and then one at [facility] as well given complications from the procedure by Dr. Saavedra. Glad she has close follow up with Dr. García and that is having some improvement, even if seems minute. Patient had appointment with Dr. García yesterday. Noting minute improvement. Expects it to take 12 or more weeks with potential eye surgery at 6 months. Patient is on cancellation list with Dr. Tariq. Patient reports she hasn't followed up with Dr. Perez but plans to since she does need an ENT. Patient reports continued sinus pressure and clear drainage but no pain. Patient reports vision remains double (Dr. García currently has it taped) and no pain. Britany Armendariz RN I agree with her about being wary about following up with Dr. Wang. Does she have follow up with Dr. García (ophtho)? She seems to be working with Dr. Esquivel even though sounds like patient did not see him for ENT evaluation. Verify if she is on a cancellation list for Dr. Tariq. Also, how are her symptoms now? Noted improved, but is she having some ongoing sinus pain, congestion, drainage? Eye symptoms (pain, double vision, etc)? Patient calls to let provider know that the antibiotic did help the sinus pain and symptoms. She is also asking for provide opinion on having a follow-up appointment with Dr. Wang the ENT that performed the sinus surgery. She reports that they called to schedule a follow-up but she is reluctant to schedule since they caused so much damage to her eye socket and vision. Patient asking if provider would recommend following up with Dr. Wang? Please review and advise, Britany Armendariz RN documented in this encounter [facility] 05-02-2024 Telephone encounter Note Patient had appointment with Dr. García yesterday. Noting minute improvement. Expects it to take 12 or more weeks with potential eye surgery at 6 months. Patient is on cancellation list with Dr. Tariq. Patient reports she hasn't followed up with Dr. Perez but plans to since she does need an ENT. Patient reports continued sinus pressure and clear drainage but no pain. Patient reports vision remains double (Dr. García currently has it taped) and no pain. Britany Armendariz RN [facility] 05-02-2024 Telephone encounter Note I agree with her about being wary about following up with Dr. Wang. Does she have follow up with Dr. García (opho)? She seems to be working with Dr. Esquivel even though sounds like patient did not see him for ENT evaluation. Verify if she is on a cancellation list for Dr. Tariq. Also, how are her symptoms now? Noted improved, but is she having some ongoing sinus pain, congestion, drainage? Eye symptoms (pain, double vision, etc)? [facility] 04-24-2024 Telephone encounter Note Patient calls to let provider know that the antibiotic did help the sinus pain and symptoms. She is also asking for provide opinion on having a follow-up appointment with Dr. Wang the ENT that performed the sinus surgery. She reports that they called to schedule a follow-up but she is reluctant to schedule since they caused so much damage to her eye socket and vision. Patient asking if provider would recommend following up with Dr. Wang? Please review and advise, Britany Armendariz RN [facility] 04-23-2024 Note [facility] HISTORY & PHYSICAL/DISCHARGE SUMMARY NAME ACCOUNT SEX AGE ADMIT DISCHARGE PT MED. RECORD# NUMBER DATE DATE TYPE GLADYS [id number] F 73 04/01/24 04/02/24 2 MARJORIE Fuad [id number] ROOM: 301MO DATE OF : 46 DICTATING PHYSICIAN: Jolynn Stokes ADMITTING DIAGNOSIS: Diplopia. CHIEF COMPLAINT: Double vision and dizziness. HISTORY OF PRESENT ILLNESS: This is a 73-year-old lady with a history of hypertension and prediabetes who was in her usual state of health. The patient had ENT surgery on April 01. Postoperatively, the patient did develop double vision and developed a spinning episode with severe dizziness, and was sent to the emergency room for evaluation. In the emergency room, the patient did have vertigo and she had persistent double vision. Evaluation with CT was negative. Neurological exam was not revealing, and laboratory data was unremarkable. We contacted Tele Stroke, and they did recommend the patient have an MRI and stroke workup and consider it as postoperative complication. The patient did get medication for ENT surgery, which may be having some of those affects on her, but I doubt with the double vision. When I interviewed the patient myself, she has persistent double vision. The double vision field does extend quite widely, and it started to show up in about a distance of almost 1 foot from her eyes and it started in the center to the periphery. The patient denied any headache. The patient had no other neurological conditions in the past, which could be similar. She had no strokes, and no other issues. She denied any chest pain. 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 She does not have substantial exposure by travel, wilderness or to animals. PAST MEDICAL HISTORY: Remarkable for (1) Hypertension. (2) Hypothyroidism. (3) History of kidney stones. (4) Gastroesophageal reflux disease. (5) Asthma. (6) Hyperactive bladder. (7) Allergic rhinitis. (8) Irritable bowel. (9) Hypercholesterolemia. (10) Prediabetes. PAST SURGICAL HISTORY: (1) The patient has had an appendectomy. (2) Page 1 of 4 MARJORIE GRAHAM History Physical/Discharge Summary MARJORIE GRAHAM :1950 Cholecystectomy. (3) Mastectomy. (4) Laminectomy. (5) Choledochojejunostomy. (6) Hysterectomy. (7) Bilateral knee replacement. MEDICATIONS: Refer to medication reconciliation. ALLERGIES: She has an allergy to penicillin, sulfa, and Cipro. FAMILY HISTORY: Positive for diabetes and atherosclerotic vascular disease. SOCIAL HISTORY: The patient does not smoke or drink alcohol. REVIEW OF SYSTEMS: The patient denied fever or chills, night sweats. No headache. She does have blurry vision. No earache. She did have dizziness. No sore throat. No neck pain. No chest pain, shortness of breath, cough, or phlegm production. No nausea or vomiting, diarrhea, constipation, difficulty with urination, increased frequency or burning, and no skin rashes. PHYSICAL EXAMINATION GENERAL APPEARANCE: This is a 73-year-old lady who is pleasant sitting in the bed comfortable. VITAL SIGNS: Vital signs revealed the patient's blood pressure of 118/64, heart rate 66, and temperature 97.6. HEENT: Normocephalic and atraumatic. Pupils are round, equal, and reactive. Tongue to midline. NECK: Neck is supple. No bruit. LUNGS: Revealed clear lung goodrich. HEART: Regular. No gallop or murmur. ABDOMEN: Soft. EXTREMITIES: Revealed no edema. NEUROLOGIC: The patient was alert and oriented x3. She did have double vision on the full extent almost of the visual field from right to left. The double vision disappears when the objects become closer to her eyes. The eye motion is totally normal in both directions. There is slight nystagmus to the right; otherwise, sensation in the face is normal. There is no facial droop. DIAGNOSTIC DATA: Laboratory data has revealed her white count of 9.1, hemoglobin Page 2 of 4 MARJORIE GRAHAM History Physical/Discharge Summary MARJORIE GRAHAM :1950 11.5, BUN 22, creatinine 0.74, glucose 237. Of note, the patient received a recent course of steroids. CT scan was normal. MRI did not reveal any stroke, questionable increased flare imaging and may indicate inflammatory disease. IMPRESSION: 1. Double vision without specific neurological abnormalities. 2. Vertigo. 3. History of hypertension, appeared to be well-controlled. Some of the patient's blood pressure readings on the diastolic part is less than 60. The patient is on Hyzaar 100/25. 4. Recent ENT surgery. The patient did have her symptoms after she had an ENT procedure. The patient's combination of local and I am not sure what general anesthetic she received, she would be considered a stroke risk. The patient did not have a stroke on the MRI. Neurology did evaluate the patient by Tele Stroke, and they recommended the MRI and va (more content not included)... [facility] 04-19-2024 Telephone encounter Note Patient returned call and went over notes from Dr Green with understanding. Aware rx sent to the pharmacy. [facility] 04-19-2024 Miscellaneous Notes Patient returned call and went over notes from Dr Green with understanding. Aware rx sent to the pharmacy. Called and left a voicemail for the Patient to call back and ask for a nurse to receive the providers message. Philly Holt RN Difficult to tell if symptoms are from infection or not being able to clear due to inflammation after surgery, etc. Since got worse off the antibiotic, will continue another course. Should be seen for follow up here or by ENT if not getting better. Will reach out to ENT again if not getting better next week. Progress report next week please. The following approved medication requests have been transmitted electronically. Requested Prescriptions Signed Prescriptions Disp Refills doxycycline (VIBRA-TABS) 100 mg tablet 20 tablet 0 Sig: Take 1 tablet by mouth two times a day for 10 days. Authorizing Provider: FIFI GREEN MD Pt called in and reports she is still having L sided headache and congestion. Pt states she hasn't been able to get anything out of her sinuses, see previous message. Pt has sinus surgery on Apr [address] Wang that did the surgery has not had any contact with her since. She is now seeing Dr García in [place] as her eye doctor, and she told Pt to ask PCP about helping with this. Pt last saw provider on 03/25/24 before her surgery. I tried to get Pt in to be seen, but she states she isn't able to drive, because ever since the sinus surgery she has had double vision, and they are paving her long driveway so she couldn't get out. She reports they tried a prism therapy for her eyes and it didn't help. She reports she goes back in on Sunday and they are going to try something different. Please call and advise. Patient calling she completed the Doxycyline rx Sunday and today she woke up with lots of sinus pressure, headache. Patient thinks may have start of sinus infection, but has not blow anything out of her nose today. Patient said she can not flush her sinus since her surgery. Patient said she is not calling ENT, Dr has not spoken to her since her surgery complications. Patient asking for another antibiotic rx. Patient uses [facility] in [place]. Please advise documented in this encounter [facility] 04-19-2024 Telephone encounter Note Called and left a voicemail for the Patient to call back and ask for a nurse to receive the providers message. Philly Holt RN [facility] 04-18-2024 Telephone encounter Note Difficult to tell if symptoms are from infection or not being able to clear due to inflammation after surgery, etc. Since got worse off the antibiotic, will continue another course. Should be seen for follow up here or by ENT if not getting better. Will reach out to ENT again if not getting better next week. Progress report next week please. The following approved medication requests have been transmitted electronically. Requested Prescriptions Signed Prescriptions Disp Refills doxycycline (VIBRA-TABS) 100 mg tablet 20 tablet 0 Sig: Take 1 tablet by mouth two times a day for 10 days. Authorizing Provider: FIFI GREEN MD [facility] 04-18-2024 Telephone encounter Note Pt called in and reports she is still having L sided headache and congestion. Pt states she hasn't been able to get anything out of her sinuses, see previous message. Pt has sinus surgery on Apr [address] Wang that did the surgery has not had any contact with her since. She is now seeing Dr García in [place] as her eye doctor, and she told Pt to ask PCP about helping with this. Pt last saw provider on 03/25/24 before her surgery. I tried to get Pt in to be seen, but she states she isn't able to drive, because ever since the sinus surgery she has had double vision, and they are paving her long driveway so she couldn't get out. She reports they tried a prism therapy for her eyes and it didn't help. She reports she goes back in on Sunday and they are going to try something different. Please call and advise. [facility] 04-17-2024 Telephone encounter Note Patient calling she completed the Doxycyline rx Sunday and today she woke up with lots of sinus pressure, headache. Patient thinks may have start of sinus infection, but has not blow anything out of her nose today. Patient said she can not flush her sinus since her surgery. Patient said she is not calling ENT, Dr has not spoken to her since her surgery complications. Patient asking for another antibiotic rx. Patient uses [facility] in [place]. Please advise T [facility] 04-15-2024 Telephone encounter Note Patient aware of same. Will request a sooner appointment if the prism lens do not improve or clear up the symptoms. T [facility] 04-15-2024 Miscellaneous Notes Patient aware of same. Will request a sooner appointment if the prism lens do not improve or clear up the symptoms. As long as stable and she is okay with waiting till June appointment with ENT, will stay the course with her following up with Dr. García. If symptoms were to worsen or just not getting better fast enough, can see about getting sooner appointment. Spoke with patient. Symptoms not improving but not worsening. She says she has some nasal congestion and clear nasal drainage. She has intermittent right cheek pain. She still has double vision and will pecan picker her prism lens this week (had not come in yet). Sabrina Ayala RN I have not heard back from ENT yet. Please get a progress report to see how she is doing then will reach out to ENT again if need to try to get appointment in sooner. How is her vision? Pain issues? Sinus symptoms? documented in this encounter [facility] 04-14-2024 Telephone encounter Note As long as stable and she is okay with waiting till June appointment with ENT, will stay the course with her following up with Dr. García. If symptoms were to worsen or just not getting better fast enough, can see about getting sooner appointment. [facility] 04-14-2024 Telephone encounter Note Spoke with patient. Symptoms not improving but not worsening. She says she has some nasal congestion and clear nasal drainage. She has intermittent right cheek pain. She still has double vision and will pecan picker her prism lens this week (had not come in yet). Sabrina Ayala RN [facility] 04-14-2024 Telephone encounter Note I have not heard back from ENT yet. Please get a progress report to see how she is doing then will reach out to ENT again if need to try to get appointment in sooner. How is her vision? Pain issues? Sinus symptoms? [facility] 04-10-2024 Telephone encounter Note Patient returns call and provider message reviewed. Transferred to schedule consult to ENT. Britany Armendariz RN [facility] 04-10-2024 Miscellaneous Notes Patient returns call and provider message reviewed. Transferred to schedule consult to ENT. Britany Armendariz RN Left vm for patient to return call to nurse for provider's message. From what I can find for sites for providers: Kellee--[facility], [place] and Kannan Stuart-- [facility] and Javan Rodriguez [facility]--looks like [facility] when look at main website but did not pull up in Consult order. See if has preference for provider. Consult order filed so can choose first available or one of the above providers. If there is a delay in trying to make an appointment, can book with a provider, place on cancellation list and let me know and I will send a message to the provider to see if they can move patient up. If not having a problem with allergy symptoms, would hold off on antihistamines. Phoned patient and given provider's message below. Patient states she is agreeable to see [facility] provider outside of [place], recommended by Dr. Salas. Patient would like to know where these specialists are located. Reports she only talked with Dr. García. Dr. García talked to Dr. Esquivel and had Dr. Esquivel look at the CT scan. Patient reports she still has dbl vision in one eye. Dr. García talked with patient's eye doctor at [facility] in [place], gave him measurements, and [facility] has ordered patient a prism lens- one lens used for lazy eye- and is suppose to get rid of the double vision, in her one eye. Patient reports she has a lot of clear mucous (no blood) coming from her nose. Reports she is blowing gently, but doesn't know what she can do. Reports she never received home care instructions from Dr. Saavedra. Asking pcp can she take an antihistamine? Reports she still has a couple days left of doxycycline, before completes it. Check with patient if okay with seeing [facility] provider outside of [place]. Dr. Salas recommended specialist in sinus disease, and names provided include: Dr. Tariq, [place], or Sade. Verify whether she discussed ENT evaluation with Dr. García or Dr. Esquivel. See how she is doing. Dr Green to address. Nelli Abdul LPN My apologies for the delay in replying. The operative notes of Dr. Saavedra are under scanned documents. Did see that Dr. García reviewed patient with Dr. Esquivel who is ENT in [place]. She can see whether he would see her locally. (Noted: Her consult note is scanned in--air in left orbit noted. The CT done at [facility] did not note a fracture).. Will have to check with [facility] ENT what they would recommend and need to verify with patient she and are okay with traveling outside of [place] for further evaluation and treatment. Check with patient if has a preference where to see ENT CT report from Care Everywhere: Relevant Diagnostic Tests and/or Laboratory Data Author Alex Campo [facility] Report Date/Time April 04, 2024 1:08pm [facility] Imaging Services [address] [place] [address] Sinus/Facial Bone MR#: [id number] Acct: [id number] Name: ELTONNITOMARJORIE DELESE Rep #: [id number] : 1950 F 73 From: Dav Campo MD PCP: Dr. Fifi Green MD Status: FL E ER Study:Sinus/Facial Bone Date of Exam: Exam# [id number] Ordering Dr: [place] [id number] STUDY: CT FACIAL BONES WITHOUT CONTRAST REASON FOR EXAM: Female, 73 years old. orbital emphysema and swelling. Recent sinus surgery. RADIATION DOSAGE (If Supplied By Facility): CTDIvol = ( 29.38 ) mGy, DLP = ( 518.07 ) mGycm TECHNIQUE: The patient was scanned in a multi detector CT scanner. Sagittal and coronal images were reconstructed. Individualized dose optimization techniques were used for this CT. COMPARISON: None. _ FINDINGS: Normal soft tissue structures. Normal orbital gaytan and orbital contents. Normal nasal bones and anterior nasal spine. Normal facial bones. There is no demonstrated fracture. There is opacification of the ethmoid sinuses. Mucosal thickening of the maxillary sinuses. Mild mucosal thickening of the anterior aspect of the sphenoid sinus. Mucosal thickening of the right frontal sinus. _ CT/Sinus/Facial Bone IMPRESSION: Partial opacification of the ethmoid sinuses. Mucosal thickening of the maxillary sinuses and sphenoid sinuses. Electronically Signed: Alex Campo MD at 13:08 EDT , CC: Dr. Cali Hutson DO; Dr. Fifi Green MD ~ [employer]: Signed Pt checking on reply: Reports she had balloon plasty for her sinus to expand sinus cavity and open up the sinus. Developed eye pain after the surgery, and CT done in ER, found out her skull was fractured around the eye socket, from the surgery. Pt saw Dr. García for eye, who prescribed doxycycline for 7 days, and advised since patient is not having pain now, will just have to wait for the fracture to heal. Pt was suppose to go back to Dr. Weeks, who did the surgery, in a few days to have the sinus flushed, but is not going back to that doctor. Reports [facility] is dealing with that doctor. Wants to know who can she see to have the sinus flushed? Reports she just completed steroids, and is concerned about her BS and BP, and is aware the steroids can elevate both, but returns to baseline, once completes steroid. Pt asking pcp opinion on what she should do now? Reports no improvement in sinus after surgery- still feels plugged. Patient Vitaly calling had sinus surgery per Dr Saavedra from [facility]. She just had gotten out of [facility] ER had to go for CT. She was seen by Dr García the eye Dr and sent to the ER, she has skull fracture. His does not want to see Dr Saavedra any longer, she was to have gone in for sinus flush so many days after her surgery. Her is asking what should she do now, since she will not go back to him? She has eye complications, very upsetting and confusing to her . He is asking [facility] to fax records to PCP office. Please advise documented in this encounter [facility] 04-10-2024 Telephone encounter Note Left vm for patient to return call to nurse for provider's message. [facility] 04-09-2024 Telephone encounter Note From what I can find for sites for providers: Kellee--[facility], [place] and Kannan Stuart-- [facility] and [facility] Michael [facility]--looks like [facility] when look at main website but did not pull up in Consult order. See if has preference for provider. Consult order filed so can choose first available or one of the above providers. If there is a delay in trying to make an appointment, can book with a provider, place on cancellation list and let me know and I will send a message to the provider to see if they can move patient up. If not having a problem with allergy symptoms, would hold off on antihistamines. [facility] 04-09-2024 Telephone encounter Note Phoned patient and given provider's message below. Patient states she is agreeable to see [facility] provider outside of [place], recommended by Dr. Salas. Patient would like to know where these specialists are located. Reports she only talked with Dr. García. Dr. García talked to Dr. Esquivel and had Dr. Esquivel look at the CT scan. Patient reports she still has dbl vision in one eye. Dr. García talked with patient's eye doctor at [facility] in [place], gave him measurements, and [facility] has ordered patient a prism lens- one lens used for lazy eye- and is suppose to get rid of the double vision, in her one eye. Patient reports she has a lot of clear mucous (no blood) coming from her nose. Reports she is blowing gently, but doesn't know what she can do. Reports she never received home care instructions from Dr. Saavedra. Asking pcp can she take an antihistamine? Reports she still has a couple days left of doxycycline, before completes it. [facility] 04-08-2024 Telephone encounter Note Check with patient if okay with seeing [facility] provider outside of [place]. Dr. Salas recommended specialist in sinus disease, and names provided include: Dr. Tariq, [place], or Sade. Verify whether she discussed ENT evaluation with Dr. García or Dr. Esquivel. See how she is doing. [facility] 04-08-[address] Green to address. Nelli Abdul LPN [facility] 04-07-2024 Telephone encounter Note My apologies for the delay in replying. The operative notes of Dr. Saavedra are under scanned documents. Did see that Dr. García reviewed patient with Dr. Esquivel who is ENT in [place]. She can see whether he would see her locally. (Noted: Her consult note is scanned in--air in left orbit noted. The CT done at [facility] did not note a fracture).. Will have to check with [facility] E[facility] what they would recommend and need to verify with patient she and are okay with traveling outside of [place] for further evaluation and treatment. Check with patient if has a preference where to see ENT CT report from Care Everywhere: Relevant Diagnostic Tests and/or Laboratory Data Author Alex Campo [facility] Report Date/Time April 04, 2024 1:08pm [facility] Imaging Services [address] [place] [id number] Sinus/Facial Bone MR#: [id number] Acct: [id number] Name: MARJORIE GRAHAM Rep #: [id number] : 1950 F 73 From: Dav Campo MD PCP: Dr. Fifi Green MD Status: FL E ER Study:Sinus/Facial Bone Date of Exam: Exam# [id number] Ordering Dr: [place] [id number] STUDY: CT FACIAL BONES WITHOUT CONTRAST REASON FOR EXAM: Female, 73 years old. orbital emphysema and swelling. Recent sinus surgery. RADIATION DOSAGE (If Supplied By Facility): CTDIvol = ( 29.38 ) mGy, DLP = ( 518.07 ) mGycm TECHNIQUE: The patient was scanned in a multi detector CT scanner. Sagittal and coronal images were reconstructed. Individualized dose optimization techniques were used for this CT. COMPARISON: None. _ FINDINGS: Normal soft tissue structures. Normal orbital gaytan and orbital contents. Normal nasal bones and anterior nasal spine. Normal facial bones. There is no demonstrated fracture. There is opacification of the ethmoid sinuses. Mucosal thickening of the maxillary sinuses. Mild mucosal thickening of the anterior aspect of the sphenoid sinus. Mucosal thickening of the right frontal sinus. _ CT/Sinus/Facial Bone IMPRESSION: Partial opacification of the ethmoid sinuses. Mucosal thickening of the maxillary sinuses and sphenoid sinuses. Electronically Signed: Alex Campo MD at 13:08 EDT , CC: Dr. Cali Hutson DO; Dr. Fifi Green MD ~ [employer]: Signed [facility] 04-07-2024 Telephone encounter Note Pt checking on reply: Reports she had balloon plasty for her sinus to expand sinus cavity and open up the sinus. Developed eye pain after the surgery, and CT done in ER, found out her skull was fractured around the eye socket, from the surgery. Pt saw Dr. García for eye, who prescribed doxycycline for 7 days, and advised since patient is not having pain now, will just have to wait for the fracture to heal. Pt was suppose to go back to Dr. Weeks, who did the surgery, in a few days to have the sinus flushed, but is not going back to that doctor. Reports [place] is dealing with that doctor. Wants to know who can she see to have the sinus flushed? Reports she just completed steroids, and is concerned about her BS and BP, and is aware the steroids can elevate both, but returns to baseline, once completes steroid. Pt asking pcp opinion on what she should do now? Reports no improvement in sinus after surgery- still feels plugged. [facility] 04-04-2024 Telephone encounter Note Patient Vitaly calling had sinus surgery per Dr Saavedra from [email or web address]. She just had gotten out of [facility] ER had to go for CT. She was seen by Dr García the eye Dr and sent to the ER, she has skull fracture. His does not want to see Dr Saavedra any longer, she was to have gone in for sinus flush so many days after her surgery. Her is asking what should she do now, since she will not go back to him? She has eye complications, very upsetting and confusing to her . He is asking [facility] to fax records to PCP office. Please advise [facility] 03-25-2024 Instructions Fifi Green MD - 03/25/2024 11:17 AM EDT -We discussed your upcoming sinuplasty surgery on April [address] Wang. This procedure should help alleviate the sinus issues you've been experiencing. - You will receive antibiotics via IV during your surgery to prevent infection, especially considering your history of knee replacements. - We discussed your concerns about managing your fibromyalgia pain. Continue using Tylenol Arthritis and Celebrex as needed for pain relief. You are already utilizing massages and acupuncture, which are beneficial. If you feel the need to consult a assault amphibious vehicle crewman for additional management strategies, you may consider doing so. - We discussed your diabetes management and the challenges you've faced with Metformin. I have prescribed Jardiance to help better control your blood sugar levels. Monitor your blood sugar levels using a glucose meter, which will be provided. Check your blood sugar levels in the morning and evening, and after meals. Aim to keep your morning levels under 150, your post-meal levels under 180, and your bedtime levels under 180 as well. If you consistently see levels over 200-250, drinking a cup of broth can help lower your blood sugar. Report any yeast infections or other side effects to me. - You will receive a flu shot today in preparation for your cruise on April 18. The decision to receive another COVID-19 vaccine is up to you, considering your past experiences and upcoming travel plans. - We will recheck your A1c and metabolic panel in 3 months. Schedule a follow-up appointment to discuss the results and any adjustments to your care plan. documented in this encounter [facility] 03-25-2024 Note HNO ID: [id number] Author: FIFI GREEN MD Service: ? Author Type: Physician Type: Progress Notes Filed: 03/25/2024 12:22 Note Text: This note was created using [employer]. Subjective Marjorie Graham is a 73 year old female. Patient presents with: F/U 6 months: Labs prior SUBJECTIVE: Marjorie Graham is a 73 year old year old lady here today for 6 month follow up appointment for review of medical conditions. The patient is a 73-year-old female with a history of fibromyalgia and DM, presenting for a 6-month follow-up. The patient reports ongoing issues with chronic sinusitis, for which she has been treated with two courses of antibiotics and prednisone over the summer. She notes that the prednisone was tapered, but she experienced significant side effects, including swelling of her hands and exacerbation of her fibromyalgia symptoms, leading to diffuse myalgia. She reports that her had to quarter the prednisone tablets due to her inability to tolerate the full 20 mg dose at once. Despite these treatments, she continues to experience sinus congestion, particularly on one side, and has been using a neti pot daily without relief. She has also been receiving sinus massages from her massage therapist and pig farmer, but these have not been sufficient to alleviate her symptoms. She is scheduled for a sinusoplasty on April [address] Casey in [place]. She inquired about the need for prophylactic antibiotics due to her history of bilateral knee replacements, and was informed that antibiotics would be administered intravenously during the procedure. The patient also reports a recent increase in her blood glucose levels, with a recent HbA1c of 9.4%. She attributes this to the recent courses of prednisone and ongoing infection. She is currently taking metformin, but reports difficulty adhering to the prescribed dose of four tablets per day due to gastrointestinal side effects, including diarrhea. She denies symptoms of polydipsia, but reports polyuria, which she notes is her baseline. The patient also inquires about the need for a flu shot and a potential fifth COVID-19 vaccination, as she is planning a cruise on April 18. She reports no adverse reactions to previous COVID-19 vaccinations. She also inquires about the need for a second RSV vaccination, having received her first last year. The patient reports that her fibromyalgia symptoms have been exacerbated by the recent courses of prednisone. She is currently managing her symptoms with acupuncture, massage therapy, and Tylenol Arthritis. She inquires about the use of Celebrex in conjunction with Tylenol Arthritis for pain management. She also inquires about the potential benefits of seeing a assault amphibious vehicle crewman for her fibromyalgia. The patient reports that her bladder symptoms have improved with the use of Myrbetriq 25 mg daily. She had started physical therapy for her bladder, but discontinued due to feeling unwell. She plans to resume therapy after her upcoming surgery and cruise. She also requests a refill of her scopolamine patches for her upcoming cruise. PAST MEDICAL HISTORY Diagnosis Date Abdominal pain, epigastric Abdominal pain, left lower quadrant Acute gastritis without mention of hemorrhage Allergic rhinitis, cause unspecified Allergic rhinitis Diaphragmatic hernia without mention of obstruction or gangrene DM type 2 (diabetes mellitus, type 2) ([facility]) Esophageal reflux 07/24/2005 Esophagitis, unspecified Intestinal disaccharidase deficiencies and disaccharide malabsorption Malignant neoplasm of breast (female), unspecified site 07/02/1985 Breast cancer Morbid obesity (HCC) Myalgia and myositis, unspecified Obesity (BMI 30-39.9) Pure hypercholesterolemia Unspecified constipation Unspecified essential hypertension Unspecified hypothyroidism Unspecified sinusitis (chronic) Chronic sinusitis Urge incontinence of urine Current Outpatient Medications Medication Sig beta-carotene,A,-vits C,E/mins (OCUVITE ORAL) Take 1 capsule by mouth once daily. mirabegron (MYRBETRIQ) 25 mg Tb24 Take 1 tablet by mouth once daily. benzonatate (TESSALON PERLES) 100 mg capsule Take 1-2 capsules by mouth three times a day as needed. albuterol (PROVENTIL) 2.5 mg /3 mL (0.083 %) nebulizer solution Use 3 mL via nebulizer every 4 hours as needed for wheezing/shortness of breath. meclizine (ANTIVERT) 25 mg tab TAKE ONE TABLET BY MOUTH EVERY 6 HOURS NEEDED FOR DIZZINESS albuterol HFA (VENTOLIN HFA) 90 mcg/actuation inhaler Inhale 2 Puffs as instructed every 4 hours as needed. hyoscyamine (LEVSIN) 0.125 mg tablet Take 0.125 mg by mouth every 6 hours as needed. levothyroxine (SYNTHROID) 112 mcg tablet Take 1 tablet by mouth once daily. Take on empty stomach. For thyroid losartan-hydroCHLOROthiazide (HYZAAR) 100-25 mg per tablet Take 1 tablet by mouth once daily. metFORMIN ER (G (more content not included)... [facility] 03-25-2024 History of Present illness Narrative This note was created using [employer]. Subjective Marjorie Graham is a 73 year old female. Patient presents with: F/U 6 months: Labs prior SUBJECTIVE: Marjorie Graham is a 73 year old year old lady here today for 6 month follow up appointment for review of medical conditions. The patient is a 73-year-old female with a history of fibromyalgia and DM, presenting for a 6-month follow-up. The patient reports ongoing issues with chronic sinusitis, for which she has been treated with two courses of antibiotics and prednisone over the summer. She notes that the prednisone was tapered, but she experienced significant side effects, including swelling of her hands and exacerbation of her fibromyalgia symptoms, leading to diffuse myalgia. She reports that her had to quarter the prednisone tablets due to her inability to tolerate the full 20 mg dose at once. Despite these treatments, she continues to experience sinus congestion, particularly on one side, and has been using a neti pot daily without relief. She has also been receiving sinus massages from her massage therapist and pig farmer, but these have not been sufficient to alleviate her symptoms. She is scheduled for a sinusoplasty on April [address] Casey in [place]. She inquired about the need for prophylactic antibiotics due to her history of bilateral knee replacements, and was informed that antibiotics would be administered intravenously during the procedure. The patient also reports a recent increase in her blood glucose levels, with a recent HbA1c of 9.4%. She attributes this to the recent courses of prednisone and ongoing infection. She is currently taking metformin, but reports difficulty adhering to the prescribed dose of four tablets per day due to gastrointestinal side effects, including diarrhea. She denies symptoms of polydipsia, but reports polyuria, which she notes is her baseline. The patient also inquires about the need for a flu shot and a potential fifth COVID-19 vaccination, as she is planning a cruise on April 18. She reports no adverse reactions to previous COVID-19 vaccinations. She also inquires about the need for a second RSV vaccination, having received her first last year. The patient reports that her fibromyalgia symptoms have been exacerbated by the recent courses of prednisone. She is currently managing her symptoms with acupuncture, massage therapy, and Tylenol Arthritis. She inquires about the use of Celebrex in conjunction with Tylenol Arthritis for pain management. She also inquires about the potential benefits of seeing a assault amphibious vehicle crewman for her fibromyalgia. The patient reports that her bladder symptoms have improved with the use of Myrbetriq 25 mg daily. She had started physical therapy for her bladder, but discontinued due to feeling unwell. She plans to resume therapy after her upcoming surgery and cruise. She also requests a refill of her scopolamine patches for her upcoming cruise. PAST MEDICAL HISTORY Diagnosis Date Abdominal pain, epigastric Abdominal pain, left lower quadrant Acute gastritis without mention of hemorrhage Allergic rhinitis, cause unspecified Allergic rhinitis Diaphragmatic hernia without mention of obstruction or gangrene DM type 2 (diabetes mellitus, type 2) (HCC) Esophageal reflux 07/24/2005 Esophagitis, unspecified Intestinal disaccharidase deficiencies and disaccharide malabsorption Malignant neoplasm of breast (female), unspecified site 07/02/1985 Breast cancer Morbid obesity (HCC) Myalgia and myositis, unspecified Obesity (BMI 30-39.9) Pure hypercholesterolemia Unspecified constipation Unspecified essential hypertension Unspecified hypothyroidism Unspecified sinusitis (chronic) Chronic sinusitis Urge incontinence of urine Current Outpatient Medications Medication Sig beta-carotene,A,-vits C,E/mins (OCUVITE ORAL) Take 1 capsule by mouth once daily. mirabegron (MYRBETRIQ) 25 mg Tb24 Take 1 tablet by mouth once daily. benzonatate (TESSALON PERLES) 100 mg capsule Take 1-2 capsules by mouth three times a day as needed. albuterol (PROVENTIL) 2.5 mg /3 mL (0.083 %) nebulizer solution Use 3 mL via nebulizer every 4 hours as needed for wheezing/shortness of breath. meclizine (ANTIVERT) 25 mg tab TAKE ONE TABLET BY MOUTH EVERY 6 HOURS NEEDED FOR DIZZINESS albuterol HFA (VENTOLIN HFA) 90 mcg/actuation inhaler Inhale 2 Puffs as instructed every 4 hours as needed. hyoscyamine (LEVSIN) 0.125 mg tablet Take 0.125 mg by mouth every 6 hours as needed. levothyroxine (SYNTHROID) 112 mcg tablet Take 1 tablet by mouth once daily. Take on empty stomach. For thyroid losartan-hydroCHLOROthiazide (HYZAAR) 100-25 mg per tablet Take 1 tablet by mouth once daily. metFORMIN ER (GLUCOPHAGE XR) 500 mg 24 hr tablet Taking total of 4 pills per day but in divided doses omeprazole (PRILOSEC) 40 mg capsule Take 1 capsule by mouth once daily. ondansetron orally disintegrating (ZOFRAN ODT) 4 mg disintegrating tablet Take 1 tablet by mouth every 8 hours as needed for nausea/vomiting. rosuvastatin (CRESTOR) 10 mg tablet Take 1 tablet by mouth once daily. phenazopyridine (PYRIDIUM) 200 mg tablet Take 1 tablet by mouth three times daily as needed. fluticasone (FLONASE) 50 mcg/actuation nasal spray Use 2 Sprays in each nostril once daily. As directed dicyclomine (BENTYL) 10 mg capsule Take 1 capsule by mouth twice daily as needed. buPROPion XL (WELLBUTRIN XL) 300 mg 24 hr tablet Take 1 tablet by mouth once daily. scopolamine (TRANSDERM-SCOP) patch 1.5 mg/72 hr (delivers 1 mg over 3 days) Apply 1 Patch as directed every 72 hours. Apply patch to skin behind ear 4hrs prior to travel. montelukast (SINGULAIR) 10 mg tablet Take 1 tablet by mouth daily at bedtime. celecoxib (CELEBREX) 200 mg capsule TAKE 1 TABLET BY MOUTH ONCE A DAY WITH FOOD multivitamin tablet Take 1 tablet by mouth once daily. Cholecalciferol, Vitamin D3, (VITAMIN D) 1,000 unit cap Take 1 capsule by mouth once daily. cetirizine (ZYRTEC) 10 mg tablet Take 10 mg by mouth once daily. acetaminophen 500 mg tablet Take 500 mg by mouth every 6 hours as needed. predniSONE (DELTASONE) 20 mg tablet 1 tablet three times a day for 3 days, then 2 times a day for 3 days, the one daily for 3 days. (Patient not taking: Reported on 03/25/2024) ivermectin (SOOLANTRA) 1 % crea Apply 1 application to affected area once daily. (Patient not taking: Reported on 03/25/2024) cholestyramine (QUESTRAN) 4 gram packet Take 1 Packet by mouth three times daily with meals. (Patient not taking: Reported on 03/25/2024) No current facility-administered medications for this visit. Review of Systems Objective BP 126/80 Pulse 76 Temp 36.7 C (98 F) Resp 16 Wt 85.8 kg (189 lb 2.5 oz) SpO2 100% BMI 34.60 kg/m Physical Exam Constitutional: Appearance: Normal appearance. HENT: Head: Normocephalic. Eyes: Conjunctiva/sclera: Conjunctivae normal. Cardiovascular: Rate and Rhythm: Normal rate and regular rhythm. Heart sounds: Normal heart sounds. Pulmonary: Effort: Pulmonary effort is normal. Breath sounds: Normal breath sounds. Musculoskeletal: Right lower leg: No edema. Left lower leg: No edema. Skin: General: Skin is warm and dry. Neurological: General: No focal deficit present. Mental Status: She is alert and oriented to person, place, and time. Psychiatric: Mood and Affect: Mood normal. Behavior: Behavior normal. Thought Content: Thought content normal. Judgment: Judgment normal. Latest Ref Rng 03/14/2023 09/21/2023 03/20/2024 WBC 3.70 - 11.00 k/uL 4.55 6.64 5.56 RBC 3.90 - 5.20 m/uL 4.74 4.82 4.38 Hemoglobin 11.5 - 15.5 g/dL 13.9 13.7 12.8 Hematocrit 36.0 - 46.0 % 41.5 42.9 39.0 MCV 80.0 - 100.0 fL 87.6 89.0 89.0 MCH 26.0 - 34.0 pg 29.3 28.4 29.2 MCHC 30.5 - 36.0 g/dL 33.5 31.9 32.8 RDW-CV 11.5 - 15.0 % 11.8 12.0 13.2 Platelet Count 150 - 400 k/uL 200 245 207 MPV 9.0 - 12.7 fL 9.7 10.3 10.3 Neut% % 61.2 Abs Neut (ANC) 1.45 - 7.50 k/uL 2.78 Lymph% % 26.8 Abs Lymph 1.00 - 4.00 k/uL 1.22 Nelson% % 8.1 Abs Nelson <0.87 k/uL 0.37 Eosin% % 2.2 Abs Eosin <0.46 k/uL 0.10 Baso% % 1.5 Abs Baso <0.11 k/uL 0.07 Immature Gran % % 0.2 IMMATURE GRANS (ABS) <0.10 k/uL <0.03 NRBC /100 WBC 0.0 Absolute nRBC <0.01 k/uL <0.01 <0.01 <0.01 DTYPE Auto Protein, Total 6.3 - 8.0 g/dL 6.8 7.0 6.4 Albumin 3.9 - 4.9 g/dL 4.2 4.2 4.0 Calcium 8.5 - 10.2 mg/dL 9.4 10.3 (H) 9.6 Bilirubin, Total 0.2 - 1.3 mg/dL 0.6 0.5 0.4 Alkaline Phosphatase 34 - 123 U/L 77 76 76 AST 13 - 35 U/L 13 18 20 ALT 7 - 38 U/L 15 18 20 Glucose 74 - 99 mg/dL 148 (H) 183 (H) 251 (H) BUN 7 - 21 mg/dL 10 20 11 Creatinine 0.58 - 0.96 mg/dL 0.69 0.80 0.61 Sodium 136 - 144 mmol/L 138 141 140 Potassium 3.7 - 5.1 mmol/L 3.9 4.8 4.2 Chloride 98 - 107 mmol/L 100 102 104 CO2 22 - 30 mmol/L 27 29 26 Anion Gap 8 - 15 mmol/L 11 10 10 eGFR >=60 mL/min/1.73m 91 77 93 Cholesterol, Total <200 mg/dL 121 138 141 Triglyceride <150 mg/dL 119 97 147 HDL Cholesterol >39 mg/dL 49 56 49 Non HDL Cholesterol <130 mg/dL 72 82 92 Fasting Time hrs 12 12 12 VLDL Cholesterol <30 mg/dL 24 19 29 TC:HDL Ratio <5.10 2.47 2.46 2.88 LDL Cholesterol <100 mg/dL 48 63 63 LDL:HDL Ratio <2.54 0.98 1.13 1.29 Creatinine, Ur Random (UCRR) 20.0 - 300.0 mg/dL 263.0 131.6 Albumin, Urine Random mg/L 13.2 <12.0 Albumin/Creat Ratio <30 mg/g 5 <9 Hemoglobin A1C 4.3 - 5.6 % 7.1 (H) 7.8 (H) 9.4 (H) Estimated Average Glucose mg/dL 157 177 223 TSH 0.270 - 4.200 mIU/L 0.839 2.510 2.210 Free T3 2.3 - 4.1 pg/mL 2.6 3.2 Free T4 0.9 - 1.7 ng/dL 1.4 1.4 Legend: (H) High Assessment and Plan # Type 2 diabetes mellitus with hyperglycemia, without long-term current use of insulin (HCC) (E11.65) - Recent A1c elevated at 9.4%, likely secondary to recent steroid use and infection. - Current regimen includes metformin, but patient reports gastrointestinal side effects limiting adherence. - Initiated Jardiance 10 mg daily; discussed potential side effects including increased risk of yeast infections. - Ordered glucose monitoring kit; instructed patient on checking fasting and pre-bedtime blood glucose levels. - Provided dietary education focusing on low carbohydrate intake. - Recheck A1c and metabolic panel in 3 months; follow-up appointment scheduled. # Reactive depression (F32.9) - Stable on Wellbutrin; refilled prescription. # Acquired hypothyroidism (E03.9) - Thyroid function tests within normal limits. - Refilled levothyroxine prescription. # Primary hypertension (I10) - Blood pressure well-controlled on losartan 100 mg-hydrochlorothiazide. - Refilled prescription with a 90-day supply. # Nausea (R11.0) - Refilled Zofran prescription for prn use. # Bladder irritability (N32.89) - Symptoms improved with Myrbetriq 25 mg; refilled prescription with a 90-day supply. - Physical therapy on hold due to current health issues; to resume post-cruise. # Fibromyalgia (M79.7) - Recent exacerbation following steroid taper. - Current management includes acupuncture and massage therapy. - Discussed use of Tylenol Arthritis and Celebrex for pain control. - No immediate referral to rheumatology; will reassess after addressing current health issues. # Encounter for immunization (Z23) - Administered influenza vaccine. - Discussed COVID-19 vaccination; patient undecided. I spent a total of 40 minutes on the date of the service which included [id number] patient care, completing clinical documentation, obtaining and/or reviewing separately obtained history, performing a medically appropriate examination, counseling and educating the patient/family/caregiver, ordering medications, tests, or procedures, independently interpreting results (not separately reported), and communicating results to the patient/family/caregiver. Fifi Green MD documented in this encounter [facility] 02-29-2024 Telephone encounter Note Patient calling for a refill on her Myrbetriq Rx. Patient is completely out of her medication and does not have a refill left. Patient was seen in the office on 09/18/23 for annual exam. Can you refill in RR's absence? Lily Zamora RN [facility] 02-29-2024 Miscellaneous Notes Patient calling for a refill on her Myrbetriq Rx. Patient is completely out of her medication and does not have a refill left. Patient was seen in the office on 09/18/23 for annual exam. Can you refill in RR's absence? Lily Sera, RN documented in this encounter [facility] 01-23-2024 Note HNO ID: [id number] Author: AUGUSTO BLAND APRN.TRAUMA COORDINATOR Service: ? Author Type: Nurse Practitioner Type: Progress Notes Filed: 01/23/2024 14:59 Note Text: SUBJECTIVE Marjorie Graham is a 73 year old female here today for a check up on her medical problems. Chief Complaint Patient presents with: URI: on going for about 6 weeks has had 3 rounds of antibiotic, 1 round of prednisone Cough continues dry non-productive body aches HPI Marjorie Graham is a 73 year old female. She is an established patient of Fifi Green MD. Here today for concerns of continued URI symptoms. 12/11 saw ER at [facility] for congestion, drainage. Prior treatment with azithromycin. Ct showed paranasal sinusitis, mucosal thickening. Given Augmentin for 10 days. 12/24 saw [facility], doxycycline and prednisone. Referred to ENT. Seen with [facility], recommended Flonase, sinus rinses, not improving. Had allergy testing. Cough is persistent. Her medications were reviewed today and her list is now up to date. Medications Current Outpatient Medications Medication Sig meclizine (ANTIVERT) 25 mg tab TAKE ONE TABLET BY MOUTH EVERY 6 HOURS NEEDED FOR DIZZINESS albuterol HFA (VENTOLIN HFA) 90 mcg/actuation inhaler Inhale 2 Puffs as instructed every 4 hours as needed. hyoscyamine (LEVSIN) 0.125 mg tablet Take 0.125 mg by mouth every 6 hours as needed. mirabegron (MYRBETRIQ) 25 mg Tb24 Take 1 tablet by mouth once daily. levothyroxine (SYNTHROID) 112 mcg tablet Take 1 tablet by mouth once daily. Take on empty stomach. For thyroid losartan-hydroCHLOROthiazide (HYZAAR) 100-25 mg per tablet Take 1 tablet by mouth once daily. metFORMIN ER (GLUCOPHAGE XR) 500 mg 24 hr tablet Taking total of 4 pills per day but in divided doses omeprazole (PRILOSEC) 40 mg capsule Take 1 capsule by mouth once daily. ondansetron orally disintegrating (ZOFRAN ODT) 4 mg disintegrating tablet Take 1 tablet by mouth every 8 hours as needed for nausea/vomiting. rosuvastatin (CRESTOR) 10 mg tablet Take 1 tablet by mouth once daily. phenazopyridine (PYRIDIUM) 200 mg tablet Take 1 tablet by mouth three times daily as needed. fluticasone (FLONASE) 50 mcg/actuation nasal spray Use 2 Sprays in each nostril once daily. As directed dicyclomine (BENTYL) 10 mg capsule Take 1 capsule by mouth twice daily as needed. buPROPion XL (WELLBUTRIN XL) 300 mg 24 hr tablet Take 1 tablet by mouth once daily. scopolamine (TRANSDERM-SCOP) patch 1.5 mg/72 hr (delivers 1 mg over 3 days) Apply 1 Patch as directed every 72 hours. Apply patch to skin behind ear 4hrs prior to travel. montelukast (SINGULAIR) 10 mg tablet Take 1 tablet by mouth daily at bedtime. celecoxib (CELEBREX) 200 mg capsule TAKE 1 TABLET BY MOUTH ONCE A DAY WITH FOOD ivermectin (SOOLANTRA) 1 % crea Apply 1 application to affected area once daily. multivitamin tablet Take 1 tablet by mouth once daily. Cholecalciferol, Vitamin D3, (VITAMIN D) 1,000 unit cap Take 1 capsule by mouth once daily. cholestyramine (QUESTRAN) 4 gram packet Take 1 Packet by mouth three times daily with meals. cetirizine (ZYRTEC) 10 mg tablet Take 10 mg by mouth once daily. acetaminophen 500 mg tablet Take 500 mg by mouth every 6 hours as needed. predniSONE (DELTASONE) 20 mg tablet 1 tablet three times a day for 3 days, then 2 times a day for 3 days, the one daily for 3 days. cefdinir (OMNICEF) 300 mg capsule Take 1 capsule by mouth two times a day for 14 days. fluconazole (DIFLUCAN) 150 mg tablet Take 1 tablet by mouth one time only for 1 dose. Repeat in 3 days as needed. benzonatate (TESSALON PERLES) 100 mg capsule Take 1-2 capsules by mouth three times a day as needed. albuterol (PROVENTIL) 2.5 mg /3 mL (0.083 %) nebulizer solution Use 3 mL via nebulizer every 4 hours as needed for wheezing/shortness of breath. No current facility-administered medications for this visit. ALLERGIES Allergen Reactions Aspirin Tinnitus, hearing loss AD when on mary jo doses. Is able to take ASA now without any reaction. Ciprofloxacin Hives reports hives now after completing cipro 06/23/2019 Metformin GI Upset made her ill; stomach upset with pain and diarrhea- has taken since with no issue Penicillins Unknown hives Sulfa (Sulfonamide * Unknown hives Zocor [Simvastatin] myalgias ACTIVE PROBLEM LIST Obesity, Class I, Bmi 30-34.9 - 03/11/2019 Bladder Irritability - 08/09/2018 Urge Incontinence of Urine - 08/09/2018 Type 2 Diabetes Mellitus Without Complication, Without Long-Term Current Use of Insulin (Formerly [facility]) Degenerative Joint Disease of Cervical Spine - 03/01/2015 Comment: anterolisthesis;Mild degenerative anterolisthesis of C4 on C5. Degenerative changes present throughout the mid to lower cervical spine without high-grade s Esophageal Reflux - 07/24/2005 Fibromyalgia Pure Hypercholesterolemia Acquired Hypothyroidism Reactive Depression Primary Hypertension History of (more content not included)... [facility] 01-23-2024 History of Present illness Narrative SUBJECTIVE Marjorie Graham is a 73 year old female here today for a check up on her medical problems. Chief Complaint Patient presents with: URI: on going for about 6 weeks has had 3 rounds of antibiotic, 1 round of prednisone Cough continues dry non-productive body aches HPI Marjorie Graham is a 73 year old female. She is an established patient of Fifi Green MD. Here today for concerns of continued URI symptoms. 12/11 saw ER at [facility] for congestion, drainage. Prior treatment with azithromycin. Ct showed paranasal sinusitis, mucosal thickening. Given Augmentin for 10 days. 12/24 saw [facility], doxycycline and prednisone. Referred to ENT. Seen with [facility], recommended Flonase, sinus rinses, not improving. Had allergy testing. Cough is persistent. Her medications were reviewed today and her list is now up to date. Medications Current Outpatient Medications Medication Sig meclizine (ANTIVERT) 25 mg tab TAKE ONE TABLET BY MOUTH EVERY 6 HOURS NEEDED FOR DIZZINESS albuterol HFA (VENTOLIN HFA) 90 mcg/actuation inhaler Inhale 2 Puffs as instructed every 4 hours as needed. hyoscyamine (LEVSIN) 0.125 mg tablet Take 0.125 mg by mouth every 6 hours as needed. mirabegron (MYRBETRIQ) 25 mg Tb24 Take 1 tablet by mouth once daily. levothyroxine (SYNTHROID) 112 mcg tablet Take 1 tablet by mouth once daily. Take on empty stomach. For thyroid losartan-hydroCHLOROthiazide (HYZAAR) 100-25 mg per tablet Take 1 tablet by mouth once daily. metFORMIN ER (GLUCOPHAGE XR) 500 mg 24 hr tablet Taking total of 4 pills per day but in divided doses omeprazole (PRILOSEC) 40 mg capsule Take 1 capsule by mouth once daily. ondansetron orally disintegrating (ZOFRAN ODT) 4 mg disintegrating tablet Take 1 tablet by mouth every 8 hours as needed for nausea/vomiting. rosuvastatin (CRESTOR) 10 mg tablet Take 1 tablet by mouth once daily. phenazopyridine (PYRIDIUM) 200 mg tablet Take 1 tablet by mouth three times daily as needed. fluticasone (FLONASE) 50 mcg/actuation nasal spray Use 2 Sprays in each nostril once daily. As directed dicyclomine (BENTYL) 10 mg capsule Take 1 capsule by mouth twice daily as needed. buPROPion XL (WELLBUTRIN XL) 300 mg 24 hr tablet Take 1 tablet by mouth once daily. scopolamine (TRANSDERM-SCOP) patch 1.5 mg/72 hr (delivers 1 mg over 3 days) Apply 1 Patch as directed every 72 hours. Apply patch to skin behind ear 4hrs prior to travel. montelukast (SINGULAIR) 10 mg tablet Take 1 tablet by mouth daily at bedtime. celecoxib (CELEBREX) 200 mg capsule TAKE 1 TABLET BY MOUTH ONCE A DAY WITH FOOD ivermectin (SOOLANTRA) 1 % crea Apply 1 application to affected area once daily. multivitamin tablet Take 1 tablet by mouth once daily. Cholecalciferol, Vitamin D3, (VITAMIN D) 1,000 unit cap Take 1 capsule by mouth once daily. cholestyramine (QUESTRAN) 4 gram packet Take 1 Packet by mouth three times daily with meals. cetirizine (ZYRTEC) 10 mg tablet Take 10 mg by mouth once daily. acetaminophen 500 mg tablet Take 500 mg by mouth every 6 hours as needed. predniSONE (DELTASONE) 20 mg tablet 1 tablet three times a day for 3 days, then 2 times a day for 3 days, the one daily for 3 days. cefdinir (OMNICEF) 300 mg capsule Take 1 capsule by mouth two times a day for 14 days. fluconazole (DIFLUCAN) 150 mg tablet Take 1 tablet by mouth one time only for 1 dose. Repeat in 3 days as needed. benzonatate (TESSALON PERLES) 100 mg capsule Take 1-2 capsules by mouth three times a day as needed. albuterol (PROVENTIL) 2.5 mg /3 mL (0.083 %) nebulizer solution Use 3 mL via nebulizer every 4 hours as needed for wheezing/shortness of breath. No current facility-administered medications for this visit. ALLERGIES Allergen Reactions Aspirin Tinnitus, hearing loss AD when on mary jo doses. Is able to take ASA now without any reaction. Ciprofloxacin Hives reports hives now after completing cipro 06/23/2019 Metformin GI Upset made her ill; stomach upset with pain and diarrhea- has taken since with no issue Penicillins Unknown hives Sulfa (Sulfonamide * Unknown hives Zocor [Simvastatin] myalgias ACTIVE PROBLEM LIST Obesity, Class I, Bmi 30-34.9 - 03/11/2019 Bladder Irritability - 08/09/2018 Urge Incontinence of Urine - 08/09/2018 Type 2 Diabetes Mellitus Without Complication, Without Long-Term Current Use of Insulin (Formerly [facility]) Degenerative Joint Disease of Cervical Spine - 03/01/2015 Comment: anterolisthesis;Mild degenerative anterolisthesis of C4 on C5. Degenerative changes present throughout the mid to lower cervical spine without high-grade s Esophageal Reflux - 07/24/2005 Fibromyalgia Pure Hypercholesterolemia Acquired Hypothyroidism Reactive Depression Primary Hypertension History of Breast Cancer Comment: Breast cancer Dysmetabolic Syndrome X - 11/07/2002 Social History Tobacco Use Smoking status: Never Smokeless tobacco: Never Vaping Use Vaping Use: Never used Substance Use Topics Alcohol use: No Comment: less than one drink per week Drug use: No Review of Systems Constitutional: Positive for fatigue. HENT: Positive for congestion, sinus pressure and sinus pain. Respiratory: Positive for cough. Cardiovascular: Negative. OBJECTIVE BP 128/82 Pulse 73 Temp (Src) 100.1 (Temporal) Wt 187 lb (84.8kg) SpO2 96% Physical Exam Vitals and nursing note reviewed. Constitutional: General: She is awake. She is not in acute distress. Appearance: Normal appearance. She is well-developed and well-groomed. She is not ill-appearing, toxic-appearing or diaphoretic. HENT: Head: Normocephalic. Right Ear: Hearing, ear canal and external ear normal. Left Ear: Hearing, ear canal and external ear normal. Ears: Comments: Tms dull Nose: Right Sinus: Maxillary sinus tenderness and frontal sinus tenderness present. Left Sinus: Maxillary sinus tenderness and frontal sinus tenderness present. Eyes: General: Vision grossly intact. Conjunctiva/sclera: Conjunctivae normal. Pupils: Pupils are equal, round, and reactive to light. Neck: Vascular: No JVD. Trachea: Trachea normal. Cardiovascular: Rate and Rhythm: Normal rate and regular rhythm. Pulses: Normal pulses. Heart sounds: Normal heart sounds. No murmur heard. Pulmonary: Effort: Pulmonary effort is normal. No accessory muscle usage, prolonged expiration or respiratory distress. Breath sounds: Normal breath sounds. Musculoskeletal: Cervical back: Neck supple. Lymphadenopathy: Cervical: Cervical adenopathy present. Right cervical: Superficial cervical adenopathy present. Left cervical: Superficial cervical adenopathy present. Skin: General: Skin is warm and dry. Capillary Refill: Capillary refill takes less than 2 seconds. Neurological: General: No focal deficit present. Mental Status: She is alert and oriented to person, place, and time. Mental status is at baseline. Psychiatric: Attention and Perception: Attention and perception normal. Mood and Affect: Mood and affect normal. Speech: Speech normal. Behavior: Behavior normal. Behavior is cooperative. Thought Content: Thought content normal. Cognition and Memory: Cognition and memory normal. Judgment: Judgment normal. ASSESSMENT/PLAN: 1. Subacute pansinusitis - ICD9: 461.8, ICD10: J01.40 (primary diagnosis) Persistent sinusitis, seen with ENT, no further interventions done, if persistent despite treatment from visit today then get second opinion. - Will begin treatment with as per antibiotic as written, see orders - The patient should also be given OTC cough and cold meds as needed, warm salt water gargles, throat lozenges and/or OTC throat spray as needed, and nasal saline gtts and suction prn for the first 5-7 days of treatment. - Supportive care with plenty of fluids, rest, and analgesia prn. - Follow up in 3-5 days if symptoms persist or worsen. - PREDNISONE 20 MG TABLET - CEFDINIR 300 MG CAPSULE - FLUCONAZOLE 150 MG TABLET - BENZONATATE 100 MG CAPSULE - ALBUTEROL SULFATE 2.5 MG/3 ML (0.083 %) SOLUTION FOR NEBULIZATION 2. Thrush - ICD9: 112.0, ICD10: B37.0 Diflucan. Portions of this note have been entered by ancillary staff. I have reviewed and when necessary edited, so that they are an adequate record of my encounter with this patient Please note that parts of this document were created using voice recognition software and therefore may contain grammatical errors. Patient verbalizes understanding of instructions from today's visit and in agreement with treatment plan. Questions answered. Agrees to call the office if questions, concerns of issues with acute symptoms not improving or if they worsen. See diagnoses and orders for additional plan(s). Allergies and medications were reviewed, list was updated, and refills given if needed. Past medical, surgical, social, and family history reviewed and updated as appropriate. Encouraged proper diet & exercise as well as compliance with taking medications. Age-appropriate health preventative measures were discussed. Return if symptoms worsen or fail to improve, for Keep next scheduled appointment.. Augusto Bland APRN-FLETCHER documented in this encounter [facility] 12-25-2023 History of Present illness Narrative Radiology Service Progress Note PATIENT NAME: Marjorie Graham DATE OF SERVICE: December 25, 2023 TIME: 8:15 AM PATIENT IDENTITY VERIFICATION COMPLETED USING TWO (2) IDENTIFIERS: Name and Date of confirmed by patient verbally. FALL SCREENING: Has the patient had 2 falls in the last year or 1 fall with injury or currently using an Ambulatory Assistive Device (Walker, Cane, Wheelchair, Crutches, etc.)? No PATIENT GENDER DATA: Female. status: : No status: NO. PATIENT RELEVANT IMPLANT DATA REVIEWED: Not Applicable PATIENT PRESENTS WITH AN IMPLANTABLE OR ATTACHED INTELLIGENCE SPECIALIST: No RADIOLOGY DEPARTMENT: General X-ray: Exam(s) Completed: Chest X-Ray PERIPHERAL IV DATA: Not applicable SIGNED BY: RT Pepito(Hilary) December 25, 2023 8:15 AM documented in this encounter [facility] 12-25-2023 Miscellaneous Notes CXR shows left basilar mild atelectasis, hiatal hernia. documented in this encounter [facility] 12-25-2023 Progress note Formatting of t his note might be different from the original. CXR shows left basilar mild atelectasis, hiatal hernia. [facility] 12-25-2023 History of Present illness Narrative SUBJECTIVE: Diabetic Foot Exam due on 01/18/2022 Advance Directive Discussion due on 07/02/2023 Covid-19 Vaccine() due on 07/26/2023 HPI Marjorie Graham is a 73 year old female. PMH significant for ACTIVE PROBLEM LIST Dysmetabolic Syndrome X Fibromyalgia Pure Hypercholesterolemia Acquired Hypothyroidism Reactive Depression Primary Hypertension History of Breast Cancer Esophageal Reflux Degenerative Joint Disease of Cervical Spine Type 2 Diabetes Mellitus Without Complication, Without Long-Term Current Use of Insulin ([facility]) Bladder Irritability Urge Incontinence of Urine Obesity, Class I, Bmi 30-34.9 Presents today regarding ER follow up visit. She was seen at [facility] ER 12/12/2023 for sinus congestion and drainage for 1-2 weeks prior to arrival. Noted history of vertigo and M ni re's disease with episode of dizziness, symptoms were worse with movement of the head or with standing up suddenly. Slight occipital headache no nausea or vomiting. No fever. She noted previously treated with azithromycin without much improvement. Chest x-ray was completed showed superimposed cardiac density thought to be a hiatal hernia. No other acute pulmonary abnormality is noted. CT of brain was completed for dizziness. No evidence of intracranial abnormality. Paranasal sinus disease noted, mucosal thickening in the maxillary ethmoid and frontal sinuses. Labs were unremarkable. EKG showed sinus rhythm without acute changes. She was treated with IV fluids meclizine and Zofran. She is still noted positional symptoms when standing up rapidly. Discharged home with Augmentin x 10 days. Recommended Jorge maneuvers at home. Diagnosis acute positional vertigo and sinusitis. Dizziness:Notes persisting, most often with moving head quickly or standing up quickly. Jorge maneuvers at home, not seeming to help much. Sinus congestion:continues Sinus drainage: yes, clear Fever: no Cough: yes, occasionally productive. Often at night. Can be difficult to control Shortness of breath: a little with exertion Does have history of asthma. No sore throat. Ear fullness, no tinnitus or pain, some decrease in hearing. No ENT. No prior history of [place] known. Review of Systems Constitutional: Negative. HENT: Positive for rhinorrhea and sinus pressure. Respiratory: Positive for cough, shortness of breath and wheezing. Objective BP 125/79 Pulse 65 Resp 16 Wt 86.6 kg (191 lb) SpO2 96% BMI 34.93 kg/m Physical Exam Vitals and nursing note reviewed. Constitutional: Appearance: Normal appearance. HENT: Head: Normocephalic and atraumatic. Right Ear: Tympanic membrane and ear canal normal. Left Ear: Tympanic membrane and ear canal normal. Ears: Comments: some cerumen present both ears Nose: Mucosal edema and rhinorrhea present. Right Sinus: No maxillary sinus tenderness or frontal sinus tenderness. Left Sinus: No maxillary sinus tenderness or frontal sinus tenderness. Mouth/Throat: Lips: [place]. Mouth: Mucous membranes are moist. Pharynx: Oropharynx is clear. Eyes: Conjunctiva/sclera: Conjunctivae normal. Cardiovascular: Rate and Rhythm: Normal rate and regular rhythm. Pulmonary: Effort: Pulmonary effort is normal. Breath sounds: Normal breath sounds. Skin: General: Skin is warm and dry. Neurological: General: No focal deficit present. Mental Status: She is alert and oriented to person, place, and time. ALLERGIES Allergen Reactions Aspirin Tinnitus, hearing loss AD when on mary jo doses. Is able to take ASA now without any reaction. Ciprofloxacin Hives reports hives now after completing cipro 06/23/2019 Metformin GI Upset made her ill; stomach upset with pain and diarrhea- has taken since with no issue Penicillins Unknown hives Sulfa (Sulfonamide * Unknown hives Zocor [Simvastatin] myalgias Medications meclizine (ANTIVERT) 25 mg tab TAKE ONE TABLET BY MOUTH EVERY 6 HOURS NEEDED FOR DIZZINESS hyoscyamine (LEVSIN) 0.125 mg tablet Take 0.125 mg by mouth every 6 hours as needed. mirabegron (MYRBETRIQ) 25 mg Tb24 Take 1 tablet by mouth once daily. albuterol HFA (VENTOLIN HFA) 90 mcg/actuation inhaler Inhale 2 Puffs as instructed every 4 hours as needed. levothyroxine (SYNTHROID) 112 mcg tablet Take 1 tablet by mouth once daily. Take on empty stomach. For thyroid losartan-hydroCHLOROthiazide (HYZAAR) 100-25 mg per tablet Take 1 tablet by mouth once daily. metFORMIN ER (GLUCOPHAGE XR) 500 mg 24 hr tablet Taking total of 4 pills per day but in divided doses omeprazole (PRILOSEC) 40 mg capsule Take 1 capsule by mouth once daily. ondansetron orally disintegrating (ZOFRAN ODT) 4 mg disintegrating tablet Take 1 tablet by mouth every 8 hours as needed for nausea/vomiting. rosuvastatin (CRESTOR) 10 mg tablet Take 1 tablet by mouth once daily. phenazopyridine (PYRIDIUM) 200 mg tablet Take 1 tablet by mouth three times daily as needed. fluticasone (FLONASE) 50 mcg/actuation nasal spray Use 2 Sprays in each nostril once daily. As directed dicyclomine (BENTYL) 10 mg capsule Take 1 capsule by mouth twice daily as needed. buPROPion XL (WELLBUTRIN XL) 300 mg 24 hr tablet Take 1 tablet by mouth once daily. scopolamine (TRANSDERM-SCOP) patch 1.5 mg/72 hr (delivers 1 mg over 3 days) Apply 1 Patch as directed every 72 hours. Apply patch to skin behind ear 4hrs prior to travel. montelukast (SINGULAIR) 10 mg tablet Take 1 tablet by mouth daily at bedtime. celecoxib (CELEBREX) 200 mg capsule TAKE 1 TABLET BY MOUTH ONCE A DAY WITH FOOD ivermectin (SOOLANTRA) 1 % crea Apply 1 application to affected area once daily. multivitamin tablet Take 1 tablet by mouth once daily. Cholecalciferol, Vitamin D3, (VITAMIN D) 1,000 unit cap Take 1 capsule by mouth once daily. cholestyramine (QUESTRAN) 4 gram packet Take 1 Packet by mouth three times daily with meals. cetirizine (ZYRTEC) 10 mg tablet Take 10 mg by mouth once daily. acetaminophen 500 mg tablet Take 500 mg by mouth every 6 hours as needed. PAST MEDICAL HISTORY Diagnosis Date Abdominal pain, epigastric Abdominal pain, left lower quadrant Acute gastritis without mention of hemorrhage Allergic rhinitis, cause unspecified Allergic rhinitis Diaphragmatic hernia without mention of obstruction or gangrene DM type 2 (diabetes mellitus, type 2) (HCC) Esophageal reflux 07/24/2005 Esophagitis, unspecified Intestinal disaccharidase deficiencies and disaccharide malabsorption Malignant neoplasm of breast (female), unspecified site 07/02/1985 Breast cancer Morbid obesity (HCC) Myalgia and myositis, unspecified Obesity (BMI 30-39.9) Pure hypercholesterolemia Unspecified constipation Unspecified essential hypertension Unspecified hypothyroidism Unspecified sinusitis (chronic) Chronic sinusitis Urge incontinence of urine Social History Tobacco Use Smoking status: Never Smokeless tobacco: Never Vaping Use Vaping Use: Never used Substance Use Topics Alcohol use: No Comment: less than one drink per week Drug use: No Component Latest Ref Rng & Units 06/15/2022 03/14/2023 WBC 3.70 - 11.00 k/uL 7.48 4.55 RBC 3.90 - 5.20 m/uL 4.74 4.74 Hemoglobin 11.5 - 15.5 g/dL 13.9 13.9 Hematocrit 36.0 - 46.0 % 41.3 41.5 MCV 80.0 - 100.0 fL 87.1 87.6 MCH 26.0 - 34.0 pg 29.3 29.3 MCHC 30.5 - 36.0 g/dL 33.7 33.5 RDW-CV 11.5 - 15.0 % 12.1 11.8 Platelet Count 150 - 400 k/uL 251 200 MPV 9.0 - 12.7 fL 9.7 9.7 Neut% % 64.7 61.2 Abs Neut (ANC) 1.45 - 7.50 k/uL 4.83 2.78 Lymph% % 26.7 26.8 Abs Lymph 1.00 - 4.00 k/uL 2.00 1.22 Nelson% % 5.3 8.1 Abs Nelson <0.87 k/uL 0.40 0.37 Eosin% % 2.1 2.2 Abs Eosin <0.46 k/uL 0.16 0.10 Baso% % 0.9 1.5 Abs Baso <0.11 k/uL 0.07 0.07 Immature Gran % % 0.3 0.2 IMMATURE GRANS (ABS) <0.10 k/uL <0.03 <0.03 NRBC /100 WBC 0.0 0.0 Absolute nRBC <0.01 k/uL <0.01 <0.01 DTYPE Auto Auto Protein, Total 6.3 - 8.0 g/dL 6.7 6.8 Albumin 3.9 - 4.9 g/dL 4.4 4.2 Calcium 8.5 - 10.2 mg/dL 9.6 9.4 Bilirubin, Total 0.2 - 1.3 mg/dL 0.5 0.6 Alkaline Phosphatase 34 - 123 U/L 70 77 AST 13 - 35 U/L 19 13 ALT 7 - 38 U/L 17 15 Glucose 74 - 99 mg/dL 147 (H) 148 (H) BUN 7 - 21 mg/dL 20 10 Creatinine 0.58 - 0.96 mg/dL 0.68 0.69 Sodium 136 - 144 mmol/L 140 138 Potassium 3.7 - 5.1 mmol/L 3.9 3.9 Chloride 97 - 105 mmol/L 102 100 CO2 22 - 30 mmol/L 27 27 Anion Gap 9 - 18 mmol/L 11 11 eGFR >=60 mL/min/1.73m 92 91 Cholesterol, Total <200 mg/dL 137 121 Triglyceride <150 mg/dL 79 119 HDL Cholesterol >39 mg/dL 58 49 Non HDL Cholesterol <130 mg/dL 79 72 Fasting Time hrs 12 12 VLDL Cholesterol <30 mg/dL 16 24 TC:HDL Ratio <5.10 2.36 2.47 LDL Cholesterol <100 mg/dL 63 48 LDL:HDL Ratio <2.54 1.09 0.98 Creatinine, Ur Random (UCRR) 20.0 - 300.0 mg/dL 263.0 Albumin, Urine Random mg/L 13.2 Albumin/Creat Ratio <30 mg/g 5 Hemoglobin A1C 4.3 - 5.6 % 6.8 (H) 7.1 (H) Estimated Average Glucose mg/dL 148 157 Free T3 2.3 - 4.1 pg/mL 2.4 Free T4 0.9 - 1.7 ng/dL 1.5 TSH 0.270 - 4.200 mIU/L 0.848 0.839 Magnesium 1.7 - 2.3 mg/dL 1.8 ASSESSMENT/PLAN: 1. Acute non-recurrent pansinusitis - ICD9: 461.8, ICD10: J01.40 (primary diagnosis) Recommend ENT visit if not improving on current treatment. - CONSULT TO ENT 2. Acute asthmatic bronchitis - ICD9: 493.90, ICD10: J45.909 - ALBUTEROL SULFATE HFA 90 MCG/ACTUATION AEROSOL INHALER 3. Sinobronchitis - ICD9: 473.9, 490, ICD10: J32.9, J40 - Will begin treatment with as per antibiotic as written, see orders - Supportive care with plenty of fluids, rest, and analgesia prn. - Follow up if symptoms persist or worsen. - XR CHEST 2V FRONTAL/LAT - PREDNISONE 20 MG TABLET - INHALATIONAL SPACING DEVICE - ALBUTEROL SULFATE HFA 90 MCG/ACTUATION AEROSOL INHALER - DOXYCYCLINE HYCLATE 100 MG TABLET 4. Vertigo - ICD9: 780.4, ICD10: R42 Intermittent vertigo with position change is noted. Recommend continue with meclizine as needed. Continue with Jorge maneuvers. If not improving with treatments recommend ENT visit for further evaluation and treatment as indicated - PREDNISONE 20 MG TABLET - INHALATIONAL SPACING DEVICE - ALBUTEROL SULFATE HFA 90 MCG/ACTUATION AEROSOL INHALER - DOXYCYCLINE HYCLATE 100 MG TABLET 5. Abnormal CXR - ICD9: 793.2, ICD10: R93.89 [facility] made note of mass, possible hiatal hernia on chest x-ray, recommend chest x-ray for follow-up of this, verification - XR CHEST 2V FRONTAL/LAT Duglas Hall APRN.[employer]ING [employer]NER Medical Decision Making: Problems: Low: Acute, uncomplicated illness or injury Data: Unique source(s) for external note(s) reviewed: 1 Unique test result(s) reviewed: 2 Unique test(s) ordered: 1 Risk: Moderate: Drug management Medical Decision Making Level: 4 - Moderate documented in this encounter [facility] 11-19-2023 History of Present illness Narrative Marjorie Graham is a 73 year old female who presents for problem visit for c/o incontinence. HPI: Tried Myrbetriq for mixed incontinence. Most bothersome symptom is DERRICK. Gets up 3 times at night but that isn't as bothersome. Doesn't always feel empty. At night when gets up has small amounts, larger amount in am when awakens. Runs a little constipated but working w/ Dr. Mcguire for IBS. Drinks some water, probably not enough. Drinks 2 small sodas a day, one cup of coffee and milk. Tried ditropan, didn't help. Feels myrbbetriq helped minimally but DERRICK still main issue now. OB History T0 L1 SAB0 IAB0 Ectopic1 Multiple0 Live Births0 Comment: Adopted one child; has 2 children [employer] History LMP: Hysterectomy Age at Menarche: Age at First : Age at Menopause: [employer] History Comments: Sexual Activity: Yes; Male; hysterectomy Contraception: No contraception data on record PAST MEDICAL HISTORY Diagnosis Date Abdominal pain, epigastric Abdominal pain, left lower quadrant Acute gastritis without mention of hemorrhage Allergic rhinitis, cause unspecified Allergic rhinitis Diaphragmatic hernia without mention of obstruction or gangrene DM type 2 (diabetes mellitus, type 2) (HCC) Esophageal reflux 07/24/2005 Esophagitis, unspecified Intestinal disaccharidase deficiencies and disaccharide malabsorption Malignant neoplasm of breast (female), unspecified site 07/02/1985 Breast cancer Morbid obesity (HCC) Myalgia and myositis, unspecified Obesity (BMI 30-39.9) Pure hypercholesterolemia Unspecified constipation Unspecified essential hypertension Unspecified hypothyroidism Unspecified sinusitis (chronic) Chronic sinusitis Urge incontinence of urine PAST SURGICAL HISTORY Procedure Laterality Date APPENDECTOMY 1964 ARTHRP KNE CONDYLE&PLATU MEDIAL&LAT COMPARTMENTS Right 03/21/2018 ARTHRP KNE CONDYLE&PLATU MEDIAL&LAT COMPARTMENTS Left 09/05/2018 BIOPSY BREAST OPEN INCISIONAL Bx of breast, incisional BREAST BIOPSY CORE 05/11/06 U/S needle core right breast 11:30am CHOLECYSTECTOMY 1968 Cholecystectomy at age 17 COLONOSCOPY FLX DX W/COLLJ SPEC WHEN PFRMD 02/25/2002 Colonoscopy COLONOSCOPY FLX DX W/COLLJ SPEC WHEN PFRMD 05/31/07 EGD TRANSORAL BIOPSY SINGLE/MULTIPLE 09/02/10 EGD TRANSORAL BIOPSY SINGLE/MULTIPLE 07/19/11 ESOPHAGOGASTRODUODENOSCOPY TRANSORAL DIAGNOSTIC 08/19/2008 EGD ESOPHAGOGASTRODUODENOSCOPY TRANSORAL DIAGNOSTIC 08/13/15 EGD EXC TUMOR SOFT TISS NECK/THORAX SUBFASCIAL <5CM 11-18-07 lipoma of neck HYSTERECTOMY HX 06/15/11 [facility] LAMINECTOMY W/O FFD 07/03 VERT SEG LUMBAR 1989 MASTECTOMY 1986 left PAST SURGICAL HISTORY OF 2008 right knee arthroscopic surgery for torn meniscus SALPINGO-OOPHORECTOMY COMPL/PRTL UNI/BI SPX 1975 LEFT ---ECTOPIC FAMILY HISTORY Problem Relation Age of Onset Cancer Mother lung Heart Father Diabetes Maternal Grandmother Colon Cancer Other MATERNAL UNCLES Social History Tobacco Use Smoking status: Never Smokeless tobacco: Never Vaping Use Vaping Use: Never used Substance Use Topics Alcohol use: No Comment: less than one drink per week Drug use: No Current Outpatient Medications Medication Sig hyoscyamine (LEVSIN) 0.125 mg tablet Take 0.125 mg by mouth every 6 hours as needed. mirabegron (MYRBETRIQ) 25 mg Tb24 Take 1 tablet by mouth once daily. albuterol HFA (VENTOLIN HFA) 90 mcg/actuation inhaler Inhale 2 Puffs as instructed every 4 hours as needed. levothyroxine (SYNTHROID) 112 mcg tablet Take 1 tablet by mouth once daily. Take on empty stomach. For thyroid losartan-hydroCHLOROthiazide (HYZAAR) 100-25 mg per tablet Take 1 tablet by mouth once daily. metFORMIN ER (GLUCOPHAGE XR) 500 mg 24 hr tablet Taking total of 4 pills per day but in divided doses omeprazole (PRILOSEC) 40 mg capsule Take 1 capsule by mouth once daily. ondansetron orally disintegrating (ZOFRAN ODT) 4 mg disintegrating tablet Take 1 tablet by mouth every 8 hours as needed for nausea/vomiting. rosuvastatin (CRESTOR) 10 mg tablet Take 1 tablet by mouth once daily. phenazopyridine (PYRIDIUM) 200 mg tablet Take 1 tablet by mouth three times daily as needed. fluticasone (FLONASE) 50 mcg/actuation nasal spray Use 2 Sprays in each nostril once daily. As directed dicyclomine (BENTYL) 10 mg capsule Take 1 capsule by mouth twice daily as needed. buPROPion XL (WELLBUTRIN XL) 300 mg 24 hr tablet Take 1 tablet by mouth once daily. scopolamine (TRANSDERM-SCOP) patch 1.5 mg/72 hr (delivers 1 mg over 3 days) Apply 1 Patch as directed every 72 hours. Apply patch to skin behind ear 4hrs prior to travel. montelukast (SINGULAIR) 10 mg tablet Take 1 tablet by mouth daily at bedtime. celecoxib (CELEBREX) 200 mg capsule TAKE 1 TABLET BY MOUTH ONCE A DAY WITH FOOD ivermectin (SOOLANTRA) 1 % crea Apply 1 application to affected area once daily. multivitamin tablet Take 1 tablet by mouth once daily. Cholecalciferol, Vitamin D3, (VITAMIN D) 1,000 unit cap Take 1 capsule by mouth once daily. cholestyramine (QUESTRAN) 4 gram packet Take 1 Packet by mouth three times daily with meals. cetirizine (ZYRTEC) 10 mg tablet Take 10 mg by mouth once daily. acetaminophen 500 mg tablet Take 500 mg by mouth every 6 hours as needed. sucralfate (CARAFATE) 1 gram tablet Take 1 tablet by mouth four times daily as needed. as directed (Patient not taking: Reported on 11/19/2023) No current facility-administered medications for this visit. Allergies As of Date: 11/19/2023 Allergen Noted Reaction ASPIRIN 12/02/2002 CIPROFLOXACIN 07/03/2019 Hives METFORMIN 06/06/2010 GI Upset PENICILLINS 11/06/2002 Unknown SULFA (SULFONAMIDE ANTIBIOTICS) 11/06/2002 Unknown ZOCOR [SIMVASTATIN] 07/21/2005 Fully Assessed 09/25/2023 Allergies and current medication updated:Yes EXAM: BP 126/72 Wt 193 lb (87.5kg) GENERAL: pleasant, female in no apparent distress ASSESSMENT AND PLAN: mixed incontinence consult urogyn, failed 2 meds and DERRICK is main complaint. cont. myrbetriq for now at her request recommend pelvic floor PT, order in Consuelo Hilario MD documented in this encounter [facility] 09-25-2023 Instructions Fifi Green MD - 09/25/2023 10:57 AM EDT May try Metamucil in the evening and Miralax in the morning to help prevent swinging back and forth between diarrhea and constipation. documented in this encounter [facility] 09-25-2023 History of Present illness Narrative This note was created using Deporvillageriter. Subjective Marjorie Graham is a 73 year old female. Patient presents with: 6 mo follow up SUBJECTIVE: Marjorie Graham is a 73 year old year old lady here today for 6 month follow up appointment for review of medical conditions. Started back to exercises at a gym. Energy level up. Metformin 3 daily and sometimes can get in 4 pills per day. Bowels issues--?IBS. Will see Dr. Mcguire. Swings back and forth between constipation and diarrhea. Gets cramping pains. PAST MEDICAL HISTORY Diagnosis Date Abdominal pain, epigastric Abdominal pain, left lower quadrant Acute gastritis without mention of hemorrhage Allergic rhinitis, cause unspecified Allergic rhinitis Diaphragmatic hernia without mention of obstruction or gangrene DM type 2 (diabetes mellitus, type 2) (HCC) Esophageal reflux 07/24/2005 Esophagitis, unspecified Intestinal disaccharidase deficiencies and disaccharide malabsorption Malignant neoplasm of breast (female), unspecified site 07/02/1985 Breast cancer Morbid obesity (HCC) Myalgia and myositis, unspecified Obesity (BMI 30-39.9) Pure hypercholesterolemia Unspecified constipation Unspecified essential hypertension Unspecified hypothyroidism Unspecified sinusitis (chronic) Chronic sinusitis Current Outpatient Medications Medication Sig mirabegron (MYRBETRIQ) 25 mg Tb24 Take 1 tablet by mouth once daily. albuterol HFA (VENTOLIN HFA) 90 mcg/actuation inhaler Inhale 2 Puffs as instructed every 4 hours as needed. levothyroxine (SYNTHROID) 112 mcg tablet Take 1 tablet by mouth once daily. Take on empty stomach. For thyroid losartan-hydroCHLOROthiazide (HYZAAR) 100-25 mg per tablet Take 1 tablet by mouth once daily. metFORMIN ER (GLUCOPHAGE XR) 500 mg 24 hr tablet Taking total of 4 pills per day but in divided doses omeprazole (PRILOSEC) 40 mg capsule Take 1 capsule by mouth once daily. ondansetron orally disintegrating (ZOFRAN ODT) 4 mg disintegrating tablet Take 1 tablet by mouth every 8 hours as needed for nausea/vomiting. rosuvastatin (CRESTOR) 10 mg tablet Take 1 tablet by mouth once daily. phenazopyridine (PYRIDIUM) 200 mg tablet Take 1 tablet by mouth three times daily as needed. fluticasone (FLONASE) 50 mcg/actuation nasal spray Use 2 Sprays in each nostril once daily. As directed dicyclomine (BENTYL) 10 mg capsule Take 1 capsule by mouth twice daily as needed. buPROPion XL (WELLBUTRIN XL) 300 mg 24 hr tablet Take 1 tablet by mouth once daily. scopolamine (TRANSDERM-SCOP) patch 1.5 mg/72 hr (delivers 1 mg over 3 days) Apply 1 Patch as directed every 72 hours. Apply patch to skin behind ear 4hrs prior to travel. montelukast (SINGULAIR) 10 mg tablet Take 1 tablet by mouth daily at bedtime. celecoxib (CELEBREX) 200 mg capsule TAKE 1 TABLET BY MOUTH ONCE A DAY WITH FOOD sucralfate (CARAFATE) 1 gram tablet Take 1 tablet by mouth four times daily as needed. as directed ivermectin (SOOLANTRA) 1 % crea Apply 1 application to affected area once daily. multivitamin tablet Take 1 tablet by mouth once daily. Cholecalciferol, Vitamin D3, (VITAMIN D) 1,000 unit cap Take 1 capsule by mouth once daily. cholestyramine (QUESTRAN) 4 gram packet Take 1 Packet by mouth three times daily with meals. cetirizine (ZYRTEC) 10 mg tablet Take 10 mg by mouth once daily. acetaminophen 500 mg tablet Take 500 mg by mouth every 6 hours as needed. No current facility-administered medications for this visit. Review of Systems Objective BP 120/74 Pulse 80 Resp 16 Ht 157.5 cm (5' 2) Wt 86.2 kg (190 lb) BMI 34.75 kg/m Last 5 Encounter Wt Readings: Date: Wt: 09/25/2023 86.2 kg (190 lb) 09/18/2023 86.2 kg (190 lb) 08/06/2023 86.6 kg (191 lb) 07/21/2022 85.7 kg (189 lb) 01/18/2021 83.5 kg (184 lb) No waist measurement recorded Estimated body mass index is 34.75 kg/m as calculated from the following: Height as of this encounter: 157.5 cm (5' 2). Weight as of this encounter: 86.2 kg (190 lb). Last 5 Encounter BP Readings: Date: BP: 09/25/2023 120/74 09/18/2023 128/82 08/06/2023 130/82 07/21/2022 129/83 01/18/2021 110/60 Physical Exam Constitutional: Appearance: Normal appearance. HENT: Head: Normocephalic. Eyes: Conjunctiva/sclera: Conjunctivae normal. Cardiovascular: Rate and Rhythm: Normal rate and regular rhythm. Heart sounds: Normal heart sounds. Pulmonary: Effort: Pulmonary effort is normal. Breath sounds: Normal breath sounds. Musculoskeletal: Right lower leg: No edema. Left lower leg: No edema. Skin: General: Skin is warm and dry. Neurological: General: No focal deficit present. Mental Status: She is alert and oriented to person, place, and time. Psychiatric: Attention and Perception: Attention and perception normal. Mood and Affect: Mood and affect normal. Speech: Speech normal. Behavior: Behavior normal. Thought Content: Thought content normal. Cognition and Memory: Cognition normal. Judgment: Judgment normal. Latest Ref Rng 06/15/2022 03/14/2023 09/21/2023 WBC 3.70 - 11.00 k/uL 7.48 4.55 6.64 RBC 3.90 - 5.20 m/uL 4.74 4.74 4.82 Hemoglobin 11.5 - 15.5 g/dL 13.9 13.9 13.7 Hematocrit 36.0 - 46.0 % 41.3 41.5 42.9 MCV 80.0 - 100.0 fL 87.1 87.6 89.0 MCH 26.0 - 34.0 pg 29.3 29.3 28.4 MCHC 30.5 - 36.0 g/dL 33.7 33.5 31.9 RDW-CV 11.5 - 15.0 % 12.1 11.8 12.0 Platelet Count 150 - 400 k/uL 251 200 245 MPV 9.0 - 12.7 fL 9.7 9.7 10.3 Neut% % 64.7 61.2 Abs Neut (ANC) 1.45 - 7.50 k/uL 4.83 2.78 Lymph% % 26.7 26.8 Abs Lymph 1.00 - 4.00 k/uL 2.00 1.22 Nelson% % 5.3 8.1 Abs Nelson <0.87 k/uL 0.40 0.37 Eosin% % 2.1 2.2 Abs Eosin <0.46 k/uL 0.16 0.10 Baso% % 0.9 1.5 Abs Baso <0.11 k/uL 0.07 0.07 Immature Gran % % 0.3 0.2 IMMATURE GRANS (ABS) <0.10 k/uL <0.03 <0.03 NRBC /100 WBC 0.0 0.0 Absolute nRBC <0.01 k/uL <0.01 <0.01 <0.01 DTYPE Auto Auto Protein, Total 6.3 - 8.0 g/dL 6.7 6.8 7.0 Albumin 3.9 - 4.9 g/dL 4.4 4.2 4.2 Calcium 8.5 - 10.2 mg/dL 9.6 9.4 10.3 (H) Bilirubin, Total 0.2 - 1.3 mg/dL 0.5 0.6 0.5 Alkaline Phosphatase 34 - 123 U/L 70 77 76 AST 13 - 35 U/L 19 13 18 ALT 7 - 38 U/L 17 15 18 Glucose 74 - 99 mg/dL 147 (H) 148 (H) 183 (H) BUN 7 - 21 mg/dL 20 10 20 Creatinine 0.58 - 0.96 mg/dL 0.68 0.69 0.80 Sodium 136 - 144 mmol/L 140 138 141 Potassium 3.7 - 5.1 mmol/L 3.9 3.9 4.8 Chloride 97 - 105 mmol/L 102 100 102 CO2 22 - 30 mmol/L 27 27 29 Anion Gap 9 - 18 mmol/L 11 11 10 eGFR >=60 mL/min/1.73m 92 91 77 Cholesterol, Total <200 mg/dL 137 121 138 Triglyceride <150 mg/dL 79 119 97 HDL Cholesterol >39 mg/dL 58 49 56 Non HDL Cholesterol <130 mg/dL 79 72 82 Fasting Time hrs 12 12 12 VLDL Cholesterol <30 mg/dL 16 24 19 TC:HDL Ratio <5.10 2.36 2.47 2.46 LDL Cholesterol <100 mg/dL 63 48 63 LDL:HDL Ratio <2.54 1.09 0.98 1.13 Creatinine, Ur Random (UCRR) 20.0 - 300.0 mg/dL 263.0 Albumin, Urine Random mg/L 13.2 Albumin/Creat Ratio <30 mg/g 5 Hemoglobin A1C 4.3 - 5.6 % 6.8 (H) 7.1 (H) 7.8 (H) Estimated Average Glucose mg/dL 148 157 177 Free T3 2.3 - 4.1 pg/mL 2.4 2.6 Free T4 0.9 - 1.7 ng/dL 1.5 1.4 TSH 0.270 - 4.200 mIU/L 0.848 0.839 2.510 Magnesium 1.7 - 2.3 mg/dL 1.8 Legend: (H) High Assessment and Plan Encounter Diagnosis ICD-10-CM 1. Type 2 diabetes mellitus without complication, without long-term current use of insulin (HCC) E11.9 COMP METABOLIC PANEL HGB A1C ALBUMIN/CREAT RATIO RND UR 2. Acquired hypothyroidism E03.9 TSH BLD T4 FREE/FREE THYROX T3 FREE BLD 3. Alternating constipation and diarrhea R19.8 4. Pure hypercholesterolemia E78.00 LIPID PANEL BASIC 5. Primary hypertension I10 COMP METABOLIC PANEL CBC Above issues addressed with patient. Patient involved in shared decision making for management of medical issues. History and medications reviewed. Epic updated as needed Refills and/or prescriptions taken care of and meds adjusted as indicated after reviewed history, exam and labs. Health Maintenance reviewed. Updated record and/or ordered tests as recorded. Encouraged on efforts at healthy diet and regular exercise and adequate sleep. Fifi Green MD documented in this encounter [facility] 09-18-2023 History of Present illness Narrative Marjorie is a 73 year old who presents for an annual gynecologic exam without complaints. Doesn't feel like the ditropan is helping at thit time. Postmenopausal: Yes since age 50s HRT use: Yes, low dose estrogen How lon months. Last Pap: 06/07/2006 normal HPV: 06/05/2006 negative History of abnormal pap: No Last mammogram: 2022 normal History of abnormal mammogram: Yes Sexually active: No Hot flashes: No Night sweats: No Vaginal dryness: No Insomnia: Yes OB History T0 L1 SAB0 IAB0 Ectopic1 Multiple0 Live Births0 Comment: Adopted one child; has 2 children [employer] History LMP: Hysterectomy Age at Menarche: Age at First : Age at Menopause: [employer] History Comments: Sexual Activity: Yes; Male; hysterectomy Contraception: No contraception data on record PAST MEDICAL HISTORY Diagnosis Date Abdominal pain, epigastric Abdominal pain, left lower quadrant Acute gastritis without mention of hemorrhage Allergic rhinitis, cause unspecified Allergic rhinitis Diaphragmatic hernia without mention of obstruction or gangrene DM type 2 (diabetes mellitus, type 2) (HCC) Esophageal reflux 07/24/2005 Esophagitis, unspecified Intestinal disaccharidase deficiencies and disaccharide malabsorption Malignant neoplasm of breast (female), unspecified site 07/02/1985 Breast cancer Morbid obesity (HCC) Myalgia and myositis, unspecified Obesity (BMI 30-39.9) Pure hypercholesterolemia Unspecified constipation Unspecified essential hypertension Unspecified hypothyroidism Unspecified sinusitis (chronic) Chronic sinusitis PAST SURGICAL HISTORY Procedure Laterality Date APPENDECTOMY 1964 ARTHRP KNE CONDYLE&PLATU MEDIAL&LAT COMPARTMENTS Right 03/21/2018 ARTHRP KNE CONDYLE&PLATU MEDIAL&LAT COMPARTMENTS Left 09/05/2018 BIOPSY BREAST OPEN INCISIONAL Bx of breast, incisional BREAST BIOPSY CORE 05/11/06 U/S needle core right breast 11:30am CHOLECYSTECTOMY 1968 Cholecystectomy at age 17 COLONOSCOPY FLX DX W/COLLJ SPEC WHEN PFRMD 02/25/2002 Colonoscopy COLONOSCOPY FLX DX W/COLLJ SPEC WHEN PFRMD 05/31/07 EGD TRANSORAL BIOPSY SINGLE/MULTIPLE 09/02/10 EGD TRANSORAL BIOPSY SINGLE/MULTIPLE 07/19/11 ESOPHAGOGASTRODUODENOSCOPY TRANSORAL DIAGNOSTIC 08/19/2008 EGD ESOPHAGOGASTRODUODENOSCOPY TRANSORAL DIAGNOSTIC 08/13/15 EGD EXC TUMOR SOFT TISS NECK/THORAX SUBFASCIAL <5CM 11-18-07 lipoma of neck HYSTERECTOMY HX 06/15/11 [facility] LAMINECTOMY W/O FFD 07/03 VERT SEG LUMBAR 1989 MASTECTOMY 1986 left PAST SURGICAL HISTORY OF 2008 right knee arthroscopic surgery for torn meniscus SALPINGO-OOPHORECTOMY COMPL/PRTL UNI/BI SPX 1975 LEFT ---ECTOPIC FAMILY HISTORY Problem Relation Age of Onset Cancer Mother lung Heart Father Diabetes Maternal Grandmother Colon Cancer Other MATERNAL UNCLES SOCIAL HISTORY Social History Tobacco Use Smoking status: Never Smokeless tobacco: Never Vaping Use Vaping Use: Never used Substance Use Topics Alcohol use: No Comment: less than one drink per week Drug use: No REVIEW OF SYSTEMS Abdomen: some abdominal pain, sees GI, no change from baseline Bladder: urinary frequency takes oxybutynin and initially had some improvement and now symptoms are returning. Breast: No breast lumps, nipple d/c, overlying skin changes, redness or skin retraction Allergies and current medication updated:Yes TEACHING PHYSICIAN NOTE OF PERSONAL INVOLVEMENT IN CARE: I have personally seen and examined the patient and performed the medical decision-making components. I have reviewed the medical student documentation and verified the findings in the note as written. Any additions or changes are noted in bold/italics. Signature: Consuelo Hilario Date: 09/18/2023 Time: 1:54 PM EXAM: BP 128/82 Ht 5' 2.25 (1.58m) Wt 190 lb (86.2kg) BMI 34.48 kg/(m^2). GENERAL: pleasant, female in no apparent distress HEENT: Normocephalic, atraumatic, mucus membranes moist, and no lesions BREAST: soft, non-tender, symmetric, no dominant mass, normal nipple-areolar complex, no lymphadenopathy, and no nipple discharge CHEST: Normal inspiratory effort ABDOMEN: soft, non-tender, and no masses PELVIC: external genitalia normal, normal Bartholin's glands, urethra, Melissa's glands, no vulvar lesions, good vaginal support, physiologic discharge present, normal appearing perineal body and perianal region, cervix surgically absent BIMANUAL: no adnexal masses, non-tender, and uterus surgically absent ASSESSMENT/PLAN: 1) Health maintenance: Pap/HPV screening no longer needed Mammogram ordered 2) Follow up one year or sooner as needed trial myrbetriqu Consuelo Hilario MD documented in this encounter [facility] 08-06-2023 Instructions Duglas Hall APRN.MARKETING PLANNER - 08/06/2023 11:51 AM EST Take dairy products out of your diet for a week to see if this helps your symptoms. If this is not making a difference you can resume dairy products. Then try stopping wheat products for a week to see if this helps. If this is not helping may resume wheat products. documented in this encounter [facility] 08-06-2023 History of Present illness Narrative SUBJECTIVE: Diabetic Foot Exam due on 01/18/2022 Advance Directive Discussion due on 07/02/2023 BP Controlled (<130/80) due on 07/21/2023 HPI Marjorie Graham is a 73 year old female. PMH significant for ACTIVE PROBLEM LIST Dysmetabolic Syndrome X Fibromyalgia Pure Hypercholesterolemia Acquired Hypothyroidism Reactive Depression Primary Hypertension History of Breast Cancer Esophageal Reflux Degenerative Joint Disease of Cervical Spine Type 2 Diabetes Mellitus Without Complication, Without Long-Term Current Use of Insulin (Hcc) Bladder Irritability Urge Incontinence of Urine Obesity, Class I, Bmi 30-34.9 Presents today regarding diarrhea and constipation. Would like referral to gastroenterology Dr. Mcguire. She notes a chronic history of bowel problems. Notes alternating diarrhea and constipation for last month or so. Typical bowel movements are every other day. Then may have 1 or 2 loose stools. Notes crampy abdominal pain. Occasional nausea. No vomiting. No BRBPR. Abdominal discomfort can be epigastric or lower abdominal. No recent illness. Afebrile. No recent hospitalization or antibiotic use. Review of Systems Constitutional: Negative. Respiratory: Negative. Cardiovascular: Negative. Gastrointestinal: Positive for abdominal pain, constipation and diarrhea. Endocrine: Negative. Objective BP 130/82 Pulse 71 Resp 16 Wt 86.6 kg (191 lb) SpO2 95% BMI 34.93 kg/m Physical Exam Vitals and nursing note reviewed. Constitutional: Appearance: Normal appearance. HENT: Head: Normocephalic and atraumatic. Eyes: Conjunctiva/sclera: Conjunctivae normal. Neck: Thyroid: No thyromegaly. Vascular: Normal carotid pulses. No JVD. Cardiovascular: Rate and Rhythm: Normal rate and regular rhythm. Pulses: Carotid pulses are 2+ on the right side and 2+ on the left side. Radial pulses are 2+ on the right side and 2+ on the left side. Heart sounds: Normal heart sounds. Pulmonary: Effort: Pulmonary effort is normal. Breath sounds: Normal breath sounds. Abdominal: General: Bowel sounds are normal. There is no distension. Palpations: Abdomen is soft. There is no mass. Tenderness: There is no abdominal tenderness. There is no guarding or rebound. Musculoskeletal: Right lower leg: No edema. Left lower leg: No edema. Skin: General: Skin is warm and dry. Neurological: General: No focal deficit present. Mental Status: She is alert and oriented to person, place, and time. ALLERGIES Allergen Reactions Aspirin Tinnitus, hearing loss AD when on mary jo doses. Is able to take ASA now without any reaction. Ciprofloxacin Hives reports hives now after completing cipro 06/23/2019 Metformin GI Upset made her ill; stomach upset with pain and diarrhea- has taken since with no issue Penicillins Unknown hives Sulfa (Sulfonamide * Unknown hives Zocor [Simvastatin] myalgias Medications albuterol HFA (VENTOLIN HFA) 90 mcg/actuation inhaler Inhale 2 Puffs as instructed every 4 hours as needed. levothyroxine (SYNTHROID) 112 mcg tablet Take 1 tablet by mouth once daily. Take on empty stomach. For thyroid losartan-hydroCHLOROthiazide (HYZAAR) 100-25 mg per tablet Take 1 tablet by mouth once daily. metFORMIN ER (GLUCOPHAGE XR) 500 mg 24 hr tablet Taking total of 4 pills per day but in divided doses omeprazole (PRILOSEC) 40 mg capsule Take 1 capsule by mouth once daily. ondansetron orally disintegrating (ZOFRAN ODT) 4 mg disintegrating tablet Take 1 tablet by mouth every 8 hours as needed for nausea/vomiting. rosuvastatin (CRESTOR) 10 mg tablet Take 1 tablet by mouth once daily. oxybutynin XL (DITROPAN XL) 5 mg 24 hr tablet Take 1 tablet by mouth once daily. (N32.89) Bladder irritability (N39.41) Urge incontinence of urine phenazopyridine (PYRIDIUM) 200 mg tablet Take 1 tablet by mouth three times daily as needed. fluticasone (FLONASE) 50 mcg/actuation nasal spray Use 2 Sprays in each nostril once daily. As directed dicyclomine (BENTYL) 10 mg capsule Take 1 capsule by mouth twice daily as needed. buPROPion XL (WELLBUTRIN XL) 300 mg 24 hr tablet Take 1 tablet by mouth once daily. scopolamine (TRANSDERM-SCOP) patch 1.5 mg/72 hr (delivers 1 mg over 3 days) Apply 1 Patch as directed every 72 hours. Apply patch to skin behind ear 4hrs prior to travel. montelukast (SINGULAIR) 10 mg tablet Take 1 tablet by mouth daily at bedtime. celecoxib (CELEBREX) 200 mg capsule TAKE 1 TABLET BY MOUTH ONCE A DAY WITH FOOD ivermectin (SOOLANTRA) 1 % crea Apply 1 application to affected area once daily. multivitamin tablet Take 1 tablet by mouth once daily. Cholecalciferol, Vitamin D3, (VITAMIN D) 1,000 unit cap Take 1 capsule by mouth once daily. cholestyramine (QUESTRAN) 4 gram packet Take 1 Packet by mouth three times daily with meals. cetirizine (ZYRTEC) 10 mg tablet Take 10 mg by mouth once daily. acetaminophen 500 mg tablet Take 500 mg by mouth every 6 hours as needed. sucralfate (CARAFATE) 1 gram tablet Take 1 tablet by mouth four times daily as needed. as directed (Patient not taking: Reported on 08/06/2023) PAST MEDICAL HISTORY Diagnosis Date Abdominal pain, epigastric Abdominal pain, left lower quadrant Acute gastritis without mention of hemorrhage Allergic rhinitis, cause unspecified Allergic rhinitis Diaphragmatic hernia without mention of obstruction or gangrene DM type 2 (diabetes mellitus, type 2) (HCC) Esophageal reflux 07/24/2005 Esophagitis, unspecified Intestinal disaccharidase deficiencies and disaccharide malabsorption Malignant neoplasm of breast (female), unspecified site 07/02/1985 Breast cancer Morbid obesity (HCC) Myalgia and myositis, unspecified Obesity (BMI 30-39.9) Pure hypercholesterolemia Unspecified constipation Unspecified essential hypertension Unspecified hypothyroidism Unspecified sinusitis (chronic) Chronic sinusitis Social History Tobacco Use Smoking status: Never Smokeless tobacco: Never Vaping Use Vaping Use: Never used Substance Use Topics Alcohol use: No Comment: less than one drink per week Drug use: No Component Latest Ref Rng & Units 06/15/2022 03/14/2023 WBC 3.70 - 11.00 k/uL 7.48 4.55 RBC 3.90 - 5.20 m/uL 4.74 4.74 Hemoglobin 11.5 - 15.5 g/dL 13.9 13.9 Hematocrit 36.0 - 46.0 % 41.3 41.5 MCV 80.0 - 100.0 fL 87.1 87.6 MCH 26.0 - 34.0 pg 29.3 29.3 MCHC 30.5 - 36.0 g/dL 33.7 33.5 RDW-CV 11.5 - 15.0 % 12.1 11.8 Platelet Count 150 - 400 k/uL 251 200 MPV 9.0 - 12.7 fL 9.7 9.7 Neut% % 64.7 61.2 Abs Neut (ANC) 1.45 - 7.50 k/uL 4.83 2.78 Lymph% % 26.7 26.8 Abs Lymph 1.00 - 4.00 k/uL 2.00 1.22 Nelson% % 5.3 8.1 Abs Nelson <0.87 k/uL 0.40 0.37 Eosin% % 2.1 2.2 Abs Eosin <0.46 k/uL 0.16 0.10 Baso% % 0.9 1.5 Abs Baso <0.11 k/uL 0.07 0.07 Immature Gran % % 0.3 0.2 IMMATURE GRANS (ABS) <0.10 k/uL <0.03 <0.03 NRBC /100 WBC 0.0 0.0 Absolute nRBC <0.01 k/uL <0.01 <0.01 DTYPE Auto Auto Protein, Total 6.3 - 8.0 g/dL 6.7 6.8 Albumin 3.9 - 4.9 g/dL 4.4 4.2 Calcium 8.5 - 10.2 mg/dL 9.6 9.4 Bilirubin, Total 0.2 - 1.3 mg/dL 0.5 0.6 Alkaline Phosphatase 34 - 123 U/L 70 77 AST 13 - 35 U/L 19 13 ALT 7 - 38 U/L 17 15 Glucose 74 - 99 mg/dL 147 (H) 148 (H) BUN 7 - 21 mg/dL 20 10 Creatinine 0.58 - 0.96 mg/dL 0.68 0.69 Sodium 136 - 144 mmol/L 140 138 Potassium 3.7 - 5.1 mmol/L 3.9 3.9 Chloride 97 - 105 mmol/L 102 100 CO2 22 - 30 mmol/L 27 27 Anion Gap 9 - 18 mmol/L 11 11 eGFR >=60 mL/min/1.73m 92 91 Cholesterol, Total <200 mg/dL 137 121 Triglyceride <150 mg/dL 79 119 HDL Cholesterol >39 mg/dL 58 49 Non HDL Cholesterol <130 mg/dL 79 72 Fasting Time hrs 12 12 VLDL Cholesterol <30 mg/dL 16 24 TC:HDL Ratio <5.10 2.36 2.47 LDL Cholesterol <100 mg/dL 63 48 LDL:HDL Ratio <2.54 1.09 0.98 Creatinine, Ur Random (UCRR) 20.0 - 300.0 mg/dL 263.0 Albumin, Urine Random mg/L 13.2 Albumin/Creat Ratio <30 mg/g 5 Hemoglobin A1C 4.3 - 5.6 % 6.8 (H) 7.1 (H) Estimated Average Glucose mg/dL 148 157 Free T3 2.3 - 4.1 pg/mL 2.4 Free T4 0.9 - 1.7 ng/dL 1.5 TSH 0.270 - 4.200 mIU/L 0.848 0.839 Magnesium 1.7 - 2.3 mg/dL 1.8 ASSESSMENT/PLAN: 1. Alternating constipation and diarrhea - ICD9: 787.99, ICD10: R19.8 (primary diagnosis) - CONSULT TO GASTROENTEROLOGY 2. Change in bowel habits - ICD9: 787.99, ICD10: R19.4 - CONSULT TO GASTROENTEROLOGY Notes change in bowel habits for the last month or 2. Thinks may be irritable bowel. Does use Bentyl for crampy abdominal pain. Notes has had GI issues since abdominal surgery in the past. Colonoscopy 2019. Endorse trial of excluding dairy then wheat from her diet to see if this helps with symptoms. Recommend plenty of fluids, fiber through diet or supplements. Schedule appointment with corncob pipes assembler. Duglas Hall APRN.CNS Medical Decision Making: Problems: Low: Acute, uncomplicated illness or injury Risk: Moderate: Drug management Medical Decision Making Level: 3 - Low documented in this encounter [facility] 05-22-2023 Miscellaneous Notes Order pended, please file if agreeable. Beti Peralta MA documented in this encounter [facility] 03-23-2023 History of Present illness Narrative This note was created using Deporvillageriter. Subjective Marjorie Graham is a 72 year old female. Patient presents with: F/U 6 months SUBJECTIVE: Marjorie Graham is a 72 year old year old lady here today for 6 month follow up appointment for review of medical conditions. Asthma in childhood but no problems till recently and [place] 137 steps [place] and felt the wheezing in her chest. Allergies are bad this time of the year. OTC meds not adequate. Claritin alternating with Lisa, Flonase and saline rinses--still not better. Sometimes feels like out of body experience. Mother in law recently. Had Hep B series at [employer] for work. 2013. See assessment and plan for other issues addressed. PAST MEDICAL HISTORY Diagnosis Date Abdominal pain, epigastric Abdominal pain, left lower quadrant Acute gastritis without mention of hemorrhage Allergic rhinitis, cause unspecified Allergic rhinitis Diaphragmatic hernia without mention of obstruction or gangrene DM type 2 (diabetes mellitus, type 2) (HCC) Esophageal reflux 07/24/2005 Esophagitis, unspecified Intestinal disaccharidase deficiencies and disaccharide malabsorption Malignant neoplasm of breast (female), unspecified site 07/02/1985 Breast cancer Morbid obesity (HCC) Myalgia and myositis, unspecified Obesity (BMI 30-39.9) Pure hypercholesterolemia Unspecified constipation Unspecified essential hypertension Unspecified hypothyroidism Unspecified sinusitis (chronic) Chronic sinusitis Current Outpatient Medications Medication Sig celecoxib (CELEBREX) 200 mg capsule TAKE 1 TABLET BY MOUTH ONCE A DAY WITH FOOD levothyroxine (SYNTHROID) 112 mcg tablet Take 1 tablet by mouth once daily. Take on empty stomach. For thyroid losartan-hydroCHLOROthiazide (HYZAAR) 100-25 mg per tablet Take 1 tablet by mouth once daily. metFORMIN ER (GLUCOPHAGE XR) 500 mg 24 hr tablet Taking total of 4 pills per day but in divided doses omeprazole (PRILOSEC) 40 mg capsule Take 1 capsule by mouth once daily. ondansetron orally disintegrating (ZOFRAN ODT) 4 mg disintegrating tablet Take 1 tablet by mouth every 8 hours as needed for nausea/vomiting. rosuvastatin (CRESTOR) 10 mg tablet Take 1 tablet by mouth once daily. oxybutynin XL (DITROPAN XL) 5 mg 24 hr tablet Take 1 tablet by mouth once daily. (N32.89) Bladder irritability (N39.41) Urge incontinence of urine phenazopyridine (PYRIDIUM) 200 mg tablet Take 1 tablet by mouth three times daily as needed. fluticasone (FLONASE) 50 mcg/actuation nasal spray Use 2 Sprays in each nostril once daily. As directed dicyclomine (BENTYL) 10 mg capsule Take 1 capsule by mouth twice daily as needed. buPROPion XL (WELLBUTRIN XL) 300 mg 24 hr tablet Take 1 tablet by mouth once daily. scopolamine (TRANSDERM-SCOP) patch 1.5 mg/72 hr (delivers 1 mg over 3 days) Apply 1 Patch as directed every 72 hours. Apply patch to skin behind ear 4hrs prior to travel. montelukast (SINGULAIR) 10 mg tablet Take 1 tablet by mouth daily at bedtime. ivermectin (SOOLANTRA) 1 % crea Apply 1 application to affected area once daily. multivitamin tablet Take 1 tablet by mouth once daily. Cholecalciferol, Vitamin D3, (VITAMIN D) 1,000 unit cap Take 1 capsule by mouth once daily. cholestyramine (QUESTRAN) 4 gram packet Take 1 Packet by mouth three times daily with meals. cetirizine (ZYRTEC) 10 mg tablet Take 10 mg by mouth once daily. acetaminophen 500 mg tablet Take 500 mg by mouth every 6 hours as needed. sucralfate (CARAFATE) 1 gram tablet Take 1 tablet by mouth four times daily as needed. as directed No current facility-administered medications for this visit. Review of Systems Objective BP (P) 132/78 (BP Site: Left Arm, BP Position: Sitting, BP Cuff Size: Large Adult) Pulse (P) 72 Wt (P) 85.7 kg (189 lb) BMI (P) 34.57 kg/m Physical Exam Constitutional: Appearance: Normal appearance. HENT: Head: Normocephalic. Eyes: Conjunctiva/sclera: Conjunctivae normal. Cardiovascular: Rate and Rhythm: Normal rate and regular rhythm. Heart sounds: Normal heart sounds. Pulmonary: Effort: Pulmonary effort is normal. Breath sounds: Normal breath sounds. Musculoskeletal: Right lower leg: No edema. Left lower leg: No edema. Skin: General: Skin is warm and dry. Neurological: General: No focal deficit present. Mental Status: She is alert and oriented to person, place, and time. Psychiatric: Mood and Affect: Mood normal. Behavior: Behavior normal. Thought Content: Thought content normal. Judgment: Judgment normal. Component Latest Ref Rng & Units 06/07/2021 07/28/2021 06/15/2022 03/14/2023 WBC 3.70 - 11.00 k/uL 7.48 4.55 RBC 3.90 - 5.20 m/uL 4.74 4.74 Hemoglobin 11.5 - 15.5 g/dL 13.9 13.9 Hematocrit 36.0 - 46.0 % 41.3 41.5 MCV 80.0 - 100.0 fL 87.1 87.6 MCH 26.0 - 34.0 pg 29.3 29.3 MCHC 30.5 - 36.0 g/dL 33.7 33.5 RDW-CV 11.5 - 15.0 % 12.1 11.8 Platelet Count 150 - 400 k/uL 251 200 MPV 9.0 - 12.7 fL 9.7 9.7 Neut% % 64.7 61.2 Abs Neut (ANC) 1.45 - 7.50 k/uL 4.83 2.78 Lymph% % 26.7 26.8 Abs Lymph 1.00 - 4.00 k/uL 2.00 1.22 Nelson% % 5.3 8.1 Abs Nelson <0.87 k/uL 0.40 0.37 Eosin% % 2.1 2.2 Abs Eosin <0.46 k/uL 0.16 0.10 Baso% % 0.9 1.5 Abs Baso <0.11 k/uL 0.07 0.07 Immature Gran % % 0.3 0.2 IMMATURE GRANS (ABS) <0.10 k/uL <0.03 <0.03 NRBC /100 WBC 0.0 0.0 Absolute nRBC <0.01 k/uL <0.01 <0.01 DTYPE Auto Auto Protein, Total 6.3 - 8.0 g/dL 6.7 6.8 Albumin 3.9 - 4.9 g/dL 4.4 4.2 Calcium 8.5 - 10.2 mg/dL 9.6 9.4 Bilirubin, Total 0.2 - 1.3 mg/dL 0.5 0.6 Alkaline Phosphatase 34 - 123 U/L 70 77 AST 13 - 35 U/L 19 13 ALT 7 - 38 U/L 17 15 Glucose 74 - 99 mg/dL 147 (H) 148 (H) BUN 7 - 21 mg/dL 20 10 Creatinine 0.58 - 0.96 mg/dL 0.68 0.69 Sodium 136 - 144 mmol/L 140 138 Potassium 3.7 - 5.1 mmol/L 3.9 3.9 Chloride 97 - 105 mmol/L 102 100 CO2 22 - 30 mmol/L 27 27 Anion Gap 9 - 18 mmol/L 11 11 eGFR >=60 mL/min/1.73m 92 91 Cholesterol, Total <200 mg/dL 137 121 Triglyceride <150 mg/dL 79 119 HDL Cholesterol >39 mg/dL 58 49 Non HDL Cholesterol <130 mg/dL 79 72 Fasting Time hrs 12 12 VLDL Cholesterol <30 mg/dL 16 24 TC:HDL Ratio <5.10 2.36 2.47 LDL Cholesterol <100 mg/dL 63 48 LDL:HDL Ratio <2.54 1.09 0.98 Creatinine, Ur Random (UCRR) 20.0 - 300.0 mg/dL 121.3 263.0 Albumin, Urine Random mg/L 12.7 13.2 Albumin/Creat Ratio <30 mg/g 10 5 Hemoglobin A1C 4.3 - 5.6 % 6.5 (H) 6.8 (H) 7.1 (H) Estimated Average Glucose mg/dL 140 148 157 TSH 0.270 - 4.200 mIU/L 1.140 0.848 0.839 Free T4 0.9 - 1.7 ng/dL 1.5 1.5 Free T3 2.3 - 4.1 pg/mL 2.6 2.4 Magnesium 1.7 - 2.3 mg/dL 1.8 Assessment and Plan Encounter Diagnosis ICD-10-CM 1. Type 2 diabetes mellitus without complication, without long-term current use of insulin (HCC) E11.9 metFORMIN ER (GLUCOPHAGE XR) 500 mg 24 hr tablet COMP METABOLIC PANEL HGB A1C 2. HTN (hypertension), benign I10 losartan-hydroCHLOROthiazide (HYZAAR) 100-25 mg per tablet COMP METABOLIC PANEL CBC 3. Acquired hypothyroidism E03.9 levothyroxine (SYNTHROID) 112 mcg tablet TSH BLD T3 FREE BLD T4 FREE/FREE THYROX 4. Gastroesophageal reflux disease, unspecified whether esophagitis present K21.9 omeprazole (PRILOSEC) 40 mg capsule on PPI routinely 5. Nausea R11.0 ondansetron orally disintegrating (ZOFRAN ODT) 4 mg disintegrating tablet 6. Pure hypercholesterolemia E78.00 rosuvastatin (CRESTOR) 10 mg tablet LIPID PANEL BASIC 7. Bladder irritability N32.89 oxybutynin XL (DITROPAN XL) 5 mg 24 hr tablet 8. Urge incontinence of urine N39.41 oxybutynin XL (DITROPAN XL) 5 mg 24 hr tablet 9. Reactive depression F32.9 buPROPion XL (WELLBUTRIN XL) 300 mg 24 hr tablet 10. Mild intermittent asthma without complication J45.20 montelukast (SINGULAIR) 10 mg tablet exercise induced; also allergies can contribute 11. Allergic rhinitis, unspecified seasonality, unspecified trigger J30.9 fluticasone (FLONASE) 50 mcg/actuation nasal spray Above issues addressed with patient. Patient involved in shared decision making for management of medical issues. History and medications reviewed. Epic updated as needed Refills and/or prescriptions taken care of and meds adjusted as indicated after reviewed history, exam and labs. Health Maintenance reviewed. Updated record and/or ordered tests as recorded. Encouraged on efforts at healthy diet and regular exercise and adequate sleep. Needs to keep working on diet and exercise with lifestyle changes for effective weight loss as well as prevention of DM, and control of BP and lipids. Continue present management.Further evaluation and treatment as indicated. Fifi Green MD documented in this encounter [facility] 03-14-2023 Miscellaneous Notes Pt in lab for bloodwork that was ordered in July. Orders had expected by date of 07/2023. Per JOCELYN Angeles to change to expected by today. Changed as directed above. Beti Peralta MA documented in this encounter [facility] 07-21-2022 Instructions Duglas Hall APRN.MARKETING PLANNER - 07/21/2022 12:35 PM EST Check to see if your insurance covers Tdap and Covid19 booster vaccine and what location to get the vaccine -usually best covered at your local pharmacy where you get prescriptions filled documented in this encounter [facility] 07-21-2022 History of Present illness Narrative SUBJECTIVE: DILATED RETINAL EXAM due on 10/01/2021 COVID-19 VACCINE(5 - Booster for Pfizer series) due on 12/19/2021 DIABETIC FOOT EXAM due on 01/18/2022 ADVANCE DIRECTIVE DISCUSSION Never done DTAP,TDAP,TD(2 - Td or Tdap) due on 07/15/2022 URINE ALBUMIN:CREATININE RATIO due on 07/28/2022 GILBERTO Graham is a 72 year old female. PMH significant for ACTIVE PROBLEM LIST Dysmetabolic Syndrome X Fibromyalgia Pure Hypercholesterolemia Acquired Hypothyroidism Reactive Depression Primary Hypertension History of Breast Cancer Esophageal Reflux Degenerative Joint Disease of Cervical Spine Type 2 Diabetes Mellitus Without Complication, Without Long-Term Current Use of Insulin (Hcc) Bladder Irritability Urge Incontinence of Urine Obesity, Class I, Bmi 30-34.9 DIABETES MELLITUS: Does not check BS.Without report of excessive thirst or increased frequency of urination, chest pain or dyspnea , numbness, tingling or pain in extremities, new or unusual visual symptoms, low sugar/hypoglycemic reactions, weight loss/gain, lightheadedness/dizziness, and bowel changes/loose stools. Patient's last HgA1C was Hemoglobin A1C (%) Date Value 06/15/2022 6.8 07/28/2021 6.5 01/13/2021 6.9 ) Podiatry: no, no skin problems, no numbness or tingling, defers foot exam today Ophthalmology: [facility], Rashel richey.Every other year typically. HTN: Without report of headache, chest pain, palpitations, dyspnea, peripheral edema, orthopnea, fatigue, and PND. . Last 14 Encounter BP Readings: Date: BP: 07/21/2022 129/83 01/18/2021 110/60 06/07/2020 128/80 05/04/2020 130/78 06/23/2019 100/80 02/28/2019 116/80 01/21/2019 114/82 08/05/2018 138/80 03/20/2018 134/80 03/05/2018 126/78 02/26/2018 132/90 12/03/2017 136/85 09/12/2017 144/92 05/10/2017 138/84 Hyperlipidemia. Ms. Graham reports doing well on current therapy Her most recent lipid panels are: Cholesterol, Total (mg/dL) Date Value 06/15/2022 137 01/13/2021 128 06/03/2020 126 HDL Cholesterol (mg/dL) Date Value 06/15/2022 58 01/13/2021 47 06/03/2020 52 LDL Cholesterol (mg/dL) Date Value 06/15/2022 63 01/13/2021 61 06/03/2020 56 Triglyceride (mg/dL) Date Value 06/15/2022 79 01/13/2021 102 06/03/2020 90 Hypothyroidism. She is doing well on her current dose of Synthroid. TSH Date Value 06/15/2022 0.848 mIU/L 06/07/2021 1.140 uU/mL 01/13/2021 3.450 uU/mL ) Bladder: well controlled GERD: controlled, occasional abdominal cramping helped with bentyl Depression: mood stable Review of Systems Constitutional: Negative. Respiratory: Negative. Cardiovascular: Negative. Endocrine: Negative. Objective BP 129/83 Pulse 72 Resp 16 Ht 157.5 cm (5' 2) Wt 85.7 kg (189 lb) BMI 34.57 kg/m Physical Exam Vitals and nursing note reviewed. Constitutional: Appearance: Normal appearance. HENT: Head: Normocephalic and atraumatic. Eyes: Conjunctiva/sclera: Conjunctivae normal. Neck: Thyroid: No thyromegaly. Vascular: Normal carotid pulses. No JVD. Cardiovascular: Rate and Rhythm: Normal rate and regular rhythm. Pulses: Carotid pulses are 2+ on the right side and 2+ on the left side. Radial pulses are 2+ on the right side and 2+ on the left side. Heart sounds: Normal heart sounds. Pulmonary: Effort: Pulmonary effort is normal. Breath sounds: Normal breath sounds. Abdominal: General: Bowel sounds are normal. Palpations: Abdomen is soft. Musculoskeletal: Right lower leg: No edema. Left lower leg: No edema. Skin: General: Skin is warm and dry. Neurological: General: No focal deficit present. Mental Status: She is alert and oriented to person, place, and time. ALLERGIES Allergen Reactions Aspirin Tinnitus, hearing loss AD when on mary jo doses. Is able to take ASA now without any reaction. Ciprofloxacin Hives reports hives now after completing cipro 06/23/2019 Metformin GI Upset made her ill; stomach upset with pain and diarrhea- has taken since with no issue Penicillins hives Sulfa (Sulfonamide * hives Zocor [Simvastatin] myalgias Medications celecoxib (CELEBREX) 200 mg capsule TAKE 1 TABLET BY MOUTH ONCE A DAY WITH FOOD scopolamine (TRANSDERM-SCOP) patch 1.5 mg/72 hr (delivers 1 mg over 3 days) Apply 1 Patch as directed every 72 hours. Apply patch to skin behind ear 4hrs prior to travel. sucralfate (CARAFATE) 1 gram tablet Take 1 tablet by mouth four times daily as needed. as directed montelukast (SINGULAIR) 10 mg tablet Take 1 tablet by mouth daily at bedtime. ivermectin (SOOLANTRA) 1 % crea Apply 1 application to affected area once daily. multivitamin tablet Take 1 tablet by mouth once daily. Cholecalciferol, Vitamin D3, (VITAMIN D) 1,000 unit cap Take 1 capsule by mouth once daily. cholestyramine (QUESTRAN) 4 gram packet Take 1 Packet by mouth three times daily with meals. cetirizine (ZYRTEC) 10 mg tablet Take 10 mg by mouth once daily. acetaminophen 500 mg tablet Take 500 mg by mouth every 6 hours as needed. levothyroxine (SYNTHROID) 112 mcg tablet Take 1 tablet by mouth once daily. Take on empty stomach. For thyroid losartan-hydroCHLOROthiazide (HYZAAR) 100-25 mg per tablet Take 1 tablet by mouth once daily. metFORMIN ER (GLUCOPHAGE XR) 500 mg 24 hr tablet Taking total of 4 pills per day but in divided doses omeprazole (PRILOSEC) 40 mg capsule Take 1 capsule by mouth once daily. ondansetron orally disintegrating (ZOFRAN ODT) 4 mg disintegrating tablet Take 1 tablet by mouth every 8 hours as needed for nausea/vomiting. rosuvastatin (CRESTOR) 10 mg tablet Take 1 tablet by mouth once daily. oxybutynin XL (DITROPAN XL) 5 mg 24 hr tablet Take 1 tablet by mouth once daily. (N32.89) Bladder irritability (N39.41) Urge incontinence of urine phenazopyridine (PYRIDIUM) 200 mg tablet Take 1 tablet by mouth three times daily as needed. fluticasone (FLONASE) 50 mcg/actuation nasal spray Use 2 Sprays in each nostril once daily. As directed dicyclomine (BENTYL) 10 mg capsule Take 1 capsule by mouth twice daily as needed. buPROPion XL (WELLBUTRIN XL) 300 mg 24 hr tablet Take 1 tablet by mouth once daily. clotrimazole-betamethasone (LOTRISONE) cream Apply to affected area twice daily for 14 days. May repeat as needed. For rash PAST MEDICAL HISTORY Diagnosis Date Abdominal pain, epigastric Abdominal pain, left lower quadrant Acute gastritis without mention of hemorrhage Allergic rhinitis, cause unspecified Allergic rhinitis Diaphragmatic hernia without mention of obstruction or gangrene DM type 2 (diabetes mellitus, type 2) (HCC) Esophageal reflux 07/24/2005 Esophagitis, unspecified Intestinal disaccharidase deficiencies and disaccharide malabsorption Malignant neoplasm of breast (female), unspecified site 07/02/1985 Breast cancer Morbid obesity (HCC) Myalgia and myositis, unspecified Obesity (BMI 30-39.9) Pure hypercholesterolemia Unspecified constipation Unspecified essential hypertension Unspecified hypothyroidism Unspecified sinusitis (chronic) Chronic sinusitis Social History Tobacco Use Smoking status: Never Smokeless tobacco: Never Vaping Use Vaping Use: Never used Substance Use Topics Alcohol use: No Alcohol/week: 1.7 standard drinks Comment: less than one drink per week Drug use: No Component Latest Ref Rng & Units 01/13/2021 06/07/2021 07/28/2021 06/15/2022 WBC 3.70 - 11.00 k/uL 8.91 7.48 RBC 3.90 - 5.20 m/uL 4.75 4.74 Hemoglobin 11.5 - 15.5 g/dL 13.7 13.9 Hematocrit 36.0 - 46.0 % 42.1 41.3 MCV 80.0 - 100.0 fL 88.6 87.1 MCH 26.0 - 34.0 pg 28.8 29.3 MCHC 30.5 - 36.0 g/dL 32.5 33.7 RDW-CV 11.5 - 15.0 % 11.9 12.1 Platelet Count 150 - 400 k/uL 271 251 MPV 9.0 - 12.7 fL 10.8 9.7 Neut% % 64.7 Abs Neut (ANC) 1.45 - 7.50 k/uL 4.83 Lymph% % 26.7 Abs Lymph 1.00 - 4.00 k/uL 2.00 Nelson% % 5.3 Abs Nelson <0.87 k/uL 0.40 Eosin% % 2.1 Abs Eosin <0.46 k/uL 0.16 Baso% % 0.9 Abs Baso <0.11 k/uL 0.07 Immature Gran % % 0.3 IMMATURE GRANS (ABS) <0.10 k/uL <0.03 NRBC /100 WBC 0.0 Absolute nRBC <0.01 k/uL <0.01 <0.01 DTYPE Auto Protein, Total 6.3 - 8.0 g/dL 6.9 6.7 Albumin 3.9 - 4.9 g/dL 4.3 4.4 Calcium 8.5 - 10.2 mg/dL 9.7 9.6 Bilirubin, Total 0.2 - 1.3 mg/dL 0.5 0.5 Alkaline Phosphatase 34 - 123 U/L 85 70 AST 13 - 35 U/L 18 19 Glucose 74 - 99 mg/dL 165 (H) 147 (H) BUN 7 - 21 mg/dL 13 20 Creatinine 0.58 - 0.96 mg/dL 0.74 0.68 Sodium 136 - 144 mmol/L 142 140 Potassium 3.7 - 5.1 mmol/L 3.8 3.9 Chloride 97 - 105 mmol/L 100 102 CO2 22 - 30 mmol/L 30 27 Anion Gap 9 - 18 mmol/L 12 11 ALT 7 - 38 U/L 20 17 eGFR- >60 eGFR-All Other Races . >60 eGFR >=60 mL/min/1.73m 92 Cholesterol, Total <200 mg/dL 128 137 Triglyceride <150 mg/dL 102 79 HDL Cholesterol >39 mg/dL 47 58 LDL Cholesterol <100 mg/dL 61 63 Non HDL Cholesterol <130 mg/dL 81 79 Fasting Time hrs 12 12 VLDL Cholesterol <30 mg/dL 20 16 TC:HDL Ratio <5.10 2.72 2.36 LDL:HDL Ratio <2.54 1.30 1.09 Creatinine, Ur Random (UCRR) 20 - 300 mg/dL 121.3 Albumin, Urine Random mg/L 12.7 Albumin/Creat Ratio <30 mg/g 10 Hemoglobin A1C 4.3 - 5.6 % 6.9 (H) 6.5 (H) 6.8 (H) Estimated Average Glucose mg/dL 151 140 148 TSH 0.270 - 4.200 mIU/L 3.450 1.140 0.848 Free T4 0.9 - 1.7 ng/dL 1.2 1.5 1.5 Free T3 2.3 - 4.1 pg/mL 2.1 (L) 2.6 2.4 Magnesium 1.7 - 2.3 mg/dL 1.8 ASSESSMENT/PLAN: 1. Type 2 diabetes mellitus without complication, without long-term current use of insulin (HCC) - ICD9: 250.00, ICD10: E11.9 (primary diagnosis) Controlled. - Continue current medications - ALBUMIN/CREAT RATIO RND UR - COMP METABOLIC PANEL - CBC + DIFF - HGB A1C - LIPID PANEL BASIC - METFORMIN ER 500 MG TABLET,EXTENDED RELEASE 24 HR 2. Screening for diabetic retinopathy - ICD9: V80.2, ICD10: Z13.5 [facility] eye Drs. Goss, now retired; will see partneers 3. Encounter for immunization - ICD9: V03.89, ICD10: Z23 - [employer] COVID-19 BIVALENT BOOSTER VACCINE, AGE 12+ YR - TDAP VACCINE AGE 7+ IM 4. Primary hypertension - ICD9: 401.9, ICD10: I10 controlled - Continue current medication(s) - Encouraged dietary sodium restriction/DASH diet - Recommended regular aerobic exercise. - TSH BLD 5. Acquired hypothyroidism - ICD9: 244.9, ICD10: E03.9 Stable, currently controlled, continue to monitor. - LEVOTHYROXINE 112 MCG TABLET 6. Bladder irritability - ICD9: 596.89, ICD10: N32.89 Stable, currently controlled, continue to monitor. - OXYBUTYNIN CHLORIDE ER 5 MG TABLET,EXTENDED RELEASE 24 HR 7. Urge incontinence of urine - ICD9: 788.31, ICD10: N39.41 Stable, currently controlled, continue to monitor. - OXYBUTYNIN CHLORIDE ER 5 MG TABLET,EXTENDED RELEASE 24 HR 8. Pure hypercholesterolemia - ICD9: 272.0, ICD10: E78.00 Recommend a plant based diet such as Mediterranean diet with plenty of vegetables, fruits,whole grains, fish, chicken, turkey or plant proteins and routine exercise such as walking Continue statin unchanged - ROSUVASTATIN 10 MG TABLET 9. Gastroesophageal reflux disease, unspecified whether esophagitis present - ICD9: 530.81, ICD10: K21.9 Stable, currently controlled, continue to monitor. - OMEPRAZOLE 40 MG CAPSULE,DELAYED RELEASE 10. HTN (hypertension), benign - ICD9: 401.1, ICD10: I10 controlled - Continue current medication(s) - Encouraged dietary sodium restriction/DASH diet - Recommended regular aerobic exercise. - LOSARTAN 100 MG-HYDROCHLOROTHIAZIDE 25 MG TABLET 11. Gastroesophageal reflux disease, unspecified whether esophagitis present - ICD9: 530.81, ICD10: K21.9 Stable, currently controlled, continue to monitor. - OMEPRAZOLE 40 MG CAPSULE,DELAYED RELEASE 12. Nausea - ICD9: 787.02, ICD10: R11.0 - ONDANSETRON 4 MG DISINTEGRATING TABLET 13. Reactive depression - ICD9: 300.4, ICD10: F32.9 - BUPROPION XL 300 MG 24 HR TAB Duglas Hall APRN.CNS Medical Decision Making: Problems: Moderate: 2+ stable chronic illnesses Data: Unique test(s) ordered: 3+ Risk: Moderate: Drug management Medical Decision Making Level: 4 - Moderate documented in this encounter [facility] 05-01-2022 Miscellaneous Notes Contacted patient and scheduled mammogram. Chantell Bravo Pss please schedule Pt calling and states requesting mammogram orders. Once orders are in place, please call pt and help her schedule. 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 Lab orders have . Please review and approve. Brandi EDUARDO Patient has been identified by name and date of : Yes Patient phones for refill(s): Requested Prescriptions Pending Prescriptions Disp Refills oxybutynin XL (DITROPAN XL) 5 mg 24 hr tablet 30 tablet 5 Sig: Take 1 tablet by mouth once daily. (N32.89) Bladder irritability (N39.41) Urge incontinence of urine Date of last office visit in primary care: 08/05/21 Last 2 Encounter Wt Readings: Date: Wt: 01/18/2021 83.5 kg (184 lb) 06/07/2020 85.7 kg (189 lb) Previous labs/tests for medication: Not applicable Thank you. Brandi Mcguire LPN documented in this encounter [facility] 03-07-2022 Miscellaneous Notes The following approved medication requests have been transmitted electronically. Requested Prescriptions Signed Prescriptions Disp Refills dicyclomine (BENTYL) 10 mg capsule 60 capsule 11 Sig: Take 1 capsule by mouth twice daily as needed. Authorizing Provider: FIFI GREEN celecoxib (CELEBREX) 200 mg capsule 30 capsule 11 Sig: TAKE 1 TABLET BY MOUTH ONCE A DAY WITH FOOD Authorizing Provider: FIFI GREEN scopolamine (TRANSDERM-SCOP) patch 1.5 mg/72 hr (delivers 1 mg over 3 days) 4 Patch 1 Sig: Apply 1 Patch as directed every 72 hours. Apply patch to skin behind ear 4hrs prior to travel. Authorizing Provider: FIFI GREEN MD I assume travel time for which needs patches will be 12 days or less, so gave 4 patches. There is a refill in case needs a refill. Patient calling with 2 requests: Refills for her Bentyl and Celebrex, as pended. Address [facility] message from 02/17/22: (COPIED:) We will be leaving for [place] on , 3 hours to [facility] and then 8 hours to [place], we then will aboard a cruise ship. I will need patches for the ship and also something to take the edge off because of the long flight, thank you! Please advise patient. Thank you. Patient has been identified by name and date of : Yes Patient phones for refill(s): Requested Prescriptions Pending Prescriptions Disp Refills dicyclomine (BENTYL) 10 mg capsule 60 capsule 11 Sig: Take 1 capsule by mouth twice daily as needed. celecoxib (CELEBREX) 200 mg capsule 30 capsule 11 Sig: TAKE 1 TABLET BY MOUTH ONCE A DAY WITH FOOD Date of last office visit in primary care: 08/05/21 ([facility]), NOV: not scheduled yet Last 2 Encounter Wt Readings: Date: Wt: 01/18/2021 83.5 kg (184 lb) 06/07/2020 85.7 kg (189 lb) Please advise. Thank you. Elizabeth Cho RN documented in this encounter [facility] 08-13-2015 History of Past i llness Narrative Problem Noted Date Resolved Date Nausea 08/13/2015 08/13/2015 Gastroesophageal reflux disease 08/13/2015 08/13/2015 H/O total mastectomy of left breast 03/01/2015 10/19/2015 Abdominal pain, unspecified site 08/23/2011 06/13/2014 Abdominal pain, epigastric 09/02/201006/13 Lump or mass in breast 09/02/2009 6 Acute gastritis without mention of hemorrhage 10/19/2015 MASS IN NECK 11/01/2007 10/19/2015 Overview: s/p lipoma resection from right cervical side Periodic limb movement disorder 05/16/2006 10/19/2015 Abnormal mammogram, unspecified 04/18/2006 10/19/2015 Irritable bowel syndrome 01/24/2006 016 MORBID OBESITY 08/03/2015 Allergic rhinitis, cause unspecified 10/19/2015 Overview: Allergic rhinitis documented as of this encounter (statuses as of 10/11/2021) [facility] History of Past illness Narrative* Problem Noted Date Resolved Date Nausea 08/13/2015 08/13/2015 Gastroesophageal reflux disease 08/13/2015 08/13/2015 H/O total mastectomy of left breast 03/01/2015 10/19/2015 Abdominal pain, unspecified site 08/23/2011 06/13/2014 Abdominal pain, epigastric 09/02/201006/13 Lump or mass in breast 09/02/2009 6 Acute gastritis without mention of hemorrhage 10/19/2015 MASS IN NECK 11/01/2007 10/19/2015 Overview: s/p lipoma resection from right cervical side Periodic limb movement disorder 05/16/2006 10/19/2015 Abnormal mammogram, unspecified 04/18/2006 10/19/2015 Irritable bowel syndrome 01/24/2006 016 MORBID OBESITY 08/03/2015 Allergic rhinitis, cause unspecified 10/19/2015 Overview: Allergic rhinitis documented as of this encounter (statuses as of 03/07/2022) [facility] History of Past illness Narrative* Problem Noted Date Resolved Date Nausea 08/13/2015 08/13/2015 Gastroesophageal reflux disease 08/13/2015 08/13/2015 H/O total mastectomy of left breast 03/01/2015 10/19/2015 Abdominal pain, unspecified site 08/23/2011 06/13/2014 Abdominal pain, epigastric 09/02/201006/13 Lump or mass in breast 09/02/2009 6 Acute gastritis without mention of hemorrhage 10/19/2015 MASS IN NECK 11/01/2007 10/19/2015 Overview: s/p lipoma resection from right cervical side Periodic limb movement disorder 05/16/2006 10/19/2015 Abnormal mammogram, unspecified 04/18/2006 10/19/2015 Irritable bowel syndrome 01/24/2006 016 MORBID OBESITY 08/03/2015 Allergic rhinitis, cause unspecified 10/19/2015 Overview: Allergic rhinitis documented as of this encounter (statuses as of 04/25/2022) [facility] History of Past illness Narrative* Problem Noted Date Resolved Date Nausea 08/13/2015 08/13/2015 Gastroesophageal reflux disease 08/13/2015 08/13/2015 H/O total mastectomy of left breast 03/01/2015 10/19/2015 Abdominal pain, unspecified site 08/23/2011 06/13/2014 Abdominal pain, epigastric 09/02/201006/13 Lump or mass in breast 09/02/2009 6 Acute gastritis without mention of hemorrhage 10/19/2015 MASS IN NECK 11/01/2007 10/19/2015 Overview: s/p lipoma resection from right cervical side Periodic limb movement disorder 05/16/2006 10/19/2015 Abnormal mammogram, unspecified 04/18/2006 10/19/2015 Irritable bowel syndrome 01/24/2006 016 MORBID OBESITY 08/03/2015 Allergic rhinitis, cause unspecified 10/19/2015 Overview: Allergic rhinitis documented as of this encounter (statuses as of 04/27/2022) [facility] History of Past illness Narrative* Problem Noted Date Resolved Date Nausea 08/13/2015 08/13/2015 Gastroesophageal reflux disease 08/13/2015 08/13/2015 H/O total mastectomy of left breast 03/01/2015 10/19/2015 Abdominal pain, unspecified site 08/23/2011 06/13/2014 Abdominal pain, epigastric 09/02/201006/13 Lump or mass in breast 09/02/2009 6 Acute gastritis without mention of hemorrhage 10/19/2015 MASS IN NECK 11/01/2007 10/19/2015 Overview: s/p lipoma resection from right cervical side Periodic limb movement disorder 05/16/2006 10/19/2015 Abnormal mammogram, unspecified 04/18/2006 10/19/2015 Irritable bowel syndrome 01/24/2006 016 MORBID OBESITY 08/03/2015 Allergic rhinitis, cause unspecified 10/19/2015 Overview: Allergic rhinitis documented as of this encounter (statuses as of 05/01/2022) [facility] History of Past illness Narrative* Problem Noted Date Resolved Date Nausea 08/13/2015 08/13/2015 Gastroesophageal reflux disease 08/13/2015 08/13/2015 H/O total mastectomy of left breast 03/01/2015 10/19/2015 Abdominal pain, unspecified site 08/23/2011 06/13/2014 Abdominal pain, epigastric 09/02/201006/13 Lump or mass in breast 09/02/2009 6 Acute gastritis without mention of hemorrhage 10/19/2015 MASS IN NECK 11/01/2007 10/19/2015 Overview: s/p lipoma resection from right cervical side Periodic limb movement disorder 05/16/2006 10/19/2015 Abnormal mammogram, unspecified 04/18/2006 10/19/2015 Irritable bowel syndrome 01/24/2006 016 MORBID OBESITY 08/03/2015 Allergic rhinitis, cause unspecified 10/19/2015 Overview: Allergic rhinitis documented as of this encounter (statuses as of 07/21/2022) [facility] History of Past illness Narrative* Problem Noted Date Diagnosed Date Resolved Date Nausea 08/13/2015 08/13/2015 Gastroesophageal reflux disease 08/13/2015 08/13/2015 H/O total mastectomy of left breast 03/01/2015 10/19/2015 Abdominal pain, unspecified site 08/23/2011 06/13/2014 Abdominal pain, epigastric 09/02/2010 1 08/14/2013 Lump or mass in breast 09/02/200910/18 Acute gastritis without mention of hemorrhage 08/19/19 09 10/19/2015 MASS IN NECK 11/01/2007 10/19/2015 Overview: s/p lipoma resection from right cervical side Periodic limb movement disorder 05/16/2006 10/19/2015 Abnormal mammogram, unspecified 04/18/2006 10/19/2015 Irritable bowel syndrome 01/24/2006 MORBID OBESITY 08/03/2015 Allergic rhinitis, cause unspecified 10/19/2015 Overview: Allergic rhinitis documented as of this encounter (statuses as of 03/14/2023) [facility] History of Past illness Narrative* Problem Noted Date Diagnosed Date Resolved Date Nausea 08/13/2015 08/13/2015 Gastroesophageal reflux disease 08/13/2015 08/13/2015 H/O total mastectomy of left breast 03/01/2015 10/19/2015 Abdominal pain, unspecified site 08/23/2011 06/13/2014 Abdominal pain, epigastric 09/02/2010 1 08/14/2013 Lump or mass in breast 09/02/200910/18 Acute gastritis without mention of hemorrhage 08/19/19 09 10/19/2015 MASS IN NECK 11/01/2007 10/19/2015 Overview: s/p lipoma resection from right cervical side Periodic limb movement disorder 05/16/2006 10/19/2015 Abnormal mammogram, unspecified 04/18/2006 10/19/2015 Irritable bowel syndrome 01/24/2006 MORBID OBESITY 08/03/2015 Allergic rhinitis, cause unspecified 10/19/2015 Overview: Allergic rhinitis documented as of this encounter (statuses as of 03/27/2023) [facility] History of Past illness Narrative* Problem Noted Date Diagnosed Date Resolved Date Nausea 08/13/2015 08/13/2015 Gastroesophageal reflux disease 08/13/2015 08/13/2015 H/O total mastectomy of left breast 03/01/2015 10/19/2015 Abdominal pain, unspecified site 08/23/2011 06/13/2014 Abdominal pain, epigastric 09/02/2010 1 08/14/2013 Lump or mass in breast 09/02/200910/18 Acute gastritis without mention of hemorrhage 08/19/19 09 10/19/2015 MASS IN NECK 11/01/2007 10/19/2015 Overview: s/p lipoma resection from right cervical side Periodic limb movement disorder 05/16/2006 10/19/2015 Abnormal mammogram, unspecified 04/18/2006 10/19/2015 Irritable bowel syndrome 01/24/2006 MORBID OBESITY 08/03/2015 Allergic rhinitis, cause unspecified 10/19/2015 Overview: Allergic rhinitis documented as of this encounter (statuses as of 04/21/2023) [facility] History of Past illness Narrative* Problem Noted Date Diagnosed Date Resolved Date Nausea 08/13/2015 08/13/2015 Gastroesophageal reflux disease 08/13/2015 08/13/2015 H/O total mastectomy of left breast 03/01/2015 10/19/2015 Abdominal pain, unspecified site 08/23/2011 06/13/2014 Abdominal pain, epigastric 09/02/2010 1 08/14/2013 Lump or mass in breast 09/02/200910/18 Acute gastritis without mention of hemorrhage 08/19/19 09 10/19/2015 MASS IN NECK 11/01/2007 10/19/2015 Overview: s/p lipoma resection from right cervical side Periodic limb movement disorder 05/16/2006 10/19/2015 Abnormal mammogram, unspecified 04/18/2006 10/19/2015 Irritable bowel syndrome 01/24/2006 MORBID OBESITY 08/03/2015 Allergic rhinitis, cause unspecified 10/19/2015 Overview: Allergic rhinitis documented as of this encounter (statuses as of 05/28/2023) [facility] History of Past illness Narrative* Problem Noted Date Diagnosed Date Resolved Date Nausea 08/13/2015 08/13/2015 Gastroesophageal reflux disease 08/13/2015 08/13/2015 H/O total mastectomy of left breast 03/01/2015 10/19/2015 Abdominal pain, unspecified site 08/23/2011 06/13/2014 Abdominal pain, epigastric 09/02/2010 1 08/14/2013 Lump or mass in breast 09/02/200910/18 Acute gastritis without mention of hemorrhage 08/19/19 09 10/19/2015 MASS IN NECK 11/01/2007 10/19/2015 Overview: s/p lipoma resection from right cervical side Periodic limb movement disorder 05/16/2006 10/19/2015 Abnormal mammogram, unspecified 04/18/2006 10/19/2015 Irritable bowel syndrome 01/24/2006 MORBID OBESITY 08/03/2015 Allergic rhinitis, cause unspecified 10/19/2015 Overview: Allergic rhinitis documented as of this encounter (statuses as of 08/06/2023) [facility] History of Past illness Narrative* Problem Noted Date Diagnosed Date Resolved Date Nausea 08/13/2015 08/13/2015 Gastroesophageal reflux disease 08/13/2015 08/13/2015 H/O total mastectomy of left breast 03/01/2015 10/19/2015 Abdominal pain, unspecified site 08/23/2011 06/13/2014 Abdominal pain, epigastric 09/02/2010 1 08/14/2013 Lump or mass in breast 09/02/200910/18 Acute gastritis without mention of hemorrhage 08/19/19 09 10/19/2015 MASS IN NECK 11/01/2007 10/19/2015 Overview: s/p lipoma resection from right cervical side Periodic limb movement disorder 05/16/2006 10/19/2015 Abnormal mammogram, unspecified 04/18/2006 10/19/2015 Irritable bowel syndrome 01/24/2006 MORBID OBESITY 08/03/2015 Allergic rhinitis, cause unspecified 10/19/2015 Overview: Allergic rhinitis documented as of this encounter (statuses as of 08/20/2023) [facility] History of Past illness Narrative* Problem Noted Date Diagnosed Date Resolved Date Nausea 08/13/2015 08/13/2015 Gastroesophageal reflux disease 08/13/2015 08/13/2015 H/O total mastectomy of left breast 03/01/2015 10/19/2015 Abdominal pain, unspecified site 08/23/2011 06/13/2014 Abdominal pain, epigastric 09/02/2010 1 08/14/2013 Lump or mass in breast 09/02/200910/18 Acute gastritis without mention of hemorrhage 08/19/19 09 10/19/2015 MASS IN NECK 11/01/2007 10/19/2015 Overview: s/p lipoma resection from right cervical side Periodic limb movement disorder 05/16/2006 10/19/2015 Abnormal mammogram, unspecified 04/18/2006 10/19/2015 Irritable bowel syndrome 01/24/2006 MORBID OBESITY 08/03/2015 Allergic rhinitis, cause unspecified 10/19/2015 Overview: Allergic rhinitis documented as of this encounter (statuses as of 09/18/2023) [facility] Diagnosis Fibromyalgia Mylagia and myositis, unspecified Osteoarthritis of cervical spine, unspecified spinal osteoarthritis complication status documented in this encounter [facility] note* Diagnosis Acquired hypothyroidism- Primary Unspecified hypothyroidism Bladder irritability Other specified disorders of bladder Urge incontinence of urine Urge incontinence Encounter for long-term (current) use of medications Encounter for long-term (current) use of other medications Type 2 diabetes mellitus without (mention of) complications (HCC) Type II or unspecified type diabetes mellitus without mention of complication, not stated as uncontrolled Hypertension, benign Essential hypertension, benign [facility] Diagnosis Encounter for screening mammogram for breast cancer- Primary [facility]* Diagnosis Type 2 diabetes mellitus without complication, without long-term current use of insulin (HCC)- Primary Screening for diabetic retinopathy Screening for other eye conditions Encounter for immunization Need for other specified prophylactic vaccination against single bacterial disease Primary hypertension Unspecified essential hypertension Acquired hypothyroidism Unspecified hypothyroidism Bladder irritability Other specified disorders of bladder Urge incontinence of urine Urge incontinence Pure hypercholesterolemia Gastroesophageal reflux disease, unspecified whether esophagitis present HTN (hypertension), benign Essential hypertension, benign Nausea Nausea alone Reactive depression Dysthymic disorder [facility]* Diagnosis Type 2 diabetes mellitus without complication, without long-term current use of insulin ([facility])- Primary HTN (hypertension), benign Essential hypertension, benign Acquired hypothyroidism Unspecified hypothyroidism Gastroesophageal reflux disease, unspecified whether esophagitis present Nausea Nausea alone Pure hypercholesterolemia Bladder irritability Other specified disorders of bladder Urge incontinence of urine Urge incontinence Reactive depression Dysthymic disorder Mild intermittent asthma without complication Unspecified asthma Allergic rhinitis, unspecified seasonality, unspecified trigger documented in this encounter [facility] note* Diagnosis Encounter for screening mammogram for breast cancer- Primary [facility]* Diagnosis Alternating constipation and diarrhea- Primary Other symptoms involving digestive system Change in bowel habits Other symptoms involving digestive system documented in this encounter [facility] note* Diagnosis Encounter for gynecological examination (general) (routine) without abnormal findings- Primary documented in this encounter [facility] noteNo assessment information availableWKn[facility] Work Phone: Evaluation note* Diagnosis Type 2 diabetes mellitus without complication, without long-term current use of insulin ([facility])- Primary Acquired hypothyroidism Unspecified hypothyroidism Alternating constipation and diarrhea Other symptoms involving digestive system Pure hypercholesterolemia Primary hypertension Unspecified essential hypertension documented in this encounter [facility] note* Diagnosis DERRICK (stress urinary incontinence, female)- Primary Female stress incontinence Mixed incontinence Mixed incontinence urge and stress (male)(female) documented in this encounter [facility] note* Diagnosis Acute non-recurrent pansinusitis- Primary Acute asthmatic bronchitis Unspecified asthma, with exacerbation Sinobronchitis Unspecified sinusitis (chronic) Vertigo Dizziness and giddiness Abnormal CXR Other nonspecific abnormal finding of lung field Sinobronchitis Unspecified sinusitis (chronic) Abnormal CXR Other nonspecific abnormal finding of lung field documented in this encounter [facility] note* Diagnosis Subacute pansinusitis- Primary Thrush Candidiasis of mouth [facility]* Diagnosis Sinobronchitis Unspecified sinusitis (chronic) Abnormal CXR Other nonspecific abnormal finding of lung field [facility]* Diagnosis Type 2 diabetes mellitus with hyperglycemia, without long-term current use of insulin ([facility])- Primary Reactive depression Dysthymic disorder Acquired hypothyroidism Unspecified hypothyroidism Primary hypertension Unspecified essential hypertension Nausea Nausea alone Bladder irritability Other specified disorders of bladder Fibromyalgia Mylagia and myositis, unspecified Encounter for immunization Need for other specified prophylactic vaccination against single bacterial disease [facility] Diagnosis History of paranasal sinusotomy- Primary Personal history of surgery to other organs History of ethmoidectomy Other postprocedural status Diplopia [facility] Diagnosis Pure hypercholesterolemia documented [facility]* Diagnosis Encounter for screening mammogram for breast cancer- Primary [facility] Diagnosis Encounter for screening mammogram for breast cancer documented [facility] this encounter [facility]* Diagnosis Type 2 diabetes mellitus without complication, without long-term current use of insulin ([facility]) Gastroesophageal reflux disease, unspecified whether esophagitis present [facility] Diagnosis Nasal crusting- Primary Other diseases of nasal cavity and sinuses History of paranasal sinusotomy Personal history of surgery to other organs History of ethmoidectomy Other postprocedural status Diplopia [facility]* Diagnosis Type 2 diabetes mellitus with hyperglycemia, without long-term current use of insulin ([facility])- Primary Fibromyalgia Mylagia and myositis, unspecified Urge incontinence of urine Urge incontinence Infection of orbit Diplopia Primary hypertension Unspecified essential hypertension Acquired hypothyroidism Unspecified hypothyroidism [facility] Diagnosis Other chronic sinusitis [facility]* Diagnosis Other chronic sinusitis- Primary Diplopia Other chronic sinusitis [facility] Diagnosis Medicare annual wellness visit, subsequent- Primary Routine general medical examination at a [facility] Type 2 diabetes mellitus with hyperglycemia, without long-term current use of insulin ([facility]) Urge incontinence of urine Urge incontinence Alternating constipation and diarrhea Other symptoms involving digestive system Diplopia Encounter for screening examination for other mental health and behavioral disorders [facility] Diagnosis Other chronic sinusitis- Primary Diplopia [facility]* Diagnosis Fibromyalgia Mylagia and myositis, unspecified Osteoarthritis of cervical spine, unspecified spinal osteoarthritis complication status [facility] Diagnosis Other chronic sinusitis- Primary Diplopia [facility] Diagnosis Acute traumatic injury of cervical spine (HCC)- Primary Acute traumatic injury of cervical spine (HCC) Closed fracture of nasal bone, initial encounter Closed nondisplaced fracture of second cervical vertebra, unspecified fracture morphology, initial encounter (HCC) Closed nondisplaced fracture of first cervical vertebra, unspecified fracture morphology, initial encounter ([facility]) Laceration of nose, initial encounter Acute pain due to trauma Closed nondisplaced fracture of first cervical vertebra (HCC) C2 cervical fracture (HCC) Closed fracture of nasal septum Nasal laceration Acute pain due to trauma [facility] Diagnosis Acute traumatic injury of cervical spine (HCC)- Primary Acute pain due to trauma [facility] Diagnosis Closed fracture of nasal bone, initial encounter- Primary documented in this encounter [facility] for referral (narrative)* Diagnostic Procedure Only (Routine) - Authorized Specialty Diagnoses / Procedures Referred By Contac t Referred To Contact [facility] Diagnoses Encounter for screening mammogram for breast cancer Procedures AKANKSHA SCREENING SCREENING MAMMOGRAPHY BI 2-VIEW BREAST INC Duglas Ferrell APRN.[employer] [address] [id number] [facility] [address] [place] [address] Referral ID Status Reason Start Date Expiration Date Visits Requested Visits Authorized [id number] Authorized Auto-Generat ed Referral 2 05/31/2023 1 1 [facility] for referral (narrative)* Diagnostic Procedure Only (Routine) - Pending Review Specialty Diagnoses / Procedures Referred By Contac t Referred To Contact [facility] Diagnoses Encounter for screening mammogram for breast cancer Procedures AKANKSHA SCREENING SCREENING MAMMOGRAPHY BI 2-VIEW BREAST INC CAD Augusto Bland APRN.TRAUMA COORDINATOR [address] [place] [address] [facility] [address] [place] [address] Referral ID Status Reason Start Date Expiration Date Visits Requested Visits Authorized [id number] Pending Review Auto-Generat ed Referral 3 06/20/2024 1 1 [facility] for referral (narrative)* Diagnostic Procedure Only (Routine) - Authorized Specialty Diagnoses / Procedures Referred By Ever barrera Referred To Contact [facility] Diagnoses Encounter for screening mammogram for breast cancer Procedures AKANKSHA SCREENING SCREENING MAMMOGRAPHY BI 2-VIEW BREAST INC CAD Fifi Green MD [address] [place] [address] [facility] [address] [facility] [place] [address] Referral ID Status Reason Start Date Expiration Date Visits Requested Visits Authorized [id number] Authorized Auto-Generat ed Referral 07/16/2025 1 1 [facility] for referral (narrative)* Medication Prior Authorization - Closed Specialty Diagnoses / Procedures Referred By Ever barrera Referred To Contact Fifi Green MD [address] [place] [address] Phone: tel: fax: Referral ID Status Reason Start Date Expiration Date Visits Re quested Visits Authorized [id number] Closed 1 1 * Medication Prior Authorization - Closed Specialty Diagnoses / Procedures Referred By Ever barrera Referred To Contact Fifi Green MD [address] [place] [address] Phone: tel: fax: Referral ID Status Reason Start Date Expiration Date Visits Re quested Visits Authorized [id number] Closed 1 1 [facility] for visit Narrative* Diagnostic Procedure Only (Routine) - Closed Specialty Diagnoses / Procedures Referred By Ever barrera Referred To Contact [facility] Diagnoses Encounter for screening mammogram for breast cancer Procedures AKANKSHA SCREENING SCREENING MAMMOGRAPHY BI 2-VIEW BREAST INC CAD Fifi Green MD [address] [place] [address] [facility] [address] [place] [address] Referral ID Status Reason Start Date Expiration Date V isits Requested Visits Authorized [id number] Closed Auto-Generate d Referral 06/18/2024 07/16/2025 1 1 [facility] for visit Narrative* Auth/Cert (Routine) Specialty Diagnoses / Procedures Referred By Contac t Referred To Contact Diagnoses Acute traumatic injury of cervical spine (HCC) Cervical Spine Fracture Procedures . Skinny Carey MD [address] [place] [address] Phone: tel: fax: [facility] Surgical Trauma Neuro Intensive Care Unit STN ICU T[address] [place] [address] Phone: tel: Referral ID Status Reason Start Date Expiration Date Visits Re quested Visits Authorized [id number] 1 1 [facility] Reason for Referral Specialty Diagnoses / Procedures Referred By Contac t Referred To Contact Gastroenterology Diagnoses Alternating constipation and diarrhea Change in bowel habits Procedures CONSULT TO GASTROENTEROLOGY OFFICE/OUTPATIENT [facility] MDM 60 MINUTES Duglas Hall, ROXANN.MARKETING PLANNER [address] [place] [address] Referral ID Status Reason Start Date Expiration Date Visits Requested Visits Authorized [id number] Authorized PCP Requested Referral 08/06/2023 08/05/2024 1 1 Specialty Diagnoses / Procedures Referred By Contac t Referred To Contact [facility] Diagnoses DERRICK (stress urinary incontinence, female) Procedures CONSULT TO PHYSICAL THERAPY PHYSICAL THERAPY EVALUATION [facility] 45 MINS Consuelo Hilario MD [address] [place] [address] [facility] [address] [place] [address] Referral ID Status Reason Start Date Expiration Date Visits Requested Visits Authorized [id number] Authorized PCP Requested Referral Auto-Generate d Referral 11/19/2023 11/18/2024 99 99 Specialty Diagnoses / Procedures Referred By Contac t Referred To Contact Diagnoses DERRICK (stress urinary incontinence, female) Procedures CONSULT TO URO GYNECOLOGY OFFICE/OUTPATIENT [facility] 60 MINUTES Consuelo Hilario MD [address] [place] [address] Referral ID Status Reason Start Date Expiration Date Visits Requested Visits Authorized [id number] Authorized PCP Requested Referral Auto-Generate d Referral 11/19/2023 02/17/2024 1 1 Specialty Diagnoses / Procedures Referred By Contac t Referred To Contact Ent - Otolaryngology Diagnoses Acute non-recurrent pansinusitis Procedures CONSULT TO ENT OFFICE/OUTPATIENT [facility] 60 MINUTES Duglas Hall, FIRE CONTROL MECHANIC.MARKETING PLANNER [address] [place] [address] Referral ID Status Reason Start Date Expiration Date Visits Requested Visits Authorized [id number] Authorized PCP Requested Referral 12/25/2023 12/24/2024 1 1 Specialty Diagnoses / Procedures Referred By Contac t Referred To Contact Diagnoses Acute non-recurrent pansinusitis Augusto Bland, FIRE CONTROL MECHANIC.TRAUMA COORDINATOR [address] [place] [address] Referral ID Status Reason Start Date Expiration Date Visits Re quested Visits Authorized [id number] Closed 1 1 Specialty Diagnoses / Procedures Referred By Contac t Referred To Contact Ent - Otolaryngology Diagnoses History of paranasal sinusotomy History of ethmoidectomy Diplopia Procedures CONSULT TO ENT OFFICE/OUTPATIENT [facility] 60 MINUTES Fifi Green MD [address] [place] [address] Referral ID Status Reason Start Date Expiration Date Visits Requested Visits Authorized [id number] Authorized PCP Requested Referral 04/09/2024 04/09/2025 1 1 Specialty Diagnoses / Procedures Referred By Contac t Referred To Contact CT IMAGING Diagnoses Other chronic sinusitis Procedures CT SINUS WO IVCON CT MAXILLOFACIAL W/O CONTRAST MATERIAL Michael Tariq MD [address] [place] [address] [facility] [place] [address] Referral ID Status Reason Start Date Expiration Date V isits Requested Visits Authorized [id number] Closed Auto-Generate d Referral 07/18/2024 08/17/2025 1 1 Chief Complaint and Reason for Visit Chief Complaint STOOL SAMPLE Family History No Family History Records Found Relationship Condition Age at Onset Recorded Date/T garcia father Cardiac disease Unknown mother Malignant neoplasm Unknown Advance Directives No Advanced Directives Records Found Advance Directive Response Recorded Date/ Time Living Will Yes July 09 2:09pm Power of Health Services Director Yes July 09 021 2:09pm Date Activated Date Inactivated Comments 01/13/2025 11:44 PM 01/14/2025 7:05 PM Date Activated Date Inactivated Comments 01/13/2025 11:44 PM 01/14/2025 7:05 PM Summary Purpose Additional Source Comments Source Comments (unrecognize d section and content) In the event this informatio n is protected by the Federal Confidentiality of Alcohol and Drug Abuse Patient Records regulations: The Federal rules restrict any use of the information to criminally investigate or prosecute any alcohol or drug abuse patient.[facility] Center[facility] the event this information is protected by the Federal Confidentiality of Alcohol and Drug Abuse Patient Records regulations: The Federal rules restrict any use of the information to criminally investigate or prosecute any alcohol or drug abuse patient.[facility] CenterIn the event this information is protected by the Federal Confidentiality of Alcohol and Drug Abuse Patient Records regulations: The Federal rules restrict any use of the information to criminally investigate or prosecute any alcohol or drug abuse patient.[facility] CenterIn the event this information is protected by the Federal Confidentiality of Alcohol and Drug Abuse Patient Records regulations: The Federal rules restrict any use of the information to criminally investigate or prosecute any alcohol or drug abuse patient.[facility] CenterIn the event this information is protected by the Federal Confidentiality of Alcohol and Drug Abuse Patient Records regulations: The Federal rules restrict any use of the information to criminally investigate or prosecute any alcohol or drug abuse patient.[facility] CenterIn the event this information is protected by the Federal Confidentiality of Alcohol and Drug Abuse Patient Records regulations: The Federal rules restrict any use of the information to criminally investigate or prosecute any alcohol or drug abuse patient.[facility] CenterIn the event this information is protected by the Federal Confidentiality of Alcohol and Drug Abuse Patient Records regulations: The Federal rules restrict any use of the information to criminally investigate or prosecute any alcohol or drug abuse patient.[facility] CenterIn the event this information is protected by the Federal Confidentiality of Alcohol and Drug Abuse Patient Records regulations: The Federal rules restrict any use of the information to criminally investigate or prosecute any alcohol or drug abuse patient.[facility] CenterIn the event this information is protected by the Federal Confidentiality of Alcohol and Drug Abuse Patient Records regulations: The Federal rules restrict any use of the information to criminally investigate or prosecute any alcohol or drug abuse patient.[facility] CenterIn the event this information is protected by the Federal Confidentiality of Alcohol and Drug Abuse Patient Records regulations: The Federal rules restrict any use of the information to criminally investigate or prosecute any alcohol or drug abuse patient.[facility] CenterIn the event this information is protected by the Federal Confidentiality of Alcohol and Drug Abuse Patient Records regulations: The Federal rules restrict any use of the information to criminally investigate or prosecute any alcohol or drug abuse patient.[facility] CenterIn the event this information is protected by the Federal Confidentiality of Alcohol and Drug Abuse Patient Records regulations: The Federal rules restrict any use of the information to criminally investigate or prosecute any alcohol or drug abuse patient.[facility] CenterIn the event this information is protected by the Federal Confidentiality of Alcohol and Drug Abuse Patient Records regulations: The Federal rules restrict any use of the information to criminally investigate or prosecute any alcohol or drug abuse patient.[facility] CenterIn the event this information is protected by the Federal Confidentiality of Alcohol and Drug Abuse Patient Records regulations: The Federal rules restrict any use of the information to criminally investigate or prosecute any alcohol or drug abuse patient.[facility] CenterIn the event this information is protected by the Federal Confidentiality of Alcohol and Drug Abuse Patient Records regulations: The Federal rules restrict any use of the information to criminally investigate or prosecute any alcohol or drug abuse patient.[facility] CenterIn the event this information is protected by the Federal Confidentiality of Alcohol and Drug Abuse Patient Records regulations: The Federal rules restrict any use of the information to criminally investigate or prosecute any alcohol or drug abuse patient.[facility] CenterIn the event this information is protected by the Federal Confidentiality of Alcohol and Drug Abuse Patient Records regulations: The Federal rules restrict any use of the information to criminally investigate or prosecute any alcohol or drug abuse patient.[facility] CenterIn the event this information is protected by the Federal Confidentiality of Alcohol and Drug Abuse Patient Records regulations: The Federal rules restrict any use of the information to criminally investigate or prosecute any alcohol or drug abuse patient.[facility] CenterIn the event this information is protected by the Federal Confidentiality of Alcohol and Drug Abuse Patient Records regulations: The Federal rules restrict any use of the information to criminally investigate or prosecute any alcohol or drug abuse patient.[facility] CenterIn the event this information is protected by the Federal Confidentiality of Alcohol and Drug Abuse Patient Records regulations: The Federal rules restrict any use of the information to criminally investigate or prosecute any alcohol or drug abuse patient.[facility] CenterIn the event this information is protected by the Federal Confidentiality of Alcohol and Drug Abuse Patient Records regulations: The Federal rules restrict any use of the information to criminally investigate or prosecute any alcohol or drug abuse patient.[facility] CenterIn the event this information is protected by the Federal Confidentiality of Alcohol and Drug Abuse Patient Records regulations: The Federal rules restrict any use of the information to criminally investigate or prosecute any alcohol or drug abuse patient.[facility] CenterIn the event this information is protected by the Federal Confidentiality of Alcohol and Drug Abuse Patient Records regulations: The Federal rules restrict any use of the information to criminally investigate or prosecute any alcohol or drug abuse patient.[facility] CenterIn the event this information is protected by the Federal Confidentiality of Alcohol and Drug Abuse Patient Records regulations: The Federal rules restrict any use of the information to criminally investigate or prosecute any alcohol or drug abuse patient.[facility] CenterIn the event this information is protected by the Federal Confidentiality of Alcohol and Drug Abuse Patient Records regulations: The Federal rules restrict any use of the information to criminally investigate or prosecute any alcohol or drug abuse patient.[facility] CenterIn the event this information is protected by the Federal Confidentiality of Alcohol and Drug Abuse Patient Records regulations: The Federal rules restrict any use of the information to criminally investigate or prosecute any alcohol or drug abuse patient.[facility] CenterIn the event this information is protected by the Federal Confidentiality of Alcohol and Drug Abuse Patient Records regulations: The Federal rules restrict any use of the information to criminally investigate or prosecute any alcohol or drug abuse patient.[facility] CenterIn the event this information is protected by the Federal Confidentiality of Alcohol and Drug Abuse Patient Records regulations: The Federal rules restrict any use of the information to criminally investigate or prosecute any alcohol or drug abuse patient.[facility] CenterIn the event this information is protected by the Federal Confidentiality of Alcohol and Drug Abuse Patient Records regulations: The Federal rules restrict any use of the information to criminally investigate or prosecute any alcohol or drug abuse patient.[facility] CenterIn the event this information is protected by the Federal Confidentiality of Alcohol and Drug Abuse Patient Records regulations: The Federal rules restrict any use of the information to criminally investigate or prosecute any alcohol or drug abuse patient.[facility] CenterIn the event this information is protected by the Federal Confidentiality of Alcohol and Drug Abuse Patient Records regulations: The Federal rules restrict any use of the information to criminally investigate or prosecute any alcohol or drug abuse patient.[facility] CenterIn the event this information is protected by the Federal Confidentiality of Alcohol and Drug Abuse Patient Records regulations: The Federal rules restrict any use of the information to criminally investigate or prosecute any alcohol or drug abuse patient.[facility] CenterIn the event this information is protected by the Federal Confidentiality of Alcohol and Drug Abuse Patient Records regulations: The Federal rules restrict any use of the information to criminally investigate or prosecute any alcohol or drug abuse patient.[facility] CenterIn the event this information is protected by the Federal Confidentiality of Alcohol and Drug Abuse Patient Records regulations: The Federal rules restrict any use of the information to criminally investigate or prosecute any alcohol or drug abuse patient.[facility] CenterIn the event this information is protected by the Federal Confidentiality of Alcohol and Drug Abuse Patient Records regulations: The Federal rules restrict any use of the information to criminally investigate or prosecute any alcohol or drug abuse patient.[facility] CenterIn the event this information is protected by the Federal Confidentiality of Alcohol and Drug Abuse Patient Records regulations: The Federal rules restrict any use of the information to criminally investigate or prosecute any alcohol or drug abuse patient.[facility] CenterIn the event this information is protected by the Federal Confidentiality of Alcohol and Drug Abuse Patient Records regulations: The Federal rules restrict any use of the information to criminally investigate or prosecute any alcohol or drug abuse patient.[facility] CenterIn the event this information is protected by the Federal Confidentiality of Alcohol and Drug Abuse Patient Records regulations: The Federal rules restrict any use of the information to criminally investigate or prosecute any alcohol or drug abuse patient.[facility] CenterIn the event this information is protected by the Federal Confidentiality of Alcohol and Drug Abuse Patient Records regulations: The Federal rules restrict any use of the information to criminally investigate or prosecute any alcohol or drug abuse patient.[facility] CenterIn the event this information is protected by the Federal Confidentiality of Alcohol and Drug Abuse Patient Records regulations: The Federal rules restrict any use of the information to criminally investigate or prosecute any alcohol or drug abuse patient.[facility] CenterIn the event this information is protected by the Federal Confidentiality of Alcohol and Drug Abuse Patient Records regulations: The Federal rules restrict any use of the information to criminally investigate or prosecute any alcohol or drug abuse patient.[facility] CenterIn the event this information is protected by the Federal Confidentiality of Alcohol and Drug Abuse Patient Records regulations: The Federal rules restrict any use of the information to criminally investigate or prosecute any alcohol or drug abuse patient.[facility] CenterIn the event this information is protected by the Federal Confidentiality of Alcohol and Drug Abuse Patient Records regulations: The Federal rules restrict any use of the information to criminally investigate or prosecute any alcohol or drug abuse patient.[facility] CenterIn the event this information is protected by the Federal Confidentiality of Alcohol and Drug Abuse Patient Records regulations: The Federal rules restrict any use of the information to criminally investigate or prosecute any alcohol or drug abuse patient.[facility] CenterIn the event this information is protected by the Federal Confidentiality of Alcohol and Drug Abuse Patient Records regulations: The Federal rules restrict any use of the information to criminally investigate or prosecute any alcohol or drug abuse patient.[facility] CenterIn the event this information is protected by the Federal Confidentiality of Alcohol and Drug Abuse Patient Records regulations: The Federal rules restrict any use of the information to criminally investigate or prosecute any alcohol or drug abuse patient.[facility] Care Teams (unrecognized sec tion and content) Test Preparer Relationship Specialty Start Date End Date Fifi Green MD [address] [place] [address] PCP - General 09/19/02 Test Preparer Relationship Specialty Start Date End Date Fifi Green MD [address] [place] [address] PCP - General 09/19/02 Test Preparer Relationship Specialty Start Date End Date Fifi Green MD [facility] [place] [address] PCP - General 09/19/02 Test Preparer Relationship Specialty Start Date End Date Fifi Green MD [facility] [place] [address] PCP - General 09/19/02 Test Preparer Relationship Specialty Start Date End Date Fifi Green MD [facility] [place] [address] PCP - General 09/19/02 Test Preparer Relationship Specialty Start Date End Date Fifi Green MD [facility] [place] [address] PCP - General 09/19/02 Test Preparer Relationship Specialty Start Date End Date Fifi Green MD [address] [place] [address] PCP - General 09/19/02 Test Preparer Relationship Specialty Start Date End Date Fifi Green MD [address] [place] [address] PCP - General 09/19/02 Test Preparer Relationship Specialty Start Date End Date Fifi Green MD [address] [place] [address] PCP - General 09/19/02 Test Preparer Relationship Specialty Start Date End Date Fifi Green MD [address] [place] [address] PCP - General 09/19/02 Test Preparer Relationship Specialty Start Date End Date Fifi Green MD [address] [place] [address] PCP - General 09/19/02 Test Preparer Relationship Specialty Start Date End Date Fifi Green MD [address] [place] [address] PCP - General 09/19/02 Test Preparer Relationship Specialty Start Date End Date Fifi Green MD [address] [place] [address] PCP - General 09/19/02 Team Status: Active Member Role Status Dates Dr. Fifi Green MD Family Provider Active Dr. Fifi Green MD Primary Care Provider Active Team Status: Inactive Member Role Status Dates Dr. Fifi Green MD Primary Care Provider Active Dr. Jj Mcguire MD Attending Provider, Referring Provider Active Team Status: Active Member Role Status Dates Dr. Fifi Green MD Primary Care Provider Active Dr. Jj Mcguire MD Attending Provider, Referring Provider Active Test Preparer Relationship Specialty Start Date End Date Fifi Green MD [address] [facility] [place] [address] PCP - General 09/19/02 Test Preparer Relationship Specialty Start Date End Date Fifi Green MD [address] [place] [address] PCP - General 09/19/02 Test Preparer Relationship Specialty Start Date End Date Fifi Green MD [address] [place] [address] PCP - General 09/19/02 Test Preparer Relationship Specialty Start Date End Date Fifi Green MD [address] [place] [address] PCP - General 09/19/02 Test Preparer Relationship Specialty Start Date End Date Fifi Green MD [address] [facility] [place] [address] PCP - General 09/19/02 Test Preparer Relationship Specialty Start Date End Date Fifi Green MD [address] [place] [address] PCP - General 09/19/02 Test Preparer Relationship Specialty Start Date End Date Fifi Green MD [address] [place] [address] PCP - General 09/19/02 Test Preparer Relationship Specialty Start Date End Date Fifi Green MD [address] [place] [address] PCP - General 09/19/02 Test Preparer Relationship Specialty Start Date End Date Fifi Green MD [address] [place] [address] PCP - General 09/19/02 Test Preparer Relationship Specialty Start Date End Date Fifi Green MD [address] [place] [address] PCP - General 09/19/02 Test Preparer Relationship Specialty Start Date End Date Fifi Green MD [address] [place] [address] PCP - General 09/19/02 Test Preparer Relationship Specialty Start Date End Date Fifi Green MD [address] [place] [address] PCP - General 09/19/02 Test Preparer Relationship Specialty Start Date End Date Fifi Green MD [address] [place] [address] PCP - General 09/19/02 Duglas Hall, FIRE CONTROL MECHANIC.MARKETING PLANNER [address] [place] [address] Roll Out Manager Internal Medicine 06/09/24 Augusto Bland, FIRE CONTROL MECHANIC.TRAUMA COORDINATOR [address] [place] [address] Roll Out Manager Internal Medicine 06/09/24 Test Preparer Relationship Specialty Start Date End Date Fifi Green MD [address] [facility] [place] [address] PCP - General 09/19/02 Duglas Hall, FIRE CONTROL MECHANIC.MARKETING PLANNER [address] [facility] [place] [address] Roll Out Manager Internal Medicine 06/09/24 Augusto Bland FIRE CONTROL MECHANIC.TRAUMA COORDINATOR [address] [place] [address] Roll Out Manager Internal Medicine 06/09/24 Test Preparer Relationship Specialty Start Date End Date Fifi Green MD [address] [place] [address] PCP - General 09/19/02 Duglas Hall, FIRE CONTROL MECHANIC.MARKETING PLANNER [address] [facility] [place] [address] Roll Out Manager Internal Medicine 06/09/24 Augusto Bland FIRE CONTROL MECHANIC.TRAUMA COORDINATOR [address] [facility] [place] [address] Roll Out Manager Internal Medicine 06/09/24 Test Preparer Relationship Specialty Start Date End Date Fifi Green MD [address] [facility] [place] [address] PCP - General 09/19/02 Duglas Hall, FIRE CONTROL MECHANIC.MARKETING PLANNER [address] [facility] [place] [address] Roll Out Manager Internal Medicine 06/09/24 Augusto Bland FIRE CONTROL MECHANIC.TRAUMA COORDINATOR [address] [place] [address] Roll Out Manager Internal Medicine 06/09/24 Test Preparer Relationship Specialty Start Date End Date Fifi Green MD [address] [place] [address] PCP - General 09/19/02 Duglas Hall, FIRE CONTROL MECHANIC.MARKETING PLANNER [address] [place] [address] Roll Out Manager Internal Medicine 06/09/24 Augusto Bland FIRE CONTROL MECHANIC.TRAUMA COORDINATOR [address] [place] [address] [facility] Internal Medicine 06/09/24 Test Preparer Relationship Specialty Start Date End Date Fifi Green MD [address] [place] [address] PCP - General 09/19/02 Duglas Hall, FIRE CONTROL MECHANIC.MARKETING PLANNER [address] [place] [address] Roll Out Manager Internal Medicine 06/09/24 Augusto Bland FIRE CONTROL MECHANIC.TRAUMA COORDINATOR [address] [place] [address] [facility] Internal Medicine 06/09/24 Test Preparer Relationship Specialty Start Date End Date Fifi Green MD [address] [place] [address] PCP - General 09/19/02 Duglas Hall, FIRE CONTROL MECHANIC.MARKETING PLANNER [address] [place] [address] Roll Out Manager Internal Medicine 06/09/24 Augusot Bland FIRE CONTROL MECHANIC.TRAUMA COORDINATOR [address] [place] [address] [facility] Internal Medicine 06/09/24 Test Preparer Relationship Specialty Start Date End Date Fifi Green MD [address] [place] [address] PCP - General 09/19/02 Duglas Hall, FIRE CONTROL MECHANIC.MARKETING PLANNER [address] [place] [address] [facility] Internal Medicine 06/09/24 Augusto Bland FIRE CONTROL MECHANIC.TRAUMA COORDINATOR [address] [place] [address] [facility] Internal Medicine 06/09/24 Test Preparer Relationship Specialty Start Date End Date Fifi Green MD [address] [place] [address] PCP - General 09/19/02 Duglas Hall, FIRE CONTROL MECHANIC.MARKETING PLANNER [address] [place] [address] [facility] Internal Medicine 06/09/24 Augusto Bland FIRE CONTROL MECHANIC.TRAUMA COORDINATOR [address] [place] [address] [facility] Internal Medicine 06/09/24 Test Preparer Relationship Specialty Start Date End Date Fifi Green MD [address] [place] [address] PCP - General 09/19/02 Duglas Hall, FIRE CONTROL MECHANIC.MARKETING PLANNER [address] [facility] [place] [address] Roll Out Manager Internal Medicine 06/09/24 Augusto Bland APRN.TRAUMA COORDINATOR [address] [facility] [place] [place] [address] Roll Out Manager Internal Medicine 06/09/24 Test Preparer Relationship Specialty Start Date End Date Fifi Green MD [address] [facility] [place] [address] PCP - General 09/19/02 Duglas Hall APRN.MARKETING PLANNER [address] [facility] [place] [address] Roll Out Manager Internal Medicine 06/09/24 Augusto Bland APRN.TRAUMA COORDINATOR [address] [facility] [place] [place] [address] Roll Out Manager Internal Medicine 06/09/24 Test Preparer Relationship Specialty Start Date End Date Fifi Green MD [address] [facility] [place] [address] PCP - General 09/19/02 Duglas Hall APRN.MARKETING PLANNER [address] [facility] [place] [place] [address] Roll Out Manager Internal Medicine 06/09/24 Augusto Bland APRN.TRAUMA COORDINATOR [address] [facility] [place] [address] Roll Out Manager Internal Medicine 09/23/24 Test Preparer Relationship Specialty Start Date End Date Fifi Green MD [address] [facility] [place] [address] PCP - General 09/19/02 Duglas Hall, FIRE CONTROL MECHANIC.MARKETING PLANNER [address] [place] [address] Roll Out Manager Internal Medicine 06/09/24 Augusto Bland FIRE CONTROL MECHANIC.TRAUMA COORDINATOR [address] [facility] [address] Roll Out Manager Internal Medicine 09/23/24 Test Preparer Relationship Specialty Start Date End Date Fifi Green MD [address] [facility] [address] PCP - General 09/19/02 Duglas Hall FIRE CONTROL MECHANIC.MARKETING PLANNER [address] [facility] [place] [address] Roll Out Manager Internal Medicine 06/09/24 Augusto Bland FIRE CONTROL MECHANIC.TRAUMA COORDINATOR [address] [facility] [address] Roll Out Manager Internal Medicine 09/23/24 Test Preparer Relationship Specialty Start Date End Date Fifi Green MD [address] [facility] [address] PCP - General 09/19/02 Duglas Hall, FIRE CONTROL MECHANIC.MARKETING PLANNER [address] [facility] [address] Roll Out Manager Internal Medicine 06/09/24 Augusto Bland FIRE CONTROL MECHANIC.TRAUMA COORDINATOR [address] [facility] [place] [place] [address] Roll Out Manager Internal Medicine 06/09/24 09/19/24 Test Preparer Relationship Specialty Start Date End Date Fifi Green MD [address] [facility] [address] PCP - General 09/19/02 Augusto Bland, FIRE CONTROL MECHANIC.TRAUMA COORDINATOR [address] [facility] [address] Roll Out Manager Internal Medicine 09/23/24 Duglas Hall, FIRE CONTROL MECHANIC.MARKETING PLANNER [address] [facility] [place] [place] [address] Roll Out Manager Internal Medicine 11/19/24 Test Preparer Relationship Specialty Start Date End Date Fifi Green MD [address] [facility] [place] [address] PCP - General 09/19/02 Augusto Bland, FIRE CONTROL MECHANIC.TRAUMA COORDINATOR [address] [facility] [place] [address] Roll Out Manager Internal Medicine 09/23/24 Duglas Hall, FIRE CONTROL MECHANIC.MARKETING PLANNER [address] [facility] [place] [address] Roll Out Manager Internal Medicine 11/19/24 Test Preparer Relationship Specialty Start Date End Date Fifi Green [address] [facility] [address] PCP - General Internal Medicine 01/14/25 Test Preparer Relationship Specialty Start Date End Date Fifi Green [address] [facility] [address] PCP - General Internal Medicine 01/14/25 Test Preparer Relationship Specialty Start Date End Date Fifi Green [address] [place] [address] PCP - General Internal Medicine 01/14/25 Reason for Visit (unrecogniz ed section and content) Reason Onset Date Comments Refill Request 03/07/2022 Reason Onset Date Comments Refill Request 04/26/2022 Reason Comments mammogram orders Reason Comments Yearly Exam Reason Comments Orders Reason Onset Date Comments Refill Request 03/26/2023 Reason Comments F/U 6 months Reason Comments Change In Bowel Habits Reason Comments 6 mo follow up Reason Comments Follow Up Follow up on medicat ion- Myrbetriq Reason Comments ER F/U Reason Comments URI on going for about 6 weeks has had 3 rounds of antibiotic, 1 round of prednisoneCough continues dry non-productive body aches Reason Onset Date Comments Refill Request 02/29/2024 Reason Comments F/U 6 months Labs prior Reason Comments complications after sinus surgery Patient Question Reason Comments Patient Update Reason Comments Medication Request Reason Comments Patient Update Patient Question Reason Onset Date Comments Refill Request 05/16/2024 Reason Comments Orders Mammogram Reason Onset Date Comments Refill Request 07/11/2024 Reason Comments Follow Up Specialty Diagnoses / Procedures Referred By Ever barrera Referred To Contact Ent - Otolaryngology Diagnoses History of paranasal sinusotomy History of ethmoidectomy Diplopia Procedures CONSULT TO ENT OFFICE/OUTPATIENT [facility] 60 MINUTES Fifi Green MD [address] [place] [address] Referral ID Status Reason Start Date Expiration Date V isits Requested Visits Authorized [id number] Closed PCP Requested Referral 04/09/2024 04/09/2025 1 1 Reason Comments F/U 3 Month Labs scanned to EPIC Reason Comments Radiology CT Specialty Diagnoses / Procedures Referred By Ever barrera Referred To Contact CT IMAGING Diagnoses Other chronic sinusitis Procedures CT SINUS WO IVCON CT MAXILLOFACIAL W/O CONTRAST MATERIAL Michael Tariq MD [address] [place] [address] [place] [address] Referral ID Status Reason Start Date Expiration Date V isits Requested Visits Authorized [id number] Closed Auto-Generate d Referral 07/18/2024 08/17/2025 1 1 Reason Comments Follow Up Reason Comments Patient Question Reason Comments Insurance Authorization Reason Comments Medicare Wellness Exam Reason Comments Follow Up 3 month Reason Onset Date Comments Refill Request 12/22/2024 Reason Comments Follow-up S/P fall 01/13/25 Reason Comments New Patient Goals (unrecognized section and content) Goals may be documented in a n alternate sectionGoals may be documented in an alternate section INFORMATION SOURCE (unrecogn ized section and content) DATE CREATED AUTHOR 06/14/2024 [facility] DATE CREATED AUTHOR AUTHOR'S ORGANIZ ATION 12/04/2024 [facility] DATE CREATED AUTHOR AUTHOR'S ORGANIZ ATION 01/18/2025 [facility] DATE CREATED AUTHOR AUTHOR'S ORGANIZ ATION 01/21/2025 [facility] DATE CREATED AUTHOR AUTHOR'S ORGANIZ ATION 01/22/2025 [facility] DATE CREATED AUTHOR AUTHOR'S ORGANIZ ATION 01/23/2025 [facility] Scheduled Active and Recently Administ ered Medications (unrecognized section and content) Medication Order 01/12/2025 01/13/2025 01/14/2025 acetaminophen (Ofirmev) IVPB 1,000 mg (CANCELED) 1,000 mg, IntraVENous, at 400 mL/hr, Administer over 15 Minutes, Every 6 hours scheduled (4 times per day), First dose on Sun01/14/25 at 0000 2329 (New Bag - Provider: Yu Diop RN)2349 (Stopped - Provider: Yu Diop RN) 0611 (New Bag - Provider: Yu Diop, AUSTYN)0642 (Stopped - Provider: Yu Diop, AUSTYN) acetaminophen (Tylenol) tablet 1,000 mg 1,000 mg, Oral, Every 8 hours scheduled (3 times per day), First dose on Sun01/14/25 at 1400, If inadequate response within 60 minutes, proceed to next-line agent for same PRN reason or contact provider if no further options ordered. 1400 (Canceled Entry - Provider: Automatic Discharge Provider - Comment: Automatically canceled at discontinue of medication order) bacitracin ointment Topical, 3 times daily, First dose on Sun01/14/25 at 0000, Nasal laceration 0007 (Given - Provid er: Yu Diop RN)1033 (Given - Provider: Kermit Kerns RN)1400 (Canceled Entry - Provider: Automatic Discharge Provider - Comment: Automatically canceled at discontinue of medication order) buPROPion XL (Wellbutrin XL) 24 hr tablet 300 mg 300 mg, Oral, Daily, First dose on Sun01/14/25 at 1045, Do not crush, chew, or split. 1133 (Given - Provid er: Jeferson Gant RN) hydroCHLOROthiazide (HYDRODiuril) tablet 25 mg(Linked Group 1) 25 mg, Oral, Daily, First dose on Sun01/14/25 at 1045 1133 (Given - Provid er: Jeferson Gant RN) Insulin Lispro (Humalog) injection 0-12 Units(Linked Group 2) 0-12 Units, SubCUTAneous, 3 times daily with meals, First dose on Sun01/14/25 at 0800, Medium Dose Correction Algorithm Glucose: Dose: LESS than 150 No Insulin 150-199 2 Units 200-249 4 Units 250-299 6 Units 300-349 8 Units 350-400 10 Units Above 400 12 Units 1032 (Not Given - Provider: Kermit Kerns RN - Reason: Order parameters not met - Comment: BGT [id number])1201 (Given - Provider: Jeferson Gant RN)1700 (Canceled Entry - Provider: Automatic Discharge Provider - Comment: Automatically canceled at discontinue of medication order) Insulin Lispro (Humalog) injection 0-12 Units(Linked Group 2) 0-12 Units, SubCUTAneous, Nightly, First dose on Sun01/14/25 at 0000, If eating or bolus tube feeding: Medium Dose Correction Algorithm Glucose: Dose: LESS than 150 No Insulin 150-199 2 Units 200-249 4 Units 250-299 6 Units 300-349 8 Units 350-400 10 Units Above 400 12 Units 0044 (Not Given - Provider: Yu Diop, AUSTYN - Reason: Order parameters not met - Comment: MBS 141) levothyroxine (Synthroid, Levoxyl) tablet 112 mcg 112 mcg, Oral, Daily, First dose on Sun01/14/25 at 1045, Tube feeding (TF) interaction, obtain physician order to manage, recommend holding TF for 30 minutes before and after dose. 1133 (Given - Provid er: Jeferson Gant RN) lidocaine-EPINEPHrine (Xylocaine W/EPI) 1 %-1:[id number] injection 20 mL (COMPLETED) 20 mL, Injection, Once, On Sun01/13/25 at 2200, For 1 dose, Please have at bedside for General Surgery Resident. Please & Thanks 2322 (Given - Provider: Yu Diop RN) losartan (Cozaar) tablet 100 mg(Linked Group 1) 100 mg, Oral, Daily, First dose on Sun01/14/25 at 1045 1042 (Given - Provid er: Kermit Kerns RN) methocarbamol (Robaxin) tablet 500 mg 500 mg, Oral, Every 8 hours scheduled (3 times per day), First dose on Sun01/14/25 at 1400 1400 (Canceled Entry - Provider: Automatic Discharge Provider - Comment: Automatically canceled at discontinue of medication order) mupirocin (Bactroban) 2 % ointment 1 Application 1 Application, Nasal, 2 times daily, First dose on Sun01/13/25 at 2345, For 5 days, Indications: MRSA Nasal Decolonization 0007 (Given - Provid er: Yu Diop RN)1032 (Given - Provider: Kermit Kerns RN) pantoprazole (ProtoNix) 40 mg in sodium chloride (PF) 0.9 % 10 mL injection (CANCELED) 40 mg, IntraVENous, Administer over 2 Minutes, Daily before breakfast, First dose on Sun01/14/25 at 0600, Reconstitute with 10 ml NS. Vial expires 2 hrs after reconstitution. 0611 (Given - Provid er: Yu Diop RN) polyethylene glycol (PEG) 3350 (Miralax) packet 17 g 17 g, Oral, Daily, First dose on Sun01/14/25 at 0600, 1st line for treatment of constipation - give scheduled if no bowel movement in past 24 hours. 0507 (Not Given - Provider: Yu Diop RN - Reason: NPO) rosuvastatin (Crestor) tablet 10 mg 10 mg, Oral, Daily, First dose on Sun01/14/25 at 1045 1042 (Given - Provid er: Kermit Kerns RN) sennosides (Senokot) tablet 8.6 mg 8.6 mg (1 tablet), Oral, Nightly, First dose on Sun01/14/25 at 2100 Continuous Medication Order 01/12/2025 01/13/2025 01/14/2025 lactated Ringer's (LR) infusion (CANCELED) 75 mL/hr, IntraVENous, Continuous, Starting on Sun01/13/25 at 2345 0008 (New Bag - Prov ider: Yu Diop RN)1033 (Stopped - Provider: Kermit Kerns RN - Comment: [Order ends at this time. Document the following action when infusion is complete: Stopped]) PRN Medication Order 01/12/2025 01/13/2025 01/14/2025 albuterol (2.5 MG/3ML) 0.083% nebulizer solution 2.5 mg 2.5 mg, Nebulization, Every 2 hour PRN, wheezing, Starting on Sun01/13/25 at 2341, Initiate RT Bronchodilator Protocol: celecoxib (CeleBREX) capsule 200 mg 200 mg, Oral, Daily PRN, mild pain (1-3), Starting on Sun01/14/25 at 1028 dextrose 5 % infusion 100 mL/hr, IntraVENous, PRN, Blood sugar less than 70mg/dL, Starting on Sun01/13/25 at 2348, Start infusion following administration of dextrose 50% or glucagon. dextrose 50 % solution 12.5 g 12.5 g, IntraVENous, PRN, low blood sugar, Blood glucose less than 70 mg/dL and patient NOT ALERT or NPO., Starting on Sun01/13/25 at 2348, If patient does not respond within 5 minutes, repeat dose x1. Start D5W at 100 mL/hour until ordering provider can be reached. Repeat blood glucose in 15 minutes. If blood glucose is less than 70 mg/dL, repeat treatment and recheck blood glucose in 15 minutes x2. If using Glucostabilizer, dose as instructed per system. dicyclomine (Bentyl) capsule 10 mg 10 mg, Oral, Every 6 hours PRN, as needed, Starting on Sun01/14/25 at 1031 glucagon (human recombinant) injection 1 mg 1 mg, IntraMUSCular, PRN, low blood sugar, Blood glucose less than 70 mg/dL and patient NOT ALERT or NPO and does not have IV access., Starting on Sun01/13/25 at 2348, After administration, attempt intravenous access and start D5W at 100 mL/hr. Repeat blood glucose in 15 minutes x2 and notify provider. glucose oral gel 15 g 15 g, Oral, As needed, low blood sugar, Starting on Sun01/13/25 at 2348, If blood glucose less than 50 mg/dL and patient ALERT and NOT NPO, give 2 tubes glucose gel. If blood glucose less than 70 mg/dL and patient ALERT and NOT NPO, give 1 tube glucose gel. Repeat blood glucose in 15 minutes. If blood glucose is less than 70 mg/dL, repeat treatment and recheck blood glucose in 15 minutes x2 and notify provider. hydrALAZINE (Apresoline) injection 10 mg 10 mg, IntraVENous, Every 2 hour PRN, high blood pressure, 2nd Line SBP > 160 mmHg, hold for HR > 110 bpm, Starting on Sun01/13/25 at 2341 HYDROmorphone (Dilaudid) injection 0.25 mg (CANCELED) 0.25 mg, IntraVENous, Every 3 hours PRN, moderate pain (4-6), Starting on Sun01/13/25 at 2341, If oral and IV narcotics ordered, use oral first and only use IV if oral is ineffective or cannot take oral. Do Not give oral and IV within 1 hour of each other unless specifically ordered. 0007 (Given - Provid er: Yu Diop RN)0327 (Given - Provider: Yu Diop RN) HYDROmorphone (Dilaudid) injection 0.5 mg(Linked Group 3) 0.5 mg, IntraVENous, Every 3 hours PRN, breakthrough, Starting on Sun01/14/25 at 1029, If oral and IV narcotics ordered, use oral first and only use IV if oral is ineffective or cannot take oral. Do Not give oral and IV within 1 hour of each other unless specifically ordered. iopamidol (Isovue-370) 76 % injection 75 mL (COMPLETED) 75 mL, IntraVENous, IMG once PRN, contrast, Starting on Sun01/13/25 at 2005, For 1 dose 2005 (Given - Provider: Cassie Longo) labetalol (Normodyne,Trandate) injection 10 mg 10 mg, IntraVENous, Every 2 hour PRN, high blood pressure, 1st line SBP > 160 mmHg, hold for HR < 60 bpm, Starting on Sun01/13/25 at 2341 naloxone (Narcan) injection 0.4 mg 0.4 mg, IntraVENous, Every 5 min PRN, opioid reversal, respiratory depression, Starting on Sun01/13/25 at 2351, +++ For RR <10, pinpoint pupils, over sedation for opioid reversal - MUST notify air transport professionals provider immediately after first dose, may give IM or SQ if no IV access +++ ondansetron (Zofran) injection 4 mg(Linked Group 4) 4 mg, IntraVENous, Every 6 hours PRN, nausea, vomiting, Starting on Sun01/13/25 at 2341, 1st Line. Give IV if patient is unable to take orally. If inadequate response within 60 minutes, proceed to next-line agent or contact provider if no further options ordered. 1239 (Given - Provid er: Jeferson Gant RN) ondansetron ODT (Zofran-ODT) disintegrating tablet 4 mg(Linked Group 4) 4 mg, Oral, Every 8 hours PRN, nausea, vomiting, Starting on Sun01/13/25 at 2341, 1st Line. If inadequate response within 60 minutes, proceed to next-line agent or contact provider if no further options ordered. Patient should allow tablet to dissolve on tongue. Do not remove from blister pack until just before administering. 1239 (See Alternativ e - Provider: Jeferson Gant RN) oxyCODONE (Roxicodone) immediate release tablet 10 mg(Linked Group 5) 10 mg, Oral, Every 4 hours PRN, severe pain (7-10), Starting on Sun01/14/25 at 1028 1042 (See Alternativ e - Provider: Kermit Kerns RN) oxyCODONE (Roxicodone) immediate release tablet 5 mg(Linked Group 5) 5 mg, Oral, Every 4 hours PRN, moderate pain (4-6), Starting on Sun01/14/25 at 1028 1042 (Given - Provid er: Kermit Kerns RN) Linked Groups Order Group 1: losartan (Cozaar) tablet 100 mgJump to med 100 mg, Oral, Daily, First dose on Sun01/14/25 at 1045 And hydroCHLOROthiazide (HYDRODiuril) tablet 25 mgJump to med 25 mg, Oral, Daily, First dose on Sun01/14/25 at 1045 Group 2: Insulin Lispro (Humalog) injection 0-12 UnitsJump to med 0-12 Units, SubCUTAneous, 3 times daily with meals, First dose on Sun01/14/25 at 0800, Medium Dose Correction Algorithm Glucose: Dose: LESS than 150 No Insulin 150-199 2 Units 200-249 4 Units 250-299 6 Units 300-349 8 Units 350-400 10 Units Above 400 12 Units And Insulin Lispro (Humalog) injection 0-12 UnitsJump to med 0-12 Units, SubCUTAneous, Nightly, First dose on Sun01/14/25 at 0000, If eating or bolus tube feeding: Medium Dose Correction Algorithm Glucose: Dose: LESS than 150 No Insulin 150-199 2 Units 200-249 4 Units 250-299 6 Units 300-349 8 Units 350- 400 10 Units Above 400 12 Units Group 3: HYDROmorphone (Dilaudid) injection 0.5 mgJump to med 0.5 mg, IntraVENous, Every 3 hours PRN, breakthrough, Starting on Sun01/14/25 at 1029, If oral and IV narcotics ordered, use oral first and only use IV if oral is ineffective or cannot take oral. Do Not give oral and IV within 1 hour of each other unless specifically ordered. Group 4: ondansetron ODT (Zofran-ODT) disintegrating tablet 4 mgJump to med 4 mg, Oral, Every 8 hours PRN, nausea, vomiting, Starting on Sun01/13/25 at 2341, 1st Line. If inadequate response within 60 minutes, proceed to next-line agent or contact provider if no further options ordered. Patient should allow tablet to dissolve on tongue. Do not remove from blister pack until just before administering. Or ondansetron (Zofran) injection 4 mgJump to med 4 mg, IntraVENous, Every 6 hours PRN, nausea, vomiting, Starting on Sun01/13/25 at 2341, 1st Line. Give IV if patient is unable to take orally. If inadequate response within 60 minutes, proceed to next-line agent or contact provider if no further options ordered. Group 5: oxyCODONE (Roxicodone) immediate release tablet 5 mgJump to med 5 mg, Oral, Every 4 hours PRN, moderate pain (4-6), Starting on Sun01/14/25 at 1028 Or oxyCODONE (Roxicodone) immediate release tablet 10 mgJump to med 10 mg, Oral, Every 4 hours PRN, severe pain (7-10), Starting on Sun01/14/25 at 1028 FOR RECORDS PERTAINING TO PATIENTS WHO ARE OR HAVE BEEN ENROLLED IN A CHEMICAL DEPENDENCY/SUBSTANCEABUSE PROGRAM, SOME INFORMATION MAY BE OMITTED. This clinical summary was aggregated from multiple sources. Caution should be exercised in using it in the provision of clinical care. This summary normalizes information from multiple sources, and as a consequence, information in this document may materially change the coding, format and clinical context of patient data. In addition, data may be omitted in some cases. CLINICAL DECISIONS SHOULD BE BASED ON THE PRIMARY CLINICAL RECORDS. [facility]. provides no warranty or guarantee of the accuracy or completeness of information in this document.
[2025-01-26] MEDS: Lidocaine 2% Viscous15 ML UDC 15 ML PO (02:39)
[2025-01-26 02:47] LABS: Hematocrit 43.4 % (37-47); Hemoglobin 14.1 g/dL (12.0-15.0); Immature Granulocytes Count 0.020 X10^3/uL (0.0-0.0); Mean Corp Hgb Conc 32.5 g/dL (32-36); Mean Corpuscular Volume 87.0 fL (81-99); Mean Platelet Vol. 9.6 fl (6.2-12.0); NRBC Flagged by Analyzer 0 % (0-5); Platelet Count 293 K/mm3 (150-450); RBC Distribution Width CV 12.9 % (11.6-14.6); RBC Distribution Width SD 40.9 fl (35.1-43.9); Red Blood Count 4.99 M/mm3 (4.2-5.4); White Blood Count 9.9 K/mm3 (4.4-11.0)
[2025-01-26 03:17] LABS: AST(SGOT) 22 U/L (<=31); Alanine Aminotransfer ALT/SGPT 23 U/L (<=34); Albumin, Serum 4.2 g/dL (3.4-4.8); Alkaline Phosphatase 111 U/L (35-104); Anion Gap 14 (5-15); BUN 20 mg/dL (4-19); BUN/Creat Ratio 33.0 RATIO (10-20); Calcium,Total 9.6 mg/dL (7.6-11.0); Carbon Dioxide 24.7 mmol/L (21.0-32.0); Chloride 100 mmol/L (98-108); Estimated Creatinine Clearance 59.61 ml/min (50-250); Globulin 2.5 g/dL (2.2-4.2); Glucose 212 mg/dL (70-99); Potassium 4.0 mmol/L (3.3-5.1)
[2025-01-26 03:38] LABS: Lipase > 3000 U/L (13-75)
[2025-01-26] MEDS: Cefepime HCl 2 GM in 0.9% Normal Saline (100mL MB+) 100 ML IV (04:27)
--- NOTE | 2025-01-26 07:33 | PCA ---
CALLED PHYSICIANS AND THEY WILL BE HERE @ [phone]
[2025-01-26 08:06] LABS: Mucous, Urine 0 SEEN /hpf (<or=2+); Red Blood Cells-Urine 0 SEEN /hpf (0-5)
[2025-01-26 08:12] LABS: Color, Urine Yellow (Yellow); Glucose, Dipstick 1000 mg/dl (Normal); Ketone-Dipstick 15 mg/dl (Negative); Leukocyte Esterase-Dipstick Negative /ul (Negative); Nitrite-Dipstick Negative (Negative); Occult Blood-Urine Negative /ul (Negative); Protein-Dipstick 15 mg/dl (Negative); Specific Gravity, Urine 1.015 (1.002-1.030); Urine Bilirubin Dipstick Negative (Negative)
[2025-01-26 08:20] LABS: Squamous Epithelial Cells - UA 0-5 SEEN /hpf (5-10)
== END 2025-01-26 08:19 | disposition short-term general hospital (02) ==
PROVIDERS: Emergency Provider Emergency Medicine; PCP Internal Medicine; Visit Provider Emergency Medicine
DX: R10.12 Left upper quadrant pain (principal); S12.9XXA Fracture of neck, unspecified, initial encounter; K83.09 Other cholangitis; E11.9 Type 2 diabetes mellitus without complications; K85.10 Biliary acute pancreatitis without necrosis or infection; Z90.710 Acquired absence of both cervix and uterus; E78.00 Pure hypercholesterolemia, unspecified; I10 Essential (primary) hypertension; Z90.49 Acquired absence of other specified parts of digestive tract; Z85.3 Personal history of malignant neoplasm of breast; K21.9 Gastro-esophageal reflux disease without esophagitis; Z79.899 Other long term (current) drug therapy; J45.909 Unspecified asthma, uncomplicated; Z79.51 Long term (current) use of inhaled steroids; Z79.84 Long term (current) use of oral hypoglycemic drugs; Z90.12 Acquired absence of left breast and nipple; Z96.653 Presence of artificial knee joint, bilateral; Z90.721 Acquired absence of ovaries, unilateral; W19.XXXA Unspecified fall, initial encounter
CPT/HCPCS: 74177; 80053; 81001; 83690; 85025; 96365; 96375; 96376; 99284; Q9967; A4216; J2405

== ENCOUNTER → 2025-02-18 | Outpatient (CLI) | payer MEDICARE, OTHER, SELFPAY ==
[2025-02-18 12:08] LABS: Hematocrit 44.0 % (37-47); Hemoglobin 14.4 g/dL (12.0-15.0); Immature Granulocytes Count 0.010 X10^3/uL (0.0-0.0); Mean Corp Hgb Conc 32.7 g/dL (32-36); Mean Corpuscular Volume 88.7 fL (81-99); Mean Platelet Vol. 9.6 fl (6.2-12.0); NRBC Flagged by Analyzer 0 % (0-5); Platelet Count 259 K/mm3 (150-450); RBC Distribution Width CV 12.8 % (11.6-14.6); RBC Distribution Width SD 42.0 fl (35.1-43.9); Red Blood Count 4.96 M/mm3 (4.2-5.4); White Blood Count 6.7 K/mm3 (4.4-11.0)
[2025-02-18 13:01] LABS: AST(SGOT) 22 U/L (<=31); Alanine Aminotransfer ALT/SGPT 23 U/L (<=34); Albumin, Serum 4.1 g/dL (3.4-4.8); Alkaline Phosphatase 87 U/L (35-104); Anion Gap 11 (5-15); BUN 14 mg/dL (4-19); BUN/Creat Ratio 20.9 RATIO (10-20); Calcium,Total 9.9 mg/dL (7.6-11.0); Carbon Dioxide 27.6 mmol/L (21.0-32.0); Chloride 104 mmol/L (98-108); Globulin 2.7 g/dL (2.2-4.2); Glucose 149 mg/dL (70-99); Lipase 65 U/L (13-75); Potassium 4.1 mmol/L (3.3-5.1)
== END | disposition home or self-care (01) ==
LOC: LAB 11:52
PROVIDERS: PCP Internal Medicine; Referring Provider Student in an Organized Health Care Education/Training Program; Visit Provider Student in an Organized Health Care Education/Training Program
DX: K85.90 Acute pancreatitis without necrosis or infection, unspecified (principal)
CPT/HCPCS: 36415; 80053; 83690; 85025

== ENCOUNTER → 2025-03-18 | Outpatient (CLI) | payer MEDICARE, OTHER, SELFPAY ==
--- NOTE | 2025-03-18 10:30 | MRI_ITS ---
PROCEDURE: MRI ABD WITH AND W/O CONTRAST 03/18/2025 REASON FOR EXAM: HX OF PANCREATITIS TECHNIQUE: Procedure Code: [id number] Modality: MR Procedure: MRI ABD WITH AND W/O CONTRAST Multiplanar and multisequence images were obtained. CONTRAST: Clariscan VOLUME: 15 mL COMPARISON: January 26, 2025 FINDINGS: Liver: Liver is non cirrhotic. No hepatic mass is seen. Biliary: Gallbladder is surgically absent. Pneumobilia is present. The common bile duct is 8.5 mm, which is not unexpected at this patient's age following cholecystectomy. No mass at the ampulla or pancreatic head. No enhancement of the bile duct. The secondary inflammatory change related to recent pancreatitis has resolved. Pancreas: No pancreatic glandular atrophy. No enhancing lesion in the pancreas. No area of pancreatic necrosis. Pancreatic duct is not dilated. The degree of interstitial edematous pancreatitis shown on prior CT has decreased/resolved. Bowel: Large hiatus hernia is seen. 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 This is smaller on today's exam but also contains gas and debris as would be expected. Continuity of this structure can be shown on coronal T2 image 24 and the coronal image of prior CT image 57. Spleen: Normal. Adrenals: Normal Kidneys: Subcentimeter cyst right lower pole. Otherwise, the kidneys are normal. Peritoneum / Retroperitoneum: No free fluid or mass. Lymph Nodes: None appear enlarged Major Vessels: Normal caliber Bones: Curvature of the lumbar spine to the left. Disc space narrowing, marginal endplate spurring is present. MRI/MRI Abd WITH and W/O Contrast IMPRESSION: 1. Cholecystectomy. No biliary ductal dilation or choledocholithiasis. Resol ution of secondary inflammatory change of the bile duct. 2. Resolution of imaging findings related to interstitial edematous pancreatit is. Pancreas is unremarkable. No pseudocyst and no pancreatic necrosis. 3. Gas and debris-filled duodenal diverticulum. Smaller on today's exam. 4. Large hiatus hernia 5. Simple cyst right lower pole of the kidney. Bosniak 1. No follow-up requi red. 6. Curvature lumbar spine with degenerative disc disease. Reading Location: [id number]
== END | disposition home or self-care (01) ==
LOC: MRI 10:25
PROVIDERS: PCP Internal Medicine; Referring Provider Student in an Organized Health Care Education/Training Program; Visit Provider Student in an Organized Health Care Education/Training Program
DX: K85.90 Acute pancreatitis without necrosis or infection, unspecified (principal)
CPT/HCPCS: 74183; A9575

== ENCOUNTER 2025-03-25 11:08 | Day surgery (SDC) | payer MEDICARE, OTHER, SELFPAY ==
--- NOTE | 2025-03-23 09:05 | PAT.ANE_ITS ---
Pre-Assessment Diagnosis/Proposed Procedure Planned Operative Procedure(s): EGD Anesthesia History Anesthesia History - technical coordinator: Anesthesia History - technical coordinator Hx Hospitalization Yes: DECEMBER 2024 NECK FRACTURE 03/23/25 08:33 & PANCREATITIS Any Problems With Anesthesia No 03/23/25 08:33 Cholinesterase deficiency No 03/23/25 08:33 You/Your Family Experience No 03/23/25 08:33 fever (hyperthermia) with Relationship Recent Exposure to Contagious No 02/02/25 15:03 Disease Does patient have nerve No 03/23/25 08:33 stimulator Patient instructed to have device shut off --Does patient have Pacemaker or ICD? When Was Last Pacemaker Check QUESTION #4 FULL TEXT: You/Your Family Experience fever (hyperthermia) with Anesthesia Last Oral Intake Last Oral intake: Last Oral Intake NPO since Meds taken in AM with sips of water? Meds patient instructed to take am of surgery PONV PONV - technical coordinator: PONV - technical coordinator Female Yes 03/23/25 08:33 HX of Motion Sickness Yes 03/23/25 08:33 HX of N/V After Surgery Yes 03/23/25 08:33 Non-Smoker Yes 03/23/25 08:33 Duration of Surgery greater No 03/23/25 08:33 than 60 minutes Number of Risk Factors 4 03/23/25 08:33 PONV Score Severe Risk 03/23/25 08:33 Height & Weight Height & Weight: Anesthesia: Height & Weight Height 5 ft 3 in 02/02/25 15:03 Respiratory Assessment Respiratory Assessment - technical coordinator: Respiratory Tract Infection Hx - technical coordinator Hx Respiratory Tract Infection No 03/23/25 08:33 STOP Sleep Apnea STOP Sleep Apnea - technical coordinator: STOP Sleep Apnea - technical coordinator Hx Hypertension Yes: PER PT, CONTROLLED ON 03/23/25 08:33 MEDS Hx Sleep Apnea No 03/23/25 08:33 CPAP BIPAP Do you snore loudly (louder No 03/23/25 08:33 than talking or can be heard Do you often feel tired/ No 03/23/25 08:33 fatigued/ sleepy during daytime? Has anyone observed you stop No 03/23/25 08:33 breathing during sleep? STOP Results Negative 03/23/25 08:33 QUESTION #5 FULL TEXT : Do you snore loudly (louder than talking or can be heard through closed doors)? 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 Specify any problems HIVES 03/23/25 08:33 Hx of Preganancy in last 3 No 03/23/25 08:33 Months Nurse Filling Out Transfusion AMBER 03/23/25 08:33 & Questions: Date: 03/23/25 03/23/25 08:33 Time: 08:36 03/23/25 08:33 Patient unable to answer at this time (ie. confused, unrespo /Reproduction History /Reproductive History - technical coordinator: /Reproductive Hx- technical coordinator Hx Now No 03/23/25 08:33 Gestational Age (in weeks): EDC: Hx Hx Para Hx Section SAB No 03/23/25 08:33 PFSH Medical History (Updated 03/23/25 @ 08:58 by Haley Kurtz) Double vision Wears glasses Loose, teeth Alcohol use Fibromyalgia History of steroid therapy Bladder disease Easy bruising History of hiatal hernia PONV (postoperative nausea and vomiting) History of edema Non-smoker History of stress test History of rheumatic fever History of strabismus Orbit fracture Delayed emergence from general anesthesia Cancer Closed nondisplaced fracture of first cervical vertebra Closed fracture of nasal septum C2 cervical fracture Acute traumatic injury of cervical spine Retrosternal pain Nausea Epigastric pain Constipation GERD (gastroesophageal reflux disease) Asthma Hypertension Diabetes Thyroid disease Hypercholesterolemia History of left breast cancer Nausea Epigastric pain Screening for intestinal cancer Home Medications ?Medication ?Instructions ?Recorded ?Last Taken ?Type bupropion HCl 300 mg 24 hr tablet, 300 mg PO DAILY Unknown History extended release omeprazole 40 mg capsule,delayed 40 mg PO DAILY Unknown History release dicyclomine 10 mg capsule 10 mg PO PRN PRN cramps 01/31 08/19 Unknown History cholecalciferol (vitamin D3) 25 5,000 unit PO DAILY Unknown History mcg (1,000 unit) capsule fluticasone propionate 50 1 spray intranasal DAILY PRN 06/17/20 Unknown History mcg/actuation nasal Congestion spray,suspension (Children's Flonase Allergy Relief) levothyroxine 50 mcg tablet 112 mcg PO DAILY 06/17/20 Unknown History losartan 100 1 tab PO DAILY 06/17/20 Unkn own History mg-hydrochlorothiazide 25 mg tablet ondansetron HCl 4 mg tablet 4 mg PO Q8H PRN zofran Unknown History (Zofran) rosuvastatin 20 mg tablet 10 mg PO QHS 06/17/20 Unknow n History celecoxib 200 mg capsule 200 mg PO DAILY PRN pain Unknown History empagliflozin 25 mg tablet 25 mg PO DAILY 01/26/25 History (Jardiance) mirabegron 25 mg tablet,extended 25 mg PO DAILY Unknown History release 24 hr (Myrbetriq) diphenhydramine HCl 25 mg tablet 25 mg PO QHS PRN linda rgy symptoms 02/13/25 Unknown History (Allergy (diphenhydramine)) methocarbamol 500 mg tablet 500 mg PO TID PRN muscle s pasm 02/13/25 Unknown History sennosides 8.6 mg tablet (Senokot) 8.6 mg PO QDAY PRN constipation 02/13/25 Unknown History vit C 50 mg-E 15 unit-zinc cit 4.5 1 tab PO QDAY 02/13 Unknown History mg-lutein 2.5 mg-zeaxan chew tablet (TDX) metformin 500 mg tablet 500 mg PO BID 02/18/25 Unkno wn History docusate sodium 100 mg capsule 100 mg PO DAILY PRN PRN 03/23/25 Unknown History (Col-Rite) constipation Allergy/AdvReac Type Severity Reaction Status Date / [facility] Allergy Mild Hives Verified 03/23/25 08:22 Penicillins (PCN) Allergy Hives Verified 03/23/25 08:22 Sulfa (Sulfonamide Allergy Hives Verified 03/23/25 08:22 Antibiotics) neomycin AdvReac Hives Verified 03/23/25 08:22 Family History Father Heart disease Mother Cancer Lung cancer Surgical History (Updated 03/23/25 @ 08:49 by Haley Kurtz) History of back surgery History of colonoscopy History of esophagogastroduodenoscopy (EGD) History of sinus surgery History of hysterectomy history excision lipoma neck history choledochojejunostomy History of left mastectomy History of bilateral knee replacement History of left salpingo-oophorectomy History of cholecystectomy History of appendectomy Social History (Updated 02/13/25 @ 14:54 by Elke Whitney) Smoking Status: Never smoker alcohol intake: never substance use type: does not use what type of physical activity do you participate in: none Audit: Pertinent Findings Pertinent Findings Additional pertinent findings: avoid over extension neck due to neck injury Recommendation Anesthesia Recommendation Anesthesia recommendation: OPTIMIZED for anesthesia
[2025-03-25] VITALS (8 sets, daily range): BP systolic 114–139; BP diastolic 71–80; PULSE 68–88; RESP 16–88; TEMP 36.3–36.6; O2SAT 95–100; BMI 29.7
[2025-03-25] MEDS: Lactated Ringers 1,000 ML 15 ML IV ×2 (11:52→12:54)
--- NOTE | 2025-03-25 12:13 | PCM.PRE.AN2 ---
ASA Classification* ASA Classification ASA Classification: 3 Assessment & Plan Anesthesia* Anesthesia Assessment Anesthesia Assessment: Discussed sedation and/or anesthesia options, risks, benefits, and alternatives with patient/parents/legal guardian/POA. Questions invited. The patient/parents/legal guardian/POA seems to understand and agrees to proceed with anesthesia plan. Reviewed the physical assessment, medical history, allergy history and patient home medications list prior to surgery/procedure/anesthetic and documented any changes. Performed airway and anesthesia risk assessments. Anesthesia Type Anesthesia Type: MAC History Source History Obtained from:: Patient, Chart and Significant Other (Spouse at bedside) Anesthesia Focused Assessment* Temperature: 97.4 F Pulse Rate: 68 Blood Pressure: 139/80 Respiratory Rate: 18 Pulse Ox: 100 Oxygen Delivery Method: Room Air Airway Assessment Mouth opens: >3 cm Mallampati Score: II Teeth Condition: Caps/Crowns and Implants Neck Range of motion (ROM): Limited ROM (Status post fall few months ago with fracture of C1-C2 now out of collar for past 3 weeks. Very limited neck motion.) Labs Anesthesia Preop lab: CBC WBC, (4.4-11.0) 6.7 K/mm3 02/18/25, 11:54 RBC, (4.2-5.4) 4.96 M/mm3 02/18/25, 11:54 Hgb, (12.0-15.0) 14.4 g/dL 02/18/25, 11:54 Hct, (37-47) 44.0 % 02/18/25, 11:54 Plt Count, (150-450) 259 K/mm3 02/18/25, 11:54 CHEMISTRY Potassium, (3.3-5.1) 4.1 mmol/L 02/18/25, 11:54 Sodium, (133-145) 143 mmol/L 02/18/25, 11:54 BUN, (4-19) 14 mg/dL 02/18/25, 11:54 Creatinine, (0.70-1.20) 0.69 mg/dL L 02/18/25, 11:54 Glucose, (70-99) 149 mg/dL H 02/18/25, 11:54 POC Glucose, (70-110) 142 mg/dL H 07/16/20, 08:00 COAG Pre-Assessment Diagnosis/Proposed Procedure Planned Operative Procedure(s): EGD Anesthesia History Anesthesia History - scaffolder: Anesthesia History - scaffolder Hx Hospitalization Yes: DECEMBER 2024 NECK FRACTURE 03/23/25 08:33 & PANCREATITIS Any Problems With Anesthesia No 03/23/25 08:33 Cholinesterase deficiency No 03/23/25 08:33 You/Your Family Experience No 03/23/25 08:33 fever (hyperthermia) with Relationship Recent Exposure to Contagious No 03/25/25 11:38 Disease Does patient have nerve No 03/23/25 08:33 stimulator Patient instructed to have device shut off --Does patient have Pacemaker No 03/25/25 11:38 or ICD? When Was Last Pacemaker Check QUESTION #4 FULL TEXT: You/Your Family Experience fever (hyperthermia) with Anesthesia Last Oral Intake Last Oral intake: Last Oral Intake NPO since 07:00 03/25/25 11:38 Meds taken in AM with sips of No 03/25/25 11:38 water? Meds patient instructed to take am of surgery PONV PONV - scaffolder: PONV - scaffolder Female Yes 03/23/25 08:33 HX of Motion Sickness Yes 03/23/25 08:33 HX of N/V After Surgery Yes 03/23/25 08:33 Non-Smoker Yes 03/23/25 08:33 Duration of Surgery greater No 03/23/25 08:33 than 60 minutes Number of Risk Factors 4 03/23/25 08:33 PONV Score Severe Risk 03/23/25 08:33 Height & Weight Height & Weight: Anesthesia: Height & Weight Height 5 ft 3 in 03/25/25 11:38 Weight: 76 kg 03/25/25 11:38 Body Mass Index (BMI) 29.7 03/25/25 11:38 Respiratory Assessment Respiratory Assessment - scaffolder: Respiratory Tract Infection Hx - scaffolder Hx Respiratory Tract Infection No 03/23/25 08:33 STOP Sleep Apnea STOP Sleep Apnea - scaffolder: STOP Sleep Apnea - scaffolder Hx Hypertension Yes: PER PT, CONTROLLED ON 03/23/25 08:33 MEDS Hx Sleep Apnea No 03/23/25 08:33 CPAP BIPAP Do you snore loudly (louder No 03/23/25 08:33 than talking or can be heard Do you often feel tired/ No 03/23/25 08:33 fatigued/ sleepy during daytime? Has anyone observed you stop No 03/23/25 08:33 breathing during sleep? STOP Results Negative 03/23/25 08:33 QUESTION #5 FULL TEXT : Do you snore loudly (louder than talking or can be heard through closed doors)? Tobacco Use History Tobacco Use History - scaffolder: Tobacco Use History - scaffolder Tobacco Use Smoking Status Never smoker 03/23/25 08:33 Hx Tobacco Use No 03/23/25 08:33 Years Smoking Packs Smoked per Day Smoking Cessation Date was within the last 15 years Hx Smoking Cessation Date Hx Smoking Cessation Counseling Hematologic Medial History Hematologic Hx - scaffolder: Hematologic Medical Hx - phys ther Hx of Blood Transfusion Yes 03/23/25 08:33 Hx of Transfusion in last 3 No 03/23/25 08:33 Months Date of Last Transfusion (if within last 3 months) Ever experience any problems Yes 03/23/25 08:33 with transfusion(s)? Specify any problems HIVES 03/23/25 08:33 Hx of Preganancy in last 3 No 03/23/25 08:33 Months Nurse Filling Out Transfusion MGRIFFITH 03/23/25 08:33 & Questions: Date: 03/23/25 03/23/25 08:33 Time: 08:36 03/23/25 08:33 Patient unable to answer at this time (ie. confused, unrespo /Reproduction History /Reproductive History - scaffolder: /Reproductive Hx- scaffolder Hx Now No 03/23/25 08:33 Gestational Age (in weeks): EDC: Hx Hx Para Hx Section SAB No 03/23/25 08:33 Active Medications Active Medications: Current Medications Generic Name Dose Route Start Last Admin Trade Name Freq PRN Reason Stop Dose Admin Lactated Ringer's 1,000 mls @ 15 mls/hr 03/25/25 11:15 03/25/25 11:52 IV 15 mls/hr .Q48H ANA LAURA Administration PFSH Medical History Double vision Wears glasses Loose, teeth Alcohol use Fibromyalgia History of steroid therapy Bladder disease Easy bruising History of hiatal hernia PONV (postoperative nausea and vomiting) History of edema Non-smoker History of stress test History of rheumatic fever History of strabismus Orbit fracture Delayed emergence from general anesthesia Cancer Closed nondisplaced fracture of first cervical vertebra Closed fracture of nasal septum C2 cervical fracture Acute traumatic injury of cervical spine Retrosternal pain Nausea Epigastric pain Constipation GERD (gastroesophageal reflux disease) Asthma Hypertension Diabetes Thyroid disease Hypercholesterolemia History of left breast cancer Nausea Epigastric pain Screening for intestinal cancer Home Medications ?Medication ?Instructions ?Recorded ?Last Taken ?Type bupropion HCl 300 mg 24 hr tablet, 300 mg PO DAILY 06/17/15 03/24/25 History extended release omeprazole 40 mg capsule,delayed 40 mg PO DAILY 06/17/15 03/24/25 History release dicyclomine 10 mg capsule 10 mg PO PRN PRN cramps 02/20/18 03/20/25 History cholecalciferol (vitamin D3) 25 5,000 unit PO DAILY 06/17/20 03/24/25 History mcg (1,000 unit) capsule fluticasone propionate 50 1 spray intranasal DAILY PRN 06/17/20 03/24/25 History mcg/actuation nasal Congestion spray,suspension (Children's Flonase Allergy Relief) levothyroxine 50 mcg tablet 112 mcg PO DAILY 06/17/20 03/24/25 History losartan 100 1 tab PO DAILY 06/17/20 Unknown History mg-hydrochlorothiazide 25 mg tablet ondansetron HCl 4 mg tablet 4 mg PO Q8H PRN zofran 06/17/20 03/14/25 History (Zofran) rosuvastatin 20 mg tablet 10 mg PO QHS 06/17/20 03/24/25 History celecoxib 200 mg capsule 200 mg PO DAILY PRN pain 01/26/25 03/24/25 History empagliflozin 25 mg tablet 25 mg PO DAILY 01/26/25 03/21/25 History (Jardiance) mirabegron 25 mg tablet,extended 25 mg PO DAILY 01/26/25 03/24/25 History release 24 hr (Myrbetriq) diphenhydramine HCl 25 mg tablet 25 mg PO QHS PRN allergy symptoms 02/13/25 03/24/25 History (Allergy (diphenhydramine)) methocarbamol 500 mg tablet 500 mg PO TID PRN muscle spasm 02/13/25 Unknown History sennosides 8.6 mg tablet (Senokot) 8.6 mg PO QDAY PRN constipation 02/13/25 03/21/25 History vit C 50 mg-E 15 unit-zinc cit 4.5 1 tab PO QDAY 02/13/25 03/24/25 History mg-lutein 2.5 mg-zeaxan chew tablet (Smarp Oy) metformin 500 mg tablet 500 mg PO BID 02/18/25 03/24/25 History docusate sodium 100 mg capsule 100 mg PO DAILY PRN PRN 03/23/25 03/21/25 History (Col-Rite) constipation Allergy/AdvReac Type Severity Reaction Status Date / Time ciprofloxacin (From Cipro) Allergy Mild Hives Verified 03/25/25 11:35 Penicillins (PCN) Allergy Hives Verified 03/25/25 11:35 Sulfa (Sulfonamide Allergy Hives Verified 03/25/25 11:35 Antibiotics) neomycin AdvReac Hives Verified 03/25/25 11:35 Family History Father Heart disease Mother Cancer Lung cancer Surgical History History of back surgery History of colonoscopy History of esophagogastroduodenoscopy (EGD) History of sinus surgery History of hysterectomy history excision lipoma neck history choledochojejunostomy History of left mastectomy History of bilateral knee replacement History of left salpingo-oophorectomy History of cholecystectomy History of appendectomy Social History Smoking Status: Never smoker alcohol intake: never substance use type: does not use what type of physical activity do you participate in: none Review of Systems (Anesthesia) ROS Narrative System reviewed and no additional complaints, except as documented.
--- NOTE | 2025-03-25 12:30 | EGD_PTH ---
PATIENT: ROSSANA GRAHAM LOC: EN U#:[id number] AGE/SX: 74/F ROOM: RE03/25/[address]: Dr. Leno Pina DO : 1950 BED: DIS: 03/25/2025 SPEC #: [id number] RECD: 03/26/25 07:16 STATUS: MAGDA REEliz #: [id number] DOMI: 03/25/25 12:[address]: Leno Pina DEPT: SURGICAL PATHOLOGY RECD BY: Orestes Rubin ENTERED: 03/26/25 07:52 SP TYPE: EGD BIOPSY ALY DR: Dr. Anca Valencia MD Tissues: A - Esophagus, NOS Procedures: Surgery Specimen Level IV HEADER OPERATION: EGD, biopsy PRE-OP DIAGNOSIS: Pancreatitis, nausea, epigastric pain TISSUE SUBMITTED: A- Distal esophagus biopsy MICROSCOPIC DIAGNOSIS A. Distal esophagus, biopsy: * Benign squamous mucosa negative for eosinophils. MICROSCOPIC DESCRIPTION Slides are reviewed. GROSS DESCRIPTION A. Received in fixative is one container labeled with the patient's name and designated Distal esophagus biopsy. The specimen consists of two irregular fragments of childs tissue that measure 0.3 and 0.5 cm. The specimen is totally submitted in one cassette. MS 03/26/2025 CPT:53351
--- NOTE | 2025-03-25 13:42 | PCM.HP.STD ---
HPI - General General Date of Admission: 03/25/25 Date of Service: 03/25/25 Chief Complaint: pancreatitis HPI Narrative MARJORIE GRAHAM, is a 74 F who presents for the evaluation of Chief Complaint: Pancreatitis [facility] ED 7 with LUQ pain and nausea x6 hours. PMHx of cholecystectomy and choledochojejunostomy. CT consistent with acute pancreatitis and elevated lipase. CT also concerning for acute cholangitis. Transferred to [facility] due recent hx of traumatic neck injury and no GI international guest coordinator for ERCP. OV 8 patient doing well since discharge from [facility] at the end of December. She no longer has excruciating abdominal pain. Patient has decreased appetite. She is also struggling with constipation and diarrhea. She has tried MiraLAX and stool softeners. [facility] Medical History Double vision Wears glasses Loose, teeth Alcohol use Fibromyalgia History of steroid therapy Bladder disease Easy bruising History of hiatal hernia PONV (postoperative nausea and vomiting) History of edema Non-smoker History of stress test History of rheumatic fever History of strabismus Orbit fracture Delayed emergence from general anesthesia Cancer Closed nondisplaced fracture of first cervical vertebra Closed fracture of nasal septum C2 cervical fracture Acute traumatic injury of cervical spine Retrosternal pain Nausea Epigastric pain Constipation GERD (gastroesophageal reflux disease) Asthma Hypertension Diabetes Thyroid disease Hypercholesterolemia History of left breast cancer Nausea Epigastric pain Screening for intestinal cancer Home Medications ?Medication ?Instructions ?Recorded ?Last Taken ?Type bupropion HCl 300 mg 24 hr tablet, 300 mg PO DAILY 06/17/15 03/24/25 History extended release omeprazole 40 mg capsule,delayed 40 mg PO DAILY 06/17/15 03/24/25 History release dicyclomine 10 mg capsule 10 mg PO PRN PRN cramps 02/20/18 03/20/25 History cholecalciferol (vitamin D3) 25 5,000 unit PO DAILY 06/17/20 03/24/25 History mcg (1,000 unit) capsule fluticasone propionate 50 1 spray intranasal DAILY PRN 06/17/20 03/24/25 History mcg/actuation nasal Congestion spray,suspension (Children's Flonase Allergy Relief) levothyroxine 50 mcg tablet 112 mcg PO DAILY 06/17/20 03/24/25 History losartan 100 1 tab PO DAILY 06/17/20 Unknown History mg-hydrochlorothiazide 25 mg tablet ondansetron HCl 4 mg tablet 4 mg PO Q8H PRN zofran 06/17/20 03/14/25 History (Zofran) rosuvastatin 20 mg tablet 10 mg PO QHS 06/17/20 03/24/25 History celecoxib 200 mg capsule 200 mg PO DAILY PRN pain 01/26/25 03/24/25 History empagliflozin 25 mg tablet 25 mg PO DAILY 01/26/25 03/21/25 History (Jardiance) mirabegron 25 mg tablet,extended 25 mg PO DAILY 01/26/25 03/24/25 History release 24 hr (Myrbetriq) diphenhydramine HCl 25 mg tablet 25 mg PO QHS PRN allergy symptoms 02/13/25 03/24/25 History (Allergy (diphenhydramine)) methocarbamol 500 mg tablet 500 mg PO TID PRN muscle spasm 02/13/25 Unknown History sennosides 8.6 mg tablet (Senokot) 8.6 mg PO QDAY PRN constipation 02/13/25 03/21/25 History vit C 50 mg-E 15 unit-zinc cit 4.5 1 tab PO QDAY 02/13/25 03/24/25 History mg-lutein 2.5 mg-zeaxan chew tablet ([facility]) metformin 500 mg tablet 500 mg PO BID 02/18/25 03/24/25 History docusate sodium 100 mg capsule 100 mg PO DAILY PRN PRN 03/23/25 03/21/25 History (Col-Rite) constipation Allergy/AdvReac Type Severity Reaction Status Date / Time ciprofloxacin (From Cipro) Allergy Mild Hives Verified 03/25/25 11:35 Penicillins (PCN) Allergy Hives Verified 03/25/25 11:35 Sulfa (Sulfonamide Allergy Hives Verified 03/25/25 11:35 Antibiotics) neomycin AdvReac Hives Verified 03/25/25 11:35 Family History Father Heart disease Mother Cancer Lung cancer Surgical History History of back surgery History of colonoscopy History of esophagogastroduodenoscopy (EGD) History of sinus surgery History of hysterectomy history excision lipoma neck history choledochojejunostomy History of left mastectomy History of bilateral knee replacement History of left salpingo-oophorectomy History of cholecystectomy History of appendectomy Social History Smoking Status: Never smoker alcohol intake: never substance use type: does not use what type of physical activity do you participate in: none ROS Constitutional Constitutional: Denies fatigue, fever(s), poor appetite, weight gain or weight loss Gastrointestinal Gastrointestinal: Denies belching, bloating, change in bowel habits, change in stool character, chewing difficulty, coffee ground emesis, constipation, cramping, diarrhea, dyspepsia, dysphagia, early satiety, excessive flatus, fecal incontinence, heartburn, hematemesis, hematochezia, hemorrhoids, loose stools, melena, nausea, odynophagia, rectal bleeding, tenesmus, vomiting or weight changes Vital Signs Vital Signs Vital Signs: 03/25/25 11:38 03/25/25 11:38 03/25/25 12:16 Temperature 97.4 F L 97.4 F L Temperature Source Temporal Pulse Rate 68 68 Respiratory Rate 18 18 Respiratory Pattern Normal Blood Pressure 139/80 H 139/80 H Blood Pressure Mean 99 Blood Pressure Source Monitor Blood Pressure Position Sitting Blood Pressure Location Right Arm Pulse Ox 100 100 Oxygen Delivery Method Room Air Room Air Weight Weight: 167 lb 8.821 oz Body Mass Index (BMI) 29.7 Physical Exam Const alert, oriented x3, no apparent distress and healthy appearing General Appearance: cooperative GI normal to inspection, nondistended, normoactive bowel sounds, soft to palpation, non-tender and non-distended Percussion: normal to percussion Rectal Exam: deferred Results Lab / Micro Data Labs: Laboratory Results - last 24 hr 03/25/25 11:40: POC Glucose 157 H Assessment & Plan Assessment/Plan (1) Pancreatitis: (2) Nausea: (3) Epigastric pain: PLAN: Plan Assessment and Plan Assessment and Plan (1) Pancreatitis: Status: Acute Plan: Marjorie is a 74-year-old female patient here today for evaluation after hospitalization for acute pancreatitis in December 2024. Patient is status postcholecystectomy and Choledocha-jejunostomy in 1993. Sequence of events over the patient has had an unfortunate past year starting with a sinus surgery that left her with damage to facial nerves and eye problems. Due to her vision problems she had a fall which resulted in a fracture to her cervical spine. January 26, 2025 patient presented to [facility] emergency department with severe epigastric pain. Workup in the ED was concerning for acute pancreatitis with an elevated lipase in the 3000's and CT concerning for acute cholangitis. Patient was not febrile and did not have a leukocytosis. Due to the complexity of the case with cervical spine fracture she was transferred to [facility]. She was treated conservatively and did not end up having to have an ERCP. She was tested for autoimmune pancreatitis with IgG4 which was negative. Triglycerides were normal. Unclear at this time what caused her acute pancreatitis. Recommendation was for outpatient MRI in 4 to 6 weeks to check for resolution. Patient at baseline has reflux and epigastric pain. Last EGD was many years ago. CT did show hiatal hernia and I wonder if this is contributing to some of her upper GI symptoms. She will undergo EGD when she is cleared by the spine doctor. She was scheduled for this today but may cancel if necessary. MRI with and without contrast and MRCP ordered. CBC, CMP and lipase ordered. - EGD - CBC, CMP and lipase - MRI with MRCP - Follow-up as needed Orders: Orders Lipase Today K85.90 - Acute pancreatitis without necrosis or infection, unspecified CBC W/Diff, Automated Today K85.90 - Acute pancreatitis without necrosis or infection, unspecified Comprehensive Metabolic Profil Today K85.90 - Acute pancreatitis without necrosis or infection, unspecified MRI Abd WITH and W/O Contrast Today K85.90 - Acute pancreatitis without necrosis or infection, unspecified Coding
[2025-03-25] MEDS: Lidocaine 1% (5 ml sdv) 5 ML Vial 10 ML IV (13:54)
--- NOTE | 2025-03-25 14:11 | PCM.POST.ANE ---
Anesthesia: Postop Eval I Current Vital Signs Temperature: 97.7 F Pulse Rate: 88 Blood Pressure: 114/74 Respiratory Rate: 88 Pulse Ox: 97 Oxygen Delivery Method: Room Air Assessment Airway patent: Yes Spontaneous unlabored respirations: Yes Mental status: Awake and Calm nausea: No Vomiting: No Anesthesia Complication: No Fluid Hydration Crystalloid volume administer (ml): 300 Total IV fluid infused: 300 Progress Note Anesthesia document: Postop Eval 1 completed: Yes
--- NOTE | 2025-03-25 14:17 | OP.EGD_ITS ---
Patient Name: Marjorie Copeland Procedure Date: 03/25/2025 10:50 AM Date of : 1950 Age: 74 Procedure: Upper GI endoscopy Indications: Epigastric abdominal pain Providers: Leno Pina DO Referring MD: Anca Valencia Medicines: Monitored Anesthesia Care Patient Profile: This is a 74 year old female. Refer to note in patient chart for documentation of history and physical. Patient has symptoms of chronic epigastric abdominal pain and chronic dyspepsia. Complications: No immediate complications. Procedure: Pre-Anesthesia Assessment: - Prior to the procedure, a History and Physical was performed, and patient medications and allergies were reviewed. The patient is competent. The risks and benefits of the procedure and the sedation options and risks were discussed with the patient. All questions were answered and informed consent was obtained. Patient identification and proposed procedure were verified by the physician in the pre-procedure area. Mental Status Examination: alert and oriented. Airway Examination: normal oropharyngeal airway and neck mobility. Respiratory Examination: clear to auscultation. CV Examination: normal. Prophylactic Antibiotics: The patient does not require prophylactic antibiotics. Prior Anticoagulants: The patient has taken no anticoagulant or antiplatelet agents. ASA Grade Assessment: III - A patient with severe systemic disease. After reviewing the risks and benefits, the patient was deemed in satisfactory condition to undergo the procedure. The anesthesia plan was to use monitored anesthesia care (MAC). Immediately prior to administration of medications, the patient was re-assessed for adequacy to receive sedatives. The heart rate, respiratory rate, oxygen saturations, blood pressure, adequacy of pulmonary ventilation, and response to care were monitored throughout the procedure. The physical status of the patient was re-assessed after the procedure. After obtaining informed consent, the endoscope was passed under direct vision. Throughout the procedure, the patient's blood pressure, pulse, and oxygen saturations were monitored continuously. The Endoscope was introduced through the mouth, and advanced to the third part of the duodenum. Small bowel enteroscopy was deemed necessary. The upper GI endoscopy was accomplished without difficulty. The patient tolerated the procedure well. Scope In: 1:59:14 PM Scope Out: 2:01:52 PM Total Procedure Duration Time 0 hours 2 minutes 38 seconds Findings: The Z-line was irregular and was found 30 cm from the incisors. Biopsies were taken with a cold forceps for histology. Verification of patient identification for the specimen was done. Estimated blood loss was minimal. A large hiatal hernia was present. There was evidence of a widely patent previous surgical anastomosis in the first portion of the duodenum. This was characterized by healthy appearing mucosa. Impression: - Z-line irregular, 30 cm from the incisors. Biopsied. - Large hiatal hernia. - Widely patent previous surgical anastomosis, characterized by healthy appearing mucosa was found in the duodenum. Recommendation: - Discharge patient to home. - Resume previous diet. - Continue present medications. - Await pathology results. Procedure Code(s): --- Professional --- 66403, Small intestinal endoscopy, enteroscopy beyond second portion of duodenum, not including ileum; with biopsy, single or multiple CPT copyright 2021 [employer]. All rights reserved. The codes documented in this report are preliminary and upon general assistant review may be revised to meet current compliance requirements. Leno Pina DO 03/25/2025 2:16:38 PM This report has been signed electronically. Number of Addenda: 0 Note Initiated On: 03/25/2025 10:50 AM
--- NOTE | 2025-03-25 14:17 | OP.PROVAT_ITS ---
03/25/2025 Anca Valencia [address] [place] [address] Re : Upper GI endoscopy procedure for Marjorie Copeland Dear Dr. Valencia This procedure was performed on Tuesday, March 25, 2025. My impressions and recommendations are as follows: Impressions : - Z-line irregular, 30 cm from the incisors. Biopsied. - Large hiatal hernia. - Widely patent previous surgical anastomosis, characterized by healthy appearing mucosa was found in the duodenum. Recommendations : - Discharge patient to home. - Resume previous diet. - Continue present medications. - Await pathology results. My findings are described in the full procedure note, which is enclosed. If I can be of further assistance, please feel free to contact me at . Sincerely, Leno Friend, 03/25/2025 2:16:38 PM This report has been signed electronically.
--- NOTE | 2025-03-25 15:48 | POSTOPAN2_ITS ---
Anesthesia Postop Eval I Sum Postop Eval Completion status Anesthesia document: Postop Eval 1 completed: Yes Anesthesia Postop Eval I Summary Anesthesia Postop Eval I Summary: Anesthesia Postop Eval I: Assessment Summary Airway patent Yes 03/25/25 14:12 [email or web address] [email or web address] Spontaneous unlabored Yes 03/25/25 14:12 DELI/BAKERY [email or web address] respirations Mental status Awake,Calm 03/25/25 14:12 DELI/[email or web address] [email or web address] nausea No 03/25/25 14:12 DELI/BAKERY [email or web address] Vomiting No 03/25/25 14:12 DELI/BAKERY [email or web address] Anesthesia Postop Eval I: Fluid Summary Crystalloid volume administer 300 03/25/25 14:12 DELI/BAKERY [email or web address] (ml) Colloids volume administered ( ml) Blood Product volume administered (ml) Total IV fluid infused 300 03/25/25 14:12 DELI/BAKERY [email or web address] Anesthesia Postop Eval I: Summary Notes Anesthesia Complication No 03/25/25 14:12 DELI/BAKERY [email or web address] Anesthesia Complication Comment: Post-operative progress note Anesthesia: Postop Eval II Evaluation Mental status: Awake and Calm Pain Level: 1 nausea: No Vomiting: No Complications Anesthesia Complication: No
--- NOTE | 2025-03-25 15:48 | PCM.POSTANE2 ---
Anesthesia Postop Eval I Sum Postop Eval Completion status Anesthesia document: Postop Eval 1 completed: Yes Anesthesia Postop Eval I Summary Anesthesia Postop Eval I Summary: Anesthesia Postop Eval I: Assessment Summary Airway patent Yes 03/25/25 14:12 THIRD [email or web address] [email or web address] Spontaneous unlabored Yes 03/25/25 14:12 THIRD RAIL [email or web address] respirations Mental status Awake,Calm 03/25/25 14:12 THIRD [email or web address] [email or web address] nausea No 03/25/25 14:12 THIRD RAIL [email or web address] Vomiting No 03/25/25 14:12 THIRD RAIL [email or web address] Anesthesia Postop Eval I: Fluid Summary Crystalloid volume administer 300 03/25/25 14:12 THIRD [email or web address] [email or web address] (ml) Colloids volume administered ( ml) Blood Product volume administered (ml) Total IV fluid infused 300 03/25/25 14:12 THIRD RAIL [email or web address] Anesthesia Postop Eval I: Summary Notes Anesthesia Complication No 03/25/25 14:12 THIRD RAIL [email or web address] Anesthesia Complication Comment: Post-operative progress note Anesthesia: Postop Eval II Evaluation Mental status: Awake and Calm Pain Level: 1 nausea: No Vomiting: No Complications Anesthesia Complication: No
== END 2025-03-25 14:51 | disposition home or self-care (01) ==
LOC: EN 11:08 → AC 11:09
PROVIDERS: PCP Internal Medicine; Referring Provider Internal Medicine; Visit Provider Internal Medicine Gastroenterology
PROC: 0DJ08ZZ Inspection of Upper Intestinal Tract, Via Natural or Artificial Opening Endoscopic (ICD-10-PCS; CPT 43235; principal; 2025-03-25 12:25)
DX: K85.90 Acute pancreatitis without necrosis or infection, unspecified (principal); E11.9 Type 2 diabetes mellitus without complications; E78.00 Pure hypercholesterolemia, unspecified; K21.9 Gastro-esophageal reflux disease without esophagitis; I10 Essential (primary) hypertension; Z90.710 Acquired absence of both cervix and uterus; Z79.899 Other long term (current) drug therapy; J45.909 Unspecified asthma, uncomplicated; Z79.51 Long term (current) use of inhaled steroids; Z79.84 Long term (current) use of oral hypoglycemic drugs; Z90.12 Acquired absence of left breast and nipple; Z96.653 Presence of artificial knee joint, bilateral; Z90.721 Acquired absence of ovaries, unilateral; Z90.49 Acquired absence of other specified parts of digestive tract; R11.0 Nausea; R10.13 Epigastric pain; K44.9 Diaphragmatic hernia without obstruction or gangrene; K22.89 Other specified disease of esophagus
CPT/HCPCS: 44361; 82962; 88305; J2405